=== PATIENT | male | born 1960 | race Caucasian/White ===

== ENCOUNTER 2017-02-09 16:10 | Observation (INO) | payer OTHER ==
[~2017-02-09] VITALS: Ht 177.8 cm; Wt 104.8 kg
[~2017-02-09 16:10] MED LIST: ATEN-173 PO; BNT10 PO; LISI-725 PO; OXYC1TAB3 PO; PRLSR20 PO
[2017-02-09] MEDS ORDERED: ONDANSETRON INJ 2 MG/ML 2 ML VIAL IV STA (16:55)
[2017-02-09] MEDS ORDERED: GI COCKTAIL PO STA (16:55)
[2017-02-09] MEDS ORDERED: ASPIRIN 324 MG CHEW PO STA (16:55)
--- NOTE | 2017-02-09 16:59 | EMERGENCY ROOM VISIT NOTE ---
History Report prepared by Letty: Claudia Amaya Under the Supervision of: Dr. Michael Anna M.D. First contact with patient: 16:43 Chief Complaint: GI ASSESSMENT Stated Complaint: CHEST PAIN, ABDOMINAL PAIN Nursing Triage Summary: blood in stool. abdominal pain for the past several days. chest pains and shortness of breath History of Present Illness The patient is a 56 year old white male with a past medical history of hypertension and reflux who presents to the ED with a cc of constant burning abdominal pain beginning 2 days ago. The patient states that he was seen here 1 month ago for rectal bleeding. He reports that he was having abdominal pain and chest pain that feels crushing and radiates into his left arm and shoulder. The patient notes that he began having rectal bleeding again and this is a recurring issue for him. Positive shortness of breath and fever that resolved yesterday. Negative leg swelling, cough. He notes that he had a bowel movement today that was normal with only a small amount of blood. He rates his pain as a 9/10 in severity. He notes that his pain is worse with exertion. Source of History: patient Onset: 2 days ago Position: abdomen Symptom Intensity: 9/10 Quality: burning Timing: constant Modifying Factors (Worsening): exertion Associated Symptoms: + chest pain, + SOB, No cough Note: Pt denies leg swelling. Review of Systems See HPI for pertinent positives and negatives. A total of ten systems were reviewed and were otherwise negative. Past Medical & Surgical Medical Problems: (1) Abdominal pain (2) Chest pain (3) GERD (gastroesophageal reflux disease) (4) HTN (hypertension) (5) Osteoarthritis (6) Rectal bleeding (7) Rectal bleeding (8) UGIB (upper gastrointestinal bleed) Surgical Problems: (1) History of bilateral knee replacement (2) History of tonsillectomy and adenoidectomy (3) Hx of appendectomy (4) Hx of cholecystectomy (5) Hx of vasectomy Family History No pertinent family history stated. Social History Smoking Status: Never Smoker Alcohol Use: none Marital Status: Housing Status: lives with significant other Occupation Status: employed Current/Historical Medications Scheduled Atenolol (Tenormin), 25 MG PO DAILY Lisinopril (Zestril), 20 MG PO DAILY Omeprazole (Prilosec), 40 MG PO DAILY Scheduled PRN Dicyclomine HCl (Dicyclomine HCl), 10 MG PO BID PRN for cramping Oxycodone Ir (Roxicodone Ir), 5 MG PO Q6 PRN for Severe Pain Allergies Coded Allergies: Ketorolac Tromethamine (Verified Allergy, Unknown, SHORTNESS OF BREATH, RASH, 02/09/17) Physical Exam Vital Signs Date Time Temp Pulse Resp B/P (MAP) Pulse Ox O2 Delivery O2 Flow Rate FiO2 02/09/17 17:45 66 113/60 95 Room Air 02/09/17 17:42 75 109/69 95 Room Air 02/09/17 17:40 69 16 118/72 96 Room Air 02/09/17 17:29 60 02/09/17 16:15 37.1 69 18 111/65 95 Room Air Physical Exam GENERAL: Awake, alert, well-appearing, NAD HENT: Normocephalic, atraumatic. EYES: Normal conjunctiva. Sclera non-icteric. NECK: Supple. No nuchal rigidity. FROM. RESPIRATORY: CTAB, no rhonchi, wheezing, crackles CARDIAC: RRR, no MRG ABDOMEN: Soft, NTND, BS+ MSK: No chest wall TTP, no LE edema. Chest pain is not reproducible NEURO: GCS 15, CN 2-12 intact, moves all 4s on command SKIN: No rash or jaundice noted. Medical Decision & Procedures Laboratory Results 02/09/17 17:15 Red Blood Count 4.65, Mean Corpuscular Volume 87.3, Mean Corpuscular Hemoglobin 30.5, Mean Corpuscular Hemoglobin Concent 35.0, Mean Platelet Volume 9.7, Neutrophils (%) (Auto) 70.2, Lymphocytes (%) (Auto) 19.7, Monocytes (%) (Auto) 7.9, Eosinophils (%) (Auto) 1.8, Basophils (%) (Auto) 0.3, Neutrophils # (Auto) 5.03, Lymphocytes # (Auto) 1.41, Monocytes # (Auto) 0.57, Eosinophils # (Auto) 0.13, Basophils # (Auto) 0.02 02/09/17 17:15 Test 02/09/17 17:00 02/09/17 17:15 Urine Color YELLOW Urine Appearance CLEAR (CLEAR) Urine pH 5.5 (4.5-7.5) Urine Specific [place] 1.021 (1.000-1.030) Urine Protein NEG (NEG) Urine Glucose (UA) NEG (NEG) Urine Ketones NEG (NEG) Urine Occult Blood NEG (NEG) Urine Nitrite NEG (NEG) Urine Bilirubin NEG (NEG) Urine Urobilinogen NEG (NEG) Urine Leukocyte Esterase TRACE (NEG) Urine WBC (Auto) 1-5 /hpf (0-5) Urine RBC (Auto) 0-4 /hpf (0-4) Urine Hyaline Casts (Auto) 1-5 /lpf (0-5) Urine Epithelial Cells (Auto) 5-10 /lpf (0-5) Urine Bacteria (Auto) NEG (NEG) White Blood Count 7.17 K/uL (4.8-10.8) Red Blood Count 4.65 M/uL (4.7-6.1) Hemoglobin 14.2 g/dL (14.0-18.0) Hematocrit 40.6 % (42-52) Mean Corpuscular Volume 87.3 fL (80-100) Mean Corpuscular Hemoglobin 30.5 pg (25-34) Mean Corpuscular Hemoglobin Concent 35.0 g/dl (32-36) Platelet Count 230 K/uL (130-400) Mean Platelet Volume 9.7 fL (7.4-10.4) Neutrophils (%) (Auto) 70.2 % Lymphocytes (%) (Auto) 19.7 % Monocytes (%) (Auto) 7.9 % Eosinophils (%) (Auto) 1.8 % Basophils (%) (Auto) 0.3 % Neutrophils # (Auto) 5.03 K/uL (1.4-6.5) Lymphocytes # (Auto) 1.41 K/uL (1.2-3.4) Monocytes # (Auto) 0.57 K/uL (0.11-0.59) Eosinophils # (Auto) 0.13 K/uL (0-0.5) Basophils # (Auto) 0.02 K/uL (0-0.2) RDW Standard Deviation 40.3 fL (36.4-46.3) RDW Coefficient of Variation 12.5 % (11.5-14.5) Immature Granulocyte % (Auto) 0.1 % Immature Granulocyte # (Auto) 0.01 K/uL (0.00-0.02) Anion Gap 6.0 mmol/L (3-11) Est Creatinine Clear Calc Drug Dose 98.2 ml/min Estimated GFR () 94.3 Estimated GFR (Non- 81.4 BUN/Creatinine Ratio 13.1 (10-20) Calcium Level 8.8 mg/dl (8.5-10.1) Total Bilirubin 0.4 mg/dl (0.2-1) Direct Bilirubin < 0.1 mg/dl (0-0.2) Aspartate Amino Transf (AST/SGOT) 13 U/L (15-37) Alanine Aminotransferase (ALT/SGPT) 32 U/L (12-78) Alkaline Phosphatase 65 U/L (45-117) Troponin I < 0.015 ng/ml (0-0.045) Total Protein 7.5 gm/dl (6.4-8.2) Albumin 4.0 gm/dl (3.4-5.0) Lipase 89 U/L (73-393) Laboratory results reviewed by me Medications Administered Medications (Trade) Dose Ordered Sig/Hayley Route Start Time Stop Time Status Last Admin Dose Admin Nitroglycerin (Nitrostat Tab) 0.4 mg PRN PRN SL 02/09/17 17:00 03/11/17 16:59 02/09/17 17:38 0.4 MG Ondansetron HCl (Zofran Inj) 4 mg NOW STAT IV 02/09/17 16:55 02/09/17 16:57 DC 02/09/17 17:39 4 MG Aspirin (Aspirin Chew) 324 mg NOW STAT PO 02/09/17 16:55 02/09/17 16:57 DC 02/09/17 17:37 324 MG Al Hydroxide/Mg Hydroxide (Maalox Susp) 30 ml STK-MED ONCE .ROUTE 02/09/17 17:34 02/09/17 17:35 DC 02/09/17 17:38 30 ML Lidocaine HCl (Viscous Lidocaine 2% Soln) 20 ml STK-MED ONCE .ROUTE 02/09/17 17:34 02/09/17 17:35 DC 02/09/17 17:38 20 ML Morphine Sulfate (MoRPHine SULFATE INJ) 4 mg NOW STAT IV 02/09/17 17:50 02/09/17 17:51 DC 02/09/17 18:04 4 MG ECG Indication: chest pain Rate (beats per minute): 65 Rhythm: normal sinus Findings: Q waves (l3), left axis deviation, other (t wave flattening inferiorly no other STS or TWI) ED Course 1643: The patient was evaluated in room B3. A complete history and physical exam was performed. 1715: I reevaluated and updated the patient. 1726: Discussed the patient's case with Deidre Davis [facility]-C of [facility]. The patient will be evaluated for further treatment and disposition. 1742: Upon reexamination, the patient was doing well. I discussed the test results and treatment plan with him. The patient will be evaluated for further management. Medical Decision Differential diagnosis: Etiologies such as cardiac ischemia, aortic dissection, pulmonary embolism, pneumonia, pneumothorax, musculoskeletal, infections, pericarditis, myocarditis , esophageal rupture, gastrointestinal, as well as others were entertained. Etiologies such as appendicitis, diverticulitis, PUD, biliary pathology, UTI, pancreatitis, obstruction, mesenteric ischemia, aortic pathology, infections, inflammatory bowel disease, renal colic, as well as others were entertained. Patient was seen and evaluated the bedside. Patient was complaining of chest pain and abdominal pain. Patient states the abdominal abdominal pain was diffuse with some burning and he noticed some rectal bleeding. Patient was recently seen and evaluated for this earlier in the month where he had a negative EGD and a colonoscopy which showed diverticulosis without diverticulitis but did have some internal hemorrhoids. Patient's chest pain was concerning. Patient also does have risk factors of hypertension. Patient has no known early cardiac history in his family. Patient's troponin was negative. Patient's EKG did show some T-wave flattening inferiorly. Patient did receive an aspirin as well as a nitroglycerin. Patient said the nitroglycerin did mildly improved chest pain. I did speak with the admitting team and discussed the patient heart been worked up for his rectal bleeding and that he likely had a source of internal hemorrhoids. However, given the patient 's concerning chest pain story in no prior history of being worked up here benefit from further evaluation treatment. Patient was admitted to medicine. Medication Reconcilliation Current Medication List: was personally reviewed by me Blood Pressure Screening Patient's blood pressure: Normal blood pressure Blood pressure disposition: Did not require urgent referral Consults Time Called: 1720 Consulting Physician: Deidre Davis PA-C of [facility] Returned Call: 1726 Discussed the patient's case with Deidre Medei[facility]. The patient will be evaluated for further treatment and disposition. Impression Primary Impression: Atypical chest pain Scribe Attestation The scribe's documentation has been prepared under my direction and personally reviewed by me in its entirety. I confirm that the note above accurately reflects all work, treatment, procedures, and medical decision making performed by me. Departure Information Dispostion Being Evaluated By Hospitalist Referrals No Doctor, Assigned (PCP) Patient Instructions My [facility]
[2017-02-09] MEDS ORDERED: NITROGLYCERIN 0.4 MG SL PER TAB CHARGE SL PRN ×2 (17:00→19:15)
[2017-02-09] MEDS ORDERED: ALUMINUM/MAGNESIUM SUSP 30 ML UDC ONE (17:34)
[2017-02-09] MEDS ORDERED: LIDOCAINE HCL 2% VISC SOLN 20 ML UDC ONE (17:34)
[2017-02-09 17:46] LABS: URINE APPEARANCE CLEAR (CLEAR); URINE BILIRUBIN NEG (NEG); URINE COLOR YELLOW; URINE NITRITE NEG (NEG); URINE PH 5.5 (4.5-7.5); URINE SPECIFIC GRAVITY 1.021 (1.000-1.030); UROBILINOGEN NEG (NEG); ZZUR CULT IF INDIC CLEAN CATCH NO
[2017-02-09] MEDS ORDERED: MoRPHine SULFATE 4 MG/ML 1 ML CARP\\VIAL IV STA (17:50)
[2017-02-09 17:53] LABS: MANUAL MICROSCOPIC REQUIRED? NO; REVIEW REQ? NO
[2017-02-09 17:54] LABS: BASO % 0.3 %; BASO ABS # 0.02 K/uL (0-0.2); COMPLETE YES; EOS % 1.8 %; HEMATOCRIT 40.6 % (42-52); IG% 0.1 %; LYMPH % 19.7 %; LYMPH ABS # 1.41 K/uL (1.2-3.4); MEAN CELL VOLUME 87.3 fL (80-100); MEAN CORPUSCULAR HEMOGLOBIN 30.5 pg (25-34); MEAN PLATELET VOLUME 9.7 fL (7.4-10.4); MONO % 7.9 %; NEUT % 70.2 %; PLATELET COUNT 230 K/uL (130-400); RED BLOOD COUNT 4.65 M/uL (4.7-6.1); WHITE BLOOD COUNT 7.17 K/uL (4.8-10.8)
[2017-02-09 18:14] LABS: ALT/SGPT 32 U/L (12-78); AST/SGOT 13 U/L (15-37); BLOOD UREA NITROGEN 14 mg/dl (7-18); BUN/CREATININE RATIO 13.1 (10-20); CALCIUM 8.8 mg/dl (8.5-10.1); CARBON DIOXIDE 26 mmol/L (21-32); CHLORIDE 105 mmol/L (98-107); CREATININE 1.03 mg/dl (0.60-1.40); GLUCOSE 84 mg/dl (70-99); POTASSIUM 3.9 mmol/L (3.5-5.1); SODIUM 137 mmol/L (136-145)
[2017-02-09 18:19] LABS: ALKALINE PHOSPHATASE 65 U/L (45-117)
[2017-02-09] MEDS ORDERED: ONDANSETRON INJ 2 MG/ML 2 ML VIAL IV PRN (19:15)
[2017-02-09] MEDS ORDERED: ACETAMINOPHEN 325 MG TAB PO PRN (19:30)
[2017-02-09] MEDS: MoRPHine SULFATE 2 MG/ML CARP IV PRN ×2 (19:40→22:59)
[2017-02-09 20:00] VITALS: BP 130/77; PULSE 55; TEMP 36.8; O2SAT 97; Ht 177.8 cm; Wt 104.8 kg
[2017-02-09] MEDS ORDERED: IV FLUIDS COMPLETED PRN (20:00)
[2017-02-09] MEDS ORDERED: DICYCLOMINE HCL 10 MG CAP PO PRN (20:15)
--- NOTE | 2017-02-09 20:19 | History and Physical ---
History & Physical Date & Time of Service: Feb 09, 2017 at 19:28 Chief Complaint: Chest Pain, Abdominal Pain Primary Care Physician: No Doctor, Assigned History of Present Illness Source: patient Pt is 56 y/o M with PMH HTN, GERD, OA, Hx avascular necrosis, GI bleed presented to ER with c/o CP and abdominal pain. Pt reports past 2 days with upper and lower abdominal pain and yesterday with dark red bleeding per rectum and dark red blood noted in BM's and reports BM was almost black color. Reports 2 bloody BMs yesterday and one today this morning, no bleeding per rectum noted since. Denies vomiting but c/o nausea. States this morning started having mid and left sided pressure and crushing pain that radiates to L arm. [place] a little lightheaded this morning with got up. [place] like noticed some swelling to ankles once or twice a week after prolonged standing, resolves with elevation legs/ feet. Denies CP currently but does c/o epigastric discomfort and abdominal discomfort. Hx GI bleed admitted on 01/17/17. EGD: 01/19/17 - hiatal hernia. Colonoscopy: 01/20/17 - internal hemorrhoids, diverticulosis. 01/17/17: CT abd/ pelvis: no diverticulitis or bowel obstruction. Pt states since d/c he was doing well and not having abdominal pain or rectal bleeding until yesterday. Denies using NSAIDs. Denies fever/chills, diaphoresis, [place], syncope, vision changes, neck pain, SOB, orthopnea, palpitations, cough, sore throat, choking, otalgia, rhinorrhea, paresthesias, weakness, rashes, urinary symptoms. Reports hx stress test couple years ago which he reports was normal. Reports follows with [facility] - follows with [facility] In ER negative troponin. Given ASA, Zofran, GI cocktail without relief. Given nitro and morphine with moderate relief. Vitals stable. H&H stable. Past Medical/Surgical History Medical Problems: (1) GERD (gastroesophageal reflux disease) Status: Chronic (2) HTN (hypertension) Status: Chronic (3) Osteoarthritis Status: Chronic Surgical Problems: (1) History of bilateral knee replacement Status: Resolved (2) History of tonsillectomy and adenoidectomy Status: Resolved (3) Hx of appendectomy Status: Resolved (4) Hx of cholecystectomy Status: Resolved (5) Hx of vasectomy Status: Resolved Family History Diabetes mellitus FATHER FH: CAD (coronary artery disease) FATHER FH: COPD (chronic obstructive pulmonary disease) MOTHER FH: cancer MOTHER (pancreatitic CA) Social History Smoking Status: Never Smoker Smokeless Tobacco Use: No Alcohol Use: none Drug Use: none Marital Status: other (seperated) Occupational Status: employed Allergies Coded Allergies: Ketorolac Tromethamine (Verified Allergy, Unknown, SHORTNESS OF BREATH, RASH, 02/09/17) Home Medications Scheduled Atenolol (Tenormin), 25 MG PO DAILY Lisinopril (Zestril), 20 MG PO DAILY Omeprazole (Prilosec), 40 MG PO DAILY Scheduled PRN Dicyclomine HCl (Dicyclomine HCl), 10 MG PO BID PRN for cramping Oxycodone Ir (Roxicodone Ir), 5 MG PO Q6 PRN for Severe Pain Review of Systems Constitutional: + weight loss (reports lost 20 pounds over past month by changing his diet and walking couple of times a week), No fever, No chills, No sweats, No weakness, No fatigue, No problem reported Eyes: No eye pain, No redness, No discharge, No diplopia ENT: No unusual epistaxis, No nasal symptoms, No sore throat, No tinnitus, No trouble swallowing Respiratory: No sputum, No wheezing, No dyspnea on exertion, No dyspnea at rest , No hemoptysis Cardiovascular: + problem reported (see HPI) Abdomen: + problem reported (see HPI) Musculoskeletal: + joint pain (chronic R hip pain, hx avascular necrosis, on oxycodone Q6H prn pain), No swelling, No calf pain Genitourinary - Male: No hematuria, No dysuria, No urinary frequency, No urinary urgency, No urinary hesitancy, No urinary retention Neurologic: No paralysis, No weakness, No numbness/tingling, No vertigo, No balance problems Psychiatric: No depression symptoms, No anxiety Endocrine: No fatigue, No excessive thirst, No excessive urination Integumentary: No rash, No itch Physical Exam Vital Signs Date Time Temp Pulse Resp B/P (MAP) Pulse Ox O2 Delivery O2 Flow Rate FiO2 02/09/17 17:45 66 113/60 95 Room Air 02/09/17 17:42 75 109/69 95 Room Air 02/09/17 17:40 69 16 118/72 96 Room Air 02/09/17 17:29 60 02/09/17 16:15 37.1 69 18 111/65 95 Room Air General Appearance: no apparent distress, + obese Head: normocephalic, atraumatic Eyes: normal inspection, PERRL, EOMI, sclerae normal ENT: hearing grossly normal, pharynx normal, + pertinent finding (moist mucous membranes) Neck: supple, no JVD, trachea midline Respiratory/Chest: chest non-tender, lungs clear, normal breath sounds, no respiratory distress, no accessory muscle use Cardiovascular: regular rate, rhythm, no edema, no murmur, normal peripheral pulses Abdomen/GI: normal bowel sounds, soft, + pertinent finding (tenderness to epigastric, LLQ without guarding or rebound) Extremities/Musculoskelatal: normal inspection, normal capillary refill, no pedal edema, non-tender 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: alert, normal mood/affect, oriented x 3 Skin: normal color, warm/dry, no rash Diagnostics Laboratory Results Results Past 24 Hours Test 02/09/17 17:00 02/09/17 17:15 Range/Units Urine Color YELLOW Urine Appearance CLEAR CLEAR Urine pH 5.5 4.5-7.5 Urine Specific [place] 1.021 1.000-1.030 Urine Protein NEG NEG Urine Glucose (UA) NEG NEG Urine Ketones NEG NEG Urine Occult Blood NEG NEG Urine Nitrite NEG NEG Urine Bilirubin NEG NEG Urine Urobilinogen NEG NEG Urine Leukocyte Esterase TRACE NEG Urine WBC (Auto) 1-5 0-5 /hpf Urine RBC (Auto) 0-4 0-4 /hpf Urine Hyaline Casts (Auto) 1-5 0-5 /lpf Urine Epithelial Cells (Auto) 5-10 0-5 /lpf Urine Bacteria (Auto) NEG NEG White Blood Count 7.17 4.8-10.8 K/uL Red Blood Count 4.65 4.7-6.1 M/uL Hemoglobin 14.2 14.0-18.0 g/dL Hematocrit 40.6 42-52 % Mean Corpuscular Volume 87.3 80-100 fL Mean Corpuscular Hemoglobin 30.5 25-34 pg Mean Corpuscular Hemoglobin Concent 35.0 32-36 g/dl Platelet Count 230 130-400 K/uL Mean Platelet Volume 9.7 7.4-10.4 fL Neutrophils (%) (Auto) 70.2 % Lymphocytes (%) (Auto) 19.7 % Monocytes (%) (Auto) 7.9 % Eosinophils (%) (Auto) 1.8 % Basophils (%) (Auto) 0.3 % Neutrophils # (Auto) 5.03 1.4-6.5 K/uL Lymphocytes # (Auto) 1.41 1.2-3.4 K/uL Monocytes # (Auto) 0.57 0.11-0.59 K/uL Eosinophils # (Auto) 0.13 0-0.5 K/uL Basophils # (Auto) 0.02 0-0.2 K/uL RDW Standard Deviation 40.3 36.4-46.3 fL RDW Coefficient of Variation 12.5 11.5-14.5 % Immature Granulocyte % (Auto) 0.1 % Immature Granulocyte # (Auto) 0.01 0.00-0.02 K/uL Sodium Level 137 136-145 mmol/L Potassium Level 3.9 3.5-5.1 mmol/L Chloride Level 105 98-107 mmol/L Carbon Dioxide Level 26 21-32 mmol/L Anion Gap 6.0 3-11 mmol/L Blood Urea Nitrogen 14 7-18 mg/dl Creatinine 1.03 0.60-1.40 mg/dl Est Creatinine Clear Calc Drug Dose 98.2 ml/min Estimated GFR () 94.3 Estimated GFR (Non- 81.4 BUN/Creatinine Ratio 13.1 10-20 Random Glucose 84 70-99 mg/dl Calcium Level 8.8 8.5-10.1 mg/dl Total Bilirubin 0.4 0.2-1 mg/dl Direct Bilirubin < 0.1 0-0.2 mg/dl Aspartate Amino Transf (AST/SGOT) 13 15-37 U/L Alanine Aminotransferase (ALT/SGPT) 32 12-78 U/L Alkaline Phosphatase 65 45-117 U/L Troponin I < 0.015 0-0.045 ng/ml Total Protein 7.5 6.4-8.2 gm/dl Albumin 4.0 3.4-5.0 gm/dl Lipase 89 73-393 U/L EKG EKG: NSR, rate 65, no significant changes noted from 01/17/17 Impression Assessment and Plan CHEST PAIN R/O ACS. Risk factors: HTN, obesity Vitals stable. Negative initial troponin. Pt reports relief with nitro and morphine. EKG: NSR rate [address] elevations noted. Will add CXR. -Monitor Vitals - Repeat EKG in am - Will trend cardiac enzymes - ECHO -Cardiology consult -lipid panel in AM -ASA -continue atenolol -Nitro prn CP and repeat EKG for CP -Morphine prn CP ABDOMINAL PAIN/RECTAL BLEEDING Reports dark red blood and dark black color stools past 2 days, last time blood per rectum this am. Pt with 2 recent abd/pelvis CT scans since 12/2016. Will hold on additional at this time and continue to monitor and consider if worsening. Hx colonoscopy 01/20/17 showing internal hemorrhoids and diverticulosis. Hx EGD 01/19/17 showing hiatal hernia. Suspect diverticular vs hemorrhoid bleeding -monitor H&H -repeat CBC, CMP in am -protonix IV -zofran prn -morphine prn pain -NSS 75ml/hr -clear liquids -continue dicyclomine prn -consider imaging if worsening -consider GI consult if worsening/no improvement HTN BP stable at this time -continue atenolol -continue lisinopril GERD -PPI OA/CHRONIC HIP PAIN -continue oxycodone Q6H prn pain DVT PROPHYLAXIS -SCDs DISPOSITION -admit tele -Full Code as per discussion with pt -Follows with [facility] for routine care Pt was seen with Dr Morgan. See addendum Agree with above H and P. Briefly 56m presents with ongoing abdominal pain since last few days.Also noticed some rectal bleeding. Today he also noticed chest pain going to his left jaw and arm. Currently resting comfortably and hemodynamically stable. 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 abdominal pain/rectal bleeding recently had egd and colonoscopy showing internal hemorrhoids and diverticulosis monitor h and h consider gi consult Level of Care Telemetry Resuscitation Status FULL RESUSCITATION VTE Prophylaxis VTE Risk Assessment Done? Y/N: Yes Risk Level: Moderate Given or contraindicated: SCD's
[2017-02-09] MEDS: OXYCODONE HCL IR 5 MG TAB (IMMEDIATE RELEASE) PO PRN (20:45)
[2017-02-09] MEDS: PANTOprazole INJ 40 MG in SYRINGE 0 ML IV SCH (20:45)
[2017-02-09] MEDS: SODIUM CHLORIDE 0.9% 1000ML 1,000 ML IV SCH (20:45)
--- NOTE | 2017-02-09 22:52 | DIAGNOSTIC IMAGING REPORT ---
CHEST 2 VIEWS ROUTINE CLINICAL HISTORY: 56 years-old Male presenting with CP. TECHNIQUE: PA and lateral views of the chest were obtained. COMPARISON: 01/17/2017. FINDINGS: The presence of multiple external leads degrade image quality. Allowing for this, cardiomediastinal silhouette normal. Lungs and pleural spaces clear. Osseous structures normal. Cholecystectomy clips likely present. IMPRESSION: 1. No acute cardiopulmonary disease. Electronically signed by: Valeriano Regalado M.D. 02/09/2017 10:51 PM Dictated Date/Time: 02/09/2017 10:50 PM
[2017-02-09 23:22] LABS: CKMB/CK RATIO 1.5 (0-3.0)
[2017-02-09 23:49] VITALS: BP 93/51; PULSE 65; TEMP 36.6; O2SAT 96
[2017-02-10] VITALS (8 sets, daily range): BP systolic 85–142; BP diastolic 52–80; PULSE 52–64; TEMP 36.5–36.7; O2SAT 95–99
[2017-02-10] MEDS: MoRPHine SULFATE 2 MG/ML CARP IV PRN ×2 (03:33→06:44)
[2017-02-10 05:41] LABS: HEMATOCRIT 37.1 % (42-52); MEAN CELL VOLUME 88.5 fL (80-100); MEAN CORPUSCULAR HEMOGLOBIN 29.4 pg (25-34); MEAN CORPUSCULAR HGB CONC 33.2 g/dl (32-36); MEAN PLATELET VOLUME 9.6 fL (7.4-10.4); PLATELET COUNT 201 K/uL (130-400); RED BLOOD COUNT 4.19 M/uL (4.7-6.1); WHITE BLOOD COUNT 5.65 K/uL (4.8-10.8)
[2017-02-10 06:16] LABS: ALT/SGPT 26 U/L (12-78); AST/SGOT 9 U/L (15-37); BLOOD UREA NITROGEN 15 mg/dl (7-18); BUN/CREATININE RATIO 13.5 (10-20); CARBON DIOXIDE 29 mmol/L (21-32); CHLORIDE 107 mmol/L (98-107); GLUCOSE 84 mg/dl (70-99); POTASSIUM 3.8 mmol/L (3.5-5.1); SODIUM 142 mmol/L (136-145)
[2017-02-10 06:33] LABS: ALB/GLOB RATIO 1.2 (0.9-2); ALKALINE PHOSPHATASE 54 U/L (45-117); CHOLESTEROL 101 mg/dl (0-200); CHOLESTEROL/HDL RATIO 3.6; CKMB/CK RATIO 2.3 (0-3.0); HDL CHOLESTEROL 28 mg/dl; LDL CHOLESTEROL CALCULATED 48 mg/dl; TRIGLYCERIDES 124 mg/dl (0-150); VERY LOW DENSITY LIPOPROT CALC 25 mg/dl
[2017-02-10] MEDS: SODIUM CHLORIDE 0.9% 1000ML 1,000 ML IV SCH (08:56)
[2017-02-10] MEDS: PANTOprazole INJ 40 MG in SYRINGE 0 ML IV SCH (08:59)
[2017-02-10] MEDS ORDERED: LISINOPRIL 20 MG TAB PO SCH (09:00)
[2017-02-10] MEDS ORDERED: ASPIRIN 81 MG ECTAB PO SCH (09:00)
[2017-02-10] MEDS: OXYCODONE HCL IR 5 MG TAB (IMMEDIATE RELEASE) PO PRN (10:21)
[2017-02-10] MEDS ORDERED: ACETAMINOPHEN IV 100 ML IV PRN (11:30)
--- NOTE | 2017-02-10 12:44 | Cardiology Consultation ---
Cardiology Consultation Date of Consultation: Feb 10, 2017 History of Present Illness Patrice Cr is a 56 year old male seen in cardiology consultation per the request of Koki Davis PA-C for the evaluation of chest discomfort. The patient is cared for by the [facility], and does not follow routinely with cardiology. He believes that he had a stress test performed approximately 3 years ago which was reportedly normal per the patient. His recent history is notable for an admission to this institution from 01/17/17 and 01/21/17 with rectal bleeding. He had a CT of the abdomen and pelvis that revealed pandiverticulosis. He went on to have an EGD without any significant abnormalities. Colonoscopy revealed diverticulosis. No stock that perhaps his rectal bleeding was due to diverticulosis, infectious colitis, or even hemorrhoidal bleeding. He was ultimately discharged. He noted that his abdominal discomfort that he felt during that hospitalization and rectal bleeding had subsided for some time. Approximately 2 days ago however he started to have additional blood mixed in with his stool. And then he started having left-sided abdominal discomfort that radiated to his left chest and even into his left shoulder. Although he describes some exertional component to the discomfort, for the most part the pain is persistent and occurs when he is lying flat. During my interview with him, he did not appear to be in any acute distress. He did express frustration because he is not feeling well. Morphine had palliated his discomfort, but this was subsequently discontinued due to concerns that was causing his blood pressure to get too low. He describes an 8/ 10 intensity discomfort, he certainly did not appear to be in acute distress during my interview with him. Past Medical/Surgical History Problem List: Medical Problems: (1) Abdominal pain (2) Chest pain (3) GERD (gastroesophageal reflux disease) (4) HTN (hypertension) (5) Osteoarthritis (6) Rectal bleeding (7) Rectal bleeding (8) UGIB (upper gastrointestinal bleed) Surgical Problems: (1) History of bilateral knee replacement (2) History of tonsillectomy and adenoidectomy (3) Hx of appendectomy (4) Hx of cholecystectomy (5) Hx of vasectomy History Social History: Patient is retired from the [employer]. He is a nonsmoker. He is to drink significant amount of alcohol, but quit 10 years ago Family History: Patient has family history of ischemic heart disease is father is alive at age 83 with history of past cardiac catheterization and cardiac stents per his recollection. The patient's mother several years ago due to palpitations of COPD. She was smoker, and she also probably had heart disease the details of which are unknown to the patient. The patient has a brother and sister, he does not know their heart history well , but does not believe that they have any known heart disease. Review Of Systems See above for pertinent positives & negatives. A total of 10 systems reviewed and were otherwise negative. Allergies Coded Allergies: Ketorolac Tromethamine (Verified Allergy, Unknown, SHORTNESS OF BREATH, RASH, 02/09/17) Medications Reported Home Medications Medications Dose Route/Sig Max Daily Dose Days Date Category Dicyclomine HCl 10 Mg Cap 10 Mg PO BID PRN 3 01/21/17 Rx Prilosec (Omeprazole) 20 Mg Capcr 40 Mg PO DAILY 01/17/17 Reported Roxicodone Ir (Oxycodone HCl) 5 Mg Tab 5 Mg PO Q6 PRN 01/17/17 Reported Tenormin (Atenolol) 25 Mg Tab 25 Mg PO DAILY 01/17/17 Reported Zestril (Lisinopril) 20 Mg Tab 20 Mg PO DAILY 01/17/17 Reported Physical Exam Vital Signs (Last 8hrs): Last 8 Hrs Date Time Temp Pulse Resp B/P (MAP) Pulse Ox O2 Delivery O2 Flow Rate FiO2 02/10/17 12:19 99 Room Air 02/10/17 10:54 36.7 64 20 130/80 (97) 99 Room Air 02/10/17 08:00 Room Air 02/10/17 07:23 36.6 52 20 104/66 (79) 95 Room Air 02/10/17 06:41 110/72 (85) General Appearance: Alert and Oriented x3. NAD. Head: Normocephalic Atraumatic. Eyes: PERRLA, EOMI, conjunctiva and sclera clear Neck: Supple. No carotid bruits noted. No JVD. No HJD. Respiratory: Breath sounds clear to auscultation bilaterally. No w/r/r. Cardiovascular: Reg rate and rhythm. S1 and S2 noted. No murmurs, rubs, gallops. PMI non displace. Abdomen: Normal bowel sounds, abdomen is soft, patient describes tenderness on palpation of the left upper quadrant of the abdomen, as well as palpation over his left chest, he does not grimace, does not guard with this. Extremities: No edema, no clubbing or cyanosis. distal pulses 2/4 bilaterally. Neuro: No focal deficits. Psychiatric: Normal affect. Data Last Resulted 02/10/17 05:14 Last Resulted 02/10/17 05:14 Past 24 Hours Test 02/09/17 17:15 02/09/17 22:52 02/10/17 05:14 Range/Units Troponin I < 0.015 < 0.015 < 0.015 0-0.045 ng/ml Creatine Kinase MB 0.6 0.7 0.5-3.6 ng/ml Creatine Kinase MB Ratio 1.5 2.3 0-3.0 Total Creatine Kinase 41 30 L 39-308 U/L EKG performed on arrival to the hospital again this morning reveals stable sinus rhythm without any significant ST changes or serial cardiac enzymes have been negative thus far. Resting echocardiogram reveals normal wall motion abnormalities, no significant valvular heart disease Assessment & Plan Impression: 56-year-old male 1. Left upper quadrant pain and chest discomfort. -Patient symptoms are atypical for angina. He states his symptoms have waxed and waned well over 48 hours, with no EKG changes, normal cardiac enzymes. I would anticipate that if these were anginal, he would have developed troponin elevation, EKG changes were echocardiographic changes. -His discomfort is also reproduced with palpation, this would be atypical for angina. 2. Recent rectal bleeding 3. Family history of ischemic heart disease Plan: The present time, with his symptoms do not sound like angina from a clinical standpoint. I agree with ongoing GI evaluation which is already in progress. Will continue to monitor the patient peripherally. Further cardiac testing is felt to be indicated at this time.
--- NOTE | 2017-02-10 13:16 | ECHOCARDIOGRAM REPORT ---
*NOTICE TO RECEIVING LIBERTARIAN AGENCY This information is strictly Confidential and protected under [place] law. [place] law prohibits you from making any further disclosure of this information unless further disclosure is expressly permitted by the written consent of the person to whom it pertains or is authorized by law. A general authorization for the release of medical or other information is not sufficient for this purpose. Hospital accepts no responsibility if the information is made available to any other person, INCLUDING THE PATIENT. Interpretation Summary * Name: TAL GU Study Date: 02/10/2017 09:08 AM BP: 104/66 mmHg * Patient Location: [facility] HR: 52 * : 1960 (M/d/yyyy) Gender: Male Height: 70 in * Age: 56 yrs Ethnicity: [place] Weight: 231 lb * Ordering Physician: Koki Davis * Referring Physician: Self, Referred * Performed By: Yessi Young RDCS * * Reason For Study: Chest Pain * BSA: 2.2 m2 * The study was technically adequate. * -- Conclusions -- * The study was technically adequate. * There is mild concentric left ventricular hypertrophy. * No regional wall motion abnormalities noted. * The LV Ejection Fraction = 55-60%. * The right ventricle is normal in size and function. * The left atrium is mildly dilated. * Diastolic dysfunction, Grade II (pseudonormalization pattern). * There is trace mitral regurgitation. * Doppler findings do not suggest pulmonary hypertension. Procedure Details * A complete two-dimensional transthoracic echocardiogram was performed (2D, M-mode, Doppler and color flow Doppler). Left Ventricle * The left ventricle is normal in size. * There is mild concentric left ventricular hypertrophy. * Ejection Fraction = 55-60%. * Left ventricular systolic function is normal. * The left ventricular wall motion is normal. * No regional wall motion abnormalities noted. Right Ventricle * The right ventricle is normal in size and function. Atria * The left atrium is mildly dilated. * Right atrial size is normal. * There is no evidence of atrial septal defect, but resolution does not allow assessment for a patent foramen ovale. Mitral Valve * The mitral valve is normal. * There is no mitral valve stenosis. * There is trace mitral regurgitation. Tricuspid Valve * The tricuspid valve is normal. * There is no tricuspid stenosis. * Significant tricuspid regurgitation is absent. * Doppler findings do not suggest pulmonary hypertension. Aortic Valve * The aortic valve is trileaflet. * Aortic stenosis is absent. * There is no significant aortic regurgitation. Pulmonic Valve * The pulmonary valve is inadequately visualized, but the Doppler data is adequate for interpretation. * Pulmonic stenosis is absent. * Mild pulmonic valvular regurgitation. Great Vessels * The aortic root and proximal ascending aorta are normal sized. Pericardium/Pleural * There is no pericardial effusion. Great Vessels * Normal inferior vena cava diameter and respiratory variation suggests normal central venous pressure. Left Ventricular Diastolic Function * Diastolic dysfunction, Grade II (pseudonormalization pattern). MMode 2D Measurements and Calculations IVSd 1.2 cm IVSs 1.4 cm LVIDd 4.6 cm LVIDs 3.0 cm LVPWd 1.4 cm LVPWs 1.3 cm IVS/LVPW 0.84 FS 34.1 % EDV(Teich) 97.5 ml ESV(Teich) 35.9 ml EF(Teich) 63.2 % EDV(cubed) 97.5 ml ESV(cubed) 27.9 ml EF(cubed) 71.4 % % IVS thick 12.6 % % LVPW thick -11.74 % LV mass(C)d 236.9 grams LV mass(C)dI 106.7 grams/m\S\2 LV mass(C)s 128.7 grams LV mass(C)sI 58.0 grams/m\S\2 SV(Teich) 61.6 ml SI(Teich) 27.7 ml/m\S\2 SV(cubed) 69.7 ml SI(cubed) 31.4 ml/m\S\2 Ao root diam 3.2 cm Ao root area 8.1 cm\S\2 ACS 2.3 cm LA dimension 4.2 cm LA/Ao 1.3 LVAd ap4 35.7 cm\S\2 LVLd ap4 8.9 cm EDV(MOD-sp4) 124.3 ml EDV(sp4-el) 121.4 ml LVAs ap4 21.7 cm\S\2 LVLs ap4 7.3 cm ESV(MOD-sp4) 57.1 ml ESV(sp4-el) 54.6 ml EF(MOD-sp4) 54.1 % EF(sp4-el) 55.1 % LVAd ap2 36.3 cm\S\2 LVLd ap2 9.1 cm EDV(MOD-sp2) 129.7 ml EDV(sp2-el) 123.3 ml LVAs ap2 23.2 cm\S\2 LVLs ap2 8.0 cm ESV(MOD-sp2) 64.9 ml ESV(sp2-el) 57.2 ml EF(MOD-sp2) 50.0 % EF(sp2-el) 53.6 % LVLd %diff 1.7 % EDV(MOD-bp) 128.7 ml LVLs %diff 7.9 % ESV(MOD-bp) 62.6 ml EF(MOD-bp) 51.3 % SV(MOD-sp4) 67.3 ml SI(MOD-sp4) 30.3 ml/m\S\2 SV(MOD-sp2) 64.8 ml SI(MOD-sp2) 29.2 ml/m\S\2 SV(MOD-bp) 66.1 ml SI(MOD-bp) 29.8 ml/m\S\2 SV(sp4-el) 66.8 ml SI(sp4-el) 30.1 ml/m\S\2 SV(sp2-el) 66.1 ml SI(sp2-el) 29.8 ml/m\S\2 Doppler Measurements and Calculations MV E max ted 89.7 cm/sec MV A max ted 61.6 cm/sec MV E/A 1.5 MV dec time 0.27 sec Ao V2 max 120.5 cm/sec Ao max PG 5.8 mmHg Ao max PG (full) 2.3 mmHg LV V1 max PG 3.5 mmHg LV V1 max 93.9 cm/sec PA V2 max 124.2 cm/sec PA max PG 6.2 mmHg PI max ted 194.8 cm/sec PI max PG 15.3 mmHg PI dec slope 120.5 cm/sec\S\2 PI P1/2t 473.6 msec
[2017-02-10 13:31] LABS: BASO % 0.4 %; BASO ABS # 0.02 K/uL (0-0.2); COMPLETE YES; EOS % 2.6 %; HEMATOCRIT 38.6 % (42-52); IG% 0.2 %; LYMPH % 26.7 %; LYMPH ABS # 1.46 K/uL (1.2-3.4); MEAN CELL VOLUME 87.9 fL (80-100); MEAN CORPUSCULAR HEMOGLOBIN 29.8 pg (25-34); MEAN CORPUSCULAR HGB CONC 33.9 g/dl (32-36); MEAN PLATELET VOLUME 9.4 fL (7.4-10.4); MONO % 6.4 %; NEUT % 63.7 %; PLATELET COUNT 184 K/uL (130-400); RED BLOOD COUNT 4.39 M/uL (4.7-6.1); WHITE BLOOD COUNT 5.47 K/uL (4.8-10.8)
--- NOTE | 2017-02-10 13:55 | DIAGNOSTIC IMAGING REPORT ---
KUB CLINICAL HISTORY: Generalized abdominal pain. FINDINGS: 2 AP supine abdominal radiographs are correlated with abdominal CT dated 01/17/2017. Cholecystectomy clips are identified in the right upper quadrant. There is a nonobstructed abdominal bowel gas pattern. Prostatic calcifications are identified in the pelvis. There is no radiographic evidence of nephrolithiasis. No evidence of intraperitoneal free air is seen on these supine views. The bony structures appear intact. IMPRESSION: Nonobstructed abdominal bowel gas pattern. Electronically signed by: Sedrick Francis M.D. 02/10/2017 1:54 PM Dictated Date/Time: 02/10/2017 1:53 PM
--- NOTE | 2017-02-10 14:37 | Gastrointestinal Consultation ---
Gastrointestinal Consultation Date of Consultation: Feb 10, 2017 Attending Physician: Dr. Ac Consulting Physician: Dr. Guerrero Reason for Consultation: " Abdomen pain, anemia" History of Present Illness Patient is a 56 year old male patient of the [facility] who presented to the ED yesterday with c/o chest and abdomen pain and report of BMs that were black with red blood. He was also admitted here Jan 17 for abdominal pain. He tells me that he had been well since that discharge, until yesterday when he felt the urge to defecate, began with abdominal pain and nausea, noticed some anal pain during defecation and passed a formed dark brown BM (not quite black) with a little red mixed into the stool. He has not had vomiting. He pain has continued since then. On arrival, troponin and EKG was normal. Echo was normal as well. I spoke with Dr. Cintron who does not plan for further cardiac evaluation. Hb was 14 on arrival, down to 12.3 today. His baseline appears to be approx 13. BUN was 14 on arrival and is 15 today. A nurse's aid tells me that today, the patient passed a brown, formed BM without any blood and that a sample was sent for occult testing. The pt tells me that he has not passed a BM since arrival. LFTs , and lipase are normal. During his Jan 17 admission for abdominal pain, EGD was normal and colonoscopy showed only internal hemorrhoids. A non contrast CT on 01/17/17 suggested baer-diverticulosis, post cholecystectomy and appendectomy, no acute changes. Today, a KUB does not show obstruction. His abdomen is soft on palpation though he indicated pain throughout. No guarding was present on exam. Of note, he is on chronic narcotics for avascular necrosis. Currently, he is describing an 8 or 9 of 10 pain and tells us that the morphine didn't work and that Dilaudid worked in the past. He lives in [place] and seeks care through the [facility] in [place], [place] where he lived until about a year ago. He tells me that he does not go to the [facility] - that the ED there has been "shut down." Past Medical/Surgical History Medical Problems: (1) Atypical chest pain Status: Acute (2) Upper GI bleed Status: Acute Past Medical History: 1. GERD 2. HTN 3. Osteoarthritis 4. Avascular necrosis of the hip, on chronic narcotics. Past Surgical History: 1. EGD 01/19/17 Dr. Jarrett for abdominal pain: - Hiatus hernia. - Normal stomach. - Normal examined duodenum. - No specimens collected. : 2. Colonoscopy 01/20/17 for abdominal pain, rectal bleeding: - Diverticulosis in the sigmoid colon and in the descending colon. - The examined portion of the ileum was normal. - Internal hemorrhoids. - No specimens collected. Rec: Repeat colonoscopy in 5 years for screening purposes. 3. Cholecystectomy 4. Appendectomy Family History Diabetes mellitus FATHER FH: CAD (coronary artery disease) FATHER FH: COPD (chronic obstructive pulmonary disease) MOTHER FH: cancer MOTHER (pancreatitic CA) Social History Smoking Status: Never Smoker Alcohol Use: none Drug Use: none Marital Status: other (seperated) Housing Status: lives with significant other Occupation Status: employed Allergies Coded Allergies: Ketorolac Tromethamine (Verified Allergy, Unknown, SHORTNESS OF BREATH, RASH, 02/09/17) Current Medications Home Meds and Scripts Medications Dose Route/Sig Max Daily Dose Days Date Category Dicyclomine HCl 10 Mg Cap 10 Mg PO BID PRN 3 01/21/17 Rx Prilosec (Omeprazole) 20 Mg Capcr 40 Mg PO DAILY 01/17/17 Reported Roxicodone Ir (Oxycodone HCl) 5 Mg Tab 5 Mg PO Q6 PRN 01/17/17 Reported Tenormin (Atenolol) 25 Mg Tab 25 Mg PO DAILY 01/17/17 Reported Zestril (Lisinopril) 20 Mg Tab 20 Mg PO DAILY 01/17/17 Reported Review of Systems Constitutional: No fever, No chills, No sweats, No weight loss, No weakness Eyes: No eye pain, No redness ENT: No sore throat, No trouble swallowing, No pain on swallowing Respiratory: No cough, No wheezing, No shortness of breath, No dyspnea on exertion Cardiac: No chest pain, No edema, No palpitations Abdomen: + see HPI, + pain, + nausea, + GI bleeding, No vomiting, No diarrhea, No constipation Neuro: No memory loss, No weakness, No numbness/tingling, No vertigo, No balance problems Psych: No depression symptoms, No anxiety, No insomnia Heme: No abnormal bleeding/bruising, No night sweats Endo: No excessive thirst, No excessive urination Skin: No rash, No itch, No new/changing skin lesions, No jaundice Physical Exam Date Time Temp Pulse Resp B/P (MAP) Pulse Ox O2 Delivery O2 Flow Rate FiO2 02/10/17 10:54 36.7 64 20 130/80 (97) 99 Room Air 02/10/17 08:00 Room Air 02/10/17 07:23 36.6 52 20 104/66 (79) 95 Room Air 02/10/17 06:41 110/72 (85) 02/10/17 04:19 36.5 54 16 85/52 (63) 96 Room Air 02/10/17 04:00 Room Air 02/10/17 00:00 Room Air 02/09/17 23:49 36.6 65 17 93/51 (65) 96 Room Air 02/09/17 20:00 36.8 55 16 130/77 97 Room Air 02/09/17 19:42 72 15 120/58 97 Room Air 02/09/17 17:45 66 113/60 95 Room Air 02/09/17 17:42 75 109/69 95 Room Air 02/09/17 17:40 69 16 118/72 96 Room Air 02/09/17 17:29 60 02/09/17 16:15 37.1 69 18 111/65 95 Room Air General Appearance: + moderate distress Eyes: normal inspection, EOMI Neck: supple, no adenopathy, thyroid normal, no JVD Respiratory/Chest: chest non-tender, lungs clear, normal breath sounds, no accessory muscle use Cardiovascular: regular rate, rhythm, no JVD, no murmur Abdomen: normal bowel sounds, soft, no organomegaly, + tenderness (moderately tender over the entire abdomen, no guarding), + pertinent finding (able to sit up well in bed) Extremities: normal inspection, no pedal edema, normal capillary refill 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: alert, normal mood/affect, oriented x 3 Skin: normal color, no jaundice, warm/dry, no rash Laboratory Results Last 24 Hours Test 02/09/17 17:00 02/09/17 17:15 02/09/17 22:52 02/10/17 05:14 Urine Color YELLOW Urine Appearance CLEAR Urine pH 5.5 Urine Specific Francisco 1.021 Urine Protein NEG Urine Glucose (UA) NEG Urine Ketones NEG Urine Occult Blood NEG Urine Nitrite NEG Urine Bilirubin NEG Urine Urobilinogen NEG Urine Leukocyte Esterase TRACE Urine WBC (Auto) 1-5 /hpf Urine RBC (Auto) 0-4 /hpf Urine Hyaline Casts (Auto) 1-5 /lpf Urine Epithelial Cells (Auto) 5-10 /lpf Urine Bacteria (Auto) NEG White Blood Count 7.17 K/uL 5.65 K/uL Red Blood Count 4.65 M/uL 4.19 M/uL Hemoglobin 14.2 g/dL 12.3 g/dL Hematocrit 40.6 % 37.1 % Mean Corpuscular Volume 87.3 fL 88.5 fL Mean Corpuscular Hemoglobin 30.5 pg 29.4 pg Mean Corpuscular Hemoglobin Concent 35.0 g/dl 33.2 g/dl Platelet Count 230 K/uL 201 K/uL Mean Platelet Volume 9.7 fL 9.6 fL Neutrophils (%) (Auto) 70.2 % Lymphocytes (%) (Auto) 19.7 % Monocytes (%) (Auto) 7.9 % Eosinophils (%) (Auto) 1.8 % Basophils (%) (Auto) 0.3 % Neutrophils # (Auto) 5.03 K/uL Lymphocytes # (Auto) 1.41 K/uL Monocytes # (Auto) 0.57 K/uL Eosinophils # (Auto) 0.13 K/uL Basophils # (Auto) 0.02 K/uL RDW Standard Deviation 40.3 fL 40.5 fL RDW Coefficient of Variation 12.5 % 12.7 % Immature Granulocyte % (Auto) 0.1 % Immature Granulocyte # (Auto) 0.01 K/uL Sodium Level 137 mmol/L 142 mmol/L Potassium Level 3.9 mmol/L 3.8 mmol/L Chloride Level 105 mmol/L 107 mmol/L Carbon Dioxide Level 26 mmol/L 29 mmol/L Anion Gap 6.0 mmol/L 6.0 mmol/L Blood Urea Nitrogen 14 mg/dl 15 mg/dl Creatinine 1.03 mg/dl 1.10 mg/dl Est Creatinine Clear Calc Drug Dose 98.2 ml/min 92.0 ml/min Estimated GFR () 94.3 87.1 Estimated GFR (Non- 81.4 75.2 BUN/Creatinine Ratio 13.1 13.5 Random Glucose 84 mg/dl 84 mg/dl Calcium Level 8.8 mg/dl 8.0 mg/dl Total Bilirubin 0.4 mg/dl 0.2 mg/dl Direct Bilirubin < 0.1 mg/dl Aspartate Amino Transf (AST/SGOT) 13 U/L 9 U/L Alanine Aminotransferase (ALT/SGPT) 32 U/L 26 U/L Alkaline Phosphatase 65 U/L 54 U/L Troponin I < 0.015 ng/ml < 0.015 ng/ml < 0.015 ng/ml Total Protein 7.5 gm/dl 5.9 gm/dl Albumin 4.0 gm/dl 3.2 gm/dl Lipase 89 U/L Total Creatine Kinase 41 U/L 30 U/L Creatine Kinase MB 0.6 ng/ml 0.7 ng/ml Creatine Kinase MB Ratio 1.5 2.3 Globulin 2.7 gm/dl Albumin/Globulin Ratio 1.2 Triglycerides Level 124 mg/dl Cholesterol Level 101 mg/dl HDL Cholesterol 28 mg/dl LDL Cholesterol, Calculated 48 mg/dl VLDL Cholesterol, Calculated 25 mg/dl Cholesterol/HDL Ratio 3.6 Test 02/10/17 11:15 Impression Patient is a 56 year old male with diffuse abdominal pain. Differentials considered are IBS, constipation, narcotic bowel. The pt's reported blood in stool yesterday was likely related to hemorrhoids. He has not had a significant drop in his Hb, thus this does not represent a significant GI bleed. Plan 1. Agree with dicyclomine, though pt tells me it is not effective. 2. May have some pain from constipation. Would add Miralax BID. Attg addendum: I interviewed and examined pt, reviewed chart and labs. Pt with persistent abd discomfort, neg recent w/u. Cont Dicylcomine, can consider w/u for osbcure causes of pain (porphyria, mesenteric dopplers).
[2017-02-10] MEDS ORDERED: POLYETHYLENE (MIRALAX) 17 GM PACK PO ONE (15:15)
--- NOTE | 2017-02-10 15:26 | Progress Note ---
Internal Med Progress Note Date of Service: Feb 10, 2017. Provider Documentation: SUBJECTIVE: Patient seen at bedside. Throughout the day patient has been asking for narcotic pain medications. Initially it was for symptoms described as chest pain with pain radiating down the left arm. Then the concern was more of the anterior abdomen. Patient has had cardiac and gastrointestinal workup that did not find evidence for heart attack or GI bleed. OBJECTIVE: Exam: General- no acute distress, resting on bed Eyes- EOMI ENT- no epistaxis Neck- no JVD Lungs- clear to auscultation bilaterally Heart- regular rate Abdomen- soft, no guarding, + bowel sounds Extremities- no edema Neuro- no focal necrological deficits ASSESSMENT & PLAN: Pt is 56 y/o M with PMH HTN, GERD, OA, Hx avascular necrosis, GI bleed presented to ER with chest pain radiating to left arm, abdominal pain, and blood in bowel movement. During this hospital stay, patient was monitored on telemetry. Troponins negative x 3. Echocardiogram performed: * There is mild concentric left ventricular hypertrophy. * No regional wall motion abnormalities noted. * Ejection Fraction = 55-60%. * The right ventricle is normal in size and function. * The left atrium is mildly dilated. * Diastolic dysfunction, Grade II (pseudonormalization pattern). * There is trace mitral regurgitation. * Doppler findings do not suggest pulmonary hypertension. Procedure Details * A complete two-dimensional transthoracic echocardiogram was performed (2D, M-mode, Doppler and color flow Doppler). Left Ventricle * The left ventricle is normal in size. * There is mild concentric left ventricular hypertrophy. * Ejection Fraction = 55-60%. * Left ventricular systolic function is normal. * The left ventricular wall motion is normal. * No regional wall motion abnormalities noted. Right Ventricle * The right ventricle is normal in size and function. Atria * The left atrium is mildly dilated. * Right atrial size is normal. * There is no evidence of atrial septal defect, but resolution does not allow assessment for a patent foramen ovale. Mitral Valve * The mitral valve is normal. * There is no mitral valve stenosis. * There is trace mitral regurgitation. Tricuspid Valve * The tricuspid valve is normal. * There is no tricuspid stenosis. * Significant tricuspid regurgitation is absent. * Doppler findings do not suggest pulmonary hypertension. Aortic Valve * The aortic valve is trileaflet. * Aortic stenosis is absent. * There is no significant aortic regurgitation. Pulmonic Valve * The pulmonary valve is inadequately visualized, but the Doppler data is adequate for interpretation. * Pulmonic stenosis is absent. * Mild pulmonic valvular regurgitation. Great Vessels * The aortic root and proximal ascending aorta are normal sized. Pericardium/Pleural * There is no pericardial effusion. Great Vessels * Normal inferior vena cava diameter and respiratory variation suggests normal central venous pressure. Left Ventricular Diastolic Function * Diastolic dysfunction, Grade II (pseudonormalization pattern). Patient was evaluated by cardiology service. There is no supporting evidence for acute coronary syndrome based on labs and telemetry and EKG and echocardiogram results KUB CLINICAL HISTORY: Generalized abdominal pain. FINDINGS: 2 AP supine abdominal radiographs are correlated with abdominal CT dated 01/17/2017. Cholecystectomy clips are identified in the right upper quadrant. There is a nonobstructed abdominal bowel gas pattern. Prostatic calcifications are identified in the pelvis. There is no radiographic evidence of nephrolithiasis. No evidence of intraperitoneal free air is seen on these supine views. The bony structures appear intact. IMPRESSION: Nonobstructed abdominal bowel gas pattern. Patient was also evaluated by gastroenterology service. "Differentials considered are IBS, constipation, narcotic bowel. The pt's reported blood in stool yesterday was likely related to hemorrhoids. He has not had a significant drop in his Hb, thus this does not represent a significant GI bleed." Patient prefers to follow up as outpatient with his [place] affiliated primary care doctor for the above gastroenterology differentials As per recommendations of the gastroenterology attending: "Pt with persistent abd discomfort, neg recent w/u. Cont Dicylcomine, can consider w/u for obscure causes of pain (porphyria, mesenteric dopplers)" These above gastroenterology differentials can be investigated by the patient's clinic physician Disposition: patient discharged to home with expectation of following up with his [place] affiliated primary acre doctor. Patient was asked to return to the emergency room if pain symptoms worsen Vital Signs: Date Time Temp Pulse Resp B/P (MAP) Pulse Ox O2 Delivery O2 Flow Rate FiO2 02/10/17 15:41 36.6 61 18 142/77 (98) 98 Room Air 02/10/17 14:31 36.7 64 20 99 02/10/17 12:19 99 Room Air 02/10/17 10:54 36.7 64 20 130/80 (97) 99 Room Air 02/10/17 08:00 Room Air 02/10/17 07:23 36.6 52 20 104/66 (79) 95 Room Air 02/10/17 06:41 110/72 (85) 02/10/17 04:19 36.5 54 16 85/52 (63) 96 Room Air 02/10/17 04:00 Room Air 02/10/17 00:00 Room Air 02/09/17 23:49 36.6 65 17 93/51 (65) 96 Room Air 02/09/17 20:00 36.8 55 16 130/77 97 Room Air 02/09/17 19:42 72 15 120/58 97 Room Air 02/09/17 17:45 66 113/60 95 Room Air 02/09/17 17:42 75 109/69 95 Room Air 02/09/17 17:40 69 16 118/72 96 Room Air 02/09/17 17:29 60 02/09/17 16:15 37.1 69 18 111/65 95 Room Air Lab Results: Results Past 24 Hours Test 02/09/17 17:00 02/09/17 17:15 02/09/17 22:52 02/10/17 05:14 Range/Units Urine Color YELLOW Urine Appearance CLEAR CLEAR Urine pH 5.5 4.5-7.5 Urine Specific [place] 1.021 1.000-1.030 Urine Protein NEG NEG Urine Glucose (UA) NEG NEG Urine Ketones NEG NEG Urine Occult Blood NEG NEG Urine Nitrite NEG NEG Urine Bilirubin NEG NEG Urine Urobilinogen NEG NEG Urine Leukocyte Esterase TRACE NEG Urine WBC (Auto) 1-5 0-5 /hpf Urine RBC (Auto) 0-4 0-4 /hpf Urine Hyaline Casts (Auto) 1-5 0-5 /lpf Urine Epithelial Cells (Auto) 5-10 0-5 /lpf Urine Bacteria (Auto) NEG NEG White Blood Count 7.17 5.65 4.8-10.8 K/uL Red Blood Count 4.65 4.19 4.7-6.1 M/uL Hemoglobin 14.2 12.3 14.0-18.0 g/dL Hematocrit 40.6 37.1 42-52 % Mean Corpuscular Volume 87.3 88.5 80-100 fL Mean Corpuscular Hemoglobin 30.5 29.4 25-34 pg Mean Corpuscular Hemoglobin Concent 35.0 33.2 32-36 g/dl Platelet Count 230 201 130-400 K/uL Mean Platelet Volume 9.7 9.6 7.4-10.4 fL Neutrophils (%) (Auto) 70.2 % Lymphocytes (%) (Auto) 19.7 % Monocytes (%) (Auto) 7.9 % Eosinophils (%) (Auto) 1.8 % Basophils (%) (Auto) 0.3 % Neutrophils # (Auto) 5.03 1.4-6.5 K/uL Lymphocytes # (Auto) 1.41 1.2-3.4 K/uL Monocytes # (Auto) 0.57 0.11-0.59 K/uL Eosinophils # (Auto) 0.13 0-0.5 K/uL Basophils # (Auto) 0.02 0-0.2 K/uL RDW Standard Deviation 40.3 40.5 36.4-46.3 fL RDW Coefficient of Variation 12.5 12.7 11.5-14.5 % Immature Granulocyte % (Auto) 0.1 % Immature Granulocyte # (Auto) 0.01 0.00-0.02 K/uL Sodium Level 137 142 136-145 mmol/L Potassium Level 3.9 3.8 3.5-5.1 mmol/L Chloride Level 105 107 98-107 mmol/L Carbon Dioxide Level 26 29 21-32 mmol/L Anion Gap 6.0 6.0 3-11 mmol/L Blood Urea Nitrogen 14 15 7-18 mg/dl Creatinine 1.03 1.10 0.60-1.40 mg/dl Est Creatinine Clear Calc Drug Dose 98.2 92.0 ml/min Estimated GFR () 94.3 87.1 Estimated GFR (Non- 81.4 75.2 BUN/Creatinine Ratio 13.1 13.5 10-20 Random Glucose 84 84 70-99 mg/dl Calcium Level 8.8 8.0 8.5-10.1 mg/dl Total Bilirubin 0.4 0.2 0.2-1 mg/dl Direct Bilirubin < 0.1 0-0.2 mg/dl Aspartate Amino Transf (AST/SGOT) 13 9 15-37 U/L Alanine Aminotransferase (ALT/SGPT) 32 26 12-78 U/L Alkaline Phosphatase 65 54 45-117 U/L Troponin I < 0.015 < 0.015 < 0.015 0-0.045 ng/ml Total Protein 7.5 5.9 6.4-8.2 gm/dl Albumin 4.0 3.2 3.4-5.0 gm/dl Lipase 89 73-393 U/L Total Creatine Kinase 41 30 39-308 U/L Creatine Kinase MB 0.6 0.7 0.5-3.6 ng/ml Creatine Kinase MB Ratio 1.5 2.3 0-3.0 Globulin 2.7 2.5-4.0 gm/dl Albumin/Globulin Ratio 1.2 0.9-2 Triglycerides Level 124 0-150 mg/dl Cholesterol Level 101 0-200 mg/dl HDL Cholesterol 28 mg/dl LDL Cholesterol, Calculated 48 mg/dl VLDL Cholesterol, Calculated 25 mg/dl Cholesterol/HDL Ratio 3.6 Test 02/10/17 13:02 Range/Units White Blood Count 5.47 4.8-10.8 K/uL Red Blood Count 4.39 4.7-6.1 M/uL Hemoglobin 13.1 14.0-18.0 g/dL Hematocrit 38.6 42-52 % Mean Corpuscular Volume 87.9 80-100 fL Mean Corpuscular Hemoglobin 29.8 25-34 pg Mean Corpuscular Hemoglobin Concent 33.9 32-36 g/dl Platelet Count 184 130-400 K/uL Mean Platelet Volume 9.4 7.4-10.4 fL Neutrophils (%) (Auto) 63.7 % Lymphocytes (%) (Auto) 26.7 % Monocytes (%) (Auto) 6.4 % Eosinophils (%) (Auto) 2.6 % Basophils (%) (Auto) 0.4 % Neutrophils # (Auto) 3.49 1.4-6.5 K/uL Lymphocytes # (Auto) 1.46 1.2-3.4 K/uL Monocytes # (Auto) 0.35 0.11-0.59 K/uL Eosinophils # (Auto) 0.14 0-0.5 K/uL Basophils # (Auto) 0.02 0-0.2 K/uL RDW Standard Deviation 40.5 36.4-46.3 fL RDW Coefficient of Variation 12.6 11.5-14.5 % Immature Granulocyte % (Auto) 0.2 % Immature Granulocyte # (Auto) 0.01 0.00-0.02 K/uL Amylase Level 33 25-115 U/L Microbiology Results 02/10/17 Shiga Toxin Test, Christophe Batch Pending 02/10/17 Stool Culture, Christophe Batch Pending
[2017-02-10] MEDS ORDERED: MRLP17 PO (15:43)
--- NOTE | 2017-02-10 15:45 | Discharge Instructions ---
Discharge Instructions Date of Service Feb 10, 2017. Admission Reason for Admission: Abdominal Pain, Chest Pain Discharge Discharge Diagnosis / Problem: atypical noncardiac chest pain, abdominal pain Discharge Goals Goal(s): Decrease discomfort Activity Recommendations Activity Limitations: per Instructions/Follow-up section Lifting Limitations: until after follow-up appointment Exercise/Sports Limitations: until after follow-up appointment Shower/Bathe: no limitations . Instructions / Follow-Up Instructions / Follow-Up Pt is 56 y/o M with PMH HTN, GERD, OA, Hx avascular necrosis, GI bleed presented to ER with chest pain radiating to left arm, abdominal pain, and blood in bowel movement. During this hospital stay, patient was monitored on telemetry. Troponins negative x 3. Echocardiogram performed: * There is mild concentric left ventricular hypertrophy. * No regional wall motion abnormalities noted. * Ejection Fraction = 55-60%. * The right ventricle is normal in size and function. * The left atrium is mildly dilated. * Diastolic dysfunction, Grade II (pseudonormalization pattern). * There is trace mitral regurgitation. * Doppler findings do not suggest pulmonary hypertension. Procedure Details * A complete two-dimensional transthoracic echocardiogram was performed (2D, M-mode, Doppler and color flow Doppler). Left Ventricle * The left ventricle is normal in size. * There is mild concentric left ventricular hypertrophy. * Ejection Fraction = 55-60%. * Left ventricular systolic function is normal. * The left ventricular wall motion is normal. * No regional wall motion abnormalities noted. Right Ventricle * The right ventricle is normal in size and function. Atria * The left atrium is mildly dilated. * Right atrial size is normal. * There is no evidence of atrial septal defect, but resolution does not allow assessment for a patent foramen ovale. Mitral Valve * The mitral valve is normal. * There is no mitral valve stenosis. * There is trace mitral regurgitation. Tricuspid Valve * The tricuspid valve is normal. * There is no tricuspid stenosis. * Significant tricuspid regurgitation is absent. * Doppler findings do not suggest pulmonary hypertension. Aortic Valve * The aortic valve is trileaflet. * Aortic stenosis is absent. * There is no significant aortic regurgitation. Pulmonic Valve * The pulmonary valve is inadequately visualized, but the Doppler data is adequate for interpretation. * Pulmonic stenosis is absent. * Mild pulmonic valvular regurgitation. Great Vessels * The aortic root and proximal ascending aorta are normal sized. Pericardium/Pleural * There is no pericardial effusion. Great Vessels * Normal inferior vena cava diameter and respiratory variation suggests normal central venous pressure. Left Ventricular Diastolic Function * Diastolic dysfunction, Grade II (pseudonormalization pattern). Patient was evaluated by cardiology service. There is no supporting evidence for acute coronary syndrome based on labs and telemetry and EKG and echocardiogram results KUB CLINICAL HISTORY: Generalized abdominal pain. FINDINGS: 2 AP supine abdominal radiographs are correlated with abdominal CT dated 01/17/2017. Cholecystectomy clips are identified in the right upper quadrant. There is a nonobstructed abdominal bowel gas pattern. Prostatic calcifications are identified in the pelvis. There is no radiographic evidence of nephrolithiasis. No evidence of intraperitoneal free air is seen on these supine views. The bony structures appear intact. IMPRESSION: Nonobstructed abdominal bowel gas pattern. Patient was also evaluated by gastroenterology service. "Differentials considered are IBS, constipation, narcotic bowel. The pt's reported blood in stool yesterday was likely related to hemorrhoids. He has not had a significant drop in his Hb, thus this does not represent a significant GI bleed." Patient prefers to follow up as outpatient with his [place] affiliated primary care doctor for the above gastroenterology differentials As per recommendations of the gastroenterology attending: "Pt with persistent abd discomfort, neg recent w/u. Cont Dicylcomine, can consider w/u for obscure causes of pain (porphyria, mesenteric dopplers)" These above gastroenterology differentials can be investigated by the patient's clinic physician Disposition: patient discharged to home with expectation of following up with his [place] affiliated primary acre doctor. Patient was asked to return to the emergency room if pain symptoms worsen Current Hospital Diet Patient's current hospital diet: Clear Liquid Diet Discharge Diet Recommended Diet: Regular Diet Pending Studies Studies pending at discharge: no Laboratory Results 02/10/17 13:02 Red Blood Count 4.39, Mean Corpuscular Volume 87.9, Mean Corpuscular Hemoglobin 29.8, Mean Corpuscular Hemoglobin Concent 33.9, Mean Platelet Volume 9.4, Neutrophils (%) (Auto) 63.7, Lymphocytes (%) (Auto) 26.7, Monocytes (%) (Auto) 6.4, Eosinophils (%) (Auto) 2.6, Basophils (%) (Auto) 0.4, Neutrophils # (Auto) 3.49, Lymphocytes # (Auto) 1.46, Monocytes # (Auto) 0.35, Eosinophils # (Auto) 0.14, Basophils # (Auto) 0.02 02/10/17 05:14 Test 02/09/17 17:00 02/09/17 17:15 02/10/17 05:14 02/10/17 13:02 Urine Color YELLOW Urine Appearance CLEAR (CLEAR) Urine pH 5.5 (4.5-7.5) Urine Specific [place] 1.021 (1.000-1.030) Urine Protein NEG (NEG) Urine Glucose (UA) NEG (NEG) Urine Ketones NEG (NEG) Urine Occult Blood NEG (NEG) Urine Nitrite NEG (NEG) Urine Bilirubin NEG (NEG) Urine Urobilinogen NEG (NEG) Urine Leukocyte Esterase TRACE (NEG) Urine WBC (Auto) 1-5 /hpf (0-5) Urine RBC (Auto) 0-4 /hpf (0-4) Urine Hyaline Casts (Auto) 1-5 /lpf (0-5) Urine Epithelial Cells (Auto) 5-10 /lpf (0-5) Urine Bacteria (Auto) NEG (NEG) Direct Bilirubin < 0.1 mg/dl (0-0.2) Lipase 89 U/L (73-393) Anion Gap 6.0 mmol/L (3-11) Est Creatinine Clear Calc Drug Dose 92.0 ml/min Estimated GFR () 87.1 Estimated GFR (Non- 75.2 BUN/Creatinine Ratio 13.5 (10-20) Calcium Level 8.0 mg/dl (8.5-10.1) Total Bilirubin 0.2 mg/dl (0.2-1) Aspartate Amino Transf (AST/SGOT) 9 U/L (15-37) Alanine Aminotransferase (ALT/SGPT) 26 U/L (12-78) Alkaline Phosphatase 54 U/L (45-117) Total Creatine Kinase 30 U/L (39-308) Creatine Kinase MB 0.7 ng/ml (0.5-3.6) Creatine Kinase MB Ratio 2.3 (0-3.0) Troponin I < 0.015 ng/ml (0-0.045) Total Protein 5.9 gm/dl (6.4-8.2) Albumin 3.2 gm/dl (3.4-5.0) Globulin 2.7 gm/dl (2.5-4.0) Albumin/Globulin Ratio 1.2 (0.9-2) Triglycerides Level 124 mg/dl (0-150) Cholesterol Level 101 mg/dl (0-200) HDL Cholesterol 28 mg/dl LDL Cholesterol, Calculated 48 mg/dl VLDL Cholesterol, Calculated 25 mg/dl Cholesterol/HDL Ratio 3.6 White Blood Count 5.47 K/uL (4.8-10.8) Red Blood Count 4.39 M/uL (4.7-6.1) Hemoglobin 13.1 g/dL (14.0-18.0) Hematocrit 38.6 % (42-52) Mean Corpuscular Volume 87.9 fL (80-100) Mean Corpuscular Hemoglobin 29.8 pg (25-34) Mean Corpuscular Hemoglobin Concent 33.9 g/dl (32-36) Platelet Count 184 K/uL (130-400) Mean Platelet Volume 9.4 fL (7.4-10.4) Neutrophils (%) (Auto) 63.7 % Lymphocytes (%) (Auto) 26.7 % Monocytes (%) (Auto) 6.4 % Eosinophils (%) (Auto) 2.6 % Basophils (%) (Auto) 0.4 % Neutrophils # (Auto) 3.49 K/uL (1.4-6.5) Lymphocytes # (Auto) 1.46 K/uL (1.2-3.4) Monocytes # (Auto) 0.35 K/uL (0.11-0.59) Eosinophils # (Auto) 0.14 K/uL (0-0.5) Basophils # (Auto) 0.02 K/uL (0-0.2) RDW Standard Deviation 40.5 fL (36.4-46.3) RDW Coefficient of Variation 12.6 % (11.5-14.5) Immature Granulocyte % (Auto) 0.2 % Immature Granulocyte # (Auto) 0.01 K/uL (0.00-0.02) Amylase Level 33 U/L (25-115) Date/Time Source Procedure Growth Status 02/10/17 12:17 Stool Shiga Toxin Test Pending [facility] Batch 02/10/17 12:17 Stool Stool Culture Pending [facility] Batch Lipid Panel Test 11/28/17 05:14 Range/Units Triglycerides Level 124 0-150 mg/dl Cholesterol Level 101 0-200 mg/dl HDL Cholesterol 28 mg/dl Cholesterol/HDL Ratio 3.6 LDL Cholesterol, Calculated 48 mg/dl Medical Emergencies . Who to Call and When: Medical Emergencies: If at any time you feel your situation is an emergency, please call 911 immediately. . Non-Emergent Contact Non-Emergency issues call your: Primary Care Provider . . "Provider Documentation" section prepared by Hugh Ac. . VTE Core Measure Inpt VTE Proph given/why not?: SCD's
--- NOTE | 2017-02-10 15:46 | Discharge Summary ---
Discharge Summary Date of Service Feb 10, 2017. Discharge Summary Admission Date: Feb 09, 2017 at 19:05 Discharge Date: Feb 10, 2017 Discharge Disposition: Home Principal Diagnosis: atypical noncardiac chest pain, abdominal pain Medication Reconciliation New Medications: Polyethylene (Miralax) 17 Gm Pow 17 GM PO BID for 30 Days, #1 CAN 1 Refill Continued Medications: Atenolol (Tenormin) 25 Mg Tab 25 MG PO DAILY, TAB Dicyclomine HCl (Dicyclomine HCl) 10 Mg Cap 10 MG PO BID PRN for cramping for 3 Days, #6 CAP Lisinopril (Zestril) 20 Mg Tab 20 MG PO DAILY, TAB Omeprazole (Prilosec) 20 Mg Capcr 40 MG PO DAILY, CAP Oxycodone Ir (Roxicodone Ir) 5 Mg Tab 5 MG PO Q6 PRN for Severe Pain, TAB Admission Information HPI (per Admitting provider): Pt is 56 y/o M with PMH HTN, GERD, OA, Hx avascular necrosis, GI bleed presented to ER with c/o CP and abdominal pain. Pt reports past 2 days with upper and lower abdominal pain and yesterday with dark red bleeding per rectum and dark red blood noted in BM's and reports BM was almost black color. Reports 2 bloody BMs yesterday and one today this morning, no bleeding per rectum noted since. Denies vomiting but c/o nausea. States this morning started having mid and left sided pressure and crushing pain that radiates to L arm. [place] a little lightheaded this morning with got up. [place] like noticed some swelling to ankles once or twice a week after prolonged standing, resolves with elevation legs/ feet. Denies CP currently but does c/o epigastric discomfort and abdominal discomfort. Hx GI bleed admitted on 01/17/17. EGD: 01/19/17 - hiatal hernia. Colonoscopy: 01/20/17 - internal hemorrhoids, diverticulosis. 01/17/17: CT abd/ pelvis: no diverticulitis or bowel obstruction. Pt states since d/c he was doing well and not having abdominal pain or rectal bleeding until yesterday. Denies using NSAIDs. Denies fever/chills, diaphoresis, SULTANA, syncope, vision changes, neck pain, SOB, orthopnea, palpitations, cough, sore throat, choking, otalgia, rhinorrhea, paresthesias, weakness, rashes, urinary symptoms. Reports hx stress test couple years ago which he reports was normal. Reports follows with [facility] - follows with [facility] negative troponin. Given ASA, Zofran, GI cocktail without relief. Given nitro and morphine with moderate relief. Vitals stable. H&H stable. Physical Exam (per Admitting): General Appearance: no apparent distress, + obese Head: normocephalic, atraumatic Eyes: normal inspection, PERRL, EOMI, sclerae normal ENT: hearing grossly normal, pharynx normal, + pertinent finding (moist mucous membranes) Neck: supple, no JVD, trachea midline Respiratory/Chest: chest non-tender, lungs clear, normal breath sounds, no respiratory distress, no accessory muscle use Cardiovascular: regular rate, rhythm, no edema, no murmur, normal peripheral pulses Abdomen/GI: normal bowel sounds, soft, + pertinent finding (tenderness to epigastric, LLQ without guarding or rebound) Extremities/Musculoskelatal: normal inspection, normal capillary refill, no pedal edema, non-tender 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: alert, normal mood/affect, oriented x 3 Skin: normal color, warm/dry, no rash Hospital Course Pt is 56 y/o M with PMH HTN, GERD, OA, Hx avascular necrosis, GI bleed presented to ER with chest pain radiating to left arm, abdominal pain, and blood in bowel movement. During this hospital stay, patient was monitored on telemetry. Troponins negative x 3. Echocardiogram performed: * There is mild concentric left ventricular hypertrophy. * No regional wall motion abnormalities noted. * Ejection Fraction = 55-60%. * The right ventricle is normal in size and function. * The left atrium is mildly dilated. * Diastolic dysfunction, Grade II (pseudonormalization pattern). * There is trace mitral regurgitation. * Doppler findings do not suggest pulmonary hypertension. Procedure Details * A complete two-dimensional transthoracic echocardiogram was performed (2D, M-mode, Doppler and color flow Doppler). Left Ventricle * The left ventricle is normal in size. * There is mild concentric left ventricular hypertrophy. * Ejection Fraction = 55-60%. * Left ventricular systolic function is normal. * The left ventricular wall motion is normal. * No regional wall motion abnormalities noted. Right Ventricle * The right ventricle is normal in size and function. Atria * The left atrium is mildly dilated. * Right atrial size is normal. * There is no evidence of atrial septal defect, but resolution does not allow assessment for a patent foramen ovale. Mitral Valve * The mitral valve is normal. * There is no mitral valve stenosis. * There is trace mitral regurgitation. Tricuspid Valve * The tricuspid valve is normal. * There is no tricuspid stenosis. * Significant tricuspid regurgitation is absent. * Doppler findings do not suggest pulmonary hypertension. Aortic Valve * The aortic valve is trileaflet. * Aortic stenosis is absent. * There is no significant aortic regurgitation. Pulmonic Valve * The pulmonary valve is inadequately visualized, but the Doppler data is adequate for interpretation. * Pulmonic stenosis is absent. * Mild pulmonic valvular regurgitation. Great Vessels * The aortic root and proximal ascending aorta are normal sized. Pericardium/Pleural * There is no pericardial effusion. Great Vessels * Normal inferior vena cava diameter and respiratory variation suggests normal central venous pressure. Left Ventricular Diastolic Function * Diastolic dysfunction, Grade II (pseudonormalization pattern). Patient was evaluated by cardiology service. There is no supporting evidence for acute coronary syndrome based on labs and telemetry and EKG and echocardiogram results KUB CLINICAL HISTORY: Generalized abdominal pain. FINDINGS: 2 AP supine abdominal radiographs are correlated with abdominal CT dated 01/17/2017. Cholecystectomy clips are identified in the right upper quadrant. There is a nonobstructed abdominal bowel gas pattern. Prostatic calcifications are identified in the pelvis. There is no radiographic evidence of nephrolithiasis. No evidence of intraperitoneal free air is seen on these supine views. The bony structures appear intact. IMPRESSION: Nonobstructed abdominal bowel gas pattern. Patient was also evaluated by gastroenterology service. "Differentials considered are IBS, constipation, narcotic bowel. The pt's reported blood in stool yesterday was likely related to hemorrhoids. He has not had a significant drop in his Hb, thus this does not represent a significant GI bleed." Patient prefers to follow up as outpatient with his [facility] affiliated primary care doctor for the above gastroenterology differentials As per recommendations of the gastroenterology attending: "Pt with persistent abd discomfort, neg recent w/u. Cont Dicylcomine, can consider w/u for obscure causes of pain (porphyria, mesenteric dopplers)" These above gastroenterology differentials can be investigated by the patient's clinic physician Disposition: patient discharged to home with expectation of following up with [facility]. Patient was asked to return to the emergency room if pain symptoms worsen Total time spent on discharge = 60 minutes This includes examination of the patient, discharge planning, medication reconciliation, and communication with other providers. Discharge Instructions see above
[2017-02-10] MEDS ORDERED: POLYETHYLENE (MIRALAX) 17 GM PACK PO SCH (21:00)
== END 2017-02-10 16:52 | disposition home or self-care (01) ==
LOC: C.EDB 16:11 → C.2T 19:05 → ENRESERV 19:13
PROVIDERS: ADMIT Internal Medicine; ATTEND Hospitalist
DX: R07.89 Other chest pain (principal); R10.84 Generalized abdominal pain; I10 Essential (primary) hypertension; K21.9 Gastro-esophageal reflux disease without esophagitis; M19.90 Unspecified osteoarthritis, unspecified site; Z90.49 Acquired absence of other specified parts of digestive tract; Z96.653 Presence of artificial knee joint, bilateral; Z79.899 Other long term (current) drug therapy

== ENCOUNTER 2017-05-09 22:44 | Inpatient (IN) | payer OTHER ==
[~2017-05-09] VITALS: Ht 177.8 cm; Wt 105.0 kg
[~2017-05-09 22:44] MED LIST changes: +MRLP17 PO
[2017-05-09] MEDS ORDERED: ONDANSETRON INJ 2 MG/ML 2 ML VIAL IV STA (23:24)
[2017-05-09] MEDS ORDERED: SODIUM CHLORIDE 0.9% 1000ML 1,000 ML IV STA (23:24)
[2017-05-09] MEDS ORDERED: PANTOprazole INJ 40 MG in SYRINGE 0 ML IV ONE (23:30)
[2017-05-09] MEDS ORDERED: FENTANYL CITRATE INJ 50 MCG/1 ML 2 ML VIAL IV ONE (23:30)
--- NOTE | 2017-05-09 23:39 | EMERGENCY ROOM VISIT NOTE ---
History Report prepared by Letty: Ana Lilia Gutierrez Under the Supervision of: Pastora CoyneO. First contact with patient: 23:15 Chief Complaint: RECTAL BLEEDING Stated Complaint: RECTAL BLEEDING,THROWING UP BLOOD,STOMACH PAIN History of Present Illness The patient is a 56 year old male who presents to the Emergency Room with complaints of rectal bleeding beginning at 0700 this morning. He reports he had nausea and hematemesis beginning at 0700 this morning. At the same time, he had a bowel movement that had blood and melena. His abdominal pain started at 1600 today. He has abdominal pain and rates it a 10/10. He notes he has had an episode like this 6 months ago and he had rectal hemorrhoids and polyps, He also reports he drinks a lot of soda. Pt denies headache, change in vision, fevers, chest pain, shortness of breath, diarrhea, and pain with urination. 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 A total of 10 systems reviewed and were otherwise negative. Past Medical & Surgical Medical Problems: (1) Abdominal pain (2) Chest pain (3) GERD (gastroesophageal reflux disease) (4) HTN (hypertension) (5) Osteoarthritis (6) Rectal bleeding (7) Rectal bleeding (8) UGIB (upper gastrointestinal bleed) Surgical Problems: (1) History of bilateral knee replacement (2) History of tonsillectomy and adenoidectomy (3) Hx of appendectomy (4) Hx of cholecystectomy (5) Hx of vasectomy Family History Diabetes mellitus FATHER FH: CAD (coronary artery disease) FATHER FH: COPD (chronic obstructive pulmonary disease) MOTHER FH: cancer MOTHER (pancreatitic CA) Social History Smoking Status: Never Smoker Alcohol Use: none Drug Use: none Marital Status: other Housing Status: lives with significant other Occupation Status: employed Current/Historical Medications Scheduled Atenolol (Tenormin), 25 MG PO DAILY Lisinopril (Zestril), 20 MG PO DAILY Omeprazole (Prilosec), 40 MG PO DAILY Scheduled PRN Oxycodone Ir (Roxicodone Ir), 5 MG PO Q6 PRN for Severe Pain Allergies Coded Allergies: Ketorolac Tromethamine (Verified Allergy, Unknown, SHORTNESS OF BREATH, RASH, 05/09/17) Physical Exam Vital Signs Date Time Temp Pulse Resp B/P (MAP) Pulse Ox O2 Delivery O2 Flow Rate FiO2 05/10/17 03:14 70 18 121/70 99 Room Air 05/10/17 01:22 72 18 134/77 99 Room Air 05/09/17 22:54 36.9 95 20 158/88 97 Room Air Physical Exam GENERAL: alert, uncomfortable appearing, well nourished, no distress, non-toxic EYE EXAM: normal conjunctiva, PERRL and EOM's grossly intact OROPHARYNX: no exudate, no erythema, lips, buccal mucosa, and tongue normal and mucous membranes are moist NECK: supple, no nuchal rigidity, no adenopathy, non-tender LUNGS: Clear to auscultation. Normal chest wall mechanics HEART: no murmurs, S1 normal and S2 normal ABDOMEN: abdomen soft, generalized abdomen discomfort, normo-active bowel sounds , no masses, no rebound or guarding. Rectal : no hemorrhoids or anal fissure, no stool in the rectal vault, mucus guaiac positive BACK: Back is symmetrical on inspection and there is no deformity, no midline tenderness, no CVA tenderness. SKIN: no rashes and no bruising UPPER EXTREMITIES: upper extremities are grossly normal. LOWER EXTREMITIES: No pitting edema. NEURO EXAM: Normal sensorium, cranial nerves II-XII [grossly] intact, normal speech, no [gross] weakness of arms, no [gross] weakness of legs. [No drift. Finger to nose intact. Gross sensation intact.] Medical Decision & Procedures ER Provider Diagnostic Interpretation: Radiology results have been interpreted by the radiologist and reviewed by me. CT ANGIOGRAM OF THE ABDOMEN AND PELVIS CLINICAL HISTORY: Generalized abdominal pain. GI bleeding. COMPARISON STUDY: Abdominal CT dated 01/17/2017. TECHNIQUE: Following the IV administration of 93 cc of Optiray 320, CT angiogram of the abdomen and pelvis was performed from the lung bases the proximal femora. Images are reviewed in the axial, sagittal, and coronal planes. 3-D MIPS images are created and assessed. IV contrast was administered without complication. A dose lowering technique was utilized adhering to the principles of ALARA. CT DOSE: 1483.19 mGy.cm FINDINGS: Lower chest: The heart is normal in size and without pericardial effusion. The lung bases are clear. There is a tiny hiatal hernia. Liver: The contrast-enhanced liver is normal in size, contour, and attenuation. There is no intrahepatic or ductal dilatation. The main portal veins appear patent. Gallbladder: Surgically absent noting clips in the gallbladder fossa. Spleen: The spleen is mildly enlarged, measuring 14 cm in length. The spleen demonstrates heterogeneous arterial phase enhancement. Pancreas: Unremarkable. Adrenal glands: Unremarkable. Kidneys: The contrast enhanced kidneys are normal in size and without hydronephrosis. The kidneys enhance symmetrically. There is a circumaortic left renal vein. Abdominal aorta and iliac arteries: The abdominal aorta is normal in course and caliber. The iliac arteries are widely patent bilaterally. Major branches of the abdominal aorta: The celiac trunk, superior mesenteric, and inferior mesenteric arteries are widely patent. There is a replaced right hepatic artery which arises from the superior mesenteric artery. There are 2 left renal arteries and a single right renal artery. The renal arteries are widely patent. Bowel: There is mild colonic diverticulosis without CT evidence of acute diverticulitis. No bowel obstruction is seen. The appendix is not identified and reported surgically absent. Peritoneum: There is no intraperitoneal free air or abdominal ascites. There is a small fat-containing umbilical hernia. Lymphadenopathy: None. Pelvic viscera: The bladder, prostate, and seminal vesicles are normal as visualized. Skeletal structures: No destructive bony lesions are seen. There is evidence of avascular necrosis involving the right femur. IMPRESSION: 1. Unremarkable CT angiogram of the abdomen and pelvis. 2. There are no acute infectious or inflammatory findings in the abdomen or pelvis. 3. Mild colonic diverticulosis without CT evidence of acute diverticulitis. 4. Mild splenomegaly. 5. There is avascular necrosis of the right femoral head. 6. Additional findings as above. Electronically signed by: Sedrick Francis M.D. 05/10/2017 12:33 AM Dictated Date/Time: 05/10/2017 12:25 AM Laboratory Results Test 05/09/17 23:30 RDW Standard Deviation 39.4 fL (36.4-46.3) RDW Coefficient of Variation 12.8 % (11.5-14.5) White Blood Count 7.63 K/uL (4.8-10.8) Red Blood Count 4.89 M/uL (4.7-6.1) Hemoglobin 14.3 g/dL (14.0-18.0) Hematocrit 41.5 % (42-52) Mean Corpuscular Volume 84.9 fL (80-100) Mean Corpuscular Hemoglobin 29.2 pg (25-34) Mean Corpuscular Hemoglobin Concent 34.5 g/dl (32-36) Platelet Count 209 K/uL (130-400) Mean Platelet Volume 9.6 fL (7.4-10.4) Neutrophils (%) (Auto) 65.2 % Lymphocytes (%) (Auto) 19.7 % Monocytes (%) (Auto) 12.1 % Eosinophils (%) (Auto) 2.2 % Basophils (%) (Auto) 0.4 % Neutrophils # (Auto) 4.98 K/uL (1.4-6.5) Lymphocytes # (Auto) 1.50 K/uL (1.2-3.4) Monocytes # (Auto) 0.92 K/uL (0.11-0.59) Eosinophils # (Auto) 0.17 K/uL (0-0.5) Basophils # (Auto) 0.03 K/uL (0-0.2) Immature Granulocyte % (Auto) 0.4 % Immature Granulocyte # (Auto) 0.03 K/uL (0.00-0.02) Prothrombin Time 10.8 SECONDS (9.0-12.0) Prothromb Time International Ratio 1.0 (0.9-1.1) Est Creatinine Clear Calc Drug Dose 106.6 ml/min Total Bilirubin 0.3 mg/dl (0.2-1) Aspartate Amino Transf (AST/SGOT) 11 U/L (15-37) Alanine Aminotransferase (ALT/SGPT) 28 U/L (12-78) Alkaline Phosphatase 73 U/L (45-117) Total Protein 7.0 gm/dl (6.4-8.2) Albumin 3.8 gm/dl (3.4-5.0) Globulin 3.2 gm/dl (2.5-4.0) Albumin/Globulin Ratio 1.2 (0.9-2) Lipase 150 U/L (73-393) Laboratory results per my review. Medications Administered Medications (Trade) Dose Ordered Sig/Hayley Route Start Time Stop Time Status Last Admin Dose Admin Sodium Chloride 1,000 ml @ 999 mls/hr Q1H1M STAT IV 05/09/17 23:24 05/10/17 00:24 DC 05/09/17 23:40 999 MLS/HR Pantoprazole Sodium 40 mg/ Syringe 10 ml @ 5 mls/min NOW ONCE IV 05/09/17 23:30 05/09/17 23:31 DC 05/09/17 23:54 5 MLS/MIN Ondansetron HCl (Zofran Inj) 4 mg NOW STAT IV 05/09/17 23:24 05/09/17 23:26 DC 05/09/17 23:40 4 MG Fentanyl Citrate (Fentanyl Inj) 50 mcg NOW ONCE IV 05/09/17 23:30 05/09/17 23:31 DC 05/09/17 23:40 50 MCG Ondansetron HCl (Zofran Inj) 4 mg NOW STAT IV 05/10/17 00:59 05/10/17 01:00 DC 05/10/17 01:20 4 MG Morphine Sulfate (MoRPHine SULFATE INJ) 4 mg NOW STAT IV 05/10/17 01:03 05/10/17 01:04 DC 05/10/17 01:21 4 MG Morphine Sulfate (MoRPHine SULFATE INJ) 4 mg NOW STAT IV 05/10/17 02:40 05/10/17 02:41 DC 05/10/17 02:47 4 MG ED Course 2318: The patient was evaluated in room C12. A complete history and physical exam was performed. Review of EMR: Patient admitted in January 2017 with GI bleed. No obvious bleeding on colonoscopy. Endoscopy with hiatal hernia, no active bleeding, no ulcers. 2324: Zofran Inj 4 mg IV Sodium Chloride 1000 mls @ 999 mls/hr 2330: Fentanyl Citrate 50 mcg IV Pantoprazole Sodium 40 mcg/Syringe 0046: I rechecked the patient at this time. 0059: Zofran Inj 4 mg, IV 0103: Morphine Sulfate 4 mg IV 0205: I reviewed the patient's case with Dr. Phillips, [facility] Hospitalist. He will evaluate the patient for further management. Medical Decision Differential diagnosis: Etiologies such as diverticulosis, AVM, coagulopathy, colitis, inflammatory bowel disease, malignancy, Natalie-Man tear, esophagitis, peptic ulcer disease , variceal bleed, gastritis, epistaxis, fissure, hemorrhoids, as well as others were entertained. Patient with concerning story and heme-negative on rectal exam here. Patient with persistent abdominal pain and given multiple doses of IV pain medication and IV nausea medication. Given persistent symptoms as well as recent history of GI bleed, discussed with hospitalist for additional evaluation and possible additional monitoring with repeat blood work. Patient with no recurrent vomiting or bloody bowel movements on the emergency department. Patient hemodynamically stable. Did not feel patient warranted emergent endoscopy at this time. Did not feel patient warranted emergent gastric lavage. Patient given IV PPI. Did not feel required ICU disposition. No other evidence of acute GI pathology to [place] patient symptoms found on CT. Lab work otherwise reassuring. Patient uses pain medication chronically due to history of right hip avascular necrosis, likely some decreased pain tolerance secondary to chronic usage. Medication Reconcilliation Current Medication List: was personally reviewed by me Blood Pressure Screening Patient's blood pressure: Elevated blood pressure Blood pressure disposition: Elevated BP felt to be situational Consults Time Called: 0202 Consulting Physician: Carmelita Marin Returned Call: [phone] I reviewed the patient's case with him. He will evaluate the patient for further management. Impression Primary Impression: GI bleed Additional Impression: Abdominal pain Scribe Attestation The scribe's documentation has been prepared under my direction and personally reviewed by me in its entirety. I confirm that the note above accurately reflects all work, treatment, procedures, and medical decision making performed by me. Departure Information Dispostion Being Evaluated By Hospitalist (Carmelita Marin Hospitalist ) Referrals No Doctor, Assigned (PCP) Patient Instructions My [facility] Problem Qualifiers Primary Impression: GI bleed GI bleed type/associated pathology: unspecified gastrointestinal hemorrhage type Qualified Codes: K92.2 - Gastrointestinal hemorrhage, unspecified Additional Impression: Abdominal pain Abdominal location: generalized Qualified Codes: R10.84 - Generalized abdominal pain
[2017-05-09 23:41] LABS: BASO % 0.4 %; BASO ABS # 0.03 K/uL (0-0.2); EOS % 2.2 %; EOS ABS # 0.17 K/uL (0-0.5); HEMATOCRIT 41.5 % (42-52); HEMOGLOBIN 14.3 g/dL (14.0-18.0); IG# 0.03 K/uL (0.00-0.02); LYMPH % 19.7 %; MEAN CELL VOLUME 84.9 fL (80-100); MEAN CORPUSCULAR HEMOGLOBIN 29.2 pg (25-34); MEAN CORPUSCULAR HGB CONC 34.5 g/dl (32-36); MEAN PLATELET VOLUME 9.6 fL (7.4-10.4); MONO % 12.1 %; MONO ABS # 0.92 K/uL (0.11-0.59); NEUT % 65.2 %; NEUT ABS # 4.98 K/uL (1.4-6.5); PLATELET COUNT 209 K/uL (130-400); RED CELL DISTRIBUTION WIDTH CV 12.8 % (11.5-14.5); RED CELL DISTRIBUTION WIDTH SD 39.4 fL (36.4-46.3); WHITE BLOOD COUNT 7.63 K/uL (4.8-10.8)
[2017-05-09] MEDS ORDERED: OPTIRAY 320 IV PRN (23:45)
[2017-05-10 00:02] LABS: ALBUMIN 3.8 gm/dl (3.4-5.0); CALCIUM 8.9 mg/dl (8.5-10.1); CREATININE 0.95 mg/dl (0.60-1.40); POTASSIUM 3.6 mmol/L (3.5-5.1)
--- NOTE | 2017-05-10 00:35 | DIAGNOSTIC IMAGING REPORT ---
CT ANGIOGRAM OF THE ABDOMEN AND PELVIS CLINICAL HISTORY: Generalized abdominal pain. GI bleeding. COMPARISON STUDY: Abdominal CT dated 01/17/2017. TECHNIQUE: Following the IV administration of 93 cc of Optiray 320, CT angiogram of the abdomen and pelvis was performed from the lung bases the proximal femora. Images are reviewed in the axial, sagittal, and coronal planes. 3-D MIPS images are created and assessed. IV contrast was administered without complication. A dose lowering technique was utilized adhering to the principles of ALARA. CT DOSE: 1483.19 mGy.cm FINDINGS: Lower chest: The heart is normal in size and without pericardial effusion. The lung bases are clear. There is a tiny hiatal hernia. Liver: The contrast-enhanced liver is normal in size, contour, and attenuation. There is no intrahepatic or ductal dilatation. The main portal veins appear patent. Gallbladder: Surgically absent noting clips in the gallbladder fossa. Spleen: The spleen is mildly enlarged, measuring 14 cm in length. The spleen demonstrates heterogeneous arterial phase enhancement. Pancreas: Unremarkable. Adrenal glands: Unremarkable. Kidneys: The contrast enhanced kidneys are normal in size and without hydronephrosis. The kidneys enhance symmetrically. There is a circumaortic left renal vein. Abdominal aorta and iliac arteries: The abdominal aorta is normal in course and caliber. The iliac arteries are widely patent bilaterally. Major branches of the abdominal aorta: The celiac trunk, superior mesenteric, and inferior mesenteric arteries are widely patent. There is a replaced right hepatic artery which arises from the superior mesenteric artery. There are 2 left renal arteries and a single right renal artery. The renal arteries are widely patent. Bowel: There is mild colonic diverticulosis without CT evidence of acute diverticulitis. No bowel obstruction is seen. The appendix is not identified and reported surgically absent. Peritoneum: There is no intraperitoneal free air or abdominal ascites. There is a small fat-containing umbilical hernia. Lymphadenopathy: None. Pelvic viscera: The bladder, prostate, and seminal vesicles are normal as visualized. Skeletal structures: No destructive bony lesions are seen. There is evidence of avascular necrosis involving the right femur. IMPRESSION: 1. Unremarkable CT angiogram of the abdomen and pelvis. 2. There are no acute infectious or inflammatory findings in the abdomen or pelvis. 3. Mild colonic diverticulosis without CT evidence of acute diverticulitis. 4. Mild splenomegaly. 5. There is avascular necrosis of the right femoral head. 6. Additional findings as above. Electronically signed by: Sedrick Francis M.D. 05/10/2017 12:33 AM Dictated Date/Time: 05/10/2017 12:25 AM
[2017-05-10] MEDS ORDERED: ONDANSETRON INJ 2 MG/ML 2 ML VIAL IV STA (00:59)
[2017-05-10] MEDS ORDERED: MoRPHine SULFATE 4 MG/ML 1 ML CARP\\VIAL IV STA ×2 (01:03→02:40)
[2017-05-10] MEDS ORDERED: POLYETHYLENE (MIRALAX) 17 GM PACK PO PRN (04:00)
[2017-05-10] MEDS ORDERED: ACETAMINOPHEN 325 MG TAB PO PRN (04:00)
[2017-05-10 04:30] VITALS: BP 163/93; PULSE 66; TEMP 36.7; O2SAT 99; Ht 177.8 cm; Wt 105.0 kg
[2017-05-10] MEDS: SODIUM CHLORIDE 0.9% 1000ML 1,000 ML IV SCH ×2 (05:06→15:03)
[2017-05-10] MEDS: OXYCODONE HCL IR 5 MG TAB (IMMEDIATE RELEASE) PO PRN ×4 (05:13→23:31)
--- NOTE | 2017-05-10 05:49 | History and Physical ---
History & Physical Date & Time of Service: May 10, 2017 at 05:36 Chief Complaint: Abdominal Pain, Gi Bleed Primary Care Physician: No Doctor, Assigned History of Present Illness Source: patient Patient is a 56 yo male who presents to the ER for complaints nausea, vomiting, and blood in the vomit and stool that began last evening around 6 PM. He states he began having abdominal pain and nausea, and when he vomited he saw black/ coffee ground appearance to his gastric contents, and also bright red blood. He states then at 9 PM he had stools that were melanotic and also with blood, and he then headed to the hospital. He states he has had similar bleeding before and a source was not identified. He reports his symptoms are similar but this time he is having more intense abdominal pain than the last admission in Jan 2017. The patient reports mild improvement of symptoms with vomiting or BM. He denies any alcohol, tobacco, illicit drug use. He denies any NSAID use. He states he is still having severe pain and nausea despite getting zofran, morphine, and fentanyl. Past Medical/Surgical History Medical Problems: (1) GERD (gastroesophageal reflux disease) (2) HTN (hypertension) (3) Osteoarthritis (4) GIB (upper gastrointestinal bleed) (5) Avascular necrosis of hip Surgical Problems: (1) History of bilateral knee replacement (2) History of tonsillectomy and adenoidectomy (3) Hx of appendectomy (4) Hx of cholecystectomy (5) Hx of vasectomy Family History Diabetes mellitus FATHER FH: CAD (coronary artery disease) FATHER FH: COPD (chronic obstructive pulmonary disease) MOTHER FH: cancer MOTHER (pancreatitic CA) Social History Smoking Status: Never Smoker Smokeless Tobacco Use: No Alcohol Use: none Drug Use: none Marital Status: other Occupational Status: employed Allergies Coded Allergies: Ketorolac Tromethamine (Verified Allergy, Unknown, SHORTNESS OF BREATH, RASH, 05/09/17) Home Medications Scheduled Atenolol (Tenormin), 25 MG PO DAILY Lisinopril (Zestril), 20 MG PO DAILY Omeprazole (Prilosec), 40 MG PO DAILY Scheduled PRN Oxycodone Ir (Roxicodone Ir), 5 MG PO Q6 PRN for Severe Pain Review of Systems Constitutional: No fever, No chills, No sweats, No weight loss Eyes: No worsening of vision, No redness, No diplopia ENT: No hearing loss, No nasal symptoms, No sore throat, No trouble swallowing Respiratory: No cough, No wheezing, No shortness of breath Cardiovascular: No chest pain, No edema, No palpitations Abdomen: + pain, + nausea, + vomiting, + GI bleeding Musculoskeletal: + joint pain, No swelling, No calf pain Genitourinary - Male: No hematuria, No dysuria, No urinary frequency, No urinary urgency Neurologic: No memory loss, No paralysis, No numbness/tingling, No vertigo Psychiatric: No depression symptoms, No anxiety, No insomnia Endocrine: No fatigue, No excessive thirst, No excessive urination Hematologic / Lymphatic: No abnormal bleeding/bruising, No clotting problems, No swollen lymph nodes Integumentary: No rash, No itch, No new/changing skin lesions Physical Exam Vital Signs Date Time Temp Pulse Resp B/P (MAP) Pulse Ox O2 Delivery O2 Flow Rate FiO2 05/10/17 04:19 78 18 131/79 98 05/10/17 03:14 70 18 121/70 99 Room Air 05/10/17 01:22 72 18 134/77 99 Room Air 05/09/17 22:54 36.9 95 20 158/88 97 Room Air General Appearance: WD/WN, no apparent distress Head: normocephalic, atraumatic Eyes: PERRL, EOMI, sclerae normal ENT: hearing grossly normal Neck: supple, no JVD, no carotid bruits, trachea midline Respiratory/Chest: chest non-tender, lungs clear, normal breath sounds, no respiratory distress, no accessory muscle use Cardiovascular: regular rate, rhythm, no edema, no gallop, no JVD, no murmur Abdomen/GI: normal bowel sounds, non tender, soft, no organomegaly Back: normal inspection, no CVA tenderness Extremities/Musculoskelatal: no calf tenderness, normal capillary refill, no pedal edema 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: no motor/sensory deficits, alert, normal mood/affect, oriented x 3 Skin: normal color, warm/dry, no rash Diagnostics Laboratory Results Results Past 24 Hours Test 05/09/17 23:30 05/10/17 05:29 Range/Units White Blood Count 7.63 4.8-10.8 K/uL Red Blood Count 4.89 4.7-6.1 M/uL Hemoglobin 14.3 14.0-18.0 g/dL Hematocrit 41.5 42-52 % Mean Corpuscular Volume 84.9 80-100 fL Mean Corpuscular Hemoglobin 29.2 25-34 pg Mean Corpuscular Hemoglobin Concent 34.5 32-36 g/dl Platelet Count 209 130-400 K/uL Mean Platelet Volume 9.6 7.4-10.4 fL Neutrophils (%) (Auto) 65.2 % Lymphocytes (%) (Auto) 19.7 % Monocytes (%) (Auto) 12.1 % Eosinophils (%) (Auto) 2.2 % Basophils (%) (Auto) 0.4 % Neutrophils # (Auto) 4.98 1.4-6.5 K/uL Lymphocytes # (Auto) 1.50 1.2-3.4 K/uL Monocytes # (Auto) 0.92 0.11-0.59 K/uL Eosinophils # (Auto) 0.17 0-0.5 K/uL Basophils # (Auto) 0.03 0-0.2 K/uL RDW Standard Deviation 39.4 36.4-46.3 fL RDW Coefficient of Variation 12.8 11.5-14.5 % Immature Granulocyte % (Auto) 0.4 % Immature Granulocyte # (Auto) 0.03 0.00-0.02 K/uL Prothrombin Time 10.8 9.0-12.0 SECONDS Prothromb Time International Ratio 1.0 0.9-1.1 Sodium Level 143 136-145 mmol/L Potassium Level 3.6 3.5-5.1 mmol/L Chloride Level 110 98-107 mmol/L Carbon Dioxide Level 26 21-32 mmol/L Anion Gap 7.0 3-11 mmol/L Blood Urea Nitrogen 13 7-18 mg/dl Creatinine 0.95 0.60-1.40 mg/dl Est Creatinine Clear Calc Drug Dose 106.6 ml/min Estimated GFR () 104.0 Estimated GFR (Non- 89.8 BUN/Creatinine Ratio 13.3 10-20 Random Glucose 101 70-99 mg/dl Calcium Level 8.9 8.5-10.1 mg/dl Total Bilirubin 0.3 0.2-1 mg/dl Aspartate Amino Transf (AST/SGOT) 11 15-37 U/L Alanine Aminotransferase (ALT/SGPT) 28 12-78 U/L Alkaline Phosphatase 73 45-117 U/L Total Protein 7.0 6.4-8.2 gm/dl Albumin 3.8 3.4-5.0 gm/dl Globulin 3.2 2.5-4.0 gm/dl Albumin/Globulin Ratio 1.2 0.9-2 Lipase 150 73-393 U/L Impression Assessment and Plan GI BLEED: -melena, coffee ground emesis; has not recurred since being in the ER -serial H&H -protonix IV -consult to GI -clear liquid only for now -started on IV fluids -CTA did not show evidence of ischemic colitis, essentially an unremarkable study other than mention of mild splenomegaly and diverticulosis -patient denies any alcohol or NSAID use HTN: -continue home meds atenolol and lisinopril with holding parameters AVASCULAR NECROSIS OF RIGHT HIP: -PRN analgesia continued -patient is in process of getting approved for surgery Level of Care Med/Surg Resuscitation Status FULL RESUSCITATION VTE Prophylaxis VTE Risk Assessment Done? Y/N: Yes Risk Level: Moderate Given or contraindicated: SCD's
[2017-05-10 06:00] LABS: HEMATOCRIT 38.7 % (42-52); HEMOGLOBIN 13.5 g/dL (14.0-18.0); MEAN CELL VOLUME 85.6 fL (80-100); MEAN CORPUSCULAR HEMOGLOBIN 29.9 pg (25-34); MEAN CORPUSCULAR HGB CONC 34.9 g/dl (32-36); MEAN PLATELET VOLUME 9.5 fL (7.4-10.4); PLATELET COUNT 190 K/uL (130-400); RED CELL DISTRIBUTION WIDTH SD 40.3 fL (36.4-46.3); WHITE BLOOD COUNT 6.73 K/uL (4.8-10.8)
[2017-05-10] MEDS: MoRPHine SULFATE 4 MG/ML 1 ML CARP\\VIAL IV PRN ×4 (06:03→15:18)
[2017-05-10 06:36] LABS: CALCIUM 8.4 mg/dl (8.5-10.1); CREATININE 0.96 mg/dl (0.60-1.40); POTASSIUM 3.4 mmol/L (3.5-5.1)
[2017-05-10 07:32] VITALS: BP 127/79; PULSE 62; TEMP 36.9; O2SAT 99
[2017-05-10] MEDS: ONDANSETRON INJ 2 MG/ML 2 ML VIAL IV PRN ×2 (08:32→15:17)
[2017-05-10 08:36] VITALS: BP 135/91; PULSE 66
[2017-05-10] MEDS: PANTOprazole INJ 40 MG in SYRINGE 0 ML IV SCH ×2 (08:38→20:47)
--- NOTE | 2017-05-10 14:40 | GASTROINTESTINAL CONSULTATION ---
DATE OF CONSULTATION: 05/10/2017 REFERRING PHYSICIAN: Kassie Phillips DO I was asked by Dr. Phillips to consult on this gentleman because of complaints of GI bleeding. HISTORY OF PRESENT ILLNESS: The patient is a 56-year-old who presented to the ER complaining of some nausea and vomiting. He says there were some streaks of red blood in his vomitus and he also has this chronic abdominal pain and states that he had some dark stools. He had a similar presentation in January. He had bidirectional endoscopy at that time by Dr. Jarrett and no significant pathology was found. He also has had gastrointestinal evaluation at other local GI groups including [facility]. There has been a concern that some of his symptoms are functional and he has been put on anticholinergics. He states that he has daily abdominal pain. He also complains of almost daily nausea. He does not feel that his symptoms are made worse by eating and he denies any weight loss. He denies any fevers, recent travel or antibiotic use. PAST MEDICAL HISTORY: I reviewed his medical records and his past medical history and he has a history of heartburn symptoms, hypertension, osteoarthritis, avascular hip necrosis. He is status post cholecystectomy, appendectomy and bilateral knee replacement. FAMILY HISTORY: He denies any family history of gastrointestinal disease. SOCIAL HISTORY: Significant for no alcohol and no smoking. ALLERGIES: HE STATES HE IS ALLERGIC TO ____. OUTPATIENT MEDICATIONS: Include Tenormin, Zestril, Prilosec, and p.r.n. oxycodone for pain. REVIEW OF SYSTEMS: As above, otherwise he denies any recent fever, chills, change in vision or hearing. He has had no skin rashes, pruritus or icterus. He denies any joint swelling or pain. He has had no dysuria or polyuria. He denies any shortness of breath or productive cough. He denies any depression or history of seizures. He has had no easy bruising or memory loss. PHYSICAL EXAMINATION: GENERAL: Reveals a gentleman lying in bed reading, in no distress. VITAL SIGNS: Most recent temperature is 36.9, pulse is 62, blood pressure is 127/79. SKIN: Anicteric. EYES: Show anicteric sclerae. MOUTH: Clear of lesions. NECK: Supple. LUNGS: Clear. HEART: Regular rate and rhythm. ABDOMEN: Benign. EXTREMITIES: Warm with good distal pulses. NEUROLOGIC: He is grossly intact. Alert and oriented x3. LABORATORY DATA: Show a white blood cell count is normal at 6.7, hemoglobin of 14.3, normal platelet count. Liver enzymes were normal and CT angiogram only showed mild colonic diverticulosis, no evidence of diverticulitis and no other significant abnormalities to explain the symptoms. His hemoglobin has remained stable. IMPRESSION AND PLAN: A 56-year-old gentleman with chronic abdominal pain, nausea of unclear etiology, though he has had normal bidirectional endoscopy and appears to have other evaluations by gastroenterology service in the area. I think it is reasonable if this has not been done to set him up for a small bowel x-ray, this would be upper gastrointestinal or small bowel follow through. This could be done tomorrow in the hospital to make sure there is no small bowel pathology. He has had no signs of true active bleeding. The red streaks in his vomitus could have just been from capillary bleeding, but again his hemoglobin appears to be stable and I would continue to follow this as well. I would advance his diet as tolerated.
[2017-05-10 15:05] LABS: HEMATOCRIT 38.7 % (42-52); HEMOGLOBIN 13.2 g/dL (14.0-18.0)
[2017-05-10 15:26] VITALS: BP 137/89; PULSE 67; TEMP 37; O2SAT 96
[2017-05-10] MEDS ORDERED: POTASSIUM CHLORIDE 20 MEQ TABCR PO STA (15:36)
--- NOTE | 2017-05-10 15:43 | Progress Note ---
Progress Note Date of Service May 10, 2017. Progress Note Subjective: Patient reports that since admission he had black stool in the ED but the automatic toilet flushed it away and was unwitnessed. To this point he has not made bowl movement that was dark in hospital war. Also no vomiting of blood. Patient was evaluated by GI and repeat Hgb fairly stable as successive CBC are 14.3 and 13.5 and 13.2 Physical Exam: General: no acute distress, patient has somewhat flat affect when speaking Abdomen: mild grimacing on palpation of abdomen, point tenderness unidentifiable , previous surgical scar seen from history of appendectomy and gallbladder removal Lungs: CTABL Heart: Regular rate Extremities: no edema Imaging 05/09/[address] CT [address] 1[address] CT angiogram of the abdomen and pelvis. 2. There are no acute infectious or inflammatory findings in the abdomen or pelvis. 3. Mild colonic diverticulosis without CT evidence of acute diverticulitis. 4. Mild splenomegaly. 5. There is avascular necrosis of the right femoral head GI assessment Dr. Cruz 05/10/17: "A 56-year-old gentleman with chronic abdominal pain, nausea of unclear etiology , though he has had normal bidirectional endoscopy and appears to have other evaluations by gastroenterology service in the area. I think it is reasonable if this has not been done to set him up for a small bowel x-ray, this would be upper gastrointestinal or small bowel follow through. This could be done tomorrow in the hospital to make sure there is no small bowel pathology. He has had no signs of true active bleeding. The red streaks in his vomitus could have just been from capillary bleeding, but again his hemoglobin appears to be stable and I would continue to follow this as well. I would advance his diet as tolerated." -will follow GI recommendations -patient agrees to staying in hospital for GI testing tomorrow -will also minimize narcotic medications for abdominal discomfort -have encouraged patient to ambulate -DVT ppx with SCDs
[2017-05-10 22:03] LABS: HEMATOCRIT 38.7 % (42-52); HEMOGLOBIN 13.5 g/dL (14.0-18.0)
[2017-05-10 22:54] VITALS: BP 120/73; PULSE 64; TEMP 36.4; O2SAT 97
[2017-05-11] MEDS: SODIUM CHLORIDE 0.9% 1000ML 1,000 ML IV SCH ×2 (00:31→11:39)
[2017-05-11] MEDS: OXYCODONE HCL IR 5 MG TAB (IMMEDIATE RELEASE) PO PRN (05:30)
[2017-05-11 06:05] LABS: HEMATOCRIT 39.4 % (42-52); HEMOGLOBIN 13.6 g/dL (14.0-18.0)
[2017-05-11 07:40] VITALS: BP 142/76; PULSE 60; TEMP 36.6; O2SAT 96
[2017-05-11 07:43] VITALS: O2SAT 96
--- NOTE | 2017-05-11 08:58 | Gastroenterology Progress Note ---
Progress Note Date of Service: May 11, 2017 Subjective Pt evaluation today including: conversation w/ patient, physical exam, chart review, lab review Pt seen and evaluated, chart reviewed. Admitted with chronic abdominal pain w/ reports of coffee ground emesis, hematemesis, melena and BRBPR w/ stable labs. He tells me this happens chronically. Had EGD and colonoscopy for this while admitted back in January. No abnormal findings. He has chronic abd pain, generalized. Worse after PO intake. Has daily nausea, no vomiting typically. Pain is constant, sharp w/ pressure. Alleviating factors have been narcotic pain medications. Tells me he continues to move his bowels. Now is denying black or bloody stools. No fever, chills. Denies CP, SOB CTA 05/09/17: Unremarkable CT angiogram of the abdomen and pelvis. There are no acute infectious or inflammatory findings in the abdomen orpelvis. Mild colonic diverticulosis without CT evidence of acute diverticulitis. Mild splenomegaly. There is avascular necrosis of the right femoral head. Additional findings as above. EGD 01/19/17: Hiatus hernia.Normal stomach. Normal examined duodenum. No specimens collected. Colonoscopy 01/20/17: Diverticulosis in the sigmoid colon and in the descending colon.The examined portion of the ileum was normal. Internal hemorrhoids. No specimens collected. Repeat colonoscopy in 5 years for screening purposes Review of Systems Constitutional: No fever, No chills, No sweats, No weight loss, No weakness, No fatigue ENT: No hearing loss, No sore throat, No tinnitus, No trouble swallowing, No pain on swallowing Respiratory: No cough, No sputum, No wheezing, No shortness of breath, No hemoptysis Cardiac: No chest pain, No edema, No palpitations Abdomen: + pain, + nausea, No vomiting, No diarrhea, No constipation, No GI bleeding, No dysphagia Musculoskeletal: + joint pain, No muscle pain, No swelling, No calf pain Endo: No fatigue, No excessive thirst, No excessive urination Skin: No rash, No itch, No color change, No bleeding Medications Current Inpatient Medications Medications (Trade) Dose Ordered Sig/Hayley Route Start Time Stop Time Status Last Admin Dose Admin Ioversol (Optiray 320) 100 ml UD PRN IV 05/09/17 23:45 05/13/17 23:44 Acetaminophen (Tylenol Tab) 650 mg Q4H PRN PO 05/10/17 04:00 06/09/17 03:59 Polyethylene (Miralax Powder Packet) 17 gm DAILY PRN PO 05/10/17 04:00 06/09/17 03:59 Ondansetron HCl (Zofran Inj) 4 mg Q6H PRN IV 05/10/17 04:00 06/09/17 03:59 05/10/17 15:17 4 MG Sodium Chloride 1,000 ml @ 100 mls/hr Q10H IV 05/10/17 05:00 06/09/17 04:59 05/11/17 00:31 100 MLS/HR Pantoprazole Sodium 40 mg/ Syringe 10 ml @ 5 mls/min DAILY@ IV 05/10/17 09:00 06/09/17 08:59 05/10/17 20:47 5 MLS/MIN Atenolol (Tenormin Tab) 25 mg DAILY PO 05/10/17 09:00 06/09/17 08:59 05/10/17 08:37 25 MG Oxycodone HCl (Roxicodone Immediate Rel Tab) 5 mg Q6 PRN PO 05/10/17 04:00 05/24/17 03:59 05/11/17 05:30 5 MG Objective Vital Signs Date Time Temp Pulse Resp B/P (MAP) Pulse Ox O2 Delivery O2 Flow Rate FiO2 05/11/17 07:45 Room Air 05/11/17 07:43 96 Room Air 05/11/17 07:40 36.6 60 19 142/76 (98) 96 Room Air 05/10/17 23:34 Room Air 05/10/17 22:54 36.4 64 16 120/73 (89) 97 Room Air 05/10/17 15:26 37.0 67 16 137/89 (105) 96 Room Air 05/10/17 15:10 Room Air Physical Exam General Appearance: no apparent distress Eyes: PERRL ENT: TMs normal Neck: supple, no adenopathy, no JVD, trachea midline Respiratory/Chest: lungs clear, normal breath sounds, no respiratory distress, no accessory muscle use Cardiovascular: regular rate, rhythm, no gallop, no JVD, no murmur Abdomen: normal bowel sounds, non tender, soft, no organomegaly 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: alert, normal mood/affect, oriented x 3 Skin: normal color, no jaundice, warm/dry Laboratory Results Last 24 Hours Test 05/10/17 14:54 05/10/17 21:55 05/11/17 05:54 Hemoglobin 13.2 g/dL 13.5 g/dL 13.6 g/dL Hematocrit 38.7 % 38.7 % 39.4 % Assessment and Plan 63 year old male with chronic abdominal pain on narcotics for avascular necrosis , notes his abdominal pain is severe, constant 8/10 worse with PO intake. He has reports of hematemesis, coffee ground emesis, melena and BRBPR. His VSS have remained stable w/ stable H&H and normal BUN. He has had 2 admission at [facility] for similar symptoms with an inpatient EGD/Colonoscopy without any source of GI blood loss identified. Perhaps some of his abdominal pain is related to his narcotic use. - Small bowel study today - Continue OP dosing of PPI - Omeprazole 40 mg daily - Miralax 17 g daily - Bentyl 10 mg three times daily - Limit narcotic use No GI contraindication to sign off. Please call with any questions or concerns. ATTESTATION: I have performed a history and physical examination of this patient and reviewed the electronic record. Specifically, on physical examination abdomien is soft with minimal tenderness. I suspect his pain is related to narcotic use. I have discussed the case with HUEY Villatoro. The above note reflects my findings, conclusions, and recommendations. Himanshu Olson MD
--- NOTE | 2017-05-11 11:28 | DIAGNOSTIC IMAGING REPORT ---
GI SERIES AND SMALL BOWEL CLINICAL HISTORY: 56 years-old Male with abdominal pain symptoms, patient reported bleeding. TECHNIQUE: A standard air contrast upper GI series was performed following administration of barium and effervescent crystals. Small bowel follow-through also conducted Multiple spot fluoroscopic images were obtained and provided for review. A total of 39 images were submitted. COMPARISON STUDY: CTA abdomen and pelvis 05/10/2017 FLUOROSCOPY TIME: 3.2 minutes. FINDINGS: The patient swallowed barium without difficulty. No aspiration was definitively visualized. The esophagus distended normally with barium and effervescent crystals. No strictures, mucosal ulcerations, or intraluminal mass lesions were identified involving the esophagus. There was no significant gastroesophageal reflux. Barium was seen to flow freely through the gastroesophageal junction. No active reflux was demonstrated with Valsalva maneuver. Evaluation of the stomach demonstrates no gastric mucosal irregularity or filling defect. There is however mild fold thickening noted throughout the stomach. Cholecystectomy clips noted. The duodenal bulb and sweep appear unremarkable the exception of a small diverticulum involving the second portion of the duodenum. There is contrast extension into the colon at 1 hour 35 minutes without evidence of small bowel obstruction or small bowel dilation. Colonic diverticula are noted. Spot images within all 4 quadrants of the abdomen demonstrate freely movable small bowel which appears unremarkable. IMPRESSION: 1. Apparent mild fold thickening of the stomach of unknown etiology could be correlated with endoscopy. 2. Small duodenal diverticulum. 3. Colonic diverticulosis. 4. No bowel obstruction. The above report was generated using voice recognition software. It may contain grammatical, syntax or spelling errors. Electronically signed by: Prashanth Batres M.D. 05/11/2017 11:26 AM Dictated Date/Time: 05/11/2017 11:22 AM
[2017-05-11] MEDS: PANTOprazole INJ 40 MG in SYRINGE 0 ML IV SCH (11:39)
[2017-05-11] MEDS ORDERED: METHYLNALTREXONE BROMIDE INJ 12 MG/0.6 ML SYR SQ SCH (13:00)
--- NOTE | 2017-05-11 14:41 | Progress Note ---
Internal Med Progress Note Date of Service: May 11, 2017. Provider Documentation: SUBJECTIVE: Patient had small tj study today. No acute distress before or after the test. Patient understands discharge instructions OBJECTIVE: Physical Exam: General: no acute distress Abdomen: mild grimacing on palpation of abdomen, point tenderness unidentifiable , previous surgical scar seen from history of appendectomy and gallbladder removal Lungs: CTABL Heart: Regular rate Extremities: no edema ASSESSMENT & PLAN: Hospital course: Patient reports that since admission he had black stool in the ED but the automatic toilet flushed it away and was unwitnessed. To this point he has not made bowl movement that was dark in hospital [place]. Also no vomiting of blood. Patient was evaluated by GI and repeat Hgb fairly stable as successive CBC are 14.3 and 13.5 and 13.2 and 13.5 and13.6 In the hospital, patient received Iv fluid, IV protonix; and also Relistor injection on 05/11/17 Imaging 05/09/17 CT angiography report 1. Unremarkable CT angiogram of the abdomen and pelvis. 2. There are no acute infectious or inflammatory findings in the abdomen or pelvis. 3. Mild colonic diverticulosis without CT evidence of acute diverticulitis. 4. Mild splenomegaly. 5. 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 No aspiration was definitively visualized. The esophagus distended normally with barium and effervescent crystals. No strictures, mucosal ulcerations, or intraluminal mass lesions were identified involving the esophagus. There was no significant gastroesophageal reflux. Barium was seen to flow freely through the gastroesophageal junction. No active reflux was demonstrated with Valsalva maneuver. Evaluation of the stomach demonstrates no gastric mucosal irregularity or filling defect. There is however mild fold thickening noted throughout the stomach. Cholecystectomy clips noted. The duodenal bulb and sweep appear unremarkable the exception of a small diverticulum involving the second portion of the duodenum. There is contrast extension into the colon at 1 hour 35 minutes without evidence of small bowel obstruction or small bowel dilation. Colonic diverticula are noted. Spot images within all 4 quadrants of the abdomen demonstrate freely movable small bowel which appears unremarkable. IMPRESSION: 1. Apparent mild fold thickening of the stomach of unknown etiology could be correlated with endoscopy. 2. Small duodenal diverticulum. 3. Colonic diverticulosis. 4. No bowel obstruction. There is no need for endoscopy at this time as per Gastroenterology service Gastroenterology service recommends with outpatient dosing of - Omeprazole 40 mg daily - Miralax 17 g daily - Bentyl 10 mg three times daily - Limit narcotic use Follow up with 05/20/2017 10:30 AM [facility], [facility] Please call [phone] if need to re-schedule Gastroenterology appointment Patient reports primary care [place] clinic follow up with Dr. Eboni Cleary on 05/21/17 Vital Signs: Date Time Temp Pulse Resp B/P (MAP) Pulse Ox O2 Delivery O2 Flow Rate FiO2 05/11/17 07:45 Room Air 05/11/17 07:43 96 Room Air 05/11/17 07:40 36.6 60 19 142/76 (98) 96 Room Air 05/10/17 23:34 Room Air 05/10/17 22:54 36.4 64 16 120/73 (89) 97 Room Air 05/10/17 15:26 37.0 67 16 137/89 (105) 96 Room Air 05/10/17 15:10 Room Air Lab Results: Results Past 24 Hours Test 05/10/17 14:54 05/10/17 21:55 05/11/17 05:54 Range/Units Hemoglobin 13.2 13.5 13.6 14.0-18.0 g/dL Hematocrit 38.7 38.7 39.4 42-52 %
[2017-05-11] MEDS ORDERED: DICY10CA55 PO (14:48)
[2017-05-11] MEDS ORDERED: MRLP17X PO (14:48)
--- NOTE | 2017-05-11 14:54 | Discharge Instructions ---
Discharge Instructions Date of Service May 11, 2017. Admission Reason for Admission: Abdominal Pain, Gi Bleed Discharge Discharge Diagnosis / Problem: GI bleed ruled out; abdominal pain Discharge Goals Goal(s): Decrease discomfort, Improve function Activity Recommendations Activity Limitations: per Instructions/Follow-up section Shower/Bathe: no limitations . Instructions / Follow-Up Instructions / Follow-Up Hospital course: Patient reports that since admission he had black stool in the ED but the automatic toilet flushed it away and was unwitnessed. To this point he has not made bowl movement that was dark in hospital guadarrama. Also no vomiting of blood. Patient was evaluated by GI and repeat Hgb fairly stable as successive CBC are 14.3 and 13.5 and 13.2 and 13.5 and13.6 In the hospital, patient received Iv fluid, IV protonix; and also Relistor injection on 05/11/17 Imaging 05/09/17 CT angiography report 1. Unremarkable CT angiogram of the abdomen and pelvis. 2. There are no acute infectious or inflammatory findings in the abdomen or pelvis. 3. Mild colonic diverticulosis without CT evidence of acute diverticulitis. 4. Mild splenomegaly. 5. 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 No aspiration was definitively visualized. The esophagus distended normally with barium and effervescent crystals. No strictures, mucosal ulcerations, or intraluminal mass lesions were identified involving the esophagus. There was no significant gastroesophageal reflux. Barium was seen to flow freely through the gastroesophageal junction. No active reflux was demonstrated with Valsalva maneuver. Evaluation of the stomach demonstrates no gastric mucosal irregularity or filling defect. There is however mild fold thickening noted throughout the stomach. Cholecystectomy clips noted. The duodenal bulb and sweep appear unremarkable the exception of a small diverticulum involving the second portion of the duodenum. There is contrast extension into the colon at 1 hour 35 minutes without evidence of small bowel obstruction or small bowel dilation. Colonic diverticula are noted. Spot images within all 4 quadrants of the abdomen demonstrate freely movable small bowel which appears unremarkable. IMPRESSION: 1. Apparent mild fold thickening of the stomach of unknown etiology could be correlated with endoscopy. 2. Small duodenal diverticulum. 3. Colonic diverticulosis. 4. No bowel obstruction. There is no need for endoscopy at this time as per Gastroenterology service Gastroenterology service recommends with outpatient dosing of - Omeprazole 40 mg daily - Miralax 17 g daily - Bentyl 10 mg three times daily - Limit narcotic use Follow up with 05/20/2017 10:30 AM HUEY Benedict [facility], [facility] Please call [phone] if need to re-schedule Gastroenterology appointment Patient reports primary care [place] clinic follow up with Dr. Eboni Cleary on 05/21/17 Current Hospital Diet Patient's current hospital diet: Regular Diet Discharge Diet Recommended Diet: Regular Diet Pending Studies Studies pending at discharge: no Laboratory Results 05/10/17 05:29 05/11/17 05:54 05/10/17 05:29 Test 05/09/17 23:30 05/10/17 05:29 Immature Granulocyte % (Auto) 0.4 % White Blood Count 7.63 K/uL (4.8-10.8) Red Blood Count 4.89 M/uL (4.7-6.1) 4.52 M/uL (4.7-6.1) Hemoglobin 14.3 g/dL (14.0-18.0) Hematocrit 41.5 % (42-52) Mean Corpuscular Volume 84.9 fL (80-100) 85.6 fL (80-100) Mean Corpuscular Hemoglobin 29.2 pg (25-34) 29.9 pg (25-34) Mean Corpuscular Hemoglobin Concent 34.5 g/dl (32-36) 34.9 g/dl (32-36) Platelet Count 209 K/uL (130-400) Mean Platelet Volume 9.6 fL (7.4-10.4) 9.5 fL (7.4-10.4) Neutrophils (%) (Auto) 65.2 % Lymphocytes (%) (Auto) 19.7 % Monocytes (%) (Auto) 12.1 % Eosinophils (%) (Auto) 2.2 % Basophils (%) (Auto) 0.4 % Neutrophils # (Auto) 4.98 K/uL (1.4-6.5) Lymphocytes # (Auto) 1.50 K/uL (1.2-3.4) Monocytes # (Auto) 0.92 K/uL (0.11-0.59) Eosinophils # (Auto) 0.17 K/uL (0-0.5) Basophils # (Auto) 0.03 K/uL (0-0.2) Immature Granulocyte # (Auto) 0.03 K/uL (0.00-0.02) Prothrombin Time 10.8 SECONDS (9.0-12.0) Prothromb Time International Ratio 1.0 (0.9-1.1) Total Bilirubin 0.3 mg/dl (0.2-1) Aspartate Amino Transf (AST/SGOT) 11 U/L (15-37) Alanine Aminotransferase (ALT/SGPT) 28 U/L (12-78) Alkaline Phosphatase 73 U/L (45-117) Total Protein 7.0 gm/dl (6.4-8.2) Albumin 3.8 gm/dl (3.4-5.0) Globulin 3.2 gm/dl (2.5-4.0) Albumin/Globulin Ratio 1.2 (0.9-2) Lipase 150 U/L (73-393) RDW Standard Deviation 40.3 fL (36.4-46.3) RDW Coefficient of Variation 13.0 % (11.5-14.5) Anion Gap 8.0 mmol/L (3-11) Est Creatinine Clear Calc Drug Dose 105.5 ml/min Estimated GFR () 102.7 Estimated GFR (Non- 88.6 BUN/Creatinine Ratio 11.7 (10-20) Calcium Level 8.4 mg/dl (8.5-10.1) Lipid Panel Test 02/10/17 05:14 Range/Units Triglycerides Level 124 0-150 mg/dl Cholesterol Level 101 0-200 mg/dl HDL Cholesterol 28 mg/dl Cholesterol/HDL Ratio 3.6 LDL Cholesterol, Calculated 48 mg/dl Medical Emergencies . Who to Call and When: Medical Emergencies: If at any time you feel your situation is an emergency, please call 911 immediately. . Non-Emergent Contact Non-Emergency issues call your: Primary Care Provider, Edger Tailer Call Non-Emergent contact if: you have any medication questions . . "Provider Documentation" section prepared by Hugh Ac. . VTE Core Measure Inpt VTE Proph given/why not?: SCD's
--- NOTE | 2017-05-11 15:01 | Discharge Summary ---
Discharge Summary Date of Service May 11, 2017. Discharge Summary Admission Date: May 10, 2017 at 03:52 Discharge Date: May 11, 2017 Discharge Disposition: Home Principal Diagnosis: abdominal pain, GI bleed ruled out Medication Reconciliation New Medications: Dicyclomine Hcl (Bentyl) 10 Mg Cap 1 CAP PO TID for 14 Days, #42 CAP 0 Refills Polyethylene (Miralax) 17 Gm Pow 17 GM PO DAILY PRN for Constipation for 30 Days, #510 GM Continued Medications: Atenolol (Tenormin) 25 Mg Tab 25 MG PO DAILY, TAB Lisinopril (Zestril) 20 Mg Tab 20 MG PO DAILY, TAB Omeprazole (Prilosec) 20 Mg Capcr 40 MG PO DAILY, CAP Oxycodone Ir (Roxicodone Ir) 5 Mg Tab 5 MG PO Q6 PRN for Severe Pain, TAB Admission Information HPI (per Admitting provider): Patient is a 56 yo male who presents to the ER for complaints nausea, vomiting, and blood in the vomit and stool that began last evening around 6 PM. He states he began having abdominal pain and nausea, and when he vomited he saw black/ coffee ground appearance to his gastric contents, and also bright red blood. He states then at 9 PM he had stools that were melanotic and also with blood, and he then headed to the hospital. He states he has had similar bleeding before and a source was not identified. He reports his symptoms are similar but this time he is having more intense abdominal pain than the last admission in Jan 2017. The patient reports mild improvement of symptoms with vomiting or BM. He denies any alcohol, tobacco, illicit drug use. He denies any NSAID use. He states he is still having severe pain and nausea despite getting zofran, morphine, and fentanyl. Physical Exam (per Admitting): General Appearance: WD/WN, no apparent distress Head: normocephalic, atraumatic Eyes: PERRL, EOMI, sclerae normal ENT: hearing grossly normal Neck: supple, no JVD, no carotid bruits, trachea midline Respiratory/Chest: chest non-tender, lungs clear, normal breath sounds, no respiratory distress, no accessory muscle use Cardiovascular: regular rate, rhythm, no edema, no gallop, no JVD, no murmur Abdomen/GI: normal bowel sounds, non tender, soft, no organomegaly Back: normal inspection, no CVA tenderness Extremities/Musculoskelatal: no calf tenderness, normal capillary refill, no pedal edema 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: no motor/sensory deficits, alert, normal mood/affect, oriented x 3 Skin: normal color, warm/dry, no rash Hospital Course Hospital course: Patient reports that since admission he had black stool in the ED but the automatic toilet flushed it away and was unwitnessed. To this point he has not made bowl movement that was dark in hospital guadarrama. Also no vomiting of blood. Patient was evaluated by GI and repeat Hgb fairly stable as successive CBC are 14.3 and 13.5 and 13.2 and 13.5 and13.6 In the hospital, patient received Iv fluid, IV protonix; and also Relistor injection on 05/11/17 Imaging 05/09/17 CT angiography report 1. Unremarkable CT angiogram of the abdomen and pelvis. 2. There are no acute infectious or inflammatory findings in the abdomen or pelvis. 3. Mild colonic diverticulosis without CT evidence of acute diverticulitis. 4. Mild splenomegaly. 5. 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 No aspiration was definitively visualized. The esophagus distended normally with barium and effervescent crystals. No strictures, mucosal ulcerations, or intraluminal mass lesions were identified involving the esophagus. There was no significant gastroesophageal reflux. Barium was seen to flow freely through the gastroesophageal junction. No active reflux was demonstrated with Valsalva maneuver. Evaluation of the stomach demonstrates no gastric mucosal irregularity or filling defect. There is however mild fold thickening noted throughout the stomach. Cholecystectomy clips noted. The duodenal bulb and sweep appear unremarkable the exception of a small diverticulum involving the second portion of the duodenum. There is contrast extension into the colon at 1 hour 35 minutes without evidence of small bowel obstruction or small bowel dilation. Colonic diverticula are noted. Spot images within all 4 quadrants of the abdomen demonstrate freely movable small bowel which appears unremarkable. IMPRESSION: 1. Apparent mild fold thickening of the stomach of unknown etiology could be correlated with endoscopy. 2. Small duodenal diverticulum. 3. Colonic diverticulosis. 4. No bowel obstruction. There is no need for endoscopy at this time as per Gastroenterology service Gastroenterology service recommends with outpatient dosing of - Omeprazole 40 mg daily - Miralax 17 g daily - Bentyl 10 mg three times daily - Limit narcotic use Follow up with 05/20/2017 10:30 AM HUEY Benedict Gastroenterology, [facility] Please call [phone] if need to re-schedule Gastroenterology appointment Patient reports primary care [place] clinic follow up with Dr. Eboni Cleary on 05/21/17 Total time spent on discharge = 60 minutes This includes examination of the patient, discharge planning, medication reconciliation, and communication with other providers. Discharge Instructions see above
[2017-05-11 16:07] VITALS: BP 142/76; PULSE 60; TEMP 36.6; O2SAT 96
== END 2017-05-11 16:36 | disposition home or self-care (01) | DRG 392 ==
LOC: C.EDB 22:46 → C.3E 05-10 03:52 → ENRESERV 05-10 04:10
PROVIDERS: ADMIT Internal Medicine; ATTEND Hospitalist
DX: R10.84 Generalized abdominal pain (principal); M87.9 Osteonecrosis, unspecified; Z83.3 Family history of diabetes mellitus; Z82.49 Family history of ischemic heart disease and other diseases of the circulatory system; Z82.5 Family history of asthma and other chronic lower respiratory diseases; Z80.8 Family history of malignant neoplasm of other organs or systems; I10 Essential (primary) hypertension

== ENCOUNTER 2017-10-15 12:40 | Inpatient (IN) | payer OTHER ==
[~2017-10-15] VITALS: Ht 177.8 cm; Wt 108.7 kg
[~2017-10-15 12:40] MED LIST changes: -MRLP17 PO; +OXYC-90 PO; -OXYC1TAB3 PO; +PANT1TAB4 PO; -PRLSR20 PO
[2017-10-15] MEDS ORDERED: SODIUM CHLORIDE 0.9% 1000ML 1,000 ML IV STA (14:00)
[2017-10-15] MEDS ORDERED: MoRPHine SULFATE 4 MG/ML 1 ML CARP\\VIAL IV PRN (14:00)
[2017-10-15] MEDS ORDERED: MoRPHine SULFATE 4 MG/ML 1 ML CARP\\VIAL IV STA (14:00)
[2017-10-15] MEDS ORDERED: ONDANSETRON INJ 2 MG/ML 2 ML VIAL IV STA (14:00)
--- NOTE | 2017-10-15 14:07 | EMERGENCY ROOM VISIT NOTE ---
History Report prepared by Letty: Prem Louie Under the Supervision of: Dr. Sedrick Flores M.D. First contact with patient: 13:52 Chief Complaint: GI ASSESSMENT Stated Complaint: GI BLEEDING, VOMITING BLOOD, SEVERE PAIN Nursing Triage Summary: patient c/o Gi bleed since last evening with abdominal pain, states "its been going on on and off for a year" History of Present Illness The patient is a 57 year old male who presents to the Emergency Room with complaints of intermittent hematemesis and hematochezia that began this morning. Patient adds he started to have hematemesis 11 hours ago and hematochezia 5 hours ago. He describes his vomit as a "surgery center administrator streaky color" and his stools as a "blackish tar". Patient adds he vomited more blood the second time compared to the first. He states he has also abdominal pain. He describes the pain as a "9/10" in severity. Patient states he has a history of similar symptoms over the past year. He states he has had endoclips placed for his history of stomach ulcers. He adds his GI doctor is concerned for possible internal rectal hemorrhoids. Patient states he is seen by the SD in [place]. He states he is not followed by anyone in [place]. Patient adds that he takes Protonix. He states that he watches what he eats and tries to avoid foods that upset his stomach. Patient states he takes Oxycodone for his pain with his last dose being 7 hours ago. Source of History: patient Onset: This morning Position: head, other (Rectal) Timing: intermittent Modifying Factors (Worsening): other (None) Modifying Factors (Relieving): other (Oxycodone) Associated Symptoms: + abdominal pain Review of Systems See HPI for pertinent positives & negatives. A total of 10 systems reviewed and were otherwise negative. Past Medical & Surgical Medical Problems: (1) Abdominal pain (2) CAD (coronary artery disease) (3) Chest pain (4) GERD (gastroesophageal reflux disease) (5) HTN (hypertension) (6) Osteoarthritis (7) Rectal bleeding (8) Rectal bleeding (9) UGIB (upper gastrointestinal bleed) Surgical Problems: (1) H/O vasectomy (2) History of bilateral knee replacement (3) History of tonsillectomy and adenoidectomy (4) Hx of appendectomy (5) Hx of cholecystectomy (6) Hx of vasectomy (7) S/P appendectomy (8) S/P cholecystectomy (9) S/P knee replacement Family History Diabetes mellitus FATHER FH: CAD (coronary artery disease) FATHER FH: COPD (chronic obstructive pulmonary disease) MOTHER FH: cancer MOTHER (pancreatitic CA) Gallbladder disease Hypertension Lung disease Social History Smoking Status: Never Smoker Alcohol Use: none Drug Use: none Marital Status: in relationship Housing Status: lives with significant other Occupation Status: employed Current/Historical Medications Scheduled Atenolol (Tenormin), 25 MG PO QAM Lisinopril (Zestril), 20 MG PO QAM Pantoprazole (Protonix), 40 MG PO BID Scheduled PRN Oxycodone Ir (Roxicodone Ir), 5 MG PO Q4H PRN for Severe Pain Allergies Coded Allergies: Ketorolac Tromethamine (Verified Allergy, Unknown, SHORTNESS OF BREATH, RASH, 10/15/17) Physical Exam Vital Signs Date Time Temp Pulse Resp B/P (MAP) Pulse Ox O2 Delivery O2 Flow Rate FiO2 10/15/17 16:26 100 Room Air 10/15/17 16:15 73 16 100 10/15/17 16:01 138/83 10/15/17 15:45 61 20 100 10/15/17 15:32 168/99 10/15/17 15:30 62 12 168/99 100 Room Air 10/15/17 15:15 60 13 100 10/15/17 15:10 69 20 98 10/15/17 15:01 128/85 10/15/17 14:40 64 16 97 10/15/17 14:40 64 10/15/17 14:38 132/105 10/15/17 12:48 36.8 71 20 147/89 98 Room Air Physical Exam GENERAL: Patient is in no acute distress. HEENT: No acute trauma, normocephalic atraumatic, mucous membranes moist, no nasal congestion, no scleral icterus. NECK: No stridor, no adenopathy, no meningismus, trachea is midline. LUNGS: Clear to auscultation bilaterally, no wheeze, no rhonchi, breath sounds equal. HEART: Without murmurs gallops or rubs, regular rate and rhythm. ABDOMEN: Soft, nontender, bowel sounds positive, no hernias, no peritonitis. RECTAL: Dark stool, heme positive. EXTREMITIES: No cyanosis or edema, full range of motion of all the joints without pain or difficulty, no signs for acute trauma. NEUROLOGIC: Oriented x 3, no acute motor or sensory deficits, no focal weakness. SKIN: No rash, no jaundice, no diaphoresis. Medical Decision & Procedures ER Provider Diagnostic Interpretation: Radiology results as stated below per my review and radiologist interpretation: CHEST ONE VIEW PORTABLE HISTORY: 57 years-old Male vomiting blood acute hematemesis COMPARISON: Acute abdominal series radiographs 08/30/2017 TECHNIQUE: Portable AP view of the chest FINDINGS: Cardiomediastinal and hilar silhouettes are within normal limits. No pneumothorax, pleural effusion, focal airspace consolidation or overt pulmonary edema. The bones of the chest appear grossly intact. IMPRESSION: No acute process. The above report was generated using voice recognition software. It may contain grammatical, syntax or spelling errors. Electronically signed by: Prashanth Batres M.D. 10/15/2017 2:18 PM Laboratory Results 10/15/17 14:24 Red Blood Count 4.86, Mean Corpuscular Volume 85.8, Mean Corpuscular Hemoglobin 30.0, Mean Corpuscular Hemoglobin Concent 35.0, Mean Platelet Volume 9.8, Neutrophils (%) (Auto) 70.9, Lymphocytes (%) (Auto) 17.5, Monocytes (%) (Auto) 9.4, Eosinophils (%) (Auto) 1.8, Basophils (%) (Auto) 0.2, Neutrophils # (Auto) 4.68, Lymphocytes # (Auto) 1.15, Monocytes # (Auto) 0.62, Eosinophils # (Auto) 0.12, Basophils # (Auto) 0.01 10/15/17 14:24 Test 10/15/17 00:00 10/15/17 14:24 Urine Color YELLOW Urine Appearance CLEAR (CLEAR) Urine pH 5.5 (4.5-7.5) Urine Specific [place] 1.017 (1.000-1.030) Urine Protein NEG (NEG) Urine Glucose (UA) NEG (NEG) Urine Ketones NEG (NEG) Urine Occult Blood NEG (NEG) Urine Nitrite NEG (NEG) Urine Bilirubin NEG (NEG) Urine Urobilinogen NEG (NEG) Urine Leukocyte Esterase NEG (NEG) White Blood Count 6.59 K/uL (4.8-10.8) Red Blood Count 4.86 M/uL (4.7-6.1) Hemoglobin 14.6 g/dL (14.0-18.0) Hematocrit 41.7 % (42-52) Mean Corpuscular Volume 85.8 fL (80-100) Mean Corpuscular Hemoglobin 30.0 pg (25-34) Mean Corpuscular Hemoglobin Concent 35.0 g/dl (32-36) Platelet Count 218 K/uL (130-400) Mean Platelet Volume 9.8 fL (7.4-10.4) Neutrophils (%) (Auto) 70.9 % Lymphocytes (%) (Auto) 17.5 % Monocytes (%) (Auto) 9.4 % Eosinophils (%) (Auto) 1.8 % Basophils (%) (Auto) 0.2 % Neutrophils # (Auto) 4.68 K/uL (1.4-6.5) Lymphocytes # (Auto) 1.15 K/uL (1.2-3.4) Monocytes # (Auto) 0.62 K/uL (0.11-0.59) Eosinophils # (Auto) 0.12 K/uL (0-0.5) Basophils # (Auto) 0.01 K/uL (0-0.2) RDW Standard Deviation 39.6 fL (36.4-46.3) RDW Coefficient of Variation 12.5 % (11.5-14.5) Immature Granulocyte % (Auto) 0.2 % Immature Granulocyte # (Auto) 0.01 K/uL (0.00-0.02) Anion Gap 4.0 mmol/L (3-11) Est Creatinine Clear Calc Drug Dose 116.3 ml/min Estimated GFR () 111.8 Estimated GFR (Non- 96.5 BUN/Creatinine Ratio 18.2 (10-20) Calcium Level 9.0 mg/dl (8.5-10.1) Total Bilirubin 0.4 mg/dl (0.2-1) Aspartate Amino Transf (AST/SGOT) 13 U/L (15-37) Alanine Aminotransferase (ALT/SGPT) 29 U/L (12-78) Alkaline Phosphatase 64 U/L (45-117) Total Protein 7.4 gm/dl (6.4-8.2) Albumin 4.4 gm/dl (3.4-5.0) Globulin 3.0 gm/dl (2.5-4.0) Albumin/Globulin Ratio 1.4 (0.9-2) Lipase 105 U/L (73-393) Laboratory results reviewed by me. Medications Administered Medications (Trade) Dose Ordered Sig/Hayley Route Start Time Stop Time Status Last Admin Dose Admin Sodium Chloride 1,000 ml @ 999 mls/hr Q1H1M STAT IV 10/15/17 14:00 10/15/17 15:00 DC 10/15/17 14:24 999 MLS/HR Ondansetron HCl (Zofran Inj) 4 mg NOW STAT IV 10/15/17 14:00 10/15/17 14:08 DC 10/15/17 14:23 4 MG Morphine Sulfate (MoRPHine SULFATE INJ) 4 mg NOW STAT IV 10/15/17 14:00 10/15/17 14:08 DC 10/15/17 14:24 4 MG Morphine Sulfate (MoRPHine SULFATE INJ) 4 mg NOW PRN IV 10/15/17 14:00 10/15/17 17:51 DC 10/15/17 15:47 4 MG Pantoprazole Sodium 80 mg/ Dextrose 120 ml @ 480 mls/hr NOW STAT IV 10/15/17 14:09 10/15/17 14:23 DC 10/15/17 14:25 480 MLS/HR Pantoprazole Sodium 40 mg/ Dextrose 100 ml @ 20 mls/hr Q5H IV 10/15/17 14:30 10/15/17 19:29 10/15/17 14:26 20 MLS/HR Sodium Chloride 1,000 ml @ 100 mls/hr Q10H IV 10/15/17 16:26 11/14/17 16:25 10/15/17 18:03 100 MLS/HR ECG Per My Interpretation Indication: other (GI bleed) Rate (beats per minute): 64 Rhythm: normal sinus Findings: no ectopy, other (No ST elevation, no PVCs) ED Course 1353: The patient was evaluated in room C11B. A complete history and physical exam was performed. 1400: Morphine Sulfate 4mg IV, Morphine Sulfate 4mg IV, Zofran Inj 4mg IV, and Sodium Chloride 1000 ml @ 999 mls/hr IV. 1409: Pantoprazole Sodium 80mg/Dextrose 120ml @ 480mls/hr 1430: Pantoprazole Sodium 40mg/Dextrose 100ml @ 20mls/hr 1523: I reevaluated the patient and updated him on his findings. 1609: Upon reexamination the patient will be further evaluated. I discussed results and treatment plan with the patient. He verbalizes agreement and understanding. [facility] We discussed the patient's results and findings. The patient will be evaluated by Dr. Monroe for further management. Medical Decision Differential Diagnosis: Ulcer, gastritis, lower GI bleeding, hemorrhoid, dehydration, anemia, esophageal varices, and electrolyte imbalance. There is no leukocytosis or worrisome anemia or kidney failure or hepatitis. Chest film does not show pneumonia, mediastinal widening or free air. EKG shows a normal sinus rhythm, no acute ischemia. Rectal exam here showed dark stool which was heme positive. The patient received IV saline, IV morphine and IV Zofran, he was given IV Protonix as a bolus and then placed on a Protonix drip. Patient presents with hematemesis and blood per rectum. He has a history of gastric ulcers. I do think a hospital stay is warranted to see if his hemoglobin trends down. He may require repeat endoscopy. I spoke with the patient and case management. The on-call hospitalist was consulted. Medication Reconcilliation Current Medication List: was personally reviewed by me Blood Pressure Screening Patient's blood pressure: Elevated blood pressure Referred to hospitalist. Consults Additional Consults: Time Called: 1601 Consulted Physician: Dr. Monroe - [facility] Returned Call: 1602 Additional Comments: Discussed the patient's case. The patient will be evaluated for further management. Impression Primary Impression: GI bleed Additional Impression: Right sided abdominal pain Scribe Attestation The scribe's documentation has been prepared under my direction and personally reviewed by me in its entirety. I confirm that the note above accurately reflects all work, treatment, procedures, and medical decision making performed by me. Departure Information Dispostion Being Evaluated By Hospitalist Referrals No Doctor, Assigned (PCP) Forms HOME CARE DOCUMENTATION FORM, IMPORTANT VISIT INFORMATION Patient Instructions My [facility] Problem Qualifiers
[2017-10-15] MEDS ORDERED: PANTOprazole INJ 80 MG in DEXTROSE 5% 100ML IV STA (14:09)
--- NOTE | 2017-10-15 14:20 | DIAGNOSTIC IMAGING REPORT ---
CHEST ONE VIEW PORTABLE HISTORY: 57 years-old Male vomiting blood acute hematemesis COMPARISON: Acute abdominal series radiographs 08/30/2017 TECHNIQUE: Portable AP view of the chest FINDINGS: Cardiomediastinal and hilar silhouettes are within normal limits. No pneumothorax, pleural effusion, focal airspace consolidation or overt pulmonary edema. The bones of the chest appear grossly intact. IMPRESSION: No acute process. The above report was generated using voice recognition software. It may contain grammatical, syntax or spelling errors. Electronically signed by: Prashanth Batres M.D. 10/15/2017 2:18 PM Dictated Date/Time: 10/15/2017 2:17 PM
[2017-10-15] MEDS ORDERED: PANTOprazole INJ 40 MG in DEXTROSE 5% 100ML IV SCH (14:30)
[2017-10-15 14:38] LABS: BASO % 0.2 %; BASO ABS # 0.01 K/uL (0-0.2); EOS % 1.8 %; EOS ABS # 0.12 K/uL (0-0.5); HEMATOCRIT 41.7 % (42-52); HEMOGLOBIN 14.6 g/dL (14.0-18.0); IG# 0.01 K/uL (0.00-0.02); LYMPH % 17.5 %; LYMPH ABS # 1.15 K/uL (1.2-3.4); MEAN CELL VOLUME 85.8 fL (80-100); MEAN PLATELET VOLUME 9.8 fL (7.4-10.4); MONO % 9.4 %; MONO ABS # 0.62 K/uL (0.11-0.59); NEUT % 70.9 %; NEUT ABS # 4.68 K/uL (1.4-6.5); PLATELET COUNT 218 K/uL (130-400); RED CELL DISTRIBUTION WIDTH CV 12.5 % (11.5-14.5); RED CELL DISTRIBUTION WIDTH SD 39.6 fL (36.4-46.3); WHITE BLOOD COUNT 6.59 K/uL (4.8-10.8)
[2017-10-15 15:16] LABS: ALBUMIN 4.4 gm/dl (3.4-5.0); CREATININE 0.87 mg/dl (0.60-1.40); POTASSIUM 3.7 mmol/L (3.5-5.1); TOTAL PROTEIN 7.4 gm/dl (6.4-8.2)
--- NOTE | 2017-10-15 15:49 | History and Physical ---
History & Physical Date & Time of Service: Oct 15, 2017 at 15:48 Chief Complaint: Gi Bleeding, Vomiting Blood, Severe Pain Primary Care Physician: No Doctor, Assigned History of Present Illness Source: patient [id number] male with past medical history of gastric ulcer disease, Diverticulosis, hypertension, coronary artery disease, right hip avascular necrosis, chronic narcotic use and other problems presents with history of hematemesis and melena. Patient states that he woke up at around 3 AM this morning with severe nausea and had an episode of vomiting with blood-streaked vomitus. At around 6:30 AM he had 2 more episodes of bloody vomitus and had a black colored loose BM. Patient states that later today he had 2 more black colored stools which prompted him to visit ED. She reports having generalized abdominal pain, sharp pain, non radiating, predominantly RUQ and B/L LQ, with no aggravating/relieving factors, 7/10 intensity. He was heme positive in ED. Reports associated mild dizziness. Denies any aspirin, NSAIDs use and he is not on any blood thinners. Last endoscopy in July 2017 showed non bleeding gastric ulcer and clips were placed. Patient was advised to get repeat EGD in 2 months but patient states he he did not get it done as advised. Denies alcohol use. Denies any history of chest pain, SOB, fever, chills, trauma, dysuria, hematuria , recent antibiotic use Past Medical/Surgical History Medical Problems: (1) Abdominal pain (2) Atypical chest pain (3) CAD (coronary artery disease) (4) Chest pain (5) GERD (gastroesophageal reflux disease) (6) GI bleed (7) GI bleed (8) HTN (hypertension) (9) Osteoarthritis (10) Rectal bleed (11) Rectal bleeding (12) Rectal bleeding (13) UGIB (upper gastrointestinal bleed) (14) Upper GI bleed Surgical Problems: (1) H/O vasectomy (2) History of bilateral knee replacement (3) History of tonsillectomy and adenoidectomy (4) Hx of appendectomy (5) Hx of cholecystectomy (6) Hx of vasectomy (7) S/P appendectomy (8) S/P cholecystectomy (9) S/P knee replacement Family History Diabetes mellitus FATHER FH: CAD (coronary artery disease) FATHER FH: COPD (chronic obstructive pulmonary disease) MOTHER FH: cancer MOTHER (pancreatitic CA) Gallbladder disease Hypertension Lung disease Reviewed as above Social History Smoking Status: Never Smoker Alcohol Use: none Drug Use: none Marital Status: in relationship Occupational Status: employed Allergies Coded Allergies: Ketorolac Tromethamine (Verified Allergy, Unknown, SHORTNESS OF BREATH, RASH, 10/15/17) Home Medications Scheduled Atenolol (Tenormin), 25 MG PO QAM Lisinopril (Zestril), 20 MG PO QAM Pantoprazole (Protonix), 40 MG PO BID Scheduled PRN Oxycodone Ir (Roxicodone Ir), 5 MG PO Q4H PRN for Severe Pain Review of Systems See HPI for pertinent positives & negatives. A total of 10 systems reviewed and were otherwise negative. Physical Exam Vital Signs Date Time Temp Pulse Resp B/P (MAP) Pulse Ox O2 Delivery O2 Flow Rate FiO2 10/15/17 15:10 69 20 98 10/15/17 15:01 128/85 10/15/17 14:40 64 16 97 10/15/17 14:40 64 10/15/17 14:38 132/105 10/15/17 12:48 36.8 71 20 147/89 98 Room Air General Appearance: WD/WN, no apparent distress Head: normocephalic, atraumatic Eyes: normal inspection, PERRL, EOMI ENT: normal ENT inspection, hearing grossly normal Neck: supple, trachea midline Respiratory/Chest: chest non-tender, lungs clear, normal breath sounds, no respiratory distress, no accessory muscle use Cardiovascular: regular rate, rhythm, no edema, no murmur Abdomen/GI: normal bowel sounds, soft, + tenderness (Generalized), + guarding ( Voluntary) Back: normal inspection 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: 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, no motor/sensory deficits, alert, normal mood/affect, oriented x 3 Skin: normal color, warm/dry Diagnostics Laboratory Results Results Past 24 Hours Test 10/15/17 00:00 10/15/17 14:24 Range/Units Urine Color YELLOW Urine Appearance CLEAR CLEAR Urine pH 5.5 4.5-7.5 Urine Specific [place] 1.017 1.000-1.030 Urine Protein NEG NEG Urine Glucose (UA) NEG NEG Urine Ketones NEG NEG Urine Occult Blood NEG NEG Urine Nitrite NEG NEG Urine Bilirubin NEG NEG Urine Urobilinogen NEG NEG Urine Leukocyte Esterase NEG NEG White Blood Count 6.59 4.8-10.8 K/uL Red Blood Count 4.86 4.7-6.1 M/uL Hemoglobin 14.6 14.0-18.0 g/dL Hematocrit 41.7 42-52 % Mean Corpuscular Volume 85.8 80-100 fL Mean Corpuscular Hemoglobin 30.0 25-34 pg Mean Corpuscular Hemoglobin Concent 35.0 32-36 g/dl Platelet Count 218 130-400 K/uL Mean Platelet Volume 9.8 7.4-10.4 fL Neutrophils (%) (Auto) 70.9 % Lymphocytes (%) (Auto) 17.5 % Monocytes (%) (Auto) 9.4 % Eosinophils (%) (Auto) 1.8 % Basophils (%) (Auto) 0.2 % Neutrophils # (Auto) 4.68 1.4-6.5 K/uL Lymphocytes # (Auto) 1.15 1.2-3.4 K/uL Monocytes # (Auto) 0.62 0.11-0.59 K/uL Eosinophils # (Auto) 0.12 0-0.5 K/uL Basophils # (Auto) 0.01 0-0.2 K/uL RDW Standard Deviation 39.6 36.4-46.3 fL RDW Coefficient of Variation 12.5 11.5-14.5 % Immature Granulocyte % (Auto) 0.2 % Immature Granulocyte # (Auto) 0.01 0.00-0.02 K/uL Sodium Level 141 136-145 mmol/L Potassium Level 3.7 3.5-5.1 mmol/L Chloride Level 108 98-107 mmol/L Carbon Dioxide Level 29 21-32 mmol/L Anion Gap 4.0 3-11 mmol/L Blood Urea Nitrogen 16 7-18 mg/dl Creatinine 0.87 0.60-1.40 mg/dl Est Creatinine Clear Calc Drug Dose 116.3 ml/min Estimated GFR () 111.8 Estimated GFR (Non- 96.5 BUN/Creatinine Ratio 18.2 10-20 Random Glucose 80 70-99 mg/dl Calcium Level 9.0 8.5-10.1 mg/dl Total Bilirubin 0.4 0.2-1 mg/dl Aspartate Amino Transf (AST/SGOT) 13 15-37 U/L Alanine Aminotransferase (ALT/SGPT) 29 12-78 U/L Alkaline Phosphatase 64 45-117 U/L Total Protein 7.4 6.4-8.2 gm/dl Albumin 4.4 3.4-5.0 gm/dl Globulin 3.0 2.5-4.0 gm/dl Albumin/Globulin Ratio 1.4 0.9-2 Lipase 105 73-393 U/L Diagnostic Radiology CXR: No acute process CT ABD: 1. There are no acute infectious or inflammatory findings in the abdomen or pelvis. 2. Moderate colonic diverticulosis without CT evidence of acute diverticulitis. 3. Mild splenomegaly. 4. There is evidence of avascular necrosis involving the right femoral head. 5. Additional findings as above. Impression Assessment and Plan Acute GI bleed/Melena Likely secondary to Peptic Ulcer Disease/Diverticulosis Last endoscopy in July 2017 showed non bleeding gastric ulcer and clips were placed. Patient was advised to get repeat EGD in 2 months during prior admission but patient did not get it done Check coags Monitor H&H Transfuse PRBCs as needed Avoids NSAIDs Started on IV Protonix ggt NPO , IV fluids GI consulted H/O gastric ulcer disease continue Protonix as above Diverticulosis No signs of Diverticulitis on CT No Abx Hypertension Elevated, likely situational Labetalol PRN Resume PO home meds as able H/O CAD Denies chest pain H/O Right hip avascular necrosis No acute issues Chronic narcotic use Cautious use of Narcotics DVT Px: SCDs Code Status: Full Code Disposition: Admit in Tele Resuscitation Status VTE Prophylaxis Will order VTE Prophylaxis: Yes
[2017-10-15 16:26] VITALS: O2SAT 100; Ht 177.8 cm; Wt 108.7 kg
[2017-10-15] MEDS ORDERED: PANT40TA PO (16:29)
[2017-10-15] MEDS ORDERED: DICY10CA12 PO (16:29)
[2017-10-15] MEDS ORDERED: ONDANSETRON INJ 2 MG/ML 2 ML VIAL IV PRN (16:30)
[2017-10-15] MEDS ORDERED: ACETAMINOPHEN 325 MG TAB PO PRN (16:30)
[2017-10-15] MEDS ORDERED: LABETALOL HCL IV 5 MG/ML 20ML IV PRN (16:45)
[2017-10-15 17:06] LABS: HEMATOCRIT 37.7 % (42-52); HEMOGLOBIN 13.3 g/dL (14.0-18.0)
[2017-10-15 17:18] VITALS: O2SAT 100
--- NOTE | 2017-10-15 17:43 | DIAGNOSTIC IMAGING REPORT ---
CT SCAN OF THE ABDOMEN AND PELVIS WITHOUT IV CONTRAST CLINICAL HISTORY: Generalized abdominal pain. COMPARISON STUDY: Abdominal CT dated 08/05/2017. TECHNIQUE: CT scan of the abdomen and pelvis is performed from the lung bases to the proximal femora. Images are reviewed in the axial, sagittal, and coronal planes. IV contrast was not administered for this examination as per the referring clinician. Note that the examination was performed in suboptimal fashion without oral and IV contrast. A dose lowering technique was utilized adhering to the principles of ALARA. CT DOSE: 1255.13 mGy.cm FINDINGS: Lung bases: The heart is top normal in size and without pericardial effusion. The lung bases are clear. There is a small hiatal hernia. Liver: The unenhanced liver is normal in size, contour, and attenuation. There is no intrahepatic biliary ductal dilatation. Gallbladder: Surgically absent noting clips in the gallbladder fossa. Spleen: Spleen is mildly enlarged measuring 14.3 cm in length. Pancreas: The unenhanced pancreas is grossly unremarkable. Adrenal glands: Unremarkable. Kidneys: The unenhanced kidneys are normal in size and without hydronephrosis. There are no renal calculi identified. There is no evidence of contour deforming renal mass lesion. Abdominal vasculature: The abdominal aorta is normal in course and caliber. Bowel: There is moderate colonic fecal retention. No bowel obstruction is seen. There is moderate colonic diverticulosis without CT evidence of acute diverticulitis. The appendix is not identified and reported surgically absent. Peritoneum: There is no intraperitoneal free air or abdominal ascites. There is a fat-containing umbilical hernia. Lymphadenopathy: None. Pelvic viscera: The prostate gland is normal as imaged. The bladder is decompressed and grossly unremarkable. Skeletal structures: No lytic or blastic lesions are seen. There are findings of avascular necrosis involving the right femoral head. IMPRESSION: 1. There are no acute infectious or inflammatory findings in the abdomen or pelvis. 2. Moderate colonic diverticulosis without CT evidence of acute diverticulitis. 3. Mild splenomegaly. 4. There is evidence of avascular necrosis involving the right femoral head. 5. Additional findings as above. Electronically signed by: Sedrick Francis M.D. 10/15/2017 5:42 PM Dictated Date/Time: 10/15/2017 5:36 PM
[2017-10-15] MEDS: MoRPHine SULFATE 2 MG/ML CARP IV PRN ×2 (18:03→22:17)
[2017-10-15] MEDS: SODIUM CHLORIDE 0.9% 1000ML 1,000 ML IV SCH (18:03)
[2017-10-15 18:32] LABS: INR 1.1 (0.9-1.1); PTT PATIENT 26.1 SECONDS (21.0-31.0)
[2017-10-15 19:41] VITALS: BP 133/78; PULSE 58; TEMP 36.5; O2SAT 96
[2017-10-15] MEDS: PANTOprazole INJ 40 MG in DEXTROSE 5% 100ML IV SCH (19:58)
[2017-10-15 22:46] LABS: HEMATOCRIT 36.6 % (42-52); HEMOGLOBIN 12.8 g/dL (14.0-18.0)
[2017-10-15 23:32] VITALS: BP 115/71; PULSE 57; TEMP 36.5; O2SAT 98
[2017-10-16] MEDS: PANTOprazole INJ 40 MG in DEXTROSE 5% 100ML IV SCH ×3 (00:07→09:34)
[2017-10-16] MEDS: SODIUM CHLORIDE 0.9% 1000ML 1,000 ML IV SCH (02:19)
[2017-10-16] MEDS: MoRPHine SULFATE 2 MG/ML CARP IV PRN ×2 (03:27→07:40)
[2017-10-16 04:14] VITALS: BP 120/79; PULSE 54; TEMP 36.7; O2SAT 97
[2017-10-16 04:50] LABS: CALCIUM 7.9 mg/dl (8.5-10.1); CREATININE 0.89 mg/dl (0.60-1.40); POTASSIUM 3.7 mmol/L (3.5-5.1)
[2017-10-16 05:28] LABS: HEMATOCRIT 36.2 % (42-52); HEMOGLOBIN 12.6 g/dL (14.0-18.0); MEAN CELL VOLUME 86.6 fL (80-100); MEAN CORPUSCULAR HEMOGLOBIN 30.1 pg (25-34); MEAN CORPUSCULAR HGB CONC 34.8 g/dl (32-36); MEAN PLATELET VOLUME 9.9 fL (7.4-10.4); PLATELET COUNT 165 K/uL (130-400); RED CELL DISTRIBUTION WIDTH CV 12.7 % (11.5-14.5); RED CELL DISTRIBUTION WIDTH SD 40.1 fL (36.4-46.3); WHITE BLOOD COUNT 4.59 K/uL (4.8-10.8)
[2017-10-16 07:47] VITALS: BP 126/68; PULSE 66; TEMP 36.8; O2SAT 98
--- NOTE | 2017-10-16 08:33 | Gastrointestinal Consultation ---
Gastrointestinal Consultation Date of Consultation: Oct 16, 2017 Attending Physician: Dr. Monroe Consulting Physician: Dr. Olson Reason for Consultation: GI BLeed History of Present Illness Patient is a 57 year old male patient of [facility], with a hx of HTN, CAD, who has been cared for by our GI group previously during prior [facility] admission for gastric ulcers. He presented to the ED here at [facility] yesterday for vomiting blood and blood in the stool and severe abdominal pain. GI is consulted for GI bleed. Regarding his hx of gastric ulcers, he underwent EGD here in July by Dr. Jarrett with a large, non bleeding gastric ulcer with placement of two endoscopic clips. He has not yet undergone recheck EGD. He is maintained on BID Protonix 40mg. He is on chronic narcotics at home for avascular necrosis of the right hip. The pt reports a sudden onset of pain nausea at 3AM yesterday morning. He soon vomiting food with small amts of bright red blood. Around 6AM he had upper abdomen pain and he passed a bloody BM. Soon after, he vomited again and passed a black loose BM with some bright red blood. He has had dizziness and weakness as well. On arrival here, Hb was 14.6 and has decreased to 12.6 today. BUN is normal. He continues with abdominal pain, nausea. He has not had any BMs or vomiting since arrival. Past Medical/Surgical History Medical Problems: (1) Atypical chest pain Status: Acute (2) GI bleed Status: Acute (3) GI bleed Status: Acute (4) Rectal bleed Status: Acute (5) Right sided abdominal pain Status: Acute (6) Upper GI bleed Status: Acute Past Medical History: (1) Abdominal pain (2) Atypical chest pain (3) CAD (coronary artery disease) (4) Chest pain (5) GERD (gastroesophageal reflux disease) (6) GI bleed (7) GI bleed (8) HTN (hypertension) (9) Osteoarthritis (10) Rectal bleed (11) Rectal bleeding (12) Rectal bleeding (13) UGIB (upper gastrointestinal bleed) (14) Upper GI bleed Past Surgical History: (1) H/O vasectomy (2) History of bilateral knee replacement (3) History of tonsillectomy and adenoidectomy (4) Hx of appendectomy (5) Hx of cholecystectomy (6) Hx of vasectomy (7) S/P appendectomy (8) S/P cholecystectomy (9) S/P knee replacement Family History Diabetes mellitus FATHER FH: CAD (coronary artery disease) FATHER FH: COPD (chronic obstructive pulmonary disease) MOTHER FH: cancer MOTHER (pancreatitic CA) Gallbladder disease Hypertension Lung disease Social History Smoking Status: Never Smoker Alcohol Use: none Drug Use: none Marital Status: in relationship Housing Status: lives with significant other Occupation Status: employed Allergies Coded Allergies: Ketorolac Tromethamine (Verified Allergy, Unknown, SHORTNESS OF BREATH, RASH, 10/15/17) Current Medications Home Meds and Scripts Medications Dose Route/Sig Max Daily Dose Days Date Category Protonix (Pantoprazole Sodium) 40 Mg Tab 40 Mg PO BID 10/15/17 Reported Roxicodone Ir (Oxycodone HCl) 5 Mg Tab 5 Mg PO Q4H PRN 01/17/17 Reported Tenormin (Atenolol) 25 Mg Tab 25 Mg PO QAM 01/17/17 Reported Zestril (Lisinopril) 20 Mg Tab 20 Mg PO QAM 01/17/17 Reported Review of Systems Constitutional: No fever, No chills, No sweats, No weight loss, No weakness Eyes: No eye pain, No redness ENT: No sore throat, No trouble swallowing, No pain on swallowing Respiratory: No cough, No wheezing, No shortness of breath, No dyspnea on exertion Cardiac: No chest pain, No edema, No palpitations Abdomen: + see HPI, + pain, + nausea, + vomiting, + GI bleeding, No diarrhea, No constipation Neuro: No memory loss, No weakness, No numbness/tingling, No vertigo, No balance problems Psych: No depression symptoms, No anxiety, No insomnia Heme: No abnormal bleeding/bruising, No night sweats Endo: No excessive thirst, No excessive urination Skin: No rash, No itch, No new/changing skin lesions, No jaundice Physical Exam Date Time Temp Pulse Resp B/P (MAP) Pulse Ox O2 Delivery O2 Flow Rate FiO2 10/16/17 07:47 36.8 66 18 126/68 (87) 98 10/16/17 04:14 36.7 54 18 120/79 (93) 97 Room Air 10/15/17 23:32 36.5 57 18 115/71 (86) 98 Room Air 10/15/17 20:00 Room Air 10/15/17 19:41 36.5 58 20 133/78 (96) 96 Room Air 10/15/17 18:21 Room Air 10/15/17 17:18 36.8 59 12 137/87 100 10/15/17 17:02 137/87 10/15/17 16:45 59 12 100 10/15/17 16:31 145/85 10/15/17 16:26 100 Room Air 10/15/17 16:15 73 16 100 10/15/17 16:01 138/83 10/15/17 15:45 61 20 100 10/15/17 15:32 168/99 10/15/17 15:30 62 12 168/99 100 Room Air 10/15/17 15:15 60 13 100 10/15/17 15:10 69 20 98 10/15/17 15:01 128/85 10/15/17 14:40 64 16 97 10/15/17 14:40 64 10/15/17 14:38 132/105 10/15/17 12:48 36.8 71 20 147/89 98 Room Air General Appearance: + mild distress Eyes: normal inspection, EOMI Neck: supple, no adenopathy, thyroid normal Respiratory/Chest: chest non-tender, lungs clear, normal breath sounds, no accessory muscle use Cardiovascular: regular rate, rhythm, no JVD, no murmur Abdomen: normal bowel sounds, soft, no organomegaly, + tenderness (epigastric) Extremities: normal inspection, no pedal edema, normal capillary refill 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: alert, normal mood/affect, oriented x 3 Skin: normal color, no jaundice, warm/dry, no rash Laboratory Results Last 24 Hours Test 10/15/17 14:24 10/15/17 16:42 10/15/17 22:26 10/16/17 04:22 White Blood Count 6.59 K/uL 4.59 K/uL Red Blood Count 4.86 M/uL 4.18 M/uL Hemoglobin 14.6 g/dL 13.3 g/dL 12.8 g/dL 12.6 g/dL Hematocrit 41.7 % 37.7 % 36.6 % 36.2 % Mean Corpuscular Volume 85.8 fL 86.6 fL Mean Corpuscular Hemoglobin 30.0 pg 30.1 pg Mean Corpuscular Hemoglobin Concent 35.0 g/dl 34.8 g/dl Platelet Count 218 K/uL 165 K/uL Mean Platelet Volume 9.8 fL 9.9 fL Neutrophils (%) (Auto) 70.9 % Lymphocytes (%) (Auto) 17.5 % Monocytes (%) (Auto) 9.4 % Eosinophils (%) (Auto) 1.8 % Basophils (%) (Auto) 0.2 % Neutrophils # (Auto) 4.68 K/uL Lymphocytes # (Auto) 1.15 K/uL Monocytes # (Auto) 0.62 K/uL Eosinophils # (Auto) 0.12 K/uL Basophils # (Auto) 0.01 K/uL RDW Standard Deviation 39.6 fL 40.1 fL RDW Coefficient of Variation 12.5 % 12.7 % Immature Granulocyte % (Auto) 0.2 % Immature Granulocyte # (Auto) 0.01 K/uL Prothrombin Time 11.1 SECONDS Prothromb Time International Ratio 1.1 Activated Partial Thromboplast Time 26.1 SECONDS Partial Thromboplastin Ratio 1.0 Sodium Level 141 mmol/L 142 mmol/L Potassium Level 3.7 mmol/L 3.7 mmol/L Chloride Level 108 mmol/L 112 mmol/L Carbon Dioxide Level 29 mmol/L 26 mmol/L Anion Gap 4.0 mmol/L 4.0 mmol/L Blood Urea Nitrogen 16 mg/dl 14 mg/dl Creatinine 0.87 mg/dl 0.89 mg/dl Est Creatinine Clear Calc Drug Dose 116.3 ml/min 113.7 ml/min Estimated GFR () 111.8 110.8 Estimated GFR (Non- 96.5 95.6 BUN/Creatinine Ratio 18.2 15.5 Random Glucose 80 mg/dl 86 mg/dl Calcium Level 9.0 mg/dl 7.9 mg/dl Total Bilirubin 0.4 mg/dl Aspartate Amino Transf (AST/SGOT) 13 U/L Alanine Aminotransferase (ALT/SGPT) 29 U/L Alkaline Phosphatase 64 U/L Total Protein 7.4 gm/dl Albumin 4.4 gm/dl Globulin 3.0 gm/dl Albumin/Globulin Ratio 1.4 Lipase 105 U/L Impression Patient is a 57 year old male with melena, hematochezia, hematemesis. He has a hx of gastric ulcers, this is worrisome for a UGI bleed from a gastric ulcer. Plan 1. EGD today. 2. Continue Protonix drip. 3. Continue NPO. ATTESTATION: I have performed a history and physical examination of this patient and reviewed the electronic record. Specifically on physical examination there is mild epigastric tenderness. I have discussed the case with HUEY Mathews. The above note reflects my findings, conclusions, and recommendations. Himanshu Olson MD
[2017-10-16 10:26] LABS: HEMATOCRIT 38.5 % (42-52); HEMOGLOBIN 13.2 g/dL (14.0-18.0)
[2017-10-16 11:50] VITALS: BP 154/94; PULSE 62; TEMP 36.8; O2SAT 96
[2017-10-16] MEDS ORDERED: FENTANYL CITRATE INJ 50 MCG/1 ML 2 ML VIAL ONE (12:50)
[2017-10-16] MEDS ORDERED: PROPOFOL IV EMULSION 10 MG/ML 20 ML VIAL ONE (13:05)
--- NOTE | 2017-10-16 13:12 | GI REPORT ---
Patient Name: Patrice Cr Procedure Date: 10/16/2017 12:57 PM Date of : 1960 Admit Type: Inpatient Age: 57 Gender: Male Attending MD: Himanshu Olson MD Procedure: Upper GI endoscopy Providers: Himanshu Olson MD Referring MD: Jesus Jarrett MD, Imtiaz Monroe Md Indications: Hematemesis, Follow-up of acute gastric ulcer with hemorrhage Medicines: Propofol per Anesthesia Complications: No immediate complications. Estimated blood loss: None. Estimated Blood Loss: Estimated blood loss: none. Procedure: Pre-Anesthesia Assessment: - Prior to the procedure, a History and Physical was performed, and patient medications, allergies and sensitivities were reviewed. The patient's tolerance of previous anesthesia was reviewed. - ASA Grade Assessment: II - A patient with mild systemic disease. After obtaining informed consent, the endoscope was passed under direct vision. Throughout the procedure, the patient's blood pressure, pulse, and oxygen saturations were monitored continuously. The scope was introduced through the mouth, and advanced to the third part of duodenum. The upper GI endoscopy was accomplished with ease. The patient tolerated the procedure well. Findings: The upper third of the esophagus, middle third of the esophagus and lower third of the esophagus were normal. The Z-line was regular and was found 40 cm from the incisors. A small healed ulcer was found in the gastric antrum. Normal mucosa was found in the entire examined stomach. Biopsies were taken with a cold forceps for Helicobacter pylori testing. A small diverticulum was found in the second portion of the duodenum. Impression: - Normal upper third of esophagus, middle third of esophagus and lower third of esophagus. - Z-line regular, 40 cm from the incisors. - Scar in the gastric antrum. - Normal mucosa was found in the entire stomach. Biopsied. - Duodenal diverticulum. Recommendation: - Return patient to [facility] for ongoing care. Himanshu Olson M.D. Himanshu Olson MD 10/16/2017 1:12:35 PM This report has been signed electronically. Note Initiated On: 10/16/2017 12:57 PM Number of Addenda: 0 I attest to the content of the Intraoperative Record and orders documented therein, exceptions below {[id number]}
--- NOTE | 2017-10-16 13:26 | Anesthesiology Progress Note ---
Anesthesia Post Op Note Date & Time Oct 16, 2017 at 13:25 Vital Signs Pain Intensity: 8.0 Vital Signs Past 12 Hours Date Time Temp Pulse Resp B/P (MAP) Pulse Ox O2 Delivery O2 Flow Rate FiO2 10/16/17 13:10 36.0 78 16 129/75 (93) 99 Room Air 10/16/17 11:50 36.8 62 18 154/94 (114) 96 10/16/17 11:48 36.8 61 18 160/83 (108) 99 Room Air 10/16/17 08:00 Room Air 10/16/17 07:47 36.8 66 18 126/68 (87) 98 10/16/17 04:14 36.7 54 18 120/79 (93) 97 Room Air Notes Mental Status: alert / awake / arousable, participated in evaluation Pt Amnestic to Procedure: Yes Nausea / Vomiting: adequately controlled Pain: adequately controlled Airway Patency, RR, SpO2: stable & adequate BP & HR: stable & adequate Hydration State: stable & adequate Anesthetic Complications: no major complications apparent
[2017-10-16 15:26] VITALS: BP 155/84; PULSE 60; TEMP 36.8; O2SAT 99
--- NOTE | 2017-10-16 15:57 | Progress Note ---
Internal Med Progress Note Date of Service: Oct 16, 2017. Provider Documentation: SUBJECTIVE: Seen and examined at bedside Doing well today No bleeding issues since hospitalization Had EGD today No complaints Discussed with GI today OBJECTIVE: Vital Signs-as noted below General Appearance: WD/WN, no apparent distress Head: normocephalic, atraumatic Eyes: normal inspection, PERRL, EOMI ENT: normal ENT inspection, hearing grossly normal Neck: supple, trachea midline Respiratory/Chest: chest non-tender, lungs clear, normal breath sounds, no respiratory distress, no accessory muscle use Cardiovascular: regular rate, rhythm, no edema, no murmur Abdomen/GI: normal bowel sounds, soft, Non tender Back: normal inspection 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 ASSESSMENT & PLAN: Acute GI bleed/Melena Likely secondary to Peptic Ulcer Disease/Diverticulosis Last endoscopy in July 2017 showed non bleeding gastric ulcer and clips were placed. Patient was advised to get repeat EGD in 2 months during prior admission but patient did not get it done coags normal H&H stable Avoids NSAIDs IV Protonix ggt>>>PO BID DC IV fluids Resume diet Appreciate GI Input S/P EGD: - Normal upper third of esophagus, middle third of esophagus and lower third of esophagus. - Z-line regular, 40 cm from the incisors. - Scar in the gastric antrum. - Normal mucosa was found in the entire stomach. Biopsied. - Duodenal diverticulum. Recommendation: - Return patient to [facility] care. Advised patient to get colonoscopy as outpatient H/O gastric ulcer disease continue Protonix Diverticulosis No signs of Diverticulitis on CT No Abx Hypertension continue home meds H/O CAD Denies chest pain H/O Right hip avascular necrosis No acute issues Chronic narcotic use Cautious use of Narcotics DVT Px: SCDs Code Status: Full Code Disposition: Plan to discharge home today Follow up with your Primary Care Physician in 1 week Follow up with your Plum Packer for colonoscopy as outpatient as advised Seek immediate medical attention if your symptoms reoccur or worsen continue Protonix as advised Vital Signs: Date Time Temp Pulse Resp B/P (MAP) Pulse Ox O2 Delivery O2 Flow Rate FiO2 10/16/17 13:40 58 20 142/87 (105) 98 Room Air 10/16/17 13:25 62 18 135/78 (97) 98 Room Air 10/16/17 13:10 36.0 78 16 129/75 (93) 99 Room Air 10/16/17 11:50 36.8 62 18 154/94 (114) 96 10/16/17 11:48 36.8 61 18 160/83 (108) 99 Room Air 10/16/17 08:00 Room Air 10/16/17 07:47 36.8 66 18 126/68 (87) 98 10/16/17 04:14 36.7 54 18 120/79 (93) 97 Room Air 10/15/17 23:32 36.5 57 18 115/71 (86) 98 Room Air 10/15/17 20:00 Room Air 10/15/17 19:41 36.5 58 20 133/78 (96) 96 Room Air 10/15/17 18:21 Room Air 10/15/17 17:18 36.8 59 12 137/87 100 10/15/17 17:02 137/87 10/15/17 16:45 59 12 100 10/15/17 16:31 145/85 10/15/17 16:26 100 Room Air 10/15/17 16:15 73 16 100 10/15/17 16:01 138/83 Lab Results: Results Past 24 Hours Test 10/15/17 16:42 10/15/17 22:26 10/16/17 04:22 10/16/17 10:18 Range/Units Hemoglobin 13.3 12.8 12.6 13.2 14.0-18.0 g/dL Hematocrit 37.7 36.6 36.2 38.5 42-52 % White Blood Count 4.59 4.8-10.8 K/uL Red Blood Count 4.18 4.7-6.1 M/uL Mean Corpuscular Volume 86.6 80-100 fL Mean Corpuscular Hemoglobin 30.1 25-34 pg Mean Corpuscular Hemoglobin Concent 34.8 32-36 g/dl RDW Standard Deviation 40.1 36.4-46.3 fL RDW Coefficient of Variation 12.7 11.5-14.5 % Platelet Count 165 130-400 K/uL Mean Platelet Volume 9.9 7.4-10.4 fL Sodium Level 142 136-145 mmol/L Potassium Level 3.7 3.5-5.1 mmol/L Chloride Level 112 98-107 mmol/L Carbon Dioxide Level 26 21-32 mmol/L Anion Gap 4.0 3-11 mmol/L Blood Urea Nitrogen 14 7-18 mg/dl Creatinine 0.89 0.60-1.40 mg/dl Est Creatinine Clear Calc Drug Dose 113.7 ml/min Estimated GFR () 110.8 Estimated GFR (Non- 95.6 BUN/Creatinine Ratio 15.5 10-20 Random Glucose 86 70-99 mg/dl Calcium Level 7.9 8.5-10.1 mg/dl
--- NOTE | 2017-10-16 15:59 | Discharge Summary ---
Discharge Summary Date of Service Oct 16, 2017. Discharge Summary Admission Date: Oct 15, 2017 at 16:29 Discharge Date: Oct 16, 2017 Discharge Disposition: Home Principal Diagnosis: GI bleed Procedures: CT ABD: 1. There are no acute infectious or inflammatory findings in the abdomen or pelvis. 2. Moderate colonic diverticulosis without CT evidence of acute diverticulitis. 3. Mild splenomegaly. 4. There is evidence of avascular necrosis involving the right femoral head. 5. Additional findings as above. CXR: No acute process. EGD: Normal upper third of esophagus, middle third of esophagus and lower third of esophagus. - Z-line regular, 40 cm from the incisors. - Scar in the gastric antrum. - Normal mucosa was found in the entire stomach. Biopsied. - Duodenal diverticulum. Recommendation: - Return patient to [facility] for ongoing care. Consultations: GI Pending Studies/Follow-Up: Follow up with your Primary Care Physician in 1 week Follow up with your Control Systems Engineer for colonoscopy as outpatient as advised Seek immediate medical attention if your symptoms reoccur or worsen continue Protonix as advised Medication Reconciliation Continued Medications: Atenolol (Tenormin) 25 Mg Tab 25 MG PO QAM Lisinopril (Zestril) 20 Mg Tab 20 MG PO QAM Oxycodone Ir (Roxicodone Ir) 5 Mg Tab 5 MG PO Q4H PRN for Severe Pain Pantoprazole (Protonix) 40 Mg Tab 40 MG PO BID Admission Information HPI (per Admitting provider): [id number] male with past medical history of gastric ulcer disease, Diverticulosis, hypertension, coronary artery disease, right hip avascular necrosis, chronic narcotic use and other problems presents with history of hematemesis and melena. Patient states that he woke up at around 3 AM this morning with severe nausea and had an episode of vomiting with blood-streaked vomitus. At around 6:30 AM he had 2 more episodes of bloody vomitus and had a black colored loose BM. Patient states that later today he had 2 more black colored stools which prompted him to visit ED. She reports having generalized abdominal pain, sharp pain, non radiating, predominantly RUQ and B/L LQ, with no aggravating/relieving factors, 7/10 intensity. He was heme positive in ED. Reports associated mild dizziness. Denies any aspirin, NSAIDs use and he is not on any blood thinners. Last endoscopy in July 2017 showed non bleeding gastric ulcer and clips were placed. Patient was advised to get repeat EGD in 2 months but patient states he he did not get it done as advised. Denies alcohol use. Denies any history of chest pain, SOB, fever, chills, trauma, dysuria, hematuria , recent antibiotic use Physical Exam (per Admitting): General Appearance: WD/WN, no apparent distress Head: normocephalic, atraumatic Eyes: normal inspection, PERRL, EOMI ENT: normal ENT inspection, hearing grossly normal Neck: supple, trachea midline Respiratory/Chest: chest non-tender, lungs clear, normal breath sounds, no respiratory distress, no accessory muscle use Cardiovascular: regular rate, rhythm, no edema, no murmur Abdomen/GI: normal bowel sounds, soft, + tenderness (Generalized), + guarding (Voluntary) Back: normal inspection 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 Patient was advised to get repeat EGD in 2 months during prior admission but patient did not get it done coags normal H&H stable Avoids NSAIDs IV Protonix ggt>>>PO BID DC IV fluids Resume diet Appreciate GI Input S/P EGD: - Normal upper third of esophagus, middle third of esophagus and lower third of esophagus. - Z-line regular, 40 cm from the incisors. - Scar in the gastric antrum. - Normal mucosa was found in the entire stomach. Biopsied. - Duodenal diverticulum. Recommendation: - Return patient to [facility] for ongoing care. Advised patient to get colonoscopy as outpatient H/O gastric ulcer disease continue Protonix Diverticulosis No signs of Diverticulitis on CT No Abx Hypertension continue home meds H/O CAD Denies chest pain H/O Right hip avascular necrosis No acute issues Chronic narcotic use Cautious use of Narcotics DVT Px: SCDs Code Status: Full Code Disposition: Plan to discharge home today Follow up with your Primary Care Physician in 1 week Follow up with your Control Systems Engineer for colonoscopy as outpatient as advised Seek immediate medical attention if your symptoms reoccur or worsen continue Protonix as advised Total time spent on discharge = 35 minutes This includes examination of the patient, discharge planning, medication reconciliation, and communication with other providers. Discharge Instructions Discharge Instructions Date of Service Oct 16, 2017. Admission Reason for Admission: Gi Bleeding, Abd Pain Discharge Discharge Diagnosis / Problem: GI bleed Discharge Goals Goal(s): Decrease discomfort, Improve function Activity Recommendations Activity Limitations: resume your previous activity Exercise/Sports Limitations: as tolerated . Instructions / Follow-Up Instructions / Follow-Up Follow up with your Primary Care Physician in 1 week Follow up with your Control Systems Engineer for colonoscopy as outpatient as advised Seek immediate medical attention if your symptoms reoccur or worsen continue Protonix as advised Current Hospital Diet Patient's current hospital diet: Regular Diet Discharge Diet Recommended Diet: Regular Diet Procedures Procedures Performed: EGD Pending Studies Studies pending at discharge: no Medical Emergencies . Who to Call and When: Medical Emergencies: If at any time you feel your situation is an emergency, please call 911 immediately. . Non-Emergent Contact Non-Emergency issues call your: Primary Care Provider, Control Systems Engineer Call Non-Emergent contact if: you have a fever, your pain is not controlled, your pain is worsening, your pain is unusual for you, your pain is concerning you, you have any medication questions Seek immediate medical attention if your symptoms reoccur or worsen . . "Provider Documentation" section prepared by Imtiaz Monroe. .
[2017-10-16 16:45] VITALS: BP 155/84; PULSE 60; TEMP 36.8; O2SAT 99
[2017-10-16] MEDS ORDERED: PANTOprazole SOD 40 MG TAB PO SCH (21:00)
== END 2017-10-16 17:00 | disposition home or self-care (01) | DRG 379 ==
LOC: C.EDB 12:41 → C.2T 16:29 → ENRESERV 16:45
PROVIDERS: ADMIT Internal Medicine; ATTEND Internal Medicine
PROC: 0DB68ZX Excision of Stomach, Via Natural or Artificial Opening Endoscopic, Diagnostic (ICD-10-PCS; principal; 2017-10-16 11:45)
DX: K27.4 Chronic or unspecified peptic ulcer, site unspecified, with hemorrhage (principal); K92.1 Melena; I25.10 Atherosclerotic heart disease of native coronary artery without angina pectoris; K21.9 Gastro-esophageal reflux disease without esophagitis; I10 Essential (primary) hypertension; Z79.899 Other long term (current) drug therapy

== ENCOUNTER 2018-03-17 15:07 | Observation (INO) ==
[2018-03-17] MEDS ORDERED: SODIUM CHLORIDE 0.9% 1000ML 1,000 ML IV SCH (16:15)
[2018-03-17] MEDS ORDERED: PANTOprazole 80 MG in DEXTROSE 5% 100 ML IV ONE ×2 (16:16→19:16)
[2018-03-17] MEDS ORDERED: HYDROmorphone INJ 1 MG/ML SYRINGE IV PRN (16:16)
[2018-03-17] MEDS ORDERED: PANTOPRAZOLE BOLUS/DRIP 1 EA IV STA ×2 (16:16→19:16)
[2018-03-17] MEDS ORDERED: ONDANSETRON INJ 2 MG/ML 2 ML VIAL IV STA (16:16)
[2018-03-17 16:50] LABS: Basophils # (auto) 0.04 K/uL (0-0.2); Basophils % (auto) 0.6 %; Hematocrit (blood only) 40.5 % (42-52); Hemoglobin 14.2 g/dL (14.0-18.0); Immature Granulocytes # (auto) 0.02 K/uL (0.00-0.02); Immature Granulocytes % (auto) 0.3 %; Lymphocytes # (auto) 1.27 K/uL (1.2-3.4); Lymphocytes % (auto) 18.8 %; Mean Corpuscular Hgb Conc 35.1 g/dL (32-36); Mean Corpuscular Volume 85.4 fL (80-100); Mean Platelet Volume 9.4 fL (7.4-10.4); Monocytes # (auto) 0.53 K/uL (0.11-0.59); Monocytes % (auto) 7.9 %; Neutrophils # (auto) 4.69 K/uL (1.4-6.5); Neutrophils % (auto) 69.4 %; Platelet Count 220 K/uL (130-400); RDW Coefficient of Variation 12.7 % (11.5-14.5); RDW Standard Deviation 39.3 fL (36.4-46.3); Red Blood Count 4.74 M/uL (4.7-6.1); White Blood Count 6.75 K/uL (4.8-10.8)
[2018-03-17 17:08] LABS: INR 1.2 (0.9-1.1); Partial Thromboplastin Time 25.2 Seconds (21.0-31.0); Prothrombin Time 11.6 Seconds (9.0-12.0)
[2018-03-17 17:09] LABS: Albumin Level 4.3 gm/dl (3.4-5.0); BUN Creatinine Ratio 13.8 (10-20); Calcium 9.1 mg/dl (8.5-10.1); Creatinine Clr Calc Pharmacy 15.8 ml/min; Est GFR (African American) 112.9; Est GFR (Non-African American) 97.4; Potassium 3.9 mmol/L (3.5-5.1)
[2018-03-17 17:12] LABS: Albumin Globulin Ratio 1.4 (0.9-2); Bilirubin,Total 0.3 mg/dl (0.2-1); Total Protein 7.3 gm/dl (6.4-8.2)
[2018-03-17] MEDS: PANTOprazole 40 MG in DEXTROSE 5% 100 ML IV SCH ×3 (17:32→22:21)
--- NOTE | 2018-03-17 18:08 | History & Physical Report ---
Date of Service March 17, 2018 Assessment & Plan (1) GI bleed: This is a 57 year old male with significant PMH of PUD, HTN, R hip avascular necrosis with chronic narcotic use who presents to [facility] secondary to hemetemesis , melena, abdominal pain x 4-5 days. In ED lab revealed WBC 6.75, hemoglobin 14.2, hematocrit 40.5, platelet 220, INR 1.2, sodium 141, potassium 3.9, BUN 12 , creatinine 0.85. On 03/16/17 patient seen in ED H/H was 15.0 and 41.7, heme positive stool. Given labatory evaluation and hemodynamic stablility it was recommended pt have urgent outpatient GI endoscopy. Pt represented today as pt was unable to obtain approp outpt follow up and given persistent sx was recommended by Dr. Jarrett to seek ED for admission and further work up. -admit to med/surg telemetry -consult GI -NPO -PPI bolus and gtt -carafate 1g QID -Zantac 150mg daily -IVF 80cc/hr -H/H 2200 and in a.m. (2) Abdominal pain: -plan as above (3) PUD (peptic ulcer disease): -hx of gastric ulcer in past requiring clip 07/2017 -GI Consulted -plan as above (4) HTN (hypertension): -blood pressure elevated on admission, likely related to pain -continue atenolol, lisinopril -monitor (5) Avascular necrosis of bone of right hip: -chronic -takes oxycodone 5mg po q4hr prn -follows with orthopedic, scheduled for possible R DINA in 05/2018 (6) DVT prophylaxis: -SCDS/TEDS given presumed GIB Disposition: D/C to home when medically able [facility] as indicated Pt seen in collaboration with Dr. Monroe, please see addendum History of Present Illness Chief Complaint: Hemetemesis, melena, abdominal pain x 4-5 days. Primary Care Provider: Harriett Petit MD This is a 57 year old male with significant PMH of PUD, HTN, R hip avascular necrosis with chronic narcotic use who presents to [facility] secondary to hemetemesis , melena, abdominal pain x 4-5 days. Patient was last seen in ED 03/16/17 secondary to above complaints. At that time CBC, CMP, CT abd/pelvis relatively unremarkable. GI was contacted and recommended patient f/u outpatient for urgent scope. Patient called [facility] today and was told he could not be seen until April. Given continued symptoms despite treatment in ED it was recommended by GI to return to ED for admission and work up. Of note patient admitted in past 07/2017 for non bleeding PUD s/p clip by Dr. Jarrett. Further seen in 10/31 for similar sx, repeat EGD showed healing gastric ulcer w/o current bleeding. He takes PPI BID daily and after ED eval yesterday was recommended to begin Carafate QID and Zantac 150mg daily. This was not initiated given patient did not go to pharmacy. Currently he complains of periumbilical abdominal pain, constant, 9/10 on arrival, no 7/10 after analgesia, hemetemsis, melena, nausea, diarrhea, dizziness, lightheaded. He denies f/c/s, chest pain, palpitations, sob, dsyuria , hematuria, increased freq with urination or urgency. Overall appetite has been poor past week, unknown if weight loss. Feels sx have progressively been getting worse. Initially had speckles of blood in vomit, but this morning has diffuse blood in vomit, unsure exactly of quantity. No known sick contacts. Allergies Allergy/AdvReac Type Severity Reaction Status Date / Time ketorolac Allergy Unknown SHORTNESS Verified 03/16/18 14:14 OF BREATH,RASH Home Medications Home Medications Medication Instructions Recorded Confirmed Type atenolol 25 mg PO DAILY 03/16/18 03/17/18 History lisinopril 20 mg PO DAILY 03/16/18 03/17/18 History oxycodone 5 mg PO Q4H PRN 03/16/18 03/17/18 History pantoprazole 40 mg PO BID 03/16/18 03/17/18 History ranitidine HCl [Zantac] 150 mg PO DAILY 03/17/18 03/17/18 History sucralfate [Carafate] 1 g PO ACHS 03/17/18 03/17/18 History Past Med/Surg History Medical History Avascular necrosis of bone of right hip (Chronic) PUD (peptic ulcer disease) (Resolved) GERD (gastroesophageal reflux disease) (Chronic) HTN (hypertension) (Chronic) UGIB (upper gastrointestinal bleed) (Resolved) Osteoarthritis (Chronic) Surgical History S/P tonsillectomy (Resolved) S/P cholecystectomy (Resolved) S/P appendectomy (Resolved) H/O vasectomy (Ruled-out) S/P knee replacement (Resolved) Social History Current Living Situation: Significant Other Other Information That Helps Us Care for You: No Feels Safe at Home: Yes Safety Concerns: Feels Safe At This Time Smoking Status: Never smoker Hx Alcohol Use: No Hx Substance Use: No Beliefs That Will Affect Care: None Preferred Language: Lithuanian Communication Ability: Effective Review of Systems All systems reviewed & are unremarkable except as noted in HPI & below Physical Exam 2 Vital Signs (Past 24 Hours): Last Vital Signs Temp 37.3 C 03/17/18 15:15 Pulse 69 03/17/18 17:05 Resp 16 03/17/18 17:05 BP 170/85 H 03/17/18 17:05 Pulse Ox 98 03/17/18 17:05 Physical Exam: Gen: WD/WN, M/F, NAD, sitting up in bed, pleasant, conversing easily Head: Normocephalic, Atraumatic Eyes: Sclera normal, no conjunctival injection, PERRLA, EOMI ENT: Gross hearing intact, normal pharynx, mucous membranes moist Neck: supple, no adenopathy, No JVD, no bruit, no thyromegaly, Resp: Clear to auscultation b/l, no wheeze, rales, rhonchi. Normal insp/exp effort, no accessory muscle use CV: Regular rate, regular rhythm, no murmur, rub, gallop, or ectopy Abd: +BS x 4, soft, nontender, nondistended Musculoskeletal: moves extremities active rom x 4, strength intact, good rim buster strength Extremities: No edema bilaterally Skin: warm, moist, no rash, negative turgor, cap refill < 2sec Neuro: Alert and oriented x 3, speech normal, good mood/affect, cran nerve 2-12 intact grossly : deferred Results & Data Laboratory Results Short CBC 03/17/18 Range/Units 16:30 WBC 6.75 (4.8-10.8) K/uL Hgb 14.2 (14.0-18.0) g/dL Hct 40.5 L (42-52) % Plt Count 220 (130-400) K/uL BMP 03/17/18 16:30 Sodium 141 Potassium 3.9 Chloride 107 Carbon Dioxide 27 BUN 12 Creatinine 0.85 Glucose 98 Calcium 9.1 Liver Function 03/17/18 Range/Units 16:30 Total Bilirubin 0.3 (0.2-1) mg/dl AST 15 (15-37) U/L ALT 33 (12-78) U/L Alkaline Phosphatase 84 (45-117) U/L Albumin 4.3 (3.4-5.0) gm/dl Diagnostic Findings CT Scan Abd/Pelvis: IMPRESSION: 1. No acute process within the abdomen or pelvis. 2. Colonic diverticulosis without evidence for acute diverticulitis. 3. No bowel obstruction. ECG Rate (beats per minute): 68 Rhythm: normal sinus Additional Comments: QTC 423ms Code Status & VTE Plan Code Status Full Code VTE Prophylaxis Plan VTE Prophylaxis will be ordered: Yes Reason for no VTE drug order: Contraindicated Supervising Physician Co-Signing Physician Notes Patient is a 57 yr male who presents with history of hemetemesis, melena, generalized abdominal pain for 4-5 days duration. Denies any use of aspirin, NSADIs. Please review HPI for complete details. CT ABD is normal. On exam patient is obese, lungs CTA, abd non tender, no edema. Patient is started on IV fluids, Protonix ggt, will be kept NPO. GI is consulted for possible EGD/ Colonoscopy. Monitor H&H. Transfuse PRBCs as needed. I personally reviewed the record. Patient is interviewed and examined at bedside. Patient's care is coordinated with Aditi Humphries PA-C. Please refer to the documentation above for details of patient's presentation and for discussion of other issues. _ (1) GI bleed GI bleed type/associated pathology: unspecified gastrointestinal hemorrhage type Gastritis type: Qualified Code(s): K92.2 - Gastrointestinal hemorrhage, unspecified (2) Abdominal pain Abdominal location: periumbilical Qualified Code(s): R10.33 - Periumbilical pain (3) HTN (hypertension) Hypertension type: unspecified Qualified Code(s): I10 - Essential (primary) hypertension
--- NOTE | 2018-03-17 19:02 | Emergency Department Note ---
Entered by David Snow acting as a scribe for ED Provider Note CHIEF COMPLAINT: hematemesis/rectal bleed HISTORY OF PRESENT ILLNESS: The patient is a 57 year old male who presents to the Emergency Room with complaints of intermittent hematemesis, rectal bleeding, and abdominal pain. The patient was here in the emergency department yesterday for rectal bleeding. He was discharged home and was instructed to follow up with Gastroenterology as soon as possible. Dr. Jarrett and Dr. Tony's office was contacted while the patient was here and were supposed to get the patient in to the office as soon as possible. The patient states that he called their office today and was told that they could not get him in until May 06. The patient states that a short time ago he vomited blood and his abdominal pain worsened again. Pt denies LOC, headache, fevers, chills, diaphoresis, visual changes, neck pain , chest pain, breathing difficulties, urinary symptoms, numbness, weakness, lymphadenopathy, rash, or other complaints. REVIEW OF SYSTEMS: See HPI for pertinent positives and negatives. A total of ten systems were reviewed and were otherwise negative. PMHx/PSHx: PUD GERD Tonsillectomy HTN Rectal Bleed UGIB CAD GI Bleed Cholecystectomy Appendectomy Vasectomy Knee replacement SOCIAL HISTORY: Patient lives at home. PHYSICAL EXAM: GENERAL: Awake, alert, well-appearing, in no distress HENT: Normocephalic, atraumatic. Oropharynx unremarkable. EYES: PERRL. Normal conjunctiva. Sclera non-icteric. NECK: Inspection normal. Non-tender. Supple. No nuchal rigidity. FROM. No masses. RESPIRATORY: Clear to auscultation. No wheezes. No rales. Normal respiratory effort. CARDIAC: Normal rate. Normal rhythm. No murmurs. No rubs. Extremities warm and well perfused. Pulses equal. No JVD. GI: Soft, non-distended. Epigastric tenderness to palpation. No rebound or guarding. No masses. RECTAL: Deferred. MUSCULOSKELETAL: Atraumatic. Chest examination reveals no tenderness. The back is symmetrical on inspection without obvious abnormality. There is no CVA tenderness to palpation. No joint edema. LOWER EXTREMITIES: Calves are equal size bilaterally and non-tender. No edema. No discoloration. NEURO: Normal sensorium. No sensory or motor deficits noted. SKIN: No rash or jaundice noted. EMERGENCY DEPARTMENT COURSE: 1604: Past medical records reviewed. The patient was evaluated in room B6, and a complete history and physical examination were performed. 1633: I reviewed the patient's case with Aditi Humphries - [facility] Hospitalist KIRSTIN. She will evaluate the patient for further management. MEDICAL DECISION MAKING: Prior records/ancillary studies reviewed. Triage Nursing notes reviewed and agree them. The patient's history was concerning for possible gastrointestinal bleeding. Differential diagnosis: Etiologies such as diverticulosis, AVM, coagulopathy, colitis, inflammatory bowel disease, malignancy,Natalie-Man tear, esophagitis, peptic ulcer disease , variceal bleed, gastritis, epistaxis, fissure, hemorrhoids, as well as others were entertained. Physical exam: As above. ER treatment provided: Protonix bolus and drip IV Dilaudid Zofran On reassessment the patient felt better. Diagnostics interpreted by me: ECG: Normal sinus rhythm The labs revealed an unremarkable CBC and chemistry panel. No significant anemia. No elevation of BUN. Imaging studies: Deferred Patient was here yesterday and I saw him for a GI bleed workup. He did have heme positive findings on rectal examination yesterday. I did consult with [facility] gastroenterology to arrange a follow-up for the next day or 2. When he called the clinic he was unable to be seen until 2 months from now despite different arrangements yesterday. Because of this further management in the hospital will be necessary. Consultation: A consultation was placed with the hospitalist. The case was discussed and diagnostics were reviewed. The patient was evaluated in the ER for further treatment. IMPRESSION: GI Bleed. PLAN: Admit to [facility]. The scribe's documentation has been prepared under my direction and personally reviewed by me in its entirety. I confirm that the note above accurately reflects all work, treatment, procedures, and medical decision making performed by me. Impression & Plan GI bleed Past Med/Surg History Medical History Avascular necrosis of bone of right hip (Chronic) PUD (peptic ulcer disease) (Resolved) GERD (gastroesophageal reflux disease) (Chronic) HTN (hypertension) (Chronic) UGIB (upper gastrointestinal bleed) (Resolved) Osteoarthritis (Chronic) Surgical History S/P tonsillectomy (Resolved) S/P cholecystectomy (Resolved) S/P appendectomy (Resolved) H/O vasectomy (Ruled-out) S/P knee replacement (Resolved) Social History Current Living Situation: Significant Other Other Information That Helps Us Care for You: No Feels Safe at Home: Yes Safety Concerns: Feels Safe At This Time Smoking Status: Never smoker Hx Alcohol Use: No Hx Substance Use: No Beliefs That Will Affect Care: None Preferred Language: Uzbek Communication Ability: Effective Results & Data Vital Signs Vital Signs - 24 hr 03/17/18 15:15 03/17/18 16:54 03/17/18 17:05 Temperature 37.3 C Temperature Source Oral Sepsis Recent Fever Within 48 Hours No Sepsis New/Unexplained Change in Mental Status No Sepsis Action Taken by Nursing No Action Required Pulse Rate 76 Pulse Rate [Apical] 69 Pulse Rhythm Regular Pulse Rhythm [Apical] Regular Pulse Strength Normal Pulse Strength [Apical] Normal Respiratory Rate 20 16 Respiratory Effort / Characteristics Non-Labored Non-Labored Respiratory Depth Normal Normal Respiratory Pattern Regular Regular Regular Blood Pressure 194/94 H Blood Pressure [Right Arm] 170/85 H Blood Pressure Mean 127 Blood Pressure Mean [Right Arm] 113 Blood Pressure Position Sitting Blood Pressure Position [Right Arm] Lying Pulse Oximetry 96 98 Oxygen Delivery Method Room Air Room Air Room Air Home Medications Current Medication List: was personally reviewed by me Laboratory Data Attestation: I reviewed the patient's lab results. Result diagrams: 03/17/18 16:30 03/17/18 16:30 Lab Results 03/17/18 03/17/18 03/17/18 Range/Units 16:30 16:30 16:30 WBC 6.75 (4.8-10.8) K/uL RBC 4.74 (4.7-6.1) M/uL Hgb 14.2 (14.0-18.0) g/dL Hct 40.5 L (42-52) % MCV 85.4 (80-100) fL MCH 30.0 (25-34) pg MCHC 35.1 (32-36) g/dL RDW Std Deviation 39.3 (36.4-46.3) fL RDW Coeff of Kim 12.7 (11.5-14.5) % Plt Count 220 (130-400) K/uL MPV 9.4 (7.4-10.4) fL Immature Gran % (Auto) 0.3 % Neut % (Auto) 69.4 % Lymph % (Auto) 18.8 % [place] % (Auto) 7.9 % Eos % (Auto) 3.0 % Baso % (Auto) 0.6 % Immature Gran # (Auto) 0.02 (0.00-0.02) K/uL Neut # (Auto) 4.69 (1.4-6.5) K/uL Lymph # (Auto) 1.27 (1.2-3.4) K/uL [place] # (Auto) 0.53 (0.11-0.59) K/uL Eos # (Auto) 0.20 (0-0.5) K/uL Baso # (Auto) 0.04 (0-0.2) K/uL PT 11.6 (9.0-12.0) Seconds INR 1.2 H (0.9-1.1) APTT 25.2 (21.0-31.0) Seconds PTT Ratio 1.0 Sodium 141 (136-145) mmol/L Potassium 3.9 (3.5-5.1) mmol/L Chloride 107 (98-107) mmol/L Carbon Dioxide 27 (21-32) mmol/L Anion Gap 7.0 (3-11) BUN 12 (7-18) mg/dl Creatinine 0.85 (0.6-1.4) mg/dl Est Cr Clr Drug Dosing 15.8 ml/min Est GFR ( Amer) 112.9 Est GFR (Non-Af Amer) 97.4 BUN/Creatinine Ratio 13.8 (10-20) Glucose 98 (70-99) mg/dl Calcium 9.1 (8.5-10.1) mg/dl Total Bilirubin 0.3 (0.2-1) mg/dl AST 15 (15-37) U/L ALT 33 (12-78) U/L Alkaline Phosphatase 84 (45-117) U/L Total Protein 7.3 (6.4-8.2) gm/dl Albumin 4.3 (3.4-5.0) gm/dl Globulin 3.0 (2.5-4.0) gm/dl Albumin/Globulin Ratio 1.4 (0.9-2) Blood Type Antibody Screen 03/17/18 Range/Units 16:34 WBC (4.8-10.8) K/uL RBC (4.7-6.1) M/uL Hgb (14.0-18.0) g/dL Hct (42-52) % MCV (80-100) fL MCH (25-34) pg MCHC (32-36) g/dL RDW Std Deviation (36.4-46.3) fL RDW Coeff of Kim (11.5-14.5) % Plt Count (130-400) K/uL MPV (7.4-10.4) fL Immature Gran % (Auto) % Neut % (Auto) % Lymph % (Auto) % [place] % (Auto) % Eos % (Auto) % Baso % (Auto) % Immature Gran # (Auto) (0.00-0.02) K/uL Neut # (Auto) (1.4-6.5) K/uL Lymph # (Auto) (1.2-3.4) K/uL [place] # (Auto) (0.11-0.59) K/uL Eos # (Auto) (0-0.5) K/uL Baso # (Auto) (0-0.2) K/uL PT (9.0-12.0) Seconds INR (0.9-1.1) APTT (21.0-31.0) Seconds PTT Ratio Sodium (136-145) mmol/L Potassium (3.5-5.1) mmol/L Chloride (98-107) mmol/L Carbon Dioxide (21-32) mmol/L Anion Gap (3-11) BUN (7-18) mg/dl Creatinine (0.6-1.4) mg/dl Est Cr Clr Drug Dosing ml/min Est GFR ( Amer) Est GFR (Non-Af Amer) BUN/Creatinine Ratio (10-20) Glucose (70-99) mg/dl Calcium (8.5-10.1) mg/dl Total Bilirubin (0.2-1) mg/dl AST (15-37) U/L ALT (12-78) U/L Alkaline Phosphatase (45-117) U/L Total Protein (6.4-8.2) gm/dl Albumin (3.4-5.0) gm/dl Globulin (2.5-4.0) gm/dl Albumin/Globulin Ratio (0.9-2) Blood Type O Negative Antibody Screen NEGATIVE Administered Medications Hydromorphone HCl (Dilaudid) 1 mg IV Q15M PRN PRN Reason: Pain Stop: 03/31/18 16:15 Last Admin: 03/17/18 16:44 Dose: 1 mg Sodium Chloride (Nss 1000ml) 1,000 mls @ 100 mls/hr IV .Q10H VELIA Stop: 03/18/18 02:14 Last Admin: 03/17/18 16:44 Dose: 100 mls/hr Pantoprazole Sodium 40 mg/ (Dextrose) 100 mls @ 20 mls/hr IV Q5H VELIA Stop: 04/16/18 16:29 Last Admin: 03/17/18 17:32 Dose: 20 mls/hr Discontinued Medications Pantoprazole Sodium 80 mg/ (Dextrose) 120 mls @ 400 mls/hr IV NOW ONE Stop: 03/17/18 16:33 Last Infusion: 03/17/18 17:31 Dose: 0 mls/hr Admin: 03/17/18 17:11 Dose: 400 mls/hr Pantoprazole Sodium (Protonix Bolus/Drip) 0 mls @ 1 mls/hr IV ONE STA Stop: 03/17/18 16:17 Last Admin: 03/17/18 17:31 Dose: 1 mls/hr Ondansetron HCl (Zofran) 4 mg IV NOW STA Stop: 03/17/18 16:17 Last Admin: 03/17/18 16:44 Dose: 4 mg ECG Data Attestation: I personally reviewed and interpreted this ECG as follows: Indication: other (GI bleed) Rate (beats per minute): 64 Rhythm: normal sinus Findings: no PAC, no PVC, no ST depression and no ST elevation Blood Pressure Blood Pressure Findings: Elevated blood pressure Blood Pressure Disposition: further management by hospitalist Discharge Plan Visit Data Chief Complaint: GI Bleed Stated Complaint: GI BLEEDING/VOMITING, SEVERE PAIN ED Provider: René Barbosa Discharge Problem: GI bleed Patient Disposition: Being Evaluated by Hospitalist Discharge Instructions Interventions: ED Discharge Assessment Last Done: 03/17/18 18:43 Forms Stand Alone Forms: My [facility] Prescriptions Prescriptions: No Action lisinopril 20 mg Tablet 20 mg PO DAILY RF: 0 atenolol 25 mg Tablet 25 mg PO DAILY RF: 0 pantoprazole 40 mg Tablet,Delayed Release (Dr/Ec) 40 mg PO BID RF: 0 oxycodone 5 mg Tablet 5 mg PO Q4H PRN (Reason: Pain) RF: 0 sucralfate [Carafate] 1 gram Tablet 1 g PO ACHS RF: 0 ranitidine HCl [Zantac] 150 mg Tablet 150 mg PO DAILY RF: 0 Referrals Referrals: Harriett Sampson MD [Primary Care Provider] - The scribe's documentation has been prepared under my direction and personally reviewed by me in its entirety. I confirm that the note above accurately reflects all work, treatment, procedures, and medical decision making performed by me.
[2018-03-17] MEDS ORDERED: ALUMINUM/MAGNESIUM SUSP 30 ML UDC PO PRN (19:16)
[2018-03-17] MEDS ORDERED: MAGNESIUM HYDROXIDE SUSP 30 ML UDC PO PRN (19:16)
[2018-03-17] MEDS ORDERED: POLYETHYLENE (MIRALAX) 17 GM PACK PO PRN (19:16)
[2018-03-17] MEDS ORDERED: ACETAMINOPHEN 325 MG TAB PO PRN (19:16)
[2018-03-17] MEDS: SUCRALFATE 1 GM TAB PO SCH (20:57)
[2018-03-17] MEDS: HYDROmorphone INJ 1 MG/ML SYRINGE IV PRN (20:58)
[2018-03-17] MEDS: ONDANSETRON INJ 2 MG/ML 2 ML VIAL IV PRN (20:58)
[2018-03-17] MEDS: SODIUM CHLORIDE 0.9% 1000ML 1,000 ML IV SCH (20:59)
[2018-03-17 22:16] LABS: Hematocrit (blood only) 38.6 % (42-52); Hemoglobin 13.4 g/dL (14.0-18.0)
[2018-03-18] MEDS: HYDROmorphone INJ 1 MG/ML SYRINGE IV PRN ×6 (00:01→21:06)
[2018-03-18] MEDS: OXYCODONE HCL IR 5 MG TAB (IMMEDIATE RELEASE) PO PRN ×2 (02:39→15:41)
[2018-03-18] MEDS: ONDANSETRON INJ 2 MG/ML 2 ML VIAL IV PRN ×3 (02:58→15:41)
[2018-03-18] MEDS: PANTOprazole 40 MG in DEXTROSE 5% 100 ML IV SCH ×2 (03:07→08:02)
[2018-03-18 06:11] LABS: Hemoglobin 12.4 g/dL (14.0-18.0); Mean Corpuscular Hgb Conc 34.4 g/dL (32-36); Mean Corpuscular Volume 86.5 fL (80-100); Mean Platelet Volume 9.3 fL (7.4-10.4); Platelet Count 180 K/uL (130-400); RDW Coefficient of Variation 12.7 % (11.5-14.5); RDW Standard Deviation 40.2 fL (36.4-46.3); Red Blood Count 4.16 M/uL (4.7-6.1); White Blood Count 6.12 K/uL (4.8-10.8)
[2018-03-18 06:47] LABS: BUN Creatinine Ratio 14.1 (10-20); Calcium 8.2 mg/dl (8.5-10.1); Creatinine Clr Calc Pharmacy 117.1 ml/min; Est GFR (African American) 112.9; Est GFR (Non-African American) 97.4; Potassium 3.9 mmol/L (3.5-5.1)
[2018-03-18] MEDS: LISINOPRIL 20 MG TAB PO SCH (08:00)
[2018-03-18] MEDS: ATENOLOL 25 MG TABLET PO SCH (08:00)
[2018-03-18] MEDS: SUCRALFATE 1 GM TAB PO SCH ×4 (08:02→21:07)
[2018-03-18] MEDS: SODIUM CHLORIDE 0.9% 1000ML 1,000 ML IV SCH (08:35)
--- NOTE | 2018-03-18 09:04 | Anesthesiology Consultation ---
Date of Service March 18, 2018 Assessment & Plan (1) Encounter for pre-operative examination: Chart Review Chart Review: Acceptable Risk for Surgery History Surgery Operation Date: 03/18/18 10:45 Proposed Procedures p Esophagogastroduodenoscopy Dr. Emir Field M.D. Height/Weight Height: 5 ft 9 in Weight: 111.7 kg Allergies Allergy/AdvReac Type Severity Reaction Status Date / Time ketorolac Allergy Unknown SHORTNESS Verified 03/16/18 14:14 OF BREATH,RASH Medications Home Medications Medication Instructions Recorded Confirmed Last Taken atenolol 25 mg PO DAILY 03/16/18 03/17/18 03/17/18 lisinopril 20 mg PO DAILY 03/16/18 03/17/18 03/17/18 oxycodone 5 mg PO Q4H PRN 03/16/18 03/17/18 Unknown pantoprazole 40 mg PO BID 03/16/18 03/17/18 03/17/18 AM DOSE ranitidine HCl [Zantac] 150 mg PO DAILY 03/17/18 03/17/18 Unknown sucralfate [Carafate] 1 g PO ACHS 03/17/18 03/17/18 03/17/18 11:30 Active Medications Generic Name Dose Route Start Last Admin Trade Name Freq PRN Reason Stop Dose Admin Atenolol 25 mg 03/18/18 09:00 03/18/18 08:00 Tenormin PO 04/17/18 08:59 25 mg DAILY VELIA Administration Hydromorphone HCl 1 mg 03/17/18 19:16 03/18/18 08:35 Dilaudid IV 03/31/18 19:15 1 mg Q4H PRN Administration Pain Pantoprazole Sodium 40 mg/ 100 mls @ 20 mls/hr 03/17/18 22:30 03/18/18 09:57 Dextrose IV 04/16/18 22:29 0 mls/hr Q5H VELIA Infusion Sodium Chloride 1,000 mls @ 50 mls/hr 03/17/18 20:00 03/18/18 09:57 Nss 1000ml IV 04/16/18 19:59 0 mls/hr .Q20H VELIA Infusion Lisinopril 20 mg 03/18/18 09:00 03/18/18 08:00 Zestril PO 04/17/18 08:59 20 mg DAILY VELIA Administration Ondansetron HCl 4 mg 03/17/18 19:16 03/18/18 09:10 Zofran IV 04/16/18 19:15 4 mg Q6H PRN Administration Nausea Oxycodone HCl 5 mg 03/17/18 19:16 03/18/18 02:39 Roxicodone Immediate Rel PO 03/31/18 19:15 5 mg Q4H PRN Administration Pain Sucralfate 1 gm 03/17/18 21:00 03/18/18 08:02 Carafate Tab PO 04/16/18 20:59 1 gm ACHS VELIA Administration Past Medical History Medical History Avascular necrosis of bone of right hip (Chronic) PUD (peptic ulcer disease) (Resolved) GERD (gastroesophageal reflux disease) (Chronic) HTN (hypertension) (Chronic) UGIB (upper gastrointestinal bleed) (Resolved) Osteoarthritis (Chronic) Past Family History Family History Father CAD (coronary artery disease) T2DM (type 2 diabetes mellitus) Mother Pancreatic cancer HTN (hypertension) Past Surgical History Surgical History S/P tonsillectomy (Resolved) S/P cholecystectomy (Resolved) S/P appendectomy (Resolved) H/O vasectomy (Ruled-out) S/P knee replacement (Resolved) Social History Smoking Status: Never smoker Hx Alcohol Use: No Hx Substance Use: No Physical Exam Vital Signs Last Vital Signs Temp 37.1 C 03/18/18 10:05 Pulse 62 03/18/18 10:05 Resp 18 03/18/18 10:05 BP 147/86 H 03/18/18 10:05 Pulse Ox 97 03/18/18 10:05 Testing Electrocardiogram Date: 03/17/18 Findings: + NSR @ Laboratory Results 03/18/18 05:38 03/18/18 05:38 Blood Type O Negative 03/17/18 16:34 Antibody Screen NEGATIVE 03/17/18 16:34 PT 11.6 Seconds (9.0-12.0) 03/17/18 16:30 INR 1.2 (0.9-1.1) H 03/17/18 16:30 APTT 25.2 Seconds (21.0-31.0) 03/17/18 16:30
--- NOTE | 2018-03-18 09:28 | Gastrointestinal Consultation ---
Date of Consultation March 18, 2018 Assessment & Plan (1) GI bleed: Pt is a 57 y/o male w c/o hematemesis, melena, upper abd pain. Hx of gastric ulcer, which had healed when re-evaluated in July [address] abd/ pelvis w/o acute processes. He did drop blood ct overnight. He denies NSAIDs, ETOH or tobacco uses, prior Hpylori negative on bx. - Keep NPO and plan on EGD evaluation to r/o PUD - Keep PPI gtt for now, can DC Ranitidine - Monitor H/H and transfuse prn - Further recs after EGD completed. Present on Admission?: Yes Supervising Physician Co-Signing Physician Notes I have seen and examined the patient. 57 yo male with prior gastric ulcer (healed per last egd in 07/31) with intermittent hematemesis/melena. ? recent NSAID use. EGD for further evaluation of ulcer - pt has consented. History of Present Illness Reason for Consultation: UGI bleed Requesting Physician: Dr. Imtiaz Monroe Attending Physician: Dr. Karen Field History of Present Illness Pt is a 57 y/o male w PMHx of PUD, HTN, R hip AVN on chronic oxycodone who presented initially on 03/16/18 w c/o hematemesis, dark tarry stools and upper abd pain. Labs, VS, and CT abd/pelvis were unremarkable at that time though stools were heme positive, thus was DC'd him but to f/u w [facility] GI clinic. He called our office and was told that next appt available was in April. He returned to the ED w reported increased hematemesis. He reports last hematemesis was around 1P yesterday. Had noticed dark tarry stools around 10P last night. He had hx of PUD seen on EGD last year in July. Repeat EGD in October 2017 showed healed ulcer. Hpylori negative on bx. He has GERD and on Protonix 40mg BID. He denies any high dose ASA and NSAIDs uses, tobacco products or ETOH. Denies also any sick contact. Labs and prior CT scan reviewed. CBC showed WBC 6, H/H 12/36, Plt 180, PT/INR 11.6/1.2. BUN/Cr 12/0.8. Of noted, last Colonoscopy 01/20/17: int hemorrhoids, diverticulosis. Allergies Allergy/AdvReac Type Severity Reaction Status Date / Time ketorolac Allergy Unknown SHORTNESS Verified 03/16/18 14:14 OF BREATH,RASH Home Medications Home Medications Medication Instructions Recorded Confirmed Type atenolol 25 mg PO DAILY 03/16/18 03/17/18 History lisinopril 20 mg PO DAILY 03/16/18 03/17/18 History oxycodone 5 mg PO Q4H PRN 03/16/18 03/17/18 History pantoprazole 40 mg PO BID 03/16/18 03/17/18 History ranitidine HCl [Zantac] 150 mg PO DAILY 03/17/18 03/17/18 History sucralfate [Carafate] 1 g PO ACHS 03/17/18 03/17/18 History Patient History Medical History Avascular necrosis of bone of right hip (Chronic) PUD (peptic ulcer disease) (Resolved) GERD (gastroesophageal reflux disease) (Chronic) HTN (hypertension) (Chronic) UGIB (upper gastrointestinal bleed) (Resolved) Osteoarthritis (Chronic) Surgical History S/P tonsillectomy (Resolved) S/P cholecystectomy (Resolved) S/P appendectomy (Resolved) H/O vasectomy (Ruled-out) S/P knee replacement (Resolved) Family History Father CAD (coronary artery disease) T2DM (type 2 diabetes mellitus) Mother Pancreatic cancer HTN (hypertension) Social History Current Living Situation: Significant Other Other Information That Helps Us Care for You: No Feels Safe at Home: Yes Safety Concerns: Feels Safe At This Time Smoking Status: Never smoker Hx Alcohol Use: No Hx Substance Use: No Beliefs That Will Affect Care: None Preferred Language: Malian Communication Ability: Effective Review of Systems Constitutional: as per Subjective / HPI Respiratory: no cough and no dyspnea Cardiovascular: no chest pain, no lightheadedness and no edema Gastrointestinal: as per Subjective / HPI Physical Exam 2 Vital Signs (Past 24 Hours): Last Vital Signs Temp 36.4 C L 03/18/18 07:44 Pulse 59 L 03/18/18 07:44 Resp 18 03/18/18 07:44 BP 176/97 H 03/18/18 07:44 Pulse Ox 98 03/18/18 07:44 Constitutional: WD/WN, vitals as above well groomed, cooperative and comfortable Eyes: PERRL, conjunctivae normal, anicteric sclerae ENMT: external ear and nose normal, oropharynx normal Respiratory: normal respiratory effort, lungs clear to auscultation Cardiovascular: RRR, no murmur, no edema Gastrointestinal (Abdomen): Inspection/Auscultation: normal bowel sounds; abdomen not distended Percussion/Palpation: + abdomen tender (epigastric ) and abdomen soft Skin: no rashes, warm and dry no jaundice Neurologic: Motor/Sensory: no asterixis Psychiatric: A+Ox3, euthymic affect Lymphatic: no lymphedema Results & Data Laboratory Results Laboratory Results - last 72 hr 03/17/18 03/17/18 03/17/18 16:30 16:30 16:30 WBC 6.75 RBC 4.74 Hgb 14.2 Hct 40.5 L MCV 85.4 MCH 30.0 MCHC 35.1 RDW Std Deviation 39.3 RDW Coeff of Kim 12.7 Plt Count 220 MPV 9.4 Immature Gran % (Auto) 0.3 Neut % (Auto) 69.4 Lymph % (Auto) 18.8 [place] % (Auto) 7.9 Eos % (Auto) 3.0 Baso % (Auto) 0.6 Immature Gran # (Auto) 0.02 Neut # (Auto) 4.69 Lymph # (Auto) 1.27 [place] # (Auto) 0.53 Eos # (Auto) 0.20 Baso # (Auto) 0.04 PT 11.6 INR 1.2 H APTT 25.2 PTT Ratio 1.0 Sodium 141 Potassium 3.9 Chloride 107 Carbon Dioxide 27 Anion Gap 7.0 BUN 12 Creatinine 0.85 Est Cr Clr Drug Dosing 15.8 Est GFR ( Amer) 112.9 Est GFR (Non-Af Amer) 97.4 BUN/Creatinine Ratio 13.8 Glucose 98 Calcium 9.1 Total Bilirubin 0.3 AST 15 ALT 33 Alkaline Phosphatase 84 Total Protein 7.3 Albumin 4.3 Globulin 3.0 Albumin/Globulin Ratio 1.4 Blood Type Antibody Screen 03/17/18 03/17/18 03/18/18 16:34 21:56 05:38 WBC 6.12 RBC 4.16 L Hgb 13.4 L 12.4 L Hct 38.6 L 36.0 L MCV 86.5 MCH 29.8 MCHC 34.4 RDW Std Deviation 40.2 RDW Coeff of Kim 12.7 Plt Count 180 MPV 9.3 Immature Gran % (Auto) Neut % (Auto) Lymph % (Auto) [place] % (Auto) Eos % (Auto) Baso % (Auto) Immature Gran # (Auto) Neut # (Auto) Lymph # (Auto) [place] # (Auto) Eos # (Auto) Baso # (Auto) PT INR APTT PTT Ratio Sodium Potassium Chloride Carbon Dioxide Anion Gap BUN Creatinine Est Cr Clr Drug Dosing Est GFR ( Amer) Est GFR (Non-Af Amer) BUN/Creatinine Ratio Glucose Calcium Total Bilirubin AST ALT Alkaline Phosphatase Total Protein Albumin Globulin Albumin/Globulin Ratio Blood Type O Negative Antibody Screen NEGATIVE 03/18/18 05:38 WBC RBC Hgb Hct MCV MCH MCHC RDW Std Deviation RDW Coeff of Kim Plt Count MPV Immature Gran % (Auto) Neut % (Auto) Lymph % (Auto) [place] % (Auto) Eos % (Auto) Baso % (Auto) Immature Gran # (Auto) Neut # (Auto) Lymph # (Auto) [place] # (Auto) Eos # (Auto) Baso # (Auto) PT INR APTT PTT Ratio Sodium 140 Potassium 3.9 Chloride 107 Carbon Dioxide 29 Anion Gap 4.0 BUN 12 Creatinine 0.85 Est Cr Clr Drug Dosing 117.1 Est GFR ( Amer) 112.9 Est GFR (Non-Af Amer) 97.4 BUN/Creatinine Ratio 14.1 Glucose 94 Calcium 8.2 L Total Bilirubin AST ALT Alkaline Phosphatase Total Protein Albumin Globulin Albumin/Globulin Ratio Blood Type Antibody Screen _ (1) GI bleed GI bleed type/associated pathology: unspecified gastrointestinal hemorrhage type Gastritis type: Qualified Code(s): K92.2 - Gastrointestinal hemorrhage, unspecified
[2018-03-18] MEDS ORDERED: LIDOCAINE HCL 2% 2 ML VIAL/AMP(20MG/ML) INFIL ONE (10:50)
[2018-03-18] MEDS ORDERED: PROPOFOL IV EMULSION 10 MG/ML 20 ML VIAL IV ONE (10:50)
--- NOTE | 2018-03-18 11:12 | GI REPORT ---
Patient Name: Patrice Cr Procedure Date: 03/18/2018 10:51 AM Date of : 1960 Admit Type: Inpatient Age: 57 Gender: Male Attending MD: Karen Field M.d. Procedure: Upper GI endoscopy Providers: Karen Field M.d. Referring MD: Imtiaz Monroe Md Indications: Hematemesis and reported melena Medicines: Propofol per Anesthesia, See anesthesia record for further medications that were administered. Complications: No immediate complications. Estimated Blood Loss: Estimated blood loss was minimal. Procedure: Pre-Anesthesia Assessment: - Patient identification and proposed procedure were verified prior to the procedure by the physician and the nurse. The procedure was verified in the pre-procedure area. - Prior to the procedure, a History and Physical was performed, and patient medications, allergies and sensitivities were reviewed. The patient's tolerance of previous anesthesia was reviewed. - The risks and benefits of the procedure and the sedation options and risks were discussed with the patient. All questions were answered and informed consent was obtained. - ASA Grade Assessment: III - A patient with severe systemic disease. After obtaining informed consent, the endoscope was passed under direct vision. Throughout the procedure, the patient's blood pressure, pulse, and oxygen saturations were monitored continuously. The Scope was introduced through the mouth, and advanced to the second part of duodenum. The upper GI endoscopy was accomplished without difficulty. The patient tolerated the procedure well. Findings: The examined esophagus apoeared normal without evidence of esophagitis or ulceration. The Z-line was regular. A single localized, 4 mm non-bleeding erosion was found in the gastric antrum. There were no stigmata of recent bleeding. Biopsies were taken with a cold forceps for Helicobacter pylori testing. The examined stomach otherwise appeared normal without evidence of ulceration. The duodenal bulb and second portion of the duodenum were normal without evidence of ulceration or inflammation. There was bile present in this area. Impression: - Normal esophagus. - Z-line regular. - Non-bleeding erosive gastropathy. Biopsied. - Normal stomach. - Normal duodenal bulb and second portion of the duodenum. Recommendation: - Await pathology results. - Twice a day PPI orally for the next 6 weeks, then once daily thereafter. - Limit NSAID's, tobacco, etoh use. - Return to the hospital floor when ready. Karen Field M.D. Karen Field M.d. 03/18/2018 11:11:46 AM This report has been signed electronically. Note Initiated On: 03/18/2018 10:51 AM Number of Addenda: 0 I attest to the content of the Intraoperative Record and orders documented therein, exceptions below {[id number]}
--- NOTE | 2018-03-18 11:17 | Anesthesiology Progress Note ---
Date of Service March 18, 2018 Anesthesia Post Procedure Vital Signs Vital Signs: Temp Pulse Pulse Pulse Resp BP BP 03/18/18 11:10 62 16 127/78 03/18/18 10:05 37.1 C 62 18 147/86 H 03/18/18 07:44 36.4 C L 59 L 18 176/97 H 03/18/18 04:42 36.9 C 61 18 150/84 H 03/18/18 01:39 66 03/17/18 23:06 36.6 C 62 21 147/92 H 03/17/18 19:00 37.0 C 73 67 18 151/97 H 03/17/18 17:05 69 16 170/85 H 03/17/18 15:15 37.3 C 76 20 194/94 H Pulse Ox 03/18/18 11:10 97 03/18/18 10:05 97 03/18/18 07:44 98 03/18/18 04:42 97 03/18/18 01:39 03/17/18 23:06 92 03/17/18 19:00 94 03/17/18 17:05 98 03/17/18 15:15 96 Pain Intensity Abdomen: Pain Intensity: 4 Notes Mental Status: alert / awake / arousable and participated in evaluation Patient Amnestic to Procedure: Yes Nausea / Vomiting: adequately controlled Pain: adequately controlled Airway Patency, RR, SpO2: stable & adequate BP & HR: stable & adequate Hydration State: stable & adequate Anesthetic Complications: no major complications apparent and Pt Satisfied with anesthetic care
[2018-03-18 16:22] LABS: Hematocrit (blood only) 38.6 % (42-52); Hemoglobin 13.5 g/dL (14.0-18.0)
--- NOTE | 2018-03-18 17:13 | Hospitalist Progress Note ---
Date of Service March 18, 2018 Assessment & Plan (1) GI bleed: Patient is a 57 yr old with H/O PUD presents with hemetemesis, melena, abdominal pain x 4-5 days. --CT ABD: No acute process within the abdomen or pelvis. Colonic diverticulosis without evidence for acute diverticulitis. No bowel obstruction. --S/P EGD on 03/18/18: Non-bleeding erosive gastropathy Follow up pathology results Monitor H&H No bleeding issues currently Appreciate GI help Protonix ggt discontinued Continue PPI BID, carafate achs received IV fluids liquid diet today (2) Abdominal pain: -plan as above (3) PUD (peptic ulcer disease): H/O gastric ulcer in past requiring clip 07/2017 management as above (4) HTN (hypertension): Stable continue atenolol, lisinopril monitor (5) Avascular necrosis of bone of right hip: On oxycodone 5mg po q4hr prn follows with orthopedic, scheduled for possible R DINA in 05/2018 monitor (6) DVT prophylaxis: SCDS Re: GI bleeding Code Status: Full Code Disposition: Expect to discharge home when medically stable Subjective Patient is seen and examined at bedside Patient had EGD today which showed non bleeding erosive gastropathy Patient reports still having some generalized abdominal pain No bleeding issues since hospitalization Denies any chest pain, dyspnea, dizziness, nausea Physical Exam 2 Vital Signs (Past 24 Hours): Last Vital Signs Temp 36.7 C 03/18/18 15:51 Pulse 61 03/18/18 16:00 Resp 20 03/18/18 15:51 BP 151/89 H 03/18/18 15:51 Pulse Ox 97 03/18/18 15:51 Physical Exam: Physical Exam: Vitals signs as noted above General Appearance:Obese, no apparent distress Head: normocephalic, Atraumatic Eyes: normal inspection, EOMI Neck: supple, Trachea midline Respiratory/Chest: Normal breath sounds, CTA Cardiovascular: S1, S2, No murmur Abdomen/GI:Soft, Non tender, Bowel sounds present Extremities/Musculoskelatal:normal inspection, no edema 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:AAOX3, grossly no focal neurological deficits Skin: normal color, warm Results & Data Laboratory Results Short CBC 03/17/18 03/18/18 03/18/18 Range/Units 21:56 05:38 16:00 WBC 6.12 (4.8-10.8) K/uL Hgb 13.4 L 12.4 L 13.5 L (14.0-18.0) g/dL Hct 38.6 L 36.0 L 38.6 L (42-52) % Plt Count 180 (130-400) K/uL BMP 03/17/18 03/18/18 16:30 05:38 Sodium 141 140 Potassium 3.9 3.9 Chloride 107 107 Carbon Dioxide 27 29 BUN 12 12 Creatinine 0.85 0.85 Glucose 98 94 Calcium 9.1 8.2 L Liver Function 03/17/18 Range/Units 16:30 Total Bilirubin 0.3 (0.2-1) mg/dl AST 15 (15-37) U/L ALT 33 (12-78) U/L Alkaline Phosphatase 84 (45-117) U/L Albumin 4.3 (3.4-5.0) gm/dl Diagnostic Findings EGD: Impression: - Normal esophagus. - Z-line regular. - Non-bleeding erosive gastropathy. Biopsied. - Normal stomach. - Normal duodenal bulb and second portion of the duodenum. Recommendation: - Await pathology results. - Twice a day PPI orally for the next 6 weeks, then once daily thereafter. - Limit NSAID's, tobacco, etoh use. - Return to the hospital floor when ready. _ (1) GI bleed GI bleed type/associated pathology: unspecified gastrointestinal hemorrhage type Gastritis type: Qualified Code(s): K92.2 - Gastrointestinal hemorrhage, unspecified (2) Abdominal pain Abdominal location: periumbilical Qualified Code(s): R10.33 - Periumbilical pain (3) HTN (hypertension) Hypertension type: unspecified Qualified Code(s): I10 - Essential (primary) hypertension
[2018-03-18] MEDS: PANTOprazole 40 MG TAB PO SCH (21:07)
[2018-03-19] MEDS: HYDROmorphone INJ 1 MG/ML SYRINGE IV PRN ×4 (00:43→12:27)
[2018-03-19 05:50] LABS: Hematocrit (blood only) 39.1 % (42-52); Hemoglobin 13.5 g/dL (14.0-18.0)
[2018-03-19] MEDS: SUCRALFATE 1 GM TAB PO SCH ×2 (08:11→12:24)
[2018-03-19] MEDS: LISINOPRIL 20 MG TAB PO SCH (08:11)
[2018-03-19] MEDS: PANTOprazole 40 MG TAB PO SCH (08:11)
[2018-03-19] MEDS: ATENOLOL 25 MG TABLET PO SCH (08:12)
[2018-03-19] MEDS: ONDANSETRON INJ 2 MG/ML 2 ML VIAL IV PRN ×2 (08:43→16:46)
--- NOTE | 2018-03-19 10:30 | Anesthesiology Progress Note ---
Date of Service March 19, 2018 Anesthesia Post Procedure Vital Signs Vital Signs: Temp Pulse Pulse Resp BP Pulse Ox 03/19/18 07:59 36.7 C 55 L 20 146/82 H 97 03/18/18 23:40 36.6 C 61 16 117/69 97 03/18/18 20:09 36.9 C 61 17 153/86 H 97 03/18/18 16:00 61 03/18/18 15:51 36.7 C 62 20 151/89 H 97 03/18/18 11:35 57 L 16 150/95 H 98 03/18/18 11:21 58 L 16 141/87 H 97 03/18/18 11:10 62 16 127/78 97 Pain Intensity Abdomen: Pain Intensity: 0 Notes Mental Status: alert / awake / arousable and participated in evaluation Patient Amnestic to Procedure: Yes Nausea / Vomiting: adequately controlled Pain: adequately controlled Airway Patency, RR, SpO2: stable & adequate BP & HR: stable & adequate Hydration State: stable & adequate Anesthetic Complications: no major complications apparent and Pt Satisfied with anesthetic care
--- NOTE | 2018-03-19 11:03 | Gastroenterology Progress Note ---
Date of Service March 19, 2018 Assessment & Plan (1) GI bleed: 57 y/o male w c/o hematemesis, melena, upper abd pain. Hx of gastric ulcer , which had healed when re-evaluated in July [address] abd/pelvis w/o acute processes. S/P EGD w/o evidence of PUD. H&H stable. Clinically improving. PPI BID x 6 weeks then once daily thereafter Limit NSAIDs No ETOH No tobacco Diet as tolerated GI sign off. Supervising Physician Co-Signing Physician Notes I have discussed the management with HUEY Villatoro. Hgb has improved. No further melena. Normal egd on 03/18/18. Can continue Protonix 40 mg po bid especially while he reamins on an nsaid. OK to dc home from GI perspective. Subjective Pt was seen and evaluated, chart reviewed. S/P EGD. Notes this AM feels better. Less abd pain. Last BM was this AM. Dark. No BRBPR. Tolerated breakfast. Constitutional: no fever, no body aches, no weakness and no weight loss Respiratory: no cough, no dyspnea, no pain on inspiration and no wheezing Cardiovascular: no chest pain, no radiating jaw, neck or arm pain, no dyspnea on exertion and no palpitations Gastrointestinal: no abdominal pain, no early satiety, no vomiting and no pain with swallowing Physical Exam 2 Vital Signs (Past 24 Hours): Last Vital Signs Temp 36.7 C 03/19/18 07:59 Pulse 55 L 03/19/18 07:59 Resp 20 03/19/18 07:59 BP 146/82 H 03/19/18 07:59 Pulse Ox 97 03/19/18 07:59 Constitutional: well developed, well nourished, cooperative and comfortable Respiratory: normal respiratory effort, lungs clear to auscultation Cardiovascular: RRR, no murmur, no edema Gastrointestinal (Abdomen): normal bowel sounds, soft, nontender, no hepatosplenomegaly Skin: no rashes, warm and dry Results & Data Laboratory Results 03/19/18 03/18/18 Range/Units 05:20 16:00 Hgb 13.5 L 13.5 L (14.0-18.0) g/dL Hct 39.1 L 38.6 L (42-52) % _ (1) GI bleed GI bleed type/associated pathology: unspecified gastrointestinal hemorrhage type Gastritis type: Qualified Code(s): K92.2 - Gastrointestinal hemorrhage, unspecified
[2018-03-19] MEDS: OXYCODONE HCL IR 5 MG TAB (IMMEDIATE RELEASE) PO PRN (16:45)
--- NOTE | 2018-03-19 17:03 | Hospitalist Progress Note ---
Date of Service March 19, 2018 Assessment & Plan (1) GI bleed: Patient is a 57 yr old with H/O PUD presents with hemetemesis, melena, abdominal pain x 4-5 days. --CT ABD: No acute process within the abdomen or pelvis. Colonic diverticulosis without evidence for acute diverticulitis. No bowel obstruction. --S/P EGD on 03/18/18: Non-bleeding erosive gastropathy Follow up pathology results Monitor H&H No bleeding issues currently Appreciate GI help Protonix ggt discontinued Continue PPI BID, carafate achs received IV fluids Advance diet as tolerated Continue PPI BID for 6 weeks and then once daily Avoid NSAIDs No Tobacco use Advised to follow up with GI in 2-4 weeks (2) Abdominal pain: -plan as above (3) PUD (peptic ulcer disease): H/O gastric ulcer in past requiring clip 07/2017 management as above (4) HTN (hypertension): Stable continue atenolol, lisinopril monitor (5) Avascular necrosis of bone of right hip: On oxycodone 5mg po q4hr prn follows with orthopedic, scheduled for possible R DINA in 05/2018 monitor (6) DVT prophylaxis: SCDS Re: GI bleeding Code Status: Full Code Disposition: Expect to discharge home when medically stable Subjective Patient is seen and examined at bedside No further bleeding/melena Hb stable Had EGD yesterday Denies any chest pain, dyspnea, dizziness Plan to discharge home today Physical Exam 2 Vital Signs (Past 24 Hours): Last Vital Signs Temp 36.8 C 03/19/18 15:11 Pulse 65 03/19/18 15:11 Resp 20 03/19/18 15:11 BP 142/91 H 03/19/18 15:11 Pulse Ox 98 03/19/18 15:11 Physical Exam: Physical Exam: Vitals signs as noted above General Appearance:Obese, no apparent distress Head: normocephalic, Atraumatic Eyes: normal inspection, EOMI Neck: supple, Trachea midline Respiratory/Chest: Normal breath sounds, CTA Cardiovascular: S1, S2, No murmur Abdomen/GI:Soft, Non tender, Bowel sounds present Extremities/Musculoskelatal:normal inspection, no edema 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:AAOX3, grossly no focal neurological deficits Skin: normal color, warm Results & Data Laboratory Results Short CBC 03/19/18 Range/Units 05:20 Hgb 13.5 L (14.0-18.0) g/dL Hct 39.1 L (42-52) % _ (1) GI bleed GI bleed type/associated pathology: unspecified gastrointestinal hemorrhage type Gastritis type: Qualified Code(s): K92.2 - Gastrointestinal hemorrhage, unspecified (2) Abdominal pain Abdominal location: periumbilical Qualified Code(s): R10.33 - Periumbilical pain (3) HTN (hypertension) Hypertension type: unspecified Qualified Code(s): I10 - Essential (primary) hypertension
--- NOTE | 2018-03-19 17:08 | Discharge Summary ---
Date of Service March 19, 2018 Admission HPI Per Admitting Provider This is a 57 year old male with significant PMH of PUD, HTN, R hip avascular necrosis with chronic narcotic use who presents to [facility] secondary to hemetemesis , melena, abdominal pain x 4-5 days. Patient was last seen in ED 03/16/17 secondary to above complaints. At that time CBC, CMP, CT abd/pelvis relatively unremarkable. GI was contacted and recommended patient f/u outpatient for urgent scope. [facility] and was told he could not be seen until April. Given continued symptoms despite treatment in ED it was recommended by GI to return to ED for admission and work up. Of note patient admitted in past 07/2017 for non bleeding PUD s/p clip by Dr. Jarrett. Further seen in 10/31 for similar sx, repeat EGD showed healing gastric ulcer w/o current bleeding. He takes PPI BID daily and after ED eval yesterday was recommended to begin Carafate QID and Zantac 150mg daily. This was not initiated given patient did not go to pharmacy. Currently he complains of periumbilical abdominal pain, constant, 9/10 on arrival, no 7/10 after analgesia, hemetemsis, melena, nausea, diarrhea, dizziness, lightheaded. He denies f/c/s, chest pain, palpitations, sob, dsyuria , hematuria, increased freq with urination or urgency. Overall appetite has been poor past week, unknown if weight loss. Feels sx have progressively been getting worse. Initially had speckles of blood in vomit, but this morning has diffuse blood in vomit, unsure exactly of quantity. No known sick contacts. Admission Exam Per Admitting Provider Gen: WD/WN, M/F, NAD, sitting up in bed, pleasant, conversing easily Head: Normocephalic, Atraumatic Eyes: Sclera normal, no conjunctival injection, PERRLA, EOMI ENT: Gross hearing intact, normal pharynx, mucous membranes moist Neck: supple, no adenopathy, No JVD, no bruit, no thyromegaly, Resp: Clear to auscultation b/l, no wheeze, rales, rhonchi. 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 Extremities: No edema bilaterally Skin: warm, moist, no rash, negative turgor, cap refill < 2sec Neuro: Alert and oriented x 3, speech normal, good mood/affect, cran nerve 2-12 intact grossly : deferred Principal Diagnosis Discharge Information Discharge Diagnosis GI bleed Discharge Goals Decrease discomfort,Improve disease control, Improve function Discharge Activity Limitations Resume your previous activity Discharge Data Allergies Allergy/AdvReac Type Severity Reaction Status Date / Time ketorolac Allergy Unknown SHORTNESS Verified 03/16/18 14:14 OF BREATH,RASH Consultations 03/17/18 16:35 ED Decision to Admit Stat 03/17/18 17:54 Consult Gastroenterology Routine Procedures Performed Operation Date: 03/18/18 10:45 Actual Procedures p EGD Biopsy Cytology - Karen Field M.D. CT ABD: 1. No acute process within the abdomen or pelvis. 2. Colonic diverticulosis without evidence for acute diverticulitis. 3. No bowel obstruction. EGD: Impression: - Normal esophagus. - Z-line regular. - Non-bleeding erosive gastropathy. Biopsied. - Normal stomach. - Normal duodenal bulb and second portion of the duodenum. Recommendation: - Await pathology results. - Twice a day PPI orally for the next 6 weeks, then once daily thereafter. - Limit NSAID's, tobacco, etoh use. - Return to the hospital floor when ready. Hospital Course (1) GI bleed: Patient is a 57 yr old with H/O PUD presents with hemetemesis, melena, abdominal pain x 4-5 days. --CT ABD: No acute process within the abdomen or pelvis. Colonic diverticulosis without evidence for acute diverticulitis. No bowel obstruction. --S/P EGD on 03/18/18: Non-bleeding erosive gastropathy Follow up pathology results Monitor H&H No bleeding issues currently Appreciate GI help Protonix ggt discontinued Continue PPI BID, carafate achs received IV fluids Advance diet as tolerated Continue PPI BID for 6 weeks and then once daily Avoid NSAIDs No Tobacco use Advised to follow up with GI in 2-4 weeks (2) Abdominal pain: -plan as above (3) PUD (peptic ulcer disease): H/O gastric ulcer in past requiring clip 07/2017 management as above (4) HTN (hypertension): Stable continue atenolol, lisinopril monitor (5) Avascular necrosis of bone of right hip: On oxycodone 5mg po q4hr prn follows with orthopedic, scheduled for possible R DINA in 05/2018 monitor (6) DVT prophylaxis: SCDS Re: GI bleeding Code Status: Full Code Disposition: Expect to discharge home when medically stable Total Time Total Time Spent Total Time Spent (In Minutes): 33 minutes Total Time Includes: Examination of the Patient, Discharge Planning, Medication Reconciliation and Other Discharge Plan Discharge Items Patient Disposition: Home - Self-Care Reason For Visit: PRESUMED GIB Discharge Diagnosis: GI bleed Discharge Goals: Decrease discomfort, Improve disease control and Improve function Activity: Resume your previous activity Exercise/Sports: Gradually increase as tolerated Non-emergency contact: Primary Care Provider and Supervisor [employer] Call non-emergency contact if: you have any medication questions, your symptoms worsen, your pain is not controlled, your pain is worsening, your pain is unusual for you and you have a fever Diet: Heart Healthy Addtl Provider Instructions: Follow up with your Primary Care Physician in 1 week as advised Follow up with your statistical technician in 2-4 weeks Take Protonix 40mg twice a day for 6 weeks and then once daily Seek immediate medical attention if your symptoms reoccur or worsen Prescriptions: Continue lisinopril 20 mg Tablet 20 mg PO DAILY RF: 0 atenolol 25 mg Tablet 25 mg PO DAILY RF: 0 pantoprazole 40 mg Tablet,Delayed Release (Dr/Ec) 40 mg PO BID RF: 0 oxycodone 5 mg Tablet 5 mg PO Q4H PRN (Reason: Pain) RF: 0 sucralfate [Carafate] 1 gram Tablet 1 g PO ACHS RF: 0 ranitidine HCl [Zantac] 150 mg Tablet 150 mg PO DAILY RF: 0 Stand-Alone Forms: [facility] Discharge Orders: Discharge Order (Routine); Ordered 03/19/18 Ordered By: Imtiaz Monroe Admission Data Admit Date/Time: 03/17/18 17:54 Attending Provider: Imtiaz Monroe Admit Provider: Imtiaz Monroe Primary Care Provider: Harriett Sampson Other Providers: Karen Field Satish K Service: Telemetry Other Interventions: Discharge Summary Assessment (RN) Last Done: 03/19/18 17:26 Pending Studies at Discharge: No DC Date/Time DO NOT enter until pt leaves facility: 03/19/18 17:45
== END 2018-03-19 17:45 | disposition home or self-care (01) ==
LOC: ED 15:07 → 2N 15:07

== ENCOUNTER 2018-07-13 18:12 | Observation (INO) ==
[2018-07-13] MEDS ORDERED: NITROGLYCERIN SL 0.4 MG/TAB TAB SL STA (18:55)
[2018-07-13 19:20] LABS: Basophils # (auto) 0.06 K/uL (0-0.2); Basophils % (auto) 0.8 %; Eosinophils # (auto) 0.82 K/uL (0-0.5); Eosinophils % (auto) 10.6 %; Hematocrit (blood only) 35.4 % (42-52); Hemoglobin 12.2 g/dL (14.0-18.0); Immature Granulocytes # (auto) 0.02 K/uL (0.00-0.02); Immature Granulocytes % (auto) 0.3 %; Lymphocytes # (auto) 1.19 K/uL (1.2-3.4); Lymphocytes % (auto) 15.4 %; Mean Corpuscular Hgb Conc 34.5 g/dL (32-36); Mean Corpuscular Volume 86.1 fL (80-100); Mean Platelet Volume 8.6 fL (7.4-10.4); Monocytes # (auto) 0.53 K/uL (0.11-0.59); Monocytes % (auto) 6.9 %; Platelet Count 285 K/uL (130-400); RDW Coefficient of Variation 13.3 % (11.5-14.5); RDW Standard Deviation 41.4 fL (36.4-46.3); Red Blood Count 4.11 M/uL (4.7-6.1); White Blood Count 7.72 K/uL (4.8-10.8)
[2018-07-13 19:41] LABS: Alanine Aminotransferase 32 U/L (12-78); Aspartate Aminotransferase 16 U/L (15-37); BUN Creatinine Ratio 17.2 (10-20); Blood Urea Nitrogen 18 mg/dl (7-18); Calcium 8.9 mg/dl (8.5-10.1); Carbon Dioxide 24 mmol/L (21-32); Chloride 110 mmol/L (98-107); Creatinine Clr Calc Pharmacy 88.4 ml/min; Est GFR (African American) 89.9; Est GFR (Non-African American) 77.5; Glucose 87 mg/dl (70-99); Potassium 3.9 mmol/L (3.5-5.1); Sodium 142 mmol/L (136-145)
--- NOTE | 2018-07-13 19:42 | XRay Report ---
XR chest 1V portable CLINICAL HISTORY: Chest Pain dyspnea COMPARISON STUDY: 10/15/2017 FINDINGS: The bones soft tissues and hemidiaphragms are normal. The cardiomediastinal silhouette is n ormal. The lungs are clear. The pulmonary vasculature is normal. IMPRESSION: Negative chest. The above report was generated using voice recognition software. It may contain grammatical, syntax or spelling errors. Electronically signed by: Joe Holley M.D. 07/13/2018 7:41 PM
[2018-07-13 19:46] LABS: Albumin Globulin Ratio 1.2 (0.9-2); Alkaline Phosphatase 103 U/L (45-117); Bilirubin,Total 0.3 mg/dl (0.2-1); Globulin 3.4 gm/dl (2.5-4.0); Total Protein 7.4 gm/dl (6.4-8.2); Troponin I < 0.015 ng/ml (0-0.045)
[2018-07-13] MEDS: NITROGLYCERIN SL 0.4 MG/TAB TAB SL SCH ×2 (19:59→20:20)
[2018-07-13 20:14] LABS: D Dimer 4050 ug/L FEU (0-500)
[2018-07-13] MEDS ORDERED: OPTIRAY 320 125ml IV PRN (20:43)
--- NOTE | 2018-07-13 20:55 | CT Scan Report ---
CT angio chest PE protocol CT DOSE: 761.98 mGy.cm HISTORY: Chest pain. Dyspnea. +dd and cp TECHNIQUE: Multiaxial CT images of the chest were performed following the intravenous administration of contrast to evaluate the pulmonary arteries. Maximal intensity projection images were also obtaine d. A dose lowering technique was utilized adhering to the principles of ALARA. COMPARISON STUDY: None. FINDINGS: There is a normal caliber thoracic aorta with no evidence for dissection. There is no evide nce for pulmonary embolus. No pleural effusions. No pneumothorax. The liver and spleen are unremarkab le. No mediastinal or hilar lymphadenopathy. The central airways are patent. The lungs are clear. IMPRESSION: No evidence for pulmonary embolus. The lungs are clear The above report was generated using voice recognition software. It may contain grammatical, syntax or spelling errors. Electronically signed by: Joe Holley M.D. 07/13/2018 8:54 PM
[2018-07-13] MEDS ORDERED: MoRPHine SULFATE 4 MG/ML 1 ML CARP\\VIAL IV STA (21:04)
[2018-07-13] MEDS ORDERED: MoRPHine SULFATE 2 MG/ML CARP ONE (23:16)
[2018-07-14] MEDS ORDERED: ONDANSETRON INJ 2 MG/ML 2 ML VIAL IV PRN (00:20)
[2018-07-14] MEDS ORDERED: ACETAMINOPHEN 325 MG TAB PO PRN (00:20)
[2018-07-14] MEDS: MoRPHine SULFATE 2 MG/ML CARP IV PRN ×11 (00:25→22:00)
--- NOTE | 2018-07-14 00:36 | History and Physical Report ---
DATE OF ADMISSION: 07/13/2018 CHIEF COMPLAINT: Chest pain. HISTORY OF PRESENT ILLNESS: This is a 58-year-old male with past medical history significant for peptic ulcer disease, gastric ulcers, history of hypertension, right hip avascular necrosis, recently had surgery done of his right hip at DC in [place] last week, chronic narcotic abuse. The patient has history of CAD status post cardiac catheterization done about 4-5 years ago at DC at [place] that showed 30% blockage. Presents with chest pain. The patient states today afternoon at 2:00 p.m., he started noticing chest pain all over chest radiating to the left arm and left neck about 9/10 in severity, pressure like feeling like someone sitting on chest associated with some shortness of breath and some sweating. Denies any nausea. Has some mild dizziness, no headache, no blurred visions. No ear ache, no runny nose, no sore throat, no difficulty swallowing. No abdominal pain. Normal bowel and bladder movements. No swelling of the legs. No rash. Before this episode, the patient was active and able to walk and climb steps okay. The patient is worried because his brother of AR at age 50s, dad had AR in his 50s, and his grandparents in the 50s because of AR. Nitro did not help him much. Morphine had eased his pain, but right now the pain is back. Hemodynamically stable. ALLERGIES: KETOROLAC. PAST MEDICAL HISTORY: As mentioned above. PAST SURGICAL HISTORY: Status post tonsillectomy, status post cholecystectomy, status post appendectomy, status post vasectomy, status post bilateral knee replacement, status post right hip surgery. FAMILY HISTORY: Significant for heart disease. SOCIAL HISTORY: No smoking. No alcohol use. No substance abuse. MEDICATIONS: The patient is currently on atenolol 25 mg p.o. daily, lisinopril 20 mg p.o. daily, oxycodone 5 mg p.o. q. 4 hours p.r.n., Protonix 40 mg p.o. b.i.d., sucralfate 1 gram p.o. a.c. and at bedtime. REVIEW OF SYMPTOMS: As per HPI. Rest of the review of symptoms negative. PHYSICAL EXAMINATION: GENERAL: The patient is of moderate build, not in acute distress. VITAL SIGNS: Temperature 37.4, pulse 77, respiratory rate 16, blood pressure 126/78, oxygen 99% room air. HEENT: No pallor, no icterus. Pupils equal, round, and reactive to light. NECK: No JVD, no neck masses, no carotid bruit. CARDIOVASCULAR: S1, S2 heard, regular rate and rhythm, no murmur, no gallop. RESPIRATORY SYSTEM: Normal AP diameter. No accessory muscle use. No wheezing, no crackles. ABDOMEN: Soft, bowel sounds present, nontender. No distention. CENTRAL NERVOUS SYSTEM: Cranial nerves II through XII grossly intact, nonfocal. EXTREMITIES: No edema, no erythema. LABORATORY DATA: WBC 7.7, hemoglobin 12.2, hematocrit 35.4, platelets 285. D-dimer 4050. Sodium 142, potassium 3.9, chloride 110, bicarbonate 24, BUN 18, creatinine 1.06, serum glucose 87, calcium 8.9, total bilirubin 0.3, AST 50, ALT 32, alkaline phosphatase 103. Troponin I less than 0.015. Lipase 120. IMAGING DATA: CT of the chest, no evidence for pulmonary embolism. Lungs are clear. Chest x-ray, no acute chest. EKG: Normal sinus rhythm with rate of 78, no acute ST changes seen. ASSESSMENT AND PLAN: This is a 58-year-old male who presents with chest pain. 1. Chest pain. History of nonobstructive coronary artery disease. States that 4-5 years ago cardiac cath showed 30% blockage. The patient is on atenolol, which will continue. Initial workup is negative. We will follow serial cardiac enzymes, echocardiogram, and keep him n.p.o. until seen by cardiology in a.m. Monitor on tele floor. 2. History of gastroesophageal reflux disease and gastric ulcers. Protonix and sucralfate, which he will continue. 3. History of hypertension, on atenolol and lisinopril, which he will continue. 4. Deep venous thrombosis prophylaxis, sequential compression devices for now. 5. Disposition: Observe in tele floor. Level 1 full code. MTDD
[2018-07-14] MEDS: NITROGLYCERIN 2% OINTMENT 30GM TUBE EXT SCH ×4 (00:53→19:08)
--- NOTE | 2018-07-14 01:29 | Emergency Department Note ---
Entered by Reinaldo Kinney acting as a scribe for Kaden Mulligan DO History of Present Illness General Chief complaint: Chest Pain Stated complaint: CHEST PAIN, SOB, STOMACH PAIN Source: patient History of Present Illness Provider complaint: Chest pain Onset (ago): hour(s) 4 Location: chest Radiation: back and extremity (Left upper) Severity: similar to prior episodes Pain Consistency: + constant Maximum Pain Intensity: 8 Quality: + other ("heaviness") Relieved By: + none Exacerbated By: + none Associated symptoms: + shortness of breath The patient is a 58 year old male who presents to the Emergency Room with complaints of constant chest pain that started about 4 hours ago, around 1500. He describes the pain as a heaviness and states "it feels as though someone is sitting on my chest". The pain also radiates to the patient's left arm and back. The patient also notes he has some shortness of breath with the pain. He has had pain like this a while ago and he had a catheterization done that showed 30% blockage but he did not get any stents. He also has a history of a blood clot that occurred 6 years ago and a family history of CAD and MS but no family history of sudden at a young age. With his history of CAD he also has a history of HTN but no issues with his aorta. En route the patient received 325mg of Aspirin but his pain persist. He also mentioned that he had a complete right hip replacement 1 week ago and it is healing well. Per his previous medical record, he was seen here in March 2018 and treated for a GI bleed. The patient is a non smoker. Home Medications Home Medications Medication Instructions Recorded Confirmed Type atenolol 25 mg PO DAILY 03/16/18 07/13/18 History lisinopril 20 mg PO DAILY 03/16/18 07/13/18 History oxycodone 5 mg PO Q4H PRN 03/16/18 07/13/18 History pantoprazole 40 mg PO BID 03/16/18 07/13/18 History sucralfate [Carafate] 1 g PO ACHS 03/17/18 07/13/18 History Allergies Allergy/AdvReac Type Severity Reaction Status Date / Time ketorolac Allergy Severe SHORTNESS Verified 07/13/18 20:13 OF BREATH,RASH Past Med/Surg History Medical History Avascular necrosis of bone of right hip (Chronic) PUD (peptic ulcer disease) (Resolved) GERD (gastroesophageal reflux disease) (Chronic) HTN (hypertension) (Chronic) UGIB (upper gastrointestinal bleed) (Resolved) Osteoarthritis (Chronic) Surgical History S/P tonsillectomy (Resolved) S/P cholecystectomy (Resolved) S/P appendectomy (Resolved) H/O vasectomy (Ruled-out) S/P knee replacement (Resolved) Family History Father Coronary heart disease T2DM (type 2 diabetes mellitus) Mother Pancreatic cancer Hypertension Social History Preferred Language: Cuban Communication Ability: Effective Wind Site Manager Required: No Beliefs That Will Affect Care: None Current Living Situation: Significant Other Other Information That Helps Us Care for You: No Feels Safe at Home: Yes Smoking Status: Never smoker Do You Dip or Chew Tobacco: No Second Hand Exposure: Yes (Girlfriend smokes but goes outside. Previous smoked. Mother did too.) Hx Alcohol Use: No Hx Substance Use: No Review of Systems See HPI for pertinent positives & negatives. and A total of 10 systems reviewed and were otherwise negative Physical Exam Vital Signs Vital Signs - 24 hr 07/13/18 18:26 07/13/18 19:06 07/13/18 19:11 Temperature 37.4 C Temperature Source Oral Sepsis Recent Fever Within 48 Hours No Sepsis New/Unexplained Change in Mental Status No Sepsis Action Taken by Nursing No Action Required Pulse Rate 88 86 85 Pulse Rate [Left Radial] Pulse Rate from SpO2 Sensor Pulse Rhythm [Left Radial] Pulse Strength [Left Radial] Respiratory Rate 20 18 17 Respiratory Effort / Characteristics Non-Labored Spontaneous Respiratory Depth Normal Respiratory Pattern Blood Pressure 145/97 H 165/82 H 161/83 H Blood Pressure [Left Arm] Blood Pressure Mean 113 109 109 Blood Pressure Mean [Left Arm] Blood Pressure Position [Left Arm] Pulse Oximetry 97 Oxygen Delivery Method Room Air 07/13/18 19:16 07/13/18 19:21 07/13/18 19:25 Temperature Temperature Source Sepsis Recent Fever Within 48 Hours Sepsis New/Unexplained Change in Mental Status Sepsis Action Taken by Nursing Pulse Rate 92 H 87 79 Pulse Rate [Left Radial] Pulse Rate from SpO2 Sensor Pulse Rhythm [Left Radial] Pulse Strength [Left Radial] Respiratory Rate 14 17 12 Respiratory Effort / Characteristics Respiratory Depth Respiratory Pattern Blood Pressure 134/74 125/77 138/81 Blood Pressure [Left Arm] Blood Pressure Mean 94 93 100 Blood Pressure Mean [Left Arm] Blood Pressure Position [Left Arm] Pulse Oximetry Oxygen Delivery Method 07/13/18 19:30 07/13/18 19:31 07/13/18 19:36 Temperature Temperature Source Sepsis Recent Fever Within 48 Hours Sepsis New/Unexplained Change in Mental Status Sepsis Action Taken by Nursing Pulse Rate 79 78 78 Pulse Rate [Left Radial] Pulse Rate from SpO2 Sensor Pulse Rhythm [Left Radial] Pulse Strength [Left Radial] Respiratory Rate 18 15 14 Respiratory Effort / Characteristics Respiratory Depth Respiratory Pattern Blood Pressure 111/78 142/79 H Blood Pressure [Left Arm] Blood Pressure Mean 89 100 Blood Pressure Mean [Left Arm] Blood Pressure Position [Left Arm] Pulse Oximetry Oxygen Delivery Method 07/13/18 19:41 07/13/18 19:46 07/13/18 20:01 Temperature Temperature Source Sepsis Recent Fever Within 48 Hours Sepsis New/Unexplained Change in Mental Status Sepsis Action Taken by Nursing Pulse Rate 84 92 H 82 Pulse Rate [Left Radial] Pulse Rate from SpO2 Sensor 81 Pulse Rhythm [Left Radial] Pulse Strength [Left Radial] Respiratory Rate 15 17 21 Respiratory Effort / Characteristics Respiratory Depth Respiratory Pattern Blood Pressure 144/88 H 139/78 151/71 H Blood Pressure [Left Arm] Blood Pressure Mean 106 98 97 Blood Pressure Mean [Left Arm] Blood Pressure Position [Left Arm] Pulse Oximetry 98 Oxygen Delivery Method 07/13/18 20:19 07/13/18 20:31 07/13/18 20:52 Temperature Temperature Source Sepsis Recent Fever Within 48 Hours Sepsis New/Unexplained Change in Mental Status Sepsis Action Taken by Nursing Pulse Rate 77 84 81 Pulse Rate [Left Radial] Pulse Rate from SpO2 Sensor 76 Pulse Rhythm [Left Radial] Pulse Strength [Left Radial] Respiratory Rate 13 15 15 Respiratory Effort / Characteristics Respiratory Depth Respiratory Pattern Blood Pressure 128/81 124/81 132/82 Blood Pressure [Left Arm] Blood Pressure Mean 96 95 98 Blood Pressure Mean [Left Arm] Blood Pressure Position [Left Arm] Pulse Oximetry 99 Oxygen Delivery Method 07/13/18 21:01 07/13/18 21:31 07/13/18 21:59 Temperature Temperature Source Sepsis Recent Fever Within 48 Hours Sepsis New/Unexplained Change in Mental Status Sepsis Action Taken by Nursing Pulse Rate 81 78 71 Pulse Rate [Left Radial] Pulse Rate from SpO2 Sensor 80 Pulse Rhythm [Left Radial] Pulse Strength [Left Radial] Respiratory Rate 24 15 20 Respiratory Effort / Characteristics Respiratory Depth Respiratory Pattern Blood Pressure 132/73 119/75 134/84 Blood Pressure [Left Arm] Blood Pressure Mean 92 89 100 Blood Pressure Mean [Left Arm] Blood Pressure Position [Left Arm] Pulse Oximetry 99 Oxygen Delivery Method 07/13/18 22:00 07/13/18 23:20 07/14/18 00:26 Temperature 37.4 C Temperature Source Oral Sepsis Recent Fever Within 48 Hours Sepsis New/Unexplained Change in Mental Status Sepsis Action Taken by Nursing Pulse Rate 77 83 Pulse Rate [Left Radial] 74 Pulse Rate from SpO2 Sensor Pulse Rhythm [Left Radial] Regular Pulse Strength [Left Radial] Normal Respiratory Rate 16 18 18 Respiratory Effort / Characteristics Non-Labored Respiratory Depth Normal Respiratory Pattern Regular Blood Pressure 126/78 135/76 Blood Pressure [Left Arm] 161/92 H Blood Pressure Mean 94 Blood Pressure Mean [Left Arm] 115 Blood Pressure Position [Left Arm] Sitting Pulse Oximetry 98 96 Oxygen Delivery Method Room Air Room Air GENERAL: Sitting up in bed, alert, chronically ill appearing, well nourished, no distress, non-toxic EYE EXAM: normal conjunctiva. OROPHARYNX: no exudate, no erythema, lips, buccal mucosa, and tongue normal and mucous membranes are moist NECK: supple, no nuchal rigidity, no adenopathy, non-tender LUNGS: Clear to auscultation. Normal chest wall mechanics HEART: no murmurs, S1 normal and S2 normal ABDOMEN: abdomen soft, non-tender, normo-active bowel, sounds, no masses, no rebound or guarding. BACK: Back is symmetrical on inspection and there is no deformity, no midline tenderness, no CVA tenderness. SKIN: no rashes and no bruising UPPER EXTREMITIES: upper extremities are grossly normal. Radial pulses equal. LOWER EXTREMITIES: No pitting edema. Calves equal. NEURO EXAM: Normal sensorium, cranial nerves II-XII grossly intact, normal speech, no gross weakness of arms, no gross weakness of legs. Course ED COURSE: Vital signs were reviewed and showed hypertension The patients medical record was reviewed The above diagnostic studies were performed and reviewed. ED treatments and interventions as stated above. 1850: The patient was evaluated in room B04B. A complete history and physical examination was performed. 2105: I updated the patient on results. He states his pain improved after the Nitro but it is now coming back so I am going to order him pain medication. 2136: [facility] about the patient's case and he is going to accept him for further evaluation. 2199: Upon reevaluation, the patient is resting in bed. I discussed my findings with the patient and he understands and agrees with the treatment plan. Based on the patients age, coexisting illnesses, exam and lab findings the decision to treat as an inpatient was made. The patient remained stable while under my care. The patient will be evaluated for further management. Administered Medications Morphine Sulfate (Morphine Sulfate) 2 mg IV Q30M PRN PRN Reason: Chest Pain Stop: 07/28/18 00:19 Last Admin: 07/14/18 00:55 Dose: 2 mg Documented by: [id number] Admin: 07/14/18 00:25 Dose: 2 mg Documented by: [id number] Nitroglycerin (Nitro-Bid 2%) 1 inch EXT Q6 VELIA Stop: 08/13/18 00:19 Last Admin: 07/14/18 00:53 Dose: 1 inch Documented by: [id number] Discontinued Medications Ioversol (Optiray 320 125ml) 118 ml IV ONCE PRN PRN Reason: Interaction Checking Stop: 07/17/18 20:42 Last Admin: 07/13/18 20:44 Dose: 118 ml Documented by: [id number] Morphine Sulfate (Morphine Sulfate) 4 mg IV NOW STA Stop: 07/13/18 21:05 Last Admin: 07/13/18 21:12 Dose: 4 mg Documented by: [id number] Morphine Sulfate (Morphine Sulfate) Confirm Administered Dose 2 mg .ROUTE .STK- MED ONE Stop: 07/13/18 23:17 Last Admin: 07/13/18 23:18 Dose: 2 mg Documented by: [id number] Nitroglycerin (Nitrostat) 0.4 mg SL NOW STA Stop: 07/13/18 18:56 Last Admin: 07/13/18 19:13 Dose: 0.4 mg Documented by: [id number] Nitroglycerin (Nitrostat) 0.4 mg SL PRN VELIA Stop: 08/12/18 19:59 Last Admin: 07/13/18 20:20 Dose: 0.4 mg Documented by: [id number] Admin: 07/13/18 19:59 Dose: 0.4 mg Documented by: [id number] Medical Decision Making Differential Diagnosis Differential diagnoses includes but is not limited to acute coronary syndrome, myocardial infarction, pericarditis, pulmonary embolus, aortic dissection, pneumonia, pneumothorax, musculoskeletal, shingles, esophageal. Medical Records Attestation: I reviewed the patient's medical records. Home Medications Current Medication List: was personally reviewed by me Laboratory Data Attestation: I reviewed the patient's lab results. Result diagrams: 07/13/18 19:12 07/13/18 19:12 Lab Results 07/13/18 07/13/18 07/13/18 Range/Units 19:12 19:12 19:12 WBC 7.72 (4.8-10.8) K/uL RBC 4.11 L (4.7-6.1) M/uL Hgb 12.2 L (14.0-18.0) g/dL Hct 35.4 L (42-52) % MCV 86.1 (80-100) fL MCH 29.7 (25-34) pg MCHC 34.5 (32-36) g/dL RDW Std Deviation 41.4 (36.4-46.3) fL RDW Coeff of Kim 13.3 (11.5-14.5) % Plt Count 285 (130-400) K/uL MPV 8.6 (7.4-10.4) fL Immature Gran % (Auto) 0.3 % Neut % (Auto) 66.0 % Lymph % (Auto) 15.4 % Morehouse % (Auto) 6.9 % Eos % (Auto) 10.6 % Baso % (Auto) 0.8 % Immature Gran # (Auto) 0.02 (0.00-0.02) K/uL Neut # (Auto) 5.10 (1.4-6.5) K/uL Lymph # (Auto) 1.19 L (1.2-3.4) K/uL Morehouse # (Auto) 0.53 (0.11-0.59) K/uL Eos # (Auto) 0.82 H (0-0.5) K/uL Baso # (Auto) 0.06 (0-0.2) K/uL D-Dimer 4050 H* (0-500) ug/L FEU Sodium 142 (136-145) mmol/L Potassium 3.9 (3.5-5.1) mmol/L Chloride 110 H (98-107) mmol/L Carbon Dioxide 24 (21-32) mmol/L Anion Gap 8.0 (3-11) BUN 18 (7-18) mg/dl Creatinine 1.06 (0.6-1.4) mg/dl Est Cr Clr Drug Dosing 88.4 ml/min Est GFR ( Amer) 89.9 Est GFR (Non-Af Amer) 77.5 BUN/Creatinine Ratio 17.2 (10-20) Glucose 87 (70-99) mg/dl Calcium 8.9 (8.5-10.1) mg/dl Total Bilirubin 0.3 (0.2-1) mg/dl AST 16 (15-37) U/L ALT 32 (12-78) U/L Alkaline Phosphatase 103 (45-117) U/L Troponin I < 0.015 (0-0.045) ng/ml Total Protein 7.4 (6.4-8.2) gm/dl Albumin 4.0 (3.4-5.0) gm/dl Globulin 3.4 (2.5-4.0) gm/dl Albumin/Globulin Ratio 1.2 (0.9-2) Lipase 120 (73-393) U/L 07/14/18 Range/Units 00:29 WBC (4.8-10.8) K/uL RBC (4.7-6.1) M/uL Hgb (14.0-18.0) g/dL Hct (42-52) % MCV (80-100) fL MCH (25-34) pg MCHC (32-36) g/dL RDW Std Deviation (36.4-46.3) fL RDW Coeff of Kim (11.5-14.5) % Plt Count (130-400) K/uL MPV (7.4-10.4) fL Immature Gran % (Auto) % Neut % (Auto) % Lymph % (Auto) % [place]house % (Auto) % Eos % (Auto) % Baso % (Auto) % Immature Gran # (Auto) (0.00-0.02) K/uL Neut # (Auto) (1.4-6.5) K/uL Lymph # (Auto) (1.2-3.4) K/uL Morehouse # (Auto) (0.11-0.59) K/uL Eos # (Auto) (0-0.5) K/uL Baso # (Auto) (0-0.2) K/uL D-Dimer (0-500) ug/L FEU Sodium (136-145) mmol/L Potassium (3.5-5.1) mmol/L Chloride (98-107) mmol/L Carbon Dioxide (21-32) mmol/L Anion Gap (3-11) BUN (7-18) mg/dl Creatinine (0.6-1.4) mg/dl Est Cr Clr Drug Dosing ml/min Est GFR ( Amer) Est GFR (Non-Af Amer) BUN/Creatinine Ratio (10-20) Glucose (70-99) mg/dl Calcium (8.5-10.1) mg/dl Total Bilirubin (0.2-1) mg/dl AST (15-37) U/L ALT (12-78) U/L Alkaline Phosphatase (45-117) U/L Troponin I < 0.015 (0-0.045) ng/ml Total Protein (6.4-8.2) gm/dl Albumin (3.4-5.0) gm/dl Globulin (2.5-4.0) gm/dl Albumin/Globulin Ratio (0.9-2) Lipase (73-393) U/L Imaging Data Radiologist's Impression: Radiology results as stated below per my review and the radiologist's interpretation: XR chest 1V portable CLINICAL HISTORY: Chest Pain dyspnea COMPARISON STUDY: 10/15/2017 FINDINGS: The bones soft tissues and hemidiaphragms are normal. The cardiomediastinal silhouette is normal. The lungs are clear. The pulmonary vasculature is normal. IMPRESSION: Negative chest. The above report was generated using voice recognition software. It may contain grammatical, syntax or spelling errors. Electronically signed by: Joe Holley M.D. 07/13/2018 7:[address] angio chest PE protocol CT DOSE: 761.98 mGy.cm HISTORY: Chest pain. Dyspnea. +dd and cp TECHNIQUE: Multiaxial CT images of the chest were performed following the intravenous administration of contrast to evaluate the pulmonary arteries. Maxim al intensity projection images were also obtained. A dose lowering technique was utilized adhering to the principles of ALARA. COMPARISON STUDY: None. FINDINGS: There is a normal caliber thoracic aorta with no evidence for dissection. There is no evidence for pulmonary embolus. No pleural effusions. No pneumothorax. The liver and spleen are unremarkable. No mediastinal or hilar lymphadenopathy. The central airways are patent. The lungs are clear. IMPRESSION: No evidence for pulmonary embolus. The lungs are clear The above report was generated using voice recognition software. It may contain grammatical, syntax or spelling errors. Electronically signed by: Joe Holley M.D. 07/13/2018 8:54 PM ECG Data Attestation: I personally reviewed and interpreted this ECG as follows: Indication: chest pain Rate (beats per minute): 78 Rhythm: normal sinus Findings: + other (T wave flattening in aVL) and + left axis deviation; no PVC Blood Pressure Blood Pressure Findings: Elevated blood pressure Blood Pressure Disposition: further management by hospitalist MARVIN Narrative Patient is a 58-year-old male who presents the ER for precordial chest pain. This started around 3 PM today. 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 He does have left arm pain jaw pain and shortness of breath with this. He took aspirin prior to arrival. History of hypertension and multiple MIs and his family is in the early 50s. She was given nitro and pain improved. Pain eventually recurred he was given morphine with improvement. Labs were obtained and showed no significant leukocytosis or anemia. BMP was unremarkable along with LFTs bilirubin and lipase. Troponin was negative. D- dimer was elevated. CT PE was negative. EKG shows no acute ischemia. Patient was updated bedside. Discussed with the hospitalist patient was observed overnight. Impression & Plan Chest pain, precordial Discharge Plan Visit Data *Final* Discharge Date/Time: 07/13/18 23:20 Chief Complaint: Chest Pain Stated Complaint: CHEST PAIN, SOB, STOMACH PAIN ED Provider: Kaden Mulligan Discharge Problem: Chest pain, precordial Patient Disposition: Admitted As Inpatient Discharge Instructions Interventions: ED Discharge Assessment Last Done: 07/13/18 23:20 The scribe's documentation has been prepared under my direction and personally reviewed by me in its entirety. I confirm that the note above accurately reflects all work, treatment, procedures, and medical decision making performed by me.
[2018-07-14 06:13] LABS: Basophils # (auto) 0.06 K/uL (0-0.2); Basophils % (auto) 0.7 %; Eosinophils # (auto) 0.91 K/uL (0-0.5); Eosinophils % (auto) 11.2 %; Hematocrit (blood only) 33.9 % (42-52); Hemoglobin 11.4 g/dL (14.0-18.0); Immature Granulocytes # (auto) 0.02 K/uL (0.00-0.02); Immature Granulocytes % (auto) 0.2 %; Lymphocytes # (auto) 1.83 K/uL (1.2-3.4); Lymphocytes % (auto) 22.5 %; Mean Corpuscular Hgb Conc 33.6 g/dL (32-36); Mean Corpuscular Volume 86.9 fL (80-100); Mean Platelet Volume 8.5 fL (7.4-10.4); Monocytes # (auto) 0.52 K/uL (0.11-0.59); Monocytes % (auto) 6.4 %; Neutrophils # (auto) 4.78 K/uL (1.4-6.5); Platelet Count 256 K/uL (130-400); RDW Coefficient of Variation 13.6 % (11.5-14.5); RDW Standard Deviation 42.9 fL (36.4-46.3); White Blood Count 8.12 K/uL (4.8-10.8)
[2018-07-14 06:48] LABS: BUN Creatinine Ratio 21.6 (10-20); Blood Urea Nitrogen 18 mg/dl (7-18); Calcium 8.6 mg/dl (8.5-10.1); Carbon Dioxide 29 mmol/L (21-32); Chloride 108 mmol/L (98-107); Creatinine Clr Calc Pharmacy 120.1 ml/min; Est GFR (African American) 112.7; Est GFR (Non-African American) 97.2; Glucose 81 mg/dl (70-99); Magnesium 2.3 mg/dl (1.8-2.4); Potassium 3.9 mmol/L (3.5-5.1); Sodium 140 mmol/L (136-145)
[2018-07-14 06:53] LABS: Troponin I < 0.015 ng/ml (0-0.045)
[2018-07-14] MEDS: OXYCODONE HCL IR 5 MG TAB (IMMEDIATE RELEASE) PO PRN ×3 (07:58→20:20)
[2018-07-14] MEDS: SUCRALFATE 1 GM TAB PO SCH ×4 (08:00→20:19)
[2018-07-14] MEDS: LISINOPRIL 20 MG TAB PO SCH (08:00)
[2018-07-14] MEDS: PANTOprazole 40 MG TAB PO SCH ×2 (08:00→20:20)
[2018-07-14] MEDS: ATENOLOL 25 MG TABLET PO SCH (08:00)
--- NOTE | 2018-07-14 10:01 | Cardiology Consultation ---
Date of Consultation July 14, 2018 Assessment & Plan (1) Chest pain, precordial: The patient has a previous history of coronary artery disease by cardiac catheterization 5 years ago. He is not a good candidate for a stress test due to his inability to ambulate on a treadmill and previous stress test which have been equivocal. I believe the best way to evaluate him is to proceed directly with a cardiac catheterization. I have explained the risk benefit and intent of the procedure to him including the potential for a catheter-based intervention such as balloon angioplasty or intracoronary stenting. He had right hip surgery recently and we will try to gain access through the radial artery. If we are unsuccessful then the left femoral artery will have to be accessed. Patient understands the risks and is willing to proceed. (2) Avascular necrosis of bone of right hip: Recent surgery on his right hip (3) CAD (coronary artery disease): (4) PUD (peptic ulcer disease): The patient does have a history of gastritis with previous EGDs. His pain could potentially be from peptic ulcer disease. History of Present Illness Attending Physician: Hugh Conner DO History of Present Illness This is a 58-year-old male patient who is had most of his healthcare completed through the [facility] system in [place]. He has had episodes of chest pain in the past with abnormal pharmacologic nuclear stress test. Approximately 5 years ago he underwent a cardiac catheterization in [place] and was told that he had a 30% obstruction and no need for intervention. Within the past 1 to 2 weeks he had right hip surgery for avascular necrosis. The patient had a successful surgery completed without sequela. Over the past several days he is noticed some chest discomfort with activity relieved with rest. He presented to the emergency department with the above symptoms. His d-dimer was elevated and he had a CT of the chest which was negative for pulmonary emboli. He was admitted to the hospital and his cardiac markers have been negative. His EKG shows no acute changes. He has no prior history of diabetes or cigarette smoking. He is treated for hypertension. Allergies Allergy/AdvReac Type Severity Reaction Status Date / Time ketorolac Allergy Severe SHORTNESS Verified 07/13/18 20:13 OF BREATH,RASH Home Medications Home Medications Medication Instructions Recorded Confirmed Type atenolol 25 mg PO DAILY 03/16/18 07/13/18 History lisinopril 20 mg PO DAILY 03/16/18 07/13/18 History oxycodone 5 mg PO Q4H PRN 03/16/18 07/13/18 History pantoprazole 40 mg PO BID 03/16/18 07/13/18 History sucralfate [Carafate] 1 g PO ACHS 03/17/18 07/13/18 History Patient History Medical History Avascular necrosis of bone of right hip (Chronic) PUD (peptic ulcer disease) (Resolved) GERD (gastroesophageal reflux disease) (Chronic) HTN (hypertension) (Chronic) UGIB (upper gastrointestinal bleed) (Resolved) Osteoarthritis (Chronic) Surgical History S/P tonsillectomy (Resolved) S/P cholecystectomy (Resolved) S/P appendectomy (Resolved) H/O vasectomy (Ruled-out) S/P knee replacement (Resolved) Family History Father Coronary heart disease T2DM (type 2 diabetes mellitus) Mother Pancreatic cancer Hypertension Social History Preferred Language: Arabic Communication Ability: Effective Sales Order Clerk Required: No Beliefs That Will Affect Care: None Current Living Situation: Significant Other Other Information That Helps Us Care for You: No Feels Safe at Home: Yes Smoking Status: Never smoker Do You Dip or Chew Tobacco: No Second Hand Exposure: Yes (Girlfriend smokes but goes outside. Previous smoked. Mother did too.) Hx Alcohol Use: No Hx Substance Use: No Review of Systems Review of Systems: Review of Systems: See HPI for pertinent positives. All other 10 point review of systems are negative. The patient is still walking with a cane post right hip surgery Physical Exam Physical Exam: General: no acute distress and stated age Head: normocephalic, no masses, lesions, tenderness or abnormalities Eyes: conjunctiva are pink and non-injected, sclera clear Neck: supple, no adenopathy, no bruits, normal jugular venous pulse, no hepatojugular reflux Chest: normal shape and normal respiratory effort Lungs: clear to auscultation and percussion Cardiac Exam: - regular rate & rhythm, no murmurs gallops or rubs - normal S1, normal S2 Pulses: 2(+) throughout Abdomen: abdomen soft, non-tender, no abnormal masses and no hepatosplenomegaly Musculoskeletal: no gait disturbance, no joint inflammation, no deforming arthritis Extremities: Recent right hip surgery Neuro: grossly normal exam Results & Data Vital Signs (Past 12 Hours) Vital Signs Temp Pulse Pulse Pulse Resp BP BP 07/14/18 08:04 37.1 C 73 16 07/14/18 07:36 36.9 C 77 19 07/14/18 05:43 122/65 07/14/18 03:30 36.7 C 69 16 138/89 07/14/18 00:26 37.4 C 74 18 161/92 H 07/13/18 23:20 83 18 135/76 07/13/18 22:00 77 16 126/78 07/13/18 21:59 71 20 134/84 BP Pulse Ox 07/14/18 08:04 121/71 96 07/14/18 07:36 110/70 96 07/14/18 05:43 07/14/18 03:30 96 07/14/18 00:26 96 07/13/18 23:20 98 07/13/18 22:00 07/13/18 21:59 Laboratory Results Laboratory Results - last 24 hr 07/13/18 07/13/18 07/13/18 19:12 19:12 19:12 WBC 7.72 RBC 4.11 L Hgb 12.2 L Hct 35.4 L MCV 86.1 MCH 29.7 MCHC 34.5 RDW Std Deviation 41.4 RDW Coeff of Kim 13.3 Plt Count 285 MPV 8.6 Immature Gran % (Auto) 0.3 Neut % (Auto) 66.0 Lymph % (Auto) 15.4 Rawlins % (Auto) 6.9 Eos % (Auto) 10.6 Baso % (Auto) 0.8 Immature Gran # (Auto) 0.02 Neut # (Auto) 5.10 Lymph # (Auto) 1.19 L [place] # (Auto) 0.53 Eos # (Auto) 0.82 H Baso # (Auto) 0.06 D-Dimer 4050 H* Sodium 142 Potassium 3.9 Chloride 110 H Carbon Dioxide 24 Anion Gap 8.0 BUN 18 Creatinine 1.06 Est Cr Clr Drug Dosing 88.4 Est GFR ( Amer) 89.9 Est GFR (Non-Af Amer) 77.5 BUN/Creatinine Ratio 17.2 Glucose 87 Calcium 8.9 Magnesium Total Bilirubin 0.3 AST 16 ALT 32 Alkaline Phosphatase 103 Troponin I < 0.015 Total Protein 7.4 Albumin 4.0 Globulin 3.4 Albumin/Globulin Ratio 1.2 Lipase 120 07/14/18 07/14/18 07/14/18 00:29 05:51 05:51 WBC 8.12 RBC 3.90 L Hgb 11.4 L Hct 33.9 L MCV 86.9 MCH 29.2 MCHC 33.6 RDW Std Deviation 42.9 RDW Coeff of Kim 13.6 Plt Count 256 MPV 8.5 Immature Gran % (Auto) 0.2 Neut % (Auto) 59.0 Lymph % (Auto) 22.5 Rawlins % (Auto) 6.4 Eos % (Auto) 11.2 Baso % (Auto) 0.7 Immature Gran # (Auto) 0.02 Neut # (Auto) 4.78 Lymph # (Auto) 1.83 Rawlins # (Auto) 0.52 Eos # (Auto) 0.91 H Baso # (Auto) 0.06 D-Dimer Sodium 140 Potassium 3.9 Chloride 108 H Carbon Dioxide 29 Anion Gap 3.0 BUN 18 Creatinine 0.84 Est Cr Clr Drug Dosing 120.1 Est GFR ( Amer) 112.7 Est GFR (Non-Af Amer) 97.2 BUN/Creatinine Ratio 21.6 H Glucose 81 Calcium 8.6 Magnesium 2.3 Total Bilirubin AST ALT Alkaline Phosphatase Troponin I < 0.015 < 0.015 Total Protein Albumin Globulin Albumin/Globulin Ratio Lipase Medications Administered Current Inpatient Medications Acetaminophen (Tylenol) 650 mg PO Q4H PRN PRN Reason: Pain or Fever Stop: 08/13/18 00:19 Atenolol (Tenormin) 25 mg PO DAILY [facility] Stop: 08/13/18 08:59 Last Admin: 07/14/18 08:00 Dose: 25 mg Documented by: Sodium Chloride (Nss 1000ml) 1,000 mls @ 1 mls/hr IV .Q24H VELIA Stop: 08/13/18 09:59 Lisinopril (Zestril) 20 mg PO DAILY VELIA Stop: 08/13/18 08:59 Last Admin: 07/14/18 08:00 Dose: 20 mg Documented by: Morphine Sulfate (Morphine Sulfate) 2 mg IV Q30M PRN PRN Reason: Chest Pain Stop: 07/28/18 00:19 Last Admin: 07/14/18 08:50 Dose: 2 mg Documented by: Nitroglycerin (Nitro-Bid 2%) 1 inch EXT Q6 VELIA Stop: 08/13/18 00:19 Last Admin: 07/14/18 05:43 Dose: 1 inch Documented by: Nitroglycerin (Nitrostat) 0.4 mg SL UD PRN PRN Reason: Chest Pain Stop: 08/13/18 00:19 Ondansetron HCl (Zofran) 4 mg IV Q6H PRN PRN Reason: Nausea Stop: 08/13/18 00:19 Oxycodone HCl (Roxicodone Immediate Rel) 5 mg PO Q4H PRN PRN Reason: Pain Stop: 07/28/18 00:19 Last Admin: 07/14/18 07:58 Dose: 5 mg Documented by: Pantoprazole Sodium (Protonix) 40 mg PO BID VELIA Stop: 08/13/18 08:59 Last Admin: 07/14/18 08:00 Dose: 40 mg Documented by: Sucralfate (Carafate Tab) 1 gm PO ACHS VELIA Stop: 08/13/18 07:29 Last Admin: 07/14/18 08:00 Dose: 1 gm Documented by:
[2018-07-14] MEDS: NITROGLYCERIN SL 0.4 MG/TAB TAB SL PRN ×2 (10:38→19:58)
--- NOTE | 2018-07-14 11:13 | Hospitalist Progress Note ---
Date of Service July 14, 2018 Assessment & Plan (1) Chest pain, precordial: (2) CAD (coronary artery disease): (3) Avascular necrosis of bone of right hip: (4) PUD (peptic ulcer disease): (5) GERD (gastroesophageal reflux disease): (6) HTN (hypertension): Patient to go to the [employer] Sales[employer] today. Likely DC tomorrow. Subjective 58-year-old male with past medical history significant for peptic ulcer disease, gastric ulcers, history of hypertension, right hip avascular necrosis, recently had surgery done of his right hip at [facility] in [place] last week, chronic narcotic abuse. The patient has history of CAD status post cardiac catheterization done about 4-5 years ago at [facility] at [place] that showed 30% blockage. Presents with chest pain. The patient states today afternoon at 2:00 p.m., he started noticing chest pain all over chest radiating to the left arm and left neck about 9/10 in severity, pressure like feeling like someone sitting on chest associated with some shortness of breath and some sweating. Denies any nausea. Has some mild dizziness, no headache, no blurred visions. No ear ache, no runny nose, no sore throat, no difficulty swallowing. No abdominal pain. Normal bowel and bladder movements. No swelling of the legs. No rash. Before this episode, the patient was active and able to walk and climb steps okay. The patient is worried because his brother of PA at age 50s, dad had PA in his 50s, and his grandparents in the 50s because of PA. Nitro did not help him much. Morphine had eased his pain, but right now the pain is back. Hemodynamically stable. He was seen by cardiology who will take him to the manager filter. ROS-No Headache, No Visual Changes, No Nausea, No Vomiting, No Fever, No Chills, No Neck Pain or Stiffness, + Chest Pain, No Palpitations, No SOB, No [place], No Cough, No Sputum, No Wheezing, No Abdominal Pain, No Diarrhea, No Hematemesis, No Hemoptysis, No Unexpected Weight Loss, No Flank pain, No Melena, No Hematochezia, No Frequency, No Urgency, No Burning, No Hematuria, No Rashes, No Diaphoresis. Appetite is Normal, Mild Hip Pain Physical Exam Gen-AAO x 3, NAD, Afebrile Head-NCAT, EOMI, PERRLA, Anicteric Sclera, No Posterior Pharyngeal Erythema Neck-Supple, No JVD, No Thyromegaly, No Masses, No LAD, No Bruits Lungs-Clear to Auscultation Bilaterally, No Rales, No Rhonchi, No Wheezing, No Crepitus Chest-No S4, +S1, +S2, No S3, No Murmurs, No Rubs, No Gallops, No Ectopy Abdomen-Soft, Bowel Sounds Present, Non Tender, Non Distended, No Hepatomegaly, No Splenomegaly, No Palpable Masses, No Rebound, No Rigidity, No Guarding Musculoskeletal-Full Range of Motion Bilaterally, No CVAT Extremities-No Cyanosis, No Clubbing, No Edema Nuero-Cranial Nerves II-XII grossly intact, Motor WNL, DTRs WNL, Strength WNL, Non Focal Psych-Normal Mood Results & Data Vital Signs (Past 12 Hours) Vital Signs Temp Pulse Pulse Pulse Resp BP BP 07/14/18 08:04 37.1 C 73 16 07/14/18 07:36 36.9 C 77 19 07/14/18 07:00 70 07/14/18 05:43 122/65 07/14/18 03:30 36.7 C 69 16 138/89 07/14/18 00:26 37.4 C 74 18 161/92 H 07/13/18 23:20 83 18 135/76 BP Pulse Ox 07/14/18 08:04 121/71 96 07/14/18 07:36 110/70 96 07/14/18 07:00 07/14/18 05:43 07/14/18 03:30 96 07/14/18 00:26 96 07/13/18 23:20 98 Current Diagnoses Atherosclerotic heart disease of [place] coronary artery without angina pectoris (07/13/18) Peptic ulcer, site unspecified, unspecified as acute or chronic, without hemorrhage or perforation (07/13/18) Idiopathic aseptic necrosis of right femur (07/13/18) Precordial pain (07/13/18) Allergies ketorolac Allergy (Severe, Verified 07/13/18 20:13) SHORTNESS OF BREATH,RASH Height/Weight/Isolation Height 5 ft 9.5 in Weight 111 kg Chemistry 04/30/19 05/01/19 19:12 05:51 Sodium 142 140 Potassium 3.9 3.9 Chloride 110 H 108 H Carbon Dioxide 24 29 Anion Gap 8.0 3.0 BUN 18 18 Creatinine 1.06 0.84 Glucose 87 81 (1) HTN (hypertension) Hypertension type: unspecified Qualified Code(s): I10 - Essential (primary) hypertension
[2018-07-14] MEDS: SODIUM CHLORIDE 0.9% 1000ML 1,000 ML IV SCH ×2 (13:15→19:40)
[2018-07-14] MEDS ORDERED: fentaNYL citrate 100 MCG/2 ML VIAL ONE (15:23)
[2018-07-14] MEDS ORDERED: MIDAZOLAM HCL 1 MG/ML 2ML VIAL ONE (15:23)
[2018-07-14] MEDS ORDERED: NITROGLYCERIN/D5W 100MCG/ML 20ML SYR ONE (15:23)
[2018-07-14] MEDS ORDERED: NiCARDipine HCL INJ 2.5 MG/ML 10 ML AMP ONE (15:23)
[2018-07-14] MEDS ORDERED: HEPARIN (PORCINE) 1000 UNIT/ML 10 ML (CATH LAB USE ONLY) ONE (15:23)
--- NOTE | 2018-07-14 16:20 | Cardiac Catheterization ---
Date of Service July 14, 2018 Cardiac Cath Report Cardiac Cath Report Procedure: 1. Coronary angiography History: This is a 58-year-old male patient who recently had hip surgery and developed shortness of breath and chest pain with activity. Procedure summary: After informed consent was obtained the patient was taken to the cardiac catheterization lab where he was prepped and draped in the usual manner for a right transradial approach. Preformed 5 Amharic diagnostic catheters were utilized to the coronary angiograms. Following the procedure the patient was returned to his room in stable condition. ACC data: Start time 3:58 PM End time 4:11 PM Opening aortic pressure 97/68 Closing aortic pressure 93/65 Left ventricular pressurevalve not crossed Sedation 1 mg intravenous Versed IV fluid 31 cc normal saline Contrast 54 cc Optiray Fluoroscopy time 2.2 minutes Radiation 1106 mGy DAP 6667 cGy Codominant system AUC score 7 Coronary angiography: Selective injections of the left coronary artery reveals the left main trunk to be widely patent and within normal limits. There is a large ramus branch from the left main trunk which is widely patent and normal the left circumflex artery consist mainly of 2 small to medium sized lateral marginal branches and a third large posterior marginal branch. The left circumflex system is widely patent. The left circumflex system is codominant to the right coronary artery. The LAD wraps around the apex of the heart. The LAD gives off a large diagonal branch. The LAD system is widely patent selective injections of the right coronary artery revealed to be codominant with the left circumflex artery. The right coronary artery is widely patent. Summary: Patient has widely patent coronary anatomy. Recommendations: Follow-up with primary care physician.
[2018-07-14] MEDS ORDERED: SODIUM CHLORIDE 0.9% 1000ML 1,000 ML IV SCH (20:00)
[2018-07-14] MEDS ORDERED: MoRPHine SULFATE 2 MG/ML CARP IV STA (20:14)
[2018-07-15] MEDS: NITROGLYCERIN 2% OINTMENT 30GM TUBE EXT SCH ×2 (00:30→05:41)
[2018-07-15] MEDS: OXYCODONE HCL IR 5 MG TAB (IMMEDIATE RELEASE) PO PRN ×4 (00:31→12:30)
[2018-07-15] MEDS: MoRPHine SULFATE 2 MG/ML CARP IV PRN ×4 (00:31→11:21)
[2018-07-15 00:33] VITALS: TEMP 98.4
[2018-07-15 04:41] VITALS: BP 125/70; O2SAT 96
[2018-07-15 06:56] LABS: Hematocrit (blood only) 32.7 % (42-52); Hemoglobin 11.2 g/dL (14.0-18.0); Mean Corpuscular Hgb Conc 34.3 g/dL (32-36); Mean Corpuscular Volume 86.5 fL (80-100); Mean Platelet Volume 8.3 fL (7.4-10.4); Platelet Count 222 K/uL (130-400); RDW Coefficient of Variation 13.3 % (11.5-14.5); Red Blood Count 3.78 M/uL (4.7-6.1); White Blood Count 7.25 K/uL (4.8-10.8)
[2018-07-15 07:29] LABS: BUN Creatinine Ratio 17.3 (10-20); Calcium 8.5 mg/dl (8.5-10.1); Creatinine Clr Calc Pharmacy 133.1 ml/min; Est GFR (African American) 117.4; Est GFR (Non-African American) 101.3; Potassium 4.1 mmol/L (3.5-5.1)
[2018-07-15] MEDS: SUCRALFATE 1 GM TAB PO SCH ×2 (08:23→11:20)
[2018-07-15] MEDS: ATENOLOL 25 MG TABLET PO SCH (08:24)
[2018-07-15] MEDS: LISINOPRIL 20 MG TAB PO SCH (08:24)
[2018-07-15] MEDS: PANTOprazole 40 MG TAB PO SCH (08:24)
--- NOTE | 2018-07-15 11:07 | Discharge Summary ---
Date of Service July 15, 2018 Admission HPI Per Admitting Provider 58-year-old male with past medical history significant for peptic ulcer disease, gastric ulcers, history of hypertension, right hip avascular necrosis, recently had surgery done of his right hip at [facility] [place] last week, chronic narcotic abuse. The patient has history of CAD status post cardiac catheterization done about 4-5 years ago at [facility] [place] that showed 30% blockage. Presents with chest pain. The patient states today afternoon at 2:00 p.m., he started noticing chest pain all over chest radiating to the left arm and left neck about 9/10 in severity, pressure like feeling like someone sitting on chest associated with some shortness of breath and some sweating. Denies any nausea. Has some mild dizziness, no headache, no blurred visions. No ear ache, no runny nose, no sore throat, no difficulty swallowing. No abdominal pain. Normal bowel and bladder movements. No swelling of the legs. No rash. Before this episode, the patient was active and able to walk and climb steps okay. The patient is worried because his brother of [place] at age 50s, dad had CO in his 50s, and his grandparents in the 50s because of CO. Nitro did not help him much. Morphine had eased his pain, but right now the pain is back. Hemodynamically stable. He was seen by cardiology who will take him to the quotation checker. Admission Exam Per Admitting Provider ROS-No Headache, No Visual Changes, No Nausea, No Vomiting, No Fever, No Chills, No Neck Pain or Stiffness, + Chest Pain, No Palpitations, No SOB, No [place], No Cough, No Sputum, No Wheezing, No Abdominal Pain, No Diarrhea, No Hematemesis, No Hemoptysis, No Unexpected Weight Loss, No Flank pain, No Melena, No Hematochezia, No Frequency, No Urgency, No Burning, No Hematuria, No Rashes, No Diaphoresis. Appetite is Normal, Mild Hip Pain Physical Exam Gen-AAO x 3, NAD, Afebrile Head-NCAT, EOMI, PERRLA, Anicteric Sclera, No Posterior Pharyngeal Erythema Neck-Supple, No JVD, No Thyromegaly, No Masses, No LAD, No Bruits Lungs-Clear to Auscultation Bilaterally, No Rales, No Rhonchi, No Wheezing, No Crepitus Chest-No S4, +S1, +S2, No S3, No Murmurs, No Rubs, No Gallops, No Ectopy Abdomen-Soft, Bowel Sounds Present, Non Tender, Non Distended, No Hepatomegaly, No Splenomegaly, No Palpable Masses, No Rebound, No Rigidity, No Guarding Musculoskeletal-Full Range of Motion Bilaterally, No CVAT Extremities-No Cyanosis, No Clubbing, No Edema Nuero-Cranial Nerves II-XII grossly intact, Motor WNL, DTRs WNL, Strength WNL, Non Focal Psych-Normal Mood Principal Diagnosis Chest Pain GERD HTN CAD Discharge Exam ROS-No Headache, No Visual Changes, No Nausea, No Vomiting, No Fever, No Chills, No Neck Pain or Stiffness, No Chest Pain, No Palpitations, No SOB, No [place], No Cough, No Sputum, No Wheezing, No Abdominal Pain, No Diarrhea, No Hematemesis, No Hemoptysis, No Unexpected Weight Loss, No Flank pain, No Melena, No Hematochezia, No Frequency, No Urgency, No Burning, No Hematuria, No Rashes, No Diaphoresis. Appetite is Normal Physical Exam Gen-AAO x 3, NAD, Afebrile Head-NCAT, EOMI, PERRLA, Anicteric Sclera, No Posterior Pharyngeal Erythema Neck-Supple, No JVD, No Thyromegaly, No Masses, No LAD, No Bruits Lungs-Clear to Auscultation Bilaterally, No Rales, No Rhonchi, No Wheezing, No Crepitus Chest-No S4, +S1, +S2, No S3, No Murmurs, No Rubs, No Gallops, No Ectopy Abdomen-Soft, Bowel Sounds Present, Non Tender, Non Distended, No Hepatomegaly, No Splenomegaly, No Palpable Masses, No Rebound, No Rigidity, No Guarding Musculoskeletal-Full Range of Motion Bilaterally, No CVAT Extremities-No Cyanosis, No Clubbing, No Edema Nuero-Cranial Nerves II-XII grossly intact, Motor WNL, DTRs WNL, Strength WNL, Non Focal Psych-Normal Mood Discharge Data Allergies Allergy/AdvReac Type Severity Reaction Status Date / Time ketorolac Allergy Severe SHORTNESS Verified 07/13/18 20:13 OF BREATH,RASH Consultations 07/13/18 21:04 ED Decision to Admit Stat 07/14/18 08:00 Consult Cardiology Routine Procedures Performed Operation Date: 07/14/18 15:00 Actual Procedures p Cath, Coronaries ONLY (no LV) - Anup Garcia DO s Cineradiography w/Routine Exam - Anup Garcia DO Ordered Studies 07/13/18 20:27 CT angio chest PE protocol Stat 07/14/18 10:40 CL Cath Imgs for PACS use only Routine Current Diagnoses Essential (primary) hypertension (07/13/18) Atherosclerotic heart disease of [place] coronary artery without angina pectoris (07/13/18) Gastro-esophageal reflux disease without esophagitis (07/13/18) Peptic ulcer, site unspecified, unspecified as acute or chronic, without hemorrhage or perforation (07/13/18) Idiopathic aseptic necrosis of right femur (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) Precordial pain (07/13/18) Allergies ketorolac Allergy (Severe, Verified 07/13/18 20:13) SHORTNESS OF BREATH,RASH Height/Weight/Isolation Height 5 ft 9.5 in Weight 111.6 kg Chemistry 07/13/18 07/14/18 07/15/18 19:12 05:51 06:47 Sodium 142 140 139 Potassium 3.9 3.9 4.1 Chloride 110 H 108 H 110 H Carbon Dioxide 24 29 28 Anion Gap 8.0 3.0 1.0 L BUN 18 18 13 Creatinine 1.06 0.84 0.76 Glucose 87 81 85 Hospital Course (1) Chest pain, precordial: (2) CAD (coronary artery disease): (3) Avascular necrosis of bone of right hip: (4) PUD (peptic ulcer disease): (5) GERD (gastroesophageal reflux disease): (6) HTN (hypertension): Patient went to the Production Team Advisor today. No Interventions DC today. Total Time Total Time Spent Total Time Spent (In Minutes): 45 mins Total Time Includes: Examination of the Patient, Discharge Planning, Medication Reconciliation and Communication With Other Providers Discharge Plan Discharge Items Patient Disposition: Home - Self-Care Reason For Visit: CHEST PAIN Discharge Diagnosis: Chest Pain GERD Condition: Good Discharge Goals: Improve disease control and Improve function Activity: Resume your previous activity Lifting: None Bathing: No limitations Sexual Activity: When tolerated Exercise/Sports: Gradually increase as tolerated Driving/Machine Use: No limitations Weightbearing: Left weightbearing and Right weightbearing Non-emergency contact: Primary Care Provider and Lift Truck Operator Call non-emergency contact if: you have any medication questions and your symptoms worsen Follow-up/Referrals: Anup Garcia DO [Lift Truck Operator] - (2-3 weeks) Harriett Sampson MD [Primary Care Provider] - Diet: Heart Healthy Addtl Provider Instructions: Follow up for alternate reasons for CP Prescriptions: New aspirin 81 mg tablet,delayed release (DR/EC) 81 mg PO DAILY Qty: 100 RF: 0 Continued lisinopril 20 mg Tablet 20 mg PO DAILY RF: 0 atenolol 25 mg Tablet 25 mg PO DAILY RF: 0 pantoprazole 40 mg Tablet,Delayed Release (Dr/Ec) 40 mg PO BID RF: 0 oxycodone 5 mg Tablet 5 mg PO Q4H PRN (Reason: Pain) RF: 0 sucralfate [Carafate] 1 gram Tablet 1 g PO ACHS RF: 0 Stand-Alone Forms: Call Back Authorization, [facility] Discharge Orders: Discharge Order (Routine); Ordered 07/15/18 Ordered By: Hugh Conenr Admission Data Admit Date/Time: 07/13/18 23:01 Attending Provider: Hugh Conner Admit Provider: Beck Morgan Primary Care Provider: Harriett Sampson Other Providers: Beck Morgan ; Saravanan Mccormick ; Luis Cintron ; Bakari George ; Prem Ureña ; Anup Garcia ; Joe Garzon ; Philomena Canada ; Nimco Meraz Service: Telemetry Other Interventions: Discharge Summary Assessment (RN) Last Done: 07/15/18 11:27
[2018-07-15 11:32] VITALS: PULSE 69
== END 2018-07-15 12:45 | disposition home or self-care (01) ==
LOC: ED 18:12 → INTOOBSV 23:01 → 2S 23:01 → SUATTDRO 23:01 → 2S 23:20
PROC: CLB.CCO (2018-07-14 15:00)

== ENCOUNTER 2018-10-01 12:25 | Inpatient (IN) ==
[2018-10-01] MEDS ORDERED: FAMOTIDINE 20MG/5ML IV PUSH IV STA (12:45)
[2018-10-01] MEDS ORDERED: SODIUM CHLORIDE 0.9% 1000ML 1,000 ML IV SCH (12:45)
[2018-10-01] MEDS ORDERED: ONDANSETRON INJ 2 MG/ML 2 ML VIAL IV STA (12:45)
[2018-10-01] MEDS ORDERED: MoRPHine SULFATE 4 MG/ML 1 ML CARP\\VIAL IV STA ×2 (13:14→15:46)
[2018-10-01 13:16] LABS: Basophils # (auto) 0.01 K/uL (0-0.2); Basophils % (auto) 0.2 %; Eosinophils # (auto) 0.15 K/uL (0-0.5); Eosinophils % (auto) 2.7 %; Hematocrit (blood only) 41.6 % (42-52); Hemoglobin 14.5 g/dL (14.0-18.0); Immature Granulocytes # (auto) 0.01 K/uL (0.00-0.02); Immature Granulocytes % (auto) 0.2 %; Lymphocytes # (auto) 1.01 K/uL (1.2-3.4); Mean Corpuscular Hgb Conc 34.9 g/dL (32-36); Mean Corpuscular Volume 82.9 fL (80-100); Mean Platelet Volume 9.8 fL (7.4-10.4); Monocytes # (auto) 0.58 K/uL (0.11-0.59); Monocytes % (auto) 10.4 %; Neutrophils # (auto) 3.84 K/uL (1.4-6.5); Neutrophils % (auto) 68.5 %; Platelet Count 209 K/uL (130-400); RDW Coefficient of Variation 13.4 % (11.5-14.5); Red Blood Count 5.02 M/uL (4.7-6.1)
[2018-10-01 13:25] LABS: Albumin Level 4.4 gm/dl (3.4-5.0); BUN Creatinine Ratio 16.4 (10-20); Calcium 9.2 mg/dl (8.5-10.1); Creatinine Clr Calc Pharmacy 110.5 ml/min; Est GFR (African American) 106.6; INR 1.1 (0.9-1.1); Partial Thromboplastin Ratio 0.9; Partial Thromboplastin Time 24.5 Seconds (21.0-31.0); Potassium 3.6 mmol/L (3.5-5.1); Prothrombin Time 11.4 Seconds (9.0-12.0)
[2018-10-01 13:28] LABS: Albumin Globulin Ratio 1.4 (0.9-2); Bilirubin,Total 0.4 mg/dl (0.2-1); Globulin 3.2 gm/dl (2.5-4.0); Total Protein 7.6 gm/dl (6.4-8.2)
--- NOTE | 2018-10-01 13:37 | CT Scan Report ---
CT abd pelvis wo con CLINICAL HISTORY: 58 years-old Male presenting with left abd pain, vomiting.. TECHNIQUE: Multidetector CT of the abdomen and pelvis was performed without the use of intravenous co ntrast. IV contrast: None. One or more dose lowering techniques were used consistent with the princip les of ALARA (as low as reasonably achievable), including automatic exposure control, mA or kV adjust ment to individual patient size, and/or use of iterative reconstruction. COMPARISON: 03/16/2018. CT DOSE (mGy.cm): The estimated cumulative dose is 1348.54 mGy.cm. FINDINGS: Society Editor topogram: Orthopedic hardware. Lung bases: Normal heart size. Coronary artery calcification. No pericardial or pleural effusion. No focal infiltrate or nodule at the lung bases. Liver: Normal morphology. Normal density. Biliary: Mild biliary ductal prominence likely a reservoir effect in the post cholecystectomy state. Gallbladder surgically absent. Calcification in Morison's pouch suggestive of a dropped gallstone. Th is is unchanged. Pancreas: Normal noncontrast appearance. Spleen: Normal noncontrast appearance. Splenule noted. Adrenal glands: Normal noncontrast appearance. Kidneys and ureters: Normal noncontrast appearance. No nephrolithiasis. No hydronephrosis. Normal ure ters. Bladder: Incompletely evaluated secondary to underdistention. Pelvic organs: Normal noncontrast appearance. Bowel: Diverticulosis of the proximal to mid sigmoid colon with a few scattered additional colonic di verticula elsewhere. Trace pericolonic inflammatory change at the mid sigmoid colon best demonstrated on coronal reformatted images. The appendix is surgically absent. No bowel obstruction. Peritoneal cavity: No free fluid or intraperitoneal gas. Lymph nodes: No gross lymphadenopathy allowing for noncontrast technique. Vasculature: Normal noncontrast appearance. Abdominal wall: Normal. Musculoskeletal: Total right hip arthroplasty. IMPRESSION: 1. Subtle evidence of early acute uncomplicated diverticulitis of the mid sigmoid colon. Electronically signed by: Valeriano Regalado M.D. 10/01/2018 1:35 PM
[2018-10-01] MEDS ORDERED: PIPERACILL/TAZOBAC CONSULT ACTIVE PRN (15:46)
[2018-10-01] MEDS ORDERED: PIPERACILLIN/TAZOBACTAM 4.5 GM/120 ML BAG IV ONE (15:46)
--- NOTE | 2018-10-01 16:40 | Gastrointestinal Consultation ---
Date of Consultation October 01, 2018 Assessment & Plan (1) GI bleed: 58 year old male who presents w/ hematemesis and lower abdominal pain CT ?early acute uncomplicated diverticulitis of the mid sigmoid colon. His vital signs are stable, HGB improved from last admission at 14.5 without BUN zena vation. DDX discussed: pattie-vasquez tear, esophagitis, gastritis etc - IV PPI BID - Trend H&H - Monitor and document GI output - Recommend ABX for diverticulitis (appear to be already ordered) - Clear liquids - If significant drop in H&H or persistent hematemesis consider inpatient EGD - If H&H remains stable would recommend dietary advancement and OP EGD Thank you for allowing us to participate in the care of this patient. Please call with any acute changes, questions or concerns. Please see addendum below with additional recommendation from my supervising physician. Present on Admission?: Yes Supervising Physician Co-Signing Physician Notes I performed a history and physical examination of the patient, including specifically on physical exam - soft, nontender abdomen. I have discussed the patient's management with [place]. Please refer to the nurse practitioner's note for the documented findings and plan of care. 58 male patient presented with small amount hematemesis, had similar presentation in the past and his EGD was normal in 03/2018. His H/H is normal and BUN is normal as well. On exam abdomen is nontender CT scan with possible early sigmoid diverticulitis. Plan: OP EGD unless H/H drops significantly. PPI Recall us as needed. 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 Pt was seen and evaluated, chart reviewed. Notes this AM woke up with lower abdominal pain. Sharp, severe. Constant. Notes around onset of pain he had a bowel movement which was brown coated w/ BRB. He later developed nausea & vomiting w/ report of small amount of BRB. He later threw up, but noted much more bright red blood. Denies any coffee ground emesis. No prior melena. No fever, chills, CP, SOB. NSAIDs: none AC: none CT 10/01: Subtle evidence of early acute uncomplicated diverticulitis of the mid sigmoid colon. EGD 04/03: Normal esophagus. Z-line regular.Non-bleeding erosive gastropathy. Biopsied.Normal stomach.Normal duodenal bulb and second portion of the duodenum. Allergies Allergy/AdvReac Type Severity Reaction Status Date / Time ketorolac Allergy Severe SHORTNESS Verified 10/01/18 12:54 OF BREATH,RASH Home Medications Home Medications Medication Instructions Recorded Confirmed Type atenolol 25 mg PO QAM 03/16/18 10/01/18 History lisinopril 20 mg PO QAM 03/16/18 10/01/18 History oxycodone 5 mg PO Q4H PRN 03/16/18 10/01/18 History pantoprazole 40 mg PO BID 03/16/18 10/01/18 History sucralfate [Carafate] 1 g PO ACHS 03/17/18 10/01/18 History Patient History Social History Preferred Language: Vietnamese Communication Ability: Effective Beliefs That Will Affect Care: None Current Living Situation: Significant Other Feels Safe at Home: Yes Smoking Status: Never smoker Second Hand Exposure: Yes (Girlfriend smokes but goes outside. Previous smoked. Mother did too.) Hx Alcohol Use: No Hx Substance Use: No Review of Systems Constitutional: no fever, no chills and no fatigue Respiratory: no cough, no dyspnea and no wheezing Cardiovascular: no chest pain, no radiating jaw, neck or arm pain and no dyspnea on exertion Gastrointestinal: + abdominal pain, + nausea, + vomiting, + hematemesis and + blood in stools; no belching, no heartburn, no coffee ground emesis, no pain with swallowing, no dysphagia, no cramping, no excessive flatulence, no change in bowel habits, no change in stools, no constipation, no diarrhea/loose stools, no fecal incontinence, no constant urge to pass stools, no melena and no problem reported Physical Exam Constitutional: WD/WN, vitals as above no acute distress and not ill appearing Neck: trachea midline Respiratory: normal respiratory effort, lungs clear to auscultation Cardiovascular: RRR, no murmur, no edema Gastrointestinal (Abdomen): Inspection/Auscultation: abdomen normal to inspection Percussion/Palpation: + abdomen tender (bilateral lower pain w/ palpation) and abdomen soft; no guarding, abdomen not rigid, no abdominal mass and no ascites Skin: no rashes, warm and dry Results & Data Vital Signs (Past 12 Hours) Vital Signs Temp Pulse Pulse Resp BP BP Pulse Ox 10/01/18 16:02 77 20 141/74 H 97 10/01/18 14:25 92 H 16 173/89 H 97 10/01/18 12:40 98 10/01/18 12:30 37.1 C 99 H 16 145/94 H 98 Laboratory Results 10/01/18 10/01/18 10/01/18 Range/Units 15:01 12:52 12:52 WBC (4.8-10.8) K/uL RBC (4.7-6.1) M/uL Hgb (14.0-18.0) g/dL Hct (42-52) % MCV (80-100) fL MCH (25-34) pg MCHC (32-36) g/dL RDW Std Deviation (36.4-46.3) fL RDW Coeff of Kim (11.5-14.5) % Plt Count (130-400) K/uL MPV (7.4-10.4) fL Immature Gran % (Auto) % Neut % (Auto) % Lymph % (Auto) % [place] % (Auto) % Eos % (Auto) % Baso % (Auto) % Immature Gran # (Auto) (0.00-0.02) K/uL Neut # (Auto) (1.4-6.5) K/uL Lymph # (Auto) (1.2-3.4) K/uL [place] # (Auto) (0.11-0.59) K/uL Eos # (Auto) (0-0.5) K/uL Baso # (Auto) (0-0.2) K/uL PT (9.0-12.0) Seconds INR (0.9-1.1) APTT (21.0-31.0) Seconds PTT Ratio Sodium 143 (136-145) mmol/L Potassium 3.6 (3.5-5.1) mmol/L Chloride 113 H (98-107) mmol/L Carbon Dioxide 25 (21-32) mmol/L Anion Gap 5.0 (3-11) BUN 15 (7-18) mg/dl Creatinine 0.92 (0.6-1.4) mg/dl Est Cr Clr Drug Dosing 110.5 ml/min Est GFR ( Amer) 106.6 Est GFR (Non-Af Amer) 92.0 BUN/Creatinine Ratio 16.4 (10-20) Glucose 64 L (70-99) mg/dl Calcium 9.2 (8.5-10.1) mg/dl Total Bilirubin 0.4 (0.2-1) mg/dl AST 12 L (15-37) U/L ALT 30 (12-78) U/L Alkaline Phosphatase 76 (45-117) U/L Total Protein 7.6 (6.4-8.2) gm/dl Albumin 4.4 (3.4-5.0) gm/dl Globulin 3.2 (2.5-4.0) gm/dl Albumin/Globulin Ratio 1.4 (0.9-2) POC Stool Occult Blood Positive A (Negative) Blood Type O Negative Antibody Screen NEGATIVE 10/01/18 10/01/18 Range/Units 12:52 12:52 WBC 5.60 (4.8-10.8) K/uL RBC 5.02 (4.7-6.1) M/uL Hgb 14.5 (14.0-18.0) g/dL Hct 41.6 L (42-52) % MCV 82.9 (80-100) fL MCH 28.9 (25-34) pg MCHC 34.9 (32-36) g/dL RDW Std Deviation 40.0 (36.4-46.3) fL RDW Coeff of Kim 13.4 (11.5-14.5) % Plt Count 209 (130-400) K/uL MPV 9.8 (7.4-10.4) fL Immature Gran % (Auto) 0.2 % Neut % (Auto) 68.5 % Lymph % (Auto) 18.0 % [place] % (Auto) 10.4 % Eos % (Auto) 2.7 % Baso % (Auto) 0.2 % Immature Gran # (Auto) 0.01 (0.00-0.02) K/uL Neut # (Auto) 3.84 (1.4-6.5) K/uL Lymph # (Auto) 1.01 L (1.2-3.4) K/uL [place] # (Auto) 0.58 (0.11-0.59) K/uL Eos # (Auto) 0.15 (0-0.5) K/uL Baso # (Auto) 0.01 (0-0.2) K/uL PT 11.4 (9.0-12.0) Seconds INR 1.1 (0.9-1.1) APTT 24.5 (21.0-31.0) Seconds PTT Ratio 0.9 Sodium (136-145) mmol/L Potassium (3.5-5.1) mmol/L Chloride (98-107) mmol/L Carbon Dioxide (21-32) mmol/L Anion Gap (3-11) BUN (7-18) mg/dl Creatinine (0.6-1.4) mg/dl Est Cr Clr Drug Dosing ml/min Est GFR ( Amer) Est GFR (Non-Af Amer) BUN/Creatinine Ratio (10-20) Glucose (70-99) mg/dl Calcium (8.5-10.1) mg/dl Total Bilirubin (0.2-1) mg/dl AST (15-37) U/L ALT (12-78) U/L Alkaline Phosphatase (45-117) U/L Total Protein (6.4-8.2) gm/dl Albumin (3.4-5.0) gm/dl Globulin (2.5-4.0) gm/dl Albumin/Globulin Ratio (0.9-2) POC Stool Occult Blood (Negative) Blood Type Antibody Screen (1) GI bleed GI bleed type/associated pathology: unspecified gastrointestinal hemorrhage type Qualified Code(s): K92.2 - Gastrointestinal hemorrhage, unspecified
--- NOTE | 2018-10-01 17:43 | History & Physical Report ---
Date of Service October 01, 2018 Assessment & Plan (1) Hematemesis: -Admit to [facility] with telemetry -Patient presenting from home with reports of hematemesis (bright red and dark red blood) this morning -In the ED, patient is hemodynamically stable, hemoglobin stable at 14.5 -FOBT positive however patient also has findings of diverticulitis on CAT scan -History of PUD S/P gastric ulcer clipping in 2018 -EGD 03/2018 showed nonbleeding erosive gastropathy -will place on IV PPI twice daily -Serial H&H -Clear liquids -GI consult, case discussed with HUEY Villatoro (2) Diverticulitis: -CT ABD/pelvis showing early findings of uncomplicated sigmoid diverticulitis -Colonoscopy 2016-showed diverticulosis in the sigmoid and descending colon, internal hemorrhoids -Does not appear septic, no signs of abscess on CT scan -Received IV Zosyn in the ED, will continue with (3) HTN (hypertension): -BP mildly elevated, likely situational -Continue lisinopril and atenolol (4) DVT prophylaxis: -SCDs due to GI bleeding History of Present Illness Chief Complaint: Vomiting blood, abdominal pain Primary Care Provider: NO PCP 58-year-old male who presents the ED with complaints of vomiting blood and abdominal pain. Patient reports that when he woke up this morning, he felt nauseous and subsequently had a lot of retching followed by hematemesis. He reports blood was initially bright red and then became darker red. He also has had associated left-sided abdominal pain with also some discomfort in the epigastric area. He reports pain is worse with a bowel movement. A few days ago patient reports he had some diarrhea however did not note any blood at that time. Today, diarrhea has resolved however patient reports some dark red blood in his stools today. Patient does not take any blood thinners, antiplatelets, or heavy NSAID use. He denies chest pain shortness of breath. No lightheadedness, dizziness, diaphoresis, syncopal events. Reports he otherwise been feeling well recently. No fevers or chills. He denies any urinary symptoms. In the ED, Hgb is stable at 14.5. CT ABD/pelvis is showing subtle evidence of early diverticulitis of the sigmoid colon. FOBT is positive. Patient was given IV Zosyn, IV Zofran, IV morphine, IV famotidine. Allergies Allergy/AdvReac Type Severity Reaction Status Date / Time ketorolac Allergy Severe SHORTNESS Verified 10/01/18 12:54 OF BREATH,RASH Home Medications Home Medications Medication Instructions Recorded Confirmed Type atenolol 25 mg PO QAM 03/16/18 10/01/18 History lisinopril 20 mg PO QAM 03/16/18 10/01/18 History oxycodone 5 mg PO Q4H PRN 03/16/18 10/01/18 History pantoprazole 40 mg PO BID 03/16/18 10/01/18 History sucralfate [Carafate] 1 g PO ACHS 03/17/18 10/01/18 History Past Med/Surg History Medical History Avascular necrosis of bone of right hip (Chronic) PUD (peptic ulcer disease) (Resolved) 2018 - gastric ulcer that required clipping GERD (gastroesophageal reflux disease) (Chronic) HTN (hypertension) (Chronic) Osteoarthritis (Chronic) Surgical History History of total right knee replacement (Chronic) S/P tonsillectomy (Resolved) S/P cholecystectomy (Resolved) S/P appendectomy (Resolved) H/O vasectomy (Resolved) S/P knee replacement (Resolved) Family History Father Coronary heart disease T2DM (type 2 diabetes mellitus) Mother Pancreatic cancer Hypertension Social History Preferred Language: Danish Communication Ability: Effective 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 Previous smoked. Mother did too.) Hx Alcohol Use: No Hx Substance Use: Yes (Roxycodone 5mg q4hr PRN) substance use type: opiates Last Used Substance: Hours (ago) Last Used Substance Other:: Evening of 09/30 Review of Systems Review of Systems: ROS per HPI, all other systems reviewed and negative Physical Exam Physical Exam: Please refer to Dr. Monroe's addendum for physical exam Results & Data Vital Signs (Past 12 Hours) Vital Signs Temp Pulse Pulse Resp BP BP Pulse Ox 10/01/18 16:02 77 20 141/74 H 97 10/01/18 14:25 92 H 16 173/89 H 97 10/01/18 12:40 98 10/01/18 12:30 37.1 C 99 H 16 145/94 H 98 Laboratory Results Short CBC 10/01/18 Range/Units 12:52 WBC 5.60 (4.8-10.8) K/uL Hgb 14.5 (14.0-18.0) g/dL Hct 41.6 L (42-52) % Plt Count 209 (130-400) K/uL BMP 10/01/18 12:52 Sodium 143 Potassium 3.6 Chloride 113 H Carbon Dioxide 25 BUN 15 Creatinine 0.92 Glucose 64 L Calcium 9.2 Liver Function 10/01/18 Range/Units 12:52 Total Bilirubin 0.4 (0.2-1) mg/dl AST 12 L (15-37) U/L ALT 30 (12-78) U/L Alkaline Phosphatase 76 (45-117) U/L Albumin 4.4 (3.4-5.0) gm/dl Diagnostic Findings CT ABD/PELVIS IMPRESSION: 1. Subtle evidence of early acute uncomplicated diverticulitis of the mid sigmoid colon. Code Status & VTE Plan VTE Prophylaxis Plan VTE Prophylaxis will be ordered: Yes Supervising Physician Co-Signing Physician Notes Patient is a 58-year-old male with history of peptic ulcer disease, erosive gastropathy, diverticulosis, hypertension and other problems presents with history of nausea, hematemesis after significant retching, left-sided/epigastric abdominal pain which is constant, radiates to back, worsens with bowel movement, mildly improved with pain meds. Reports transient diarrhea 2 days ago. Also noticed some dark-colored blood in stools today. Denies any NSAIDs, aspirin, blood thinner use. Hemoglobin is stable. CT abdomen suggestive of signs of early diverticulitis. Physical Exam: Vitals signs as noted above General Appearance:Moderately built and nourished, no apparent distress Head: normocephalic, Atraumatic Eyes: normal inspection, EOMI Neck: supple, Trachea midline Respiratory/Chest: Normal breath sounds, CTA Cardiovascular: S1, S2, No murmur Abdomen/GI:Soft, Left sided, epigastric tender, Bowel sounds present Extremities/Musculoskelatal:normal inspection, no edema 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:AAOX3, grossly no focal neurological deficits Skin: normal color, warm Acute GI bleed Hematemesis Acute diverticulitis Agree with IV fluids, IV Zosyn Pain control Monitor H&H, transfuse PRBCs as needed Appreciate GI input Continue PPI Needs outpatient EGD unless recurrence of significant bleeding or drop in hemoglobin No increase BUN, creatinine Avoid aspirin, NSAID use I personally reviewed the record. Patient is interviewed and examined at bedside. Patient's care is coordinated with Joellen Flynn GUS[facility] [employer]PER. Please refer to the documentation above for details of patient's presentation and for discussion of other issues. (1) HTN (hypertension) Hypertension type: unspecified Qualified Code(s): I10 - Essential (primary) hypertension
[2018-10-01] MEDS: PANTOprazole 40 MG in SYRINGE 0 ML IV SCH (17:47)
[2018-10-01] MEDS ORDERED: ACETAMINOPHEN 325 MG TAB PO PRN (18:03)
[2018-10-01] MEDS: SODIUM CHLORIDE 0.9% 1000ML 1,000 ML IV SCH (18:34)
[2018-10-01] MEDS ORDERED: SODIUM CHLORIDE 0.9% 250 ML IV PRN (19:18)
[2018-10-01] MEDS: OXYCODONE HCL IR 5 MG TAB (IMMEDIATE RELEASE) PO PRN (19:59)
[2018-10-01] MEDS: PIPERACILLIN/TAZOBACTAM 4.5 GM in DEXTROSE 5% 100 ML IV SCH (20:00)
[2018-10-01 20:02] LABS: Hematocrit (blood only) 37.9 % (42-52); Hemoglobin 13.2 g/dL (14.0-18.0)
--- NOTE | 2018-10-01 20:50 | Emergency Department Note ---
Entered by Renee Velasquez acting as a scribe for ED Provider Note CHIEF COMPLAINT: Vomiting and hematochezia HISTORY OF PRESENT ILLNESS: The patient is a year old 58 year old male who presents to the Emergency Room with complaints of an episode of vomiting and hematochezia that began 2 hours ago. He reports that he is experiencing left abdominal pain and lower back pain. The patient states that he woke up at 10am and noticed the hematochezia. He states that he started to feel nauseated and then began vomiting. The patient states that he has experienced these symptoms before when he had stomach ulcers that were clipped by Dr. Jarrett. The patient states that his doctors appointments are usually at [facility] [place]. Pt denies LOC, headache, fevers, chills, diaphoresis, visual changes, neck pain, chest pain, breathing difficulties, melena, urinary symptoms, numbness, weakness, lymphadenopathy, rash, or other complaints. REVIEW OF SYSTEMS: See HPI for pertinent positives and negatives. A total of ten systems were reviewed and were otherwise negative. PMHx/PSHx: The patient has a history of stomach ulcers. SOCIAL HISTORY: Patient lives at home. PHYSICAL EXAM: GENERAL: Awake, alert, uncomfortable-appearing, in no distress HENT: Normocephalic, atraumatic. Oropharynx unremarkable. EYES: PERRL. Normal conjunctiva. Sclera non-icteric. NECK: Inspection normal. Non-tender. Supple. No nuchal rigidity. FROM. No masses. RESPIRATORY: Clear to auscultation. No wheezes. No rales. Normal respiratory effort. CARDIAC: Normal rate. Normal rhythm. No murmurs. No rubs. Extremities warm and well perfused. Pulses equal. No JVD. GI: Soft, non-distended. Epigastric tenderness. No rebound or guarding. No masses. RECTAL: Brown stool trace heme positive. MUSCULOSKELETAL: Atraumatic. Chest examination reveals no tenderness. The back is symmetrical on inspection without obvious abnormality. There is no CVA tenderness to palpation. No joint edema. LOWER EXTREMITIES: Calves are equal size bilaterally and non-tender. No edema. No discoloration. NEURO: Normal sensorium. No sensory or motor deficits noted. SKIN: No rash or jaundice noted. EMERGENCY DEPARTMENT COURSE: 1243: Past medical records reviewed. The patient was evaluated in room B10, and a complete history and physical examination were performed. 1553: I reevaluated the patient at this time and discussed further treatment plans with them. The patient verbally agreed and understood. 1613: I discussed the patients case with Jenae Wright PA-C. She informed me that [facility] will admit this patient and evaluate him for further management. MEDICAL DECISION MAKING: B10 Prior records/ancillary studies reviewed. Last endoscopy showed a small ulceration but no active bleeding. Triage Nursing notes reviewed and agree them. The patient's history was concerning for possible gastrointestinal bleeding. Differential diagnosis: Etiologies such as peptic ulcer disease, diverticulosis, AVM, coagulopathy, colitis, inflammatory bowel disease, malignancy,Natalie-Man tear, esophagitis, variceal bleed, gastritis, epistaxis, fissure, hemorrhoids, as well as others were entertained. Physical exam: As above. Patient had brown stool but Hemoccult positive. ER treatment provided: IV normal saline hydration IV Zofran Pepcid IV morphine On reassessment the patient felt better. IV Zofran IV Zosyn Diagnostics interpreted by me: ECG: Normal sinus rhythm The labs revealed an unremarkable CBC and chemistry panel. Imaging studies: CT scan of the abdomen pelvis was performed due to the left-sided abdominal tenderness CT imaging of the abdomen pelvis was concerning for early diverticulitis. Consultation: A consultation was placed with the hospitalist. The case was discussed and diagnostics were reviewed. The patient was evaluated in the ER for further treatment. IMPRESSION: GI bleed, left-sided abdominal pain, diverticulitis PLAN: The patient was admitted for further management. The scribe's documentation has been prepared under my direction and personally reviewed by me in its entirety. I confirm that the note above accurately reflects all work, treatment, procedures, and medical decision making performed by me. Impression & Plan GI bleed, Diverticulitis, Left sided abdominal pain Past Med/Surg History Medical History Avascular necrosis of bone of right hip (Chronic) PUD (peptic ulcer disease) (Resolved) 2018 - gastric ulcer that required clipping GERD (gastroesophageal reflux disease) (Chronic) HTN (hypertension) (Chronic) Osteoarthritis (Chronic) Surgical History History of total right knee replacement (Chronic) S/P tonsillectomy (Resolved) S/P cholecystectomy (Resolved) S/P appendectomy (Resolved) H/O vasectomy (Resolved) S/P knee replacement (Resolved) Family History Father Coronary heart disease T2DM (type 2 diabetes mellitus) Mother Pancreatic cancer Hypertension Social History Preferred Language: Divehi Communication Ability: Effective Watchmaking Teacher Required: No Beliefs That Will Affect Care: None Current Living Situation: Other Current Living Situation Comment: Girlfriend Feels Safe at Home: Yes Smoking Status: Never smoker Second Hand Exposure: Yes (Girlfriend smokes but goes outside. Previous smoked. Mother did too.) Hx Alcohol Use: No Hx Substance Use: Yes (Roxycodone 5mg q4hr PRN) substance use type: opiates Last Used Substance: Hours (ago) Last Used Substance Other:: Evening of 09/30 Results & Data Vital Signs Vital Signs - 24 hr 10/01/18 12:30 10/01/18 12:40 10/01/18 14:25 Temperature 37.1 C Temperature Source Oral Sepsis Recent Fever Within 48 Hours No Sepsis New/Unexplained Change in Mental Status No Sepsis Action Taken by Nursing No Action Required Pulse Rate 99 H Pulse Rate [Apical] 92 H Respiratory Rate 16 16 Respiratory Effort / Characteristics Respiratory Depth Respiratory Pattern Blood Pressure 145/94 H Blood Pressure [Left Arm] 173/89 H Blood Pressure Mean 111 Blood Pressure Mean [Left Arm] 117 Pulse Oximetry 98 98 97 Oxygen Delivery Method Room Air Room Air Room Air 10/01/18 16:02 Temperature Temperature Source Sepsis Recent Fever Within 48 Hours Sepsis New/Unexplained Change in Mental Status Sepsis Action Taken by Nursing Pulse Rate Pulse Rate [Apical] 77 Respiratory Rate 20 Respiratory Effort / Characteristics Non-Labored Respiratory Depth Normal Respiratory Pattern Regular Blood Pressure Blood Pressure [Left Arm] 141/74 H Blood Pressure Mean Blood Pressure Mean [Left Arm] 96 Pulse Oximetry 97 Oxygen Delivery Method Room Air Home Medications Current Medication List: was personally reviewed by me Laboratory Data Attestation: I reviewed the patient's lab results. Result diagrams: 10/01/18 19:50 10/01/18 12:52 Lab Results 10/01/18 10/01/18 10/01/18 Range/Units 12:52 12:52 12:52 WBC 5.60 (4.8-10.8) K/uL RBC 5.02 (4.7-6.1) M/uL Hgb 14.5 (14.0-18.0) g/dL Hct 41.6 L (42-52) % MCV 82.9 (80-100) fL MCH 28.9 (25-34) pg MCHC 34.9 (32-36) g/dL RDW Std Deviation 40.0 (36.4-46.3) fL RDW Coeff of Kim 13.4 (11.5-14.5) % Plt Count 209 (130-400) K/uL MPV 9.8 (7.4-10.4) fL Immature Gran % (Auto) 0.2 % Neut % (Auto) 68.5 % Lymph % (Auto) 18.0 % Stafford % (Auto) 10.4 % Eos % (Auto) 2.7 % Baso % (Auto) 0.2 % Immature Gran # (Auto) 0.01 (0.00-0.02) K/uL Neut # (Auto) 3.84 (1.4-6.5) K/uL Lymph # (Auto) 1.01 L (1.2-3.4) K/uL Stafford # (Auto) 0.58 (0.11-0.59) K/uL Eos # (Auto) 0.15 (0-0.5) K/uL Baso # (Auto) 0.01 (0-0.2) K/uL PT 11.4 (9.0-12.0) Seconds INR 1.1 (0.9-1.1) APTT 24.5 (21.0-31.0) Seconds PTT Ratio 0.9 Sodium 143 (136-145) mmol/L Potassium 3.6 (3.5-5.1) mmol/L Chloride 113 H (98-107) mmol/L Carbon Dioxide 25 (21-32) mmol/L Anion Gap 5.0 (3-11) BUN 15 (7-18) mg/dl Creatinine 0.92 (0.6-1.4) mg/dl Est Cr Clr Drug Dosing 110.5 ml/min Est GFR ( Amer) 106.6 Est GFR (Non-Af Amer) 92.0 BUN/Creatinine Ratio 16.4 (10-20) Glucose 64 L (70-99) mg/dl Calcium 9.2 (8.5-10.1) mg/dl Total Bilirubin 0.4 (0.2-1) mg/dl AST 12 L (15-37) U/L ALT 30 (12-78) U/L Alkaline Phosphatase 76 (45-117) U/L Total Protein 7.6 (6.4-8.2) gm/dl Albumin 4.4 (3.4-5.0) gm/dl Globulin 3.2 (2.5-4.0) gm/dl Albumin/Globulin Ratio 1.4 (0.9-2) POC Stool Occult Blood (Negative) Blood Type Antibody Screen Crossmatch 10/01/18 10/01/18 Range/Units 12:52 15:01 WBC (4.8-10.8) K/uL RBC (4.7-6.1) M/uL Hgb (14.0-18.0) g/dL Hct (42-52) % MCV (80-100) fL MCH (25-34) pg MCHC (32-36) g/dL RDW Std Deviation (36.4-46.3) fL RDW Coeff of Kim (11.5-14.5) % Plt Count (130-400) K/uL MPV (7.4-10.4) fL Immature Gran % (Auto) % Neut % (Auto) % Lymph % (Auto) % Stafford % (Auto) % Eos % (Auto) % Baso % (Auto) % Immature Gran # (Auto) (0.00-0.02) K/uL Neut # (Auto) (1.4-6.5) K/uL Lymph # (Auto) (1.2-3.4) K/uL Stafford # (Auto) (0.11-0.59) K/uL Eos # (Auto) (0-0.5) K/uL Baso # (Auto) (0-0.2) K/uL PT (9.0-12.0) Seconds INR (0.9-1.1) APTT (21.0-31.0) Seconds PTT Ratio Sodium (136-145) mmol/L Potassium (3.5-5.1) mmol/L Chloride (98-107) mmol/L Carbon Dioxide (21-32) mmol/L Anion Gap (3-11) BUN (7-18) mg/dl Creatinine (0.6-1.4) mg/dl Est Cr Clr Drug Dosing ml/min Est GFR ( Amer) Est GFR (Non-Af Amer) BUN/Creatinine Ratio (10-20) Glucose (70-99) mg/dl Calcium (8.5-10.1) mg/dl Total Bilirubin (0.2-1) mg/dl AST (15-37) U/L ALT (12-78) U/L Alkaline Phosphatase (45-117) U/L Total Protein (6.4-8.2) gm/dl Albumin (3.4-5.0) gm/dl Globulin (2.5-4.0) gm/dl Albumin/Globulin Ratio (0.9-2) POC Stool Occult Blood Positive A (Negative) Blood Type O Negative Antibody Screen NEGATIVE Crossmatch See Detail Administered Medications Pantoprazole Sodium 40 mg/ (Syringe) 10 mls @ 5 mls/min IV BID@0900,2100 VELIA Stop: 10/31/18 17:29 Last Admin: 10/01/18 17:47 Dose: 5 mls/min Documented by: [id number] Sodium Chloride (Nss 1000ml) 1,000 mls @ 100 mls/hr IV .Q10H VELIA Stop: 10/31/18 18:59 Last Admin: 10/01/18 18:34 Dose: 100 mls/hr Documented by: [id number] Piperacillin Sod/Tazobactam (Sod 4.5 gm/ Dextrose) 120 mls @ 30 mls/hr IV Q8H VELIA; Protocol Stop: 10/11/18 19:59 Last Admin: 10/01/18 20:00 Dose: 30 mls/hr Documented by: [id number] Oxycodone HCl (Roxicodone Immediate Rel) 5 mg PO Q4H PRN PRN Reason: Pain Stop: 10/15/18 18:02 Last Admin: 10/01/18 19:59 Dose: 5 mg Documented by: [id number] Discontinued Medications Famotidine (Pepcid 20mg Iv Push) 20 mg IV ONE STA Stop: 10/01/18 12:46 Last Admin: 10/01/18 12:58 Dose: 20 mg Documented by: [id number] Sodium Chloride (Nss 1000ml) 1,000 mls @ 100 mls/hr IV .Q10H VELIA Stop: 10/01/18 22:44 Last Infusion: 10/01/18 18:04 Dose: 0 mls/hr Documented by: [id number] Admin: 10/01/18 12:58 Dose: 100 mls/hr Documented by: [id number] Piperacillin Sod/Tazobactam Sod (Zosyn) 4.5 gm in 120 mls @ 240 mls/hr IV NOW ONE Stop: 10/01/18 16:15 Last Infusion: 10/01/18 17:48 Dose: 0 mls/hr Documented by: [id number] Admin: 10/01/18 16:02 Dose: 240 mls/hr Documented by: [id number] Morphine Sulfate (Morphine Sulfate) 4 mg IV NOW STA Stop: 10/01/18 13:15 Last Admin: 10/01/18 13:34 Dose: 4 mg Documented by: [id number] Morphine Sulfate (Morphine Sulfate) 4 mg IV NOW STA Stop: 10/01/18 15:47 Last Admin: 10/01/18 16:02 Dose: 4 mg Documented by: [id number] Ondansetron HCl (Zofran) 4 mg IV NOW STA Stop: 10/01/18 12:46 Last Admin: 10/01/18 12:58 Dose: 4 mg Documented by: [id number] Imaging Data Radiologist's Impression: Radiology results as stated below per my review and the radiologist's interpretation: CT abd pelvis wo con CLINICAL HISTORY: 58 years-old Male presenting with left abd pain, vomiting.. TECHNIQUE: Multidetector CT of the abdomen and pelvis was performed without the use of intravenous contrast. IV contrast: None. One or more dose lowering techniques were used consistent with the principles of ALARA (as low as reasonably achievable), including automatic exposure control, mA or kV adjustment to individual patient size, and/or use of iterative reconstruction. COMPARISON: 03/16/2018. CT DOSE (mGy.cm): The estimated cumulative dose is 1348.54 mGy.cm. FINDINGS: Quality Control Projectionist topogram: Orthopedic hardware. Lung bases: Normal heart size. Coronary artery calcification. No pericardial or pleural effusion. No focal infiltrate or nodule at the lung bases. Liver: Normal morphology. Normal density. Biliary: Mild biliary ductal prominence likely a reservoir effect in the post cholecystectomy state. Gallbladder surgically absent. Calcification in Morison's pouch suggestive of a dropped gallstone. This is unchanged. Pancreas: Normal noncontrast appearance. Spleen: Normal noncontrast appearance. Splenule noted. Adrenal glands: Normal noncontrast appearance. Kidneys and ureters: Normal noncontrast appearance. No nephrolithiasis. No hydronephrosis. Normal ureters. Bladder: Incompletely evaluated secondary to underdistention. Pelvic organs: Normal noncontrast appearance. Bowel: Diverticulosis of the proximal to mid sigmoid colon with a few scattered additional colonic diverticula elsewhere. Trace pericolonic inflammatory change at the mid sigmoid colon best demonstrated on coronal reformatted images. The appendix is surgically absent. No bowel obstruction. Peritoneal cavity: No free fluid or intraperitoneal gas. Lymph nodes: No gross lymphadenopathy allowing for noncontrast technique. Vasculature: Normal noncontrast appearance. Abdominal wall: Normal. Musculoskeletal: Total right hip arthroplasty. IMPRESSION: 1. Subtle evidence of early acute uncomplicated diverticulitis of the mid sigmoid colon. Electronically signed by: Valeriano Regalado M.D. 10/01/2018 1:35 PM ECG Data Attestation: I personally reviewed and interpreted this ECG as follows: Indication: vomiting Rate (beats per minute): 103 Rhythm: sinus tachycardia Findings: + left axis deviation; no PAC, no PVC, no ST depression and no ST elevation Blood Pressure Blood Pressure Findings: Normal blood pressure Blood Pressure Disposition: further management by hospitalist Discharge Plan Visit Data *Final* Discharge Date/Time: 10/01/18 17:50 Chief Complaint: Vomiting Stated Complaint: VOMITING BLOOD, BLOODY STOOL AND BACK PAIN ED Provider: René Barbosa Discharge Problem: GI bleed, Diverticulitis, Left sided abdominal pain Patient Disposition: Admitted As Inpatient Discharge Instructions Interventions: ED Discharge Assessment Last Done: 10/01/18 17:50 Discharge Problem: GI bleed Qualifiers: GI bleed type/associated pathology: unspecified gastrointestinal hemorrhage type Qualified Code(s): K92.2 - Gastrointestinal hemorrhage, unspecified The scribe's documentation has been prepared under my direction and personally reviewed by me in its entirety. I confirm that the note above accurately reflects all work, treatment, procedures, and medical decision making performed by me.
[2018-10-01] MEDS: MoRPHine SULFATE 4 MG/ML 1 ML CARP\\VIAL IV PRN (22:13)
[2018-10-01] MEDS: ONDANSETRON INJ 2 MG/ML 2 ML VIAL IV PRN (22:14)
[2018-10-02] MEDS: SODIUM CHLORIDE 0.9% 1000ML 1,000 ML IV SCH ×4 (02:12→22:14)
[2018-10-02] MEDS: MoRPHine SULFATE 4 MG/ML 1 ML CARP\\VIAL IV PRN ×5 (02:13→22:01)
[2018-10-02] MEDS: PIPERACILLIN/TAZOBACTAM 4.5 GM in DEXTROSE 5% 100 ML IV SCH ×3 (04:10→20:49)
[2018-10-02 04:38] LABS: Hematocrit (blood only) 36.4 % (42-52); Hemoglobin 12.4 g/dL (14.0-18.0); Mean Corpuscular Hgb Conc 34.1 g/dL (32-36); Mean Corpuscular Volume 82.7 fL (80-100); Platelet Count 161 K/uL (130-400); RDW Coefficient of Variation 13.4 % (11.5-14.5); RDW Standard Deviation 40.8 fL (36.4-46.3); White Blood Count 6.82 K/uL (4.8-10.8)
[2018-10-02 04:59] LABS: BUN Creatinine Ratio 11.1 (10-20); Est GFR (African American) 88.8; Est GFR (Non-African American) 76.7; Potassium 3.9 mmol/L (3.5-5.1)
[2018-10-02] MEDS: ONDANSETRON INJ 2 MG/ML 2 ML VIAL IV PRN ×2 (06:18→15:41)
[2018-10-02] MEDS: ATENOLOL 25 MG TABLET PO SCH (08:34)
[2018-10-02] MEDS: LISINOPRIL 20 MG TAB PO SCH (08:34)
[2018-10-02] MEDS: PANTOprazole 40 MG in SYRINGE 0 ML IV SCH ×2 (08:34→20:50)
--- NOTE | 2018-10-02 09:11 | Gastroenterology Progress Note ---
Date of Service October 02, 2018 Assessment & Plan (1) Diverticulitis: Patient with it appears to be sigmoid diverticulitis resulting in abdominal pain and recurrent nausea and vomiting. There is been a minimal drop in his hematocrit and I would suggest we hold on endoscopic evaluation for the present time as he had bilious emesis this morning. The patient should be continued on intravenous antibiotics in addition to IV hydration. I would also continue the IV Protonix twice daily as you are doing. We will reevaluate the patient tomorrow morning and hopefully he will start to improve with continued antibiotic coverage. (2) Left sided abdominal pain: Subjective Patient notes that he has persistent left-sided abdominal discomfort. He was seen by my partner yesterday thought to have evidence of sigmoid diverticulitis with a suspected Natalie-Man tear. The patient did have an additional episode of emesis this morning which was described to me as bilious perhaps with some coffee grounds within it. The patient denies having hematochezia or melena. Review of Systems Constitutional: no sweats and no malaise Eyes: no diplopia Respiratory: no change in sputum and no hemoptysis Cardiovascular: no chest pain with activity Gastrointestinal: + abdominal pain, + nausea and + cramping Physical Exam Eyes: PERRL, conjunctivae normal, anicteric sclerae Neck: trachea midline, no thyromegaly Respiratory: normal respiratory effort, lungs clear to auscultation Cardiovascular: Rate/Rhythm: regular rate; not tachycardic Heart Sounds: no murmur Gastrointestinal (Abdomen): Percussion/Palpation: + abdomen tender and abdomen soft Tender to palpation in the left lower quadrant Results & Data Vital Signs (Past 12 Hours) Vital Signs Temp Pulse Resp BP Pulse Ox 10/02/18 07:48 36.7 C 63 18 111/65 97 10/01/18 23:00 36.4 C 78 18 109/62 95 Laboratory Results Laboratory Results - last 24 hr 10/01/18 10/01/18 10/01/18 12:52 12:52 12:52 WBC 5.60 RBC 5.02 Hgb 14.5 Hct 41.6 L MCV 82.9 MCH 28.9 MCHC 34.9 RDW Std Deviation 40.0 RDW Coeff of Kim 13.4 Plt Count 209 MPV 9.8 Immature Gran % (Auto) 0.2 Neut % (Auto) 68.5 Lymph % (Auto) 18.0 Gibson % (Auto) 10.4 Eos % (Auto) 2.7 Baso % (Auto) 0.2 Immature Gran # (Auto) 0.01 Neut # (Auto) 3.84 Lymph # (Auto) 1.01 L Gibson # (Auto) 0.58 Eos # (Auto) 0.15 Baso # (Auto) 0.01 PT 11.4 INR 1.1 APTT 24.5 PTT Ratio 0.9 Sodium 143 Potassium 3.6 Chloride 113 H Carbon Dioxide 25 Anion Gap 5.0 BUN 15 Creatinine 0.92 Est Cr Clr Drug Dosing 110.5 Est GFR ( Amer) 106.6 Est GFR (Non-Af Amer) 92.0 BUN/Creatinine Ratio 16.4 Glucose 64 L Calcium 9.2 Total Bilirubin 0.4 AST 12 L ALT 30 Alkaline Phosphatase 76 Total Protein 7.6 Albumin 4.4 Globulin 3.2 Albumin/Globulin Ratio 1.4 POC Stool Occult Blood Blood Type Antibody Screen Crossmatch 10/01/18 10/01/18 10/01/18 12:52 15:01 19:50 WBC RBC Hgb 13.2 L Hct 37.9 L MCV MCH MCHC RDW Std Deviation RDW Coeff of Kim Plt Count MPV Immature Gran % (Auto) Neut % (Auto) Lymph % (Auto) Gibson % (Auto) Eos % (Auto) Baso % (Auto) Immature Gran # (Auto) Neut # (Auto) Lymph # (Auto) Gibson # (Auto) Eos # (Auto) Baso # (Auto) PT INR APTT PTT Ratio Sodium Potassium Chloride Carbon Dioxide Anion Gap BUN Creatinine Est Cr Clr Drug Dosing Est GFR ( Amer) Est GFR (Non-Af Amer) BUN/Creatinine Ratio Glucose Calcium Total Bilirubin AST ALT Alkaline Phosphatase Total Protein Albumin Globulin Albumin/Globulin Ratio POC Stool Occult Blood Positive A Blood Type O Negative Antibody Screen NEGATIVE Crossmatch See Detail 10/02/18 10/02/18 04:15 04:15 WBC 6.82 RBC 4.40 L Hgb 12.4 L Hct 36.4 L MCV 82.7 MCH 28.2 MCHC 34.1 RDW Std Deviation 40.8 RDW Coeff of Kim 13.4 Plt Count 161 MPV 9.0 Immature Gran % (Auto) Neut % (Auto) Lymph % (Auto) Gibson % (Auto) Eos % (Auto) Baso % (Auto) Immature Gran # (Auto) Neut # (Auto) Lymph # (Auto) Gibson # (Auto) Eos # (Auto) Baso # (Auto) PT INR APTT PTT Ratio Sodium 142 Potassium 3.9 Chloride 110 H Carbon Dioxide 28 Anion Gap 4.0 BUN 12 Creatinine 1.07 Est Cr Clr Drug Dosing 95.0 Est GFR ( Amer) 88.8 Est GFR (Non-Af Amer) 76.7 BUN/Creatinine Ratio 11.1 Glucose 87 Calcium 8.0 L Total Bilirubin AST ALT Alkaline Phosphatase Total Protein Albumin Globulin Albumin/Globulin Ratio POC Stool Occult Blood Blood Type Antibody Screen Crossmatch Diagnostic Findings CT abd pelvis wo con CLINICAL HISTORY: 58 years-old Male presenting with left abd pain, vomiting.. TECHNIQUE: Multidetector CT of the abdomen and pelvis was performed without the use of intravenous contrast. IV contrast: None. One or more dose lowering techniques were used consistent with the principles of ALARA (as low as reasonably achievable), including automatic exposure control, mA or kV adjustment to individual patient size, and/or use of iterative reconstruction. COMPARISON: 03/16/2018. CT DOSE (mGy.cm): The estimated cumulative dose is 1348.54 mGy.cm. FINDINGS: Homeland Security Program Specialist topogram: Orthopedic hardware. Lung bases: Normal heart size. Coronary artery calcification. No pericardial or pleural effusion. No focal infiltrate or nodule at the lung bases. Liver: Normal morphology. Normal density. Biliary: Mild biliary ductal prominence likely a reservoir effect in the post cholecystectomy state. Gallbladder surgically absent. Calcification in Morison's pouch suggestive of a dropped gallstone. This is unchanged. Pancreas: Normal noncontrast appearance. Spleen: Normal noncontrast appearance. Splenule noted. Adrenal glands: Normal noncontrast appearance. Kidneys and ureters: Normal noncontrast appearance. No nephrolithiasis. No hydronephrosis. Normal ureters. Bladder: Incompletely evaluated secondary to underdistention. Pelvic organs: Normal noncontrast appearance. Bowel: Diverticulosis of the proximal to mid sigmoid colon with a few scattered additional colonic diverticula elsewhere. Trace pericolonic inflammatory change at the mid sigmoid colon best demonstrated on coronal reformatted images. The appendix is surgically absent. No bowel obstruction. Peritoneal cavity: No free fluid or intraperitoneal gas. Lymph nodes: No gross lymphadenopathy allowing for noncontrast technique. Vasculature: Normal noncontrast appearance. Abdominal wall: Normal. Musculoskeletal: Total right hip arthroplasty. IMPRESSION: 1. Subtle evidence of early acute uncomplicated diverticulitis of the mid sigmoid colon.
[2018-10-02] MEDS: OXYCODONE HCL IR 5 MG TAB (IMMEDIATE RELEASE) PO PRN ×3 (10:27→20:55)
[2018-10-02 12:00] LABS: Hematocrit (blood only) 38.2 % (42-52); Hemoglobin 12.9 g/dL (14.0-18.0)
--- NOTE | 2018-10-02 15:33 | Hospitalist Progress Note ---
Date of Service October 02, 2018 Assessment & Plan (1) Hematemesis: Likely due to Natalie-Man tear H/O peptic ulcer disease S/P gastric ulcer clipping in 2018, erosive gastropathy Continue IV Protonix Appreciate GI input No plan for any procedures currently Advance diet as tolerated Monitor H&H Transfuse PRBCs as needed (2) Diverticulitis: CT ABD/pelvis showing early findings of uncomplicated sigmoid diverticulitis Colonoscopy 2017-showed diverticulosis in the sigmoid and descending colon, internal hemorrhoids No signs of sepsis Continue IV Zosyn Day #2 (3) HTN (hypertension): Stable Continue lisinopril and atenolol (4) DVT prophylaxis: SCDs Re: GI bleeding CODE STATUS Full code Disposition Expect to discharge home in stable Subjective Patient is seen and examined at bedside Patient reports having coffee-ground emesis this morning Continues to have left-sided abdominal pain Tolerating diet Hemoglobin stable Denies any melena, hematochezia, chest pain, shortness of breath Review of Systems Review of Systems: All systems reviewed & are unremarkable except as noted in HPI & below Physical Exam Physical Exam: Physical Exam: Vitals signs as noted above General Appearance:Moderately built and nourished, no apparent distress Head: normocephalic, Atraumatic Eyes: normal inspection, EOMI Neck: supple, Trachea midline Respiratory/Chest: Normal breath sounds, CTA Cardiovascular: S1, S2, No murmur Abdomen/GI:Soft, Left sided, epigastric tender, Bowel sounds present Extremities/Musculoskelatal:normal inspection, no edema 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:AAOX3, grossly no focal neurological deficits Skin: normal color, warm Results & Data Vital Signs (Past 12 Hours) Vital Signs Temp Pulse Resp BP Pulse Ox 10/02/18 15:08 36.6 C 61 20 114/69 99 10/02/18 07:48 36.7 C 63 18 111/65 97 Laboratory Results Short CBC 10/01/18 10/02/18 10/02/18 Range/Units 19:50 04:15 11:38 WBC 6.82 (4.8-10.8) K/uL Hgb 13.2 L 12.4 L 12.9 L (14.0-18.0) g/dL Hct 37.9 L 36.4 L 38.2 L (42-52) % Plt Count 161 (130-400) K/uL BMP 07/20/19 04:15 Sodium 142 Potassium 3.9 Chloride 110 H Carbon Dioxide 28 BUN 12 Creatinine 1.07 Glucose 87 Calcium 8.0 L (1) HTN (hypertension) Hypertension type: unspecified Qualified Code(s): I10 - Essential (primary) hypertension
[2018-10-03] MEDS: OXYCODONE HCL IR 5 MG TAB (IMMEDIATE RELEASE) PO PRN ×3 (01:04→09:14)
[2018-10-03] MEDS: MoRPHine SULFATE 4 MG/ML 1 ML CARP\\VIAL IV PRN ×2 (02:05→06:03)
[2018-10-03] MEDS: PIPERACILLIN/TAZOBACTAM 4.5 GM in DEXTROSE 5% 100 ML IV SCH ×3 (04:44→20:13)
[2018-10-03 06:10] LABS: Hematocrit (blood only) 35.3 % (42-52); Hemoglobin 11.8 g/dL (14.0-18.0)
[2018-10-03 06:43] LABS: Est GFR (African American) 102.6; Est GFR (Non-African American) 88.5
[2018-10-03] MEDS: PANTOprazole 40 MG in SYRINGE 0 ML IV SCH ×2 (07:55→20:14)
[2018-10-03] MEDS: ATENOLOL 25 MG TABLET PO SCH (07:55)
[2018-10-03] MEDS: SODIUM CHLORIDE 0.9% 1000ML 1,000 ML IV SCH ×2 (07:55→18:15)
[2018-10-03] MEDS: LISINOPRIL 20 MG TAB PO SCH (07:55)
[2018-10-03] MEDS ORDERED: MoRPHine SULFATE 2 MG/ML CARP IV PRN (09:03)
--- NOTE | 2018-10-03 09:27 | Gastroenterology Progress Note ---
Date of Service October 03, 2018 Assessment & Plan (1) Diverticulitis: Patient admitted with imaging evidence consistent with sigmoid diverticulitis. It appears that he is starting to respond to intravenous antibiotics. I would recommend a daily CBC with a white blood cell count as this might be an important parameter to follow. I would suggest a repeat CT scan on Thursday if the patient's pain is not continuing to improve. We will be looking for evidence of a fausto-colonic abscess. Subjective The patient notes that his abdominal pain does seem somewhat better this morning. He no longer has the emesis but does continue to have some problems with nausea. Review of Systems Constitutional: no sweats and no malaise Eyes: no diplopia Respiratory: no change in sputum and no hemoptysis Cardiovascular: no chest pain and no chest pain with activity Gastrointestinal: + abdominal pain, + bloating, + nausea and + cramping; no hematemesis Physical Exam Constitutional: WD/WN, vitals as above Respiratory: normal respiratory effort, lungs clear to auscultation Cardiovascular: Rate/Rhythm: regular rate Gastrointestinal (Abdomen): Percussion/Palpation: + abdomen tender and abdomen soft Mild tenderness in the left lower quadrant Results & Data Vital Signs (Past 12 Hours) Vital Signs Temp Pulse Resp BP Pulse Ox 10/03/18 07:25 36.8 C 63 20 85/53 L 97 10/02/18 23:41 36.8 C 65 20 124/72 95 Laboratory Results Laboratory Results - last 24 hr 10/02/18 10/03/18 10/03/18 11:38 05:54 05:54 Hgb 12.9 L 11.8 L Hct 38.2 L 35.3 L Creatinine 0.95 Est Cr Clr Drug Dosing 107.0 Est GFR ( Amer) 102.6 Est GFR (Non-Af Amer) 88.5
[2018-10-03] MEDS ORDERED: OXYCODONE HCL IR 5 MG TAB (IMMEDIATE RELEASE) PO PRN (11:37)
[2018-10-03] MEDS ORDERED: ACETAMINOPHEN 1,000 MG/100 ML VIAL IV PRN (11:37)
[2018-10-03] MEDS: OXYCODONE HCL 10 MG TABCR (OXYCONTIN) PO SCH ×2 (12:03→20:13)
[2018-10-03] MEDS: LACTOBACILLUS ACIDOPHILUS (FLORANEX) TAB PO SCH ×3 (13:39→20:13)
--- NOTE | 2018-10-03 18:21 | Hospitalist Progress Note ---
Date of Service October 03, 2018 Assessment & Plan (1) Hematemesis: Likely due to Natalie-Man tear H/O peptic ulcer disease S/P gastric ulcer clipping in 2018, erosive gastropathy Continue IV Protonix Appreciate GI input No plan for any procedures currently Tolerating diet Monitor H&H Transfuse PRBCs as needed Mild drop in hemoglobin likely dilutional secondary to IV fluids Plan to repeat CT abdomen to look for abscess if continues to have abdominal pain (2) Diverticulitis: CT ABD/pelvis showing early findings of uncomplicated sigmoid diverticulitis Colonoscopy 2017-showed diverticulosis in the sigmoid and descending colon, internal hemorrhoids No signs of sepsis Continue IV Zosyn Day #3 Pain control (3) HTN (hypertension): Stable Continue lisinopril and atenolol (4) DVT prophylaxis: SCDs Re: GI bleeding Encouraged to ambulate CODE STATUS Full code Disposition Expect to discharge home in stable Subjective Patient is seen and examined at bedside No hematemesis, blood in stools today Tolerating diet Abdominal pain about the same as yesterday Drop in hemoglobin likely dilutional secondary to IV fluids Denies any chest pain, shortness of breath, nausea and vomiting Review of Systems Review of Systems: All systems reviewed & are unremarkable except as noted in HPI & below Physical Exam Physical Exam: Physical Exam: Vitals signs as noted above General Appearance:Moderately built and nourished, no apparent distress Head: normocephalic, Atraumatic Eyes: normal inspection, EOMI Neck: supple, Trachea midline Respiratory/Chest: Normal breath sounds, CTA Cardiovascular: S1, S2, No murmur Abdomen/GI:Soft, Mild Left sided, epigastric tender, Bowel sounds present Extremities/Musculoskelatal:normal inspection, no edema 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:AAOX3, grossly no focal neurological deficits Skin: normal color, warm Results & Data Vital Signs (Past 12 Hours) Vital Signs Temp Pulse Resp BP Pulse Ox 10/03/18 14:50 36.5 C 72 20 134/80 99 10/03/18 07:25 36.8 C 63 20 85/53 L 97 Laboratory Results Short CBC 10/03/18 Range/Units 05:54 Hgb 11.8 L (14.0-18.0) g/dL Hct 35.3 L (42-52) % BMP 10/03/18 05:54 Creatinine 0.95 (1) HTN (hypertension) Hypertension type: unspecified Qualified Code(s): I10 - Essential (primary) hypertension
[2018-10-03 21:01] LABS: Hematocrit (blood only) 35.6 % (42-52); Hemoglobin 12.3 g/dL (14.0-18.0)
[2018-10-04] MEDS: PIPERACILLIN/TAZOBACTAM 4.5 GM in DEXTROSE 5% 100 ML IV SCH ×2 (03:59→12:05)
[2018-10-04] MEDS: SODIUM CHLORIDE 0.9% 1000ML 1,000 ML IV SCH ×2 (03:59→12:06)
[2018-10-04] MEDS: LACTOBACILLUS ACIDOPHILUS (FLORANEX) TAB PO SCH ×2 (08:17→12:05)
[2018-10-04] MEDS: ATENOLOL 25 MG TABLET PO SCH (08:17)
[2018-10-04] MEDS: OXYCODONE HCL 10 MG TABCR (OXYCONTIN) PO SCH (08:18)
[2018-10-04] MEDS: PANTOprazole 40 MG in SYRINGE 0 ML IV SCH (08:18)
[2018-10-04 08:33] LABS: Hematocrit (blood only) 36.5 % (42-52); Hemoglobin 12.7 g/dL (14.0-18.0)
[2018-10-04 09:08] LABS: Creatinine Clr Calc Pharmacy 95.9 ml/min; Est GFR (African American) 89.9; Est GFR (Non-African American) 77.5
--- NOTE | 2018-10-04 13:49 | Hospitalist Progress Note ---
Date of Service October 04, 2018 Assessment & Plan (1) Hematemesis: Likely due to Natalie-Man tear H/O peptic ulcer disease S/P gastric ulcer clipping in 2018, erosive gastropathy Continue IV Protonix Appreciate GI input No plan for any procedures currently Tolerating diet Monitor H&H Transfuse PRBCs as needed Hb stable Abdominal pain improved Needs EGD as outpatient (2) Diverticulitis: CT ABD/pelvis showing early findings of uncomplicated sigmoid diverticulitis Colonoscopy 2017-showed diverticulosis in the sigmoid and descending colon, internal hemorrhoids No signs of sepsis Continue IV Zosyn Day #4 Pain control Plan to transition to p.o. antibiotics upon discharge (3) HTN (hypertension): Stable Continue lisinopril and atenolol (4) DVT prophylaxis: SCDs Re: GI bleeding Encouraged to ambulate CODE STATUS Full code Disposition Expect to discharge home in stable Subjective Patient is seen and examined at bedside Abdominal pain is much improved Denies any bleeding issues Tolerating diet Denies any chest pain, shortness of breath, nausea and vomiting Eager to get discharged We will discuss with GI today Review of Systems Review of Systems: All systems reviewed & are unremarkable except as noted in HPI & below Physical Exam Physical Exam: Physical Exam: Vitals signs as noted above General Appearance:Moderately built and nourished, no apparent distress Head: normocephalic, Atraumatic Eyes: normal inspection, EOMI Neck: supple, Trachea midline Respiratory/Chest: Normal breath sounds, CTA Cardiovascular: S1, S2, No murmur Abdomen/GI:Soft, Mild Left sided, epigastric tender, Bowel sounds present Extremities/Musculoskelatal:normal inspection, no edema 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:AAOX3, grossly no focal neurological deficits Skin: normal color, warm Results & Data Vital Signs (Past 12 Hours) Vital Signs Temp Pulse Resp BP Pulse Ox 10/04/18 07:29 36.6 C 67 18 138/83 99 Laboratory Results Short CBC 10/03/18 10/04/18 Range/Units 20:51 08:22 Hgb 12.3 L 12.7 L (14.0-18.0) g/dL Hct 35.6 L 36.5 L (42-52) % BMP 10/04/18 08:22 Creatinine 1.06 (1) HTN (hypertension) Hypertension type: unspecified Qualified Code(s): I10 - Essential (primary) hypertension
--- NOTE | 2018-10-04 14:59 | Gastroenterology Progress Note ---
Date of Service October 04, 2018 Assessment & Plan (1) Diverticulitis: 1. OK for DC from GI perspective. 2. OP Colonoscopy in 6-8 weeks (order placed our office will call him to arrange). 3. Total 10 days of broad spectrum antibiotics to cover diverticulitis (Cipro/flagyl or Augmenting). Present on Admission?: Yes Supervising Physician Co-Signing Physician Notes I saw and evaluated the patient. He does have a history of diverticulitis and appears to be clinically improving after day 3 of intravenous antibiotics. We are planning to do an outpatient colonoscopy in 6 to 8 weeks. Please call with any additional questions or concerns during the remainder of the hospital admission. Subjective Mr. Cr is a 58-year-old male with a history of GERD, hypertension, arthritis who presented for mild hematemesis though hemoglobin has been normal and was admitted was on 10/01 for abdominal pain, CT consistent with mild di verticulitis. On Zosyn, leukocytosis has resolved. Patient tells me he feels 85% better. Tolerated a low fiber otherwise regular consistency low-fat diet for breakfast and lunch w/o increased discomfort or any nausea/vomiting. Review of Systems Review of Systems: ROS: Gen: Denies weakness, fevers, weight loss Eyes: No eye redness, or pain, no recent vision changes Resp: No SOB, no cough Cardio: No palpitations/irregular beats, no chest pain GI: + abdominal pain which is much improved; no nausea/vomiting : Denies pain on urination Skin: No jaundice, itching or new rashes Physical Exam Constitutional: WD/WN, vitals as above Eyes: PERRL, conjunctivae normal, anicteric sclerae ENMT: external ear and nose normal, oropharynx normal Neck: trachea midline, no thyromegaly Respiratory: normal respiratory effort, lungs clear to auscultation Cardiovascular: RRR, no murmur, no edema Gastrointestinal (Abdomen): Inspection/Auscultation: abdomen normal to inspection and normal bowel sounds; abdomen not distended Percussion/Palpation: + abdomen tender (Minimal, diffuse) and abdomen soft; no guarding and no ascites Skin: no rashes, warm and dry Neurologic: PERRL, EOMI, accommodation nl, no face palsy, no dysarthria Psychiatric: A+Ox3, euthymic affect Lymphatic: no cervical or axillary lymphadenopathy Results & Data Vital Signs (Past 12 Hours) Vital Signs Temp Pulse Resp BP Pulse Ox 10/04/18 07:29 36.6 C 67 18 138/83 99 Laboratory Results Hemoglobin 12, hematocrit 36; WBC normal on 10/02. Diagnostic Findings Noncontrast CT abdomen pelvis 10/01: Subtle evidence of early acute uncomplicated diverticulitis of the mid sigmoid colon.
--- NOTE | 2018-10-04 15:03 | Discharge Summary ---
Date of Service October 04, 2018 Admission HPI Per Admitting Provider 58-year-old male who presents the ED with complaints of vomiting blood and abdominal pain. Patient reports that when he woke up this morning, he felt nauseous and subsequently had a lot of retching followed by hematemesis. He reports blood was initially bright red and then became darker red. He also has had associated left-sided abdominal pain with also some discomfort in the epigastric area. He reports pain is worse with a bowel movement. A few days ago patient reports he had some diarrhea however did not note any blood at that time. Today, diarrhea has resolved however patient reports some dark red blood in his stools today. Patient does not take any blood thinners, antiplatelets, or heavy NSAID use. He denies chest pain shortness of breath. No lightheadedness, dizziness, diaphoresis, syncopal events. Reports he otherwise been feeling well recently. No fevers or chills. He denies any urinary symptoms. In the ED, Hgb is stable at 14.5. CT ABD/pelvis is showing subtle evidence of early diverticulitis of the sigmoid colon. FOBT is positive. Patient was given IV Zosyn, IV Zofran, IV morphine, IV famotidine. Admission Exam Per Admitting Provider Physical Exam: Vitals signs as noted above General Appearance:Moderately built and nourished, no apparent distress Head: normocephalic, Atraumatic Eyes: normal inspection, EOMI Neck: supple, Trachea midline Respiratory/Chest: Normal breath sounds, CTA Cardiovascular: S1, S2, No murmur Abdomen/GI:Soft, Left sided, epigastric tender, Bowel sounds present Extremities/Musculoskelatal:normal inspection, no edema 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:AAOX3, grossly no focal neurological deficits Skin: normal color, warm Principal Diagnosis Discharge Information Discharge Diagnosis Acute diverticulitis Acute GI bleed Discharge Goals Decrease discomfort,Improve disease control, Improve function Discharge Activity Limitations Resume your previous activity Discharge Data Allergies Allergy/AdvReac Type Severity Reaction Status Date / Time ketorolac Allergy Severe SHORTNESS Verified 10/01/18 12:54 OF BREATH,RASH Consultations 10/01/18 16:55 ED Decision to Admit Stat 10/01/18 18:03 Consult Gastroenterology Routine Procedures Performed CT ABD: Subtle evidence of early acute uncomplicated diverticulitis of the mid sigmoid colon. Ordered Studies 10/01/18 12:45 CT abd pelvis wo con Stat Hospital Course (1) Hematemesis: Likely due to Natalie-Man tear H/O peptic ulcer disease S/P gastric ulcer clipping in 2018, erosive gastropathy Continue IV Protonix Appreciate GI input No plan for any procedures currently Tolerating diet Monitor H&H Transfuse PRBCs as needed Hb stable Abdominal pain improved Needs EGD as outpatient (2) Diverticulitis: CT ABD/pelvis showing early findings of uncomplicated sigmoid diverticulitis Colonoscopy 2017-showed diverticulosis in the sigmoid and descending colon, internal hemorrhoids No signs of sepsis Continue IV Zosyn Day #4 Pain control Plan to transition to p.o. antibiotics upon discharge (3) HTN (hypertension): Stable Continue lisinopril and atenolol (4) DVT prophylaxis: SCDs Re: GI bleeding Encouraged to ambulate CODE STATUS Full code Disposition Expect to discharge home in stable Total Time Total Time Spent Total Time Spent (In Minutes): 41 minutes Total Time Includes: Examination of the Patient, Discharge Planning, Medication Reconciliation, Communication With Other Providers and Other Discharge Plan Discharge Items Patient Disposition: Home - Self-Care Reason For Visit: GI BLEED,DIVERTICULITIS Discharge Diagnosis: Acute diverticulitis Acute GI bleed Discharge Goals: Decrease discomfort, Improve disease control and Improve function Activity: Resume your previous activity Exercise/Sports: Gradually increase as tolerated Non-emergency contact: Primary Care Provider and Steam Shovel Operator Call non-emergency contact if: you have any medication questions, your symptoms worsen, your pain is not controlled, your pain is worsening, your pain is unusual for you, your pain is concerning for you and you have a fever Follow-up/Referrals: PCP,NO [Primary Care Provider] - Diet: Heart Healthy and Low Fiber Addtl Provider Instructions: Follow-up with your primary care physician at [facility] in 1 week as advised Follow-up with your welfare worker for EGD as outpatient as recommended Complete the antibiotics course as prescribed Seek immediate medical attention if your symptoms reoccur or worsen Prescriptions: New Lactobacillus acidoph-L.bulgar [Floranex] 1 million cell Tablet 4 tab PO QIDM 10 Days Qty: 40 RF: 0 amoxicillin-pot clavulanate [Augmentin] 875-125 mg tablet 1 tab PO BID Qty: 13 RF: 0 Continued lisinopril 20 mg Tablet 20 mg PO QAM RF: 0 atenolol 25 mg Tablet 25 mg PO QAM RF: 0 pantoprazole 40 mg Tablet,Delayed Release (Dr/Ec) 40 mg PO BID RF: 0 oxycodone 5 mg Tablet 5 mg PO Q4H PRN (Reason: Pain) RF: 0 sucralfate [Carafate] 1 gram Tablet 1 g PO ACHS RF: 0 Stand-Alone Forms: [facility] Discharge Orders: Discharge Order (Routine); Ordered 10/04/18 Ordered By: Imtiaz Monroe Admission Data Admit Date/Time: 10/01/18 16:46 Attending Provider: Imtiaz Monroe Admit Provider: Imtiaz Monroe Primary Care Provider: PCP,NO Other Providers: Imtiaz Monroe ; Alphonse Cruz Service: Medical Other Interventions: Discharge Summary Assessment (RN) Last Done: 10/04/18 15:13 Pending Studies at Discharge: No DC Date/Time DO NOT enter until pt leaves facility: 10/04/18 15:25
== END 2018-10-04 15:25 | disposition home or self-care (01) | DRG 369 ==
LOC: ED 12:25 → 2W 16:46
DX: I10 Essential (primary) hypertension; K57.92 Diverticulitis of intestine, part unspecified, without perforation or abscess without bleeding; K22.6 Gastro-esophageal laceration-hemorrhage syndrome

== ENCOUNTER 2018-10-30 13:08 | Inpatient (IN) ==
[2018-10-30] MEDS ORDERED: SODIUM CHLORIDE 0.9% 500 ML IV SCH (14:00)
--- NOTE | 2018-10-30 14:06 | Emergency Department Note ---
Entered by Saroj Beyer acting as a scribe for Shayan Daniels DO History of Present Illness General Chief complaint: GI Bleed Stated complaint: SEVERE STOMACH PAIN, VOMITING BLOOD, BLOODY STOOLS Time Seen by Provider: 10/30/18 13:39 Source: patient History of Present Illness Onset (ago): hour(s) (upon waking up this morning) Location: abdomen (upper and left side) Pain Consistency: + other (episode) Maximum Pain Intensity: 8 Current Pain Intensity: 8 Quality: + stabbing Associated symptoms: + nausea/vomiting (blood in vomit) and + other (+blood in stool; +bloated) The patient is a 58 year old male who presents to the Emergency Room with complaints of an episode of upper and left sided abdominal pain that began following waking up this morning. The patient describes the pain as stabbing, a nd he rates it as an 8/10. The patient states he felt nauseous when he woke up this morning and vomited at 0830. The patient states this was the first of 3 episodes of vomiting that occurred today. The patient states that he noticed blood in his vomit. The patient reports that he then had a bowel movement about an hour after the first episode of vomiting, and the patient states he noticed blood with his stool, as well. The patient also reports of upper and left sided abdominal pain. The patient notes he feels bloated. The patient reports that he was in the ED about a month ago when he was diagnosed with diverticulitis. The patient states that he stayed a few days in the hospital and was given antibiotics upon leaving. He notes that he is scheduled for a follow-up with Dr. Arm[facility] on 11/17. Home Medications Home Medications Medication Instructions Recorded Confirmed Type atenolol 25 mg PO QAM 03/16/18 10/30/18 History lisinopril 20 mg PO QAM 03/16/18 10/30/18 History oxycodone 5 mg PO Q4H PRN 03/16/18 10/30/18 History pantoprazole 40 mg PO BID 03/16/18 10/30/18 History sucralfate [Carafate] 1 g PO ACHS 03/17/18 10/30/18 History Allergies Allergy/AdvReac Type Severity Reaction Status Date / Time ketorolac Allergy Severe SHORTNESS Verified 10/30/18 15:15 OF BREATH,RASH Past Med/Surg History Medical History Avascular necrosis of bone of right hip (Chronic) PUD (peptic ulcer disease) (Resolved) 2018 - gastric ulcer that required clipping GERD (gastroesophageal reflux disease) (Chronic) HTN (hypertension) (Chronic) Osteoarthritis (Chronic) Surgical History History of total right knee replacement (Chronic) S/P tonsillectomy (Resolved) S/P cholecystectomy (Resolved) S/P appendectomy (Resolved) H/O vasectomy (Resolved) S/P knee replacement (Resolved) Family History Father Coronary heart disease T2DM (type 2 diabetes mellitus) Mother Pancreatic cancer Hypertension Social History Preferred Language: [place] Communication Ability: Effective Refiner Operator Required: No Beliefs That Will Affect Care: None Current Living Situation: Other Current Living Situation Comment: Girlfriend Feels Safe at Home: Yes Smoking Status: Never smoker Second Hand Exposure: Yes (Girlfriend smokes but goes outside. Previous smoked. Mother did too.) ; Hx Alcohol Use: No Hx Substance Use: Yes (Roxycodone 5mg q4hr PRN) substance use type: opiates Last Used Substance: Hours (ago) Review of Systems See HPI for pertinent positives & negatives. and A total of 10 systems reviewed and were otherwise negative Physical Exam Vital Signs Vital Signs - 24 hr 10/30/18 13:34 10/30/18 14:38 10/30/18 15:00 Temperature 37.9 C H Temperature Source Oral Sepsis Recent Fever Within 48 Hours No Sepsis New/Unexplained Change in Mental Status No Sepsis Action Taken by Nursing No Action Required Pulse Rate 103 H 93 H Pulse Rate [Right Finger] 93 H 92 H Pulse Strength Normal Respiratory Rate 20 20 20 Respiratory Effort / Characteristics Non-Labored Spontaneous Non-Labored Spontaneous Non-Labored Spontaneous Respiratory Depth Normal Normal Normal Respiratory Pattern Regular Regular Regular Blood Pressure 148/84 H Blood Pressure [Left Arm] 134/80 149/92 H Blood Pressure Mean 105 Blood Pressure Mean [Left Arm] 98 111 Blood Pressure Position Sitting Blood Pressure Position [Left Arm] Sitting Sitting Pulse Oximetry 98 99 99 Oxygen Delivery Method Room Air Room Air 10/30/18 15:57 Temperature Temperature Source Sepsis Recent Fever Within 48 Hours Sepsis New/Unexplained Change in Mental Status Sepsis Action Taken by Nursing Pulse Rate Pulse Rate [Right Finger] 92 H Pulse Strength Respiratory Rate 20 Respiratory Effort / Characteristics Non-Labored Spontaneous Respiratory Depth Normal Respiratory Pattern Regular Blood Pressure Blood Pressure [Left Arm] 156/87 H Blood Pressure Mean Blood Pressure Mean [Left Arm] 110 Blood Pressure Position Blood Pressure Position [Left Arm] Sitting Pulse Oximetry 99 Oxygen Delivery Method Room Air CONSTITUTIONAL/VITAL SIGNS: Reviewed / noted above. GENERAL: Non-toxic in appearance. INTEGUMENTARY: Warm, dry, and [place]. HEAD: Normocephalic. EYES: without scleral icterus or trauma. ENT/OROPHARYNX: clear and moist. LYMPHADENOPATHY/NECK: Is supple without lymphadenopathy or meningismus. RESPIRATORY: Lungs clear and equal. CARDIOVASCULAR: Regular rate and rhythm. GI/ABDOMEN: Soft. Tenderness to palpation to left lower quadrant. No organomegaly or pulsatile mass. No rebound or guarding. Normal bowel sounds. EXTREMITIES: Warm and well perfused. BACK: No CVA tenderness. NEUROLOGICAL: Intact without focal deficits. PSYCHIATRIC: normal affect. MUSCULOSKELETAL: Normally developed with good muscle tone. Course 1344: Past medical records reviewed. The patient was evaluated in room C6. A com plete history and physical exam was performed. 1620: I reevaluated the patient and updated the patient on his case. 1632: I discussed the case with Joellen Mae. Dr. Nuria Mae will further evaluate the patient. Consultations Consultation #1: I discussed the case with Joellen Mae. Dr. Nuria Mae will further evaluate the patient. Time: 16:32 Administered Medications Ampicillin Sodium/Sulbactam Sodium 3,000 mg/ Sodium Chloride 108 mls @ 200 mls/hr IV NOW STA; Protocol Stop: 10/30/18 16:48 Last Admin: 10/30/18 16:34 Dose: 200 mls/hr Documented by: [id number] Discontinued Medications Sodium Chloride (Nss) 500 mls @ 999 mls/hr IV .Q31M VELIA Stop: 10/30/18 14:30 Last Infusion: 10/30/18 15:07 Dose: 0 mls/hr Documented by: [id number] Admin: 10/30/18 14:36 Dose: 999 mls/hr Documented by: [id number] Ranitidine HCl 50 mg/ Dextrose 102 mls @ 200 mls/hr IV NOW STA Stop: 10/30/18 14:47 Last Infusion: 10/30/18 15:07 Dose: 0 mls/hr Documented by: [id number] Admin: 10/30/18 14:36 Dose: 200 mls/hr Documented by: [id number] Morphine Sulfate (Morphine Sulfate) 4 mg IV NOW STA Stop: 10/30/18 15:49 Last Admin: 10/30/18 15:56 Dose: 4 mg Documented by: [id number] Ranitidine HCl (Zantac) 300 mg PO NOW STA Stop: 10/30/18 13:55 Last Admin: 10/30/18 14:29 Dose: Not Given Documented by: [id number] Medical Decision Making Differential Diagnosis Differential diagnosis: Etiologies such as appendicitis, diverticulitis, PUD, biliary pathology, UTI, pancreatitis, obstruction, mesenteric ischemia, aortic pathology, infections, inflammatory bowel disease, renal colic, as well as others were entertained. Medical Records Attestation: I reviewed the patient's medical records. Home Medications Current Medication List: was personally reviewed by me Laboratory Data Attestation: I reviewed the patient's lab results. Result diagrams: 10/30/18 14:05 10/30/18 14:05 Lab Results 10/30/18 10/30/18 10/30/18 Range/Units 14:05 14:05 14:37 WBC 6.00 (4.8-10.8) K/uL RBC 5.05 (4.7-6.1) M/uL Hgb 14.3 (14.0-18.0) g/dL Hct 41.3 L (42-52) % MCV 81.8 (80-100) fL MCH 28.3 (25-34) pg MCHC 34.6 (32-36) g/dL RDW Std Deviation 42.3 (36.4-46.3) fL RDW Coeff of Kim 14.2 (11.5-14.5) % Plt Count 177 (130-400) K/uL MPV 9.4 (7.4-10.4) fL Immature Gran % (Auto) 0.2 % Neut % (Auto) 78.2 % Lymph % (Auto) 7.5 % [place] % (Auto) 11.2 % Eos % (Auto) 2.7 % Baso % (Auto) 0.2 % Immature Gran # (Auto) 0.01 (0.00-0.02) K/uL Neut # (Auto) 4.70 (1.4-6.5) K/uL Lymph # (Auto) 0.45 L (1.2-3.4) K/uL [place] # (Auto) 0.67 H (0.11-0.59) K/uL Eos # (Auto) 0.16 (0-0.5) K/uL Baso # (Auto) 0.01 (0-0.2) K/uL Sodium 143 (136-145) mmol/L Potassium 4.1 (3.5-5.1) mmol/L Chloride 112 H (98-107) mmol/L Carbon Dioxide 27 (21-32) mmol/L Anion Gap 3.0 (3-11) BUN 13 (7-18) mg/dl Creatinine 0.96 (0.6-1.4) mg/dl Est Cr Clr Drug Dosing 104.8 ml/min Est GFR ( Amer) 101.3 Est GFR (Non-Af Amer) 87.4 BUN/Creatinine Ratio 13.4 (10-20) Glucose 98 (70-99) mg/dl Calcium 8.4 L (8.5-10.1) mg/dl Total Bilirubin 0.4 (0.2-1) mg/dl AST 13 L (15-37) U/L ALT 29 (12-78) U/L Alkaline Phosphatase 79 (45-117) U/L Total Protein 7.1 (6.4-8.2) gm/dl Albumin 4.0 (3.4-5.0) gm/dl Globulin 3.1 (2.5-4.0) gm/dl Albumin/Globulin Ratio 1.3 (0.9-2) Lipase 104 (73-393) U/L Urine Color Urine Appearance (Clear) Urine pH (4.5-7.5) Ur Specific [place] (1.000-1.030) Urine Protein (Negative) Urine Glucose (UA) (Negative) Urine Ketones (Negative) Urine Blood (Negative) Urine Nitrite (Negative) Urine Bilirubin (Negative) Urine Urobilinogen (Negative) Ur Leukocyte Esterase (Negative) Urine WBC (Auto) (0-5) /hpf Urine RBC (Auto) (0-4) /hpf U Hyaline Cast (Auto) (0-5) /lpf U Epithel Cells (Auto) (0-5) /lpf Urine Bacteria (Auto) (Negative) Blood Type O Negative Antibody Screen NEGATIVE 10/30/18 Range/Units 14:38 WBC (4.8-10.8) K/uL RBC (4.7-6.1) M/uL Hgb (14.0-18.0) g/dL Hct (42-52) % MCV (80-100) fL MCH (25-34) pg MCHC (32-36) g/dL RDW Std Deviation (36.4-46.3) fL RDW Coeff of Kim (11.5-14.5) % Plt Count (130-400) K/uL MPV (7.4-10.4) fL Immature Gran % (Auto) % Neut % (Auto) % Lymph % (Auto) % [place] % (Auto) % Eos % (Auto) % Baso % (Auto) % Immature Gran # (Auto) (0.00-0.02) K/uL Neut # (Auto) (1.4-6.5) K/uL Lymph # (Auto) (1.2-3.4) K/uL [place] # (Auto) (0.11-0.59) K/uL Eos # (Auto) (0-0.5) K/uL Baso # (Auto) (0-0.2) K/uL Sodium (136-145) mmol/L Potassium (3.5-5.1) mmol/L Chloride (98-107) mmol/L Carbon Dioxide (21-32) mmol/L Anion Gap (3-11) BUN (7-18) mg/dl Creatinine (0.6-1.4) mg/dl Est Cr Clr Drug Dosing ml/min Est GFR ( Amer) Est GFR (Non-Af Amer) BUN/Creatinine Ratio (10-20) Glucose (70-99) mg/dl Calcium (8.5-10.1) mg/dl Total Bilirubin (0.2-1) mg/dl AST (15-37) U/L ALT (12-78) U/L Alkaline Phosphatase (45-117) U/L Total Protein (6.4-8.2) gm/dl Albumin (3.4-5.0) gm/dl Globulin (2.5-4.0) gm/dl Albumin/Globulin Ratio (0.9-2) Lipase (73-393) U/L Urine Color Yellow Urine Appearance Clear (Clear) Urine pH 5.5 (4.5-7.5) Ur Specific [place] 1.011 (1.000-1.030) Urine Protein Negative (Negative) Urine Glucose (UA) Negative (Negative) Urine Ketones Negative (Negative) Urine Blood Negative (Negative) Urine Nitrite Negative (Negative) Urine Bilirubin Negative (Negative) Urine Urobilinogen Negative (Negative) Ur Leukocyte Esterase Trace H (Negative) Urine WBC (Auto) 1-5 (0-5) /hpf Urine RBC (Auto) 0-4 (0-4) /hpf U Hyaline Cast (Auto) 0 (0-5) /lpf U Epithel Cells (Auto) 5-10 H (0-5) /lpf Urine Bacteria (Auto) Negative (Negative) Blood Type Antibody Screen Imaging Data Radiologist's Impression: Radiology results as stated below per my review and the radiologist's interpretation: CT SCAN OF THE ABDOMEN AND PELVIS WITHOUT CONTRAST CLINICAL HISTORY: Left lower quadrant pain COMPARISON STUDY: 10/01/2018 TECHNIQUE: CT scan of the abdomen and pelvis was performed from the lung bases to the proximal femurs. Images are reviewed in the axial, sagittal, and coronal planes. IV contrast was not administered for this examination. A dose lowering technique was utilized adhering to the principles of ALARA. CT DOSE: 1573.79 mGy.cm FINDINGS: Lower chest: The heart is normal in size and configuration, without pericardial effusion. The lung bases and pleural spaces are clear. Liver: The unenhanced liver is normal in size, contour, and attenuation. There is no intrahepatic biliary ductal dilatation. Gallbladder: Surgically absent Spleen: Mildly enlarged measuring 14.7 cm. Pancreas: Unremarkable. Adrenal glands: Unremarkable. Kidneys: The unenhanced kidneys are normal in size without hydronephrosis. There is no contour deforming renal mass lesion. No renal calculi are identified. Bowel: There are no transition zones indicate bowel obstruction. The appendix is surgically absent. There is sigmoid diverticulosis with minimal infiltration the peridiverticular fat consistent with minimal diverticulitis. Peritoneum: There is no intraperitoneal free air or abdominal ascites. Vasculature: The abdominal aorta is normal in course and caliber. Adenopathy: None. Pelvic viscera: The bladder, and pelvic viscera are unremarkable. Skeletal structures: No destructive osseous lesions are seen. IMPRESSION: 1. No evidence of bowel obstruction. No evidence of free air 2. Colonic diverticulosis. Evidence of very subtle sigmoid diverticulitis. Electronically signed by: Artem Rosen M.D. 10/30/2018 3:03 PM Blood Pressure Blood Pressure Findings: Normal blood pressure MDM Narrative This is a 58-year-old male who presents to the ED with a chief complaint of left lower quadrant abdominal pain as well as vomiting blood and putting some blood this morning. The patient states that his symptoms started around 8:30 in the morning. He awoke nauseated and states that he threw up some blood with his first episode of vomiting. He states that about an hour and a half later he mov ed his bowels and he saw some blood in the stools. The patient reports a history of diverticulitis. He had this about a month ago and was treated for it. The patient reports some left lower quadrant abdominal pain as well as some left upper and epigastric abdominal pain. He has associated nausea. His temperature 37.9. His blood pressure was slightly elevated. His physical exam did reveal some tenderness to palpation of the left lower quadrant. The patient has a CT scan of the abdomen pelvis but that reveals findings suggesting mild diverticulitis. The patient reports that he had vomited blood 4 times this morning and he had one episode of small amount of vomiting blood today. His s tools were light brown guaiac positive. I did not see any gross blood. The patient's hemoglobin is normal. CBC is otherwise unremarkable. Chemistry panel was without significant abnormalities. The patient was treated with IV Unasyn. He was given IV Zosyn as well as IV Zantac he was also given IV fluids. Because of the patient's nausea and vomiting as well as hematemesis and mild acute diver ticulitis, the patient will be seen by the hospitalist for further evaluation and care. Impression & Plan Diverticulitis, Hematemesis Discharge Plan Visit Data Chief Complaint: GI Bleed Stated Complaint: SEVERE STOMACH PAIN, VOMITING BLOOD, BLOODY STOOLS ED Provider: Shyaan Daniels Discharge Problem: Diverticulitis, Hematemesis Patient Disposition: Being Evaluated by Hospitalist Forms Stand Alone Forms: My [facility] Prescriptions Prescriptions: No Action lisinopril 20 mg Tablet 20 mg PO QAM RF: 0 atenolol 25 mg Tablet 25 mg PO QAM RF: 0 pantoprazole 40 mg Tablet,Delayed Release (Dr/Ec) 40 mg PO BID RF: 0 oxycodone 5 mg Tablet 5 mg PO Q4H PRN (Reason: Pain) RF: 0 sucralfate [Carafate] 1 gram Tablet 1 g PO ACHS RF: 0 Referrals Referrals: PCP,NO [Primary Care Provider] - Discharge Problem: Hematemesis Qualifiers: Nausea presence: with nausea Qualified Code(s): K92.0 - Hematemesis The scribe's documentation has been prepared under my direction and personally reviewed by me in its entirety. I confirm that the note above accurately reflects all work, treatment, procedures, and medical decision making performed by me.
[2018-10-30 14:18] LABS: Basophils # (auto) 0.01 K/uL (0-0.2); Basophils % (auto) 0.2 %; Eosinophils # (auto) 0.16 K/uL (0-0.5); Eosinophils % (auto) 2.7 %; Hematocrit (blood only) 41.3 % (42-52); Hemoglobin 14.3 g/dL (14.0-18.0); Immature Granulocytes # (auto) 0.01 K/uL (0.00-0.02); Immature Granulocytes % (auto) 0.2 %; Lymphocytes # (auto) 0.45 K/uL (1.2-3.4); Lymphocytes % (auto) 7.5 %; Mean Corpuscular Hgb Conc 34.6 g/dL (32-36); Mean Corpuscular Volume 81.8 fL (80-100); Mean Platelet Volume 9.4 fL (7.4-10.4); Monocytes # (auto) 0.67 K/uL (0.11-0.59); Monocytes % (auto) 11.2 %; Neutrophils % (auto) 78.2 %; Platelet Count 177 K/uL (130-400); RDW Coefficient of Variation 14.2 % (11.5-14.5); RDW Standard Deviation 42.3 fL (36.4-46.3); Red Blood Count 5.05 M/uL (4.7-6.1)
[2018-10-30 14:34] LABS: Potassium 4.1 mmol/L (3.5-5.1)
[2018-10-30 14:35] LABS: BUN Creatinine Ratio 13.4 (10-20); Calcium 8.4 mg/dl (8.5-10.1); Creatinine Clr Calc Pharmacy 104.8 ml/min; Est GFR (African American) 101.3; Est GFR (Non-African American) 87.4
[2018-10-30 14:37] LABS: Albumin Globulin Ratio 1.3 (0.9-2); Bilirubin,Total 0.4 mg/dl (0.2-1); Globulin 3.1 gm/dl (2.5-4.0); Total Protein 7.1 gm/dl (6.4-8.2)
[2018-10-30 14:53] LABS: Appearance Urine Clear (Clear); Bacteria Urine Automated Negative (Negative); Bilirubin Urine Negative (Negative); Blood Urine Negative (Negative); Cast Urine Automated 0 /lpf (0-5); Color Urine Yellow; Glucose Urine UA Negative (Negative); Ketones Urine Negative (Negative); Leukocyte Esterase Urine Trace (Negative); Nitrite Urine Negative (Negative); Protein Urine Negative (Negative); RBC Urine Automated 0-4 /hpf (0-4); Specific Gravity Urine 1.011 (1.000-1.030); Urobilinogen Urine Negative (Negative); pH Urine 5.5 (4.5-7.5)
--- NOTE | 2018-10-30 15:05 | CT Scan Report ---
CT SCAN OF THE ABDOMEN AND PELVIS WITHOUT CONTRAST CLINICAL HISTORY: Left lower quadrant pain COMPARISON STUDY: 10/01/2018 TECHNIQUE: CT scan of the abdomen and pelvis was performed from the lung bases to the proximal femurs . Images are reviewed in the axial, sagittal, and coronal planes. IV contrast was not administered fo r this examination. A dose lowering technique was utilized adhering to the principles of ALARA. CT DOSE: 1573.79 mGy.cm FINDINGS: Lower chest: The heart is normal in size and configuration, without pericardial effusion. The lung ba ses and pleural spaces are clear. Liver: The unenhanced liver is normal in size, contour, and attenuation. There is no intrahepatic dieudonne iary ductal dilatation. Gallbladder: Surgically absent Spleen: Mildly enlarged measuring 14.7 cm. Pancreas: Unremarkable. Adrenal glands: Unremarkable. Kidneys: The unenhanced kidneys are normal in size without hydronephrosis. There is no contour deform ing renal mass lesion. No renal calculi are identified. Bowel: There are no transition zones indicate bowel obstruction. The appendix is surgically absent. T here is sigmoid diverticulosis with minimal infiltration the peridiverticular fat consistent with min imal diverticulitis. Peritoneum: There is no intraperitoneal free air or abdominal ascites. Vasculature: The abdominal aorta is normal in course and caliber. Adenopathy: None. Pelvic viscera: The bladder, and pelvic viscera are unremarkable. Skeletal structures: No destructive osseous lesions are seen. IMPRESSION: 1. No evidence of bowel obstruction. No evidence of free air 2. Colonic diverticulosis. Evidence of very subtle sigmoid diverticulitis. Electronically signed by: Artem Rosen M.D. 10/30/2018 3:03 PM
[2018-10-30] MEDS ORDERED: MoRPHine SULFATE 4 MG/ML 1 ML CARP\\VIAL IV STA (15:48)
[2018-10-30] MEDS ORDERED: AMPICILLIN/SULBACTAM SOD 3,000 MG in 0.9 % SODIUM CHLORIDE 100 ML IV STA (16:16)
[2018-10-30] MEDS ORDERED: PANTOprazole 80 MG in DEXTROSE 5% 100 ML IV STA (17:12)
--- NOTE | 2018-10-30 17:39 | History & Physical Report ---
Date of Service October 30, 2018 Assessment & Plan (1) Hematemesis: (2) Rectal bleeding: -Admit to [facility] with telemetry -Patient presenting from home with reports of hematemesis and bright bleeding per rectum -In the ED, patient is hemodynamically stable, hemoglobin stable at 14.3 (12.7 on 10/04) -Recent admission 10/01 through 10/04 for very similar symptoms, HD was not completed since patient's Hgb remained stable during admission; planned for outpatient colonoscopy on 11/17 -History of PUD S/P gastric ulcer clipping in 2018 -EGD 03/2018 showed nonbleeding erosive gastropathy -Will give PPI bolus followed by drip -Serial H&H -Clear liquids, n.p.o. after midnight -GI consult, input appreciated (3) Diverticulitis: -CT ABD/pelvis showing early subtle findings of uncomplicated sigmoid diverticulitis -Colonoscopy 2016-showed diverticulosis in the sigmoid and descending colon, internal hemorrhoids -Does not appear septic, no signs of abscess on CT scan -Received IV Unasyn in the ED, will continue with -Given reports of diarrhea, will check for C. difficile (4) HTN (hypertension): -BP controlled, continue lisinopril and atenolol (5) GERD (gastroesophageal reflux disease): -On IV PPI as above (6) DVT prophylaxis: -SCDs due to possible GI bleeding History of Present Illness Chief Complaint: Vomiting blood, abdominal pain Primary Care Provider: TONY 58-year-old male who presents the ED for evaluation of vomiting blood and abdominal pain. Patient was recently admitted to [facility] 10/01 through 10/04 for very similar symptoms. Patient also had findings of diverticulitis on CAT scan at that time. His hemoglobin remained stable during that hospitalization therefore EGD or colonoscopy was not completed. Patient was discharged on a course of Augmentin which he reports he has finished. Patient is scheduled to have an outpatient colonoscopy on 11/17. Patient reports he had been doing well until this morning. He reports he had some mild nausea and feelings of fatigue yesterday. This morning, he reports he had severe nausea and had several episodes of vomiting. He reports noticing specks of bright red blood in the emesis. He also had 2 very loose bowel movements with bright red blood as well. He reports epigastric and left-sided abdominal pain. He did not feel feverish or have chills at home, temperature in the ED is 37.9. Patient denies heavy NSAID use. He denies chest pain shortness of breath. He reports some mild lightheadedness this morning however denies any dizziness or syncopal events. No urinary symptoms. In the ED, Hgb is stable at 14.3. CT ABD/pelvis showing evidence of very subtle sigmoid diverticulitis. There is no leukocytosis. Patient was given IVF, IV ranitidine, IV morphine, IV Unasyn. Allergies Allergy/AdvReac Type Severity Reaction Status Date / Time ketorolac Allergy Severe SHORTNESS Verified 10/30/18 15:15 OF BREATH,RASH Home Medications Home Medications Medication Instructions Recorded Confirmed Type atenolol 25 mg PO QAM 03/16/18 10/30/18 History lisinopril 20 mg PO QAM 03/16/18 10/30/18 History oxycodone 5 mg PO Q4H PRN 03/16/18 10/30/18 History pantoprazole 40 mg PO BID 03/16/18 10/30/18 History sucralfate [Carafate] 1 g PO ACHS 03/17/18 10/30/18 History Past Med/Surg History Medical History Avascular necrosis of bone of right hip (Chronic) PUD (peptic ulcer disease) (Resolved) 2018 - gastric ulcer that required clipping GERD (gastroesophageal reflux disease) (Chronic) HTN (hypertension) (Chronic) Osteoarthritis (Chronic) Surgical History History of total right knee replacement (Chronic) S/P tonsillectomy (Resolved) S/P cholecystectomy (Resolved) S/P appendectomy (Resolved) H/O vasectomy (Resolved) S/P knee replacement (Resolved) Family History Father Coronary heart disease T2DM (type 2 diabetes mellitus) Mother Pancreatic cancer Hypertension Social History Preferred Language: Macedonian Communication Ability: Effective Safety Net Maker Required: No Beliefs That Will Affect Care: None Current Living Situation: Other Current Living Situation Comment: Girlfriend Other Information That Helps Us Care for You: No Feels Safe at Home: Yes Safety Concerns: Feels Safe At This Time Smoking Status: Never smoker Second Hand Exposure: Yes (Girlfriend smokes but goes outside. Previous smoked. Mother did too.) ; Hx Alcohol Use: No Hx Substance Use: Yes substance use type: opiates Substance Use Type Other:: Roxicodone 5 mg Q4H PRN Last Used Substance: Hours (ago) Review of Systems Review of Systems: ROS per HPI, all other systems reviewed and negative Physical Exam Constitutional: WD/WN, vitals as above Eyes: PERRL, conjunctivae normal, anicteric sclerae ENMT: external ear and nose normal, oropharynx normal Respiratory: normal respiratory effort, lungs clear to auscultation Cardiovascular: RRR, no murmur, no edema Gastrointestinal (Abdomen): Inspection/Auscultation: + abdomen distended and normal bowel sounds Percussion/Palpation: + abdomen tender (Epigastric, LUQ, LLQ) and abdomen soft; no hepatosplenomegaly Musculoskeletal: no cyanosis or clubbing, extremities motor strength 5/5 Skin: no rashes, warm and dry Neurologic: PERRL, EOMI, accommodation nl, no face palsy, no dysarthria Psychiatric: A+Ox3, euthymic affect Results & Data Vital Signs (Past 12 Hours) Vital Signs Temp Pulse Pulse Resp BP BP Pulse Ox 10/30/18 17:00 92 H 20 141/72 H 99 10/30/18 15:57 92 H 20 156/87 H 99 10/30/18 15:00 92 H 20 149/92 H 99 10/30/18 14:38 93 H 93 H 20 134/80 99 10/30/18 13:34 37.9 C H 103 H 20 148/84 H 98 Laboratory Results Short CBC 10/30/18 Range/Units 14:05 WBC 6.00 (4.8-10.8) K/uL Hgb 14.3 (14.0-18.0) g/dL Hct 41.3 L (42-52) % Plt Count 177 (130-400) K/uL BMP 10/30/18 14:05 Sodium 143 Potassium 4.1 Chloride 112 H Carbon Dioxide 27 BUN 13 Creatinine 0.96 Glucose 98 Calcium 8.4 L Liver Function 10/30/18 Range/Units 14:05 Total Bilirubin 0.4 (0.2-1) mg/dl AST 13 L (15-37) U/L ALT 29 (12-78) U/L Alkaline Phosphatase 79 (45-117) U/L Albumin 4.0 (3.4-5.0) gm/dl Urine 10/30/18 Range/Units 14:38 Urine Color Yellow Urine Appearance Clear (Clear) Urine pH 5.5 (4.5-7.5) Ur Specific [place] 1.011 (1.000-1.030) Urine Protein Negative (Negative) Urine Glucose (UA) Negative (Negative) Diagnostic Findings CT ABD/PELVIS IMPRESSION: 1. No evidence of bowel obstruction. No evidence of free air 2. Colonic diverticulosis. Evidence of very subtle sigmoid diverticulitis. Code Status & VTE Plan VTE Prophylaxis Plan VTE Prophylaxis will be ordered: Yes Supervising Physician Co-Signing Physician Notes I have seen and examined the patient and have discussed the case with the provider above. I agree with the assessment and plan as stated with the following exceptions. He is reporting specks of blood in his vomitus, not profuse hematemesis. He reports vomiting 4 times today, however, has no know trigger for this which started shortly after he woke up with the beginnings of LLQ pain. He reports feeling well for at least two weeks after discharge, including seeing some effect from positive lifestyle changes. He feels frustrated with the return of the pain. He reports compliance with the Augmentin that he was given to take at discharge. He reports bright red blood mixed into and around the stool one time today and an increase in his abdominal pain to where he is avoiding food because "I'm scared I will poop a ton of blood." From my quick review of the record, he has had acute diverticulitis only once last month that I can see, with repeat imaging today revealing evidence of mild diverticulitis also in the sigmoid colon. H/H appears stable and no clear risk factors for symptoms, and he is not on blood thinners. He is hemodynamically stable and afebrile on exam and is mentating clearly. Heart and lung exam is normal and abdominal exam reveals minor if any LLQ pain (when performed with distraction technique) with more grimacing occurring generally with the directed exam. Rectal exam was deferred. Agree with PPI drip and two PIV sites as a precaution although this doesn't appear to be a brisk GI bleed. Agree with abx pending clinical improvement. Appreciate GI recommendations. DO Rojelio (1) Hematemesis Nausea presence: with nausea Qualified Code(s): K92.0 - Hematemesis (2) HTN (hypertension) Hypertension type: unspecified Qualified Code(s): I10 - Essential (primary) hypertension
[2018-10-30] MEDS: PANTOprazole 40 MG in DEXTROSE 5% 100 ML IV SCH ×2 (17:49→23:03)
[2018-10-30] MEDS ORDERED: ACETAMINOPHEN 325 MG TAB PO PRN (18:27)
[2018-10-30] MEDS: SODIUM CHLORIDE 0.9% 1000ML 1,000 ML IV SCH (19:00)
[2018-10-30] MEDS: ONDANSETRON INJ 2 MG/ML 2 ML VIAL IV PRN (19:05)
[2018-10-30] MEDS: MoRPHine SULFATE 4 MG/ML 1 ML CARP\\VIAL IV PRN ×2 (19:05→22:59)
[2018-10-30] MEDS: AMPICILLIN/SULBACTAM SOD 3,000 MG in 0.9 % SODIUM CHLORIDE 100 ML IV SCH (21:32)
[2018-10-30 22:14] LABS: Hemoglobin 12.9 g/dL (14.0-18.0)
[2018-10-31] MEDS: MoRPHine SULFATE 4 MG/ML 1 ML CARP\\VIAL IV PRN ×5 (03:03→20:08)
[2018-10-31] MEDS: ONDANSETRON INJ 2 MG/ML 2 ML VIAL IV PRN ×3 (03:04→20:08)
[2018-10-31] MEDS: PANTOprazole 40 MG in DEXTROSE 5% 100 ML IV SCH ×3 (03:20→13:43)
[2018-10-31] MEDS: AMPICILLIN/SULBACTAM SOD 3,000 MG in 0.9 % SODIUM CHLORIDE 100 ML IV SCH ×4 (03:26→21:35)
[2018-10-31 07:51] LABS: Hematocrit (blood only) 35.9 % (42-52); Hemoglobin 12.6 g/dL (14.0-18.0); Mean Corpuscular Hgb Conc 35.1 g/dL (32-36); Mean Corpuscular Volume 81.2 fL (80-100); Mean Platelet Volume 9.2 fL (7.4-10.4); Platelet Count 166 K/uL (130-400); RDW Coefficient of Variation 14.3 % (11.5-14.5); RDW Standard Deviation 42.7 fL (36.4-46.3); Red Blood Count 4.42 M/uL (4.7-6.1); White Blood Count 5.74 K/uL (4.8-10.8)
[2018-10-31 08:21] LABS: BUN Creatinine Ratio 11.8 (10-20); Calcium 7.8 mg/dl (8.5-10.1); Creatinine Clr Calc Pharmacy 119.4 ml/min; Est GFR (African American) 112.7; Est GFR (Non-African American) 97.2; Potassium 3.4 mmol/L (3.5-5.1)
[2018-10-31] MEDS: LISINOPRIL 20 MG TAB PO SCH (08:35)
[2018-10-31] MEDS: ATENOLOL 25 MG TABLET PO SCH (08:35)
[2018-10-31] MEDS: SODIUM CHLORIDE 0.9% 1000ML 1,000 ML IV SCH ×2 (08:48→21:29)
[2018-10-31] MEDS ORDERED: POTASSIUM CHLORIDE 10 MEQ TABCR PO STA (09:24)
--- NOTE | 2018-10-31 15:15 | Hospitalist Progress Note ---
Date of Service October 31, 2018 Assessment & Plan (1) Hematemesis: (2) Rectal bleeding: Recurrent diverticulitis, hematemesis GI bleeding H/O PUD S/P gastric ulcer clipping in 2018 Last EGD 03/2018 showed nonbleeding erosive gastropathy Denies Aspirin, NSAIDs use CT ABD: No evidence of bowel obstruction. No evidence of free air Colonic diverticulosis. Evidence of very subtle sigmoid diverticulitis. Hb fairly stable Continue PPI ggt Monitor CBC Continue IV Abx Transfuse PRBCs PRN NPO for now Await for GI Input (3) Diverticulitis: Management as above Check stool for C diff if recurrence of diarrhea (4) HTN (hypertension): BP stable Continue lisinopril, atenolol (5) GERD (gastroesophageal reflux disease): On IV PPI (6) DVT prophylaxis: SCDs Re: GI bleeding Code Status Full Code Disposition Expect to discharge home when stable Subjective Patient is seen and examined at bedside Denies any bleeding issues Reports nausea but no vomiting Abdominal pain is about the same as yesterday No bowel movement today Denies any chest pain, shortness of breath Offers no other complaints Review of Systems Review of Systems: All systems reviewed & are unremarkable except as noted in HPI & below Physical Exam Physical Exam: Physical Exam: Vitals signs as noted above General Appearance:Moderately built and nourished, no apparent distress Head: normocephalic, Atraumatic Eyes: normal inspection, EOMI Neck: supple, Trachea midline Respiratory/Chest: Normal breath sounds, CTA Cardiovascular: S1, S2, No murmur Abdomen/GI:Soft, Generalized tender, No guarding/rigidity, Bowel sounds present Extremities/Musculoskelatal:normal inspection, no edema 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:AAOX3, grossly no focal neurological deficits Skin: normal color, warm Results & Data Vital Signs (Past 12 Hours) Vital Signs Temp Pulse Pulse Resp BP Pulse Ox 10/31/18 14:47 36.9 C 74 20 114/65 98 10/31/18 09:00 86 10/31/18 06:20 37.3 C 93 H 20 119/65 96 10/31/18 03:49 37.2 C 90 20 119/68 95 Laboratory Results Short CBC 10/30/18 10/31/18 Range/Units 21:54 07:16 WBC 5.74 (4.8-10.8) K/uL Hgb 12.9 L 12.6 L (14.0-18.0) g/dL Hct 38.0 L 35.9 L (42-52) % Plt Count 166 (130-400) K/uL BMP 10/31/18 07:16 Sodium 144 Potassium 3.4 L D Chloride 114 H Carbon Dioxide 25 BUN 10 Creatinine 0.84 Glucose 95 Calcium 7.8 L (1) Hematemesis Nausea presence: with nausea Qualified Code(s): K92.0 - Hematemesis (2) HTN (hypertension) Hypertension type: unspecified Qualified Code(s): I10 - Essential (primary) hypertension
--- NOTE | 2018-10-31 16:45 | Gastrointestinal Consultation ---
Date of Consultation October 31, 2018 Assessment & Plan (1) Rectal bleeding: (2) GERD (gastroesophageal reflux disease): (3) Hematemesis: Continue Protonix, but stop gtt, and give Pantoprazole 40 mg IV BID No further overt GI blood loss, and H/H is stable, would not proceed with EGD now unless he has further overt bleeding. (4) Diverticulitis: Continue IV abx and complete 10 day course of therapy Could consider surgery consult for recurrent acute diverticulitis Continue clear liquid diet, and advance to low fiber diet as tolerated History of Present Illness Reason for Consultation: GI bleed Attending Physician: Imtiaz Monroe MD History of Present Illness Patrice Cr presented to the ER with complaints of GERD, hematemesis and diffuse abdominal pain on 10/30/2018. Upon arrival, he was noted to have a normal H/H. He subsequently underwent a CT abd/pelvis, and was noted to have sigmoid diverticulitis. He was started on IV Abx and PPI gtt, and admitted. Of note, he was admitted with similar symptoms in September, and was scheduled to have a colonoscopy with Dr. Armando in November. He also has a history of PUD in 2017, and was treated endoscopically at that time by Dr. Jarrett. At the time that I saw the patient, he was feeling slightly improved. He continues to complain of generalized abdominal pain rated at 4/10 in intensity, non- radiating, exacerbated with meals, and improved with narcotic analgesia. He has not had any further hematemesis, melena, or hematochezia since his arrival. His H/H today was 12.6 and 35.9. He does complain of some nausea, however, it has improved with PRN Zofran therapy. He denies any further complaints at present. Allergies Allergy/AdvReac Type Severity Reaction Status Date / Time ketorolac Allergy Severe SHORTNESS Verified 10/30/18 15:15 OF BREATH,RASH Home Medications Home Medications Medication Instructions Recorded Confirmed Type atenolol 25 mg PO QAM 03/16/18 10/30/18 History lisinopril 20 mg PO QAM 03/16/18 10/30/18 History oxycodone 5 mg PO Q4H PRN 03/16/18 10/30/18 History pantoprazole 40 mg PO BID 03/16/18 10/30/18 History sucralfate [Carafate] 1 g PO ACHS 03/17/18 10/30/18 History Patient History Medical History Avascular necrosis of bone of right hip (Chronic) PUD (peptic ulcer disease) (Resolved) 2018 - gastric ulcer that required clipping GERD (gastroesophageal reflux disease) (Chronic) HTN (hypertension) (Chronic) Osteoarthritis (Chronic) Surgical History History of total right knee replacement (Chronic) S/P tonsillectomy (Resolved) S/P cholecystectomy (Resolved) S/P appendectomy (Resolved) H/O vasectomy (Resolved) S/P knee replacement (Resolved) Family History Father Coronary heart disease T2DM (type 2 diabetes mellitus) Mother Pancreatic cancer Hypertension Social History Preferred Language: Maltese Communication Ability: Effective Cabbage Salter Required: No Beliefs That Will Affect Care: None Current Living Situation: Other Current Living Situation Comment: Girlfriend Other Information That Helps Us Care for You: No Feels Safe at Home: Yes Safety Concerns: Feels Safe At This Time Smoking Status: Never smoker Second Hand Exposure: Yes (Girlfriend smokes but goes outside. Previous smoked. Mother did too.) ; Hx Alcohol Use: No Hx Substance Use: Yes substance use type: opiates Substance Use Type Other:: Roxicodone 5 mg Q4H PRN Last Used Substance: Hours (ago) Review of Systems Review of Systems: All systems reviewed & are unremarkable except as noted in HPI & below Physical Exam Constitutional: WD/WN, vitals as above Respiratory: normal respiratory effort, lungs clear to auscultation Cardiovascular: RRR, no murmur, no edema Gastrointestinal (Abdomen): normal bowel sounds, soft, nontender, no hepatosplenomegaly Skin: no rashes, warm and dry Psychiatric: A+Ox3, euthymic affect Results & Data Vital Signs (Past 12 Hours) Vital Signs Temp Pulse Pulse Resp BP Pulse Ox 10/31/18 14:47 36.9 C 74 20 114/65 98 10/31/18 09:00 86 10/31/18 06:20 37.3 C 93 H 20 119/65 96 PG Care Time/CCT Total # of Minutes Spent Total Time Spent with Patient: Total time spent is greater than 50% in coordination of care (as documented) at patient's floor/unit and/or counseling patient: (1) Hematemesis Nausea presence: with nausea Qualified Code(s): K92.0 - Hematemesis
[2018-11-01] MEDS: MoRPHine SULFATE 4 MG/ML 1 ML CARP\\VIAL IV PRN ×6 (00:05→20:54)
[2018-11-01] MEDS: AMPICILLIN/SULBACTAM SOD 3,000 MG in 0.9 % SODIUM CHLORIDE 100 ML IV SCH ×4 (04:13→21:25)
[2018-11-01 06:53] LABS: Hematocrit (blood only) 34.4 % (42-52); Hemoglobin 11.6 g/dL (14.0-18.0)
[2018-11-01 07:28] LABS: BUN Creatinine Ratio 9.6 (10-20); Calcium 8.2 mg/dl (8.5-10.1); Creatinine Clr Calc Pharmacy 113.8 ml/min; Est GFR (African American) 110.5; Est GFR (Non-African American) 95.4; Magnesium 2.1 mg/dl (1.8-2.4); Potassium 3.8 mmol/L (3.5-5.1)
[2018-11-01] MEDS: PANTOprazole 40 MG in SYRINGE 0 ML IV SCH ×2 (08:16→21:25)
[2018-11-01] MEDS: ONDANSETRON INJ 2 MG/ML 2 ML VIAL IV PRN ×2 (08:19→16:24)
[2018-11-01] MEDS: ATENOLOL 25 MG TABLET PO SCH (08:27)
[2018-11-01] MEDS: LISINOPRIL 20 MG TAB PO SCH (08:27)
--- NOTE | 2018-11-01 09:59 | Surgery Consultation ---
Date of Consultation November 01, 2018 Assessment & Plan (1) Diverticulitis: This is a 58y M who presents with left sided abdominal pain associated with hematemesis and a single bloody BM. Surgery consulted as patient's CT scan shows colonic diverticulosis and very subtle findings of diverticulitis of the sigmoid colon, concerning for recurrent diverticulitis. In 09/[address] scan showing early acute uncomplicated diverticulitis of the mid sigmoid. His current CT findings may represent ongoing resolution of his most recent diverticulitis flare in 09/2018. Patient states he had an unwitnessed bout of vomiting with blood in it this AM and Hbg down to 11.6 from 14.6 on day of pre sentation, therefore we would recommend an EGD this admission. In terms of his diverticulitis would recommend ongoing monitoring with GI and have patient undergo colonoscopy as an outpatient when safe from their perspective. Have patient complete a course of abx. Will have patient follow up with general surgery after a complete GI workup for surgical planning. Dr. Davis will see and examine this patient this afternoon and we will continue to follow. Supervising Physician Co-Signing Physician Notes pt evaluated and concur with Case DUMONT minimal diverticulitis recurrent no surgery rec advised pt to maximize diet modification and f/u with repeat colonoscopy as planned( pt had coloscopy 2 years ago and questions polyp disease at that time strong rec EGD on f/u peptic ulcer disease since had "ulcer clipped" cristian 2 years ago and never had repeat EGD most of pt discomfort is mid epigastric some back pain and non specific pain left side and lower abd History of Present Illness Reason for Consultation: Sigmoid diverticulitis Attending Physician: Imtiaz Monroe MD History of Present Illness This is a 58y M with a PMH significant for PUD and diverticulitis who presented to [facility] on 10/30 after experiencing several episodes of vomitus with blood, associated with left sided abdominal pain, and 1 episode of dark tinged diarrhea. The patient explains that this is the 7th time he has experienced similar symptoms in the past 5 years and the 3rd time this year alone. He was most recently admitted in 10/01 with hematemesis, bloody BM's, and abdominal pain where he was found to have acute uncomplicated diverticulitis on a CT scan. H/H remained stable therefore no scopes were performed and he was sent home with a course of abx. Of note he has had an EGD in 2018 where clipping was performed for a non-bleeding ulcer, again in 2019 where there was non bleeding gastropathy that was biopsied returning as mild chronic gastritis. Patient was prescribed a ppi that he takes bid. The patient describes his abdominal pain as crampy and stabbing in the upper abdomen that travels all the way down the left side. The patient states that his bowel movements are usually formed and regular daily.He denies any sick contacts, fevers, or chills. Patient started a clear liquid diet yesterday, tolerated well without vomiting, but did have an episode of vomiting with blood specks today that was unwitnessed. Surgery was consulted as patient's CT scan in the ED shows colonic diverticulosis with some subtle sigmoid diverticulitis. Patient's last colonoscopy was performed in 2016 showing diverticulosis of the descending and sigmoid colon with some internal hemorrhoids. He is currently scheduled for a repeat colonoscopy with Dr. Armando on 11/17/18. Patient states that he is tired of coming into the hospital with these symptoms and does not feel much better than when he came in on thursday. He denies any NSAID use over the past two years and is on oxycodone for hip pain. Patient does not take blood thinners. Allergies Allergy/AdvReac Type Severity Reaction Status Date / Time ketorolac Allergy Severe SHORTNESS Verified 10/30/18 15:15 OF BREATH,RASH Home Medications Home Medications Medication Instructions Recorded Confirmed Type atenolol 25 mg PO QAM 03/16/18 10/30/18 History lisinopril 20 mg PO QAM 03/16/18 10/30/18 History oxycodone 5 mg PO Q4H PRN 03/16/18 10/30/18 History pantoprazole 40 mg PO BID 03/16/18 10/30/18 History sucralfate [Carafate] 1 g PO ACHS 03/17/18 10/30/18 History Patient History Medical History Avascular necrosis of bone of right hip (Chronic) PUD (peptic ulcer disease) (Resolved) 2018 - gastric ulcer that required clipping GERD (gastroesophageal reflux disease) (Chronic) HTN (hypertension) (Chronic) Osteoarthritis (Chronic) Surgical History History of total right knee replacement (Chronic) S/P tonsillectomy (Resolved) S/P cholecystectomy (Resolved) S/P appendectomy (Resolved) H/O vasectomy (Resolved) S/P knee replacement (Resolved) Family History Father Coronary heart disease T2DM (type 2 diabetes mellitus) Mother Pancreatic cancer Hypertension Social History Preferred Language: [place] Island[place] Communication Ability: Effective Front Office Manager Required: No Beliefs That Will Affect Care: None marital status: Current Living Situation: Other Current Living Situation Comment: Girlfriend Other Information That Helps Us Care for You: No Feels Safe at Home: Yes Safety Concerns: Feels Safe At This Time Smoking Status: Never smoker Second Hand Exposure: Yes (Girlfriend smokes but goes outside. Previous smoked. Mother did too.) ; Hx Alcohol Use: No Hx Substance Use: Yes substance use type: opiates Substance Use Type Other:: Roxicodone 5 mg Q4H PRN Last Used Substance: Hours (ago) Review of Systems Constitutional: + fatigue; no fever and no chills Gastrointestinal: + abdominal pain (epigastric abdominal pain, left sided abdominal pain), + nausea, + vomiting, + hematemesis and + blood in stools Physical Exam Constitutional: well developed and well nourished; no acute distress Respiratory: normal respiratory effort Auscultation: lungs clear to auscultation bilaterally Cardiovascular: Rate/Rhythm: regular rate and regular rhythm Gastrointestinal (Abdomen): Inspection/Auscultation: + abdomen distended (mild) and + abdominal surgical incision (surgical scar from open appendectomy and laparoscopic cholecystectomy) Percussion/Palpation: + abdomen tender (mild tenderness to palpation in epigastric region and left sided abdomen), + guarding and abdomen soft Results & Data Vital Signs (Past 12 Hours) Vital Signs Temp Pulse Pulse Resp BP Pulse Ox 11/01/18 06:31 36.7 C 63 19 108/66 96 11/01/18 04:34 36.6 C 66 20 114/64 99 10/31/18 23:06 66 10/31/18 22:42 37.1 C 66 20 113/[address] SCAN OF THE ABDOMEN AND PELVIS WITHOUT CONTRAST CLINICAL HISTORY: Left lower quadrant pain COMPARISON STUDY: 10/01/2018 TECHNIQUE: CT scan of the abdomen and pelvis was performed from the lung bases to the proximal femurs. Images are reviewed in the axial, sagittal, and coronal planes. IV contrast was not administered for this examination. A dose lowering technique was utilized adhering to the principles of ALARA. CT DOSE: 1573.79 mGy.cm FINDINGS: Lower chest: The heart is normal in size and configuration, without pericardial effusion. The lung bases and pleural spaces are clear. Liver: The unenhanced liver is normal in size, contour, and attenuation. There is no intrahepatic biliary ductal dilatation. Gallbladder: Surgically absent Spleen: Mildly enlarged measuring 14.7 cm. Pancreas: Unremarkable. Adrenal glands: Unremarkable. Kidneys: The unenhanced kidneys are normal in size without hydronephrosis. There is no contour deforming renal mass lesion. No renal calculi are identified. Bowel: There are no transition zones indicate bowel obstruction. The appendix is surgically absent. There is sigmoid diverticulosis with minimal infiltration the peridiverticular fat consistent with minimal diverticulitis. Peritoneum: There is no intraperitoneal free air or abdominal ascites. Vasculature: The abdominal aorta is normal in course and caliber. Adenopathy: None. Pelvic viscera: The bladder, and pelvic viscera are unremarkable. Skeletal structures: No destructive osseous lesions are seen. IMPRESSION: 1. No evidence of bowel obstruction. No evidence of free air 2. Colonic diverticulosis. Evidence of very subtle sigmoid diverticulitis. PG Care Time/CCT Total # of Minutes Spent Total Time Spent with Patient: Total time spent is greater than 50% in coordination of care (as documented) at patient's floor/unit and/or counseling patient:
[2018-11-01] MEDS: SODIUM CHLORIDE 0.9% 1000ML 1,000 ML IV SCH (10:31)
--- NOTE | 2018-11-01 11:28 | Gastroenterology Progress Note ---
Date of Service November 01, 2018 Assessment & Plan (1) Diverticulitis: Cipro/Flagyl x total 10 days. Clear liquids po. Present on Admission?: Yes (2) Hematemesis: If witnessed hematemesis or drop in Hb (he has had a drop but likely most of that is hemodilutional thus far), then will go forward with EGD. OK for clear liquids today. Will continue to follow. Present on Admission?: Yes Supervising Physician Co-Signing Physician Notes I have performed a history and physical examination of this patient and reviewed the electronic medical record. Specifically, on physical examination there is moderate direct LLQ tenderness. I have discussed the case with HUEY Carmen. The above note reflects my findings, conclusions, and recommendations. Himanshu Olson MD Subjective Mr. Patrice Cr is a 58 yr old male admitted on 10/31 with c/o GERD, hematemesis and diffuse abdominal pain. CT abd/pelvis with diverticulitis. Pt reports hematemesis prior to and as recently as this morning, one episode, but unwitnessed and Hb 14 on arrival, 11.6 today. On exam - abd soft, no obvious distention, diffusely tender over nearly the entire abdomen. Review of Systems Review of Systems: ROS: Gen: Denies weakness, fevers, weight loss Eyes: No eye redness, or pain, no recent vision changes Resp: No SOB, no cough Cardio: No palpitations/irregular beats, no chest pain GI: See HPI : Denies pain on urination Skin: No jaundice, itching or new rashes Physical Exam Constitutional: WD/WN, vitals as above + obese Eyes: PERRL, conjunctivae normal, anicteric sclerae ENMT: external ear and nose normal, oropharynx normal Neck: trachea midline, no thyromegaly Respiratory: normal respiratory effort, lungs clear to auscultation Cardiovascular: RRR, no murmur, no edema Gastrointestinal (Abdomen): Inspection/Auscultation: abdomen normal to inspec tion Percussion/Palpation: + abdomen tender (epigastric, LUQ, RUQ, periumbilical, LLQ) and abdomen soft Skin: no rashes, warm and dry Neurologic: PERRL, EOMI, accommodation nl, no face palsy, no dysarthria Psychiatric: A+Ox3, euthymic affect Lymphatic: no cervical or axillary lymphadenopathy Results & Data Vital Signs (Past 12 Hours) Vital Signs Temp Pulse Resp BP Pulse Ox 11/01/18 06:31 36.7 C 63 19 108/66 96 11/01/18 04:34 36.6 C 66 20 114/64 99 (1) Hematemesis Nausea presence: with nausea Qualified Code(s): K92.0 - Hematemesis
--- NOTE | 2018-11-01 16:34 | Hospitalist Progress Note ---
Date of Service November 01, 2018 Assessment & Plan (1) Hematemesis: (2) Rectal bleeding: Recurrent diverticulitis, hematemesis GI bleeding H/O PUD S/P gastric ulcer clipping in 2018 Last EGD 03/2018 showed nonbleeding erosive gastropathy Denies Aspirin, NSAIDs use CT ABD: No evidence of bowel obstruction. No evidence of free air Colonic diverticulosis. Evidence of very subtle sigmoid diverticulitis. Hb drop partly hemodilutional Continue PPI BID Monitor CBC Continue IV Abx to complete 10 day course Transfuse PRBCs PRN Advance diet as tolerated Planned for EGD/Colonoscopy as outpatient unless recurrence of GI bleed Appreciate GI/Surgery Input No plan for any surgery currently (3) Diverticulitis: Management as above Check stool for C diff if recurrence of diarrhea (4) HTN (hypertension): BP stable Continue lisinopril, atenolol (5) GERD (gastroesophageal reflux disease): On IV PPI (6) DVT prophylaxis: SCDs Re: GI bleeding Code Status Full Code Disposition Expect to discharge home when stable Subjective Patient is seen and examined at bedside States having minimal blood in [place] this morning--Unwitnessed by Staff Has loose BM today--Non bloody States no change in abdominal pain Discussed with GI and surgery today States not tolerated liquid diet this morning Denies any chest pain, shortness of breath No other complaints Review of Systems Review of Systems: All systems reviewed & are unremarkable except as noted in HPI & below Physical Exam Physical Exam: Physical Exam: Vitals signs as noted above General Appearance:Moderately built and nourished, no apparent distress Head: normocephalic, Atraumatic Eyes: normal inspection, EOMI Neck: supple, Trachea midline Respiratory/Chest: Normal breath sounds, CTA Cardiovascular: S1, S2, No murmur Abdomen/GI:Soft, Generalized tender, mild guarding, Bowel sounds present Extremities/Musculoskelatal:normal inspection, no edema 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:AAOX3, grossly no focal neurological deficits Skin: normal color, warm Results & Data Vital Signs (Past 12 Hours) Vital Signs Temp Pulse Resp BP BP Pulse Ox 11/01/18 15:41 37.0 C 65 18 115/64 97 11/01/18 11:29 36.9 C 61 20 149/88 H 97 11/01/18 06:31 36.7 C 63 19 108/66 96 11/01/18 04:34 36.6 C 66 20 114/64 99 Laboratory Results Short CBC 11/01/18 Range/Units 06:38 Hgb 11.6 L (14.0-18.0) g/dL Hct 34.4 L (42-52) % BMP 11/01/18 06:38 Sodium 144 Potassium 3.8 Chloride 113 H Carbon Dioxide 27 BUN 8 Creatinine 0.88 Glucose 85 Calcium 8.2 L (1) Hematemesis Nausea presence: with nausea Qualified Code(s): K92.0 - Hematemesis (2) HTN (hypertension) Hypertension type: unspecified Qualified Code(s): I10 - Essential (primary) hypertension
[2018-11-02] MEDS: SODIUM CHLORIDE 0.9% 1000ML 1,000 ML IV SCH (00:18)
[2018-11-02] MEDS: ONDANSETRON INJ 2 MG/ML 2 ML VIAL IV PRN (00:59)
[2018-11-02] MEDS: MoRPHine SULFATE 4 MG/ML 1 ML CARP\\VIAL IV PRN ×3 (00:59→10:07)
[2018-11-02] MEDS: AMPICILLIN/SULBACTAM SOD 3,000 MG in 0.9 % SODIUM CHLORIDE 100 ML IV SCH ×2 (04:08→10:06)
[2018-11-02 06:15] LABS: Hematocrit (blood only) 34.3 % (42-52); Hemoglobin 11.6 g/dL (14.0-18.0)
[2018-11-02] MEDS: LISINOPRIL 20 MG TAB PO SCH (09:03)
[2018-11-02] MEDS: ATENOLOL 25 MG TABLET PO SCH (09:03)
[2018-11-02] MEDS: PANTOprazole 40 MG in SYRINGE 0 ML IV SCH (09:22)
[2018-11-02] MEDS ORDERED: OXYCODONE HCL IR 5 MG TAB (IMMEDIATE RELEASE) PO PRN (09:57)
--- NOTE | 2018-11-02 11:37 | Gastroenterology Progress Note ---
Date of Service November 02, 2018 Assessment & Plan (1) Diverticulitis: Cipro/Flagyl x total 10 days. Low fiber diet. (2) Hematemesis: No witnessed hematemesis and Hb relatively stable: 11.6. Will arrange OP EGD with OP colonoscopy in 6-8 weeks. Supervising Physician Co-Signing Physician Notes I have performed a history and physical examination of this patient and reviewed the electronic medical record. Specifically, on physical examination there is mild to moderate LLQ tenderness. I have discussed the case with HUEY Carmen. The above note reflects my findings, conclusions, and recommendations. Himanshu Olson MD Subjective Mr. Patrice Cr is a 58 yr old male with recurrent diverticulitis. No hematemesis today. BM - brown, formed yesterday. Pt continues to c/o LLQ pain and ask for pain meds but has been on the phone and able to walk in room w/o assistance. Tolerating low fiber diet. Review of Systems Review of Systems: ROS: Gen: Denies weakness, fevers, weight loss Eyes: No eye redness, or pain, no recent vision changes Resp: No SOB, no cough Cardio: No palpitations/irregular beats, no chest pain GI: See HPI : Denies pain on urination Skin: No jaundice, itching or new rashes Physical Exam Constitutional: WD/WN, vitals as above + obese Eyes: PERRL, conjunctivae normal, anicteric sclerae ENMT: external ear and nose normal, oropharynx normal Neck: trachea midline, no thyromegaly Respiratory: normal respiratory effort, lungs clear to auscultation Cardiovascular: RRR, no murmur, no edema Gastrointestinal (Abdomen): Inspection/Auscultation: abdomen normal to inspection Percussion/Palpation: + abdomen tender (mild LLQ) and abdomen soft Skin: no rashes, warm and dry Neurologic: PERRL, EOMI, accommodation nl, no face palsy, no dysarthria Psychiatric: A+Ox3, euthymic affect Lymphatic: no cervical or axillary lymphadenopathy Results & Data Vital Signs (Past 12 Hours) Vital Signs Temp Pulse Pulse Resp BP Pulse Ox 11/02/18 09:00 54 L 11/02/18 07:08 36.8 C 64 20 144/78 H 98 11/02/18 04:00 36.7 C 58 L 20 112/71 97 (1) Hematemesis Nausea presence: with nausea Qualified Code(s): K92.0 - Hematemesis
--- NOTE | 2018-11-02 13:44 | Surgery Progress Note ---
Date of Service November 02, 2018 Assessment & Plan (1) Diverticulitis: Continue diet advancement as tolerated and change medications to po. Hbg relatively stable from yesterday at 11.6, therefore GI planning to perform an outpatient EGD and colonoscopy 6-8 weeks after finishing his course of abx. Complete course of abx for diverticulitis No plans for surgery this admission. We can plan to see patient in the surgery clinic after his scopes with GI. Subjective Patient states that he is feeling somewhat better than yesterday. Nausea is much improved, but he still has some left sided abdominal pain. He denies any further bouts of emesis and has not had a BM since yesterday AM. Diet was advanced to low fiber for lunch of which he tolerated. He ate some baked chicken and mashed potatoes. Patient states GI is planning to perform an EGD and Colonoscopy as an outpatient in 6-8 weeks. Physical Exam Constitutional: well developed and well nourished; no acute distress Gastrointestinal (Abdomen): Percussion/Palpation: + abdomen tender (mildly tender to palpation of LLQ) and abdomen soft Results & Data Vital Signs (Past 12 Hours) Vital Signs Temp Pulse Pulse Resp BP Pulse Ox 11/02/18 12:00 36.7 C 57 L 18 165/89 H 99 11/02/18 09:00 54 L 11/02/18 07:08 36.8 C 64 20 144/78 H 98 11/02/18 04:00 36.7 C 58 L 20 112/71 97 PG Care Time/CCT Total # of Minutes Spent Total Time Spent with Patient: Total time spent is greater than 50% in coordination of care (as documented) at patient's floor/unit and/or counseling patient:
--- NOTE | 2018-11-02 14:16 | Hospitalist Progress Note ---
Date of Service November 02, 2018 Assessment & Plan (1) Hematemesis: (2) Rectal bleeding: Recurrent diverticulitis, hematemesis GI bleeding H/O PUD S/P gastric ulcer clipping in 2018 Last EGD 03/2018 showed nonbleeding erosive gastropathy Denies Aspirin, NSAIDs use CT ABD: No evidence of bowel obstruction. No evidence of free air Colonic diverticulosis. Evidence of very subtle sigmoid diverticulitis. Hb drop partly hemodilutional Continue PPI BID Monitor CBC Continue IV Abx to complete 10 day course Transfuse PRBCs PRN Tolerated diet Planned for EGD/Colonoscopy as outpatient unless recurrence of GI bleed Appreciate GI/Surgery Input No plan for any surgery Pain is controlled Needs follow up with GI/Surgery as outpatient (3) Diverticulitis: Management as above Check stool for C diff if recurrence of diarrhea (4) HTN (hypertension): BP stable Continue lisinopril, atenolol (5) GERD (gastroesophageal reflux disease): On IV PPI (6) DVT prophylaxis: SCDs Re: GI bleeding Code Status Full Code Disposition Expect to discharge home when stable Subjective Patient is seen and examined at bedside Doing much better today Hb is stable No witnessed hematemesis Tolerating diet Pain is controlled No other complaints Denies any chest pain, shortness of breath, dizziness, nausea/vomiting Review of Systems Review of Systems: All systems reviewed & are unremarkable except as noted in HPI & below Physical Exam Physical Exam: Physical Exam: Vitals signs as noted above General Appearance:Moderately built and nourished, no apparent distress Head: normocephalic, Atraumatic Eyes: normal inspection, EOMI Neck: supple, Trachea midline Respiratory/Chest: Normal breath sounds, CTA Cardiovascular: S1, S2, No murmur Abdomen/GI:Soft, mild LLQ tender, Bowel sounds present Extremities/Musculoskelatal:normal inspection, no edema 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:AAOX3, grossly no focal neurological deficits Skin: normal color, warm Results & Data Vital Signs (Past 12 Hours) Vital Signs Temp Pulse Pulse Resp BP Pulse Ox 11/02/18 12:00 36.7 C 57 L 18 165/89 H 99 11/02/18 09:00 54 L 11/02/18 07:08 36.8 C 64 20 144/78 H 98 11/02/18 04:00 36.7 C 58 L 20 112/71 97 Laboratory Results Short CBC 11/02/18 Range/Units 06:00 Hgb 11.6 L (14.0-18.0) g/dL Hct 34.3 L (42-52) % (1) Hematemesis Nausea presence: with nausea Qualified Code(s): K92.0 - Hematemesis (2) HTN (hypertension) Hypertension type: unspecified Qualified Code(s): I10 - Essential (primary) hypertension
--- NOTE | 2018-11-02 14:26 | Discharge Summary ---
Date of Service November 02, 2018 Admission HPI Per Admitting Provider 58-year-old male who presents the ED for evaluation of vomiting blood and abdominal pain. Patient was recently admitted to [facility] 10/01 through 10/04 for very similar symptoms. Patient also had findings of diverticulitis on CAT scan at that time. His hemoglobin remained stable during that hospitalization therefore EGD or colonoscopy was not completed. Patient was discharged on a course of Augmentin which he reports he has finished. Patient is scheduled to have an outpatient colonoscopy on 11/17. Patient reports he had been doing well until this morning. He reports he had some mild nausea and feelings of fatigue yesterday. This morning, he reports he had severe nausea and had several episodes of vomiting. He reports noticing specks of bright red blood in the emesis. He also had 2 very loose bowel movements with bright red blood as well. He reports epigastric and left-sided abdominal pain. He did not feel feverish or have chills at home, temperature in the ED is 37.9. Patient denies heavy NSAID use. He denies chest pain shortness of breath. He reports some mild lightheadedness this morning however denies any dizziness or syncopal events. No urinary symptoms. In the ED, Hgb is stable at 14.3. CT ABD/pelvis showing evidence of very subtle sigmoid diverticulitis. There is no leukocytosis. Patient was given IVF, IV ranitidine, IV morphine, IV Unasyn. Admission Exam Per Admitting Provider Physical Exam Constitutional: WD/WN, vitals as above Eyes: PERRL, conjunctivae normal, anicteric sclerae ENMT: external ear and nose normal, oropharynx normal Respiratory: normal respiratory effort, lungs clear to auscultation Cardiovascular: RRR, no murmur, no edema Gastrointestinal (Abdomen): Inspection/Auscultation: + abdomen distended and normal bowel sounds Percussion/Palpation: + abdomen tender (Epigastric, LUQ, LLQ) and abdomen soft; no hepatosplenomegaly Musculoskeletal: no cyanosis or clubbing, extremities motor strength 5/5 Skin: no rashes, warm and dry Neurologic: PERRL, EOMI, accommodation nl, no face palsy, no dysarthria Psychiatric: A+Ox3, euthymic affect Principal Diagnosis Discharge Information Discharge Diagnosis Recurrent diverticulitis, hematemesis GI bleeding Discharge Goals Decrease discomfort,Improve disease control, Improve function Discharge Activity Limitations Resume your previous activity Discharge Data Allergies Allergy/AdvReac Type Severity Reaction Status Date / Time ketorolac Allergy Severe SHORTNESS Verified 10/30/18 15:15 OF BREATH,RASH Consultations 10/30/18 16:38 ED Decision to Admit Stat 10/30/18 18:27 Consult Gastroenterology Routine 11/01/18 08:41 Consult General Surgery Routine Procedures Performed CT ABD: 1. No evidence of bowel obstruction. No evidence of free air 2. Colonic diverticulosis. Evidence of very subtle sigmoid diverticulitis. Ordered Studies 10/30/18 13:54 CT abd pelvis wo con Stat Hospital Course (1) Hematemesis: (2) Rectal bleeding: Recurrent diverticulitis, hematemesis GI bleeding H/O PUD S/P gastric ulcer clipping in 2018 Last EGD 03/2018 showed nonbleeding erosive gastropathy Denies Aspirin, NSAIDs use CT ABD: No evidence of bowel obstruction. No evidence of free air Colonic diverticulosis. Evidence of very subtle sigmoid diverticulitis. Hb drop partly hemodilutional Continue PPI BID Monitor CBC Continue IV Abx to complete 10 day course Transfuse PRBCs PRN Tolerated diet Planned for EGD/Colonoscopy as outpatient unless recurrence of GI bleed Appreciate GI/Surgery Input No plan for any surgery Pain is controlled Needs follow up with GI/Surgery as outpatient (3) Diverticulitis: Management as above Check stool for C diff if recurrence of diarrhea (4) HTN (hypertension): BP stable Continue lisinopril, atenolol (5) GERD (gastroesophageal reflux disease): On IV PPI (6) DVT prophylaxis: SCDs Re: GI bleeding Code Status Full Code Disposition Expect to discharge home when stable Total Time Total Time Spent Total Time Spent (In Minutes): 38 minutes Total Time Includes: Examination of the Patient, Discharge Planning, Medication Reconciliation, Communication With Other Providers and Other Discharge Plan Discharge Items Patient Disposition: Home - Self-Care Reason For Visit: GI BLEED, DIVERTICULITIS Discharge Diagnosis: Recurrent diverticulitis, hematemesis GI bleeding Discharge Goals: Decrease discomfort, Improve disease control and Improve function Activity: Resume your previous activity Exercise/Sports: Gradually increase as tolerated Non-emergency contact: Primary Care Provider, Surgeon and Mining Captain Call non-emergency contact if: you have any medication questions, your symptoms worsen, your pain is not controlled, your pain is worsening, your pain is unusual for you, your pain is concerning for you and you have a fever Follow-up/Referrals: PCP,NO [Primary Care Provider] - Diet: Heart Healthy and Low Fiber Addtl Provider Instructions: Follow up with your Primary Care Physician in 1 week as advised Follow up with your Mining Captain / for outpatient EGD/Colonoscopy in 6-8 weeks Follow up with your Surgeon as recommended by your Surgeon Complete the antibiotic course as prescribed Seek immediate medical attention if your symptoms reoccur or worsen Prescriptions: New ciprofloxacin HCl [Cipro] 500 mg tablet 500 mg PO BID Qty: 14 RF: 0 metronidazole [Flagyl] 500 mg tablet 500 mg PO Q8H 7 Days Qty: 21 RF: 0 Continued lisinopril 20 mg Tablet 20 mg PO QAM RF: 0 atenolol 25 mg Tablet 25 mg PO QAM RF: 0 pantoprazole 40 mg Tablet,Delayed Release (Dr/Ec) 40 mg PO BID RF: 0 oxycodone 5 mg Tablet 5 mg PO Q4H PRN (Reason: Pain) RF: 0 sucralfate [Carafate] 1 gram Tablet 1 g PO ACHS RF: 0 Stand-Alone Forms: [facility] Discharge Orders: Discharge Order (Routine); Ordered 11/02/18 Ordered By: Imtiaz Monroe Admission Data Admit Date/Time: 10/30/18 17:09 Attending Provider: Imtiaz Monroe Admit Provider: Radha Serrato Primary Care Provider: PCP,KELSEY Other Providers: Radha Serrato ; Zachary Barger ; Chepe Davis Service: Telemetry Medical Other Interventions: Discharge Summary Assessment (RN) Last Done: 11/02/18 14:29 Pending Studies at Discharge: No DC Date/Time DO NOT enter until pt leaves facility: 11/02/18 15:00
[2018-11-02] MEDS ORDERED: PANTOprazole 40 MG TAB PO SCH (21:00)
== END 2018-11-02 15:00 | disposition home or self-care (01) | DRG 379 ==
LOC: ED 13:08 → 2W 17:09
DX: Z80.0 Family history of malignant neoplasm of digestive organs; M19.90 Unspecified osteoarthritis, unspecified site; K21.9 Gastro-esophageal reflux disease without esophagitis; K57.33 Diverticulitis of large intestine without perforation or abscess with bleeding; I10 Essential (primary) hypertension; Z82.49 Family history of ischemic heart disease and other diseases of the circulatory system; Z96.659 Presence of unspecified artificial knee joint

== ENCOUNTER 2018-11-27 14:15 | Inpatient (IN) ==
[2018-11-27] MEDS ORDERED: ONDANSETRON INJ 2 MG/ML 2 ML VIAL IV STA (14:39)
[2018-11-27] MEDS ORDERED: FAMOTIDINE 20MG/5ML IV PUSH IV STA (14:42)
[2018-11-27] MEDS ORDERED: PROMETHAZINE HCL 6.25 MG in SODIUM CHLORIDE 0.9% 50 ML IV STA (14:42)
[2018-11-27] MEDS ORDERED: SODIUM CHLORIDE 0.9% 1000ML 1,000 ML IV SCH (14:45)
--- NOTE | 2018-11-27 14:59 | XRay Report ---
XR chest 1V portable CLINICAL HISTORY: 58 years-old Male presenting with Chest Pain. TECHNIQUE: Portable upright AP view of the chest was obtained. COMPARISON: 07/13/2018. FINDINGS: Cardiomediastinal silhouette normal. No focal opacity. No large effusion or pneumothorax. Osseous str uctures normal. Upper abdomen normal. IMPRESSION: 1. No acute cardiopulmonary disease. Electronically signed by: Valeriano Regalado M.D. 11/27/2018 2:58 PM
[2018-11-27] MEDS ORDERED: PROMETHAZINE 6.25 MG/50.25 ML NSS IV ONE (15:11)
[2018-11-27] MEDS: MoRPHine SULFATE 4 MG/ML 1 ML CARP\\VIAL IV PRN ×5 (15:20→18:20)
[2018-11-27 15:28] LABS: Basophils # (auto) 0.02 K/uL (0-0.2); Basophils % (auto) 0.4 %; Eosinophils # (auto) 0.24 K/uL (0-0.5); Eosinophils % (auto) 4.6 %; Hematocrit (blood only) 38.9 % (42-52); Hemoglobin 13.3 g/dL (14.0-18.0); Immature Granulocytes # (auto) 0.01 K/uL (0.00-0.02); Immature Granulocytes % (auto) 0.2 %; Lymphocytes # (auto) 1.24 K/uL (1.2-3.4); Lymphocytes % (auto) 23.7 %; Mean Corpuscular Hgb Conc 34.2 g/dL (32-36); Mean Corpuscular Volume 83.7 fL (80-100); Mean Platelet Volume 9.5 fL (7.4-10.4); Monocytes # (auto) 0.42 K/uL (0.11-0.59); Neutrophils % (auto) 63.1 %; Platelet Count 185 K/uL (130-400); RDW Standard Deviation 42.2 fL (36.4-46.3); Red Blood Count 4.65 M/uL (4.7-6.1); White Blood Count 5.23 K/uL (4.8-10.8)
[2018-11-27 15:39] LABS: INR 1.1 (0.9-1.1); Partial Thromboplastin Time 25.9 Seconds (21.0-31.0); Prothrombin Time 11.2 Seconds (9.0-12.0)
[2018-11-27 15:45] LABS: Alanine Aminotransferase 25 U/L (12-78); Albumin Level 4.2 gm/dl (3.4-5.0); Aspartate Aminotransferase 13 U/L (15-37); BUN Creatinine Ratio 15.7 (10-20); Blood Urea Nitrogen 16 mg/dl (7-18); Calcium 8.8 mg/dl (8.5-10.1); Carbon Dioxide 26 mmol/L (21-32); Chloride 113 mmol/L (98-107); Creatinine Clr Calc Pharmacy 105.2 ml/min; Est GFR (African American) 97.6; Est GFR (Non-African American) 84.2; Glucose 87 mg/dl (70-99); Sodium 144 mmol/L (136-145)
[2018-11-27 15:50] LABS: Albumin Globulin Ratio 1.3 (0.9-2); Alkaline Phosphatase 101 U/L (45-117); Bilirubin,Total 0.3 mg/dl (0.2-1); Globulin 3.2 gm/dl (2.5-4.0); Total Protein 7.4 gm/dl (6.4-8.2); Troponin I < 0.015 ng/ml (0-0.045)
[2018-11-27] MEDS ORDERED: IOVERSOL 100ml IV PRN (16:05)
--- NOTE | 2018-11-27 16:21 | CT Scan Report ---
CT abd pelvis IV con only CLINICAL HISTORY: 58 years-old Male presenting with generalized abdominal pain, known diverticulosis, concern for diverticulitis. TECHNIQUE: Multidetector CT of the abdomen and pelvis was performed after the administration of intra venous contrast. IV contrast: 93 mL of Optiray 320. One or more dose lowering techniques were used co nsistent with the principles of ALARA (as low as reasonably achievable), including automatic exposure control, mA or kV adjustment to individual patient size, and/or use of iterative reconstruction. COMPARISON: 10/30/2018. CT DOSE (mGy.cm): The estimated cumulative dose is 1386.04 mGy.cm. 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 Total right hip arthroplasty. Lung bases: Normal heart size. No pericardial or pleural effusion. No focal infiltrate or nodule at t he lung bases. Liver: Normal morphology. No liver lesion. Patent hepatic vasculature. Biliary: Mild biliary ductal prominence likely a reservoir effect in the post cholecystectomy state. Gallbladder surgically absent. Pancreas: Normal. Spleen: Normal. Splenule noted. Adrenal glands: Normal. Kidneys and ureters: Few cysts noted. Otherwise normal renal parenchyma. No nephrolithiasis or hydron ephrosis. Ureters nondistended. Bladder: Circumferential bladder wall thickening. Pelvic organs: Prostate and seminal vesicles normal. Bowel: Diverticulosis of the proximal to mid sigmoid colon in distal descending colon. Mild wall thic kening. No pericolonic inflammatory change. Diverticulosis also evident in the right colon. Post surg ical changes of appendectomy. No bowel obstruction. Peritoneal cavity: No free fluid or intraperitoneal gas. Lymph nodes: No enlarged lymph nodes in the abdomen or pelvis. Vasculature: Aorta and IVC patent and normal in caliber. Abdominal wall: Normal. Musculoskeletal: Total right hip arthroplasty. IMPRESSION: 1. Diverticulosis without evidence of diverticulitis. Both left and right-sided diverticulosis is pr esent. Wall thickening of the sigmoid colon without pericolonic inflammatory change could suggest cir cular muscle hyperplasia/chronic diverticular disease. Electronically signed by: Valeriano Regalado M.D. 11/27/2018 4:19 PM
--- NOTE | 2018-11-27 17:58 | History & Physical Report ---
Date of Service November 27, 2018 Assessment & Plan (1) Rectal bleeding: This is a 58yo M with a PMH of recurrent diverticulitis, HTN, chronic pain on narcotics and other medical problems listed below who presents from home with hematemesis and rectal bleeding starting this morning. -Endorsing 4 episodes of bright red blood mixed with stool since this morning in setting of chronic diverticulosis, recurrent diverticulitis -Hgb stable at 13.3. No leukocytosis. -CT abdomen pelvis without evidence of diverticulitis. Both left and right-sided diverticulosis is present. Wall thickening of the sigmoid colon without pericolonic inflammatory change could suggest circular muscle hyperpla buffy/chronic diverticular disease -Recently admitted for sigmoid diverticulitis last month. Colonoscopy/EGD scheduled with Dr. Jarrett for Dec 17 -Clear liquids, H&H at 2300, NPO after midnight -Routine GI consult (2) Hematemesis with nausea: Reports 3 episodes of bilious emesis with specks of bright red blood, none since arrival -Has history fo PUD s/p gastric ulcer clipping in 2017 -Hgb stable at 13.3. Monitor H&H -IV protonix 40mg IV BID -Continue Carafate (3) Precordial chest pain: Developed intermittent left sided chest pain today after multiple bouts of emesis -History of recent cardiac cath in July 2018 with widely patent coronary anatomy -EKG is without acute ischemic changes and troponin is normal. CXR without acute cardiopulmonary disease -Repeat troponin at 2300. Monitor on telemetry (4) Chronic pain: Endorses back pain, recent hip replacement -Per PDMP, receives oxycodone 5mg Q4H PRN from provider in [place], [place] -Will prescribe home pain medication (5) HTN (hypertension): Continue atenolol, lisinopril History of Present Illness Chief Complaint: abdominal pain, chest pain Primary Care Provider: NO PCP This is a 58yo M with a PMH of recurrent diverticulitis, HTN, chronic pain on narcotics and other medical problems listed below who presents from home with hematemesis and rectal bleeding starting this morning. Patient woke up this morning he was nauseated and endorses 3 episodes of bilious vomit with specks of bright red blood. Then developed left-sided abdominal pain that wrapped around to his lower back with associated bloody bowel movements. Had one formed bowel movement that was dark brown in color mixed with bright red blood followed by 3 additional episodes of bloody diarrhea. Patient was getting in the shower when he began to feel lightheaded and near syncopal with left-sided heaviness of his chest. States the chest pain radiated up to neck and down left arm and is intermittent and made worse with exertion. Denies any fever, chills, headache, palpitations, shortness of breath, dysuria or lower extremity edema. Was brought in the ED for further evaluation by daughter. In ED, patient was found to be afebrile and hemodynamically stable. Received IV morphine and states abdominal pain has improved to 8/10 and chest pain to 6/10. Lab work reveals a normal wbc count and hemoglobin is at baseline at 13.3. EKG is without acute changes and troponin is normal. CXR without acute cardiopulmonary disease. CT abdomen pelvis without evidence of diverticulitis. Both left and right-sided diverticulosis is present. Wall thickening of the sigmoid colon without pericolonic inflammatory change could suggest circular muscle hyperplasia/chronic diverticular disease. Of note, this is patient's third admission in 3 months for hematemesis and abdominal pain. Allergies Allergy/AdvReac Type Severity Reaction Status Date / Time ketorolac Allergy Severe SHORTNESS Verified 11/27/18 15:04 OF BREATH,RASH Home Medications Home Medications Medication Instructions Recorded Confirmed Type atenolol 25 mg PO QAM 03/16/18 11/27/18 History lisinopril 20 mg PO QAM 03/16/18 11/27/18 History oxycodone 5 mg PO Q4H PRN 03/16/18 11/27/18 History pantoprazole 40 mg PO BID 03/16/18 11/27/18 History sucralfate [Carafate] 1 g PO ACHS 03/17/18 11/27/18 History Past Med/Surg History Medical History Diverticulosis (Chronic) Chronic pain (Chronic) Avascular necrosis of bone of right hip (Chronic) s/p recent replacement at [facility] PUD (peptic ulcer disease) (Resolved) 2018 - gastric ulcer that required clipping GERD (gastroesophageal reflux disease) (Chronic) HTN (hypertension) (Chronic) Osteoarthritis (Chronic) Surgical History History of total right knee replacement (Chronic) H/O vasectomy (Resolved) S/P appendectomy (Resolved) S/P cholecystectomy (Resolved) S/P knee replacement (Resolved) S/P tonsillectomy (Resolved) Family History Father Coronary heart disease T2DM (type 2 diabetes mellitus) Mother Pancreatic cancer Hypertension Social History Preferred Language: Fijian Communication Ability: Effective Chimney [employer] Helper Required: No Beliefs That Will Affect Care: None marital status: Current Living Situation: Other Current Living Situation Comment: Girl friend Other Information That Helps Us Care for You: No Feels Safe at Home: Yes Safety Concerns: Feels Safe At This Time Smoking Status: Never smoker Do You Dip or Chew Tobacco: No ; Second Hand Exposure: Yes (Girlfriend smokes but goes outside. Previous smoked. Mother did too.) ; Tobacco Cessation Education Requested by Patient: No Hx Alcohol Use: No Hx Substance Use: No Review of Systems Review of Systems: At least ten systems reviewed and negative except as noted in the HPI. Physical Exam Physical Exam: General Appearance: WD/WN, vitals as above, NAD, sitting up in bed watching TV, conversing easily Head: normocephalic, atraumatic Eyes: normal inspection, PERRL, conjunctivae normal, anicteric sclerae ENT: external ear and nose normal, oropharynx normal Neck: trachea midline, no thyromegaly normal visual inspection Respiratory: normal respiratory effort, lungs clear to auscultation, no wheeze, rales, rhonchi. Normal insp/exp effort, no accessory muscle use Cardiovascular: regular rate, rhythm, no murmur, normal peripheral pulses. Vessels: no JVD Chest: no pain on palpation, normal inspection of chest Abdomen/GI: normal bowel sounds, soft, epigastrium and LLQ tender to palpation,no guarding, no hepatosplenomegaly Extremities/Musculoskelatal: no cyanosis or clubbing, extremities motor strength 5/5 Neurologic: PERRL, EOMI, accommodation nl, no face palsy, no dysarthria CN's II-XI intact bilaterally and moves all extremities Psychiatric: A+Ox3, euthymic affect Skin: no rashes, normal color, warm/dry Results & Data Vital Signs (Past 12 Hours) Vital Signs Temp Pulse Pulse Resp BP BP Pulse Ox 11/27/18 16:34 73 18 157/94 H 99 11/27/18 14:39 96 11/27/18 14:20 37.4 C 78 20 161/101 H 97 Laboratory Results Short CBC 11/27/18 11/27/18 11/27/18 Range/Units 15:19 15:19 15:19 WBC 5.23 (4.8-10.8) K/uL RBC 4.65 L (4.7-6.1) M/uL Hgb 13.3 L (14.0-18.0) g/dL Hct 38.9 L (42-52) % MCV 83.7 (80-100) fL MCH 28.6 (25-34) pg MCHC 34.2 (32-36) g/dL RDW Std Deviation 42.2 (36.4-46.3) fL RDW Coeff of Kim 14.0 (11.5-14.5) % Plt Count 185 (130-400) K/uL MPV 9.5 (7.4-10.4) fL Immature Gran % (Auto) 0.2 % Neut % (Auto) 63.1 % Lymph % (Auto) 23.7 % Pine % (Auto) 8.0 % Eos % (Auto) 4.6 % Baso % (Auto) 0.4 % Immature Gran # (Auto) 0.01 (0.00-0.02) K/uL Neut # (Auto) 3.30 (1.4-6.5) K/uL Lymph # (Auto) 1.24 (1.2-3.4) K/uL Pine # (Auto) 0.42 (0.11-0.59) K/uL Eos # (Auto) 0.24 (0-0.5) K/uL Baso # (Auto) 0.02 (0-0.2) K/uL PT (9.0-12.0) Seconds INR (0.9-1.1) APTT (21.0-31.0) Seconds PTT Ratio Sodium 144 (136-145) mmol/L Potassium 4.0 (3.5-5.1) mmol/L Chloride 113 H (98-107) mmol/L Carbon Dioxide 26 (21-32) mmol/L Anion Gap 5.0 (3-11) BUN 16 (7-18) mg/dl Creatinine 0.99 (0.6-1.4) mg/dl Est Cr Clr Drug Dosing 105.2 ml/min Est GFR ( Amer) 97.6 Est GFR (Non-Af Amer) 84.2 BUN/Creatinine Ratio 15.7 (10-20) Glucose 87 (70-99) mg/dl Calcium 8.8 (8.5-10.1) mg/dl Magnesium 2.0 (1.8-2.4) mg/dl Total Bilirubin 0.3 (0.2-1) mg/dl AST 13 L (15-37) U/L ALT 25 (12-78) U/L Alkaline Phosphatase 101 (45-117) U/L Troponin I < 0.015 (0-0.045) ng/ml Total Protein 7.4 (6.4-8.2) gm/dl Albumin 4.2 (3.4-5.0) gm/dl Globulin 3.2 (2.5-4.0) gm/dl Albumin/Globulin Ratio 1.3 (0.9-2) Lipase 149 (73-393) U/L Blood Type O Negative Antibody Screen NEGATIVE 11/27/18 Range/Units 15:19 WBC (4.8-10.8) K/uL RBC (4.7-6.1) M/uL Hgb (14.0-18.0) g/dL Hct (42-52) % MCV (80-100) fL MCH (25-34) pg MCHC (32-36) g/dL RDW Std Deviation (36.4-46.3) fL RDW Coeff of Kim (11.5-14.5) % Plt Count (130-400) K/uL MPV (7.4-10.4) fL Immature Gran % (Auto) % Neut % (Auto) % Lymph % (Auto) % Pine % (Auto) % Eos % (Auto) % Baso % (Auto) % Immature Gran # (Auto) (0.00-0.02) K/uL Neut # (Auto) (1.4-6.5) K/uL Lymph # (Auto) (1.2-3.4) K/uL Pine # (Auto) (0.11-0.59) K/uL Eos # (Auto) (0-0.5) K/uL Baso # (Auto) (0-0.2) K/uL PT 11.2 (9.0-12.0) Seconds INR 1.1 (0.9-1.1) APTT 25.9 (21.0-31.0) Seconds PTT Ratio 1.0 Sodium (136-145) mmol/L Potassium (3.5-5.1) mmol/L Chloride (98-107) mmol/L Carbon Dioxide (21-32) mmol/L Anion Gap (3-11) BUN (7-18) mg/dl Creatinine (0.6-1.4) mg/dl Est Cr Clr Drug Dosing ml/min Est GFR ( Amer) Est GFR (Non-Af Amer) BUN/Creatinine Ratio (10-20) Glucose (70-99) mg/dl Calcium (8.5-10.1) mg/dl Magnesium (1.8-2.4) mg/dl Total Bilirubin (0.2-1) mg/dl AST (15-37) U/L ALT (12-78) U/L Alkaline Phosphatase (45-117) U/L Troponin I (0-0.045) ng/ml Total Protein (6.4-8.2) gm/dl Albumin (3.4-5.0) gm/dl Globulin (2.5-4.0) gm/dl Albumin/Globulin Ratio (0.9-2) Lipase (73-393) U/L Blood Type Antibody Screen BMP 11/27/18 15:19 Sodium 144 Potassium 4.0 Chloride 113 H Carbon Dioxide 26 BUN 16 Creatinine 0.99 Glucose 87 Calcium 8.8 Cardiac Enzymes 11/27/18 Range/Units 15:19 Troponin I < 0.015 (0-0.045) ng/ml Liver Function 11/27/18 Range/Units 15:19 Total Bilirubin 0.3 (0.2-1) mg/dl AST 13 L (15-37) U/L ALT 25 (12-78) U/L Alkaline Phosphatase 101 (45-117) U/L Albumin 4.2 (3.4-5.0) gm/dl Diagnostic Findings CXR: IMPRESSION: 1. No acute cardiopulmonary disease. CT abd/pelvis: IMPRESSION: 1. Diverticulosis without evidence of diverticulitis. Both left and right-sided diverticulosis is present. Wall thickening of the sigmoid colon without pericolonic inflammatory change could suggest circular muscle hyperplasia/chronic diverticular disease. ECG Rhythm: sinus rhythm Findings: + PAC Change: no significant change Code Status & VTE Plan VTE Prophylaxis Plan VTE Prophylaxis will be ordered: No Supervising Physician Co-Signing Physician Notes HISTORY: Record reviewed. Patient interviewed and examined. Care coordinated with Jenae Wright PA-C. Please refer to her documentation for patient's history. Briefly, 58-year-old male with history of hypertension, diverticulosis, peptic ulcer disease, chronic pain. Presented to ED with nausea, vomiting, hematemesis, abdominal pain, rectal bleeding, and chest pain. He does not use any aspirin or nonsteroidal anti-inflammatory drugs. He does not drink alcoholic beverages. Chest pain described as midsternal pain that occurred after nausea and vomiting. Patient had a cardiac catheterization in July 2018 that did not show any significant coronary artery disease. EXAM: General- no distress Lungs- clear to auscultation; no respiratory distress Cardiovascular- RRR; no murmur; no gallop; no JVD; no pretibial edema Abdomen- + bowel sounds, soft, mild LLQ and right-sided tenderness. Extremities- no cyanosis; no calf tenderness Neuro- alert, oriented Skin- warm & dry DATA: Hemoglobin 13.3. PT 11.2, INR 1.1, PTT 25.9. Normal electrolytes, BUN 16, creatinine 0.99, random glucose 87. LFTs and lipase were normal. Troponin less than 0.015. Other lab studies as noted. Chest x-ray reviewed by the undersigned and formally interpreted by Radiology; Normal cardiac silhouette, no infiltrates, effusions, CHF. CT of the abdomen and pelvis interpreted by Radiology: Left and right-sided diverticulosis without evidence of diverticulitis; wall thickening of the sigmoid colon without inflammatory changes noted. EKG performed at 1420 reviewed and demonstrated normal sinus rhythm at 74 / min [place], no acute changes. ASSESSMENT AND PLAN: Reported hematemesis and rectal bleeding. Prior history of peptic ulcer disease, does not ingest any GI irritants such as aspirin, nonsteroidal anti-inflammatory drugs, or alcohol at this time. History of diverticulosis with apparent diverticular bleed. CT today shows diverticulosis of descending and sigmoid colon, no apparent diverticulitis. Wall thickening of sigmoid colon without apparent inflammatory changes was noted. H&H stable. Hemodynamically stable. PPI. Monitor H&H. Consult GI. Scheduled for EGD and colonoscopy in December; will defer to GI whether or not study should be performed sooner. Patient complains of chest pain associated nausea and vomiting. Troponin normal. No acute EKG changes. Cardiac cath in July 2018 did not show any significant coronary artery disease. Acute coronary syndrome very unlikely. Low clinical suspicion for pulmonary embolism. Chest discomfort most likely secondary to nausea and vomiting. Patient has chronic pain. [place] Drug Monitoring Program database reviewed. Patient has been prescribed oxycodone on a monthly basis. Continue usual dose of oxycodone. Low risk for VTE per IMPROVE risk assessment model. VTE prophylaxis not indicated. Ambulate. Please refer to TIM Wright's documentation for discussion of other issues. (1) HTN (hypertension) Hypertension type: unspecified Qualified Code(s): I10 - Essential (primary) hypertension
--- NOTE | 2018-11-27 18:18 | Emergency Department Note ---
Entered by Renee Velasquez acting as a scribe for Sedrick Flores MD History of Present Illness General Chief complaint: Chest Pain Stated complaint: CHEST PAIN,SOB,DIZZINESS,RECTAL BLEEDING AND VOMIT Time Seen by Provider: 11/27/18 14:31 Source: patient Mode of arrival: ambulatory History of Present Illness Provider complaint: chest pain Onset (ago): hour(s) 1 Location: chest Pain Consistency: + other (episode ) Maximum Pain Intensity: 8 Quality: + other ("tightness") Exacerbated By: + movement Associated symptoms: + nausea/vomiting and + other (lower back pain, hematochezia, blood in vomit, light-headed) Treatments prior to arrival: other (Carafate ) The patient is a 58 year old male with a PMHX of diverticulitis, GERD, and peptic ulcer disease, who presents to the ED with complaints of an episode of c hest pain that began about 1 hour ago. The patient states that he felt an 8/10 chest tightness and lower back pain. He states that he noticed bloody stool about 6 hours ago. The patient states that following the bloody stool he began throwing up with blood in the vomit. He states that he felt extremely nauseous and light-headed. The patient states that his symptoms are exacerbated by standing or moving around. The patient states that he has a history of diverticulitis. He states that he has had it about 10 times in four years, and 3 episodes of it this year alone. The patient states that he has a future scope scheduled in [address] Jarrett to decide if he needs surgery to remove the area causing his diverticulitis. He states that he took Carafate this morning for his symptoms but found no relief. The patient states he had a stress test about 1 year ago and believes the results were normal. The patient states that his PCP is Dr. Eboni Nichole Highland TIM. Home Medications Home Medications Medication Instructions Recorded Confirmed Type atenolol 25 mg PO QAM 03/16/18 11/27/18 History lisinopril 20 mg PO QAM 03/16/18 11/27/18 History oxycodone 5 mg PO Q4H PRN 03/16/18 11/27/18 History pantoprazole 40 mg PO BID 03/16/18 11/27/18 History sucralfate [Carafate] 1 g PO ACHS 03/17/18 11/27/18 History Allergies Allergy/AdvReac Type Severity Reaction Status Date / Time ketorolac Allergy Severe SHORTNESS Verified 11/27/18 15:04 OF BREATH,RASH Past Med/Surg History Medical History Diverticulosis (Chronic) Chronic pain (Chronic) Avascular necrosis of bone of right hip (Chronic) s/p recent replacement at [facility], [place], operated by [facility] PUD (peptic ulcer disease) (Resolved) 2018 - gastric ulcer that required clipping GERD (gastroesophageal reflux disease) (Chronic) HTN (hypertension) (Chronic) Osteoarthritis (Chronic) Surgical History History of total right knee replacement (Chronic) H/O vasectomy (Resolved) S/P appendectomy (Resolved) S/P cholecystectomy (Resolved) S/P knee replacement (Resolved) S/P tonsillectomy (Resolved) Family History Father Coronary heart disease T2DM (type 2 diabetes mellitus) Mother Pancreatic cancer Hypertension Social History Preferred Language: Icelandic Communication Ability: Effective Home Care Physical Therapist Required: No Beliefs That Will Affect Care: None marital status: Current Living Situation: Other Current Living Situation Comment: Girl friend Other Information That Helps Us Care for You: No Feels Safe at Home: Yes Safety Concerns: Feels Safe At This Time Smoking Status: Never smoker Do You Dip or Chew Tobacco: No ; Second Hand Exposure: Yes (Girlfriend smokes but goes outside. Previous smoked. Mother did too.) ; Tobacco Cessation Education Requested by Patient: No Hx Alcohol Use: No Hx Substance Use: No Review of Systems See HPI for pertinent positives & negatives. and A total of 10 systems reviewed and were otherwise negative Physical Exam Vital Signs Vital Signs - 24 hr 11/27/18 14:20 11/27/18 14:39 11/27/18 16:34 Temperature 37.4 C Temperature Source Oral Sepsis Recent Fever Within 48 Hours No Sepsis New/Unexplained Change in Mental Status No Sepsis Action Taken by Nursing No Action Required Pulse Rate 78 Pulse Rate [Apical] 73 Pulse Rhythm Regular Pulse Strength Normal Respiratory Rate 20 18 Respiratory Effort / Characteristics Non-Labored Spontaneous Respiratory Depth Normal Respiratory Pattern Regular Blood Pressure 161/101 H Blood Pressure [Right Arm] 157/94 H Blood Pressure Mean 121 Blood Pressure Mean [Right Arm] 115 Blood Pressure Position Lying Pulse Oximetry 97 96 99 Oxygen Delivery Method Room Air Room Air Room Air GENERAL: Patient is in no acute distress. HEENT: No acute trauma, normocephalic atraumatic, mucous membranes moist, no nasal congestion, no scleral icterus. NECK: No stridor, no adenopathy, no meningismus, trachea is midline. LUNGS: Clear to auscultation bilaterally, no wheeze, no rhonchi, breath sounds equal. HEART: Without murmurs gallops or rubs, regular rate and rhythm. CHEST: Non-tender chest wall. ABDOMEN: Soft, mildly tender in the epigastrium, moderately tender in the LLQ, bowel sounds positive, no hernias, no peritonitis. EXTREMITIES: No cyanosis or edema, full range of motion of all the joints without pain or difficulty, no signs for acute trauma. NEUROLOGIC: Oriented x 3, no acute motor or sensory deficits, no focal weakness. SKIN: No rash, no jaundice, no diaphoresis. Course 1442: Past medical records reviewed. The patient was evaluated in room A10. A complete history and physical exam was performed. 1638: I reevaluated the patient at this time and he stated that he is resting comfortably. I discussed the test results and treatment plan with the patient. I informed the patient that I would like him to be evaluated for further management. He verbally agreed and understood. 1648: I discussed the patient's case with Jenae Wright PA-C. She informed me that [facility] Cerv[facility] Hospitalist, agreed to evaluate the patient for further management. 1700: I reevaluated the patient at this time and he stated that he is feeling better. I discussed the treatment plan with the patient. He verbally agreed and understood. Consultations Consultation #1: I discussed the patient's case with Jenae Wright PA-C. She informed me that [facility] Cervantes agreed to evaluate the patient for [facility] management. Time: 16:48 Administered Medications Pantoprazole Sodium 40 mg/ (Syringe) 10 mls @ 5 mls/min IV BID@0900,2100 VELIA Stop: 12/27/18 20:59 Last Admin: 11/27/18 20:28 Dose: 5 mls/min Documented by: [id number] Ioversol (Optiray 320 100ml) 93 ml IV ONCE PRN PRN Reason: Interaction Checking Stop: 12/01/18 16:04 Last Admin: 11/27/18 16:06 Dose: 93 ml Documented by: [id number] Ondansetron HCl (Zofran) 4 mg IV Q6H PRN PRN Reason: Nausea Stop: 12/27/18 18:50 Last Admin: 11/27/18 19:20 Dose: 4 mg Documented by: [id number] Oxycodone HCl (Roxicodone Immediate Rel) 5 mg PO Q4H PRN PRN Reason: Pain Stop: 12/11/18 18:50 Last Admin: 11/27/18 19:19 Dose: 5 mg Documented by: [id number] Sucralfate (Carafate Tab) 1 gm PO ACHS VELIA Stop: 12/27/18 20:59 Last Admin: 11/27/18 20:28 Dose: 1 gm Documented by: [id number] Discontinued Medications Famotidine (Pepcid 20mg Iv Push) 20 mg IV ONE STA Stop: 11/27/18 14:43 Last Admin: 11/27/18 15:20 Dose: 20 mg Documented by: [id number] Sodium Chloride (Nss 1000ml) 1,000 mls @ 999 mls/hr IV .Q1H1M VELIA Stop: 11/27/18 15:45 Last Infusion: 11/27/18 16:58 Dose: 0 mls/hr Documented by: [id number] Admin: 11/27/18 15:20 Dose: 999 mls/hr Documented by: [id number] Promethazine HCl 6.25 mg/ (Sodium Chloride) 50.25 mls @ 201 mls/hr IV NOW STA Stop: 11/27/18 14:56 Last Infusion: 11/27/18 16:16 Dose: 0 mls/hr Documented by: [id number] Admin: 11/27/18 15:21 Dose: 201 mls/hr Documented by: [id number] Morphine Sulfate (Morphine Sulfate) 4 mg IV Q30M PRN PRN Reason: Pain Stop: 12/11/18 14:38 Last Admin: 11/27/18 18:20 Dose: 4 mg Documented by: [id number] Admin: 11/27/18 17:19 Dose: 4 mg Documented by: [id number] Admin: 11/27/18 16:42 Dose: 4 mg Documented by: [id number] Admin: 11/27/18 15:57 Dose: 4 mg Documented by: [id number] Admin: 11/27/18 15:20 Dose: 4 mg Documented by: [id number] Ondansetron HCl (Zofran) 4 mg IV NOW STA Stop: 11/27/18 14:40 Last Admin: 11/27/18 15:20 Dose: 4 mg Documented by: [id number] Promethazine HCl (Phenergan) Confirm Administered Dose 6.25 mg IV .STK-MED ONE Stop: 11/27/18 15:12 Last Admin: 11/27/18 15:20 Dose: 6.25 mg Documented by: [id number] Medical Decision Making Differential Diagnosis Differential diagnoses include but are not limited to [place], angina, anemia, diverticulitis, lower GI bleed, pancreatitis, pneumonia, pneumothorax, gastritis, anemia. Medical Records Attestation: I reviewed the patient's medical records. Home Medications Current Medication List: was personally reviewed by me Laboratory Data Attestation: I reviewed the patient's lab results. Result diagrams: 11/27/18 15:19 11/27/18 15:19 Lab Results 11/27/18 11/27/18 11/27/18 Range/Units 15:19 15:19 15:19 WBC 5.23 (4.8-10.8) K/uL RBC 4.65 L (4.7-6.1) M/uL Hgb 13.3 L (14.0-18.0) g/dL Hct 38.9 L (42-52) % MCV 83.7 (80-100) fL MCH 28.6 (25-34) pg MCHC 34.2 (32-36) g/dL RDW Std Deviation 42.2 (36.4-46.3) fL RDW Coeff of Kim 14.0 (11.5-14.5) % Plt Count 185 (130-400) K/uL MPV 9.5 (7.4-10.4) fL Immature Gran % (Auto) 0.2 % Neut % (Auto) 63.1 % Lymph % (Auto) 23.7 % Prairie % (Auto) 8.0 % Eos % (Auto) 4.6 % Baso % (Auto) 0.4 % Immature Gran # (Auto) 0.01 (0.00-0.02) K/uL Neut # (Auto) 3.30 (1.4-6.5) K/uL Lymph # (Auto) 1.24 (1.2-3.4) K/uL Prairie # (Auto) 0.42 (0.11-0.59) K/uL Eos # (Auto) 0.24 (0-0.5) K/uL Baso # (Auto) 0.02 (0-0.2) K/uL PT (9.0-12.0) Seconds INR (0.9-1.1) APTT (21.0-31.0) Seconds PTT Ratio Sodium 144 (136-145) mmol/L Potassium 4.0 (3.5-5.1) mmol/L Chloride 113 H (98-107) mmol/L Carbon Dioxide 26 (21-32) mmol/L Anion Gap 5.0 (3-11) BUN 16 (7-18) mg/dl Creatinine 0.99 (0.6-1.4) mg/dl Est Cr Clr Drug Dosing 105.2 ml/min Est GFR ( Amer) 97.6 Est GFR (Non-Af Amer) 84.2 BUN/Creatinine Ratio 15.7 (10-20) Glucose 87 (70-99) mg/dl Calcium 8.8 (8.5-10.1) mg/dl Magnesium 2.0 (1.8-2.4) mg/dl Total Bilirubin 0.3 (0.2-1) mg/dl AST 13 L (15-37) U/L ALT 25 (12-78) U/L Alkaline Phosphatase 101 (45-117) U/L Troponin I < 0.015 (0-0.045) ng/ml Total Protein 7.4 (6.4-8.2) gm/dl Albumin 4.2 (3.4-5.0) gm/dl Globulin 3.2 (2.5-4.0) gm/dl Albumin/Globulin Ratio 1.3 (0.9-2) Lipase 149 (73-393) U/L Blood Type O Negative Antibody Screen NEGATIVE 11/27/18 Range/Units 15:19 WBC (4.8-10.8) K/uL RBC (4.7-6.1) M/uL Hgb (14.0-18.0) g/dL Hct (42-52) % MCV (80-100) fL MCH (25-34) pg MCHC (32-36) g/dL RDW Std Deviation (36.4-46.3) fL RDW Coeff of Kim (11.5-14.5) % Plt Count (130-400) K/uL MPV (7.4-10.4) fL Immature Gran % (Auto) % Neut % (Auto) % Lymph % (Auto) % Prairie % (Auto) % Eos % (Auto) % Baso % (Auto) % Immature Gran # (Auto) (0.00-0.02) K/uL Neut # (Auto) (1.4-6.5) K/uL Lymph # (Auto) (1.2-3.4) K/uL Prairie # (Auto) (0.11-0.59) K/uL Eos # (Auto) (0-0.5) K/uL Baso # (Auto) (0-0.2) K/uL PT 11.2 (9.0-12.0) Seconds INR 1.1 (0.9-1.1) APTT 25.9 (21.0-31.0) Seconds PTT Ratio 1.0 Sodium (136-145) mmol/L Potassium (3.5-5.1) mmol/L Chloride (98-107) mmol/L Carbon Dioxide (21-32) mmol/L Anion Gap (3-11) BUN (7-18) mg/dl Creatinine (0.6-1.4) mg/dl Est Cr Clr Drug Dosing ml/min Est GFR ( Amer) Est GFR (Non-Af Amer) BUN/Creatinine Ratio (10-20) Glucose (70-99) mg/dl Calcium (8.5-10.1) mg/dl Magnesium (1.8-2.4) mg/dl Total Bilirubin (0.2-1) mg/dl AST (15-37) U/L ALT (12-78) U/L Alkaline Phosphatase (45-117) U/L Troponin I (0-0.045) ng/ml Total Protein (6.4-8.2) gm/dl Albumin (3.4-5.0) gm/dl Globulin (2.5-4.0) gm/dl Albumin/Globulin Ratio (0.9-2) Lipase (73-393) U/L Blood Type Antibody Screen Imaging Data Radiologist's Impression: Radiology results as stated below per my review and the radiologist's interpretation: XR chest 1V portable CLINICAL HISTORY: 58 years-old Male presenting with Chest Pain. TECHNIQUE: Portable upright AP view of the chest was obtained. COMPARISON: 07/13/2018. FINDINGS: Cardiomediastinal silhouette normal. No focal opacity. No large effusion or pneumothorax. Osseous structures normal. Upper abdomen normal. IMPRESSION: 1. No acute cardiopulmonary disease. Electronically signed by: Valeriano Regalado M.D. 11/27/2018 2:[address] abd pelvis IV con only CLINICAL HISTORY: 58 years-old Male presenting with generalized abdominal pain, known diverticulosis, concern for diverticulitis. TECHNIQUE: Multidetector CT of the abdomen and pelvis was performed after the administration of intravenous contrast. IV contrast: 93 mL of Optiray 320. One or more dose lowering techniques were used consistent with the principles of ALARA (as low as reasonably achievable), including automatic exposure control, mA or kV adjustment to individual patient size, and/or use of iterative reconstruction. COMPARISON: 10/30/2018. CT DOSE (mGy.cm): The estimated cumulative dose is 1386.04 mGy.cm. FINDINGS: Route Delivery Manager topogram: Cholecystectomy clips. Total right hip arthroplasty. Lung bases: Normal heart size. No pericardial or pleural effusion. No focal infiltrate or nodule at the lung bases. Liver: Normal morphology. No liver lesion. Patent hepatic vasculature. Biliary: Mild biliary ductal prominence likely a reservoir effect in the post cholecystectomy state. Gallbladder surgically absent. Pancreas: Normal. Spleen: Normal. Splenule noted. Adrenal glands: Normal. Kidneys and ureters: Few cysts noted. Otherwise normal renal parenchyma. No nephrolithiasis or hydronephrosis. Ureters nondistended. Bladder: Circumferential bladder wall thickening. Pelvic organs: Prostate and seminal vesicles normal. Bowel: Diverticulosis of the proximal to mid sigmoid colon in distal descending colon. Mild wall thickening. No pericolonic inflammatory change. Diverticulosis also evident in the right colon. Post surgical changes of appendectomy. No bowel obstruction. Peritoneal cavity: No free fluid or intraperitoneal gas. Lymph nodes: No enlarged lymph nodes in the abdomen or pelvis. Vasculature: Aorta and IVC patent and normal in caliber. Abdominal wall: Normal. Musculoskeletal: Total right hip arthroplasty. IMPRESSION: 1. Diverticulosis without evidence of diverticulitis. Both left and right-sided diverticulosis is present. Wall thickening of the sigmoid colon without pericolonic inflammatory change could suggest circular muscle hyperplasia/chronic diverticular disease. Electronically signed by: Valeriano Regalado M.D. 11/27/2018 4:19 PM ECG Data Attestation: I personally reviewed and interpreted this ECG as follows: Indication: chest pain Rate (beats per minute): 74 Rhythm: sinus rhythm Findings: + other (QTc is 412) and + PAC; no ST elevation and no acute ischemic change Blood Pressure Blood Pressure Findings: Elevated blood pressure Blood Pressure Disposition: further management by hospitalist MARVIN Narrative There is no leukocytosis. The patient has a mild anemia with a hemoglobin of 13. There is a normal platelet count. No coagulopathy. No significant electrolyte abnormality or kidney failure. There is no concerning liver enzyme elevation. No evidence for pancreatitis. Blood type was O-. Chest film did not show pneumonia, free air or CHF. EKG showed a sinus rhythm, no acute ischemia. Cardiac enzyme testing x1 was not consistent with acute cardiac injury. Abdominal and pelvis CT showed diverticulosis, there was some colonic inflammation, no true diverticulitis. The patient received IV morphine for pain, IV Zofran for nausea, IV Phenergan for nausea. He received IV saline. He was given a dose of IV Pepcid. The patient is resting fairly comfortably. His pain is improved since the morphine. I do think a hospital stay is warranted. He will need his hemoglobin trended. GI he may need to be involved. I do suspect the GI bleeding is from a diverticular source. The reason for his exertional chest pain and dyspnea is not clear, further work-up is warranted. Impression & Plan Precordial chest pain, SOB (shortness of breath), Diffuse abdominal pain, GI bleed Discharge Plan Visit Data *Final* Discharge Date/Time: 11/27/18 18:28 Chief Complaint: Chest Pain Stated Complaint: CHEST PAIN,SOB,DIZZINESS,RECTAL BLEEDING AND VOMIT ED Provider: Sedrick Flores Discharge Problem: Precordial chest pain, SOB (shortness of breath), Diffuse abdominal pain, GI bleed Patient Disposition: Admitted As Inpatient Discharge Instructions Interventions: ED Discharge Assessment Last Done: 11/27/18 18:28 The scribe's documentation has been prepared under my direction and personally reviewed by me in its entirety. I confirm that the note above accurately reflects all work, treatment, procedures, and medical decision making performed by me.
[2018-11-27] MEDS ORDERED: ACETAMINOPHEN 325 MG TAB PO PRN (18:51)
[2018-11-27] MEDS: OXYCODONE HCL IR 5 MG TAB (IMMEDIATE RELEASE) PO PRN ×2 (19:19→23:09)
[2018-11-27] MEDS: ONDANSETRON INJ 2 MG/ML 2 ML VIAL IV PRN (19:20)
[2018-11-27] MEDS: PANTOprazole 40 MG in SYRINGE 0 ML IV SCH (20:28)
[2018-11-27] MEDS: SUCRALFATE 1 GM TAB PO SCH (20:28)
[2018-11-27] MEDS: TRAMADOL HCL 50 MG TABLET PO PRN (21:50)
[2018-11-27 23:15] LABS: Hematocrit (blood only) 36.8 % (42-52); Hemoglobin 12.4 g/dL (14.0-18.0)
[2018-11-28] MEDS ORDERED: ACETAMINOPHEN 65 ML IV PRN (01:00)
[2018-11-28] MEDS: TRAMADOL HCL 50 MG TABLET PO PRN ×3 (01:31→19:47)
[2018-11-28] MEDS: OXYCODONE HCL IR 5 MG TAB (IMMEDIATE RELEASE) PO PRN ×4 (04:08→20:34)
[2018-11-28 06:46] LABS: Hematocrit (blood only) 35.8 % (42-52); Mean Corpuscular Hgb Conc 33.5 g/dL (32-36); Mean Corpuscular Volume 84.6 fL (80-100); Mean Platelet Volume 9.4 fL (7.4-10.4); Platelet Count 160 K/uL (130-400); RDW Coefficient of Variation 14.4 % (11.5-14.5); RDW Standard Deviation 44.7 fL (36.4-46.3); Red Blood Count 4.23 M/uL (4.7-6.1); White Blood Count 4.75 K/uL (4.8-10.8)
[2018-11-28 07:17] LABS: BUN Creatinine Ratio 15.7 (10-20); Creatinine Clr Calc Pharmacy 107.5 ml/min; Est GFR (African American) 105.2; Est GFR (Non-African American) 90.8; Potassium 3.9 mmol/L (3.5-5.1)
[2018-11-28] MEDS: ONDANSETRON INJ 2 MG/ML 2 ML VIAL IV PRN ×2 (07:43→19:52)
[2018-11-28] MEDS: SUCRALFATE 1 GM TAB PO SCH ×4 (07:43→19:47)
[2018-11-28] MEDS: PANTOprazole 40 MG in SYRINGE 0 ML IV SCH ×2 (07:47→19:47)
[2018-11-28] MEDS: ATENOLOL 25 MG TABLET PO SCH (07:48)
[2018-11-28] MEDS: LISINOPRIL 20 MG TAB PO SCH (07:48)
--- NOTE | 2018-11-28 14:10 | Gastrointestinal Consultation ---
Date of Consultation November 28, 2018 Assessment & Plan (1) Hematemesis with nausea: Continue twice daily PPI therapy now Clear liquid diet today NPO after midnight EGD in AM with Carmelita HOLLAND (2) Diverticulosis: Consider repeat consultation with Surgery, as patient has had multiple episodes of diverticulitis in the past 6 months, and at least [address]. Timing of colonoscopy to be determined by primary GI team, as Carmelita will resume care tomorrow Clear liquid diet today (3) Rectal bleeding: History of Present Illness Reason for Consultation: Hematemesis and Recurrent diverticulitis Attending Physician: Imtiaz Monroe MD History of Present Illness Patrice Cr presented to the ER yesterday, with complaints of hematemesis, rectal bleeding and LLQ abdominal pain, which he states was similar to pain he has had in the past from diverticulitis. Upon arrival to the ER, he was noted to have a slightly decreased H/H, but no elevation in his WBC or BUN. He subsequently underwent a CT scan of the abd/pelvis and had findings consistent with extensive diverticulosis, however, no active diverticulitis. He was hospitalized in October and I saw the patient in consultation for [facility] GI while [employer] consultant. At that time, he did have active diverticulitis and completed a 10 day course of antibiotics. He was seen by Dr. Davis in on that visit, and it was not recommended that he undergo surgery at that time. The patient reports that he has not been able to undergo his outpatient colonoscopy and has had to cancel this on several occasions, as he has had "seven episodes of diverticulitis this year." Currently he complains of bilateral upper quadrant abdominal pain, as well as LLQ abdominal pain. He rates his abdominal pain as 5/10 in intensity, and asked me for increased narcotic analgesics. He has had no witnessed episodes of hematemesis or hematochezia since his arrival. His H/H has decreased from 13.3/38.9 to 12/35.8 since his arrival, and he did undergo an EGD with endoscopic therapy for a bleeding gastric ulcer last year by Dr. Jarrett. He does take BID PPI and carafate at home. He denies any fevers or chills, and has no further complaints. Allergies Allergy/AdvReac Type Severity Reaction Status Date / Time ketorolac Allergy Severe SHORTNESS Verified 11/27/18 15:04 OF BREATH,RASH Home Medications Home Medications Medication Instructions Recorded Confirmed Type atenolol 25 mg PO QAM 03/16/18 11/27/18 History lisinopril 20 mg PO QAM 03/16/18 11/27/18 History oxycodone 5 mg PO Q4H PRN 03/16/18 11/27/18 History pantoprazole 40 mg PO BID 03/16/18 11/27/18 History sucralfate [Carafate] 1 g PO ACHS 03/17/18 11/27/18 History Patient History Medical History Diverticulosis (Chronic) Chronic pain (Chronic) Avascular necrosis of bone of right hip (Chronic) s/p recent replacement at [facility] PUD (peptic ulcer disease) (Resolved) 2018 - gastric ulcer that required clipping GERD (gastroesophageal reflux disease) (Chronic) HTN (hypertension) (Chronic) Osteoarthritis (Chronic) Surgical History History of total right knee replacement (Chronic) H/O vasectomy (Resolved) S/P appendectomy (Resolved) S/P cholecystectomy (Resolved) S/P knee replacement (Resolved) S/P tonsillectomy (Resolved) Family History Father Coronary heart disease T2DM (type 2 diabetes mellitus) Mother Pancreatic cancer Hypertension Social History Preferred Language: Bengali Communication Ability: Effective Tilt Tray Driver Required: No Beliefs That Will Affect Care: None marital status: Current Living Situation: Other Current Living Situation Comment: Girl friend Other Information That Helps Us Care for You: No Feels Safe at Home: Yes Safety Concerns: Feels Safe At This Time Smoking Status: Never smoker Do You Dip or Chew Tobacco: No ; Second Hand Exposure: Yes (Girlfriend smokes but goes outside. Previous smoked. Mother did too.) ; Tobacco Cessation Education Requested by Patient: No Hx Alcohol Use: No Hx Substance Use: No Review of Systems Review of Systems: All systems reviewed & are unremarkable except as noted in HPI & below Physical Exam Constitutional: WD/WN, vitals as above Neck: trachea midline, no thyromegaly Respiratory: normal respiratory effort, lungs clear to auscultation Cardiovascular: RRR, no murmur, no edema Gastrointestinal (Abdomen): normal bowel sounds, soft, nontender, no hepatosplenomegaly Skin: no rashes, warm and dry Psychiatric: A+Ox3, euthymic affect Results & Data Vital Signs (Past 12 Hours) Vital Signs Temp Pulse Pulse Resp BP Pulse Ox 11/28/18 12:01 37.1 C 59 L 18 111/69 97 11/28/18 08:15 37.0 C 66 17 135/81 96 11/28/18 08:00 58 L 11/28/18 04:09 36.6 C 65 18 111/62 95 PG Care Time/CCT Total # of Minutes Spent Total Time Spent with Patient: Total time spent is greater than 50% in coordination of care (as documented) at patient's floor/unit and/or counseling patient:
--- NOTE | 2018-11-28 14:17 | Hospitalist Progress Note ---
Date of Service November 28, 2018 Assessment & Plan (1) Rectal bleeding: Patient is a 58 yr male with H/O recurrent diverticulitis, HTN, chronic pain on narcotics presents with H/O hematemesis and rectal bleeding X 1 day. Reported hematemesis and rectal bleeding H/O recurrent diverticulitis Diverticulosis CT ABD:Diverticulosis without evidence of diverticulitis. Both left and right- sided diverticulosis is present. Wall thickening of the sigmoid colon without pericolonic inflammatory change could suggest circular muscle hyperplasia/chronic diverticular disease. Hb at baseline Continue IV PPI, Sucralfate Monitor H&H Minimize IV narcotics as able Pain control Consulted GI Planned for Colonoscopy/EGD scheduled with Dr. Jarrett for Dec 17 (2) Hematemesis with nausea: Reports 3 episodes of bilious emesis with specks of bright red blood No recurrence since hospitalization H/O PUD s/p gastric ulcer clipping in 2017 Hb stable On IV protonix 40mg IV BID Continue Carafate Transfuse PRBC s PRN (3) Precordial chest pain: Likely due to multiple bouts of emesis H/O recent cardiac cath in July 2018 with widely patent coronary anatomy Troponin X 2: Negative monitor (4) Chronic pain: Endorses back pain, recent hip replacement Per PDMP, receives oxycodone 5mg Q4H PRN from provider in [place], [place] Continue home meds (5) HTN (hypertension): Continue atenolol, lisinopril DVT Px: SCDs Code Status Full Code Disposition: Expect to discharge home when stable Subjective Patient is seen and examined at bedside Complains of left-sided abdominal pain No hematemesis, rectal bleeding since hospitalization Hemoglobin stable Denies any chest pain, shortness of breath, dizziness, vomiting Nauseous earlier today which improved with medications Review of Systems Review of Systems: All systems reviewed & are unremarkable except as noted in HPI & below Physical Exam Physical Exam: Physical Exam: Vitals signs as noted above General Appearance:Moderately built and nourished, no apparent distress Head: normocephalic, Atraumatic Eyes: normal inspection, EOMI Neck: supple, Trachea midline Respiratory/Chest: Normal breath sounds, CTA Cardiovascular: S1, S2, No murmur Abdomen/GI:Soft, LLQ tender, Voluntary Guarding, Bowel sounds present Extremities/Musculoskelatal:normal inspection, no edema 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:AAOX3, grossly no focal neurological deficits Skin: normal color, warm Results & Data Vital Signs (Past 12 Hours) Vital Signs Temp Pulse Pulse Resp BP Pulse Ox 11/28/18 12:01 37.1 C 59 L 18 111/69 97 11/28/18 08:15 37.0 C 66 17 135/81 96 11/28/18 08:00 58 L 11/28/18 04:09 36.6 C 65 18 111/62 95 Laboratory Results Short CBC 11/27/18 11/27/18 11/28/18 Range/Units 15: 23:04 06:25 WBC 5.23 4.75 L (4.8-10.8) K/uL Hgb 13.3 L 12.4 L 12.0 L (14.0-18.0) g/dL Hct 38.9 L 36.8 L 35.8 L (42-52) % Plt Count 185 160 (130-400) K/uL BMP 11/27/18 11/28/18 15: 06:25 Sodium 144 145 Potassium 4.0 3.9 Chloride 113 H 112 H Carbon Dioxide 26 27 BUN 16 15 Creatinine 0.99 0.93 Glucose 87 80 Calcium 8.8 8.0 L Cardiac Enzymes 11/27/18 11/27/18 Range/Units 15: 23:04 Troponin I < 0.015 < 0.015 (0-0.045) ng/ml Liver Function 11/27/18 Range/Units 15: Total Bilirubin 0.3 (0.2-1) mg/dl AST 13 L (15-37) U/L ALT 25 (12-78) U/L Alkaline Phosphatase 101 (45-117) U/L Albumin 4.2 (3.4-5.0) gm/dl (1) HTN (hypertension) Hypertension type: unspecified Qualified Code(s): I10 - Essential (primary) hypertension
[2018-11-29] MEDS: OXYCODONE HCL IR 5 MG TAB (IMMEDIATE RELEASE) PO PRN ×6 (00:22→21:34)
[2018-11-29] MEDS: TRAMADOL HCL 50 MG TABLET PO PRN ×2 (04:51→08:57)
[2018-11-29 07:11] LABS: Hematocrit (blood only) 37.1 % (42-52); Hemoglobin 12.4 g/dL (14.0-18.0); Mean Corpuscular Hgb Conc 33.4 g/dL (32-36); Mean Corpuscular Volume 83.9 fL (80-100); Mean Platelet Volume 9.4 fL (7.4-10.4); Platelet Count 153 K/uL (130-400); RDW Coefficient of Variation 13.8 % (11.5-14.5); RDW Standard Deviation 42.3 fL (36.4-46.3); Red Blood Count 4.42 M/uL (4.7-6.1); White Blood Count 4.18 K/uL (4.8-10.8)
[2018-11-29 07:46] LABS: BUN Creatinine Ratio 10.2 (10-20); Calcium 8.6 mg/dl (8.5-10.1); Creatinine Clr Calc Pharmacy 99.1 ml/min; Est GFR (African American) 105.2; Est GFR (Non-African American) 90.8; Potassium 3.9 mmol/L (3.5-5.1)
[2018-11-29] MEDS: PANTOprazole 40 MG in SYRINGE 0 ML IV SCH (07:54)
[2018-11-29] MEDS: ATENOLOL 25 MG TABLET PO SCH (07:54)
[2018-11-29] MEDS: LISINOPRIL 20 MG TAB PO SCH (07:54)
[2018-11-29] MEDS: SUCRALFATE 1 GM TAB PO SCH ×4 (07:54→21:36)
[2018-11-29] MEDS ORDERED: DICYCLOMINE HCL 10 MG CAP PO PRN (10:14)
--- NOTE | 2018-11-29 10:18 | Gastroenterology Progress Note ---
Date of Service November 29, 2018 Assessment & Plan (1) Hematemesis with nausea: (2) Rectal bleeding: (3) Diverticulosis: Pt w hx of recurrent diverticulitis, presented over the weekend w hematemesis, abd pain, loose and bloody stools. Last admitted in October w diverticulitis treated w Cipro and Flagyl. Repeat CT abd/pelvis this admission w/o signs of diverticulitis. He does have hx of gastric ulcer noted last year via EGD, subsequent repeat EGD afterwards showed ulcer had healed, Hpylori negative. - Monitor H/H and transfuse prn - Continue PPI IV BID - NPO for EGD eval by Dr. Armando today - Check stool cx and Cdiff given recurrent diverticulitis and antibx uses this year - Dicyclomine 10mg TID prn abd pain - Consider Surgery eval for recurrent diverticulitis - Eventually would need colonoscopy, will discuss timing w Dr. Armando - GI will give further recs after EGD is completed Supervising Physician Co-Signing Physician Notes I saw and evaluated the patient. We are planning to do upper endoscopy today for evaluation of suspected hematemesis. The patient has a history of recurrent left-sided abdominal discomfort thought to be related to diverticulitis. His most recent show inflammatory changes in left colon. Physical exam No obvious distress Abdomen with mild diffuse tenderness no peritoneal rebound signs Impression: Patient with hematemesis planning for upper endoscopy today for f urther evaluation. If negative we may consider colonoscopy during this admission as the patient has not been able to schedule this as an outpatient. It is reassuring that his diverticulitis appears to have resolved based on CT imaging. Subjective Pt seen by Dr. Barger (covering GI on weekend) for hematemesis, rectal bleeding, abd pain symptoms similar to his prior diverticulitis episode. H/H stable, Hgb around 11-12. CT abd/pelvis w diverticulosis but no evidence of diverticulitis. + sigmoid colon wall thickening (muscle hyperplasia ? related to chronic diverticular disease) Pt currently NPO for EGD eval. Hx of gastric ulcer seen last Summer. Upon repeat EGD last year and earlier this year ulcer had healed. Hpylori negative. He said stools are loose, and still having pain across upper abd and along L side of abd today. Denies any more n/v. Review of Systems Review of Systems: All systems reviewed & are unremarkable except as noted in HPI & below Physical Exam Constitutional: WD/WN, vitals as above well groomed, cooperative and comfortable Eyes: PERRL, conjunctivae normal, anicteric sclerae ENMT: external ear and nose normal, oropharynx normal Respiratory: normal respiratory effort, lungs clear to auscultation Cardiovascular: RRR, no murmur, no edema Gastrointestinal (Abdomen): Inspection/Auscultation: normal bowel sounds Percussion/Palpation: + abdomen tender (along L side ) and abdomen soft Skin: no rashes, warm and dry no jaundice Neurologic: Motor/Sensory: no asterixis Psychiatric: A+Ox3, euthymic affect Lymphatic: no lymphedema Results & Data Vital Signs (Past 12 Hours) Vital Signs Temp Pulse Pulse Resp BP BP Pulse Ox 11/29/18 07:19 36.7 C 63 20 137/78 99 11/29/18 03:28 36.6 C 58 L 18 107/64 96 11/29/18 00:49 64 11/29/18 00:00 36.5 C 62 20 105/58 L 97
--- NOTE | 2018-11-29 11:16 | Anesthesiology Consultation ---
Date of Service November 29, 2018 Assessment & Plan (1) Encounter for pre-operative examination: Chart Review Chart Review: Acceptable Risk for Surgery History Surgery Operation Date: 11/29/18 08:30 Proposed Procedures p Esophagogastroduodenoscopy Dr Tr Armando Height/Weight Height: 5 ft 9 in Weight: 93.8 kg Allergies Allergy/AdvReac Type Severity Reaction Status Date / Time ketorolac Allergy Severe SHORTNESS Verified 11/27/18 15:04 OF BREATH,RASH Medications Home Medications Medication Instructions Recorded Confirmed Last Taken atenolol 25 mg PO QAM 03/16/18 11/27/18 11/27/18 10:00 lisinopril 20 mg PO QAM 03/16/18 11/27/18 10/30/18 oxycodone 5 mg PO Q4H PRN 03/16/18 11/27/18 11/27/18 10:00 pantoprazole 40 mg PO BID 03/16/18 11/27/18 11/27/18 10:00 sucralfate [Carafate] 1 g PO ACHS 03/17/18 11/27/18 11/27/18 10:00 Active Medications Generic Name Dose Route Start Last Admin Trade Name Freq PRN Reason Stop Dose Admin Atenolol 25 mg 11/28/18 09:00 11/29/18 07:54 Tenormin PO 12/28/18 08:59 25 mg QAM VELIA Administration Pantoprazole Sodium 40 mg/ 10 mls @ 5 mls/min 11/27/18 21:00 11/29/18 07:54 Syringe IV 12/27/18 20:59 5 mls/min BID@0900,2100 VELIA Administration Acetaminophen 65 mls @ 200 mls/hr 11/28/18 01:00 11/28/18 01:32 Ofirmev IV 12/28/18 00:59 Infused Q6H PRN Infusion pain Ioversol 93 ml 11/27/18 16:05 11/27/18 16:06 Optiray 320 100ml IV 12/01/18 16:04 93 ml ONCE PRN Administration Interaction Checking Lisinopril 20 mg 11/28/18 09:00 11/29/18 07:54 Zestril PO 12/28/18 08:59 20 mg QAM VELIA Administration Ondansetron HCl 4 mg 11/27/18 18:51 11/28/18 19:52 Zofran IV 12/27/18 18:50 4 mg Q6H PRN Administration Nausea Oxycodone HCl 5 mg 11/27/18 18:51 11/29/18 09:55 Roxicodone Immediate Rel PO 12/11/18 18:50 5 mg Q4H PRN Administration Pain Sucralfate 1 gm 11/27/18 21:00 11/29/18 11:08 Carafate Tab PO 12/27/18 20:59 Not Given ACHS VELIA Tramadol HCl 50 mg 11/27/18 21:03 11/29/18 08:57 Ultram PO 12/27/18 21:02 50 mg Q4H PRN Administration Pain Past Medical History Medical History Diverticulosis (Chronic) Chronic pain (Chronic) Avascular necrosis of bone of right hip (Chronic) s/p recent replacement at [facility] PUD (peptic ulcer disease) (Resolved) 2018 - gastric ulcer that required clipping GERD (gastroesophageal reflux disease) (Chronic) HTN (hypertension) (Chronic) Osteoarthritis (Chronic) Past Family History Family History Father Coronary heart disease T2DM (type 2 diabetes mellitus) Mother Pancreatic cancer Hypertension Past Surgical History Surgical History History of total right knee replacement (Chronic) H/O vasectomy (Resolved) S/P appendectomy (Resolved) S/P cholecystectomy (Resolved) S/P knee replacement (Resolved) S/P tonsillectomy (Resolved) Social History Smoking Status: Never smoker Do You Dip or Chew Tobacco: No Hx Alcohol Use: No Hx Substance Use: No substance use type: opiates Substance Use Type Other:: Roxicodone 5 mg Q4H PRN Last Used Substance: Hours (ago) Physical Exam Vital Signs Last Vital Signs Temp 36.7 C 11/29/18 07:19 Pulse 63 11/29/18 07:19 Resp 20 11/29/18 07:19 BP 137/78 11/29/18 07:19 Pulse Ox 99 11/29/18 07:19 Testing Laboratory Results 11/29/18 06:58 11/29/18 06:58 PT 11.2 Seconds (9.0-12.0) 11/27/18 15:19 INR 1.1 (0.9-1.1) 11/27/18 15:19 APTT 25.9 Seconds (21.0-31.0) 11/27/18 15:19 Blood Type O Negative 11/27/18 15:19 Antibody Screen NEGATIVE 11/27/18 15:19 Electrocardiogram Date: 11/28/18 Findings: + NSR @ (67) Echocardiogram Date: 07/14/18 EF: 55% LV Function: normal Valvular Disease: + no significant valvular disease Cardiac Catheterization Date: 07/14/18 Findings: + normal
[2018-11-29] MEDS ORDERED: LIDOCAINE HCL 2% 2 ML VIAL/AMP(20MG/ML) INFIL ONE (11:26)
[2018-11-29] MEDS ORDERED: PROPOFOL IV EMULSION 10 MG/ML 20 ML VIAL IV ONE (11:26)
--- NOTE | 2018-11-29 11:38 | History & Physical Bridge Note ---
Date of Service November 29, 2018 History & Physical Bridge Note I have examined the patient, reviewed the History & Physical and in the interval since the performance of the History & Physical I have noted the following changes of clinical significance: no changes noted. Patient for upper endoscopy today to evaluate a history of hematemesis. We have discussed the risks and benefits to include bleeding, infection, perforation and need for follow-up studies.
--- NOTE | 2018-11-29 12:11 | GI REPORT ---
Patient Name: Patrice Cr Procedure Date: 11/29/2018 11:30 AM Date of : 1960 Admit Type: Inpatient Age: 58 Gender: Male Attending MD: Erika Armando DO Procedure: Upper GI endoscopy Providers: Erika Armando DO Referring MD: Imtiaz Monroe Md Indications: Epigastric abdominal pain, Hematemesis Medicines: Monitored Anesthesia Care Complications: No immediate complications. Estimated blood loss: Minimal. Estimated Blood Loss: Estimated blood loss was minimal. Procedure: Pre-Anesthesia Assessment: - Prior to the procedure, a History and Physical was performed, and patient medications, allergies and sensitivities were reviewed. The patient's tolerance of previous anesthesia was reviewed. - The risks and benefits of the procedure and the sedation options and risks were discussed with the patient. All questions were answered and informed consent was obtained. - Patient identification and proposed procedure were verified prior to the procedure by the physician, the nurse and the pipe smoker machine operator. The procedure was verified in the procedure room. - Pre-procedure physical examination revealed no contraindications to sedation. - ASA Grade Assessment: III - A patient with severe systemic disease. - After reviewing the risks and benefits, the patient was deemed in satisfactory condition to undergo the procedure. - The anesthesia plan was to use monitored anesthesia care (MAC). - Immediately prior to administration of medications, the patient was re-assessed for adequacy to receive sedatives. - The heart rate, respiratory rate, oxygen saturations, blood pressure, adequacy of pulmonary ventilation, and response to care were monitored throughout the procedure. - The physical status of the patient was re-assessed after the procedure. After obtaining informed consent, the endoscope was passed under direct vision. Throughout the procedure, the patient's blood pressure, pulse, and oxygen saturations were monitored continuously. The Endoscope was introduced through the mouth, and advanced to the third part of duodenum. The upper GI endoscopy was accomplished without difficulty. The patient tolerated the procedure well. Findings: The examined esophagus was normal. The Z-line was regular and was found 38 cm from the incisors. Diffuse mild inflammation characterized by congestion (edema), erythema and granularity was found in the entire examined stomach. Biopsies were taken with a cold forceps for histology. The pathology specimen was placed into Bottle B. Estimated blood loss was minimal. The examined duodenum was normal. Biopsies were taken with a cold forceps for histology. The pathology specimen was placed into Bottle A. Estimated blood loss was minimal. Impression: - Normal esophagus. - Z-line regular, 38 cm from the incisors. - Gastritis. Biopsied. - Normal examined duodenum. Biopsied. Recommendation: - The patient will be observed post-procedure, until all discharge criteria are met. - Full liquid diet today. - Perform a colonoscopy at appointment to be scheduled (history of recurrent diverticulitis). Erika Armando D.O. Erika Armando, 11/29/2018 12:10:33 PM This report has been signed electronically. Note Initiated On: 11/29/2018 11:30 AM Number of Addenda: 0 I attest to the content of the Intraoperative Record and orders documented therein, exceptions below {[id number]}
--- NOTE | 2018-11-29 12:13 | Communication Note ---
Date of Service: November 29, 2018 The patient underwent upper endoscopy today for evaluation of suspected hematemesis. Findings Normal esophagus Mild gastritis Normal small intestine No source of upper gastrointestinal bleeding seen today. Recommendation Colonoscopy to be scheduled, as patient is unable to schedule this as an outpatient we will try to do this during the hospital admission
--- NOTE | 2018-11-29 12:26 | Anesthesiology Progress Note ---
Date of Service November 29, 2018 Anesthesia Post Procedure Vital Signs Vital Signs: Temp Pulse Pulse Resp BP BP Pulse Ox 11/29/18 12:09 36.9 C 60 18 110/74 97 11/29/18 11:19 36.9 C 59 L 16 161/100 H 97 11/29/18 07:19 36.7 C 63 20 137/78 99 11/29/18 03:28 36.6 C 58 L 18 107/64 96 11/29/18 00:49 64 11/29/18 00:00 36.5 C 62 20 105/58 L 97 11/28/18 20:01 36.7 C 62 18 118/73 96 11/28/18 15:50 36.9 C 66 18 148/84 H 96 Pain Intensity Abdomen: Pain Intensity: 0 Transfer of Care Handoff Completed per policy Notes Mental Status: alert / awake / arousable Patient Amnestic to Procedure: Yes Nausea / Vomiting: adequately controlled Pain: adequately controlled Airway Patency, RR, SpO2: stable & adequate BP & HR: stable & adequate Hydration State: stable & adequate Anesthetic Complications: no major complications apparent
[2018-11-29] MEDS: ONDANSETRON INJ 2 MG/ML 2 ML VIAL IV PRN (15:50)
--- NOTE | 2018-11-29 16:21 | Hospitalist Progress Note ---
Date of Service November 29, 2018 Assessment & Plan (1) Rectal bleeding: Patient is a 58 yr male with H/O recurrent diverticulitis, HTN, chronic pain on narcotics presents with H/O hematemesis and rectal bleeding X 1 day. Reported hematemesis and rectal bleeding H/O recurrent diverticulitis Diverticulosis CT ABD:Diverticulosis without evidence of diverticulitis. Both left and right- sided diverticulosis is present. Wall thickening of the sigmoid colon without pericolonic inflammatory change could suggest circular muscle hyperplasia/chronic diverticular disease. S/P EGD: Normal esophagus. Z line regular, 38 cm from the incisors. Gastritis biopsied. Normal duodenum,Biopsied Pathology:pending Hb at baseline Continue PPI, Sucralfate Monitor H&H Minimize IV narcotics as able Pain control Appreciate GI help Planned for Colonoscopy in AM Check stool for C. difficile if recurrence of diarrhea (2) Hematemesis with nausea: Reports 3 episodes of bilious emesis with specks of bright red blood No recurrence since hospitalization H/O PUD s/p gastric ulcer clipping in 2017 Hb stable On protonix, Carafate Transfuse PRBC s PRN S/P EGD: Gastritis (3) Precordial chest pain: Likely due to multiple bouts of emesis H/O recent cardiac cath in July 2018 with widely patent coronary anatomy Troponin X 2: Negative monitor Resolved (4) Chronic pain: Endorses back pain, recent hip replacement Per PDMP, receives oxycodone 5mg Q4H PRN from provider in [place], [place] Continue home meds (5) HTN (hypertension): Continue atenolol, lisinopril DVT Px: SCDs Code Status Full Code Disposition: Expect to discharge home when stable Subjective Patient is seen and examined at bedside Patient had an EGD earlier today--suggestive of gastritis Plan for colonoscopy tomorrow Reports mild abdominal pain similar to prior No hematemesis, rectal bleeding since hospitalization Denies any chest pain, shortness of breath, dizziness, vomiting Review of Systems Review of Systems: All systems reviewed & are unremarkable except as noted in HPI & below Physical Exam Physical Exam: Physical Exam: Vitals signs as noted above General Appearance:Moderately built and nourished, no apparent distress Head: normocephalic, Atraumatic Eyes: normal inspection, EOMI Neck: supple, Trachea midline Respiratory/Chest: Normal breath sounds, CTA Cardiovascular: S1, S2, No murmur Abdomen/GI:Soft, LLQ tender, Voluntary Guarding, Bowel sounds present Extremities/Musculoskelatal:normal inspection, no edema 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:AAOX3, grossly no focal neurological deficits Skin: normal color, warm Results & Data Vital Signs (Past 12 Hours) Vital Signs Temp Pulse Resp BP BP Pulse Ox 11/29/18 15:33 36.7 C 53 L 18 143/89 H 98 11/29/18 12:39 58 L 18 130/82 127/75 97 11/29/18 12:24 56 L 18 127/75 127/75 96 11/29/18 12:09 36.9 C 60 18 110/74 97 11/29/18 11:19 36.9 C 59 L 16 161/100 H 97 11/29/18 07:19 36.7 C 63 20 137/78 99 Laboratory Results Short CBC 11/29/18 Range/Units 06:58 WBC 4.18 L (4.8-10.8) K/uL Hgb 12.4 L (14.0-18.0) g/dL Hct 37.1 L (42-52) % Plt Count 153 (130-400) K/uL BMP 11/29/18 06:58 Sodium 143 Potassium 3.9 Chloride 109 H Carbon Dioxide 28 BUN 9 D Creatinine 0.93 Glucose 90 Calcium 8.6 (1) HTN (hypertension) Hypertension type: unspecified Qualified Code(s): I10 - Essential (primary) hypertension
[2018-11-29] MEDS ORDERED: BISACODYL 5 MG TABEC PO ONE (17:00)
[2018-11-29] MEDS ORDERED: POLYETHYLENE (MIRALAX) 17 GM PACK PO SCH ×2 (17:00→21:00)
[2018-11-30] MEDS: OXYCODONE HCL IR 5 MG TAB (IMMEDIATE RELEASE) PO PRN ×4 (01:49→14:37)
[2018-11-30] MEDS: ONDANSETRON INJ 2 MG/ML 2 ML VIAL IV PRN (05:44)
[2018-11-30 06:53] LABS: Hemoglobin 13.4 g/dL (14.0-18.0)
[2018-11-30 07:22] LABS: BUN Creatinine Ratio 7.9 (10-20); Calcium 8.6 mg/dl (8.5-10.1); Creatinine Clr Calc Pharmacy 97.6 ml/min; Est GFR (African American) 95.3; Est GFR (Non-African American) 82.2; Potassium 3.7 mmol/L (3.5-5.1)
--- NOTE | 2018-11-30 07:24 | Anesthesiology Progress Note ---
Date of Service November 30, 2018 Anesthesia Post Procedure Vital Signs Vital Signs: Temp Pulse Pulse Resp BP BP Pulse Ox 11/30/18 04:00 36.4 C L 57 L 18 107/68 96 11/30/18 00:00 67 11/29/18 23:10 36.6 C 67 18 120/74 97 11/29/18 19:57 36.8 C 64 18 156/95 H 97 11/29/18 19:43 36.4 C L 64 18 156/95 H 97 11/29/18 16:15 58 L 11/29/18 15:33 36.7 C 53 L 18 143/89 H 98 11/29/18 12:39 58 L 18 130/82 127/75 97 11/29/18 12:24 56 L 18 127/75 127/75 96 11/29/18 12:09 36.9 C 60 18 110/74 97 11/29/18 11:19 36.9 C 59 L 16 161/100 H 97 Pain Intensity Abdomen: Pain Intensity: 0 Notes Mental Status: alert / awake / arousable and participated in evaluation Nausea / Vomiting: adequately controlled Pain: adequately controlled Airway Patency, RR, SpO2: stable & adequate BP & HR: stable & adequate Hydration State: stable & adequate
[2018-11-30] MEDS: TRAMADOL HCL 50 MG TABLET PO PRN (08:01)
[2018-11-30] MEDS: SUCRALFATE 1 GM TAB PO SCH ×2 (08:02→11:34)
[2018-11-30] MEDS: LISINOPRIL 20 MG TAB PO SCH (08:02)
[2018-11-30] MEDS: ATENOLOL 25 MG TABLET PO SCH (08:02)
[2018-11-30] MEDS ORDERED: PANTOprazole 40 MG TAB PO SCH (09:00)
--- NOTE | 2018-11-30 11:30 | History & Physical Bridge Note ---
Date of Service November 30, 2018 History & Physical Bridge Note I have examined the patient, reviewed the History & Physical and in the interval since the performance of the History & Physical I have noted the following changes of clinical significance: no changes noted Pt did well overnight, c/o mild tenderness across mid to lower abd areas. No n/v, CP, SOB. He hasn't seen any more rectal bleeding. He completed bowel prep in anticipation for colonoscopy today. Had been NPO. VS, labs reviewed. Exam: - AAOx3, in NAD - CTA bilateral lungs - HRR no murmur or gallops - Abd soft, TTP lower quadrants, BS + - No edema on extremities GI will give further recs after Colonoscopy is performed I saw and evaluated the patient. We are planning to do colonoscopy today given his recurrent diverticulitis over the past few months. Patient tolerated his bowel prep without any difficulty. His most recent CT scan showed no inflammatory changes within the colon. We have discussed the risks of colonoscopy to include bleeding, infection, perforation and need for follow-up studies.
[2018-11-30] MEDS ORDERED: ATROPINE SULFATE 0.1 MG/ML 10ML SYR IV PRN (12:38)
[2018-11-30] MEDS ORDERED: ePHEDrine sulfate 50 MG/ML AMP IV PRN (12:38)
--- NOTE | 2018-11-30 12:38 | Anesthesiology Consultation ---
Date of Service November 30, 2018 Assessment & Plan Chart Review Chart Review: Acceptable Risk for Surgery and Patient NOT seen in Pre Admission Testing Consults Requested none ASA ASA3 Proposed Anesthesia Anesthesia Type: MAC Risk / Benefits Reviewed With: PT / POA / Parent / Guardian, Accepts Plan and Informed Consent Obtained History Surgery Operation Date: 11/29/18 08:30 Proposed Procedures p Esophagogastroduodenoscopy Dr Tr Armando Operation Date: 11/30/18 08:30 Proposed Procedures p Colonoscopy Dr Tr Armando Height/Weight Height: 5 ft 9 in Weight: 107.7 kg Allergies Allergy/AdvReac Type Severity Reaction Status Date / Time ketorolac Allergy Severe SHORTNESS Verified 11/27/18 15:04 OF BREATH,RASH Medications Home Medications Medication Instructions Recorded Confirmed Last Taken atenolol 25 mg PO QAM 03/16/18 11/27/18 11/27/18 10:00 lisinopril 20 mg PO QAM 03/16/18 11/27/18 10/30/18 oxycodone 5 mg PO Q4H PRN 03/16/18 11/27/18 11/27/18 10:00 pantoprazole 40 mg PO BID 03/16/18 11/27/18 11/27/18 10:00 sucralfate [Carafate] 1 g PO ACHS 03/17/18 11/27/18 11/27/18 10:00 Active Medications Generic Name Dose Route Start Last Admin Trade Name Freq PRN Reason Stop Dose Admin Atenolol 25 mg 11/28/18 09:00 11/30/18 08:02 Tenormin PO 12/28/18 08:59 25 mg QAM VELIA Administration Acetaminophen 65 mls @ 200 mls/hr 11/28/18 01:00 11/28/18 01:32 Ofirmev IV 12/28/18 00:59 Infused Q6H PRN Infusion pain Ioversol 93 ml 11/27/18 16:05 11/27/18 16:06 Optiray 320 100ml IV 12/01/18 16:04 93 ml ONCE PRN Administration Interaction Checking Lisinopril 20 mg 11/28/18 09:00 11/30/18 08:02 Zestril PO 12/28/18 08:59 20 mg QAM VELIA Administration Ondansetron HCl 4 mg 11/27/18 18:51 11/30/18 05:44 Zofran IV 12/27/18 18:50 4 mg Q6H PRN Administration Nausea Oxycodone HCl 5 mg 11/27/18 18:51 11/30/18 09:45 Roxicodone Immediate Rel PO 12/11/18 18:50 5 mg Q4H PRN Administration Pain Pantoprazole Sodium 40 mg 11/30/18 09:00 11/30/18 08:02 Protonix PO 12/30/18 08:59 40 mg QAM VELIA Administration Sucralfate 1 gm 11/27/18 21:00 11/30/18 11:34 Carafate Tab PO 12/27/18 20:59 Not Given ACHS VELIA Tramadol HCl 50 mg 11/27/18 21:03 11/30/18 08:01 Ultram PO 12/27/18 21:02 50 mg Q4H PRN Administration Pain NPO Date Last Intake of Fluids: 11/30/18 Time Last Intake of Fluids: 04:30 Last Intake of Fluids Comment: water sip Date Last Intake of Solids: 11/27/18 Time Last Intake of Solids: 09:00 Past Medical History Medical History Diverticulosis (Chronic) Chronic pain (Chronic) Avascular necrosis of bone of right hip (Chronic) s/p recent replacement at [facility] PUD (peptic ulcer disease) (Resolved) 2018 - gastric ulcer that required clipping GERD (gastroesophageal reflux disease) (Chronic) HTN (hypertension) (Chronic) Osteoarthritis (Chronic) CAD (coronary artery disease) Exercise / Class Metabolic Activity III < 4 Walking/Shop/Light housework Past Family History Family History Father Coronary heart disease T2DM (type 2 diabetes mellitus) Mother Pancreatic cancer Hypertension Past Surgical History Surgical History History of total right knee replacement (Chronic) H/O vasectomy (Resolved) S/P appendectomy (Resolved) S/P cholecystectomy (Resolved) S/P knee replacement (Resolved) S/P tonsillectomy (Resolved) Past Anesthesia History No Hx of Anesthesia Complications and No Family Hx of Anesthesia Complications History of PONV No Hx of PONV and No Hx of Motion Sickness Social History Smoking Status: Never smoker Do You Dip or Chew Tobacco: No Hx Alcohol Use: No Hx Substance Use: No substance use type: opiates Substance Use Type Other:: Roxicodone 5 mg Q4H PRN Last Used Substance: Hours (ago) Physical Exam Vital Signs Last Vital Signs Temp 36.8 C 11/30/18 11:27 Pulse 65 11/30/18 11:27 Resp 20 11/30/18 11:27 BP 149/92 H 11/30/18 11:27 Pulse Ox 94 11/30/18 11:27 Constitutional + obese ENMT Mouth: no dentition abnormality Thyromental Distance: > or= 3.5 Finger Breadths Mallampati Class: II Neck normal visual inspection and trachea midline; neck extension not limited Respiratory normal respiratory effort Auscultation: lungs clear to auscultation bilaterally Cardiovascular Rate/Rhythm: regular rate and regular rhythm Heart Sounds: no murmur Vessels: no carotid bruit Musculoskeletal Spine: normal cervical ROM Neurologic moves all extremities Motor/Sensory: no sensory deficit Psychiatric Orientation: alert and oriented x 3 Testing Laboratory Results 11/30/18 06:33 11/30/18 06:33 PT 11.2 Seconds (9.0-12.0) 11/27/18 15:19 INR 1.1 (0.9-1.1) 11/27/18 15:19 APTT 25.9 Seconds (21.0-31.0) 11/27/18 15:19 Blood Type O Negative 11/27/18 15:19 Antibody Screen NEGATIVE 11/27/18 15:19
[2018-11-30] MEDS ORDERED: LIDOCAINE HCL 2% 2 ML VIAL/AMP(20MG/ML) INFIL ONE ×2 (12:52)
[2018-11-30] MEDS ORDERED: PROPOFOL IV EMULSION 10 MG/ML 20 ML VIAL IV ONE (12:52)
--- NOTE | 2018-11-30 13:12 | Anesthesiology Progress Note ---
Date of Service November 30, 2018 Anesthesia Post Procedure Vital Signs Vital Signs: Temp Pulse Pulse Resp BP BP Pulse Ox 11/30/18 12:41 36.9 C 61 16 154/89 H 97 11/30/18 11:27 36.8 C 65 20 149/92 H 94 11/30/18 09:20 78 11/30/18 07:31 36.6 C 66 18 131/77 99 11/30/18 04:00 36.4 C L 57 L 18 107/68 96 11/30/18 00:00 67 11/29/18 23:10 36.6 C 67 18 120/74 97 11/29/18 19:57 36.8 C 64 18 156/95 H 97 11/29/18 19:43 36.4 C L 64 18 156/95 H 97 11/29/18 16:15 58 L 11/29/18 15:33 36.7 C 53 L 18 143/89 H 98 Pain Intensity Abdomen: Pain Intensity: 0 Transfer of Care Handoff Completed per policy Notes Mental Status: alert / awake / arousable Patient Amnestic to Procedure: Yes Nausea / Vomiting: adequately controlled Pain: adequately controlled Airway Patency, RR, SpO2: stable & adequate BP & HR: stable & adequate Hydration State: stable & adequate Anesthetic Complications: no major complications apparent
--- NOTE | 2018-11-30 13:12 | Communication Note ---
Date of Service: November 30, 2018 The patient underwent colonoscopy today Findings: Diverticulosis of the ascending colon, sigmoid colon and descending colon 3 colonic polyps in the sigmoid colon removed Hemorrhoids Recommendations: Advance diet as tolerated If patient tolerates regular diet may consider discharge today.
--- NOTE | 2018-11-30 13:20 | GI REPORT ---
Patient Name: Patrice Cr Procedure Date: 11/30/2018 12:48 PM Date of : 1960 Admit Type: Inpatient Age: 58 Gender: Male Attending MD: Erika Armando DO Procedure: Colonoscopy Providers: Erika Armando DO Referring MD: Imtiaz Monroe Md Indications: Follow-up of diverticulitis Medicines: Monitored Anesthesia Care Complications: No immediate complications. Estimated blood loss: Minimal. Estimated Blood Loss: Estimated blood loss was minimal. Procedure: Pre-Anesthesia Assessment: - Prior to the procedure, a History and Physical was performed, and patient medications, allergies and sensitivities were reviewed. The patient's tolerance of previous anesthesia was reviewed. - The risks and benefits of the procedure and the sedation options and risks were discussed with the patient. All questions were answered and informed consent was obtained. - Patient identification and proposed procedure were verified prior to the procedure by the physician, the nurse and the public welfare worker. The procedure was verified in the procedure room. - Pre-procedure physical examination revealed no contraindications to sedation. - ASA Grade Assessment: III - A patient with severe systemic disease. - After reviewing the risks and benefits, the patient was deemed in satisfactory condition to undergo the procedure. - The anesthesia plan was to use monitored anesthesia care (MAC). - Immediately prior to administration of medications, the patient was re-assessed for adequacy to receive sedatives. - The heart rate, respiratory rate, oxygen saturations, blood pressure, adequacy of pulmonary ventilation, and response to care were monitored throughout the procedure. - The physical status of the patient was re-assessed after the procedure. After I obtained informed consent, the scope was passed under direct vision. Throughout the procedure, the patient's blood pressure, pulse, and oxygen saturations were monitored continuously. The Colonoscope was introduced through the anus and advanced to the terminal ileum. The colonoscopy was performed without difficulty. The patient tolerated the procedure well. The quality of the bowel preparation was adequate to identify polyps 6 mm and larger in size. Findings: The perianal and digital rectal examinations were normal. Pertinent negatives include normal sphincter tone. The terminal ileum appeared normal. Multiple small and large-mouthed diverticula were found in the sigmoid colon, descending colon and ascending colon. Three sessile polyps were found in the sigmoid colon. The polyps were 3 to 5 mm in size. These polyps were removed with a cold snare. Resection and retrieval were complete. The pathology specimen was placed into Bottle A. Estimated blood loss was minimal. Internal hemorrhoids were found during retroflexion. The hemorrhoids were moderate. The exam was otherwise without abnormality. Impression: - The examined portion of the ileum was normal. - Mild diverticulosis in the sigmoid colon, in the descending colon and in the ascending colon. - Three 3 to 5 mm polyps in the sigmoid colon, removed with a cold snare. Resected and retrieved. - Internal hemorrhoids. - The examination was otherwise normal. Recommendation: - Return patient to [facility] for [facility] care. - Advance diet as tolerated today. - Await pathology results. - Repeat colonoscopy in 1 year because the bowel preparation was suboptimal. - Use fiber, for example Citrucel, Fibercon, Konsyl or Metamucil. - Miralax 1 capful (17 grams) in 8 ounces of water PO daily. Erika Armando D.O. Erika Armando, 11/30/2018 1:19:42 PM This report has been signed electronically. Note Initiated On: 11/30/2018 12:48 PM Number of Addenda: 0 I attest to the content of the Intraoperative Record and orders documented therein, exceptions below {[id number]}
--- NOTE | 2018-11-30 14:13 | Hospitalist Progress Note ---
Date of Service November 30, 2018 Assessment & Plan (1) Rectal bleeding: Patient is a 58 yr male with H/O recurrent diverticulitis, HTN, chronic pain on narcotics presents with H/O hematemesis and rectal bleeding X 1 day. Reported hematemesis and rectal bleeding H/O recurrent diverticulitis Diverticulosis CT ABD:Diverticulosis without evidence of diverticulitis. Both left and right- sided diverticulosis is present. Wall thickening of the sigmoid colon without pericolonic inflammatory change could suggest circular muscle hyperplasia/chronic diverticular disease. S/P EGD: Normal esophagus. Z line regular, 38 cm from the incisors. Gastritis biopsied. Normal duodenum,Biopsied S/P Colonoscopy: Mild sigmoid colon diverticulosis in the descending colon and in the ascending colon. 3 to 5 mm polyps in the sigmoid colon removed. Internal hemorrhoids. Pathology:pending Hb at baseline Continue PPI, Sucralfate Monitor H&H Minimize IV narcotics as able Pain control Appreciate GI help Check stool for C. difficile if recurrence of diarrhea Plan to discharge home if tolerates diet Plan to discharge on MiraLAX daily and increase fiber in diet--Metamucil Needs repeat colonoscopy in 1 year (2) Hematemesis with nausea: Reports 3 episodes of bilious emesis with specks of bright red blood No recurrence since hospitalization H/O PUD s/p gastric ulcer clipping in 2018 Hb stable On protonix, Carafate Transfuse PRBC s PRN S/P EGD: Gastritis (3) Precordial chest pain: Likely due to multiple bouts of emesis H/O recent cardiac cath in July 2018 with widely patent coronary anatomy Troponin X 2: Negative monitor Resolved (4) Chronic pain: Endorses back pain, recent hip replacement Per PDMP, receives oxycodone 5mg Q4H PRN from provider in [place], [place] Continue home meds (5) HTN (hypertension): Continue atenolol, lisinopril DVT Px: SCDs Code Status Full Code Disposition: Expect to discharge home when stable Subjective Patient is seen and examined at bedside Patient had an colonoscopy today Nauseous earlier today Denies any bleeding issues Denies any chest pain, shortness of breath, dizziness, vomiting Review of Systems Review of Systems: All systems reviewed & are unremarkable except as noted in HPI & below Physical Exam Physical Exam: Physical Exam: Vitals signs as noted above General Appearance:Moderately built and nourished, no apparent distress Head: normocephalic, Atraumatic Eyes: normal inspection, EOMI Neck: supple, Trachea midline Respiratory/Chest: Normal breath sounds, CTA Cardiovascular: S1, S2, No murmur Abdomen/GI:Soft, non tender, Bowel sounds present Extremities/Musculoskelatal:normal inspection, no edema 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:AAOX3, grossly no focal neurological deficits Skin: normal color, warm Results & Data Vital Signs (Past 12 Hours) Vital Signs Temp Pulse Pulse Resp BP BP Pulse Ox 11/30/18 13:38 61 18 128/82 98 11/30/18 13:23 65 18 126/88 97 11/30/18 13:08 63 16 113/73 97 11/30/18 12:41 36.9 C 61 16 154/89 H 97 11/30/18 11:27 36.8 C 65 20 149/92 H 94 11/30/18 09:20 78 11/30/18 07:31 36.6 C 66 18 131/77 99 11/30/18 04:00 36.4 C L 57 L 18 107/68 96 Laboratory Results Short CBC 11/30/18 Range/Units 06:33 Hgb 13.4 L (14.0-18.0) g/dL Hct 39.0 L (42-52) % BMP 11/30/18 06:33 Sodium 142 Potassium 3.7 Chloride 107 Carbon Dioxide 30 BUN 8 Creatinine 1.01 Glucose 94 Calcium 8.6 (1) HTN (hypertension) Hypertension type: unspecified Qualified Code(s): I10 - Essential (primary) hypertension
--- NOTE | 2018-11-30 14:41 | Discharge Summary ---
Date of Service November 30, 2018 Admission HPI Per Admitting Provider This is a 58yo M with a PMH of recurrent diverticulitis, HTN, chronic pain on narcotics and other medical problems listed below who presents from home with hematemesis and rectal bleeding starting this morning. Patient woke up this morning he was nauseated and endorses 3 episodes of bilious vomit with specks of bright red blood. Then developed left-sided abdominal pain that wrapped around to his lower back with associated bloody bowel movements. Had one formed bowel movement that was dark brown in color mixed with bright red blood followed by 3 additional episodes of bloody diarrhea. Patient was getting in the shower when he began to feel lightheaded and near syncopal with left-sided heaviness of his chest. States the chest pain radiated up to neck and down left arm and is intermittent and made worse with exertion. Denies any fever, chills, headache, palpitations, shortness of breath, dysuria or lower extremity edema. Was brought in the ED for further evaluation by daughter. In ED, patient was found to be afebrile and hemodynamically stable. Received IV morphine and states abdominal pain has improved to 8/10 and chest pain to 6/10. Lab work reveals a normal wbc count and hemoglobin is at baseline at 13.3. EKG is without acute changes and troponin is normal. CXR without acute cardiopulmonary disease. CT abdomen pelvis without evidence of diverticulitis. Both left and right-sided diverticulosis is present. Wall thickening of the sigmoid colon without pericolonic inflammatory change could suggest circular muscle hyperplasia/chronic diverticular disease. Of note, this is patient's th ird admission in 3 months for hematemesis and abdominal pain. Admission Exam Per Admitting Provider General Appearance: WD/WN, vitals as above, NAD, sitting up in bed watching TV, conversing easily Head: normocephalic, atraumatic Eyes: normal inspection, PERRL, conjunctivae normal, anicteric sclerae ENT: external ear and nose normal, oropharynx normal Neck: trachea midline, no thyromegaly normal visual inspection Respiratory: normal respiratory effort, lungs clear to auscultation, no wheeze, rales, rhonchi. Normal insp/exp effort, no accessory muscle use Cardiovascular: regular rate, rhythm, no murmur, normal peripheral pulses. Vessels: no JVD Chest: no pain on palpation, normal inspection of chest Abdomen/GI: normal bowel sounds, soft, epigastrium and LLQ tender to palpation,no guarding, no hepatosplenomegaly Extremities/Musculoskelatal: no cyanosis or clubbing, extremities motor strength 5/5 Neurologic: PERRL, EOMI, accommodation nl, no face palsy, no dysarthria CN's II-XI intact bilaterally and moves all extremities Psychiatric: A+Ox3, euthymic affect Skin: no rashes, normal color, warm/dry Principal Diagnosis Rectal Bleeding--likely due to diverticular, polyps, internal hemorrhoid Discharge Data Allergies Allergy/AdvReac Type Severity Reaction Status Date / Time ketorolac Allergy Severe SHORTNESS Verified 11/27/18 15:04 OF BREATH,RASH Consultations 11/27/18 16:55 ED Decision to Admit Stat 11/28/18 08:00 Consult Gastroenterology Routine Colonoscopy Impression: - The examined portion of the ileum was normal. - Mild diverticulosis in the sigmoid colon, in the descending colon and in the ascending colon. - Three 3 to 5 mm polyps in the sigmoid colon, removed with a cold snare. Resected and retrieved. - Internal hemorrhoids. - The examination was otherwise normal. Recommendation: - Return patient to [facility] for ongoing care. - Advance diet as tolerated today. - Await pathology results. - Repeat colonoscopy in 1 year because the bowel preparation was suboptimal. - Use fiber, for example Citrucel, Fibercon, Konsyl or Metamucil. - Miralax 1 capful (17 grams) in 8 ounces of water PO daily. EGD: Impression: - Normal esophagus. - Z-line regular, 38 cm from the incisors. - Gastritis. Biopsied. - Normal examined duodenum. Biopsied. Recommendation: - The patient will be observed post-procedure, until all discharge criteria are met. - Full liquid diet today. - Perform a colonoscopy at appointment to be scheduled (history of recurrent diverticulitis). CT ABD: Diverticulosis without evidence of diverticulitis. Both left and right-sided diverticulosis is present. Wall thickening of the sigmoid colon without pericolonic inflammatory change could suggest circular muscle hyperplasia/chronic diverticular disease. CXR: No acute cardiopulmonary disease. Procedures Performed Operation Date: 11/29/18 08:30 Actual Procedures p EGD Biopsy Cytology - Erika Armando Operation Date: 11/30/18 08:30 Actual Procedures p Colonoscopy Polypectomy - Erika Armando Ordered Studies 11/27/18 14:39 CT abd pelvis IV con only Stat Hospital Course (1) Rectal bleeding: Patient is a 58 yr male with H/O recurrent diverticulitis, HTN, chronic pain on narcotics presents with H/O hematemesis and rectal bleeding X 1 day. Reported hematemesis and rectal bleeding H/O recurrent diverticulitis Diverticulosis CT ABD:Diverticulosis without evidence of diverticulitis. Both left and right- sided diverticulosis is present. Wall thickening of the sigmoid colon without pericolonic inflammatory change could suggest circular muscle hyperplasia/chronic diverticular disease. S/P EGD: Normal esophagus. Z line regular, 38 cm from the incisors. Gastritis biopsied. Normal duodenum,Biopsied S/P Colonoscopy: Mild sigmoid colon diverticulosis in the descending colon and in the ascending colon. 3 to 5 mm polyps in the sigmoid colon removed. Internal hemorrhoids. Pathology:pending Hb at baseline Continue PPI, Sucralfate Monitor H&H Minimize IV narcotics as able Pain control Appreciate GI help Check stool for C. difficile if recurrence of diarrhea Plan to discharge home if tolerates diet Plan to discharge on MiraLAX daily and increase fiber in diet--Metamucil Needs repeat colonoscopy in 1 year (2) Hematemesis with nausea: Reports 3 episodes of bilious emesis with specks of bright red blood No recurrence since hospitalization H/O PUD s/p gastric ulcer clipping in 2017 Hb stable On protonix, Carafate Transfuse PRBC s PRN S/P EGD: Gastritis (3) Precordial chest pain: Likely due to multiple bouts of emesis H/O recent cardiac cath in July 2018 with widely patent coronary anatomy Troponin X 2: Negative monitor Resolved (4) Chronic pain: Endorses back pain, recent hip replacement Per PDMP, receives oxycodone 5mg Q4H PRN from provider in [facility] [place] Continue home meds (5) HTN (hypertension): Continue atenolol, lisinopril DVT Px: SCDs Code Status Full Code Disposition: Expect to discharge home when stable Total Time Total Time Spent Total Time Spent (In Minutes): 39 minutes Total Time Includes: Examination of the Patient, Discharge Planning, Medication Reconciliation, Communication With Other Providers and Other Discharge Plan Discharge Items Patient Disposition: Home - Self-Care Reason For Visit: CHEST PAIN,RECTAL BLEEDING Discharge Diagnosis: Rectal Bleeding Activity: Resume your previous activity Exercise/Sports: Gradually increase as tolerated Non-emergency contact: Primary Care Provider and Cafeteria Helper Call non-emergency contact if: you have any medication questions, your symptoms worsen, your pain is not controlled, your pain is worsening, your pain is unusual for you and you have a fever Follow-up/Referrals: PCP,NO [Primary Care Provider] - Diet: Heart Healthy Addtl Attending Provider Instructions: Follow-up with your primary care physician in 1 week as advised Follow-up with your macadam raker as needed Follow-up with your surgeon Dr. Aragon early as advised Get repeat colonoscopy in 1 year as instructed by your macadam raker Continue MiraLAX daily and increase fiber in diet as advised by your macadam raker Seek immediate medical attention if your symptoms reoccur or worsen Your pathology report is pending at the time of discharge. Follow-up with your primary care physician for results. Pending Studies at Discharge: Yes Studies:: Pathology report Stand-Alone Forms: Call Back Authorization, [facility] Medications and DC Order Prescriptions: New polyethylene glycol 3350 [Miralax] 17 gram Powder In Packet 17 g PO DAILY 30 Days Qty: 30 RF: 0 Continued lisinopril 20 mg Tablet 20 mg PO QAM RF: 0 atenolol 25 mg Tablet 25 mg PO QAM RF: 0 pantoprazole 40 mg Tablet,Delayed Release (Dr/Ec) 40 mg PO BID RF: 0 oxycodone 5 mg Tablet 5 mg PO Q4H PRN (Reason: Pain) RF: 0 sucralfate [Carafate] 1 gram Tablet 1 g PO ACHS RF: 0 Discharge Orders: Discharge Order (Routine); Ordered 11/30/18 Ordered By: Imtiaz Monroe Admission Data Admit Date/Time: 11/28/18 19:16 Attending Provider: Imtiaz Monroe Admit Provider: René Terrazas Primary Care Provider: PCP,NO Other Providers: René Terrazas ; Zachary Barger Other Interventions: Discharge Summary Assessment (RN) Last Done: 11/30/18 15:07 DC Date/Time DO NOT enter until pt leaves facility: 11/30/18 16:35
[2018-12-01] MEDS ORDERED: POLYETHYLENE (MIRALAX) 17 GM PACK PO SCH (09:00)
== END 2018-11-30 16:35 | disposition home or self-care (01) | DRG 379 ==
LOC: ED 14:15 → 2E 14:15 → SUATTDRO 17:35 → 2E 18:28 → 2N 11-28 14:36

== ENCOUNTER 2019-07-31 16:54 | Inpatient (IN) ==
[2019-07-31] MEDS ORDERED: ONDANSETRON INJ 2 MG/ML 2 ML VIAL IV STA (17:38)
[2019-07-31] MEDS ORDERED: PANTOprazole 80 MG in DEXTROSE 5% 100 ML IV ONE (17:41)
[2019-07-31] MEDS ORDERED: PANTOPRAZOLE BOLUS/DRIP 1 EA IV STA (17:41)
[2019-07-31] MEDS ORDERED: SODIUM CHLORIDE 0.9% 1000ML 1,000 ML IV SCH (17:45)
--- NOTE | 2019-07-31 17:45 | Emergency Department Note ---
Impression & Plan Acute GI bleeding, Hematemesis, Bloody stool, Left sided abdominal pain ED Provider Note NAME: TAL GU AGE: 59 SEX: M : 1960 ARRIVES VIA: Walk-In INFORMANT: [Patient] ED PROVIDER(S): [Sedrick Flores MD] CHIEF COMPLAINT: Abdominal pain HISTORY OF PRESENT ILLNESS: Patient is a 59-year-old male presents the ER with about 8 hours of symptoms. The patient states that about 8 hours ago, he became nauseated and vomited. There was blood in the vomit. A short time thereafter he began experiencing epigastric and left-sided abdominal pain. The pain is sharp and radiates to his back. The pain is colicky and is rated as a 9/10. Nothing makes the pain be tter or worse. Patient states that in the last several hours, he has vomited blood a few more times and has also started with bloody diarrhea. There has been no fever, no chills, cough or congestion. The patient is not on any blood thinners or antiplatelets. The patient does have a history of a bleeding ulcer that was clipped. He also has a history of diverticulitis. Patient states that yesterday he felt fine. This morning, he just did not feel quite right initially, then the nausea began. No sick contacts, no known coronavirus exposures, no food eaten that he thinks was an issue. REVIEW OF SYSTEMS: See HPI for pertinent positives and negatives. A total of ten systems were reviewed and were otherwise negative. PMHx/PSHx: See Below SOCIAL HISTORY: See Below. PHYSICAL EXAM: GENERAL: Patient is in no acute distress. HEENT: No acute trauma, normocephalic atraumatic, mucous membranes moist, no nasal congestion, no scleral icterus. NECK: No stridor, no adenopathy, no meningismus, trachea is midline. LUNGS: Clear to auscultation bilaterally, no wheeze, no rhonchi, breath sounds equal. HEART: Without murmurs gallops or rubs, regular rate and rhythm. ABDOMEN: Soft, moderate tenderness in the epigastrium and left abdomen, no right abdominal tenderness. There was no peritonitis, abdomen was soft. EXTREMITIES: No cyanosis or edema, full range of motion of all the joints without pain or difficulty, no signs for acute trauma. NEUROLOGIC: Oriented x 3, no acute motor or sensory deficits, no focal weakness. SKIN: No rash, no jaundice, no diaphoresis. DIFFERENTIAL DIAGNOSIS: Appendicitis, testicular torsion, infections, diverticulitis, UTI, obstruction, mesenteric ischemia, aortic pathology, inflammatory bowel disease, renal colic, PUD, pancreatitis, ulcer, GI bleed, biliary pathology, hernia, volvulus, constipation, as well as other pathologies. EMERGENCY DEPARTMENT COURSE/PROCEDURES: ECG: Indication was vomiting and epigastric pain. The EKG shows a normal sinus rhythm with a rate of 70. The QTc is 427. There is no ST elevation, no PVCs. Continuous Cardiac Monitoring: An order was placed for continuous cardiac monitoring. The monitor shows a rate of 72 with normal sinus rhythm. MEDICAL DECISION MAKING: There is no leukocytosis or concerning anemia. There is a normal platelet count. No coagulopathy. No significant electrolyte abnormality or kidney failure. No concerning liver enzyme elevation. No evidence for pancreatitis. EKG shows a normal sinus rhythm, no ischemia. Cardiac enzyme testing x1 is not consistent with acute cardiac injury. Blood type is O-. Chest film did not show free air or pneumonia, there was no mediastinal widening. Abdominal and pelvis CT showed diverticulosis without acute diverticulitis. There was no acute surgical process by CT scan. The patient received IV Protonix as a bolus and then was placed on a Protonix drip. He was given IV morphine as needed for pain control. He received IV Zofran. Patient was given IV saline for hydration. The patient presents with hematemesis and bloody diarrhea. He has epigastric and left-sided abdominal pain. He has a history of GI bleeding. I do think a hospital stay is warranted. He may require a repeat endoscopy to sort out the hematemesis. I spoke to the patient, I talked with case management. The on-call hospitalist was consulted. The patient is currently resting comfortably. Past Med/Surg History Medical History Avascular necrosis of bone of right hip (Chronic) s/p recent replacement at [facility], [place], operated by [facility] CAD (coronary artery disease) Chronic pain (Chronic) Diverticulosis (Chronic) GERD (gastroesophageal reflux disease) (Chronic) HTN (hypertension) (Chronic) Osteoarthritis (Chronic) PUD (peptic ulcer disease) (Resolved) 2018 - gastric ulcer that required clipping Surgical History H/O vasectomy (Resolved) History of total right knee replacement (Chronic) S/P appendectomy (Resolved) S/P cholecystectomy (Resolved) S/P knee replacement (Resolved) S/P tonsillectomy (Resolved) Family History Father Coronary heart disease T2DM (type 2 diabetes mellitus) Mother Pancreatic cancer Hypertension Social History Preferred Language: Chinese Communication Ability: Effective Booster Pump Oiler Required: No Beliefs That Will Affect Care: None marital status: Current Living Situation: Spouse Current Living Situation Comment: Girl friend Other Information That Helps Us Care for You: No Feels Safe at Home: Yes Safety Concerns: Feels Safe At This Time Smoking Status: Never smoker Second Hand Exposure: Yes ; Hx Alcohol Use: No Hx Substance Use: No Allergies Allergies Allergy/AdvReac Type Severity Reaction Status Date / Time ketorolac Allergy Severe SHORTNESS Verified 07/31/19 19:01 OF BREATH,RASH Home Meds Home Medications Medication Instructions Recorded Confirmed atenolol 25 mg PO QAM 03/16/18 07/31/19 lisinopril 20 mg PO QAM 03/16/18 07/31/19 omeprazole 20 mg PO DAILYBB 07/31/19 07/31/19 Results & Data (ED) Vital Signs Vital Signs - 24 hr 07/31/19 17:08 07/31/19 17:50 07/31/19 18:36 Temperature 37.9 C H Temperature Source Oral Pulse Rate 80 75 Pulse Rate [Left Finger] 75 72 Pulse Rate from SpO2 Sensor Pulse Rhythm Regular Pulse Rhythm [Left Finger] Regular Pulse Strength [Left Finger] Normal Respiratory Rate 18 20 18 Respiratory Effort / Characteristics Non-Labored Spontaneous Respiratory Depth Normal Respiratory Pattern Regular Blood Pressure 176/85 H Blood Pressure [Left Arm] 160/92 H 165/99 H Blood Pressure Mean 115 Blood Pressure Mean [Left Arm] 114 121 Blood Pressure Position [Left Arm] Sitting Pulse Oximetry 96 96 97 Oxygen Delivery Method Room Air Room Air Room Air Sepsis Recent Fever Within 48 Hours Yes Sepsis New/Unexplained Change in Mental Status No Sepsis Action Taken by Nursing No Action Required 07/31/19 19:00 07/31/19 19:30 Temperature Temperature Source Pulse Rate 68 70 Pulse Rate [Left Finger] Pulse Rate from SpO2 Sensor 68 72 Pulse Rhythm Pulse Rhythm [Left Finger] Pulse Strength [Left Finger] Respiratory Rate 16 15 Respiratory Effort / Characteristics Respiratory Depth Respiratory Pattern Blood Pressure 160/95 H 155/82 H Blood Pressure [Left Arm] Blood Pressure Mean 124 105 Blood Pressure Mean [Left Arm] Blood Pressure Position [Left Arm] Pulse Oximetry 97 97 Oxygen Delivery Method Sepsis Recent Fever Within 48 Hours Sepsis New/Unexplained Change in Mental Status Sepsis Action Taken by Long-Term Medications Current Medication List: was personally reviewed by me Laboratory Data Attestation: I reviewed the patient's lab results. Result diagrams: 07/31/19 17:43 07/31/19 17:43 Lab Results 07/31/19 07/31/19 07/31/19 Range/Units 17:43 17:43 17:43 WBC 6.33 (4.8-10.8) K/uL RBC 4.90 (4.7-6.1) M/uL Hgb 14.6 (14.0-18.0) g/dL Hct 42.8 (42-52) % MCV 87.3 (80-100) fL MCH 29.8 (25-34) pg MCHC 34.1 (32-36) g/dL RDW Std Deviation 41.6 (36.4-46.3) fL RDW Coeff of Kim 12.9 (11.5-14.5) % Plt Count 219 (130-400) K/uL MPV 9.4 (7.4-10.4) fL Immature Gran % (Auto) 0.5 % Neut % (Auto) 63.5 % Lymph % (Auto) 25.4 % [place] % (Auto) 6.8 % Eos % (Auto) 3.5 % Baso % (Auto) 0.3 % Immature Gran # (Auto) 0.03 H (0.00-0.02) K/uL Neut # (Auto) 4.02 (1.4-6.5) K/uL Lymph # (Auto) 1.61 (1.2-3.4) K/uL [place] # (Auto) 0.43 (0.11-0.59) K/uL Eos # (Auto) 0.22 (0-0.5) K/uL Baso # (Auto) 0.02 (0-0.2) K/uL PT (9.0-12.0) Seconds INR (0.9-1.1) APTT (21.0-31.0) Seconds PTT Ratio Sodium 142 (136-145) mmol/L Potassium 4.0 (3.5-5.1) mmol/L Chloride 108 H (98-107) mmol/L Carbon Dioxide 26 (21-32) mmol/L Anion Gap 8.0 (3-11) BUN 18 (7-18) mg/dl Creatinine 0.91 (0.6-1.4) mg/dl Est Cr Clr Drug Dosing 112.2 ml/min Est GFR ( Amer) 107.3 Est GFR (Non-Af Amer) 92.6 BUN/Creatinine Ratio 20.3 H (10-20) Glucose 91 (70-99) mg/dl Calcium 8.5 (8.5-10.1) mg/dl Magnesium 2.2 (1.8-2.4) mg/dl Total Bilirubin 0.3 (0.2-1) mg/dl AST 17 (15-37) U/L ALT 35 (12-78) U/L Alkaline Phosphatase 87 (45-117) U/L Troponin I < 0.015 (0-0.045) ng/ml Total Protein 7.9 (6.4-8.2) gm/dl Albumin 4.3 (3.4-5.0) gm/dl Globulin 3.6 (2.5-4.0) gm/dl Albumin/Globulin Ratio 1.2 (0.9-2) Lipase 91 (73-393) U/L Blood Type O Negative Antibody Screen NEGATIVE 07/31/19 Range/Units 17:43 WBC (4.8-10.8) K/uL RBC (4.7-6.1) M/uL Hgb (14.0-18.0) g/dL Hct (42-52) % MCV (80-100) fL MCH (25-34) pg MCHC (32-36) g/dL RDW Std Deviation (36.4-46.3) fL RDW Coeff of Kim (11.5-14.5) % Plt Count (130-400) K/uL MPV (7.4-10.4) fL Immature Gran % (Auto) % Neut % (Auto) % Lymph % (Auto) % [place] % (Auto) % Eos % (Auto) % Baso % (Auto) % Immature Gran # (Auto) (0.00-0.02) K/uL Neut # (Auto) (1.4-6.5) K/uL Lymph # (Auto) (1.2-3.4) K/uL [place] # (Auto) (0.11-0.59) K/uL Eos # (Auto) (0-0.5) K/uL Baso # (Auto) (0-0.2) K/uL PT 11.8 (9.0-12.0) Seconds INR 1.1 (0.9-1.1) APTT 29.0 (21.0-31.0) Seconds PTT Ratio 1.0 Sodium (136-145) mmol/L Potassium (3.5-5.1) mmol/L Chloride (98-107) mmol/L Carbon Dioxide (21-32) mmol/L Anion Gap (3-11) BUN (7-18) mg/dl Creatinine (0.6-1.4) mg/dl Est Cr Clr Drug Dosing ml/min Est GFR ( Amer) Est GFR (Non-Af Amer) BUN/Creatinine Ratio (10-20) Glucose (70-99) mg/dl Calcium (8.5-10.1) mg/dl Magnesium (1.8-2.4) mg/dl Total Bilirubin (0.2-1) mg/dl AST (15-37) U/L ALT (12-78) U/L Alkaline Phosphatase (45-117) U/L Troponin I (0-0.045) ng/ml Total Protein (6.4-8.2) gm/dl Albumin (3.4-5.0) gm/dl Globulin (2.5-4.0) gm/dl Albumin/Globulin Ratio (0.9-2) Lipase (73-393) U/L Blood Type Antibody Screen Administered Medications Hydromorphone HCl (Dilaudid) 0.5 mg IV Q3H PRN PRN Reason: Pain Stop: 08/14/19 21:40 Last Admin: 07/31/19 21:48 Dose: 0.5 mg Documented by: [id number] Sodium Chloride (Nss 1000ml) 1,000 mls @ 100 mls/hr IV .Q10H VELIA Stop: 08/30/19 21:40 Last Admin: 07/31/19 21:48 Dose: 100 mls/hr Documented by: [id number] Pantoprazole Sodium 40 mg/ (Dextrose) 100 mls @ 20 mls/hr IV Q5H VELIA Stop: 08/30/19 22:59 Last Admin: 07/31/19 23:26 Dose: 8 mg/hr, 20 mls/hr Documented by: [id number] Discontinued Medications Sodium Chloride (Nss 1000ml) 1,000 mls @ 100 mls/hr IV .Q10H VELIA Stop: 08/01/19 03:44 Last Infusion: 07/31/19 21:44 Dose: 0 mls/hr Documented by: [id number] Admin: 07/31/19 18:13 Dose: 100 mls/hr Documented by: [id number] Pantoprazole Sodium (Protonix Bolus/Drip) 0 mls @ 1 mls/hr IV ONE STA Stop: 07/31/19 17:42 Last Admin: 07/31/19 19:09 Dose: Not Given Documented by: [id number] Pantoprazole Sodium 40 mg/ (Dextrose) 100 mls @ 20 mls/hr IV Q5H [facility] Stop: 08/30/19 17:55 Last Infusion: 07/31/19 21:44 Dose: 0 mg/hr, 0 mls/hr Documented by: [id number] Admin: 07/31/19 18:36 Dose: 8 mg/hr, 20 mls/hr Documented by: [id number] Pantoprazole Sodium 80 mg/ (Dextrose) 120 mls @ 400 mls/hr IV NOW ONE Stop: 07/31/19 17:58 Last Infusion: 07/31/19 19:02 Dose: 0 mls/hr Documented by: [id number] Admin: 07/31/19 18:16 Dose: 400 mls/hr Documented by: [id number] Ioversol (Optiray 320 100ml) 94 ml IV ONCE PRN PRN Reason: Interaction Checking Stop: 08/04/19 19:16 Last Admin: 07/31/19 19:17 Dose: 94 ml Documented by: [id number] Morphine Sulfate (Morphine Sulfate) 4 mg IV Q30M PRN PRN Reason: Pain Stop: 08/14/19 17:37 Last Admin: 07/31/19 21:05 Dose: 4 mg Documented by: [id number] Admin: 07/31/19 20:05 Dose: 4 mg Documented by: [id number] Admin: 07/31/19 18:13 Dose: 4 mg Documented by: [id number] Ondansetron HCl (Zofran) 4 mg IV ONE STA Stop: 07/31/19 17:39 Last Admin: 07/31/19 18:13 Dose: 4 mg Documented by: [id number] Imaging Data Radiologist's Impression: XR chest 1V portable HISTORY: 59 years-old Male epig pain acute epigastric abdominal pain COMPARISON: Chest radiograph 11/27/2018 TECHNIQUE: Portable AP view of the chest FINDINGS: Cardiomediastinal and hilar silhouettes are within normal limits. No pneumothorax, pleural effusion, airspace consolidation or overt pulmonary edema. The bones of the chest appear grossly intact. IMPRESSION: No acute process. ABDOMEN AND PELVIS CT WITH IV CONTRAST CT DOSE: 1501.60 mGy.cm HISTORY: Acute left-sided abdominal pain with bloody stools and vomiting left abd pain, bloody stool, vomiting TECHNIQUE: Multiaxial CT images of the abdomen and pelvis were performed following the IV administration of 94 cc of Optiray 320, A dose lowering technique was utilized adhering to the principles of ALARA. COMPARISON STUDY: CT abdomen and pelvis 11/27/2018. FINDINGS: Clear lung bases. No pneumatosis or pneumoperitoneum. The imaged inferior cardiac chambers are unremarkable. Mild splenomegaly, 14.5 cm. Pancreas is unremarkable. Mild bilateral adrenal gland thickening suggestive of hyperplasia. Soft tissue attenuating 1.9 cm right adrenal gland lesion is unchanged. Cholecystectomy. Likely postsurgical dilation of the common bile duct. Unremarkable appearance of the liver. A millimeter hypodensity of the inferior pole left kidney is too small to characterize possibly reflective of a cyst. Unremarkable appearance of the ureters. Mild urinary bladder wall thickening with partial distention. Calcifications of the central prostate. Pelvic structures are suboptimally visualized secondary to streak artifact from right hip arthroplasty. Aorta and IVC are unremarkable. No adenopathy. Hyperdense focus involving a loop of jejunum within the abdominal left upper quadrant on image 200 series 3 suggests ingested material. Several fluid-filled nondilated loops of small bowel. Unchanged mild wall thickening of the sigmoid colon. Colonic diverticulosis without acute diverticulitis. Mild fecal retention. Appendectomy. No ascites or mesenteric inflammation. Soft tissues are unremarkable. Bones appear intact. IMPRESSION: 1. Extensive colonic diverticulosis without acute diverticulitis. There is unchanged wall thickening of the sigmoid colon suggestive of muscular hypertrophy secondary to chronic diverticular disease. 2. No bowel obstruction. 3. Prior appendectomy and cholecystectomy. 4. Additional findings as above. Blood Pressure Blood Pressure Findings: Elevated blood pressure Blood Pressure Disposition: further management by hospitalist Discharge Plan Visit Data *Final* Discharge Date/Time: 07/31/19 21:17 Chief Complaint: Abdominal Pain Stated Complaint: SEVERE ABD PAIN, VOMITING BLOOD, BLOOD IN STOOL ED Provider: Sedrick Flores Discharge Problem: Acute GI bleeding, Hematemesis, Bloody stool, Left sided abdominal pain Patient Disposition: Admitted As Inpatient Condition: Good Discharge Instructions Interventions: ED Discharge Assessment Last Done: 07/31/19 21:17 Discharge Problem: Hematemesis Qualifiers: Nausea presence: with nausea Qualified Code(s): K92.0 - Hematemesis
[2019-07-31 17:55] LABS: Basophils # (auto) 0.02 K/uL (0-0.2); Basophils % (auto) 0.3 %; Eosinophils # (auto) 0.22 K/uL (0-0.5); Eosinophils % (auto) 3.5 %; Hematocrit (blood only) 42.8 % (42-52); Hemoglobin 14.6 g/dL (14.0-18.0); Immature Granulocytes # (auto) 0.03 K/uL (0.00-0.02); Immature Granulocytes % (auto) 0.5 %; Lymphocytes # (auto) 1.61 K/uL (1.2-3.4); Lymphocytes % (auto) 25.4 %; Mean Corpuscular Hemoglobin 29.8 pg (25-34); Mean Corpuscular Hgb Conc 34.1 g/dL (32-36); Mean Corpuscular Volume 87.3 fL (80-100); Mean Platelet Volume 9.4 fL (7.4-10.4); Monocytes # (auto) 0.43 K/uL (0.11-0.59); Monocytes % (auto) 6.8 %; Neutrophils # (auto) 4.02 K/uL (1.4-6.5); Neutrophils % (auto) 63.5 %; Platelet Count 219 K/uL (130-400); RDW Coefficient of Variation 12.9 % (11.5-14.5); RDW Standard Deviation 41.6 fL (36.4-46.3); White Blood Count 6.33 K/uL (4.8-10.8)
[2019-07-31] MEDS ORDERED: PANTOprazole 40 MG in DEXTROSE 5% 100 ML IV SCH (17:56)
[2019-07-31 18:06] LABS: INR 1.1 (0.9-1.1); Prothrombin Time 11.8 Seconds (9.0-12.0)
[2019-07-31] MEDS: MoRPHine SULFATE 4 MG/ML 1 ML CARP\\VIAL IV PRN ×3 (18:13→21:05)
--- NOTE | 2019-07-31 18:25 | XRay Report ---
XR chest 1V portable HISTORY: 59 years-old Male epig pain acute epigastric abdominal pain COMPARISON: Chest radiograph 11/27/2018 TECHNIQUE: Portable AP view of the chest FINDINGS: Cardiomediastinal and hilar silhouettes are within normal limits. No pneumothorax, pleural effusion, airspace consolidation or overt pulmonary edema. The bones of the chest appear grossly intact. IMPRESSION: No acute process. ACT 112: Negative or not required by law. The above report was generated using voice recognition software. It may contain grammatical, syntax o r spelling errors. Electronically signed by: Prashanth Batres M.D. 07/31/2019 6:24 PM
[2019-07-31 18:36] LABS: Alanine Aminotransferase 35 U/L (12-78); Albumin Level 4.3 gm/dl (3.4-5.0); Aspartate Aminotransferase 17 U/L (15-37); BUN Creatinine Ratio 20.3 (10-20); Blood Urea Nitrogen 18 mg/dl (7-18); Calcium 8.5 mg/dl (8.5-10.1); Carbon Dioxide 26 mmol/L (21-32); Chloride 108 mmol/L (98-107); Creatinine Clr Calc Pharmacy 112.2 ml/min; Est GFR (African American) 107.3; Est GFR (Non-African American) 92.6; Glucose 91 mg/dl (70-99); Lipase 91 U/L (73-393); Magnesium 2.2 mg/dl (1.8-2.4); Sodium 142 mmol/L (136-145)
[2019-07-31 18:41] LABS: Albumin Globulin Ratio 1.2 (0.9-2); Alkaline Phosphatase 87 U/L (45-117); Bilirubin,Total 0.3 mg/dl (0.2-1); Globulin 3.6 gm/dl (2.5-4.0); Total Protein 7.9 gm/dl (6.4-8.2); Troponin I < 0.015 ng/ml (0-0.045)
[2019-07-31] MEDS ORDERED: IOVERSOL 100ml IV PRN (19:17)
--- NOTE | 2019-07-31 19:33 | CT Scan Report ---
ABDOMEN AND PELVIS CT WITH IV CONTRAST CT DOSE: 1501.60 mGy.cm HISTORY: Acute left-sided abdominal pain with bloody stools and vomiting left abd pain, bloody stool , vomiting TECHNIQUE: Multiaxial CT images of the abdomen and pelvis were performed following the IV administrat ion of 94 cc of Optiray 320, A dose lowering technique was utilized adhering to the principles of AL EDWIN. COMPARISON STUDY: CT abdomen and pelvis 11/27/2018. FINDINGS: Clear lung bases. No pneumatosis or pneumoperitoneum. The imaged inferior cardiac chambers are unrema rkable. Mild splenomegaly, 14.5 cm. Pancreas is unremarkable. Mild bilateral adrenal gland thickening suggestive of hyperplasia. Soft tissue attenuating 1.9 cm right adrenal gland lesion is unchanged. C holecystectomy. Likely postsurgical dilation of the common bile duct. Unremarkable appearance of the liver. A millimeter hypodensity of the inferior pole left kidney is too small to characterize possibl y reflective of a cyst. Unremarkable appearance of the ureters. Mild urinary bladder wall thickening with partial distention. Calcifications of the central prostate. Pelvic structures are suboptimally v isualized secondary to streak artifact from right hip arthroplasty. Aorta and IVC are unremarkable. N o adenopathy. Hyperdense focus involving a loop of jejunum within the abdominal left upper quadrant on image 200 se elmer 3 suggests ingested material. Several fluid-filled nondilated loops of small bowel. Unchanged mi ld wall thickening of the sigmoid colon. Colonic diverticulosis without acute diverticulitis. Mild fe mauri retention. Appendectomy. No ascites or mesenteric inflammation. Soft tissues are unremarkable. Ryan uriah appear intact. IMPRESSION: 1. Extensive colonic diverticulosis without acute diverticulitis. There is unchanged wall thickening of the sigmoid colon suggestive of muscular hypertrophy secondary to chronic diverticular disease. 2. No bowel obstruction. 3. Prior appendectomy and cholecystectomy. 4. Additional findings as above. ACT 112: Negative or not required by law. The above report was generated using voice recognition software. It may contain grammatical, syntax o r spelling errors. Electronically signed by: Prashanth Batres M.D. 07/31/2019 7:31 PM
[2019-07-31] MEDS ORDERED: NITROGLYCERIN SL 0.4 MG/TAB TAB SL PRN (21:41)
[2019-07-31] MEDS ORDERED: ACETAMINOPHEN 325 MG TAB PO PRN (21:41)
[2019-07-31] MEDS: SODIUM CHLORIDE 0.9% 1000ML 1,000 ML IV SCH (21:48)
[2019-07-31] MEDS: HYDROmorphone INJ 0.5 MG/0.5 ML SYR IV PRN (21:48)
--- NOTE | 2019-07-31 21:50 | History and Physical Report ---
DATE OF ADMISSION: 07/31/2019 CHIEF COMPLAINT: GI bleed. HISTORY OF PRESENT ILLNESS: This is a 59-year-old male with past medical history significant for hypertension, recurrent diverticulitis, chronic pain on narcotics, presents with hematemesis. The patient says around 10 a.m. he vomited some blood, another episode at 3:00 and totally had 3-4 episodes. It was like mild to moderate amount of blood and also 1 episode of blood in the stools. Complains of severe abdominal pain, epigastric and left lower quadrant region and came to the ER. Currently, resting comfortably and hemodynamically stable. His hemoglobin is 14.6. He had similar episodes in 11/2018. At that time, EGD was done which showed normal esophagus, gastritis and colonoscopy was also done which showed mild sigmoid colon diverticulosis, 3-5 mm polyps in the sigmoid colon which were removed and internal hemorrhoids, otherwise unremarkable. The patient says he has a history of gastric ulcer, status post clipping in 2018. Denies any other complaints. Denies any headache, no dizziness, no blurred vision, no cough, no runny nose, no sore throat, no dysphagia, no chest pain, no shortness of breath. He has some diarrhea today. Normal bladder movements. No hematuria, no burning micturition, no swelling in the legs, no rash. Denies any exposure to COVID patients, lives with his girlfriend. Ambulates okay. ALLERGIES: KETOROLAC. PAST MEDICAL HISTORY: As mentioned above. PAST SURGICAL HISTORY: History of vasectomy, history of status post appendectomy, status post cholecystectomy, status post knee replacement, status post tonsillectomy. FAMILY HISTORY: Father had coronary artery disease, type 2 diabetes. Mother has pancreatic cancer, hypertension. SOCIAL HISTORY: Lives with his girlfriend. No smoking. No alcohol use, no drug use. MEDICATIONS: The patient is on atenolol 25 mg p.o. daily, lisinopril 20 mg p.o. a.m., omeprazole 20 mg p.o. a.m. REVIEW OF SYMPTOMS: As per HPI, rest of review of symptoms negative. PHYSICAL EXAMINATION: GENERAL: The patient is of moderate built, not in acute distress. VITAL SIGNS: Temperature 37.9, pulse 72, respiratory rate 18, blood pressure 165/99, oxygen 97% room air. HEENT: Pupils equal, round, and reactive to light. Extraocular muscles intact. NECK: No JVD. Supple. CARDIOVASCULAR: S1, S2 heard, regular rate and rhythm, no murmur, no gallop. RESPIRATORY SYSTEM: Normal AP diameter. No accessory muscle use. No wheezing, no crackles. ABDOMEN: Soft, bowel sounds sluggish. Tenderness in epigastric and left lower quadrant region. No guarding, no rigidity. No distention. CENTRAL NERVOUS SYSTEM: Cranial nerves II-XII grossly intact. Nonfocal. EXTREMITIES: No edema, no erythema. LABORATORY DATA: WBC 6.3, hemoglobin 14.6, hematocrit 42.8, platelets 219. PT 11.8, INR 1.1, APTT 29. Sodium 142, potassium 4, chloride 108, bicarbonate 26, BUN 18, creatinine 0.9, serum glucose 91, calcium 8.5, magnesium 2.2, total bilirubin 0.3, AST 17, ALT 35, alkaline phosphatase 87. Troponin I less than 0.015. Lipase 91. IMAGING: CAT scan of the abdomen and pelvis with IV contrast shows extensive colonic diverticulosis without acute diverticulitis. There is unchanged wall thickening of the sigmoid colon suggestive of muscular hypertrophy secondary to chronic diverticular disease. No bowel obstruction, prior appendectomy and cholecystectomy. Chest x-ray: No acute process. EKG: Normal sinus rhythm, rate of 70, no acute ST changes seen, no significant change was found. ASSESSMENT AND PLAN: 1. This is a 59-year-old male who presents with GI bleed, hematemesis and also some blood per rectum. The patient's hemoglobin is stable. The patient has history of gastric ulcer, status post clipping in 2018. In 11/2018, he had EGD and colonoscopy which were essentially unremarkable except for mild gastritis and polyps removed. We will place him on IV Protonix drip, n.p.o., IV fluids, IV antiemetics p.r.n., IV Dilaudid p.r.n. Consult GI in a.m. for further recommendation. Follow H and H q. 6 hours. 2. History of hypertension. Continue atenolol and lisinopril with holding parameters. 3. Deep venous thrombosis prophylaxis, sequential compression devices for now. 4. Disposition: Admit to med/surg tele. Level 1 full code. Expect to discharge home and follow with family doctor. MTDD
[2019-07-31] MEDS: PANTOprazole 40 MG in DEXTROSE 5% 100 ML IV SCH (23:26)
[2019-08-01] MEDS: HYDROmorphone INJ 0.5 MG/0.5 ML SYR IV PRN ×8 (01:09→23:35)
[2019-08-01] MEDS: ONDANSETRON INJ 2 MG/ML 2 ML VIAL IV PRN (04:12)
[2019-08-01] MEDS: PANTOprazole 40 MG in DEXTROSE 5% 100 ML IV SCH ×2 (04:24→09:22)
[2019-08-01 05:41] LABS: Basophils # (auto) 0.02 K/uL (0-0.2); Basophils % (auto) 0.3 %; Eosinophils # (auto) 0.11 K/uL (0-0.5); Eosinophils % (auto) 1.8 %; Hematocrit (blood only) 39.7 % (42-52); Hemoglobin 13.5 g/dL (14.0-18.0); Immature Granulocytes # (auto) 0.02 K/uL (0.00-0.02); Immature Granulocytes % (auto) 0.3 %; Lymphocytes # (auto) 0.77 K/uL (1.2-3.4); Lymphocytes % (auto) 12.3 %; Mean Corpuscular Hemoglobin 29.9 pg (25-34); Mean Corpuscular Volume 87.8 fL (80-100); Mean Platelet Volume 9.6 fL (7.4-10.4); Monocytes # (auto) 0.67 K/uL (0.11-0.59); Monocytes % (auto) 10.7 %; Neutrophils # (auto) 4.66 K/uL (1.4-6.5); Neutrophils % (auto) 74.6 %; Platelet Count 178 K/uL (130-400); RDW Standard Deviation 41.8 fL (36.4-46.3); Red Blood Count 4.52 M/uL (4.7-6.1); White Blood Count 6.25 K/uL (4.8-10.8)
[2019-08-01 05:58] LABS: Hematocrit (blood only) 39.4 % (42-52); Hemoglobin 13.3 g/dL (14.0-18.0)
[2019-08-01 06:11] LABS: BUN Creatinine Ratio 18.1 (10-20); Calcium 8.1 mg/dl (8.5-10.1); Creatinine Clr Calc Pharmacy 123.1 ml/min; Est GFR (African American) 112.4; Magnesium 2.1 mg/dl (1.8-2.4)
[2019-08-01] MEDS: SODIUM CHLORIDE 0.9% 1000ML 1,000 ML IV SCH (07:53)
[2019-08-01] MEDS: lisinopriL 20 MG TAB PO SCH (07:58)
[2019-08-01] MEDS: ATENOLOL 25 MG TABLET PO SCH (07:58)
--- NOTE | 2019-08-01 09:43 | Gastrointestinal Consultation ---
Date of Consultation August 01, 2019 Assessment & Plan (1) Hematemesis: Report of Hematemesis and rectal bleeding, w/o abnormal Hb or BUN and no further gross bleeding since arrival. Because he had EGD/Colonoscopy 8 months ago completed for similar symptoms, w/o significant findings, would avoid repeating endoscopy during this hospitalization. However, if gross GI bleeding is witnessed and there is a drop in Hb and/or increase in BUN then would reconsider. GI will watch peripherally, checking labs and I&O tomorrow. Present on Admission?: Yes (2) Rectal bleeding: See Hematemesis Present on Admission?: Yes Supervising Physician Co-Signing Physician Notes I have discussed the management with HUEY Jacome. Consult for hemeatemesis/? hematochezia per Dr. Weber. Review of chart in [facility] shows a prior gastric ulcer that had been treated and healed prior to most recent EGD done in 12/02 (cristian 8 months ago) with findings of no ulcer but gastritis and colonoscopy with diverticulosis and hyperplastic polyps in the sigmoid. Labs are significant for no bun rise and no significant drop in hgb. Givne recent scopes, no plans for repeat scopes during this admission unless signs of overt bleeding. Ok with PPI bid. Ok to dc home from a gi perspective when ready - strongly recommended to avoid ethanol and also nsaid's. History of Present Illness Reason for Consultation: gi bleed, hematemesis Requesting Physician: Dr. Morgan Attending Physician: Anabell Weber MD History of Present Illness Mr. Patrice Cr is a 59 yr old male with a hx of HTN, diverticular disease, PUD, GERD, on narcotics for chronic pain who presented to the ED with reports of hematemesis, hematochezia. A review of records shows that he reported 3-4 episodes of hematemesis and one bloody BM between 10 AM and 3PM yesterday. CT with IV contrast on arrival with diverticulosis. Hb on arrival was 14.6 ->13.5 today, BUN 15. I spoke with his nurse who reports no gross GI bleeding since arrival. He most recently underwent EGD and colonoscopy for report of hematemesis and hem atochezia in Nov [address] Armando with findings of mild gastritis, diverticulosis, three polyps, larges t5mm size. Path: hyperplastic. Allergies Allergy/AdvReac Type Severity Reaction Status Date / Time ketorolac Allergy Severe SHORTNESS Verified 07/31/19 19:01 OF BREATH,RASH Home Medications Home Medications Medication Instructions Recorded Confirmed Type atenolol 25 mg PO QAM 03/16/18 07/31/19 History lisinopril 20 mg PO QAM 03/16/18 07/31/19 History omeprazole 20 mg PO DAILYBB 07/31/19 07/31/19 History Patient History Medical History Avascular necrosis of bone of right hip (Chronic) s/p recent replacement at [facility] CAD (coronary artery disease) Chronic pain (Chronic) Diverticulosis (Chronic) GERD (gastroesophageal reflux disease) (Chronic) HTN (hypertension) (Chronic) Osteoarthritis (Chronic) PUD (peptic ulcer disease) (Resolved) 2018 - gastric ulcer that required clipping Surgical History H/O vasectomy (Resolved) History of total right knee replacement (Chronic) S/P appendectomy (Resolved) S/P cholecystectomy (Resolved) S/P knee replacement (Resolved) S/P tonsillectomy (Resolved) Family History Father Coronary heart disease T2DM (type 2 diabetes mellitus) Mother Pancreatic cancer Hypertension Social History Preferred Language: [place] Communication Ability: Effective Press Loader Required: No Beliefs That Will Affect Care: None marital status: Current Living Situation: Spouse Current Living Situation Comment: Girl friend Other Information That Helps Us Care for You: No Feels Safe at Home: Yes Safety Concerns: Feels Safe At This Time Smoking Status: Never smoker Second Hand Exposure: Yes ; Hx Alcohol Use: No Hx Substance Use: No Review of Systems Review of Systems: Review of records shows: See HPI for GI all other systems negative Physical Exam Physical Exam: Deferred Results & Data ([facility]) Vital Signs (Past 12 Hours) Vital Signs Temp Pulse Pulse Resp BP Pulse Ox 08/01/19 07:05 36.5 C 65 18 142/85 H 98 08/01/19 03:43 36.5 C 62 20 127/80 93 07/31/19 23:33 36.7 C 68 18 135/79 96 07/31/19 22:57 65 07/31/19 21:57 36.9 C 92 H 16 170/[address] with IV contrast 08/01/19: 1. Extensive colonic diverticulosis without acute diverticulitis. There is unchanged wall thickening of the sigmoid colon suggestive of muscular hypertrophy secondary to chronic diverticular disease. 2. No bowel obstruction. 3. Prior appendectomy and cholecystectomy. 4. Additional findings as above. Medications Administered On protonix drip (1) Hematemesis Nausea presence: with nausea Qualified Code(s): K92.0 - Hematemesis
[2019-08-01 11:10] LABS: Hemoglobin 13.6 g/dL (14.0-18.0)
[2019-08-01] MEDS: PANTOprazole 40 MG TAB PO SCH ×2 (11:11→20:35)
--- NOTE | 2019-08-01 16:52 | Electrocardiogram Report ---
Test Reason : Blood Pressure : / mmHG Vent. Rate : 070 BPM Atrial Rate : 070 BPM P-R Int : 194 ms QRS Dur : 092 ms QT Int : 396 ms P-R-T Axes : 052 -20 040 degrees QTc Int : 427 ms Normal sinus rhythm Normal ECG When compared with ECG of 28-NOV-2018 07:03, No significant change was found Confirmed by James Butler ([id number]) on 08/01/2019 4:51:46 PM Referred By: REFERRED SELF Confirmed By:Daniel Butler
--- NOTE | 2019-08-01 17:14 | Hospitalist Progress Note ---
Date of Service August 01, 2019 Assessment & Plan (1) Hematemesis: presented with brief episode of hematemesis and bloody bowel movement no episode of GI bleed so far H&H been stable no tachyardia or hypotension appreciate input from GI no indication for EGD or colnoscopy pt had similar episode on 11/2018 , egd /colonoscopy was unreamarkalbe PO PPI advance diet as tolerated follow H&H plan to dc home tomorrow if tolerates solid diet and no evidence of GI bleed FULL COde D Admission and Anticipated Discharge Date Admission Date: July 31, 2019 Subjective tolerating clears no episode of GI bleed no bowel movement so far no nausea /vomiting or abdominal pain vitals stable Review of Systems Gastrointestinal: no abdominal pain, no nausea, no vomiting, no blood in stoo ls and no melena Physical Exam Constitutional: WD/WN, vitals as above Eyes: PERRL, conjunctivae normal, anicteric sclerae ENMT: external ear and nose normal, oropharynx normal Neck: trachea midline, no thyromegaly Respiratory: normal respiratory effort, lungs clear to auscultation Cardiovascular: RRR, no murmur, no edema Gastrointestinal (Abdomen): normal bowel sounds, soft, nontender, no hepatosplenomegaly Musculoskeletal: no cyanosis or clubbing, extremities motor strength 5/5 Skin: no rashes, warm and dry Neurologic: PERRL, EOMI, accommodation nl, no face palsy, no dysarthria Psychiatric: A+Ox3, euthymic affect Results & Data Results & Data ([facility]) Vital Signs (Past 12 Hours) Vital Signs Temp Pulse Pulse Resp BP Pulse Ox 08/01/19 15:59 37.0 C 68 12 151/93 H 98 08/01/19 11:31 37.0 C 73 20 160/95 H 98 08/01/19 08:00 71 08/01/19 07:05 36.5 C 65 18 142/85 H 98 (1) Hematemesis Nausea presence: with nausea Qualified Code(s): K92.0 - Hematemesis
[2019-08-01 18:05] LABS: Hematocrit (blood only) 41.2 % (42-52); Hemoglobin 13.8 g/dL (14.0-18.0)
[2019-08-02] MEDS: HYDROmorphone INJ 0.5 MG/0.5 ML SYR IV PRN ×5 (02:40→15:11)
[2019-08-02 06:26] LABS: Hematocrit (blood only) 39.5 % (42-52); Hemoglobin 13.3 g/dL (14.0-18.0)
[2019-08-02 07:20] VITALS: PULSE 64
--- NOTE | 2019-08-02 08:09 | Communication Note ---
Date of Service: August 02, 2019 Pt HGB remained stable overnight. BUN nonelevated. No documented recurrence of bloody output. Please refer to yesterday assessment and plan for additional recommendations. No current GI indication for repeat endoscopy. Will sign off. Please recall as needed. HUEY HENRY 08/02/19 [id number]
[2019-08-02] MEDS: ONDANSETRON INJ 2 MG/ML 2 ML VIAL IV PRN ×2 (08:58→16:21)
[2019-08-02] MEDS: ATENOLOL 25 MG TABLET PO SCH (09:01)
[2019-08-02] MEDS: lisinopriL 20 MG TAB PO SCH (09:01)
[2019-08-02] MEDS: PANTOprazole 40 MG TAB PO SCH (09:01)
[2019-08-02 15:18] VITALS: BP 151/90; TEMP 98.8; O2SAT 98
--- NOTE | 2019-08-02 16:15 | Discharge Summary ---
Date of Service August 02, 2019 Admission HPI Per Admitting Provider DICTATED BY: Beck Morgan MD DATE OF ADMISSION: 07/31/2019 CHIEF COMPLAINT: GI bleed. HISTORY OF PRESENT ILLNESS: This is a 59-year-old male with past medical history significant for hypertension, recurrent diverticulitis, chronic pain on narcotics, presents with hematemesis. The patient says around 10 a.m. he vomited some blood, another episode at 3:00 and totally had 3-4 episodes. It was like mild to moderate amount of blood and also 1 episode of blood in the stools. Complains of severe abdominal pain, epigastric and left lower quadrant region and came to the ER. Currently, resting comfortably and hemodynamically stable. His hemoglobin is 14.6. He had similar episodes in 11/2018. At that time, EGD was done which showed normal esophagus, gastritis and colonoscopy was also done which showed mild sigmoid colon diverticulosis, 3-5 mm polyps in the sigmoid colon which were removed and internal hemorrhoids, otherwise unremarkable. The patient says he has a history of gastric ulcer, status post clipping in 2018. Denies any other complaints. Denies any headache, no dizziness, no blurred vision, no cough, no runny nose, no sore throat, no dysphagia, no chest pain, no shortness of breath. He has some diarrhea today. Normal bladder movements. No hematuria, no burning micturition, no swelling in the legs, no rash. Denies any exposure to COVID patients, lives with his girlfriend. Ambulates okay Principal Diagnosis GI BLEED /ABDOMINAL PAIN -RESOLVED Discharge Exam Constitutional WD/WN, vitals as above Eyes PERRL, conjunctivae normal, anicteric sclerae ENMT external ear and nose normal, oropharynx normal Neck trachea midline, no thyromegaly Respiratory normal respiratory effort, lungs clear to auscultation Cardiovascular RRR, no murmur, no edema Gastrointestinal (Abdomen) normal bowel sounds, soft, nontender, no hepatosplenomegaly Musculoskeletal no cyanosis or clubbing, extremities motor strength 5/5 Skin no rashes, warm and dry Neurologic PERRL, EOMI, accommodation nl, no face palsy, no dysarthria Psychiatric A+Ox3, euthymic affect Discharge Data Allergies Allergy/AdvReac Type Severity Reaction Status Date / Time ketorolac Allergy Severe SHORTNESS Verified 07/31/19 19:01 OF BREATH,RASH Consultations 07/31/19 19:42 ED Decision to Admit Stat 07/31/19 21:41 Consult Case Management - Discharge Planning Routine 08/01/19 08:00 Consult Gastroenterology Routine Ordered Studies 07/31/19 17:38 CT abd pelvis IV con only Stat Hospital Course (1) Hematemesis: presented with brief episode of hematemesis and bloody bowel movement no episode of GI bleed so far appreciate input from GI no indication for EGD or colnoscopy pt had similar episode on 11/2018 , egd /colonoscopy was unreamarkalbe PO PPI diet advanced to solid , tolerating well stable to be discharged home today Total Time Total Time Spent Total Time Spent (In Minutes): 35 MINS Total Time Includes: Examination of the Patient, Discharge Planning and Medication Reconciliation Discharge Plan Discharge Items Patient Disposition: Home - Self-Care Reason For Visit: GI BLEED, ABDOMINAL PAIN Discharge Diagnosis: GI BLEED /ABDOMINAL PAIN : RESOLVED Condition on Discharge: Good Activity: Resume your previous activity Non-emergency contact: Primary Care Provider Call non-emergency contact if: you have any medication questions Follow-up/Referrals: PCP,NO [Primary Care Provider] - Diet: Heart Healthy Addtl Attending Provider Instructions: FOLLOW UP WITH FAMILY PHYSICIAN IN A WEEK DO NOT TAKE ASPIRIN , ALEVE , MOTRIN , IBUPROPHEN , ADVIL, NAPROXEN -THESE ARE THE OVER THE COUNTER PAIN MEDICATION CAN LEAD TO SEVERE ACID REFLUX AND BLEEDING IN STOMACH Pending Studies at Discharge: No Stand-Alone Forms: [facility], Smoking Cessation Medications and DC Order Prescriptions: New oxycodone 5 mg tablet 5 mg PO Q8H PRN (Reason: pain) Qty: 10 RF: 0 Continued lisinopril 20 mg Tablet 20 mg PO QAM RF: 0 atenolol 25 mg Tablet 25 mg PO QAM RF: 0 omeprazole 20 mg Capsule,Delayed Release(Dr/Ec) 20 mg PO DAILYBB RF: 0 Discharge Orders: Discharge Order (Routine); Ordered 08/02/19 Ordered By: Anabell Weber Admission Data Admit Date/Time: 07/31/19 20:17 Attending Provider: Anabell Weber Admit Provider: Beck Morgan Primary Care Provider: PCP,NO Other Providers: Beck Morgan ; Tabatha Amaro ; Radha Macias ; Alia Waterman ; Monica Ohara ; Jesus Jarrett ; Erika Armando ; Maco Guerrero ; Tisha Moscoso ; Himanshu Olson ; Alphonse Garcia ; Carmel Johnson ; Christine García ; Aneta Oliveira ; Karen Field ; Vanessa Redding Other Interventions: Discharge Summary Assessment (RN) Last Done: 08/02/19 16:25 DC Date/Time DO NOT enter until pt leaves facility: 08/02/19 16:50
== END 2019-08-02 16:50 | disposition home or self-care (01) | DRG 379 ==
LOC: ED 16:54 → 2N 20:17

== ENCOUNTER 2020-04-26 12:07 | Inpatient (IN) ==
[2020-04-26 12:33] LABS: Basophils # (auto) 0.02 K/uL (0-0.2); Basophils % (auto) 0.4 %; Eosinophils # (auto) 0.06 K/uL (0-0.5); Eosinophils % (auto) 1.1 %; Hematocrit (blood only) 41.9 % (42-52); Hemoglobin 14.8 g/dL (14.0-18.0); Immature Granulocytes # (auto) 0.01 K/uL (0.00-0.02); Immature Granulocytes % (auto) 0.2 %; Lymphocytes # (auto) 0.76 K/uL (1.2-3.4); Lymphocytes % (auto) 13.6 %; Mean Corpuscular Hemoglobin 30.3 pg (25-34); Mean Corpuscular Hgb Conc 35.3 g/dL (32-36); Mean Corpuscular Volume 85.9 fL (80-100); Mean Platelet Volume 9.7 fL (7.4-10.4); Monocytes # (auto) 0.38 K/uL (0.11-0.59); Monocytes % (auto) 6.8 %; Neutrophils # (auto) 4.37 K/uL (1.4-6.5); Neutrophils % (auto) 77.9 %; Platelet Count 215 K/uL (130-400); RDW Coefficient of Variation 12.4 % (11.5-14.5); Red Blood Count 4.88 M/uL (4.7-6.1)
[2020-04-26 12:51] LABS: Alanine Aminotransferase 39 U/L (12-78); Albumin Level 4.3 gm/dl (3.4-5.0); Aspartate Aminotransferase 13 U/L (15-37); BUN Creatinine Ratio 18.4 (10-20); Blood Urea Nitrogen 18 mg/dl (7-18); Calcium 9.3 mg/dl (8.5-10.1); Carbon Dioxide 26 mmol/L (21-32); Chloride 108 mmol/L (98-107); Creatinine Clr Calc Pharmacy 103.6 ml/min; Est GFR (African American) 99.3; Est GFR (Non-African American) 85.7; Glucose 105 mg/dl (70-99); Lipase 84 U/L (73-393); Potassium 3.8 mmol/L (3.5-5.1); Sodium 141 mmol/L (136-145)
[2020-04-26 12:54] LABS: Albumin Globulin Ratio 1.2 (0.9-2); Alkaline Phosphatase 80 U/L (45-117); Bilirubin,Total 0.5 mg/dl (0.2-1); Globulin 3.5 gm/dl (2.5-4.0); Total Protein 7.8 gm/dl (6.4-8.2)
[2020-04-26] MEDS ORDERED: PANTOprazole 40 MG in SYRINGE 0 ML IV ONE (13:56)
[2020-04-26] MEDS ORDERED: FAMOTIDINE 20MG IV PUSH 20 MG/5 ML SYR IV STA (13:56)
[2020-04-26] MEDS ORDERED: ONDANSETRON INJ 2 MG/ML 2 ML VIAL IV STA (13:56)
--- NOTE | 2020-04-26 14:22 | Emergency Department Note ---
Impression & Plan Diverticulitis, Hematemesis, Abdominal pain, Acute GI bleeding ED Provider Note NAME: TAL GU AGE: 59 SEX: M : 1960 ARRIVES VIA: Walk-In INFORMANT: Patient, ED PROVIDER(S): Himanshu Venegas DO CHIEF COMPLAINT: Abdominal pain HPI: The patient is a 59-year-old male who presented to the emergency department for an evaluation of nausea vomiting and GI bleeding. The patient has a history of peptic ulcer disease but also a history of diverticulitis. He is noticed blood mixed with his stool but also had hematemesis. He notices symptoms over the last few days. He states they worsen this morning. He did not see his family doctor. He presented to the emergency department. He states he does not take NSAIDs. He is requesting something for pain as well as nausea. He denies having any fever. He has noticed no chest pain or difficulty breathing at this time. He states his symptoms are worsened with any food. He states he also notices increasing pain with palpation over the upper abdomen. ROS: See above HPI for pertinent positives & negatives. A total of 10 systems reviewed and were otherwise negative. PAST MEDICAL HISTORY: See Below PAST SURGICAL HISTORY: See Below FAMILY HISTORY: See Below SOCIAL HISTORY: See Below HOME MEDICATIONS: See Below ALLERGIES: See Below VITALS: See Below PHYSICAL EXAMINATION: GENERAL: Patient is awake alert in no acute distress patient is resting comfortably and showing no signs of anxiety EYES: The conjunctivae are clear. The pupils are round and reactive. EARS, NOSE, MOUTH AND THROAT: The nose is without any evidence of any deformity. NECK: The neck is nontender and supple. RESPIRATORY: Normal respiratory effort is noted there is no evidence of wheezing rhonchi or rales CARDIOVASCULAR: Regular rate and rhythm noted there no murmurs rubs or gallops normal S1 normal S2. GASTROINTESTINAL: The abdomen is moderately distended and diffusely tender. There is left lower quadrant tenderness to palpation as well as epigastric pain. Rectal exam revealed dark stool that was heme positive. MUSCULOSKELETAL/EXTREMITIES: There is no evidence of gross deformity full range of motion is noted in the hips and shoulders. SKIN: There is no obvious evidence of any rash. There are no petechiae, pallor or cyanosis noted. NEUROLOGIC: Patient is awake alert and oriented x3 strength is symmetric patellar reflexes are 2+ bilaterally MEDICAL DECISION MAKING: The patient is a 59-year-old male who presented to the emergency department for an evaluation of abdominal pain. The patient also reported hematemesis and lower GI bleeding as well. He has a history of peptic ulcer disease but also h as a history of diverticulitis. He was treated with IV fluids and IV pain medication. He was also treated with proton pump inhibitor and IV antibiotics when CT the abdomen and pelvis was notable for diverticulitis. I discussed the patient's laboratory and radiographic studies with him. I also discussed this case with the [facility]-call [facility]. They have agreed to evaluate the patient in the emergency department for further management and disposition. Triage Nursing notes reviewed. Prior medical records reviewed Vital Signs: reviewed and remarkable for elevated blood pressure. Differential diagnosis: Diverticulosis, AVM, coagulopathy, colitis, inflammatory bowel disease, maligna ncy, Natalie-Man tear, esophagitis, peptic ulcer disease, variceal bleed, gastritis, epistaxis, fissure, hemorrhoids, as well as other pathologies. ER treatment provided: See below Diagnostics interpreted by me: ECG: EKG was obtained in the emergency department. My interpretation is normal sinus rhythm at 65 bpm. There was no ectopy. There was no acute ST segment abnormalities noted. This was compared to a tracing from July 302019. No significant changes were noted. Cardiac Monitoring: An order was placed for continuous cardiac monitoring. The monitor shows a rate of 82 bpm with sinus rhythm. Laboratory studies: As stated above and show below. Imaging studies: See below Consultation(s): [id number]: I discussed this case with Joellen tolentino who is on-call for the [facility]. Past Med/Surg History Medical History Avascular necrosis of bone of right hip s/p recent replacement at [facility] CAD (coronary artery disease) GERD (gastroesophageal reflux disease) HTN (hypertension) Osteoarthritis PUD (peptic ulcer disease) 2018 - gastric ulcer that required clipping Surgical History H/O vasectomy History of total right knee replacement S/P appendectomy S/P cholecystectomy S/P knee replacement S/P tonsillectomy Family History Father Coronary heart disease T2DM (type 2 diabetes mellitus) Mother Pancreatic cancer Hypertension Social History Smoking Status: Never smoker Second Hand Exposure: Yes; Do You Dip or Chew Tobacco: No; Hx Alcohol Use: No Hx Substance Use: No Preferred Language: Portuguese Communication Ability: Effective Dental Intern Required: No Beliefs That Will Affect Care: None marital status: Current Living Situation: Significant Other Current Living Situation Comment: Girl friend Feels Safe at Home: Yes Safety Concerns: Feels Safe At This Time Assistive Devices: None Allergies Allergies Allergy/AdvReac Type Severity Reaction Status Date / Time ketorolac Allergy Severe SHORTNESS Verified 04/26/20 14:49 OF BREATH,RASH Home Meds Home Medications Medication Instructions Recorded Confirmed lisinopril 20 mg PO QAM 03/16/18 04/26/20 omeprazole 20 mg PO DAILYBB 07/31/19 04/26/20 atenolol 50 mg PO QAM 04/26/20 04/26/20 simvastatin 10 mg PO HS 04/26/20 04/26/20 Results & Data (ED) Vital Signs Vital Signs - 24 hr 04/26/20 12:10 04/26/20 14:54 04/26/20 16:12 Temperature 37.2 C Temperature Source Temporal Artery Scan Pulse Rate 71 63 Pulse Rate [Left] 61 59 L Pulse Rhythm Regular Respiratory Rate 18 18 20 Respiratory Effort / Characteristics Non-Labored Spontaneous Non-Labored Spontaneous Non-Labored Spontaneous Respiratory Depth Normal Normal Normal Blood Pressure 158/104 H Blood Pressure [Right Arm] 138/105 H 144/86 H Blood Pressure Mean 122 Blood Pressure Mean [Right Arm] 116 105 Blood Pressure Position [Right Arm] Lying Lying Pulse Oximetry 97 99 99 Oxygen Delivery Method Room Air Room Air Room Air Sepsis Recent Fever Within 48 Hours No Sepsis New/Unexplained Change in Mental Status No Sepsis Action Taken by Nursing No Action Required Home Medications Current Medication List: was personally reviewed by me Laboratory Data Attestation: I reviewed the patient's lab results. Result diagrams: 04/26/20 18:53 04/26/20 12:20 Lab Results 04/26/20 04/26/20 04/26/20 Range/Units 12:20 12:20 12:20 WBC 5.60 (4.8-10.8) K/uL RBC 4.88 (4.7-6.1) M/uL Hgb 14.8 (14.0-18.0) g/dL Hct 41.9 L (42-52) % MCV 85.9 (80-100) fL MCH 30.3 (25-34) pg MCHC 35.3 (32-36) g/dL RDW Std Deviation 39.0 (36.4-46.3) fL RDW Coeff of Kim 12.4 (11.5-14.5) % Plt Count 215 (130-400) K/uL MPV 9.7 (7.4-10.4) fL Immature Gran % (Auto) 0.2 % Neut % (Auto) 77.9 % Lymph % (Auto) 13.6 % [place] % (Auto) 6.8 % Eos % (Auto) 1.1 % Baso % (Auto) 0.4 % Neut # (Auto) 4.37 (1.4-6.5) K/uL Lymph # (Auto) 0.76 L (1.2-3.4) K/uL [place] # (Auto) 0.38 (0.11-0.59) K/uL Eos # (Auto) 0.06 (0-0.5) K/uL Baso # (Auto) 0.02 (0-0.2) K/uL Immature Gran # (Auto) 0.01 (0.00-0.02) K/uL PT 11.3 (9.0-12.0) Seconds INR 1.1 (0.9-1.1) APTT 27.3 (21.0-31.0) Seconds PTT Ratio 1.0 Sodium 141 (136-145) mmol/L Potassium 3.8 (3.5-5.1) mmol/L Chloride 108 H (98-107) mmol/L Carbon Dioxide 26 (21-32) mmol/L Anion Gap 7.0 (3-11) BUN 18 (7-18) mg/dl Creatinine 0.97 (0.6-1.4) mg/dl Est Cr Clr Drug Dosing 103.6 ml/min Est GFR ( Amer) 99.3 Est GFR (Non-Af Amer) 85.7 BUN/Creatinine Ratio 18.4 (10-20) Glucose 105 H (70-99) mg/dl Calcium 9.3 (8.5-10.1) mg/dl Total Bilirubin 0.5 (0.2-1) mg/dl AST 13 L (15-37) U/L ALT 39 (12-78) U/L Alkaline Phosphatase 80 (45-117) U/L Troponin I < 0.015 (0-0.045) ng/ml Total Protein 7.8 (6.4-8.2) gm/dl Albumin 4.3 (3.4-5.0) gm/dl Globulin 3.5 (2.5-4.0) gm/dl Albumin/Globulin Ratio 1.2 (0.9-2) Lipase 84 (73-393) U/L COVID-19 Eval Order SARS-CoV-2, RNA, NAAT (NEGATIVE) 04/26/20 04/26/20 Range/Units 16:05 16:05 WBC (4.8-10.8) K/uL RBC (4.7-6.1) M/uL Hgb (14.0-18.0) g/dL Hct (42-52) % MCV (80-100) fL MCH (25-34) pg MCHC (32-36) g/dL RDW Std Deviation (36.4-46.3) fL RDW Coeff of Kim (11.5-14.5) % Plt Count (130-400) K/uL MPV (7.4-10.4) fL Immature Gran % (Auto) % Neut % (Auto) % Lymph % (Auto) % [place] % (Auto) % Eos % (Auto) % Baso % (Auto) % Neut # (Auto) (1.4-6.5) K/uL Lymph # (Auto) (1.2-3.4) K/uL [place] # (Auto) (0.11-0.59) K/uL Eos # (Auto) (0-0.5) K/uL Baso # (Auto) (0-0.2) K/uL Immature Gran # (Auto) (0.00-0.02) K/uL PT (9.0-12.0) Seconds INR (0.9-1.1) APTT (21.0-31.0) Seconds PTT Ratio Sodium (136-145) mmol/L Potassium (3.5-5.1) mmol/L Chloride (98-107) mmol/L Carbon Dioxide (21-32) mmol/L Anion Gap (3-11) BUN (7-18) mg/dl Creatinine (0.6-1.4) mg/dl Est Cr Clr Drug Dosing ml/min Est GFR ( Amer) Est GFR (Non-Af Amer) BUN/Creatinine Ratio (10-20) Glucose (70-99) mg/dl Calcium (8.5-10.1) mg/dl Total Bilirubin (0.2-1) mg/dl AST (15-37) U/L ALT (12-78) U/L Alkaline Phosphatase (45-117) U/L Troponin I (0-0.045) ng/ml Total Protein (6.4-8.2) gm/dl Albumin (3.4-5.0) gm/dl Globulin (2.5-4.0) gm/dl Albumin/Globulin Ratio (0.9-2) Lipase (73-393) U/L COVID[facility], RNA, NAAT NEGATIVE (NEGATIVE) Administered Medications Sodium Chloride (Nss 1000ml) 1,000 mls @ 125 mls/hr IV .Q8H VELIA Stop: 05/26/20 18:33 Last Admin: 04/26/20 19:20 Dose: 125 mls/hr Documented by: [id number] Pantoprazole Sodium 40 mg/ (Syringe) 10 mls @ 5 mls/min IV BID VELIA Stop: 05/26/20 20:59 Last Admin: 04/26/20 20:14 Dose: 5 mls/min Documented by: [id number] Piperacillin Sod/Tazobactam (Sod 4.5 gm/ Dextrose) 120 mls @ 30 mls/hr IV Q8H VELIA; Protocol Stop: 05/06/20 19:59 Last Admin: 04/26/20 19:46 Dose: 30 mls/hr Documented by: [id number] Morphine Sulfate (Morphine Sulfate 4 Mg/Ml 1 Ml Carp\Vial) 4 mg IV Q4H PRN PRN Reason: Pain Stop: 05/10/20 19:22 Last Admin: 04/26/20 19:47 Dose: 4 mg Documented by: [id number] Ondansetron HCl (Ondansetron Inj 2 Mg/Ml 2 Ml Vial) 4 mg IV Q6H VELIA Stop: 05/26/20 19:59 Last Admin: 04/26/20 19:46 Dose: 4 mg Documented by: [id number] Simvastatin (Simvastatin 10 Mg Tab) 10 mg PO HS VELIA Stop: 05/26/20 20:59 Last Admin: 04/26/20 20:14 Dose: 10 mg Documented by: [id number] Discontinued Medications Famotidine (Pepcid 20mg Iv Push) 20 mg in 5 mls @ 2.5 mls/min IV NOW STA Stop: 04/26/20 13:57 Last Admin: 04/26/20 14:53 Dose: 2.5 mls/min Documented by: [id number] Pantoprazole Sodium 40 mg/ (Syringe) 10 mls @ 5 mls/min IV NOW ONE Stop: 04/26/20 13:57 Last Admin: 04/26/20 14:53 Dose: 5 mls/min Documented by: [id number] Piperacillin Sod/Tazobactam Sod (Zosyn) 4.5 gm in 120 mls @ 240 mls/hr IV NOW ONE Stop: 04/26/20 15:16 Last Infusion: 04/26/20 15:35 Dose: 0 mls/hr Documented by: [id number] Admin: 04/26/20 14:53 Dose: 240 mls/hr Documented by: [id number] Morphine Sulfate (Morphine Sulfate 4 Mg/Ml 1 Ml Carp\Vial) 4 mg IV Q30M PRN PRN Reason: Pain Stop: 05/10/20 15:14 Last Admin: 04/26/20 18:12 Dose: 4 mg Documented by: [id number] Admin: 04/26/20 15:34 Dose: 4 mg Documented by: [id number] Ondansetron HCl (Ondansetron Inj 2 Mg/Ml 2 Ml Vial) 4 mg IV NOW STA Stop: 04/26/20 13:57 Last Admin: 04/26/20 14:53 Dose: 4 mg Documented by: [id number] Imaging Data Radiologist's Impression: Patient: TAL GU Date: 04/26/20MR#: [id number]: [address], [address]Acct ID:[id number]: Date: 1960[facility] Zip: [place], [place] [address]Xic: 59Location: EDSex: MRoom/Bed:Att Phy:Diagnosis: VOMITING BLOOD AND BLOOD IN STOOLPri Phy: PCP,NOService Date: 04/26/20 Phy:Interpreting Phy: Sedrick Francis [facility] Phy: Ordering Phy: Himanshu Venegas DO cc: ~ SINGLE VIEW CHEST CLINICAL HISTORY: Vomiting. FINDINGS: An AP, portable, upright chest radiograph is compared to study dated 07/31/2019. The cardiomediastinal silhouette is unremarkable. There is mild bibasilar atelectasis. The lungs and pleural spaces are otherwise clear. No pneumothorax is seen. The bony thorax is grossly intact. IMPRESSION: No acute cardiopulmonary abnormality. ACT 112: Negative or not required by law. Electronically signed by: Sedrick Francis M.D. 04/26/2020 2:49 PM Dictated: 04/26/201448Transcribed: 04/26/201448 Patient: TAL GU Date: 04/26/20#: [id number]: [address], [address]Acct ID:[id number]: Date: 1960[facility] Zip: [place], [place] [address]Yeq: 59Location: EDSex: MRoom/Bed:Att Phy:Diagnosis: VOMITING BLOOD AND BLOOD IN STOOLPri Phy: PCP,NOService Date: 04/26/20 Phy:Interpreting Phy: Artem Rosen [facility] Phy: Ordering Phy: Himanshu Venegas DO cc: ~ CT SCAN OF THE ABDOMEN AND PELVIS WITHOUT CONTRAST CLINICAL HISTORY: LLQ COMPARISON STUDY: July 2019 TECHNIQUE: CT scan of the abdomen and pelvis was performed from the lung bases to the proximal femurs. Images are reviewed in the axial, sagittal, and coronal planes. IV contrast was not administered for this examination. A dose lowering technique was utilized adhering to the principles of ALARA. CT DOSE: 1720.36 mGy.cm FINDINGS: Lower chest: The heart is normal in size and configuration, without pericardial effusion. The lung bases and pleural spaces are clear. Liver: The unenhanced liver is normal in size, contour, and attenuation. There is no intrahepatic biliary ductal dilatation. Gallbladder: Surgically absent Spleen: The spleen is mildly elongated. Pancreas: Unremarkable. Adrenal glands: There is a stable 13 mm right adrenal nodule likely representing an adenoma Kidneys: The unenhanced kidneys are normal in size without hydronephrosis. There is no contour deforming renal mass lesion. No renal calculi are identified. Bowel: There are no transition zones indicate bowel obstruction. There is colonic diverticulosis. There are very minimal peridiverticular inflammatory changes within the sigmoid suggesting minimal diverticulitis. There are no fluid collections to indicate an abscess. There is no extraluminal gas. Peritoneum: There is no intraperitoneal free air or abdominal ascites. Vasculature: The abdominal aorta is normal in course and caliber. Adenopathy: None. Pelvic viscera: There are prostatic calcifications present. Skeletal structures: There is a total right hip arthroplasty. No destructive skeletal lesions are visualized. IMPRESSION: 1. Very subtle acute sigmoid diverticulitis. No evidence of peridiverticular abscess 2. No evidence of bowel obstruction. No evidence of free air. ACT 112: Negative or not required by law. Electronically signed by: Artem Rosen M.D. 04/26/2020 2:29 PM Dictated: 04/26/20 1424Transcribed: 04/26/20 1424 Blood Pressure Blood Pressure Findings: Elevated blood pressure Blood Pressure Disposition: further management by hospitalist Discharge Plan Visit Data Chief Complaint: Vomiting Stated Complaint: VOMITING BLOOD AND BLOOD IN STOOL ED Provider: Himanshu Venegas Discharge Problem: Diverticulitis, Hematemesis, Abdominal pain, Acute GI bleeding Patient Disposition: Admitted As Inpatient Condition: Good Discharge Instructions Interventions: ED Discharge Assessment Last Done: 04/26/20 18:08
--- NOTE | 2020-04-26 14:31 | CT Scan Report ---
CT SCAN OF THE ABDOMEN AND PELVIS WITHOUT CONTRAST CLINICAL HISTORY: LLQ COMPARISON STUDY: July 2019 TECHNIQUE: CT scan of the abdomen and pelvis was performed from the lung bases to the proximal femurs . Images are reviewed in the axial, sagittal, and coronal planes. IV contrast was not administered fo r this examination. A dose lowering technique was utilized adhering to the principles of ALARA. CT DOSE: 1720.36 mGy.cm FINDINGS: Lower chest: The heart is normal in size and configuration, without pericardial effusion. The lung ba ses and pleural spaces are clear. Liver: The unenhanced liver is normal in size, contour, and attenuation. There is no intrahepatic dieudonne iary ductal dilatation. Gallbladder: Surgically absent Spleen: The spleen is mildly elongated. Pancreas: Unremarkable. Adrenal glands: There is a stable 13 mm right adrenal nodule likely representing an adenoma Kidneys: The unenhanced kidneys are normal in size without hydronephrosis. There is no contour deform ing renal mass lesion. No renal calculi are identified. Bowel: There are no transition zones indicate bowel obstruction. There is colonic diverticulosis. The re are very minimal peridiverticular inflammatory changes within the sigmoid suggesting minimal diver ticulitis. There are no fluid collections to indicate an abscess. There is no extraluminal gas. Peritoneum: There is no intraperitoneal free air or abdominal ascites. Vasculature: The abdominal aorta is normal in course and caliber. Adenopathy: None. Pelvic viscera: There are prostatic calcifications present. Skeletal structures: There is a total right hip arthroplasty. No destructive skeletal lesions are vis ualized. IMPRESSION: 1. Very subtle acute sigmoid diverticulitis. No evidence of peridiverticular abscess 2. No evidence of bowel obstruction. No evidence of free air. ACT 112: Negative or not required by law. Electronically signed by: Artem Rosen M.D. 04/26/2020 2:29 PM
[2020-04-26] MEDS ORDERED: PIPERACILLIN/TAZOBACTAM 4.5 GM/120 ML BAG IV ONE (14:47)
[2020-04-26] MEDS ORDERED: PIPERACILL/TAZOBAC CONSULT ACTIVE PRN ×2 (14:47→18:34)
--- NOTE | 2020-04-26 14:51 | XRay Report ---
SINGLE VIEW CHEST CLINICAL HISTORY: Vomiting. FINDINGS: An AP, portable, upright chest radiograph is compared to study dated 07/31/2019. The cardiom ediastinal silhouette is unremarkable. There is mild bibasilar atelectasis. The lungs and pleural spa ana are otherwise clear. No pneumothorax is seen. The bony thorax is grossly intact. IMPRESSION: No acute cardiopulmonary abnormality. ACT 112: Negative or not required by law. Electronically signed by: Sedrick Francis M.D. 04/26/2020 2:49 PM
[2020-04-26 15:26] LABS: INR 1.1 (0.9-1.1); Partial Thromboplastin Time 27.3 Seconds (21.0-31.0); Prothrombin Time 11.3 Seconds (9.0-12.0)
[2020-04-26] MEDS: MoRPHine SULFATE 4 MG/ML 1 ML CARP\\VIAL IV PRN ×2 (15:34→18:12)
[2020-04-26 15:43] LABS: Troponin I < 0.015 ng/ml (0-0.045)
--- NOTE | 2020-04-26 16:35 | Electrocardiogram Report ---
Test Reason : Blood Pressure : / mmHG Vent. Rate : 065 BPM Atrial Rate : 065 BPM P-R Int : 196 ms QRS Dur : 096 ms QT Int : 404 ms P-R-T Axes : 042 -11 041 degrees QTc Int : 420 ms Normal sinus rhythm Normal ECG When compared with ECG of 31-JUL-2019 18:10, No significant change was found Confirmed by Bryan Sotelo ([id number]) on 04/26/2020 4:34:50 PM Referred By: SELF Confirmed By:Bryan Sotelo
--- NOTE | 2020-04-26 17:53 | History & Physical Report ---
Date of Service April 26, 2020 Assessment & Plan (1) Bloody stool: (2) Hematemesis: -admit to med/surg -patient presenting from home with reports of hematemesis and BRBPR -history of recurrent similar symptoms in the past; gastric ulcer s/p clipping in 2018 -EGD 11/2018: gastritis, colonoscopy 11/2009: internal hemorrhoids -? diverticular bleed -start PPI IV BID due to reports of hematemesis -hgb and vitals stable -serial H/H -NPO -GI consult, case discussed with HUEY Conner (3) Diverticulitis: -CT abd/pelvis shows mild acute sigmoid diverticulitis -history of recurrent diverticulitis -s/p Zosyn in the ED, continue with -needs follow up with general surgery (4) HTN (hypertension): -BP controlled, continue atenolol and lisinopril (5) DVT prophylaxis: -SCDs due to GI bleeding History of Present Illness Chief Complaint: Abdominal pain, hematemesis, bloody bowel movements Primary Care Provider: [facility] 59 year old male with PMH HTN, recurrent diverticulitis, PUD, chronic pain And other problems listed below who presents to the ED for evaluation of abdominal pain, hematemesis, bloody bowel movements. Patient reports that around midnight last night he had a bowel movement with maya ght red blood. He had another this morning however blood was darker in color. He then developed nausea and vomiting with bright red blood. He reports 3 episodes of hematemesis. He has had crampy abdominal pain for the past few days. He reports pain is located on both sides of the abdomen, more pronounced in the left lower quadrant. Denies fever and chills. Reports he otherwise has been feeling well recently. No chest pain or shortness of breath. Denies lightheadedness, dizziness, diaphoresis, and syncopal events. No urinary symptoms. In the ED, hgb stable at 14.8. CT abd/pelvis shows very subtle acute sigmoid diverticulitis. Patient is hemodynamically stable. Patient was given IV famotidine, IV morphine, IV zofran, IV protonix, IV Zosyn. Allergies Allergy/AdvReac Type Severity Reaction Status Date / Time ketorolac Allergy Severe SHORTNESS Verified 04/26/20 14:49 OF BREATH,RASH Home Medications Medication Instructions Recorded Confirmed Type lisinopril 20 mg PO QAM 03/16/18 04/26/20 History omeprazole 20 mg PO DAILYBB 07/31/19 04/26/20 History atenolol 50 mg PO QAM 04/26/20 04/26/20 History simvastatin 10 mg PO HS 04/26/20 04/26/20 History Past Med/Surg History Medical History Avascular necrosis of bone of right hip s/p recent replacement at [facility] CAD (coronary artery disease) GERD (gastroesophageal reflux disease) HTN (hypertension) Osteoarthritis PUD (peptic ulcer disease) 2018 - gastric ulcer that required clipping Surgical History H/O vasectomy History of total right knee replacement S/P appendectomy S/P cholecystectomy S/P knee replacement S/P tonsillectomy Family History Father Coronary heart disease T2DM (type 2 diabetes mellitus) Mother Pancreatic cancer Hypertension Social History Smoking Status: Never smoker Second Hand Exposure: Yes; Do You Dip or Chew Tobacco: No; Hx Alcohol Use: No Hx Substance Use: No Preferred Language: Polish Communication Ability: Effective Clinical Phlebotomist Required: No Beliefs That Will Affect Care: None marital status: Current Living Situation: Significant Other Current Living Situation Comment: Girl friend Feels Safe at Home: Yes Safety Concerns: Feels Safe At This Time Assistive Devices: None Review of Systems Review of Systems: ROS per HPI, all other systems reviewed and negative Physical Exam Constitutional: WD/WN, vitals as above Eyes: PERRL, conjunctivae normal, anicteric sclerae ENMT: external ear and nose normal, oropharynx normal Respiratory: normal respiratory effort, lungs clear to auscultation Cardiovascular: Rate/Rhythm: regular rate and regular rhythm Vessels: normal peripheral pulses Extremities: no edema Gastrointestinal (Abdomen): Inspection/Auscultation: + abdomen distended and normal bowel sounds Percussion/Palpation: + abdomen tender (diffusely tender, more pronounced in the LLQ) and abdomen soft; no hepatosplenomegaly Musculoskeletal: no cyanosis or clubbing, extremities motor strength 5/5 Skin: no rashes, warm and dry Neurologic: PERRL, EOMI, accommodation nl, no face palsy, no dysarthria Psychiatric: A+Ox3, euthymic affect Results & Data Results & Data ([facility]) Vital Signs (Past 12 Hours) Vital Signs Temp Pulse Pulse Resp BP BP Pulse Ox 04/26/20 17:17 59 L 16 137/96 97 04/26/20 16:12 59 L 20 144/86 H 99 04/26/20 14:54 63 61 18 138/105 H 99 04/26/20 12:10 37.2 C 71 18 158/104 H 97 Laboratory Results Short CBC 04/26/20 Range/Units 12:20 WBC 5.60 (4.8-10.8) K/uL Hgb 14.8 (14.0-18.0) g/dL Hct 41.9 L (42-52) % Plt Count 215 (130-400) K/uL BMP 04/26/20 12:20 Sodium 141 Potassium 3.8 Chloride 108 H Carbon Dioxide 26 BUN 18 Creatinine 0.97 Glucose 105 H Calcium 9.3 Cardiac Enzymes 04/26/20 Range/Units 12:20 Troponin I < 0.015 (0-0.045) ng/ml Liver Function 04/26/20 Range/Units 12:20 Total Bilirubin 0.5 (0.2-1) mg/dl AST 13 L (15-37) U/L ALT 39 (12-78) U/L Alkaline Phosphatase 80 (45-117) U/L Albumin 4.3 (3.4-5.0) gm/dl Diagnostic Findings CT ABD/PELVIS IMPRESSION: 1. Very subtle acute sigmoid diverticulitis. No evidence of peridiverticular abscess 2. No evidence of bowel obstruction. No evidence of free air. CXR IMPRESSION: No acute cardiopulmonary abnormality. Code Status & VTE Plan Code Status Patient is a full code as per my discussion with him. VTE Prophylaxis Plan VTE Prophylaxis will be ordered: Yes Supervising Physician Co-Signing Physician Notes Attending addendum: The patient was seen and examined in medical floor He is an obese 59-year-old male with significant past medical history of hypertension, recurrent diverticulitis, GERD and chronic pain has been having bloody bowel movement with abdominal pain and blood vomiting since last night. Still complains of pain in the left lower quadrant and epigastric discomfort No more bleeding since admission and hemoglobin remained stable Denies any other symptoms On examination Lying in bed comfortably Hemodynamically stable with blood pressure on the upper side Chest-clear to auscultate bilaterally Heart S1-S2, regular- Abdomen-not distended, soft, tender in the left lower quadrant without guarding and/or rebound, no tenderness in epigastrium, bowel sounds present Extremities -trace edema bilaterally His admission labs, EKG and imaging studies reviewed Has acute diverticulitis with hematochezia and hematemesis with history of PUD and diverticulitis He has been on intravenous fluid, intravenous PPI drip, antibiotic, pain medications GI consulted Agree with assessment and plan as outlined above by Joellen Abad (1) Hematemesis Nausea presence: with nausea Qualified Code(s): K92.0 - Hematemesis (2) HTN (hypertension) Hypertension type: unspecified Qualified Code(s): I10 - Essential (primary) hypertension
[2020-04-26 19:12] LABS: Hematocrit (blood only) 41.7 % (42-52); Hemoglobin 14.5 g/dL (14.0-18.0)
[2020-04-26] MEDS: SODIUM CHLORIDE 0.9% 1000ML 1,000 ML IV SCH (19:20)
[2020-04-26] MEDS ORDERED: MoRPHine SULFATE 4 MG/ML 1 ML CARP\\VIAL IV PRN (19:23)
[2020-04-26] MEDS: PIPERACILLIN/TAZOBACTAM 4.5 GM in DEXTROSE 5% 100 ML IV SCH (19:46)
[2020-04-26] MEDS ORDERED: ONDANSETRON INJ 2 MG/ML 2 ML VIAL IV SCH (20:00)
[2020-04-26] MEDS: PANTOprazole 40 MG in SYRINGE 0 ML IV SCH (20:14)
[2020-04-26] MEDS: SIMVASTATIN 10 MG TAB PO SCH (20:14)
[2020-04-26] MEDS ORDERED: oxyCODONE HCL IR 5 MG TAB (IMMEDIATE RELEASE) ONE (21:28)
[2020-04-26] MEDS: HYDROmorphone INJ 0.5 MG/0.5 ML SYR IV PRN (23:52)
[2020-04-27 00:38] LABS: Hemoglobin 13.5 g/dL (14.0-18.0)
[2020-04-27] MEDS ORDERED: ONDANSETRON INJ 2 MG/ML 2 ML VIAL IV PRN (01:21)
[2020-04-27] MEDS: ONDANSETRON INJ 2 MG/ML 2 ML VIAL IV SCH ×4 (02:52→21:55)
[2020-04-27] MEDS: oxyCODONE HCL IR 5 MG TAB (IMMEDIATE RELEASE) PO PRN ×4 (03:37→22:01)
[2020-04-27] MEDS: SODIUM CHLORIDE 0.9% 1000ML 1,000 ML IV SCH ×3 (03:39→23:08)
[2020-04-27] MEDS: PIPERACILLIN/TAZOBACTAM 4.5 GM in DEXTROSE 5% 100 ML IV SCH (04:34)
[2020-04-27] MEDS: HYDROmorphone INJ 0.5 MG/0.5 ML SYR IV PRN ×4 (05:44→20:04)
[2020-04-27 05:59] LABS: Hematocrit (blood only) 38.8 % (42-52); Hemoglobin 13.2 g/dL (14.0-18.0); Mean Corpuscular Hemoglobin 29.6 pg (25-34); Mean Platelet Volume 9.8 fL (7.4-10.4); Platelet Count 175 K/uL (130-400); RDW Coefficient of Variation 12.6 % (11.5-14.5); RDW Standard Deviation 40.6 fL (36.4-46.3); Red Blood Count 4.46 M/uL (4.7-6.1)
[2020-04-27 06:33] LABS: BUN Creatinine Ratio 15.7 (10-20); Calcium 8.4 mg/dl (8.5-10.1); Creatinine Clr Calc Pharmacy 97.2 ml/min; Est GFR (African American) 91.3; Est GFR (Non-African American) 78.8; Potassium 3.7 mmol/L (3.5-5.1)
--- NOTE | 2020-04-27 08:45 | Gastrointestinal Consultation ---
Date of Consultation April 27, 2020 Assessment & Plan (1) Acute GI bleeding: (2) Abdominal pain: (3) Diverticulitis: Pt is a 59 y/o male w hx of PUD, presented w hematemesis, rectal bleeding and abd pain symptoms. CT abd/pelvis showed mild sigmoid diverticulitis. VS, blood ct stable, BUN normal. Denies NSAIDs, ETOH, tobacco uses. Last EGD/Colonoscopy in 2019 - gastritis, hyperplastic colon polyps - Continue PPI IV BID for now - Keep NPO, plan for EGD eval today by Dr. Armando - Cipsariah/Flagyl antibx for diverticulitis - Recommend outpt colonoscopy in 6 week's time - Avoid NSAIDs, ETOH, high dose ASA Supervising Physician Co-Signing Physician Notes I saw and evaluated the patient. He has presented to us for evaluation of hematemesis, prior history of peptic ulcer disease with a last upper endoscopy i n 2017. Physical exam No obvious distress Abdominal tenderness Impression: Patient with a history of hematemesis, upper endoscopy requested for further evaluation, we will plan to do upper endoscopy this morning, we have discussed the risks to include bleeding, infection, perforation and need for follow-up studies. History of Present Illness Reason for Consultation: GI bleed Requesting Physician: Dr. Carlos A Ybarra Attending Physician: Dr. Erika Armando History of Present Illness Pt is a 59 y/o male who presented to ED yesterday w c/o hematemesis and rectal bleeding started 2 days ago. He reports having pain across upper abd areas and LLQ. Had BM 2 nights ago and noticed dark stools w BRBPR. Around same time felt nausea and vomited. Emesis with bright red blood x 3 episodes. No fever, chills, CP, SOB. On eval in ED he was noted to have normal blood ct and normal BUN. CT abd/pelvis showed mild sigmoid diverticulitis. Overnight he did have more BM w small amt of rectal bleeding. He also had an episode of n/v, noted blood streaked vomitus. Hx of PUD in 2018. Denies NSAID, tobacco, ETOH. Last EGD & colonoscopy in 2019 - gastritis, hyperplastic colon polyp but bowel prep wasn't optimal and recommended to have repeat colonoscopy in 1 yr Allergies Allergy/AdvReac Type Severity Reaction Status Date / Time ketorolac Allergy Severe SHORTNESS Verified 04/27/20 11:18 OF BREATH,RASH Home Medications Medication Instructions Recorded Confirmed Type lisinopril 20 mg PO QAM 03/16/18 04/26/20 History omeprazole 20 mg PO DAILYBB 07/31/19 04/26/20 History atenolol 50 mg PO QAM 04/26/20 04/26/20 History simvastatin 10 mg PO HS 04/26/20 04/26/20 History Patient History Medical History (Updated 04/27/20 @ 10:18 by Yun Koroma DO) Acute GI bleeding Avascular necrosis of bone of right hip s/p recent replacement at [facility] CAD (coronary artery disease) Diverticulitis GERD (gastroesophageal reflux disease) HTN (hypertension) Osteoarthritis PUD (peptic ulcer disease) 2018 - gastric ulcer that required clipping Surgical History H/O vasectomy History of total right knee replacement S/P appendectomy S/P cholecystectomy S/P knee replacement S/P tonsillectomy Family History Father Coronary heart disease T2DM (type 2 diabetes mellitus) Mother Pancreatic cancer Hypertension Social History Smoking Status: Never smoker Second Hand Exposure: Yes; Do You Dip or Chew Tobacco: No; Hx Alcohol Use: No Hx Substance Use: No Preferred Language: Kinyarwanda Communication Ability: Effective Multi Disciplined Language Analyst Required: No Beliefs That Will Affect Care: None marital status: Current Living Situation: Significant Other Current Living Situation Comment: Girl friend Feels Safe at Home: Yes Safety Concerns: Feels Safe At This Time Assistive Devices: None Review of Systems Review of Systems: All systems reviewed & are unremarkable except as noted in HPI & below Physical Exam Constitutional: WD/WN, vitals as above well groomed, cooperative and comfortable Eyes: PERRL, conjunctivae normal, anicteric sclerae ENMT: external ear and nose normal, oropharynx normal Respiratory: normal respiratory effort, lungs clear to auscultation Cardiovascular: RRR, no murmur, no edema Gastrointestinal (Abdomen): Inspection/Auscultation: + hyperactive bowel sounds Percussion/Palpation: + abdomen tender (LLQ ) and abdomen soft Skin: no rashes, warm and dry no jaundice Psychiatric: A+Ox3, euthymic affect Lymphatic: no lymphedema Results & Data ([facility]) Vital Signs (Past 12 Hours) Vital Signs Temp Pulse Resp BP Pulse Ox 04/27/20 07:08 36.6 C 56 L 16 129/77 98 04/26/20 23:51 112/70 04/26/20 23:08 36.7 C 59 L 16 148/77 H 98 (1) Abdominal pain Abdominal location: epigastric Qualified Code(s): R10.13 - Epigastric pain
[2020-04-27] MEDS: PANTOprazole 40 MG in SYRINGE 0 ML IV SCH ×2 (09:27→21:54)
[2020-04-27] MEDS: lisinopril 20 MG TAB PO SCH (09:27)
[2020-04-27] MEDS: ATENOLOL 50 MG TABLET PO SCH (09:28)
--- NOTE | 2020-04-27 10:21 | Anesthesiology Consultation ---
Date of Service April 27, 2020 Assessment & Plan Chart Review Chart Review: Acceptable Risk for Surgery Consults Requested none ASA ASA3 Proposed Anesthesia Anesthesia Type: MAC Risk / Benefits Reviewed With: PT / POA / Parent / Guardian, Accepts Plan and Informed Consent Obtained History Surgery Operation Date: 04/27/20 17:15 Proposed Procedures p Esophagogastroduodenoscopy Dr Tr Armando, Height/Weight Height: 5 ft 10 in Weight: 112.491 kg Allergies Allergy/AdvReac Type Severity Reaction Status Date / Time ketorolac Allergy Severe SHORTNESS Verified 04/27/20 11:18 OF BREATH,RASH Medications Home Medications Medication Instructions Recorded Confirmed Last Taken lisinopril 20 mg PO QAM 03/16/18 04/26/20 07/31/19 omeprazole 20 mg PO DAILYBB 07/31/19 04/26/20 07/31/19 atenolol 50 mg PO QAM 04/26/20 04/26/20 Unknown simvastatin 10 mg PO HS 04/26/20 04/26/20 Unknown Active Medications Generic Name Dose Route Start Last Admin Trade Name Freq PRN Reason Stop Dose Admin Atenolol 50 mg 04/27/20 09:00 04/27/20 09:28 Atenolol 50 Mg Tablet PO 05/27/20 08:59 Not Given QAM VELIA Hydromorphone HCl 1 mg 04/26/20 21:23 04/27/20 10:32 Hydromorphone Inj 0.5 Mg/0.5 Ml Syr IV 05/10/20 21:22 1 mg Q3H PRN Administration Pain Sodium Chloride 1,000 mls @ 125 mls/hr 04/26/20 18:34 04/27/20 11:09 Nss 1000ml IV 05/26/20 18:33 0 mls/hr .Q8H VELIA Infusion Pantoprazole Sodium 40 mg/ 10 mls @ 5 mls/min 04/26/20 21:00 04/27/20 09:27 Syringe IV 05/26/20 20:59 5 mls/min BID VELIA Administration Lisinopril 20 mg 04/27/20 09:00 04/27/20 09:27 Lisinopril 20 Mg Tab PO 05/27/20 08:59 20 mg QAM VELIA Administration Ondansetron HCl 4 mg 04/27/20 06:00 04/27/20 09:42 Ondansetron Inj 2 Mg/Ml 2 Ml Vial IV 05/27/20 05:59 4 mg Q6H VELIA Administration Oxycodone HCl 5 - 10 mg 04/26/20 21:23 04/27/20 09:41 Oxycodone Hcl Ir 5 Mg Tab (Immediate Release) PO 05/10/20 21:22 10 mg QID PRN Administration Pain Simvastatin 10 mg 04/26/20 21:00 04/26/20 20:14 Simvastatin 10 Mg Tab PO 05/26/20 20:59 10 mg HS VELIA Administration NPO Date Last Intake of Fluids: 04/27/20 Time Last Intake of Fluids: 08:00 Date Last Intake of Solids: 04/25/20 Time Last Intake of Solids: 18:00 Past Medical History Medical History (Updated 04/27/20 @ 10:18 by Yun Koroma DO) Acute GI bleeding Avascular necrosis of bone of right hip s/p recent replacement at [facility] CAD (coronary artery disease) Diverticulitis GERD (gastroesophageal reflux disease) HTN (hypertension) Osteoarthritis PUD (peptic ulcer disease) 2018 - gastric ulcer that required clipping Exercise / Class Metabolic Activity II 4-5 Yardwork/Stairs/Walk up hill Past Family History Family History Father Coronary heart disease T2DM (type 2 diabetes mellitus) Mother Pancreatic cancer Hypertension Past Surgical History Surgical History H/O vasectomy History of total right knee replacement S/P appendectomy S/P cholecystectomy S/P knee replacement S/P tonsillectomy Past Anesthesia History No Hx of Anesthesia Complications and No Family Hx of Anesthesia Complications History of PONV No Hx of PONV and No Hx of Motion Sickness Social History Smoking Status: Never smoker Do You Dip or Chew Tobacco: No Hx Alcohol Use: No Hx Substance Use: No substance use type: opiates Substance Use Type Other:: Roxicodone 5 mg Q4H PRN Last Used Substance: Hours (ago) Last Used Substance Other:: Evening of 09/30 Physical Exam Vital Signs Last Vital Signs Temp 36.6 C 04/27/20 07:08 Pulse 56 L 04/27/20 07:08 Resp 16 04/27/20 07:08 BP 129/77 04/27/20 07:08 Pulse Ox 98 04/27/20 07:08 ENMT Mouth: no TMJ abnormality Thyromental Distance: > or= 3.5 Finger Breadths Mallampati Class: II Neck normal visual inspection and trachea midline; neck extension not limited Respiratory normal respiratory effort Auscultation: lungs clear to auscultation bilaterally Cardiovascular Rate/Rhythm: regular rate and regular rhythm Heart Sounds: no murmur Musculoskeletal Spine: normal cervical ROM Extremities: full ROM of extremities Neurologic moves all extremities Psychiatric Orientation: alert and oriented x 3 Testing Laboratory Results 04/27/20 05:26 04/27/20 05:26 PT 11.3 Seconds (9.0-12.0) 04/26/20 12:20 INR 1.1 (0.9-1.1) 04/26/20 12:20 APTT 27.3 Seconds (21.0-31.0) 04/26/20 12:20 04/26/20 [place] COVID neg Electrocardiogram Date: 04/26/20 Findings: + NSR @ (65) Chest X-Ray Date: 04/26/20 Findings: + NAD Echocardiogram Date: 07/14/18 EF: 50-55 LV Function: normal RWMA: + none Other Findings: + diastolic dysfunction (gr 1 ) Valvular Disease: + no significant valvular disease Cardiac Catheterization Date: 07/14/18 Findings: + normal Intervention: + none
[2020-04-27] MEDS ORDERED: MIDAZOLAM HCL 1 MG/ML 2ML VIAL ONE (11:43)
[2020-04-27] MEDS ORDERED: LIDOCAINE 2% 2 ML VIAL/AMP(20MG/ML) INFIL ONE (11:44)
[2020-04-27] MEDS ORDERED: ONDANSETRON INJ 2 MG/ML 2 ML VIAL ONE (11:44)
[2020-04-27] MEDS ORDERED: PROPOFOL IV EMULSION 10 MG/ML 20 ML VIAL IV ONE (11:44)
--- NOTE | 2020-04-27 12:34 | GI REPORT ---
Patient Name: Patrice Cr Procedure Date: 04/27/2020 12:14 PM Date of : 1960 Admit Type: Inpatient Age: 59 Gender: Male Attending MD: Erika Armando DO Procedure: Upper GI endoscopy Providers: Erika Armando DO Referring MD: Carlos A Ybarra Indications: Hematemesis Medicines: Monitored Anesthesia Care Complications: No immediate complications. Estimated blood loss: Minimal. Estimated Blood Loss: Estimated blood loss was minimal. Procedure: Pre-Anesthesia Assessment: - Prior to the procedure, a History and Physical was performed, and patient medications, allergies and sensitivities were reviewed. The patient's tolerance of previous anesthesia was reviewed. - The risks and benefits of the procedure and the sedation options and risks were discussed with the patient. All questions were answered and informed consent was obtained. - Patient identification and proposed procedure were verified prior to the procedure by the physician, the nurse and the servicing manager. The procedure was verified in the procedure room. - Pre-procedure physical examination revealed no contraindications to sedation. - ASA Grade Assessment: III - A patient with severe systemic disease. - After reviewing the risks and benefits, the patient was deemed in satisfactory condition to undergo the procedure. - The anesthesia plan was to use monitored anesthesia care (MAC). - Immediately prior to administration of medications, the patient was re-assessed for adequacy to receive sedatives. - The heart rate, respiratory rate, oxygen saturations, blood pressure, adequacy of pulmonary ventilation, and response to care were monitored throughout the procedure. - The physical status of the patient was re-assessed after the procedure. After obtaining informed consent, the endoscope was passed under direct vision. Throughout the procedure, the patient's blood pressure, pulse, and oxygen saturations were monitored continuously. The Endoscope was introduced through the mouth, and advanced to the third part of duodenum. The upper GI endoscopy was accomplished without difficulty. The patient tolerated the procedure well. Findings: The examined esophagus was normal. The Z-line was regular and was found 40 cm from the incisors. Multiple 4 to 8 mm semi-sessile polyps with no bleeding and no stigmata of recent bleeding were found in the gastric fundus and in the gastric body. The incisura and gastric antrum were normal. The examined duodenum was normal. Impression: - Normal esophagus. - Z-line regular, 40 cm from the incisors. - Multiple gastric polyps, biopsies not done due to recent hematemesis. - Normal incisura and antrum. - Normal examined duodenum. - No specimens collected. Recommendation: - Return patient to hospital [facility] for ongoing care. - No evidence of active bleeding from the upper digestive tract, perhaps hematemesis was related to Natalie-Man tear - Would suggest low-dose omeprazole 40 mg/day for 4 to 6 weeks - Repeat upper endoscopy in 3 months for surveillance, biopsy of suspected fundic polyps. Erika Armando D.O. Erika Armando, 04/27/2020 12:33:22 PM This report has been signed electronically. Note Initiated On: 04/27/2020 12:14 PM Number of Addenda: 0 I attest to the content of the Intraoperative Record and orders documented therein, exceptions below {[id number]}
--- NOTE | 2020-04-27 12:41 | Communication Note ---
Date of Service: April 27, 2020 The patient underwent upper endoscopy this afternoon for suspected hematemesis. The upper endoscopy was normal aside from several small gastric polyps. Based on the history I wonder if the patient had a Natalie-Man tear as result of nausea and vomiting. Recommendations Continue therapy for suspected acute diverticulitis Consider sending stool for C. difficile Omeprazole 40 mg 1 time daily for 4 to 6 weeks We will recommend a repeat upper endoscopy and colonoscopy in 6 to 8 weeks after recovered from diverticulitis Please call with any questions or concerns during the remainder of the hospital admission
--- NOTE | 2020-04-27 12:46 | Anesthesiology Progress Note ---
Date of Service April 27, 2020 Anesthesia Post Procedure Vital Signs Vital Signs: Temp Pulse Pulse Resp BP BP Pulse Ox 04/27/20 11:22 36.5 C 62 16 137/73 95 04/27/20 07:08 36.6 C 56 L 16 129/77 98 04/26/20 23:51 112/70 04/26/20 23:08 36.7 C 59 L 16 148/77 H 98 04/26/20 18:36 36.9 C 58 L 14 173/82 H 98 04/26/20 18:35 36.9 C 58 L 14 173/82 H 98 04/26/20 18:08 58 L 16 133/88 99 04/26/20 17:17 59 L 16 137/96 97 04/26/20 16:12 59 L 20 144/86 H 99 04/26/20 14:54 63 61 18 138/105 H 99 Pain Intensity Abdomen: Pain Intensity: 6 Transfer of Care Handoff Completed per policy Notes Mental Status: alert / awake / arousable Patient Amnestic to Procedure: Yes Nausea / Vomiting: adequately controlled Pain: adequately controlled Airway Patency, RR, SpO2: stable & adequate BP & HR: stable & adequate Hydration State: stable & adequate Anesthetic Complications: no major complications apparent and Pt Satisfied with anesthetic care
[2020-04-27] MEDS: CIPROFLOXACIN / D5W 400 MG/200 ML BAG IV SCH ×2 (13:27→21:55)
[2020-04-27] MEDS: metroNIDAZOLE 500 MG/100 ML BAG IV SCH ×2 (13:27→21:54)
--- NOTE | 2020-04-27 17:49 | Hospitalist Progress Note ---
Date of Service April 27, 2020 Assessment & Plan (1) Bloody stool: (2) Hematemesis: per admitting [facility] [place] notes: -admit to med/surg -patient presenting from home with reports of hematemesis and BRBPR -history of recurrent similar symptoms in the past; gastric ulcer s/p clipping in 2018 -EGD 11/2018: gastritis, colonoscopy 11/2009: internal hemorrhoids -? diverticular bleed -start PPI IV BID due to reports of hematemesis -hgb and vitals stable -serial H/H -NPO -GI consult, case discussed with HUEY Conner 04/27 s/p EGD : unrevealing Hg stable at 13 obtain anemia panel clear liquids for now monitor (3) Diverticulitis: -CT abd/pelvis shows mild acute sigmoid diverticulitis -history of recurrent diverticulitis - afebrile unit tender to palpation on Cipro + Flagyl monitor (4) HTN (hypertension): -BP controlled, continue atenolol and lisinopril (5) DVT prophylaxis: -SCDs due to GI bleeding Admission and Anticipated Discharge Date Admission Date: April 26, 2020 Subjective ff up for hematemesis, etc seen resting in bed, comfortable oriented x 3 s/p EGD states he feels about the same as yesterday still has RLQ pain and tenderness, no BMs so far no nausea, hematemesis no chest pain, dyspnea, palpitations, dizziness, headache no fever/chills no other symptoms Review of Systems Review of Systems: All systems reviewed & are unremarkable except as noted in Subjective Physical Exam Physical Exam: General- oriented x 3, not in distress, speaks in sentences with no effort or accessory muscle use Head- atraumatic Eyes- PERRL, EOMI, anicteric ENT- oropharynx clear Neck- supple, no JVD, no adenopathy, no thyromegaly; carotids +2/2, no bruits appreciated Lungs- clear to auscultation bilaterally, no rales/wheezes Heart- normal rate, regular rhythm; no murmur, no gallop, no rub appreciated Abdomen- normal bowel sounds, nondistended, soft, (+) mild RLQ tenderness, no masses or hepatosplenomegaly Extremities- no pretibial edema, no calf tenderness; peripheral pulses intact Neuro- alert, oriented x 3; CN 2-12 grossly intact; motor 5/5 bilaterally;sensation 100% on all extremities; no other gross focal neurologic deficits Skin- warm & dry Results & Data Results & Data ([facility]) Vital Signs (Past 12 Hours) Vital Signs Temp Pulse Resp BP Pulse Ox 04/27/20 14:34 36.7 C 58 L 18 109/61 100 04/27/20 13:57 36.4 C L 52 L 14 131/75 99 04/27/20 13:20 36.5 C 54 L 14 138/78 98 04/27/20 13:04 54 L 16 119/60 98 04/27/20 12:48 56 L 16 123/51 L 97 04/27/20 12:33 67 16 112/57 L 96 04/27/20 11:22 36.5 C 62 16 137/73 95 04/27/20 07:08 36.6 C 56 L 16 129/77 98 Laboratory Results Laboratory Results - last 24 hr 04/26/20 04/27/20 04/27/20 18:53 00:12 05:26 WBC 5.40 RBC 4.46 L Hgb 14.5 13.5 L 13.2 L Hct 41.7 L 39.0 L 38.8 L MCV 87.0 MCH 29.6 MCHC 34.0 RDW Std Deviation 40.6 RDW Coeff of Kim 12.6 Plt Count 175 MPV 9.8 Sodium Potassium Chloride Carbon Dioxide Anion Gap BUN Creatinine Est Cr Clr Drug Dosing Est GFR ( Amer) Est GFR (Non-Af Amer) BUN/Creatinine Ratio Glucose Calcium 04/27/20 05:26 WBC RBC Hgb Hct MCV MCH MCHC RDW Std Deviation RDW Coeff of Kim Plt Count MPV Sodium 144 Potassium 3.7 Chloride 112 H Carbon Dioxide 29 Anion Gap 3.0 BUN 16 Creatinine 1.04 Est Cr Clr Drug Dosing 97.2 Est GFR ( Amer) 91.3 Est GFR (Non-Af Amer) 78.8 BUN/Creatinine Ratio 15.7 Glucose 82 Calcium 8.4 L (1) Hematemesis Nausea presence: unspecified Qualified Code(s): K92.0 - Hematemesis (2) HTN (hypertension) Hypertension type: unspecified Qualified Code(s): I10 - Essential (primary) hypertension
[2020-04-27 19:14] LABS: Hematocrit (blood only) 37.2 % (42-52); Hemoglobin 12.9 g/dL (14.0-18.0)
[2020-04-27] MEDS: SIMVASTATIN 10 MG TAB PO SCH (20:09)
[2020-04-28] MEDS: HYDROmorphone INJ 0.5 MG/0.5 ML SYR IV PRN ×6 (00:41→20:51)
[2020-04-28] MEDS: ONDANSETRON INJ 2 MG/ML 2 ML VIAL IV SCH ×4 (04:47→22:53)
[2020-04-28] MEDS: metroNIDAZOLE 500 MG/100 ML BAG IV SCH ×3 (04:48→22:52)
[2020-04-28] MEDS: oxyCODONE HCL IR 5 MG TAB (IMMEDIATE RELEASE) PO PRN ×4 (06:32→23:41)
[2020-04-28 07:15] LABS: Basophils # (auto) 0.02 K/uL (0-0.2); Basophils % (auto) 0.4 %; Eosinophils # (auto) 0.22 K/uL (0-0.5); Eosinophils % (auto) 4.9 %; Hematocrit (blood only) 35.9 % (42-52); Hemoglobin 12.3 g/dL (14.0-18.0); Lymphocytes # (auto) 1.04 K/uL (1.2-3.4); Mean Corpuscular Hemoglobin 29.6 pg (25-34); Mean Corpuscular Hgb Conc 34.3 g/dL (32-36); Mean Corpuscular Volume 86.3 fL (80-100); Mean Platelet Volume 9.8 fL (7.4-10.4); Monocytes # (auto) 0.44 K/uL (0.11-0.59); Monocytes % (auto) 9.7 %; Platelet Count 162 K/uL (130-400); RDW Coefficient of Variation 12.5 % (11.5-14.5); RDW Standard Deviation 39.4 fL (36.4-46.3); Red Blood Count 4.16 M/uL (4.7-6.1); White Blood Count 4.52 K/uL (4.8-10.8)
[2020-04-28 07:48] LABS: BUN Creatinine Ratio 9.4 (10-20); Calcium 8.7 mg/dl (8.5-10.1); Creatinine Clr Calc Pharmacy 103.2 ml/min; Est GFR (African American) 98.1; Est GFR (Non-African American) 84.6; Potassium 3.6 mmol/L (3.5-5.1)
[2020-04-28] MEDS: CIPROFLOXACIN / D5W 400 MG/200 ML BAG IV SCH ×2 (08:29→20:49)
[2020-04-28] MEDS: PANTOprazole 40 MG in SYRINGE 0 ML IV SCH (08:31)
[2020-04-28] MEDS: ATENOLOL 50 MG TABLET PO SCH (08:32)
[2020-04-28] MEDS: lisinopril 20 MG TAB PO SCH (08:32)
[2020-04-28] MEDS ORDERED: MAGNESIUM HYDROXIDE SUSP 30 ML UDC PO PRN (09:35)
[2020-04-28] MEDS: POLYETHYLENE (MIRALAX) 17 GM PACK PO SCH (10:36)
[2020-04-28] MEDS: ATENOLOL 25 MG TABLET PO SCH (10:36)
[2020-04-28] MEDS: SODIUM CHLORIDE 0.9% 1000ML 1,000 ML IV SCH (10:36)
--- NOTE | 2020-04-28 11:04 | Hospitalist Progress Note ---
Date of Service April 28, 2020 Assessment & Plan (1) Bloody stool: (2) Hematemesis: per admitting [facility] [place] notes: -admit to med/surg -patient presenting from home with reports of hematemesis and BRBPR -history of recurrent similar symptoms in the past; gastric ulcer s/p clipping in 2018 -EGD 11/2018: gastritis, colonoscopy 11/2009: internal hemorrhoids -? diverticular bleed -start PPI IV BID due to reports of hematemesis -hgb and vitals stable -serial H/H -NPO -GI consult, case discussed with HUEY Conner 04/28 s/p EGD : unrevealing Hg stable - obtain anemia panel advance diet to soft repeat CBC tomorrow monitor (3) Diverticulitis: -CT abd/pelvis shows mild acute sigmoid diverticulitis -history of recurrent diverticulitis - afebrile improving clinically on Cipro + Flagyl anticipate d/c home tomorrow on PO Abx (4) HTN (hypertension): -BP controlled, continue atenolol and lisinopril (5) DVT prophylaxis: -SCDs due to GI bleeding Admission and Anticipated Discharge Date Admission Date: April 26, 2020 Subjective Follow-up for hematemesis, acute diverticulitis, etc seen resting in bed, comfortable, not in distress no hematemesis no BM yet since yesterday R sided abdominal pain improving, no fever/chills ready for diet to be advanced no headache, dizziness, chest pain, palpitations, dyspnea no other symptoms Review of Systems Review of Systems: All systems reviewed & are unremarkable except as noted in Subjective Physical Exam Physical Exam: General- oriented x 3, not in distress, speaks in sentences with no effort or accessory muscle use Eyes- anicteric Neck- no JVD Lungs- clear BS BL Heart- normal rate, regular rhythm; no murmurs Abdomen- normal bowel sounds, nondistended, soft, minimal RLQ tenderness Extremities- no pretibial edema, no calf tenderness Neuro- alert, oriented x 3; no gross focal neurologic deficits Skin- warm & dry Results & Data Results & Data ([facility]) Vital Signs (Past 12 Hours) Vital Signs Temp Pulse Resp BP Pulse Ox 04/28/20 08:11 36.4 C L 59 L 16 138/76 96 Laboratory Results Laboratory Results - last 24 hr 04/27/20 04/28/20 04/28/20 18:07 06:59 06:59 WBC 4.52 L RBC 4.16 L Hgb 12.9 L 12.3 L Hct 37.2 L 35.9 L MCV 86.3 MCH 29.6 MCHC 34.3 RDW Std Deviation 39.4 RDW Coeff of Kim 12.5 Plt Count 162 MPV 9.8 Immature Gran % (Auto) 0.0 Neut % (Auto) 62.0 Lymph % (Auto) 23.0 [place] % (Auto) 9.7 Eos % (Auto) 4.9 Baso % (Auto) 0.4 Neut # (Auto) 2.80 Lymph # (Auto) 1.04 L [place] # (Auto) 0.44 Eos # (Auto) 0.22 Baso # (Auto) 0.02 Immature Gran # (Auto) 0.00 Sodium 143 Potassium 3.6 Chloride 112 H Carbon Dioxide 26 Anion Gap 5.0 BUN 9 D Creatinine 0.98 Est Cr Clr Drug Dosing 103.2 Est GFR ( Amer) 98.1 Est GFR (Non-Af Amer) 84.6 BUN/Creatinine Ratio 9.4 L Glucose 103 H Calcium 8.7 (1) Hematemesis Nausea presence: unspecified Qualified Code(s): K92.0 - Hematemesis (2) HTN (hypertension) Hypertension type: unspecified Qualified Code(s): I10 - Essential (primary) hypertension
[2020-04-28] MEDS: PANTOprazole 40 MG TAB PO SCH (20:50)
[2020-04-28] MEDS: SIMVASTATIN 10 MG TAB PO SCH (20:50)
[2020-04-29] MEDS: HYDROmorphone INJ 0.5 MG/0.5 ML SYR IV PRN ×2 (00:57→05:41)
[2020-04-29] MEDS: ONDANSETRON INJ 2 MG/ML 2 ML VIAL IV SCH ×2 (04:44→09:14)
[2020-04-29] MEDS: oxyCODONE HCL IR 5 MG TAB (IMMEDIATE RELEASE) PO PRN ×2 (04:44→10:47)
[2020-04-29] MEDS: metroNIDAZOLE 500 MG/100 ML BAG IV SCH (05:38)
[2020-04-29 06:30] LABS: Basophils # (auto) 0.02 K/uL (0-0.2); Basophils % (auto) 0.3 %; Eosinophils # (auto) 0.31 K/uL (0-0.5); Eosinophils % (auto) 5.1 %; Hematocrit (blood only) 37.2 % (42-52); Hemoglobin 12.9 g/dL (14.0-18.0); Lymphocytes # (auto) 1.02 K/uL (1.2-3.4); Lymphocytes % (auto) 16.8 %; Mean Corpuscular Hemoglobin 29.9 pg (25-34); Mean Corpuscular Hgb Conc 34.7 g/dL (32-36); Mean Corpuscular Volume 86.3 fL (80-100); Mean Platelet Volume 9.8 fL (7.4-10.4); Monocytes # (auto) 0.64 K/uL (0.11-0.59); Monocytes % (auto) 10.5 %; Neutrophils # (auto) 4.09 K/uL (1.4-6.5); Neutrophils % (auto) 67.3 %; Platelet Count 176 K/uL (130-400); RDW Coefficient of Variation 12.6 % (11.5-14.5); Red Blood Count 4.31 M/uL (4.7-6.1); White Blood Count 6.08 K/uL (4.8-10.8)
[2020-04-29 07:41] LABS: Folate (Folic Acid) 8.1 ng/ml (>5.38)
[2020-04-29] MEDS: POLYETHYLENE (MIRALAX) 17 GM PACK PO SCH (09:14)
[2020-04-29] MEDS: ATENOLOL 25 MG TABLET PO SCH (09:15)
[2020-04-29] MEDS: PANTOprazole 40 MG TAB PO SCH (09:15)
[2020-04-29] MEDS: CIPROFLOXACIN / D5W 400 MG/200 ML BAG IV SCH (09:15)
[2020-04-29] MEDS: lisinopril 20 MG TAB PO SCH (09:15)
--- NOTE | 2020-04-29 12:50 | Hospitalist Progress Note ---
Date of Service delayed entry date of service noted below April 29, 2020 Assessment & Plan (1) Bloody stool: (2) Hematemesis: Multiple Gastric Polyps Possible Natalie Julia Tear per admitting [facility] notes: -patient presenting from home with reports of hematemesis and BRBPR -history of recurrent similar symptoms in the past; gastric ulcer s/p clipping in 2018 -EGD 11/2018: gastritis, colonoscopy 11/2009: internal hemorrhoids -start PPI IV BID due to reports of hematemesis -hgb and vitals stable GI consulted s/p EGD Impression: - Normal esophagus. - Z-line regular, 40 cm from the incisors. - Multiple gastric polyps, biopsies not done due to recent hematemesis. - Normal incisura and antrum. - Normal examined duodenum. - No specimens collected. Recommendation: - Return patient to [facility] for [facility]. - No evidence of active bleeding from the upper digestive tract, perhaps hematemesis was related to Natalie-Man tear - Would suggest low-dose omeprazole 40 mg/day for 4 to 6 weeks - Repeat upper endoscopy in 3 months for surveillance, biopsy of suspected fundic polyps. Hg stable - repeat CBC on ff up with PCP (3) Diverticulitis: -CT abd/pelvis shows mild acute sigmoid diverticulitis -history of recurrent diverticulitis - afebrile significantly improved given IV Cipro + Flagyl discharge on PO Cipro + Flagyl PO to complete 10 days course (4) HTN (hypertension): -BP controlled, continue atenolol and lisinopril (5) DVT prophylaxis: -SCDs due to GI bleeding Disposition d/c home ff up with PCP in 1 week repeat EGD and Colonoscopy as outpatient Admission and Anticipated Discharge Date Admission Date: April 26, 2020 Subjective ff up for acute diverticulitis etc seen resting in bed, comfortable in good spirits states he feels much better overall very minimal RLQ discomfort no nausea, chills, tolerating diet well no chest pain, dyspnea, palpitations, dizziness no other symptoms states he is ready for discharge Review of Systems Review of Systems: All systems reviewed & are unremarkable except as noted in Subjective Physical Exam Physical Exam: General- oriented x 3, not in distress, speaks in sentences with no effort or accessory muscle use Eyes- anicteric Neck- no JVD Lungs- clear breath sounds bilaterally, no rales/wheezes Heart- normal rate, regular rhythm; no murmurs Abdomen- normal bowel sounds, nondistended, soft, no tenderness Extremities- no pretibial edema, no calf tenderness Neuro- alert, oriented x 3; no gross focal neurologic deficits Skin- warm & dry Results & Data Results & Data ([facility]) Vital Signs (Past 12 Hours) Vital Signs Temp Pulse Resp BP Pulse Ox 04/29/20 07:45 36.6 C 74 16 145/86 H 98 all noted and reviewed including below (1) Hematemesis Nausea presence: unspecified Qualified Code(s): K92.0 - Hematemesis (2) HTN (hypertension) Hypertension type: unspecified Qualified Code(s): I10 - Essential (primary) hypertension
[2020-04-29] MEDS ORDERED: oxyCODONE HCL IR 5 MG TAB (IMMEDIATE RELEASE) PO PRN (14:45)
--- NOTE | 2020-05-04 08:56 | Discharge Summary ---
Date of Service May 04, 2020 Admission HPI Per Admitting Provider 59 year old male with PMH HTN, recurrent diverticulitis, PUD, chronic pain And other problems listed below who presents to the ED for evaluation of abdominal pain, hematemesis, bloody bowel movements. Patient reports that around midnight last night he had a bowel movement with bright red blood. He had another this morning however blood was darker in color. He then developed nausea and vomiting with bright red blood. He reports 3 episodes of hematemesis. He has had crampy abdominal pain for the past few days. He reports pain is located on both sides of the abdomen, more pronounced in the left lower quadrant. Denies fever and chills. Reports he otherwise has been feeling well recently. No chest pain or shortness of breath. Denies lightheadedness, dizziness, diaphoresis, and syncopal events. No urinary symptoms. In the ED, hgb stable at 14.8. CT abd/pelvis shows very subtle acute sigmoid diverticulitis. Patient is hemodynamically stable. Patient was given IV famotidine, IV morphine, IV zofran, IV protonix, IV Zosyn. Admission Exam Per Admitting Provider Constitutional: WD/WN, vitals as above Eyes: PERRL, conjunctivae normal, anicteric sclerae ENMT: external ear and nose normal, oropharynx normal Respiratory: normal respiratory effort, lungs clear to auscultation Cardiovascular: Rate/Rhythm: regular rate and regular rhythm Vessels: normal peripheral pulses Extremities: no edema Gastrointestinal (Abdomen): Inspection/Auscultation: + abdomen distended and normal bowel sounds Percussion/Palpation: + abdomen tender (diffusely tender, more pronounced in the LLQ) and abdomen soft; no hepatosplenomegaly Musculoskeletal: no cyanosis or clubbing, extremities motor strength 5/5 Skin: no rashes, warm and dry Neurologic: PERRL, EOMI, accommodation nl, no face palsy, no dysarthria Psychiatric: A+Ox3, euthymic affect Principal Diagnosis EPISODE OF HEMATEMESIS ACUTE DIVERTICULITIS Discharge Exam Constitutional: WD/WN, vitals as above Eyes: PERRL, conjunctivae normal, anicteric sclerae ENMT: external ear and nose normal, oropharynx normal Respiratory: normal respiratory effort, lungs clear to auscultation Cardiovascular: Rate/Rhythm: regular rate and regular rhythm Vessels: normal peripheral pulses Extremities: no edema Gastrointestinal (Abdomen): Inspection/Auscultation: + abdomen distended and normal bowel sounds Percussion/Palpation: + abdomen tender (diffusely tender, more pronounced in the LLQ) and abdomen soft; no hepatosplenomegaly Musculoskeletal: no cyanosis or clubbing, extremities motor strength 5/5 Skin: no rashes, warm and dry Neurologic: PERRL, EOMI, accommodation nl, no face palsy, no dysarthria Psychiatric: A+Ox3, euthymic affect Discharge Data Allergies Allergy/AdvReac Type Severity Reaction Status Date / Time ketorolac Allergy Severe SHORTNESS Verified 04/27/20 11:18 OF BREATH,RASH Consultations 04/26/20 15:47 ED Decision to Admit Stat 04/26/20 18:34 Consult Gastroenterology Routine Procedures Performed Operation Date: 04/27/20 17:15 Actual Procedures p Esophagogastroduodenoscopy - Erika Armando DO DICTATED BY: Erika Armando DO Patient Name: Patrice Cr Procedure Date: 04/27/2020 12:14 PM Date of : 1960 Admit Type: Inpatient Age: 59 Gender: Male Attending MD: Erika Armando DO Procedure: Upper GI endoscopy Providers: Erika Armando DO Referring MD: Carlos A Ybarra Indications: Hematemesis Medicines: Monitored Anesthesia Care Complications: No immediate complications. Estimated blood loss: Minimal. Estimated Blood Loss: Estimated blood loss was minimal. Procedure: Pre-Anesthesia Assessment: - Prior to the procedure, a History and Physical was performed, and patient medications, allergies and sensitivities were reviewed. The patient's tolerance of previous anesthesia was reviewed. - The risks and benefits of the procedure and the sedation options and risks were discussed with the patient. All questions were answered and informed consent was obtained. - Patient identification and proposed procedure were verified prior to the procedure by the physician, the nurse and the change management facilitator. The procedure was verified in the procedure room. - Pre-procedure physical examination revealed no contraindications to sedation. - ASA Grade Assessment: III - A patient with severe systemic disease. - After reviewing the risks and benefits, the patient was deemed in satisfactory condition to undergo the procedure. - The anesthesia plan was to use monitored anesthesia care (MAC). - Immediately prior to administration of medications, the patient was re-assessed for adequacy to receive sedatives. - The heart rate, respiratory rate, oxygen saturations, blood pressure, adequacy of pulmonary ventilation, and response to care were monitored throughout the procedure. - The physical status of the patient was re-assessed after the procedure. After obtaining informed consent, the endoscope was passed under direct vision. Throughout the procedure, the patient's blood pressure, pulse, and oxygen saturations were monitored continuously. The Endoscope was introduced through the mouth, and advanced to the third part of duodenum. The upper GI endoscopy was accomplished without difficulty. The patient tolerated the procedure well. Findings: The examined esophagus was normal. The Z-line was regular and was found 40 cm from the incisors. Multiple 4 to 8 mm semi-sessile polyps with no bleeding and no stigmata of recent bleeding were found in the gastric fundus and in the gastric body. The incisura and gastric antrum were normal. The examined duodenum was normal. Impression: - Normal esophagus. - Z-line regular, 40 cm from the incisors. - Multiple gastric polyps, biopsies not done due to recent hematemesis. - Normal incisura and antrum. - Normal examined duodenum. - No specimens collected. Recommendation: - Return patient to [facility] for ongoing care. - No evidence of active bleeding from the upper digestive tract, perhaps hematemesis was related to Natalie-Man tear - Would suggest low-dose omeprazole 40 mg/day for 4 to 6 weeks - Repeat upper endoscopy in 3 months for surveillance, biopsy of suspected fundic polyps. Erika Armando D.O. Erika Armando, DO 04/27/2020 12:33:22 PM This report has been signed electronically. Note Initiated On: 04/27/2020 12:14 PM Number of Addenda: 0 I attest to the content of the Intraoperative Record and orders documented therein, exceptions below Ordered Studies 04/26/20 13:56 CT abd pelvis wo con Stat COMPARISON STUDY: July 2019 TECHNIQUE: CT scan of the abdomen and pelvis was performed from the lung bases to the proximal femurs. Images are reviewed in the axial, sagittal, and coronal planes. IV contrast was not administered for this examination. A dose lowering technique was utilized adhering to the principles of ALARA. CT DOSE: 1720.36 mGy.cm FINDINGS: Lower chest: The heart is normal in size and configuration, without pericardial effusion. The lung bases and pleural spaces are clear. Liver: The unenhanced liver is normal in size, contour, and attenuation. There is no intrahepatic biliary ductal dilatation. Gallbladder: Surgically absent Spleen: The spleen is mildly elongated. Pancreas: Unremarkable. Adrenal glands: There is a stable 13 mm right adrenal nodule likely representing an adenoma Kidneys: The unenhanced kidneys are normal in size without hydronephrosis. There is no contour deforming renal mass lesion. No renal calculi are identified. Bowel: There are no transition zones indicate bowel obstruction. There is colonic diverticulosis. There are very minimal peridiverticular inflammatory changes within the sigmoid suggesting minimal diverticulitis. There are no fluid collections to indicate an abscess. There is no extraluminal gas. Peritoneum: There is no intraperitoneal free air or abdominal ascites. Vasculature: The abdominal aorta is normal in course and caliber. Adenopathy: None. Pelvic viscera: There are prostatic calcifications present. Skeletal structures: There is a total right hip arthroplasty. No destructive skeletal lesions are visualized. IMPRESSION: 1. Very subtle acute sigmoid diverticulitis. No evidence of peridiverticular abscess 2. No evidence of bowel obstruction. No evidence of free air. ACT 112: Negative or not required by law. Hospital Course (1) Bloody stool: (2) Hematemesis: Multiple Gastric Polyps Possible Natalie Julia Tear per admitting [facility] notes: -patient presenting from home with reports of hematemesis and BRBPR -history of recurrent similar symptoms in the past; gastric ulcer s/p clipping in 2018 -EGD 11/2018: gastritis, colonoscopy 11/2009: internal hemorrhoids -start PPI IV BID due to reports of hematemesis -hgb and vitals stable GI consulted s/p EGD Impression: - Normal esophagus. - Z-line regular, 40 cm from the incisors. - Multiple gastric polyps, biopsies not done due to recent hematemesis. - Normal incisura and antrum. - Normal examined duodenum. - No specimens collected. Recommendation: - Return patient to [facility] for ongoing care. - No evidence of active bleeding from the upper digestive tract, perhaps hematemesis was related to Natalie-Man tear - Would suggest low-dose omeprazole 40 mg/day for 4 to 6 weeks - Repeat upper endoscopy in 3 months for surveillance, biopsy of suspected fundic polyps. Hg stable 12-13 repeat CBC on ff up with PCP (3) Diverticulitis: -CT abd/pelvis shows mild acute sigmoid diverticulitis -history of recurrent diverticulitis - afebrile significantly improved given IV Cipro + Flagyl discharge on PO Cipro + Flagyl PO to complete 10 days course (4) HTN (hypertension): -BP controlled - Atenolol reduced from 50 to 25mg po daily - continue Lisinopril (5) Adrenal adenoma: seen on CT Abd/pelvis Adrenal glands: There is a stable 13 mm right adrenal nodule likely representing an adenoma Further work up, management, and ff up as outpatient (6) DVT prophylaxis: -SCDs due to GI bleeding Disposition d/c home ff up with PCP in 1 week repeat EGD and Colonoscopy as outpatient Total Time Total Time Spent Total Time Spent (In Minutes): > 30 minutes Discharge Plan Discharge Items Patient Disposition: Home - Self-Care Reason For Visit: DIVERTICULITIS Discharge Diagnosis: ACUTE DIVERTICULITIS Condition on Discharge: Good Activity: Resume your previous activity Driving/Machine Use: NO DRIVING IF WITH SIGNIFICANT ABDOMINAL PAIN. Non-emergency contact: Primary Care Provider Call non-emergency contact if: you have any medication questions, your symptoms worsen, your pain is not controlled, your pain is worsening, your pain is unusual for you, your pain is concerning for you and you have a fever Follow-up/Referrals: Erika Armando DO [Physician] - PCP,NO [Primary Care Provider] - Diet: Heart Healthy Addtl Attending Provider Instructions: PLEASE REVIEW YOUR NEW MEDICATION LIST AND FOLLOW INSTRUCTIONS CAREFULLY. CIPROFLOXACIN AND FLAGYL- ANTIBIOTICS FOR DIVERTICULITIS INCREASE OMEPRAZOLE TO 40MG DAILY X 4-6 WEEKS. REDUCE ATENOLOL TO 25MG PO DAILY TAKE A PROBIOTIC DAILY FOR AT LEAST 2 WEEKS. DRINK PLENTY OF FLUIDS. CALL PRIMARY CARE PHYSICIAN OR RETURN TO THE ER IMMEDIATELY IF WITH WORSENING OF SYMPTOMS. FOLLOW UP WITH YOUR PRIMARY CARE PHYSICIAN IN [address]LLOW UP WITH DR. ARMANDO- [facility] [employer] [facility]- IN 4-6 WEEKS FOR COLONOSCOPY AND 3 MONTHS FOR REPEAT UPPER GI ENDOSCOPY- FOR SURVEILLANE AND BIOPSY OF STOMACH POLYPS. Pending Studies at Discharge: Yes Studies:: REPEAT BLOOD WORK - COMPLETE BLOOD COUNT- ON FOLLOW UP VISIT WITH PRIMARY CARE PHYSICIAN Stand-Alone Forms: My [employer], Opioid Pain Management, Work/School Release (Inpt), Smoking Cessation Medications and DC Order Prescriptions: New ciprofloxacin HCl [Cipro] 500 mg tablet 500 mg PO Q12H Qty: 14 RF: 0 metronidazole [Flagyl] 500 mg tablet 500 mg PO Q8H Qty: 21 RF: 0 omeprazole 40 mg capsule,delayed release(DR/EC) 40 mg PO DAILY Qty: 30 RF: 1 Continued lisinopril 20 mg Tablet 20 mg PO QAM RF: 0 simvastatin 10 mg Tablet 10 mg PO HS RF: 0 Changed atenolol 50 mg Tablet 25 mg PO QAM Qty: 0 RF: 0 Discontinued omeprazole 20 mg Capsule,Delayed Release(Dr/Ec) 20 mg PO DAILYBB RF: 0 Discharge Orders: Discharge Order (Routine); Ordered 04/29/20 Ordered By: Carlos A Palmer/Other Patient Handouts: Diverticulosis Diverticulitis Admission Data Admit Date/Time: 04/26/20 16:53 Attending Provider: Carlos A Ybarra Admit Provider: Kenisha Abad Primary Care Provider: PCP,NO Other Providers: Kenisha Abad ; Maco Guerrero Other Interventions: Discharge Summary Assessment (RN) Last Done: 04/29/20 12:54
== END 2020-04-29 13:56 | disposition home or self-care (01) | DRG 379 ==
LOC: ED 12:07 → 3W 16:53 → SUATTDRO 16:53 → 3W 18:08

== ENCOUNTER 2020-10-11 15:22 | Inpatient (IN) ==
[2020-10-11 16:12] LABS: Appearance Urine Clear (Clear); Bacteria Urine Automated Negative (Negative); Bilirubin Urine Negative (Negative); Blood Urine Negative (Negative); Cast Urine Automated 0 /lpf (0-5); Color Urine Yellow; Epithelial Cell Urine Auto 0-5 /lpf (0-5); Glucose Urine UA Negative (Negative); Ketones Urine Negative (Negative); Leukocyte Esterase Urine Trace (Negative); Nitrite Urine Negative (Negative); Protein Urine Negative (Negative); RBC Urine Automated 0-4 /hpf (0-4); Specific Gravity Urine 1.006 (1.000-1.030); Urobilinogen Urine Negative (Negative); pH Urine 6.5 (4.5-7.5)
[2020-10-11 16:14] LABS: Basophils # (auto) 0.02 K/uL (0-0.2); Basophils % (auto) 0.4 %; Eosinophils # (auto) 0.18 K/uL (0-0.5); Eosinophils % (auto) 3.2 %; Hematocrit (blood only) 42.1 % (42-52); Hemoglobin 14.8 g/dL (14.0-18.0); Immature Granulocytes # (auto) 0.01 K/uL (0.00-0.02); Immature Granulocytes % (auto) 0.2 %; Lymphocytes # (auto) 1.12 K/uL (1.2-3.4); Lymphocytes % (auto) 20.1 %; Mean Corpuscular Hemoglobin 30.4 pg (25-34); Mean Corpuscular Hgb Conc 35.2 g/dL (32-36); Mean Corpuscular Volume 86.4 fL (80-100); Mean Platelet Volume 9.3 fL (7.4-10.4); Monocytes # (auto) 0.49 K/uL (0.11-0.59); Monocytes % (auto) 8.8 %; Neutrophils # (auto) 3.75 K/uL (1.4-6.5); Neutrophils % (auto) 67.3 %; Platelet Count 187 K/uL (130-400); RDW Coefficient of Variation 12.4 % (11.5-14.5); RDW Standard Deviation 39.7 fL (36.4-46.3); Red Blood Count 4.87 M/uL (4.7-6.1); White Blood Count 5.57 K/uL (4.8-10.8)
--- NOTE | 2020-10-11 16:22 | XRay Report ---
XR chest 1V portable HISTORY: 60 years-old Male Chest Pain acute atypical chest pain COMPARISON: Chest radiograph 04/26/2020 TECHNIQUE: Portable AP view of the chest FINDINGS: Cardiac mediastinal and hilar silhouettes are within normal limits. No pneumothorax, pleural effusion , airspace consolidation or overt pulmonary edema. Bones of the chest appear grossly intact. IMPRESSION: No acute process. ACT 112: Negative or not required by law. The above report was generated using voice recognition software. It may contain grammatical, syntax o r spelling errors. Electronically signed by: Yoandy Batres M.D. 10/11/2020 4:21 PM
[2020-10-11 16:25] LABS: INR 1.1 (0.9-1.1); Partial Thromboplastin Time 25.4 Seconds (21.0-31.0); Prothrombin Time 11.4 Seconds (9.0-12.0)
--- NOTE | 2020-10-11 16:25 | Electrocardiogram Report ---
Test Reason : Blood Pressure : / mmHG Vent. Rate : 092 BPM Atrial Rate : 092 BPM P-R Int : 146 ms QRS Dur : 106 ms QT Int : 360 ms P-R-T Axes : 039 -34 062 degrees QTc Int : 445 ms Normal sinus rhythm Left axis deviation Abnormal ECG When compared with ECG of 26-APR-2020 12:16, No significant change was found Confirmed by Bryan Sotelo ([id number]) on 10/11/2020 4:24:27 PM Referred By: Confirmed By:Bryan Sotelo
[2020-10-11 16:35] LABS: Alanine Aminotransferase 36 U/L (12-78); Albumin Level 4.4 gm/dl (3.4-5.0); Aspartate Aminotransferase 10 U/L (15-37); Blood Urea Nitrogen 13 mg/dl (7-18); Calcium 8.9 mg/dl (8.5-10.1); Carbon Dioxide 25 mmol/L (21-32); Chloride 114 mmol/L (98-107); Creatinine Clr Calc Pharmacy 102.3 ml/min; Est GFR (African American) 97.4 ml/min; Est GFR (Non-African American) 84.1 ml/min; Glucose 71 mg/dl (70-99); Potassium 3.8 mmol/L (3.5-5.1); Sodium 142 mmol/L (136-145)
[2020-10-11 16:39] LABS: Albumin Globulin Ratio 1.4 (0.9-2); Alkaline Phosphatase 72 U/L (45-117); Bilirubin,Total 0.4 mg/dl (0.2-1); Globulin 3.1 gm/dl (2.5-4.0); Total Protein 7.5 gm/dl (6.4-8.2); Troponin I < 0.015 ng/ml (0-0.045)
[2020-10-11] MEDS ORDERED: ONDANSETRON INJ 2 MG/ML 2 ML VIAL IV STA (16:54)
--- NOTE | 2020-10-11 16:54 | Emergency Department Note ---
Impression & Plan Chest pain, Generalized abdominal pain ED Provider Note INFORMANT: Patient ED PROVIDER(S): René Barbosa MD CHIEF COMPLAINT: Chest and abdominal pain PLAN: Disposition: Admitted Condition: Good Outpatient prescription management: none Referral: None patient presented complaining of chest pain and abdominal pain. MEDICAL DECISION MAKING: His ECG revealed a normal sinus rhythm without acute ischemic change. The patient's blood work showed an unremarkable CBC, coags, chemistry panel, LFTs and troponin. The patient urinalysis was negative. Chest x-ray was negative. The patient underwent CT imaging of the chest abdomen pelvis to evaluate for dissection and other pathology. No dissection was noted. He was found to have diverticulosis without diverticulitis. He was treated with IV Dilaudid and Zofran for his symptoms. The patient has a concerning family cardiac history. He and I discussed a rule out in the hospital. The patient was in agreement. [facility] The patient was evaluated in the ER for further management. Triage Nursing notes reviewed and agree them. Vital Signs: reviewed and remarkable for no significant abnormalities Differential diagnosis: Cardiac ischemia, aortic dissection, pulmonary embolism, pneumothorax, pneumonia, pericarditis, myocarditis, esophageal rupture, GERD, cholecystitis, pancreatitis, musculoskeletal, as well as other pathologies. Diagnostics interpreted by me: ECG: Rate: 92 Rhythm:Normal sinus [place]:Normal QRS:Normal ST segements:No elevation or depression Other:No PACs or PVCs Cardiac Monitoring: Cardiac monitoring ordered by me: The patient was placed on continuous cardiac monitoring and observed. It revealed a normal sinus rhythm at 87 beats per minute without ectopy or evidence of dysrhythmia. Imaging studies: Chest x-ray. Findings: A chest x-ray was performed and revealed no pneumothorax, effusion, infiltrate, pulmonary edema, free air under the diaphragm, or wide mediastinum. Impression: No acute disease. CT scans of the chest abdomen pelvis for dissection did not reveal any evidence of acute intra-abdominal pathology. I refer you to the EMR for further details. HPI: The patient is a 60 year old male who presents to the Emergency Room with complaints of chest pain. This started today and is pressure, mid chest. The patient also notes the following associated symptoms, left arm pain, jaw pain, sweating, sob, abdominal pain, headache, blurry vision, blood in stool, blood in urine. The patient has found no relieving factors. Current pain is rated as 9/10. Family hx of CAD. Hx of diverticulitis. Pt denies LOC, headache, fevers, chills, neck pain, chest pain, breathing difficulties, vomiting, back pain, melena, urinary symptoms, numbness, weakness, lymphadenopathy, rash, or other complaints. ROS: See above HPI for pertinent positives & negatives. A total of 10 systems reviewed and were otherwise negative. PAST MEDICAL HISTORY:See Below , diverticulitis PAST SURGICAL HISTORY:See Below, FAMILY HISTORY:See Below, CAD SOCIAL HISTORY:See Below, no tobacco HOME MEDICATIONS:See Below ALLERGIES:See Below VITALS:See Below PHYSICAL EXAMINATION: GENERAL: Awake, alert, well-appearing, in no distress HENT: Normocephalic, atraumatic. Oropharynx unremarkable. EYES: Normal conjunctiva. Sclera non-icteric. NECK: Inspection normal. Non-tender. Supple. No nuchal rigidity. FROM. No masses. RESPIRATORY: Clear to auscultation. No wheezes. No rales. Normal respiratory effort. CARDIAC: Normal rate. Normal rhythm. No murmurs. No rubs. Extremities warm and well perfused. Pulses equal. No JVD. GI: Soft, non-distended. No tenderness to palpation. No rebound or guarding. No masses. RECTAL: Deferred. MUSCULOSKELETAL: Atraumatic. Chest examination reveals no tenderness. The back i s symmetrical on inspection without obvious abnormality. There is left CVA tenderness to palpation. No joint edema. LOWER EXTREMITIES: Calves are equal size bilaterally and non-tender. No edema. No discoloration. NEURO: Normal sensorium. No sensory or motor deficits noted. SKIN: No rash or jaundice noted. René Barbosa MD Past Med/Surg History Medical History Acute GI bleeding Avascular necrosis of bone of right hip s/p recent replacement at [facility] CAD (coronary artery disease) Diverticulitis GERD (gastroesophageal reflux disease) HTN (hypertension) Osteoarthritis PUD (peptic ulcer disease) 2018 - gastric ulcer that required clipping Surgical History H/O vasectomy History of total right knee replacement S/P appendectomy S/P cholecystectomy S/P knee replacement S/P tonsillectomy Family History Father Coronary heart disease T2DM (type 2 diabetes mellitus) Mother Pancreatic cancer Hypertension Social History Smoking Status: Never smoker Second Hand Exposure: Yes; Hx Alcohol Use: No Hx Substance Use: No Preferred Language: Australian Communication Ability: Effective Real Property Appraiser Required: No Beliefs That Will Affect Care: None marital status: Current Living Situation: Significant Other Current Living Situation Comment: Girl friend Feels Safe at Home: Yes Assistive Devices: None and Glasses Allergies Allergies Allergy/AdvReac Type Severity Reaction Status Date / Time ketorolac Allergy Severe SHORTNESS Verified 10/11/20 17:32 OF BREATH,RASH Home Meds Home Medications Medication Instructions Recorded Confirmed lisinopril 20 mg tablet 20 mg PO QAM 03/16/18 10/11/20 simvastatin 10 mg tablet 10 mg PO HS 04/26/20 10/11/20 aspirin 81 mg tablet,delayed 81 mg PO DAILY 10/11/20 10/11/20 release omeprazole 40 mg capsule,delayed 40 mg PO DAILYBB 10/11/20 10/11/20 release oxycodone 5 mg tablet 5 mg PO Q6H PRN 10/11/20 10/11/20 Results & Data (ED) Vital Signs Vital Signs - 24 hr 10/11/20 15:42 10/11/20 16:44 10/11/20 17:28 Temperature 36.8 C Temperature Source Oral Pulse Rate 89 78 Pulse Rate [Apical] Pulse Rate from SpO2 Sensor Respiratory Rate 18 16 Respiratory Effort / Characteristics Respiratory Depth Blood Pressure 139/88 145/86 H Blood Pressure [Left Arm] Blood Pressure Mean 105 105 Blood Pressure Mean [Left Arm] Blood Pressure Position [Left Arm] Pulse Oximetry 99 98 Oxygen Delivery Method Room Air Room Air Room Air Sepsis Recent Fever Within 48 Hours No Sepsis New/Unexplained Change in Mental Status No Sepsis Action Taken by Nursing No Action Required 10/11/20 17:30 10/11/20 19:00 Temperature Temperature Source Pulse Rate 87 Pulse Rate [Apical] 87 Pulse Rate from SpO2 Sensor 88 Respiratory Rate 19 20 Respiratory Effort / Characteristics Non-Labored Spontaneous Respiratory Depth Normal Blood Pressure 153/91 H Blood Pressure [Left Arm] 155/90 H Blood Pressure Mean 111 Blood Pressure Mean [Left Arm] 111 Blood Pressure Position [Left Arm] Sitting Pulse Oximetry 98 98 Oxygen Delivery Method Room Air Room Air Sepsis Recent Fever Within 48 Hours Sepsis New/Unexplained Change in Mental Status Sepsis Action Taken by Nursing Laboratory Data Result diagrams: 10/11/20 15:52 10/11/20 15:52 Lab Results 10/11/20 10/11/20 10/11/20 Range/Units 15:52 15:52 15:52 WBC 5.57 (4.8-10.8) K/uL RBC 4.87 (4.7-6.1) M/uL Hgb 14.8 (14.0-18.0) g/dL Hct 42.1 (42-52) % MCV 86.4 (80-100) fL MCH 30.4 (25-34) pg MCHC 35.2 (32-36) g/dL RDW Std Deviation 39.7 (36.4-46.3) fL RDW Coeff of Kim 12.4 (11.5-14.5) % Plt Count 187 (130-400) K/uL MPV 9.3 (7.4-10.4) fL Immature Gran % (Auto) 0.2 % Neut % (Auto) 67.3 % Lymph % (Auto) 20.1 % [place] % (Auto) 8.8 % Eos % (Auto) 3.2 % Baso % (Auto) 0.4 % Neut # (Auto) 3.75 (1.4-6.5) K/uL Lymph # (Auto) 1.12 L (1.2-3.4) K/uL [place] # (Auto) 0.49 (0.11-0.59) K/uL Eos # (Auto) 0.18 (0-0.5) K/uL Baso # (Auto) 0.02 (0-0.2) K/uL Immature Gran # (Auto) 0.01 (0.00-0.02) K/uL PT 11.4 (9.0-12.0) Seconds INR 1.1 (0.9-1.1) APTT 25.4 (21.0-31.0) Seconds PTT Ratio 1.0 Sodium 142 (136-145) mmol/L Potassium 3.8 (3.5-5.1) mmol/L Chloride 114 H (98-107) mmol/L Carbon Dioxide 25 (21-32) mmol/L Anion Gap 3.0 (3-11) BUN 13 (7-18) mg/dl Creatinine 0.98 (0.6-1.4) mg/dl Est Cr Clr Drug Dosing 102.3 ml/min Est GFR ( Amer) 97.4 ml/min Est GFR (Non-Af Amer) 84.1 ml/min BUN/Creatinine Ratio 13.0 (10-20) Glucose 71 (70-99) mg/dl Calcium 8.9 (8.5-10.1) mg/dl Total Bilirubin 0.4 (0.2-1) mg/dl AST 10 L (15-37) U/L ALT 36 (12-78) U/L Alkaline Phosphatase 72 (45-117) U/L Troponin I < 0.015 (0-0.045) ng/ml Total Protein 7.5 (6.4-8.2) gm/dl Albumin 4.4 (3.4-5.0) gm/dl Globulin 3.1 (2.5-4.0) gm/dl Albumin/Globulin Ratio 1.4 (0.9-2) Urine Color Urine Appearance (Clear) Urine pH (4.5-7.5) Ur Specific [place] (1.000-1.030) Urine Protein (Negative) Urine Glucose (UA) (Negative) Urine Ketones (Negative) Urine Blood (Negative) Urine Nitrite (Negative) Urine Bilirubin (Negative) Urine Urobilinogen (Negative) Ur Leukocyte Esterase (Negative) Urine WBC (Auto) (0-5) /hpf Urine RBC (Auto) (0-4) /hpf U Hyaline Cast (Auto) (0-5) /lpf U Epithel Cells (Auto) (0-5) /lpf Urine Bacteria (Auto) (Negative) COVID-19 Eval Order 10/11/20 10/11/20 Range/Units 16:00 19:10 WBC (4.8-10.8) K/uL RBC (4.7-6.1) M/uL Hgb (14.0-18.0) g/dL Hct (42-52) % MCV (80-100) fL MCH (25-34) pg MCHC (32-36) g/dL RDW Std Deviation (36.4-46.3) fL RDW Coeff of Kim (11.5-14.5) % Plt Count (130-400) K/uL MPV (7.4-10.4) fL Immature Gran % (Auto) % Neut % (Auto) % Lymph % (Auto) % [place] % (Auto) % Eos % (Auto) % Baso % (Auto) % Neut # (Auto) (1.4-6.5) K/uL Lymph # (Auto) (1.2-3.4) K/uL [place] # (Auto) (0.11-0.59) K/uL Eos # (Auto) (0-0.5) K/uL Baso # (Auto) (0-0.2) K/uL Immature Gran # (Auto) (0.00-0.02) K/uL PT (9.0-12.0) Seconds INR (0.9-1.1) APTT (21.0-31.0) Seconds PTT Ratio Sodium (136-145) mmol/L Potassium (3.5-5.1) mmol/L Chloride (98-107) mmol/L Carbon Dioxide (21-32) mmol/L Anion Gap (3-11) BUN (7-18) mg/dl Creatinine (0.6-1.4) mg/dl Est Cr Clr Drug Dosing ml/min Est GFR ( Amer) ml/min Est GFR (Non-Af Amer) ml/min BUN/Creatinine Ratio (10-20) Glucose (70-99) mg/dl Calcium (8.5-10.1) mg/dl Total Bilirubin (0.2-1) mg/dl AST (15-37) U/L ALT (12-78) U/L Alkaline Phosphatase (45-117) U/L Troponin I (0-0.045) ng/ml Total Protein (6.4-8.2) gm/dl Albumin (3.4-5.0) gm/dl Globulin (2.5-4.0) gm/dl Albumin/Globulin Ratio (0.9-2) Urine Color Yellow Urine Appearance Clear (Clear) Urine pH 6.5 (4.5-7.5) Ur Specific [place] 1.006 (1.000-1.030) Urine Protein Negative (Negative) Urine Glucose (UA) Negative (Negative) Urine Ketones Negative (Negative) Urine Blood Negative (Negative) Urine Nitrite Negative (Negative) Urine Bilirubin Negative (Negative) Urine Urobilinogen Negative (Negative) Ur Leukocyte Esterase Trace H (Negative) Urine WBC (Auto) 1-5 (0-5) /hpf Urine RBC (Auto) 0-4 (0-4) /hpf U Hyaline Cast (Auto) 0 (0-5) /lpf U Epithel Cells (Auto) 0-5 (0-5) /lpf Urine Bacteria (Auto) Negative (Negative) COVID-19 Eval Order Covid19 at [facility] Administered Medications Hydromorphone HCl (Hydromorphone Inj 0.5 Mg/0.5 Ml Syr) 0.5 mg IV Q15M PRN PRN Reason: Pain Stop: 10/25/20 16:53 Last Admin: 10/11/20 19:51 Dose: 0.5 mg Documented by: [id number] Admin: 10/11/20 19:06 Dose: 0.5 mg Documented by: [id number] Admin: 10/11/20 18:20 Dose: 0.5 mg Documented by: [id number] Admin: 10/11/20 17:27 Dose: 0.5 mg Documented by: [id number] Discontinued Medications Ioversol (Optiray 320 125ml) 118 ml IV ONCE ONE Stop: 10/11/20 17:53 Last Admin: 10/11/20 17:52 Dose: 118 ml Documented by: [id number] Ondansetron HCl (Ondansetron Inj 2 Mg/Ml 2 Ml Vial) 4 mg IV NOW STA Stop: 10/11/20 16:55 Last Admin: 10/11/20 17:26 Dose: 4 mg Documented by: [id number] Imaging Data Radiologist's Impression: Chest X-Ray 10/11/20 15:47 XR chest 1V portable HISTORY: 60 years-old Male Chest Pain acute atypical chest pain COMPARISON: Chest radiograph 04/26/2020 TECHNIQUE: Portable AP view of the chest FINDINGS: Cardiac mediastinal and hilar silhouettes are within normal limits. No pneumothorax, pleural effusion, airspace consolidation or overt pulmonary edema. Bones of the chest appear grossly intact. IMPRESSION: No acute process. ACT 112: Negative or not required by law. The above report was generated using voice recognition software. It may contain grammatical, syntax or spelling errors. Electronically signed by: Yoandy Batres M.D. 10/11/2020 4:21 PM Chest CTA 10/11/20 16:54 CT ANGIOGRAPHY OF THE CHEST DISSECTION PROTOCOL CLINICAL HISTORY: Chest and abdominal pain. Evaluate for dissection. COMPARISON STUDY: Chest radiograph performed earlier today. Chest CT July 13, 2018. TECHNIQUE: Before and following the IV administration of 118 mL of Optiray, helical axial images of the chest were obtained. Maximal intensity projections and sagittal and coronal reformats were viewed on an independent 3D workstation. IV contrast was administered without complication. Automated exposure control was utilized for the study. A dose lowering technique was utilized adhering to the principles of ALARA. FINDINGS: The caliber of the thoracic aorta is normal. There is no thoracic aortic dissection or intramural hematoma. The size of the heart is normal. There is no pericardial effusion. No pulmonary emboli identified. There is no thoracic lymphadenopathy. There is no consolidation to suggest pneumonia. No pneumothorax or pleural effusion is noted. IMPRESSION: 1. No thoracic aortic dissection. 2. No acute process within the chest. ACT 112: Negative or not required by law. Electronically signed by: Lonnie Rubio M.D. 10/11/2020 6:17 PM Abdomen/Pelvis CTA 10/11/20 16:57 CT ANGIOGRAPHY OF THE ABDOMEN AND PELVIS CLINICAL HISTORY: Abdominal and chest pain. COMPARISON STUDY: CT of the abdomen and pelvis April 26, 2020. CTA of the abdomen and pelvis August 05, 2017. TECHNIQUE: Helical axial images of the abdomen and pelvis were obtained during arterial phase following intravenous injection 118 cc Optiray 320 IV. Sagittal and coronal reconstructed reviewed as well as maximal intensity projections on an independent 3-D workstation. Automated exposure control was utilized for the study. A dose lowering technique was utilized adhering to the principles of ALARA. FINDINGS: No pneumatosis, free air or portal venous gas is present. Arterial phase images of liver, spleen, adrenal glands and kidneys are unremarkable with exception of stable mild splenomegaly. The pancreas is unremarkable. Mild dieudonne iary ductal dilatation status likely related to cholecystectomy. There is no evidence for a bowel obstruction. There is colonic diverticulosis without evidence for acute diverticulitis. The appendix is surgically absent. Right hip arthroplasty is noted. There is a suspected endoscopic clip within the stomach. There is no hydronephrosis. The caliber of the abdominal aorta is normal. The branch vessels are patent. There is no dissection or aneurysm within the abdomen. IMPRESSION: 1. No acute process within the abdomen or pelvis. 2. Unremarkable CTA of the abdomen and pelvis. No dissection or aneurysm. 3. Colonic diverticulosis without evidence for acute diverticulitis. ACT 112: Negative or not required by law. Electronically signed by: Lonnie Rubio M.D. 10/11/2020 6:28 PM Discharge Plan Forms Stand Alone Forms: My [facility] Prescriptions Prescriptions: No Action lisinopril 20 mg Tablet 20 mg PO QAM RF: 0 simvastatin 10 mg Tablet 10 mg PO HS RF: 0 aspirin 81 mg Tablet,Delayed Release (Dr/Ec) 81 mg PO DAILY RF: 0 oxycodone 5 mg tablet 5 mg PO Q6H PRN (Reason: Pain) RF: 0 omeprazole 40 mg capsule,delayed release(DR/EC) 40 mg PO DAILYBB RF: 0 Referrals Referrals: PCP,NO [Physician] - Resident Activity Tracking Resident Involvement: Resident Care Provided Care Provided: Adult ED Date of Service: October 11, 2020 I have seen the patient, discussed the case with the attending physician, and agree with the documentation above. PGY2 resident Leighton Casas
[2020-10-11] MEDS: HYDROmorphone INJ 0.5 MG/0.5 ML SYR IV PRN ×4 (17:27→19:51)
[2020-10-11] MEDS ORDERED: OPTIRAY 320 125ml IV ONE (17:52)
--- NOTE | 2020-10-11 18:19 | CT Scan Report ---
CT ANGIOGRAPHY OF THE CHEST DISSECTION PROTOCOL CLINICAL HISTORY: Chest and abdominal pain. Evaluate for dissection. COMPARISON STUDY: Chest radiograph performed earlier today. Chest CT July 13, 2018. TECHNIQUE: Before and following the IV administration of 118 mL of Optiray, helical axial images of t he chest were obtained. Maximal intensity projections and sagittal and coronal reformats were viewed on an independent 3D workstation. IV contrast was administered without complication. Automated exp osure control was utilized for the study. A dose lowering technique was utilized adhering to the glenny Carlos. FINDINGS: The caliber of the thoracic aorta is normal. There is no thoracic aortic dissection or int ramural hematoma. The size of the heart is normal. There is no pericardial effusion. No pulmonary emb keon identified. There is no thoracic lymphadenopathy. There is no consolidation to suggest pneumonia. No pneumothorax or pleural effusion is noted. IMPRESSION: 1. No thoracic aortic dissection. 2. No acute process within the chest. ACT 112: Negative or not required by law. Electronically signed by: Lonnie Rubio M.D. 10/11/2020 6:17 PM
--- NOTE | 2020-10-11 18:29 | CT Scan Report ---
CT ANGIOGRAPHY OF THE ABDOMEN AND PELVIS CLINICAL HISTORY: Abdominal and chest pain. COMPARISON STUDY: CT of the abdomen and pelvis April 26, 2020. CTA of the abdomen and pelvis August 05, 2017. TECHNIQUE: Helical axial images of the abdomen and pelvis were obtained during arterial phase followi ng intravenous injection 118 cc Optiray 320 IV. Sagittal and coronal reconstructed reviewed as well a s maximal intensity projections on an independent 3-D workstation. Automated exposure control was uti lized for the study. A dose lowering technique was utilized adhering to the principles of ALARA. FINDINGS: No pneumatosis, free air or portal venous gas is present. Arterial phase images of liver, s pleen, adrenal glands and kidneys are unremarkable with exception of stable mild splenomegaly. The pa ncreas is unremarkable. Mild biliary ductal dilatation status likely related to cholecystectomy. Ther e is no evidence for a bowel obstruction. There is colonic diverticulosis without evidence for acute diverticulitis. The appendix is surgically absent. Right hip arthroplasty is noted. There is a suspec anitha endoscopic clip within the stomach. There is no hydronephrosis. The caliber of the abdominal aort a is normal. The branch vessels are patent. There is no dissection or aneurysm within the abdomen. IMPRESSION: 1. No acute process within the abdomen or pelvis. 2. Unremarkable CTA of the abdomen and pelvis. No dissection or aneurysm. 3. Colonic diverticulosis without evidence for acute diverticulitis. ACT 112: Negative or not required by law. Electronically signed by: Lonnie Rubio M.D. 10/11/2020 6:28 PM
[2020-10-11] MEDS: MoRPHine SULFATE 4 MG/ML 1 ML CARP\\VIAL IV PRN ×2 (20:39→23:08)
--- NOTE | 2020-10-11 20:54 | History & Physical Report ---
Date of Service October 11, 2020 Assessment & Plan (1) Chest pain: Plan: -Admit to telemetry -Patient presenting from home with reports of left-sided chest pain and GI bleeding symptoms -Risk factors: HTN, HLD, + family history -In the ED, CTA chest/ABD/pelvis unremarkable for acute findings -Initial troponin negative, EKG without acute ST changes -Chest pain somewhat reproducible on exam -Also question some GI component -Trend troponins, resting echo -Cardiology consult, input appreciated -Noted cardiac cath 07/2018 showed widely patent coronary arteries (2) GI bleeding: Plan: -Patient reporting coffee-ground emesis and bright red bleeding per rectum -Longstanding history of recurrent diverticulitis and GI bleeding issues -History of gastric ulcer 2017 that required clipping, EGD 04/2020 showed multiple gastric polyps, patient reports colonoscopy at [facility] in [place] 07/2020 showed polyps -Hgb 14.8 -continue to trend -IV PPI twice daily -GI consult, input appreciated (3) HTN (hypertension): Plan: -BP controlled, continue lisinopril (4) DVT prophylaxis: Plan: -SCDs due to GI bleeding History of Present Illness Chief Complaint: Chest pain, GI bleeding Primary Care Provider: Anup Al PA-C 60-year-old male with PMH HTN, recurrent diverticulitis, PUD, chronic pain, and other problems listed below who presents to the ED for evaluation of chest pain, abdominal pain, GI bleeding. Patient reports that for the past 3 days, he has been having coffee-ground emesis and bright red bleeding per rectum. He also reports left-sided abdominal pain that is very similar to his diverticulitis episodes in the past. Today, while resting and watching TV, he developed left arm pain and numbness that radiated into his left shoulder, jaw, and left side of his chest. Patient reports he got up to go the bathroom reports he felt lightheaded and dizzy. Symptoms were worse with exertion. Patient then p resented to the ED for further evaluation. Patient denies fevers and chills. No urinary symptoms. In the ED, CTA chest/ABD/pelvis are all unremarkable for acute findings. Initial troponin is negative, EKG does not show any acute ST changes. Patient received Dilaudid 0.5 mg IV x 4 doses, morphine 4 mg IV, and IV Zofran. Allergies Allergy/AdvReac Type Severity Reaction Status Date / Time ketorolac Allergy Severe SHORTNESS Verified 10/11/20 17:32 OF BREATH,RASH Home Medications Medication Instructions Recorded Confirmed Type lisinopril 20 mg tablet 20 mg PO QAM 03/16/18 10/11/20 History simvastatin 10 mg tablet 10 mg PO HS 04/26/20 10/11/20 History aspirin 81 mg tablet,delayed 81 mg PO DAILY 10/11/20 10/11/20 History release omeprazole 40 mg capsule,delayed 40 mg PO DAILYBB 10/11/20 10/11/20 History release oxycodone 5 mg tablet 5 mg PO Q6H PRN 10/11/20 10/11/20 History Past Med/Surg History Medical History Acute GI bleeding Avascular necrosis of bone of right hip s/p recent replacement at [facility] CAD (coronary artery disease) Diverticulitis GERD (gastroesophageal reflux disease) HTN (hypertension) Osteoarthritis PUD (peptic ulcer disease) 2018 - gastric ulcer that required clipping Surgical History H/O vasectomy History of total right knee replacement S/P appendectomy S/P cholecystectomy S/P knee replacement S/P tonsillectomy Family History Father Coronary heart disease T2DM (type 2 diabetes mellitus) Mother Pancreatic cancer Hypertension Social History Smoking Status: Never smoker Second Hand Exposure: Yes; Do You Dip or Chew Tobacco: No; Hx Alcohol Use: No Hx Substance Use: No Preferred Language: Latvian Communication Ability: Effective Emergency Department Aide Required: No Beliefs That Will Affect Care: None marital status: Current Living Situation: Significant Other Current Living Situation Comment: Girl friend Other Information That Helps Us Care for You: No Feels Safe at Home: Yes Safety Concerns: Feels Safe At This Time Assistive Devices: Glasses Review of Systems Review of Systems: ROS per HPI, all other systems reviewed and negative Physical Exam Constitutional: WD/WN, vitals as above Eyes: PERRL, conjunctivae normal, anicteric sclerae ENMT: external ear and nose normal, oropharynx normal Respiratory: normal respiratory effort, lungs clear to auscultation Cardiovascular: Rate/Rhythm: regular rate and regular rhythm Vessels: normal peripheral pulses Extremities: no edema Chest (Breasts): Additional Comments: Left chest wall tender Gastrointestinal (Abdomen): Inspection/Auscultation: normal bowel sounds Percussion/Palpation: + abdomen tender (Mild, left abdomen) and abdomen soft; no hepatosplenomegaly Musculoskeletal: no cyanosis or clubbing, extremities motor strength 5/5 Skin: no rashes, warm and dry Neurologic: PERRL, EOMI, accommodation nl, no face palsy, no dysarthria Psychiatric: A+Ox3, euthymic affect Results & Data Results & Data ([facility]) Vital Signs (Past 12 Hours) Vital Signs Temp Pulse Pulse Resp BP BP Pulse Ox 10/11/20 19:00 87 20 155/90 H 98 10/11/20 17:30 87 19 153/91 H 98 10/11/20 17:28 78 16 145/86 H 98 10/11/20 15:42 36.8 C 89 18 139/88 99 Laboratory Results Short CBC 10/11/20 Range/Units 15:52 WBC 5.57 (4.8-10.8) K/uL Hgb 14.8 (14.0-18.0) g/dL Hct 42.1 (42-52) % Plt Count 187 (130-400) K/uL BMP 10/11/20 15:52 Sodium 142 Potassium 3.8 Chloride 114 H Carbon Dioxide 25 BUN 13 Creatinine 0.98 Glucose 71 Calcium 8.9 Cardiac Enzymes 10/11/20 Range/Units 15:52 Troponin I < 0.015 (0-0.045) ng/ml Liver Function 10/11/20 Range/Units 15:52 Total Bilirubin 0.4 (0.2-1) mg/dl AST 10 L (15-37) U/L ALT 36 (12-78) U/L Alkaline Phosphatase 72 (45-117) U/L Albumin 4.4 (3.4-5.0) gm/dl Urine 10/11/20 Range/Units 16:00 Urine Color Yellow Urine Appearance Clear (Clear) Urine pH 6.5 (4.5-7.5) Ur Specific [place] 1.006 (1.000-1.030) Urine Protein Negative (Negative) Urine Glucose (UA) Negative (Negative) Diagnostic Findings Chest X-Ray 10/11/20 15:47 XR chest 1V portable HISTORY: 60 years-old Male Chest Pain acute atypical chest pain COMPARISON: Chest radiograph 04/26/2020 TECHNIQUE: Portable AP view of the chest FINDINGS: Cardiac mediastinal and hilar silhouettes are within normal limits. No pneumothorax, pleural effusion, airspace consolidation or overt pulmonary edema. Bones of the chest appear grossly intact. IMPRESSION: No acute process. ACT 112: Negative or not required by law. The above report was generated using voice recognition software. It may contain grammatical, syntax or spelling errors. Electronically signed by: Yoandy Batres M.D. 10/11/2020 4:21 PM Chest CTA 10/11/20 16:54 CT ANGIOGRAPHY OF THE CHEST DISSECTION PROTOCOL CLINICAL HISTORY: Chest and abdominal pain. Evaluate for dissection. COMPARISON STUDY: Chest radiograph performed earlier today. Chest CT July 13, 2018. TECHNIQUE: Before and following the IV administration of 118 mL of Optiray, helical axial images of the chest were obtained. Maximal intensity projections and sagittal and coronal reformats were viewed on an independent 3D workstation. IV contrast was administered without complication. Automated exposure control was utilized for the study. A dose lowering technique was utilized adhering to the principles of ALARA. FINDINGS: The caliber of the thoracic aorta is normal. There is no thoracic aortic dissection or intramural hematoma. The size of the heart is normal. There is no pericardial effusion. No pulmonary emboli identified. There is no thoracic lymphadenopathy. There is no consolidation to suggest pneumonia. No pneumothorax or pleural effusion is noted. IMPRESSION: 1. No thoracic aortic dissection. 2. No acute process within the chest. ACT 112: Negative or not required by law. Electronically signed by: Lonnie Rubio M.D. 10/11/2020 6:17 PM Abdomen/Pelvis CTA 10/11/20 16:57 CT ANGIOGRAPHY OF THE ABDOMEN AND PELVIS CLINICAL HISTORY: Abdominal and chest pain. COMPARISON STUDY: CT of the abdomen and pelvis April 26, 2020. CTA of the abdomen and pelvis August 05, 2017. TECHNIQUE: Helical axial images of the abdomen and pelvis were obtained during arterial phase following intravenous injection 118 cc Optiray 320 IV. Sagittal and coronal reconstructed reviewed as well as maximal intensity projections on an independent 3-D workstation. Automated exposure control was utilized for the study. A dose lowering technique was utilized adhering to the principles of ALARA. FINDINGS: No pneumatosis, free air or portal venous gas is present. Arterial phase images of liver, spleen, adrenal glands and kidneys are unremarkable with exception of stable mild splenomegaly. The pancreas is unremarkable. Mild biliary ductal dilatation status likely related to cholecystectomy. There is no evidence for a bowel obstruction. There is colonic diverticulosis without evidence for acute diverticulitis. The appendix is surgically absent. Right hip arthroplasty is noted. There is a suspected endoscopic clip within the stomach. There is no hydronephrosis. The caliber of the abdominal aorta is normal. The branch vessels are patent. There is no dissection or aneurysm within the abdomen. IMPRESSION: 1. No acute process within the abdomen or pelvis. 2. Unremarkable CTA of the abdomen and pelvis. No dissection or aneurysm. 3. Colonic diverticulosis without evidence for acute diverticulitis. ACT 112: Negative or not required by law. Electronically signed by: Lonnie Rubio M.D. 10/11/2020 6:28 PM Code Status & VTE Plan VTE Prophylaxis Plan VTE Prophylaxis will be ordered: Yes Supervising Physician Co-Signing Physician Notes I saw this patient with the Nurse Practitioner, I participated in the history, physical, review of systems, and physical exam. I reviewed the medications with the patient and the Nurse Practitioner and helped reconcile the medications. I helped take a detailed family and social history as well. I formulated the assessment and plan personally with the Nurse Practitioner went over it with the patient. ROS-No Headache, No Visual Changes, +Nausea, +Vomiting, No Fever, No Chills, No Neck Pain or Stiffness, +Chest Pain, No Palpitations, No SOB, No [place], No Cough, No Sputum, No Wheezing, + Abdominal Pain, No Diarrhea, No Hematemesis, No Hemoptysis, No Unexpected Weight Loss, No Flank pain, Occas Melena, + Hematochezia, No Frequency, No Urgency, No Burning, No Hematuria, No Rashes, No Diaphoresis. Appetite is Normal Physical Exam Gen-AAO x 3, NAD, Afebrile, Obese, Reproducible CP Head-NCAT, EOMI, PERRLA, Anicteric Sclera, No Posterior Pharyngeal Erythema Neck-Supple, No JVD, No Thyromegaly, No Masses, No LAD, No Bruits Lungs-Clear to Auscultation Bilaterally, No Rales, No Rhonchi, No Wheezing, No Crepitus Chest-No S4, +S1, +S2, No S3, No Murmurs, No Rubs, No Gallops, No Ectopy Abdomen-Soft, Bowel Sounds Present, Obese, L abd Tender, Non Distended, No Hepatomegaly, No Splenomegaly, No Palpable Masses, No Rebound, No Rigidity, No Guarding Musculoskeletal-Full Range of Motion Bilaterally, No CVAT Extremities-No Cyanosis, No Clubbing, No Edema Nuero-Cranial Nerves II-XII grossly intact, Motor WNL, DTRs WNL, Strength WNL, Non Focal Psych-Normal Mood (1) HTN (hypertension) Hypertension type: unspecified Qualified Code(s): I10 - Essential (primary) hypertension
[2020-10-11 21:19] LABS: Hematocrit (blood only) 41.1 % (42-52); Hemoglobin 14.5 g/dL (14.0-18.0)
[2020-10-11] MEDS ORDERED: ACETAMINOPHEN 325 MG TAB PO PRN (22:24)
[2020-10-11] MEDS ORDERED: NITROGLYCERIN SL 0.4 MG/TAB TAB SL PRN (22:24)
[2020-10-11] MEDS: SIMVASTATIN 10 MG TAB PO SCH (23:03)
[2020-10-11] MEDS: ONDANSETRON INJ 2 MG/ML 2 ML VIAL IV PRN (23:05)
[2020-10-11] MEDS: PANTOprazole 40 MG in SYRINGE 0 ML IV SCH (23:33)
[2020-10-12] MEDS: MoRPHine SULFATE 4 MG/ML 1 ML CARP\\VIAL IV PRN ×4 (03:17→21:43)
[2020-10-12 03:42] LABS: Hematocrit (blood only) 41.7 % (42-52); Hemoglobin 14.3 g/dL (14.0-18.0); Mean Corpuscular Hgb Conc 34.3 g/dL (32-36); Mean Corpuscular Volume 87.6 fL (80-100); Mean Platelet Volume 9.6 fL (7.4-10.4); Platelet Count 212 K/uL (130-400); RDW Coefficient of Variation 12.8 % (11.5-14.5); Red Blood Count 4.76 M/uL (4.7-6.1); White Blood Count 6.83 K/uL (4.8-10.8)
[2020-10-12 04:07] LABS: BUN Creatinine Ratio 12.8 (10-20); Blood Urea Nitrogen 12 mg/dl (7-18); Calcium 8.7 mg/dl (8.5-10.1); Carbon Dioxide 28 mmol/L (21-32); Chloride 113 mmol/L (98-107); Creatinine Clr Calc Pharmacy 107.4 ml/min; Est GFR (African American) 103.8 ml/min; Est GFR (Non-African American) 89.5 ml/min; Glucose 83 mg/dl (70-99); Sodium 143 mmol/L (136-145)
[2020-10-12 04:12] LABS: Troponin I < 0.015 ng/ml (0-0.045)
[2020-10-12] MEDS: ONDANSETRON INJ 2 MG/ML 2 ML VIAL IV PRN (08:11)
[2020-10-12] MEDS: lisinopril 20 MG TAB PO SCH (08:11)
[2020-10-12] MEDS: PANTOprazole 40 MG in SYRINGE 0 ML IV SCH ×2 (08:12→20:00)
--- NOTE | 2020-10-12 08:33 | Gastrointestinal Consultation ---
Date of Consultation October 12, 2020 Assessment & Plan (1) GI bleeding: This is a 60-year-old male with recurrent episodes of hematemesis, rectal bleeding, without abnormal hemoglobin or BUN, and no further gross bleeding since arrival. GI imaging is unremarkable for abnormalities including signs of obstruction, perforation, ischemia, infection or inflammation. Abdomen is soft. - He has had multiple endoscopies for the same over the last several years, most recently had EGD, colonoscopy within the last 3 months for similar symptoms, without significant findings. Would avoid repeating endoscopy at this time. - Would continue to monitor and document GI output - Trend H&H, transfuse as needed - He is complaining of abdominal discomfort which is chronic and intermittent for him, could consider trial of Bentyl as needed - Would monitor clinically and if signs of overt active GI bleed, or instability, would reassess for potential benefit of endoscopy - Will defer management of his co-morbidities to his primary team Thank you for allowing us to participate in the care of this patient. Please call with any acute changes, questions or concerns. Please see addendum below with additional recommendation from my supervising physician. Supervising Physician Co-Signing Physician Notes I have personally seen and examined the patient with Radha Macias PA-C. Her note reflects my exam and findings. I agree with her impression and plan. Repeat endoscopy would not add to patient's care and may put him at risk for associated procedural complications. Agree with Bentyl trial. Alphonse Rivero M.D. History of Present Illness Reason for Consultation: GI bleed Requesting Physician: HUEY Puri Attending Physician: Radha Serrato DO History of Present Illness Mr. Patrice Cr is a 60 yr old male with a hx of HTN, diverticular disease, PUD 2018, GERD, on narcotics for chronic pain who presented to the ED with reports of chest pain, hematemesis, coffee ground emesis, dark stool, hematochezia. GI consulted for GI bleed. Pt states beginning Thursday he had several bouts of vomiting with hematemesis and dark/coffee ground material, and several bouts of dark stools/hematochezia. CTA chest/abd without significant findings. Hb on arrival was 14.8, 14.3 today, BUN 12. I spoke with his nurse who reports no gross GI bleeding since arrival and pt denies any further GI output. He's on PPI gtt. VSS. He has undergone numerous evaluations for the same for the last several years, having undergone many endoscopies, most recently had EGD/EUS in August (benign gastric fundic gland polyps), gastritis, and colonoscopy in June (diverticulosis, internal hemorrhoids). He had small bowel imaging in 2017 with no significant findings. He mentions these symptoms tend to happen several times a year. He states at times he has coughed up blood in the past but not recently. He has chronic intermittent abd pain which is generalized and without specific predictable elements; sometimes feels right before a BM but not always. Has this abd pain currently. Denies EtOH, tobacco or alcohol use. He takes a daily PPI. Denies heartburn, dysphagia, odynophagia, change in appetite. Last EGD 08/29/20: - Normal esophagus. - Z-line regular, 38 cm from the incisors. - Gastritis, likely related to medications (biopsied in past). - Multiple gastric polyps, fundic polyps based on prior biopsies. - An endoclip was found in the stomach. - Normal examined duodenum. - Non-bleeding duodenal diverticulum. - No specimens collected. EUS 08/29/20: Evidence of a cholecystectomy. - There was no sign of significant pathology in the common bile duct. - There was no evidence of significant pathology in the visualized portion of the liver. - There was no sign of significant pathology in the entire pancreas. - Endosonographic images of the left adrenal gland were unremarkable. - Retained endoscopic clip in the gastric body (stomach otherwise normal) Colonoscopy 06/2020: - The examined portion of the ileum was normal. - Moderate diverticulosis in the sigmoid colon, in the descending colon and in the ascending colon. - Internal hemorrhoids. - The examination was otherwise normal. - No specimens collected. Repeat 10 years Allergies Allergy/AdvReac Type Severity Reaction Status Date / Time ketorolac Allergy Severe SHORTNESS Verified 10/11/20 17:32 OF BREATH,RASH Home Medications Medication Instructions Recorded Confirmed Type lisinopril 20 mg tablet 20 mg PO QAM 03/16/18 10/11/20 History simvastatin 10 mg tablet 10 mg PO HS 04/26/20 10/11/20 History aspirin 81 mg tablet,delayed 81 mg PO DAILY 10/11/20 10/11/20 History release omeprazole 40 mg capsule,delayed 40 mg PO DAILYBB 10/11/20 10/11/20 History release oxycodone 5 mg tablet 5 mg PO Q6H PRN 10/11/20 10/11/20 History Patient History Medical History Acute GI bleeding Avascular necrosis of bone of right hip s/p recent replacement at [facility] CAD (coronary artery disease) Diverticulitis GERD (gastroesophageal reflux disease) HTN (hypertension) Osteoarthritis PUD (peptic ulcer disease) 2018 - gastric ulcer that required clipping Surgical History H/O vasectomy History of total right knee replacement S/P appendectomy S/P cholecystectomy S/P knee replacement S/P tonsillectomy Family History Father Coronary heart disease T2DM (type 2 diabetes mellitus) Mother Pancreatic cancer Hypertension Social History Smoking Status: Never smoker Second Hand Exposure: Yes; Do You Dip or Chew Tobacco: No; Hx Alcohol Use: No Hx Substance Use: No Preferred Language: Haitian Communication Ability: Effective Vice President 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 Required: No Beliefs That Will Affect Care: None marital status: Current Living Situation: Significant Other Current Living Situation Comment: Girl friend Other Information That Helps Us Care for You: No Feels Safe at Home: Yes Safety Concerns: Feels Safe At This Time Assistive Devices: Glasses Review of Systems Review of Systems: All systems reviewed & are unremarkable except as noted in Subjective Physical Exam Constitutional: WD/WN, vitals as above Eyes: Anicteric sclerae Respiratory: normal respiratory effort, lungs clear to auscultation Cardiovascular: RRR, no murmur, no edema Gastrointestinal (Abdomen): Inspection/Auscultation: abdomen normal to inspection and normal bowel sounds; abdomen not distended Percussion/Palpation: abdomen soft Mild generalized tenderness, without rebound or guarding Skin: no rashes, warm and dry Psychiatric: A+Ox3, euthymic affect Results & Data ([facility]) Vital Signs (Past 12 Hours) Vital Signs Temp Pulse Pulse Resp BP Pulse Ox 10/12/20 05:22 60 10/12/20 03:47 36.6 C 71 20 112/73 98 10/11/20 22:15 36.9 C 79 20 155/91 H 98 10/11/20 21:30 83 18 123/80 96 10/11/20 21:01 76 20 142/83 H 98 Laboratory Results 10/12/20 10/12/20 10/11/20 Range/Units 03:07 03:07 21:06 WBC 6.83 (4.8-10.8) K/uL RBC 4.76 (4.7-6.1) M/uL Hgb 14.3 14.5 (14.0-18.0) g/dL Hct 41.7 L 41.1 L (42-52) % MCV 87.6 (80-100) fL MCH 30.0 (25-34) pg MCHC 34.3 (32-36) g/dL RDW Std Deviation 41.0 (36.4-46.3) fL RDW Coeff of Kim 12.8 (11.5-14.5) % Plt Count 212 (130-400) K/uL MPV 9.6 (7.4-10.4) fL Immature Gran % (Auto) % Neut % (Auto) % Lymph % (Auto) % Carter % (Auto) % Eos % (Auto) % Baso % (Auto) % Neut # (Auto) (1.4-6.5) K/uL Lymph # (Auto) (1.2-3.4) K/uL Carter # (Auto) (0.11-0.59) K/uL Eos # (Auto) (0-0.5) K/uL Baso # (Auto) (0-0.2) K/uL Immature Gran # (Auto) (0.00-0.02) K/uL PT (9.0-12.0) Seconds INR (0.9-1.1) APTT (21.0-31.0) Seconds PTT Ratio Sodium 143 (136-145) mmol/L Potassium 4.0 (3.5-5.1) mmol/L Chloride 113 H (98-107) mmol/L Carbon Dioxide 28 (21-32) mmol/L Anion Gap 2.0 L (3-11) BUN 12 (7-18) mg/dl Creatinine 0.93 (0.6-1.4) mg/dl Est Cr Clr Drug Dosing 107.4 ml/min Est GFR ( Amer) 103.8 ml/min Est GFR (Non-Af Amer) 89.5 ml/min BUN/Creatinine Ratio 12.8 (10-20) Glucose 83 (70-99) mg/dl Calcium 8.7 (8.5-10.1) mg/dl Total Bilirubin (0.2-1) mg/dl AST (15-37) U/L ALT (12-78) U/L Alkaline Phosphatase (45-117) U/L Troponin I < 0.015 (0-0.045) ng/ml Total Protein (6.4-8.2) gm/dl Albumin (3.4-5.0) gm/dl Globulin (2.5-4.0) gm/dl Albumin/Globulin Ratio (0.9-2) Urine Color Urine Appearance (Clear) Urine pH (4.5-7.5) Ur Specific Mulhall (1.000-1.030) Urine Protein (Negative) Urine Glucose (UA) (Negative) Urine Ketones (Negative) Urine Blood (Negative) Urine Nitrite (Negative) Urine Bilirubin (Negative) Urine Urobilinogen (Negative) Ur Leukocyte Esterase (Negative) Urine WBC (Auto) (0-5) /hpf Urine RBC (Auto) (0-4) /hpf U Hyaline Cast (Auto) (0-5) /lpf U Epithel Cells (Auto) (0-5) /lpf Urine Bacteria (Auto) (Negative) COVID-19 Eval Order SARS-CoV-2 (PCR) (Negative) 10/11/20 10/11/20 10/11/20 Range/Units 21:06 19:10 19:10 WBC (4.8-10.8) K/uL RBC (4.7-6.1) M/uL Hgb (14.0-18.0) g/dL Hct (42-52) % MCV (80-100) fL MCH (25-34) pg MCHC (32-36) g/dL RDW Std Deviation (36.4-46.3) fL RDW Coeff of Kim (11.5-14.5) % Plt Count (130-400) K/uL MPV (7.4-10.4) fL Immature Gran % (Auto) % Neut % (Auto) % Lymph % (Auto) % Carter % (Auto) % Eos % (Auto) % Baso % (Auto) % Neut # (Auto) (1.4-6.5) K/uL Lymph # (Auto) (1.2-3.4) K/uL Carter # (Auto) (0.11-0.59) K/uL Eos # (Auto) (0-0.5) K/uL Baso # (Auto) (0-0.2) K/uL Immature Gran # (Auto) (0.00-0.02) K/uL PT (9.0-12.0) Seconds INR (0.9-1.1) APTT (21.0-31.0) Seconds PTT Ratio Sodium (136-145) mmol/L Potassium (3.5-5.1) mmol/L Chloride (98-107) mmol/L Carbon Dioxide (21-32) mmol/L Anion Gap (3-11) BUN (7-18) mg/dl Creatinine (0.6-1.4) mg/dl Est Cr Clr Drug Dosing ml/min Est GFR ( Amer) ml/min Est GFR (Non-Af Amer) ml/min BUN/Creatinine Ratio (10-20) Glucose (70-99) mg/dl Calcium (8.5-10.1) mg/dl Total Bilirubin (0.2-1) mg/dl AST (15-37) U/L ALT (12-78) U/L Alkaline Phosphatase (45-117) U/L Troponin I < 0.015 (0-0.045) ng/ml Total Protein (6.4-8.2) gm/dl Albumin (3.4-5.0) gm/dl Globulin (2.5-4.0) gm/dl Albumin/Globulin Ratio (0.9-2) Urine Color Urine Appearance (Clear) Urine pH (4.5-7.5) Ur Specific [place] (1.000-1.030) Urine Protein (Negative) Urine Glucose (UA) (Negative) Urine Ketones (Negative) Urine Blood (Negative) Urine Nitrite (Negative) Urine Bilirubin (Negative) Urine Urobilinogen (Negative) Ur Leukocyte Esterase (Negative) Urine WBC (Auto) (0-5) /hpf Urine RBC (Auto) (0-4) /hpf U Hyaline Cast (Auto) (0-5) /lpf U Epithel Cells (Auto) (0-5) /lpf Urine Bacteria (Auto) (Negative) COVID-19 Eval Order Covid19 at [facility] SARS-CoV-2 (PCR) NEGATIVE (Negative) 10/11/20 10/11/20 10/11/20 Range/Units 16:00 15:52 15:52 WBC (4.8-10.8) K/uL RBC (4.7-6.1) M/uL Hgb (14.0-18.0) g/dL Hct (42-52) % MCV (80-100) fL MCH (25-34) pg MCHC (32-36) g/dL RDW Std Deviation (36.4-46.3) fL RDW Coeff of Kim (11.5-14.5) % Plt Count (130-400) K/uL MPV (7.4-10.4) fL Immature Gran % (Auto) % Neut % (Auto) % Lymph % (Auto) % Carter % (Auto) % Eos % (Auto) % Baso % (Auto) % Neut # (Auto) (1.4-6.5) K/uL Lymph # (Auto) (1.2-3.4) K/uL Carter # (Auto) (0.11-0.59) K/uL Eos # (Auto) (0-0.5) K/uL Baso # (Auto) (0-0.2) K/uL Immature Gran # (Auto) (0.00-0.02) K/uL PT 11.4 (9.0-12.0) Seconds INR 1.1 (0.9-1.1) APTT 25.4 (21.0-31.0) Seconds PTT Ratio 1.0 Sodium 142 (136-145) mmol/L Potassium 3.8 (3.5-5.1) mmol/L Chloride 114 H (98-107) mmol/L Carbon Dioxide 25 (21-32) mmol/L Anion Gap 3.0 (3-11) BUN 13 (7-18) mg/dl Creatinine 0.98 (0.6-1.4) mg/dl Est Cr Clr Drug Dosing 102.3 ml/min Est GFR ( Amer) 97.4 ml/min Est GFR (Non-Af Amer) 84.1 ml/min BUN/Creatinine Ratio 13.0 (10-20) Glucose 71 (70-99) mg/dl Calcium 8.9 (8.5-10.1) mg/dl Total Bilirubin 0.4 (0.2-1) mg/dl AST 10 L (15-37) U/L ALT 36 (12-78) U/L Alkaline Phosphatase 72 (45-117) U/L Troponin I < 0.015 (0-0.045) ng/ml Total Protein 7.5 (6.4-8.2) gm/dl Albumin 4.4 (3.4-5.0) gm/dl Globulin 3.1 (2.5-4.0) gm/dl Albumin/Globulin Ratio 1.4 (0.9-2) Urine Color Yellow Urine Appearance Clear (Clear) Urine pH 6.5 (4.5-7.5) Ur Specific Mulhall 1.006 (1.000-1.030) Urine Protein Negative (Negative) Urine Glucose (UA) Negative (Negative) Urine Ketones Negative (Negative) Urine Blood Negative (Negative) Urine Nitrite Negative (Negative) Urine Bilirubin Negative (Negative) Urine Urobilinogen Negative (Negative) Ur Leukocyte Esterase Trace H (Negative) Urine WBC (Auto) 1-5 (0-5) /hpf Urine RBC (Auto) 0-4 (0-4) /hpf U Hyaline Cast (Auto) 0 (0-5) /lpf U Epithel Cells (Auto) 0-5 (0-5) /lpf Urine Bacteria (Auto) Negative (Negative) COVID-19 Eval Order SARS-CoV-2 (PCR) (Negative) 10/11/20 Range/Units 15:52 WBC 5.57 (4.8-10.8) K/uL RBC 4.87 (4.7-6.1) M/uL Hgb 14.8 (14.0-18.0) g/dL Hct 42.1 (42-52) % MCV 86.4 (80-100) fL MCH 30.4 (25-34) pg MCHC 35.2 (32-36) g/dL RDW Std Deviation 39.7 (36.4-46.3) fL RDW Coeff of Kim 12.4 (11.5-14.5) % Plt Count 187 (130-400) K/uL MPV 9.3 (7.4-10.4) fL Immature Gran % (Auto) 0.2 % Neut % (Auto) 67.3 % Lymph % (Auto) 20.1 % Carter % (Auto) 8.8 % Eos % (Auto) 3.2 % Baso % (Auto) 0.4 % Neut # (Auto) 3.75 (1.4-6.5) K/uL Lymph # (Auto) 1.12 L (1.2-3.4) K/uL Carter # (Auto) 0.49 (0.11-0.59) K/uL Eos # (Auto) 0.18 (0-0.5) K/uL Baso # (Auto) 0.02 (0-0.2) K/uL Immature Gran # (Auto) 0.01 (0.00-0.02) K/uL PT (9.0-12.0) Seconds INR (0.9-1.1) APTT (21.0-31.0) Seconds PTT Ratio Sodium (136-145) mmol/L Potassium (3.5-5.1) mmol/L Chloride (98-107) mmol/L Carbon Dioxide (21-32) mmol/L Anion Gap (3-11) BUN (7-18) mg/dl Creatinine (0.6-1.4) mg/dl Est Cr Clr Drug Dosing ml/min Est GFR ( Amer) ml/min Est GFR (Non-Af Amer) ml/min BUN/Creatinine Ratio (10-20) Glucose (70-99) mg/dl Calcium (8.5-10.1) mg/dl Total Bilirubin (0.2-1) mg/dl AST (15-37) U/L ALT (12-78) U/L Alkaline Phosphatase (45-117) U/L Troponin I (0-0.045) ng/ml Total Protein (6.4-8.2) gm/dl Albumin (3.4-5.0) gm/dl Globulin (2.5-4.0) gm/dl Albumin/Globulin Ratio (0.9-2) Urine Color Urine Appearance (Clear) Urine pH (4.5-7.5) Ur Specific [place]hall (1.000-1.030) Urine Protein (Negative) Urine Glucose (UA) (Negative) Urine Ketones (Negative) Urine Blood (Negative) Urine Nitrite (Negative) Urine Bilirubin (Negative) Urine Urobilinogen (Negative) Ur Leukocyte Esterase (Negative) Urine WBC (Auto) (0-5) /hpf Urine RBC (Auto) (0-4) /hpf U Hyaline Cast (Auto) (0-5) /lpf U Epithel Cells (Auto) (0-5) /lpf Urine Bacteria (Auto) (Negative) COVID-19 Eval Order SARS-CoV-2 (PCR) (Negative) Diagnostic Findings CXR: IMPRESSION: No acute process. CTA chest: 1. No thoracic aortic dissection. 2. No acute process within the chest. CTA abd/pelvis: FINDINGS: No pneumatosis, free air or portal venous gas is present. Arterial phase images of liver, spleen, adrenal glands and kidneys are unremarkable with exception of stable mild splenomegaly. The pancreas is unremarkable. Mild biliary ductal dilatation status likely related to cholecystectomy. There is no evidence for a bowel obstruction. There is colonic diverticulosis without evidence for acute diverticulitis. The appendix is surgically absent. Right hip arthroplasty is noted. There is a suspected endoscopic clip within the stomach. There is no hydronephrosis. The caliber of the abdominal aorta is normal. The branch vessels are patent. There is no dissection or aneurysm within the abdomen. IMPRESSION: 1. No acute process within the abdomen or pelvis. 2. Unremarkable CTA of the abdomen and pelvis. No dissection or aneurysm. 3. Colonic diverticulosis without evidence for acute diverticulitis.
--- NOTE | 2020-10-12 09:53 | Electrocardiogram Report ---
Test Reason : Blood Pressure : / mmHG Vent. Rate : 075 BPM Atrial Rate : 075 BPM P-R Int : 188 ms QRS Dur : 090 ms QT Int : 394 ms P-R-T Axes : 051 -14 024 degrees QTc Int : 439 ms Normal sinus rhythm Normal ECG When compared with ECG of 11-OCT-2020 15:38, No significant change was found Confirmed by Bryan Sotelo ([id number]) on 10/12/2020 9:53:01 AM Referred By: REFERRED SELF Confirmed By:Bryan Sotelo
--- NOTE | 2020-10-12 10:21 | Cardiology Consultation ---
Date of Consultation October 12, 2020 Assessment & Plan (1) Chest pain: (2) GI [age]-year-old patient presents to the emergency department with hematemesis and hematochezia. Reports associated abdominal and chest discomfort. Discomfort ongoing for more than 18 hours without evidence of acute coronary syndrome. Baseline cardiac test including ECG, troponins, and echocardiogram are unremarkable. Cardiac etiology of symptoms is unlikely. He also underwent cardiac catheterization in 2016 which demonstrated normal coronary anatomy. With acute hematemesis/hematochezia, patient is not a candidate for antiplatelet or anticoagulation currently. Family history of premature coronary artery disease noted. Continue statin therapy and optimize medically in the outpatient setting. Risk factor modification including optimal blood pressure control, lipid management, weight loss, and participation in a regular aerobic exercise program when able recommended. Further assessment and management as per gastroenterology. No cardiac contraindication to endoscopy. History of Present Illness Reason for Consultation: chest pain Requesting Physician: Dr. Serrato Attending Physician: Radha Serrato, History of Present Illness 60-year-old patient presented to the emergency department with hematemesis and hematochezia. Patient describes onset of abdominal discomfort radiating to his left upper and right upper quadrants. This discomfort then radiated to his chest, left shoulder, neck, and left arm. Due to concerns regarding his family history he came to the ER for further evaluation and treatment. ECG without ischemic changes. Cardiac enzymes undetectable since admission. A bedside 2D transthoracic echocardiogram was performed demonstrating normal wall motion, no pericardial effusion. Patient continues to note diffuse abdominal as well as chest discomfort. No recurrent hematemesis or hematochezia. Denies coffee-ground emesis. Followed closely by GI for similar symptoms in the past. He was previously evaluated by cardiology in 2016 with a similar presentation. A cardiac catheterization was performed demonstrating normal coronary arteries. Pain somewhat positional and reproducible on exam. He is n.p.o. at this time. Offers no other concerns/complaints. Allergies Allergy/AdvReac Type Severity Reaction Status Date / Time ketorolac Allergy Severe SHORTNESS Verified 10/11/20 17:32 OF BREATH,RASH Home Medications Medication Instructions Recorded Confirmed Type lisinopril 20 mg tablet 20 mg PO QAM 03/16/18 10/11/20 History simvastatin 10 mg tablet 10 mg PO HS 04/26/20 10/11/20 History aspirin 81 mg tablet,delayed 81 mg PO DAILY 10/11/20 10/11/20 History release omeprazole 40 mg capsule,delayed 40 mg PO DAILYBB 10/11/20 10/11/20 History release oxycodone 5 mg tablet 5 mg PO Q6H PRN 10/11/20 10/11/20 History Patient History Medical History Acute GI bleeding Avascular necrosis of bone of right hip s/p recent replacement at [facility] CAD (coronary artery disease) Diverticulitis GERD (gastroesophageal reflux disease) HTN (hypertension) Osteoarthritis PUD (peptic ulcer disease) 2018 - gastric ulcer that required clipping Surgical History H/O vasectomy History of total right knee replacement S/P appendectomy S/P cholecystectomy S/P knee replacement S/P tonsillectomy Family History Father Coronary heart disease T2DM (type 2 diabetes mellitus) Mother Pancreatic cancer Hypertension Social History Smoking Status: Never smoker Second Hand Exposure: Yes; Do You Dip or Chew Tobacco: No; Hx Alcohol Use: No Hx Substance Use: No Preferred Language: [place] Communication Ability: Effective 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 Beliefs That Will Affect Care: None marital status: Current Living Situation: Significant Other Current Living Situation Comment: Girl friend Other Information That Helps Us Care for You: No Feels Safe at Home: Yes Safety Concerns: Feels Safe At This Time Assistive Devices: Glasses Review of Systems Review of Systems: All systems reviewed & are unremarkable except as noted in Subjective Physical Exam Constitutional: well nourished and + obese; no acute distress and not ill appearing Respiratory: normal respiratory effort; no respiratory distress and no labored breathing Auscultation: lungs clear to auscultation bilaterally; no crackles, no rales, no rhonchi and no wheezes Cardiovascular: Rate/Rhythm: regular rate and regular rhythm Heart Sounds: normal S1 and normal S2; no murmur Vessels: radial pulses present; no JVD and no carotid bruit Extremities: no edema Gastrointestinal (Abdomen): Inspection/Auscultation: abdomen normal to inspection and normal bowel sounds; abdomen not distended Percussion/P alpation: + abdomen tender (Diffuse abdominal tenderness) and abdomen soft; no guarding and abdomen not rigid Neurologic: CN's II-XI intact bilaterally and moves all extremities; no focal motor deficits Motor/Sensory: no tremor Psychiatric: A+Ox3, euthymic affect Results & Data ([facility]) Vital Signs (Past 12 Hours) Vital Signs Temp Pulse Pulse Resp BP Pulse Ox 10/12/20 09:19 37.0 C 76 18 130/77 98 10/12/20 05:22 60 10/12/20 03:47 36.6 C 71 20 112/73 98 Laboratory Results Troponins are undetectable. Serum hemoglobin stable and unchanged. ECG Additional Comments: ECG 10/12/2020 demonstrating normal sinus rhythm, normal ECG. Echocardiogram demonstrates preserved LV systolic function, no regional wall motion abnormalities, no significant valvular pathology. Telemetry reveals sinus rhythm in the 60s. No dysrhythmias.
[2020-10-12] MEDS ORDERED: HYDROmorphone INJ 0.5 MG/0.5 ML SYR IV PRN (16:59)
[2020-10-12] MEDS ORDERED: HYDROmorphone INJ 0.5 MG/0.5 ML SYR IV STA (16:59)
[2020-10-12] MEDS ORDERED: ONDANSETRON INJ 2 MG/ML 2 ML VIAL IV STA (16:59)
[2020-10-12] MEDS: oxyCODONE HCL IR 5 MG TAB (IMMEDIATE RELEASE) PO PRN (19:59)
[2020-10-12] MEDS: SIMVASTATIN 10 MG TAB PO SCH (20:00)
--- NOTE | 2020-10-12 20:23 | Hospitalist Progress Note ---
Date of Service October 12, 2020 Assessment & Plan (1) Chest pain: Plan: 60-year-old man with history of recurrent diverticulitis peptic ulcer disease and chronic pain presented for evaluation of chest and abdominal pain with GI bleeding. Per cardiology his discomfort was going on for more than 18 hours without evidence of acute coronary syndrome. Baseline testing including EKG troponins and echocardiogram were unremarkable. Therefore, symptoms are less likely related to a cardiac etiology. Furthermore he underwent a cardiac catheterization in 2016 demonstrating normal anatomy. With ongoing hematochezia and hematemesis he is not a candidate for antiplatelet or anticoagulation therapy. He was also seen by gastroenterology who is continuing observation as he has had multiple endoscopies for the same issues over the last few years. He most recently had an EGD and colonoscopy within the last 3 months for similar symptoms without significant findings. We will continue to trend H&H and transfuse as needed. Trial of Bentyl considered. Currently, patient is responding best to Dilaudid per his report (2) GI bleeding: Plan: He continues on Protonix 40 mg IV twice daily. Baby aspirin has been held. He reports an additional bout of hematochezia this afternoon. H&H remained stable at 14/42. Continue to monitor per GI. (3) Chronic pain: Plan: Chronic pain with narcotic dependence. Typically takes oxycodone 5 mg 4 times daily. GI considering Bentyl trial. (4) HTN (hypertension): Plan: -BP controlled, continue lisinopril (5) DVT prophylaxis: Plan: -SCDs due to GI bleeding Full code Disposition-to home when medically stable. Radha Serrato DO [facility] Hospitalist Admission and Anticipated Discharge Date Admission Date: October 11, 2020 Subjective 60 yo M presented with acute centralized abdominal pain with radiation into his chest and through to his back Still reports this pain ongoing now and states it is an 8 out of 10. Intermittent hematochezia with one episode of hematochezia this afternoon. Abd pain is sharp in the middle of abd, radiating to his back. He denies hunger but reports feeling thirsty. Denies lightheadedness or dizziness Review of Systems Review of Systems: All systems were reviewed and negative except as indicated in HPI above. Physical Exam Physical Exam: CONSTITUTIONAL: WNWD, vitals as above, generally well- appearing, not in distress EYES: normal conjunctivae, no scleral icterus ENT: external ear and nose normal, MMM RESPIRATORY: clear to auscultation bilaterally, no crackles, rales or wheezes, normal respiratory effort CARDIOVASCULAR: regular rate and rhythm, S1 and 2 heard without murmurs, gallops or rubs, no JVD, no peripheral edema GASTROINTESTINAL: soft, TTP generally across abdomen. MUSCULOSKELETAL: strength 5/5 throughout, head is normocephalic and atraumatic SKIN: warm and dry NEUROLOGIC: CN 2-12 grossly intact, normal cognition, normal speech, no tremor PSYCHIATRIC: alert cooperative and oriented to person, place and time. Results & Data Results & Data ([facility]) Vital Signs (Past 12 Hours) Vital Signs Temp Pulse Pulse Resp BP Pulse Ox 10/12/20 19:09 36.9 C 42 L 18 136/79 96 10/12/20 18:11 142/80 H 10/12/20 16:29 71 10/12/20 15:08 36.7 C 71 18 114/63 97 10/12/20 11:48 36.7 C 72 20 128/67 97 10/12/20 09:19 37.0 C 76 18 130/77 98 Laboratory Results Short CBC 10/11/20 10/12/20 Range/Units 21:06 03:07 WBC 6.83 (4.8-10.8) K/uL Hgb 14.5 14.3 (14.0-18.0) g/dL Hct 41.1 L 41.7 L (42-52) % Plt Count 212 (130-400) K/uL BMP 10/12/20 03:07 Sodium 143 Potassium 4.0 Chloride 113 H Carbon Dioxide 28 BUN 12 Creatinine 0.93 Glucose 83 Calcium 8.7 Cardiac Enzymes 10/11/20 10/12/20 Range/Units 21:06 03:07 Troponin I < 0.015 < 0.015 (0-0.045) ng/ml Medications Administered Current Inpatient Medications Acetaminophen (Acetaminophen 325 Mg Tab) 650 mg PO Q4H PRN PRN Reason: Pain or Fever Stop: 11/10/20 22:23 Hydromorphone HCl (Hydromorphone Inj 0.5 Mg/0.5 Ml Syr) 0.5 mg IV Q6H PRN PRN Reason: Pain Stop: 10/26/20 16:58 Pantoprazole Sodium 40 mg/ (Syringe) 10 mls @ 5 mls/min IV BID VELIA Stop: 11/10/20 22:23 Last Admin: 10/12/20 20:00 Dose: 5 mls/min Documented by: Lisinopril (Lisinopril 20 Mg Tab) 20 mg PO QAM VELIA Stop: 11/11/20 08:59 Last Admin: 10/12/20 08:11 Dose: 20 mg Documented by: Morphine Sulfate (Morphine Sulfate 4 Mg/Ml 1 Ml Carp\Vial) 4 mg IV Q4H PRN PRN Reason: pain Stop: 10/25/20 20:31 Last Admin: 10/12/20 12:45 Dose: 4 mg Documented by: Nitroglycerin (Nitroglycerin Sl 0.4 Mg/Tab Tab) 0.4 mg SL UD PRN PRN Reason: Chest Pain Stop: 11/10/20 22:23 Ondansetron HCl (Ondansetron Inj 2 Mg/Ml 2 Ml Vial) 4 mg IV Q6H PRN PRN Reason: Nausea Stop: 11/10/20 22:23 Last Admin: 10/12/20 08:11 Dose: 4 mg Documented by: Oxycodone HCl (Oxycodone Hcl Ir 5 Mg Tab (Immediate Release)) 5 mg PO Q6H PRN PRN Reason: severe pain Stop: 10/26/20 16:59 Last Admin: 10/12/20 19:59 Dose: 5 mg Documented by: Simvastatin (Simvastatin 10 Mg Tab) 10 mg PO HS VELIA Stop: 11/10/20 22:23 Last Admin: 10/12/20 20:00 Dose: 10 mg Documented by: (1) HTN (hypertension) Hypertension type: unspecified Qualified Code(s): I10 - Essential (primary) hypertension
[2020-10-13] MEDS: MoRPHine SULFATE 4 MG/ML 1 ML CARP\\VIAL IV PRN ×3 (03:18→11:58)
[2020-10-13] MEDS: PANTOprazole 40 MG in SYRINGE 0 ML IV SCH ×2 (07:36→20:52)
[2020-10-13] MEDS: lisinopril 20 MG TAB PO SCH (07:36)
[2020-10-13] MEDS: ONDANSETRON INJ 2 MG/ML 2 ML VIAL IV PRN (07:37)
[2020-10-13 09:09] LABS: Hematocrit (blood only) 41.8 % (42-52); Hemoglobin 14.7 g/dL (14.0-18.0)
[2020-10-13] MEDS: oxyCODONE HCL IR 5 MG TAB (IMMEDIATE RELEASE) PO PRN ×2 (14:03→20:51)
[2020-10-13] MEDS ORDERED: DICYCLOMINE HCL 10 MG CAP PO ONE (17:22)
--- NOTE | 2020-10-13 17:24 | Hospitalist Progress Note ---
Date of Service October 13, 2020 Assessment & Plan (1) Chest pain: Plan: 60-year-old man with history of recurrent diverticulitis peptic ulcer disease and chronic pain presented for evaluation of chest and abdominal pain with GI bleeding. Per cardiology his discomfort was going on for more than 18 hours without evidence of acute coronary syndrome. Baseline testing including EKG troponins and echocardiogram were unremarkable. Therefore, symptoms are less likely related to a cardiac etiology. Furthermore he underwent a cardiac catheterization in 2016 demonstrating normal anatomy. With ongoing hematochezia and hematemesis he is not a candidate for antiplatelet or anticoagulation therapy. He was also seen by gastroenterology who is continuing observation as he has had multiple endoscopies for the same issues over the last few years. He most recently had an EGD and colonoscopy within the last 3 months for similar symptoms without significant findings. Trend CBC in am-H/H stable so far. Bentyl scheduled. (2) GI bleeding: Plan: He continues on Protonix 40 mg IV twice daily. Baby aspirin has been held. H/H stable, cont per GI as outpatient. ([facility]) (3) Chronic pain: Plan: Chronic pain with narcotic dependence. Typically takes oxycodone 5 mg 4 times daily. Bentyl trial (4) HTN (hypertension): Plan: -BP controlled, continue lisinopril (5) DVT prophylaxis: Plan: -SCDs due to GI bleeding Full code Disposition-to home when medically stable. Radha Serrato DO [facility] Hospitalist Admission and Anticipated Discharge Date Admission Date: October 12, 2020 Subjective 60 yo M presented with acute centralized abdominal pain with radiation into his chest and through to his back Still reports this pain ongoing now and describes it to be more in his abdomen. Intermittent hematochezia overnight. Abd pain is sharp in the middle of abd, radiating to his back. He denies hunger but reports feeling thirsty. Denies lightheadedness or dizziness Review of Systems Review of Systems: All systems were reviewed and negative except as indicated in HPI above. Physical Exam Physical Exam: CONSTITUTIONAL: WNWD, vitals as above, generally well- appearing, not in distress EYES: normal conjunctivae, no scleral icterus ENT: external ear and nose normal, MMM RESPIRATORY: clear to auscultation bilaterally, no crackles, rales or wheezes, normal respiratory effort CARDIOVASCULAR: regular rate and rhythm, S1 and 2 heard without murmurs, gallops or rubs, no JVD, no peripheral edema GASTROINTESTINAL: soft, TTP generally across abdomen. MUSCULOSKELETAL: strength 5/5 throughout, head is normocephalic and atraumatic SKIN: warm and dry NEUROLOGIC: CN 2-12 grossly intact, normal cognition, normal speech, no tremor PSYCHIATRIC: alert cooperative and oriented to person, place and time. Results & Data Results & Data ([facility]) Vital Signs (Past 12 Hours) Vital Signs Temp Pulse Pulse Pulse Resp BP Pulse Ox 10/13/20 15:46 36.8 C 79 20 146/86 H 96 10/13/20 11:15 71 10/13/20 07:06 36.9 C 78 20 161/78 H 98 10/13/20 05:38 36.6 C 66 18 148/62 H 95 Laboratory Results Short CBC 10/13/20 Range/Units 08:26 Hgb 14.7 (14.0-18.0) g/dL Hct 41.8 L (42-52) % Medications Administered Current Inpatient Medications Acetaminophen (Acetaminophen 325 Mg Tab) 650 mg PO Q4H PRN PRN Reason: Pain or Fever Stop: 11/10/20 22:23 Dicyclomine HCl (Dicyclomine Hcl 10 Mg Cap) 10 mg PO NOW ONE Stop: 10/13/20 17:23 Dicyclomine HCl (Dicyclomine Hcl 10 Mg Cap) 10 mg PO TID [facility] Stop: 11/12/20 20:59 Pantoprazole Sodium 40 mg/ (Syringe) 10 mls @ 5 mls/min IV BID [facility] Stop: 11/10/20 22:23 Last Admin: 10/13/20 07:36 Dose: 5 mls/min Documented by: Lisinopril (Lisinopril 20 Mg Tab) 20 mg PO QAM VELIA Stop: 11/11/20 08:59 Last Admin: 10/13/20 07:36 Dose: 20 mg Documented by: Nitroglycerin (Nitroglycerin Sl 0.4 Mg/Tab Tab) 0.4 mg SL UD PRN PRN Reason: Chest Pain Stop: 11/10/20 22:23 Ondansetron HCl (Ondansetron Inj 2 Mg/Ml 2 Ml Vial) 4 mg IV Q6H PRN PRN Reason: Nausea Stop: 11/10/20 22:23 Last Admin: 10/13/20 07:37 Dose: 4 mg Documented by: Oxycodone HCl (Oxycodone Hcl Ir 5 Mg Tab (Immediate Release)) 5 mg PO Q6H PRN PRN Reason: severe pain Stop: 10/26/20 16:59 Last Admin: 10/13/20 14:03 Dose: 5 mg Documented by: Simvastatin (Simvastatin 10 Mg Tab) [address] [facility] Stop: 11/10/20 22:23 Last Admin: 10/12/20 20:00 Dose: 10 mg Documented by: (1) HTN (hypertension) Hypertension type: unspecified Qualified Code(s): I10 - Essential (primary) hypertension
[2020-10-13] MEDS: DICYCLOMINE HCL 10 MG CAP PO SCH (20:51)
[2020-10-13] MEDS: SIMVASTATIN 10 MG TAB PO SCH (22:55)
[2020-10-14] MEDS: oxyCODONE HCL IR 5 MG TAB (IMMEDIATE RELEASE) PO PRN ×4 (03:02→21:40)
--- NOTE | 2020-10-14 08:04 | Electrocardiogram Report ---
Test Reason : Blood Pressure : / mmHG Vent. Rate : 074 BPM Atrial Rate : 074 BPM P-R Int : 194 ms QRS Dur : 094 ms QT Int : 396 ms P-R-T Axes : 056 -24 030 degrees QTc Int : 439 ms Normal sinus rhythm Normal ECG When compared with ECG of 12-OCT-2020 06:06, No significant change was found Confirmed by Bryan Sotelo ([id number]) on 10/14/2020 8:03:57 AM Referred By: REFERRED SELF Confirmed By:Bryan Sotelo
[2020-10-14 08:39] LABS: Hematocrit (blood only) 41.9 % (42-52); Hemoglobin 14.3 g/dL (14.0-18.0); Mean Corpuscular Hemoglobin 29.5 pg (25-34); Mean Corpuscular Hgb Conc 34.1 g/dL (32-36); Mean Corpuscular Volume 86.4 fL (80-100); Mean Platelet Volume 9.3 fL (7.4-10.4); Platelet Count 186 K/uL (130-400); RDW Coefficient of Variation 12.3 % (11.5-14.5); RDW Standard Deviation 39.1 fL (36.4-46.3); Red Blood Count 4.85 M/uL (4.7-6.1); White Blood Count 5.38 K/uL (4.8-10.8)
[2020-10-14 08:57] LABS: BUN Creatinine Ratio 15.2 (10-20); Calcium 8.9 mg/dl (8.5-10.1); Creatinine Clr Calc Pharmacy 98.9 ml/min; Est GFR (African American) 93.9 ml/min; Potassium 3.9 mmol/L (3.5-5.1)
[2020-10-14] MEDS: lisinopril 20 MG TAB PO SCH (09:34)
[2020-10-14] MEDS: DICYCLOMINE HCL 10 MG CAP PO SCH ×3 (09:35→20:48)
[2020-10-14] MEDS: PANTOprazole 40 MG in SYRINGE 0 ML IV SCH ×2 (09:35→20:48)
[2020-10-14] MEDS: SIMVASTATIN 10 MG TAB PO SCH (20:47)
--- NOTE | 2020-10-14 21:47 | Hospitalist Progress Note ---
Date of Service October 14, 2020 Assessment & Plan (1) Chest pain: Plan: 60-year-old man with history of recurrent diverticulitis peptic ulcer disease and chronic pain presented for evaluation of chest and abdominal pain with GI bleeding. Per cardiology his discomfort was going on for more than 18 hours without evidence of acute coronary syndrome. Baseline testing including EKG troponins and echocardiogram were unremarkable. Therefore, symptoms are less likely related to a cardiac etiology. Furthermore he underwent a cardiac catheterization in 2016 demonstrating normal anatomy. He was also seen by gastroenterology who is continuing observation as he has had multiple endoscopies for the same issues over the last few years. He most recently had an EGD and colonoscopy within the last 3 months for similar symptoms without significant findings. No further workup this hospitalization wtih stable H/H and tolerating PO. Normal BM today. Patient still reporting severe pain. Bentyl trial not effective because he continues to take oxycodone along with t his. Appears to be drug-seeking. (2) GI bleeding: Plan: Hematochezia has resolved, cont PPI. Restart aspirin. H/H stable, cont per GI as outpatient. ([facility]) (3) Chronic pain: Plan: Chronic pain with narcotic dependence. Typically takes oxycodone 5 mg 4 times daily. Cont encouraging him to try Bentyl for pain. He is requesting higher doses of narcotics and was upset about the dilaudid IV being stopped yesterday. Would avoid intravenous narcotics. (4) HTN (hypertension): Plan: -BP controlled, continue lisinopril (5) DVT prophylaxis: Plan: -SCDs due to GI bleeding Full code Disposition-to home in am if pain better controlled. Patient reports [facility]. Radha Serrato DO [facility] Hospitalist Admission and Anticipated Discharge Date Admission Date: October 12, 2020 Subjective 60 yo M presented with acute centralized abdominal pain with radiation into his chest and through to his back Ongoing abdominal pain per his report that is sharp and now on the right side of his abdomen. My exam reveals no evidence of guarding, distention or any concern. Patient has a questionable history of drug-seeking behavior and multiple times during the interview said he was concerned about asking for more pain medicines because he did not want to seen drug-seeking. Review of Systems Review of Systems: All systems were reviewed and negative except as indicated in HPI above. Physical Exam Physical Exam: CONSTITUTIONAL: WNWD, vitals as above, generally well- appearing, not in distress EYES: normal conjunctivae, no scleral icterus ENT: external ear and nose normal, MMM RESPIRATORY: clear to auscultation bilaterally, no crackles, rales or wheezes, normal respiratory effort CARDIOVASCULAR: regular rate and rhythm, S1 and 2 heard without murmurs, gallops or rubs, no JVD, no peripheral edema GASTROINTESTINAL: soft, TTP generally across abdomen. While he was distracted he was not guarding or tender MUSCULOSKELETAL: strength 5/5 throughout, head is normocephalic and atraumatic SKIN: warm and dry NEUROLOGIC: CN 2-12 grossly intact, normal cognition, normal speech, no tremor PSYCHIATRIC: alert cooperative and oriented to person, place and time. Results & Data Results & Data ([facility]) Vital Signs (Past 12 Hours) Vital Signs Temp Pulse Resp BP Pulse Ox 10/14/20 15:58 36.9 C 70 18 117/76 96 Laboratory Results Short CBC 10/14/20 Range/Units 08:11 WBC 5.38 (4.8-10.8) K/uL Hgb 14.3 (14.0-18.0) g/dL Hct 41.9 L (42-52) % Plt Count 186 (130-400) K/uL BMP 10/14/20 08:11 Sodium 139 Potassium 3.9 Chloride 106 Carbon Dioxide 30 BUN 15 Creatinine 1.01 Glucose 125 H Calcium 8.9 Medications Administered Current Inpatient Medications Acetaminophen (Acetaminophen 325 Mg Tab) 650 mg PO Q4H PRN PRN Reason: Pain or Fever Stop: 11/10/20 22:23 Dicyclomine HCl (Dicyclomine Hcl 10 Mg Cap) 10 mg PO TID VELIA Stop: 11/12/20 20:59 Last Admin: 10/14/20 20:48 Dose: 10 mg Documented by: Pantoprazole Sodium 40 mg/ (Syringe) 10 mls @ 5 mls/min IV BID VELIA Stop: 11/10/20 22:23 Last Admin: 10/14/20 20:48 Dose: 5 mls/min Documented by: Lisinopril (Lisinopril 20 Mg Tab) 20 mg PO QAM VELIA Stop: 11/11/20 08:59 Last Admin: 10/14/20 09:34 Dose: 20 mg Documented by: Nitroglycerin (Nitroglycerin Sl 0.4 Mg/Tab Tab) 0.4 mg SL UD PRN PRN Reason: Chest Pain Stop: 11/10/20 22:23 Ondansetron HCl (Ondansetron Inj 2 Mg/Ml 2 Ml Vial) 4 mg IV Q6H PRN PRN Reason: Nausea Stop: 11/10/20 22:23 Last Admin: 10/13/20 07:37 Dose: 4 mg Documented by: Oxycodone HCl (Oxycodone Hcl Ir 5 Mg Tab (Immediate Release)) 5 - 10 mg PO Q6H PRN PRN Reason: severe pain Stop: 10/26/20 16:59 Last Admin: 10/14/20 21:40 Dose: 10 mg Documented by: Simvastatin (Simvastatin 10 Mg Tab) 10 mg PO HS VELIA Stop: 11/10/20 22:23 Last Admin: 10/14/20 20:47 Dose: 10 mg Documented by: (1) HTN (hypertension) Hypertension type: unspecified Qualified Code(s): I10 - Essential (primary) hypertension
[2020-10-15] MEDS: oxyCODONE HCL IR 5 MG TAB (IMMEDIATE RELEASE) PO PRN ×2 (03:45→09:46)
[2020-10-15] MEDS: PANTOprazole 40 MG in SYRINGE 0 ML IV SCH (08:34)
[2020-10-15] MEDS: lisinopril 20 MG TAB PO SCH (08:34)
[2020-10-15] MEDS: DICYCLOMINE HCL 10 MG CAP PO SCH ×2 (08:34→13:19)
[2020-10-15] MEDS ORDERED: ASPIRIN 81 MG ECTAB PO SCH (09:00)
--- NOTE | 2020-10-15 12:25 | Discharge Summary ---
Date of Service October 15, 2020 Admission HPI Per Admitting Provider 60-year-old male with PMH HTN, recurrent diverticulitis, PUD, chronic pain, and other problems listed below who presents to the ED for evaluation of chest pain, abdominal pain, GI bleeding. Patient reports that for the past 3 days, he has been having coffee-ground emesis and bright red bleeding per rectum. He also reports left-sided abdominal pain that is very similar to his diverticulitis episodes in the past. Today, while resting and watching TV, he developed left arm pain and numbness that radiated into his left shoulder, jaw, and left side of his chest. Patient reports he got up to go the bathroom reports he felt lightheaded and dizzy. Symptoms were worse with exertion. Patient then presented to the ED for further evaluation. Patient denies fevers and chills. No urinary symptoms. In the ED, CTA chest/ABD/pelvis are all unremarkable for acute findings. Initial troponin is negative, EKG does not show any acute ST changes. Patient received Dilaudid 0.5 mg IV x 4 doses, morphine 4 mg IV, and I V Zofran. Admission Exam Per Admitting Provider Constitutional: WD/WN, vitals as above Eyes: PERRL, conjunctivae normal, anicteric sclerae ENMT: external ear and nose normal, oropharynx normal Respiratory: normal respiratory effort, lungs clear to auscultation Cardiovascular: Rate/Rhythm: regular rate and regular rhythm Vessels: normal peripheral pulses Extremities: no edema Chest (Breasts): Additional Comments: Left chest wall tender Gastrointestinal (Abdomen): Inspection/Auscultation: normal bowel sounds Percussion/Palpation: + abdomen tender (Mild, left abdomen) and abdomen soft; no hepatosplenomegaly Musculoskeletal: no cyanosis or clubbing, extremities motor strength 5/5 Skin: no rashes, warm and dry Neurologic: PERRL, EOMI, accommodation nl, no face palsy, no dysarthria Psychiatric: A+Ox3, euthymic affect Principal Diagnosis Acute on chronic abdominal pain Discharge Exam General: A&Ox3 HENT: NCAT, MMM, EOMI Eyes: PERRLA Neck: Supple, normal range of motion CVS: normal rate and rhythm Resp: b/l good breath sounds Abdomen: Soft, ND/NT Extremities: No c/c/e Neuro: face symmetric, no focal deficit Skin: warm and dry, no rashes/lesions/errythema MSK: normal ROM, no joint swelling/erythema Discharge Data Allergies Allergy/AdvReac Type Severity Reaction Status Date / Time ketorolac Allergy Severe SHORTNESS Verified 10/11/20 17:32 OF BREATH,RASH Consultations 10/11/20 19:15 ED Decision to Admit Routine 10/11/20 22:24 Consult Cardiology Routine Consult Gastroenterology Routine Ordered Studies 10/11/20 16:54 CT angio chest dissec wo/w con Stat 10/11/20 16:57 CT angio abdomen pelvis w con Stat Hospital Course (1) Chest pain: 60-year-old man with history of recurrent diverticulitis peptic ulcer disease and chronic pain presented for evaluation of chest and abdominal pain with GI bleeding. Per cardiology his discomfort was going on for more than 18 hours without evidence of acute coronary syndrome. Baseline testing including EKG troponins and echocardiogram were unremarkable. Therefore, symptoms are less likely related to a cardiac etiology. Furthermore he underwent a cardiac catheterization in 2016 demonstrating normal anatomy. He was also seen by gastroenterology who is continuing observation as he has had multiple endoscopies for the same issues over the last few years. He most recently had an EGD and colonoscopy within the last 3 months for similar symptoms without significant findings. On the day of discharge patient was doing okay. Ports his abdominal pain improved. He stated that Benadryl is seems to be helping him. Patient did not have any major complaints. He was tolerating diet. Patient was discharged in stable condition. (2) GI bleeding: Resolved prior to discharge. Hemoglobin remained stable. Patient will need to follow-up with gastroenterology as an outpatient. (3) Chronic pain: Chronic pain with narcotic dependence. Typically takes oxycodone 5 mg 4 times daily. Cont encouraging him to try Bentyl for pain. (4) HTN (hypertension): -BP controlled, continue lisinopril Total Time Total Time Spent Total Time Spent (In Minutes): 25 Discharge Plan Discharge Items Patient Disposition: Home - Self-Care Reason For Visit: CHEST PAIN Discharge Diagnosis: acute on chronic abdominal pain Activity: Resume your previous activity Non-emergency contact: Primary Care Provider Call non-emergency contact if: your symptoms worsen Follow-up/Referrals: Anup Al PA-C [Primary Care Provider] - Diet: Heart Healthy Addtl Attending Provider Instructions: Follow-up with your primary care physician within 1 week. I strongly advised not to drive yourself under the influence of oxycodone. Please have someone drive you home. Pending Studies at Discharge: No Stand-Alone Forms: [facility], Smoking Cessation Medications and DC Order Prescriptions: New dicyclomine 10 mg Capsule 10 mg PO TID Qty: 30 RF: 0 Continued lisinopril 20 mg Tablet 20 mg PO QAM RF: 0 simvastatin 10 mg Tablet 10 mg PO HS RF: 0 aspirin 81 mg Tablet,Delayed Release (Dr/Ec) 81 mg PO DAILY RF: 0 oxycodone 5 mg tablet 5 mg PO Q6H PRN (Reason: Pain) RF: 0 omeprazole 40 mg capsule,delayed release(DR/EC) 40 mg PO DAILYBB RF: 0 Discharge Orders: Discharge Order (Routine); Ordered 10/15/20 Ordered By: Renetta Matson Admission Data Admit Date/Time: 10/12/20 16:58 Attending Provider: Renetta Matson Admit Provider: Hugh Conner Primary Care Provider: Anup Al Other Providers: Prem Ureña Donald S. Other Interventions: Discharge Summary Assessment (RN) Last Done: 10/15/20 13:04
== END 2020-10-15 16:03 | disposition home or self-care (01) | DRG 379 ==
LOC: ED 15:22 → 2S 15:22 → SUATTDRO 19:57 → 2S 21:49 → SUATTDRO 10-12 16:58 → 2W 10-13 12:16

== ENCOUNTER 2021-05-27 19:54 | Observation (INO) ==
[2021-05-27 20:37] LABS: Basophils # (auto) 0.03 K/uL (0-0.2); Basophils % (auto) 0.4 %; Eosinophils # (auto) 0.26 K/uL (0-0.5); Eosinophils % (auto) 3.1 %; Hematocrit (blood only) 41.3 % (42-52); Hemoglobin 14.5 g/dL (14.0-18.0); Immature Granulocytes # (auto) 0.02 K/uL (0.00-0.02); Immature Granulocytes % (auto) 0.2 %; Lymphocytes # (auto) 1.86 K/uL (1.2-3.4); Lymphocytes % (auto) 22.4 %; Mean Corpuscular Hemoglobin 30.3 pg (25-34); Mean Corpuscular Hgb Conc 35.1 g/dL (32-36); Mean Corpuscular Volume 86.2 fL (80-100); Mean Platelet Volume 9.9 fL (7.4-10.4); Monocytes # (auto) 0.87 K/uL (0.11-0.59); Monocytes % (auto) 10.5 %; Neutrophils # (auto) 5.28 K/uL (1.4-6.5); Neutrophils % (auto) 63.4 %; Platelet Count 215 K/uL (130-400); RDW Coefficient of Variation 12.8 % (11.5-14.5); RDW Standard Deviation 40.3 fL (36.4-46.3); Red Blood Count 4.79 M/uL (4.7-6.1); White Blood Count 8.32 K/uL (4.8-10.8)
[2021-05-27] MEDS ORDERED: NITROGLYCERIN SL 0.4 MG/TAB TAB SL STA ×2 (20:45→23:55)
[2021-05-27] MEDS ORDERED: PANTOprazole 80 MG in DEXTROSE 5% 100 ML IV STA (20:45)
[2021-05-27] MEDS ORDERED: GI COCKTAIL ED USE PO ONE (20:45)
[2021-05-27] MEDS ORDERED: MoRPHine SULFATE 4 MG/ML 1 ML CARP\\VIAL IV STA ×2 (20:47→21:43)
[2021-05-27] MEDS ORDERED: ASPIRIN 81 MG CHEW PO STA (20:48)
--- NOTE | 2021-05-27 20:48 | Emergency Department Note ---
Impression & Plan Chest pain, HTN (hypertension), Nausea & vomiting ED Provider Note Provider: Javi Izaguirre MD DATE OF SERVICE: 05/27/2021 CHIEF COMPLAINT: Chest pain, sweating, vomiting HISTORY OF PRESENT ILLNESS: Patient is a 60-year-old gentleman history of ulcer disease, GERD, hypertension, diverticulitis presenting here today reporting onset about 2 and half hours prior to arrival of significant left-sided chest pain with some radiation to the back left neck and left arm. No trauma reported. No pleuritic component. Describes as a pressure with some occasional radiation to the shoulder blades. States he got up warm and sweaty and felt nauseous from a chair sent as this started around 5:30 PM. Vomited once and he thinks there was a trace amount of blood in this. States little bit of minimal epigastric discomfort as well. States he has had some intermittent diarrhea but denies blood to his knowledge in this. Denies significant lower abdominal pain. Patient states occasionally had a bit intermittent leg swelling but not too much at the moment. Again here for further evaluation. Reports significant family history of cardiac disease. REVIEW OF SYSTEMS: A total of 10 review of systems was obtained and negative except as stated above in the HPI. PAST MEDICAL HISTORY: As noted above MEDICATIONS: Reviewed home medications includes a daily aspirin as well as omeprazole. 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 NECK: Trachea midline. Supple. ENT: Mucous membranes pink and moist. LUNGS: Airway patent. No retractions. Breath sounds clear with good air entry bilaterally. HEART: Regular rate and rhythm. No chest wall tenderness ABDOMEN: Soft and non-tender, without guarding or rebound. SKIN: Acyanotic, warm, dry, without rashes EXTREMITIES: Without swelling, tenderness or deformity NEUROLOGICAL: No focal deficits. No aphasia. No facial droop or slurred speech. EK bpm normal sinus rhythm with a left axis. No PVC or PAC. No acute ST segment elevation or depression. QTC 430. CONTINUOUS CARDIAC MONITORING: was ordered and showed a heart rate of 80s-90s bpm in normal sinus rhythm Patient's laboratory studies and imaging reviewed. Differential includes Cardiac ischemia, aortic dissection, pulmonary embolism, pneumothorax, pneumonia, pericarditis, myocarditis, esophageal rupture, GERD, cholecystitis, pancreatitis, musculoskeletal, as well as other pathologies. IMPRESSION/MEDICAL DECISION MAKING: Prior records reviewed with some similar episodes today's events on his last visit/admission. Cath in 2019 with widely patent coronaries it has been assessed here several times including last in September of this year with similar episode. Trace amount of blood reported in the vomiting or the bleed is likely from retching. Given some Protonix but doubt this represents acute GI bleed at this time. Not significantly hypoxic on arrival but is somewhat hypertensive. Given a nitro, aspirin, morphine, GI cocktail and Protonix as well as some Zofran for symptom control. Benign abdomen on exam. Doubt acute intra-abdominal surgical process. CTA the chest to be completed exclude dissection. Lower suspicion this represents PE. CBC reassuring without anemia or leukocytosis. No severe electrolyte abnormality noted. No finding concern for hepatitis or pancreatitis. Negative initial troponin. Patient symptoms improved he said to about 5 out of 10 his nausea resolved on reassessment. Patient given some additional morphine he states the pain started to worsen some. CTA of the chest per radiology report without significant pathology or aortic pathology noted. Doubt this is a significant upper GI bleed but again he did receive some IV Protonix here. Hemoglobin is stable. No further episodes here of vomiting. Patient still with discomfort on reexamination after second dose of morphine. Discussed with him given significant family history and risk factors options of possible further observation versus delta troponin. Patient wished for further observation given his continued pain and additional earlier presentation symptoms. Hospitalist was contacted. Covid test was ordered. DIAGNOSIS: Chest pain, hypertension, nausea and vomiting DISPOSITION: Hospitalist will evaluate Patient was agreeable with this plan. Past Med/Surg History Medical History Acute GI bleeding Avascular necrosis of bone of right hip s/p recent replacement at [facility] CAD (coronary artery disease) Diverticulitis GERD (gastroesophageal reflux disease) HTN (hypertension) Osteoarthritis PUD (peptic ulcer disease) 2018 - gastric ulcer that required clipping Surgical History H/O vasectomy History of total right knee replacement S/P appendectomy S/P cholecystectomy S/P knee replacement S/P tonsillectomy Family History Father Coronary heart disease T2DM (type 2 diabetes mellitus) Mother Pancreatic cancer Hypertension Social History Smoking Status: Never smoker Second Hand Exposure: Yes; Hx Alcohol Use: No Hx Substance Use: No Preferred Language: American Communication Ability: Effective Shoe Lining Fitter Required: No Beliefs That Will Affect Care: None marital status: Current Living Situation: Significant Other Current Living Situation Comment: Girl friend Feels Safe at Home: Yes Assistive Devices: None Allergies Allergies Allergy/AdvReac Type Severity Reaction Status Date / Time ketorolac Allergy Severe SHORTNESS Verified 10/11/20 17:32 OF BREATH,RASH Home Meds Home Medications Medication Instructions Recorded Confirmed lisinopril 20 mg tablet 20 mg PO QAM 03/16/18 10/11/20 simvastatin 10 mg tablet 10 mg PO HS 04/26/20 10/11/20 aspirin 81 mg tablet,delayed 81 mg PO DAILY 10/11/20 10/11/20 release omeprazole 40 mg capsule,delayed 40 mg PO DAILYBB 10/11/20 10/11/20 release oxycodone 5 mg tablet 5 mg PO Q6H PRN 10/11/20 10/11/20 Previous Rx's Medication Instructions Recorded dicyclomine 10 mg capsule 10 mg PO TID #30 cap 10/15/20 Results & Data (ED) Vital Signs Vital Signs - 24 hr 05/27/21 20:02 Temperature 36.3 C L Temperature Source Oral Pulse Rate 90 Respiratory Rate 22 Respiratory Effort / Characteristics Non-Labored Respiratory Depth Normal Respiratory Pattern Regular Blood Pressure 172/85 H Blood Pressure Mean 114 Blood Pressure Position Sitting Pulse Oximetry 98 Oxygen Delivery Method Room Air Sepsis Recent Fever Within 48 Hours No Sepsis New/Unexplained Change in Mental Status N/A Sepsis Action Taken by Nursing No Action Required Laboratory Data Result diagrams: 05/27/21 20:18 05/27/21 21:08 Lab Results 05/27/21 05/27/21 05/27/21 Range/Units 20:18 20:18 20:18 WBC 8.32 (4.8-10.8) K/uL RBC 4.79 (4.7-6.1) M/uL Hgb 14.5 (14.0-18.0) g/dL Hct 41.3 L (42-52) % MCV 86.2 (80-100) fL MCH 30.3 (25-34) pg MCHC 35.1 (32-36) g/dL RDW Std Deviation 40.3 (36.4-46.3) fL RDW Coeff of Kim 12.8 (11.5-14.5) % Plt Count 215 (130-400) K/uL MPV 9.9 (7.4-10.4) fL Immature Gran % (Auto) 0.2 % Neut % (Auto) 63.4 % Lymph % (Auto) 22.4 % Walton % (Auto) 10.5 % Eos % (Auto) 3.1 % Baso % (Auto) 0.4 % Neut # (Auto) 5.28 (1.4-6.5) K/uL Lymph # (Auto) 1.86 (1.2-3.4) K/uL Walton # (Auto) 0.87 H (0.11-0.59) K/uL Eos # (Auto) 0.26 (0-0.5) K/uL Baso # (Auto) 0.03 (0-0.2) K/uL Immature Gran # (Auto) 0.02 (0.00-0.02) K/uL PT 12.1 H (9.0-12.0) Seconds INR 1.1 (0.9-1.1) APTT 26.1 (21.0-31.0) Seconds PTT Ratio 0.9 Sodium 142 (136-145) mmol/L Potassium (3.5-5.1) mmol/L Chloride 110 H (98-107) mmol/L Carbon Dioxide 23 (21-32) mmol/L Anion Gap 9 (3-11) BUN 20 (6-23) mg/dl Creatinine 1.04 (0.6-1.4) mg/dl Est Cr Clr Drug Dosing Not Reportable Est GFR ( Amer) 90.7 ml/min Est GFR (Non-Af Amer) 78.2 ml/min BUN/Creatinine Ratio 19.2 (10-20) Glucose 82 (70-99(Fasting)) mg/dl Calcium 8.6 (8.5-10.1) mg/dl Total Bilirubin 0.4 (0.2-1.0) mg/dl AST (13-39) U/L ALT 23 (7-52) U/L Alkaline Phosphatase 80 (34-104) U/L Troponin I < 0.03 (0-0.04) ng/ml Total Protein 7.0 (6.0-8.3) gm/dl Albumin 4.6 (3.4-5.0) gm/dl Globulin 2.4 L (2.5-4.0) gm/dl Albumin/Globulin Ratio 1.9 (0.9-2) Lipase (11-82) U/L 05/27/21 05/27/21 Range/Units 20:18 21:08 WBC (4.8-10.8) K/uL RBC (4.7-6.1) M/uL Hgb (14.0-18.0) g/dL Hct (42-52) % MCV (80-100) fL MCH (25-34) pg MCHC (32-36) g/dL RDW Std Deviation (36.4-46.3) fL RDW Coeff of Kim (11.5-14.5) % Plt Count (130-400) K/uL MPV (7.4-10.4) fL Immature Gran % (Auto) % Neut % (Auto) % Lymph % (Auto) % Walton % (Auto) % Eos % (Auto) % Baso % (Auto) % Neut # (Auto) (1.4-6.5) K/uL Lymph # (Auto) (1.2-3.4) K/uL Walton # (Auto) (0.11-0.59) K/uL Eos # (Auto) (0-0.5) K/uL Baso # (Auto) (0-0.2) K/uL Immature Gran # (Auto) (0.00-0.02) K/uL PT (9.0-12.0) Seconds INR (0.9-1.1) APTT (21.0-31.0) Seconds PTT Ratio Sodium (136-145) mmol/L Potassium 3.8 (3.5-5.1) mmol/L Chloride (98-107) mmol/L Carbon Dioxide (21-32) mmol/L Anion Gap (3-11) BUN (6-23) mg/dl Creatinine (0.6-1.4) mg/dl Est Cr Clr Drug Dosing Est GFR ( Amer) ml/min Est GFR (Non-Af Amer) ml/min BUN/Creatinine Ratio (10-20) Glucose (70-99(Fasting)) mg/dl Calcium (8.5-10.1) mg/dl Total Bilirubin (0.2-1.0) mg/dl AST 15 (13-39) U/L ALT (7-52) U/L Alkaline Phosphatase (34-104) U/L Troponin I (0-0.04) ng/ml Total Protein (6.0-8.3) gm/dl Albumin (3.4-5.0) gm/dl Globulin (2.5-4.0) gm/dl Albumin/Globulin Ratio (0.9-2) Lipase 31 (11-82) U/L Administered Medications Discontinued Medications Al Hydrox/Mg Hydrox/Simethicone (Gi Cocktail Ed Use) 1 dose PO ONE ONE Stop: 05/27/21 20:46 Last Admin: 05/27/21 20:59 Dose: 1 dose Documented by: [id number] Aspirin (Aspirin 81 Mg Chew) 243 mg PO NOW STA Stop: 05/27/21 20:49 Last Admin: 05/27/21 20:57 Dose: 243 mg Documented by: [id number] Pantoprazole Sodium 80 mg/ (Dextrose) 100 mls @ 400 mls/hr IV ONE STA Stop: 05/27/21 20:59 Last Infusion: 05/27/21 21:57 Dose: 0 mls/hr Documented by: [id number] Admin: 05/27/21 21:24 Dose: 400 mls/hr Documented by: [id number] Ioversol (Optiray 320 125ml) 120 ml IV ONCE ONE Stop: 05/27/21 22:12 Last Admin: 05/27/21 22:14 Dose: 120 ml Documented by: [id number] Morphine Sulfate (Morphine Sulfate 4 Mg/Ml 1 Ml Carp\Vial) 4 mg IV NOW STA Stop: 05/27/21 20:48 Last Admin: 05/27/21 20:52 Dose: 4 mg Documented by: [id number] Morphine Sulfate (Morphine Sulfate 4 Mg/Ml 1 Ml Carp\Vial) 4 mg IV NOW STA Stop: 05/27/21 21:44 Last Admin: 05/27/21 21:54 Dose: 4 mg Documented by: [id number] Nitroglycerin (Nitroglycerin Sl 0.4 Mg/Tab Tab) 0.4 mg SL NOW STA Stop: 05/27/21 20:46 Last Admin: 05/27/21 20:53 Dose: 0.4 mg Documented by: [id number] Ondansetron HCl (Ondansetron Inj 2 Mg/Ml 2 Ml Vial) 4 mg IV NOW STA Stop: 05/27/21 20:52 Last Admin: 05/27/21 20:57 Dose: 4 mg Documented by: [id number] Imaging Data Radiologist's Impression: Chest X-Ray 05/27/21 20:24 SINGLE VIEW CHEST CLINICAL HISTORY: Atypical chest pain. FINDINGS: An AP, portable, upright chest radiograph is compared to chest x-ray and chest CT dated 10/11/2020. The cardiomediastinal silhouette is unremarkable. The lungs and pleural spaces are clear. No pneumothorax is seen. The bony thorax is grossly intact. IMPRESSION: No active disease in the chest. ACT 112: Negative or not required by law. Electronically signed by: Sedrick Francis M.D. 05/27/2021 9:06 PM Discharge Plan Visit Data Chief Complaint: Chest Pain Stated Complaint: chest pain, vomiting blood ED Provider: Javi Izaguirre Discharge Problem: Chest pain, HTN (hypertension), Nausea & vomiting Forms Stand Alone Forms: [facility] [place] Prescriptions Prescriptions: No Action lisinopril 20 mg Tablet 20 mg PO QAM RF: 0 simvastatin 10 mg Tablet 10 mg PO HS RF: 0 aspirin 81 mg Tablet,Delayed Release (Dr/Ec) 81 mg PO DAILY RF: 0 oxycodone 5 mg tablet 5 mg PO Q6H PRN (Reason: Pain) RF: 0 omeprazole 40 mg capsule,delayed release(DR/EC) 40 mg PO DAILYBB RF: 0 dicyclomine 10 mg Capsule 10 mg PO TID Qty: 30 RF: 0 Referrals Referrals: Anup Al PA-C [Primary Care Provider] - Discharge Problem: Chest pain Qualifiers: Chest pain type: unspecified Qualified Code(s): R07.9 - Chest pain, unspecified HTN (hypertension) Qualifiers: Hypertension type: unspecified Qualified Code(s): I10 - Essential (primary) hypertension Nausea & vomiting Qualifiers: Vomiting type: unspecified Qualified Code(s): R11.2 - Nausea with vomiting, unspecified
[2021-05-27 20:49] LABS: INR 1.1 (0.9-1.1); Partial Thromboplastin Ratio 0.9; Partial Thromboplastin Time 26.1 Seconds (21.0-31.0); Prothrombin Time 12.1 Seconds (9.0-12.0)
[2021-05-27] MEDS ORDERED: ONDANSETRON INJ 2 MG/ML 2 ML VIAL IV STA (20:51)
[2021-05-27 20:59] LABS: Troponin I < 0.03 ng/ml (0-0.04)
[2021-05-27 21:06] LABS: Alanine Aminotransferase 23 U/L (7-52); Albumin Globulin Ratio 1.9 (0.9-2); Albumin Level 4.6 gm/dl (3.4-5.0); Alkaline Phosphatase 80 U/L (34-104); Anion Gap 9 (3-11); BUN Creatinine Ratio 19.2 (10-20); Bilirubin,Total 0.4 mg/dl (0.2-1.0); Blood Urea Nitrogen 20 mg/dl (6-23); Calcium 8.6 mg/dl (8.5-10.1); Carbon Dioxide 23 mmol/L (21-32); Chloride 110 mmol/L (98-107); Est GFR (African American) 90.7 ml/min; Est GFR (Non-African American) 78.2 ml/min; Globulin 2.4 gm/dl (2.5-4.0); Glucose 82 mg/dl (70-99(Fasting)); Sodium 142 mmol/L (136-145)
--- NOTE | 2021-05-27 21:07 | XRay Report ---
SINGLE VIEW CHEST CLINICAL HISTORY: Atypical chest pain. FINDINGS: An AP, portable, upright chest radiograph is compared to chest x-ray and chest CT dated 09/14. The cardiomediastinal silhouette is unremarkable. The lungs and pleural spaces are clear. No pneumothorax is seen. The bony thorax is grossly intact. IMPRESSION: No active disease in the chest. ACT 112: Negative or not required by law. Electronically signed by: Sedrick Francis M.D. 05/27/2021 9:06 PM
[2021-05-27 21:41] LABS: Potassium 3.8 mmol/L (3.5-5.1)
[2021-05-27] MEDS ORDERED: OPTIRAY 320 125ml IV ONE (22:11)
--- NOTE | 2021-05-27 22:28 | CT Scan Report ---
CT angio chest dissec wo/w con CLINICAL HISTORY: cp to back, htn TECHNIQUE: Multidetector row helical CT of the chest was performed before and after injection of IV c ontrast. Coronal and sagittal reformations were obtained. Automated dose lowering techniques and/or a djustment according to patient size were utilized for this exam. Comparison: Comparison is made to CTA chest 10/11/2020 FINDINGS: Lungs and pleura: There is a 3 mm nodule in the right lower lobe (series 4 image 151). Heart and pericardium: Heart size is normal. No pericardial effusion. Vessels: No aortic dissection is seen. No pulmonary embolus is seen. Mediastinum and asael: Unremarkable. Chest wall and lower neck: Unremarkable. Abdomen: Unremarkable. Bones: Unremarkable. IMPRESSION: No acute abnormality and in particular no evidence of acute aortic injury. ACT 112: Negative or not required by law. Electronically signed by: Paras Henderson M.D. 05/27/2021 10:27 PM
[2021-05-27] MEDS ORDERED: METOPROLOL TARTRATE 1 MG/ML VIAL IV STA (22:34)
[2021-05-27 23:03] LABS: Hematocrit (blood only) 40.1 % (42-52); Hemoglobin 14.1 g/dL (14.0-18.0)
[2021-05-27 23:13] LABS: Partial Thromboplastin Time 26.8 Seconds (21.0-31.0)
[2021-05-27 23:29] LABS: Troponin I < 0.03 ng/ml (0-0.04)
[2021-05-27 23:37] LABS: Magnesium 1.9 mg/dl (1.7-2.4)
[2021-05-28] MEDS ORDERED: oxyCODONE HCL IR 5 MG TAB (IMMEDIATE RELEASE) PO PRN (00:30)
--- NOTE | 2021-05-28 00:30 | History & Physical Report ---
Date of Service May 28, 2021 Assessment & Plan (1) Chest pain: Plan: Possibly from uncontrolled hypertension Rule out ACS given nitro relief and CAD risk factors Recurrent UGI B History PUD as per records Patient currently hemodynamically stable hyperlipidemia on statin Rx Old CVA on CAT scan initial read chronic pain past tobacco abuse OBS PCU Add amlodipine to lisinopril Follow troponin Cardiology consult Re: Chest pain IV PPI for UGI B GI consult Re: Recurrent UGIB Follow H&H, transfuse PRBC if hemoglobin less than 8 and or for symptomatic anemia N.p.o. until patient seen by cardiology and GI services in anticipation of procedure DVT prophylaxis. SCDs Re: GI bleed Full code Text document was generated using [email or web address] voice recognition software. It may contain grammatical or spelling errors. Kindly contact undersigned for clarification of any documentation item in question. History of Present Illness Chief Complaint: Chest pain, hematemesis Primary Care Provider: Anup Al PA-C History obtained from patient and records. Medical history significant for hypertension, hyperlipidemia, PUD, recurrent diverticulitis, chronic pain, past tobacco abuse. Last confinement September 2020 for chest pain associated with GI bleed. No ACS as per cardiology. No GI endoscopy during confinement. Last week, patient noted dark stools without abdominal pain complaints. Yesterday afternoon, patient noted achy left-sided chest pain going to his neck and left arm with shortness of breath and diaphoresis. No unusual cough symptoms. No headache complaints. Patient subsequently had hematemesis with specks of blood with achy upper abdominal pain. Chest pain partially relieved by nitroglycerin at the ER. 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 Allergies Allergy/AdvReac Type Severity Reaction Status Date / Time ketorolac Allergy Severe SHORTNESS Verified 05/27/21 22:59 OF BREATH,RASH Home Medications Medication Instructions Recorded Confirmed Type lisinopril 20 mg tablet 20 mg PO QAM 03/16/18 05/27/21 History simvastatin 10 mg tablet 10 mg PO HS 04/26/20 05/27/21 History aspirin 81 mg tablet,delayed 81 mg PO DAILY 10/11/20 05/27/21 History release omeprazole 40 mg capsule,delayed 40 mg PO DAILYBB 10/11/20 05/27/21 History release oxycodone 5 mg tablet 5 mg PO Q6H PRN 10/11/20 05/27/21 History Past Med/Surg History Medical History Acute GI bleeding Avascular necrosis of bone of right hip s/p recent replacement at [facility] CAD (coronary artery disease) Diverticulitis GERD (gastroesophageal reflux disease) HTN (hypertension) Osteoarthritis PUD (peptic ulcer disease) 2018 - gastric ulcer that required clipping Surgical History H/O vasectomy History of total right knee replacement S/P appendectomy S/P cholecystectomy S/P knee replacement S/P tonsillectomy Family History Father Coronary heart disease T2DM (type 2 diabetes mellitus) Mother Pancreatic cancer Hypertension Social History Smoking Status: Never smoker Second Hand Exposure: Yes; Hx Alcohol Use: Yes Hx Substance Use: No Preferred Language: Armenian Communication Ability: Effective Cloth Shearer Required: No Beliefs That Will Affect Care: None marital status: Current Living Situation: Significant Other Current Living Situation Comment: Girl friend Feels Safe at Home: Yes Safety Concerns: Feels Safe At This Time Assistive Devices: None Review of Systems Review of Systems: As per HPI, all 10 systems reviewed, all other ROS negative Physical Exam Physical Exam: GENERAL: Comfortable, pleasant, obese, no respiratory distress SKIN: Normal color, warm HEENT: Alopecia, [place] palpebral conjunctivae, no ptosis, lip asymmetry (unknown duration), moist buccal mucosa NECK : Supple, short neck, no tenderness CHEST : CTA, no tenderness HEART : RRR, no obvious murmurs ABDOMEN: Some distention, nontender EXTREMITIES : No LE swelling/tenderness, no other conspicuous deformities noted NEUROLOGIC : Coherent, no facial asymmetry, no other gross focality Results & Data Results & Data ([facility]) Vital Signs (Past 12 Hours) Vital Signs Temp Pulse Pulse Resp BP BP Pulse Ox 05/28/21 00:10 79 16 128/84 96 05/27/21 23:14 74 16 133/89 95 05/27/21 23:13 74 133/89 05/27/21 20:02 36.3 C L 90 22 172/85 H 98 Laboratory Results Laboratory Results WBC 8.32 K/uL (4.8-10.8) 05/27/21 20:18 RBC 4.79 M/uL (4.7-6.1) 05/27/21 20:18 Hgb 14.1 g/dL (14.0-18.0) 05/27/21 22:51 Hct 40.1 % (42-52) L 05/27/21 22:51 MCV 86.2 fL (80-100) 05/27/21 20:18 MCH 30.3 pg (25-34) 05/27/21 20:18 MCHC 35.1 g/dL (32-36) 05/27/21 20:18 RDW Std Deviation 40.3 fL (36.4-46.3) 05/27/21 20:18 RDW Coeff of Kim 12.8 % (11.5-14.5) 05/27/21 20:18 Plt Count 215 K/uL (130-400) 05/27/21 20:18 MPV 9.9 fL (7.4-10.4) 05/27/21 20:18 Immature Gran % (Auto) 0.2 % 05/27/21 20:18 Neut % (Auto) 63.4 % 05/27/21 20:18 Lymph % (Auto) 22.4 % 05/27/21 20:18 [place] % (Auto) 10.5 % 05/27/21 20:18 Eos % (Auto) 3.1 % 05/27/21 20:18 Baso % (Auto) 0.4 % 05/27/21 20:18 Neut # (Auto) 5.28 K/uL (1.4-6.5) 05/27/21 20:18 Lymph # (Auto) 1.86 K/uL (1.2-3.4) 05/27/21 20:18 Harlan # (Auto) 0.87 K/uL (0.11-0.59) H 05/27/21 20:18 Eos # (Auto) 0.26 K/uL (0-0.5) 05/27/21 20:18 Baso # (Auto) 0.03 K/uL (0-0.2) 05/27/21 20:18 Immature Gran # (Auto) 0.02 K/uL (0.00-0.02) 05/27/21 20:18 PT 12.1 Seconds (9.0-12.0) H 05/27/21 20:18 INR 1.1 (0.9-1.1) 05/27/21 20:18 APTT 26.8 Seconds (21.0-31.0) 05/27/21 22:51 PTT Ratio 1.0 05/27/21 22:51 Sodium 142 mmol/L (136-145) 05/27/21 20:18 Potassium 3.8 mmol/L (3.5-5.1) 05/27/21 21:08 Chloride 110 mmol/L (98-107) H 05/27/21 20:18 Carbon Dioxide 23 mmol/L (21-32) 05/27/21 20:18 Anion Gap 9 (3-11) 05/27/21 20:18 BUN 20 mg/dl (6-23) 05/27/21 20:18 Creatinine 1.04 mg/dl (0.6-1.4) 05/27/21 20:18 Est Cr Clr Drug Dosing Not Reportable 05/27/21 20:18 Est GFR ( Amer) 90.7 ml/min 05/27/21 20:18 Est GFR (Non-Af Amer) 78.2 ml/min 05/27/21 20:18 BUN/Creatinine Ratio 19.2 (10-20) 05/27/21 20:18 Glucose 82 mg/dl (70-99(Fasting)) 05/27/21 20:18 Calcium 8.6 mg/dl (8.5-10.1) 05/27/21 20:18 Magnesium 1.9 mg/dl (1.7-2.4) 05/27/21 22:51 Total Bilirubin 0.4 mg/dl (0.2-1.0) 05/27/21 20:18 AST 15 U/L (13-39) 05/27/21 21:08 ALT 23 U/L (7-52) 05/27/21 20:18 Alkaline Phosphatase 80 U/L (34-104) 05/27/21 20:18 Troponin I < 0.03 ng/ml (0-0.04) 05/27/21 22:51 Total Protein 7.0 gm/dl (6.0-8.3) 05/27/21 20:18 Albumin 4.6 gm/dl (3.4-5.0) 05/27/21 20:18 Globulin 2.4 gm/dl (2.5-4.0) L 05/27/21 20:18 Albumin/Globulin Ratio 1.9 (0.9-2) 05/27/21 20:18 Lipase 31 U/L (11-82) 05/27/21 20:18 SARS-CoV-2, RNA, NAAT NEGATIVE (NEGATIVE) 05/27/21 22:38 Blood Type O Negative 05/27/21 22:51 Antibody Screen NEGATIVE 05/27/21 22:51 Impressions Chest X-Ray 05/27/21 20:24 SINGLE VIEW CHEST CLINICAL HISTORY: Atypical chest pain. FINDINGS: An AP, portable, upright chest radiograph is compared to chest x-ray and chest CT dated 10/11/2020. The cardiomediastinal silhouette is unremarkable. The lungs and pleural spaces are clear. No pneumothorax is seen. The bony thorax is grossly intact. IMPRESSION: No active disease in the chest. ACT 112: Negative or not required by law. Electronically signed by: Sedrick Francis M.D. 05/27/2021 9:06 PM Chest CTA 05/27/21 20:46 CT angio chest dissec wo/w con CLINICAL HISTORY: cp to back, htn TECHNIQUE: Multidetector row helical CT of the chest was performed before and after injection of IV contrast. Coronal and sagittal reformations were obtained. Automated dose lowering techniques and/or adjustment according to patient size were utilized for this exam. Comparison: Comparison is made to CTA chest 10/11/2020 FINDINGS: Lungs and pleura: There is a 3 mm nodule in the right lower lobe (series 4 image 151). Heart and pericardium: Heart size is normal. No pericardial effusion. Vessels: No aortic dissection is seen. No pulmonary embolus is seen. Mediastinum and asael: Unremarkable. Chest wall and lower neck: Unremarkable. Abdomen: Unremarkable. Bones: Unremarkable. IMPRESSION: No acute abnormality and in particular no evidence of acute aortic injury. ACT 112: Negative or not required by law. Electronically signed by: Paras Henderson M.D. 05/27/2021 10:[address] head initial read: No acute intracranial hemorrhage, extra-axial fluid collection or mass-effect. No CT evidence of acute territorial infarct. Small focus of hypoattenuation of the left basal ganglia mayrepresent sequela of a remote lacunar infarct. If there is clinical concern for an acute lacunar infarct an MRI of the brain maybe obtained to better evaluate. CT abdomen pelvis initial read: No acute findings in the abdomen or pelvis. No hydronephrosis. Pancreas, liver and kidneys are unremarkable. Incidental findings: 14 mmright adrenal adenoma. Status post cholecystectomy. Splenomegaly. Diverticulosis most pronounced involving the ascending and sigmoid colon without evidence of acute diverticulitis. Status post appendectomy. EKG as per my interpretation: Rate 90, NSR, LAD, LAFB, no ischemia (1) Chest pain Chest pain type: unspecified Qualified Code(s): R07.9 - Chest pain, unspecified
[2021-05-28] MEDS ORDERED: ACETAMINOPHEN 325 MG TAB PO PRN (02:08)
[2021-05-28] MEDS: MoRPHine SULFATE 4 MG/ML 1 ML CARP\\VIAL IV PRN ×7 (02:30→22:23)
[2021-05-28] MEDS: D5W AND LACTATED RINGERS 1,000 ML IV SCH ×2 (02:35→22:28)
[2021-05-28] MEDS: lisinopril 40 MG TAB PO SCH (05:43)
[2021-05-28 05:53] LABS: Basophils # (auto) 0.01 K/uL (0-0.2); Basophils % (auto) 0.2 %; Eosinophils % (auto) 3.4 %; Hematocrit (blood only) 37.7 % (42-52); Hemoglobin 13.3 g/dL (14.0-18.0); Immature Granulocytes # (auto) 0.01 K/uL (0.00-0.02); Immature Granulocytes % (auto) 0.2 %; Lymphocytes # (auto) 1.49 K/uL (1.2-3.4); Lymphocytes % (auto) 25.3 %; Mean Corpuscular Hemoglobin 30.4 pg (25-34); Mean Corpuscular Hgb Conc 35.3 g/dL (32-36); Mean Corpuscular Volume 86.3 fL (80-100); Mean Platelet Volume 9.5 fL (7.4-10.4); Monocytes # (auto) 0.56 K/uL (0.11-0.59); Monocytes % (auto) 9.5 %; Neutrophils # (auto) 3.62 K/uL (1.4-6.5); Neutrophils % (auto) 61.4 %; Platelet Count 183 K/uL (130-400); RDW Standard Deviation 41.4 fL (36.4-46.3); Red Blood Count 4.37 M/uL (4.7-6.1); White Blood Count 5.89 K/uL (4.8-10.8)
[2021-05-28 06:14] LABS: Partial Thromboplastin Time 27.6 Seconds (21.0-31.0)
[2021-05-28 06:22] LABS: Anion Gap 3 (3-11); BUN Creatinine Ratio 22.1 (10-20); Blood Urea Nitrogen 19 mg/dl (6-23); Calcium 8.8 mg/dl (8.5-10.1); Carbon Dioxide 28 mmol/L (21-32); Chloride 109 mmol/L (98-107); Chol HDL Ratio 2.7 (0-5); Cholesterol 95 mg/dl (0-200); Est GFR (Non-African American) 94.9 ml/min; Glucose 93 mg/dl (70-99(Fasting)); HDL Cholesterol 35 mg/dl; LDL Cholesterol Calculated 45 mg/dl; Potassium 4.5 mmol/L (3.5-5.1); Sodium 140 mmol/L (136-145); Triglycerides 77 mg/dl (0-150); VLDL Cholesterol 15 mg/dl (0-30)
--- NOTE | 2021-05-28 07:13 | CT Scan Report ---
ABDOMEN AND PELVIS CT WITHOUT CONTRAST CT DOSE: 2357.05 mGy.cm HISTORY: Acute generalized abdominal pain and distention. Prior appendectomy. abd pain TECHNIQUE: Multiaxial CT images of the abdomen and pelvis were performed without contrast. A dose lo wering technique was utilized adhering to the principles of ALARA. COMPARISON STUDY: CTA chest of same day, CTA of the abdomen and pelvis 10/11/2020 FINDINGS: The imaged inferior cardiac chambers are unremarkable with coronary artery calcifications. Clear lung bases. No pneumatosis or pneumoperitoneum. The spleen is enlarged, 14.3 cm. The pancreas, adrenal glands and liver appear unremarkable. Cholecystectomy. Contrast is present within the renal collecting systems and decompressed urinary bladder lumen second ml to the CTA of the chest performed a few hours earlier. There are a few small presumed cysts withi n the left kidney measuring up to 8 mm. No hydronephrosis. No filling defects identified within the c ollecting systems or ureters. Mild prostamegaly. No abdominal aortic aneurysm or lymphadenopathy. Unchanged linear metallic density structure within the mid stomach may be on a postoperative basis. C olonic diverticulosis without acute diverticulitis. No bowel obstruction or bowel wall thickening. Ap pendectomy. No ascites or mesenteric inflammation. Unremarkable soft tissues. Right hip arthroplasty. No acute fracture. IMPRESSION: 1. No acute intra-abdominal or intrapelvic abnormality. 2. No bowel obstruction or bowel wall thickening. 3. Prior cholecystectomy and appendectomy. ACT 112: Negative or not required by law. The above report was generated using voice recognition software. It may contain grammatical, syntax o r spelling errors. Electronically signed by: Yoandy Batres M.D. 05/28/2021 7:11 AM
--- NOTE | 2021-05-28 07:21 | CT Scan Report ---
CT OF THE HEAD WITHOUT CONTRAST CLINICAL HISTORY: lip asymmetry COMPARISON STUDY: No previous studies for comparison. TECHNIQUE: Helical axial images of the head were obtained without IV contrast. Automated exposure con trol was utilized for the study. A dose lowering technique was utilized adhering to the principles o f ALARA. FINDINGS: Note is made of intravascular contrast from recent contrast-enhanced chest CT. No acute int racranial hemorrhage, midline shift or mass effect is present. Mild ventricular dilatation is likely due to central atrophy. The basal cisterns are patent. No extra-axial collections are present. There are no findings to suggest acute dural sinus thrombosis or acute territorial infarct. No significant calvarial abnormalities are present. Visualized portions of the sinuses and mastoid air cells are krish ar. IMPRESSION: No acute intracranial findings. ACT 112: Negative or not required by law. Electronically signed by: Lonnie Rubio M.D. 05/28/2021 7:19 AM
[2021-05-28] MEDS: NITROGLYCERIN SL 0.4 MG/TAB TAB SL PRN ×2 (07:24→07:30)
[2021-05-28] MEDS: amLODIPine BESYLATE 5 MG TAB PO SCH (07:29)
[2021-05-28] MEDS: PANTOprazole 40 MG in SYRINGE 0 ML IV SCH ×2 (07:29→20:14)
[2021-05-28] MEDS ORDERED: lisinopril 20 MG TAB PO SCH (09:00)
--- NOTE | 2021-05-28 09:06 | Gastrointestinal Consultation ---
Date of Consultation May 28, 2021 Assessment & Plan (1) Nausea & vomitin60 year old male admitted w/ abdominal pain, nausea/vomiting, hematemesis x 2 without any change in bowel habits. He has chronic abd pain, vomiting. He does not recall having a GES in the past HGB stable VSS stable IV PPI BID x 48 hours Then PO PPI Trend HGB Document output No plan for EGD unless acute change clinically Can arrange GES Thank you for allowing us to participate in the care of this patient. Please call with any acute changes, questions or concerns. Please see addendum below with additional recommendation from my supervising physician. (2) Generalized abdominal pain: Supervising Physician Co-Signing Physician Notes Consult for nausea/vomiting in the setting of known gastroparesis. ? recent diarrhea- PE - well nourished male in nad, HEENT - perrla, abd - obese soft nt nd Labs reviewed GES tomorrow, small frequent meals, stool culture and c diff if diarrhea. History of Present Illness Reason for Consultation: abd pain Requesting Physician: Melissa Attending Physician: Kash Torres MD History of Present Illness 60 year old male with history of HTN, diverticular disease, PUD 2018, GERD, on narcotics for chronic painadmitted through the ED with upper abd pain, bandlike, onset 48 hours okay. Associated with nausea/vomiting and hematemesis x 2 occurences, bright red blood. Notes no vomiting today but ongoing discomfort. No change in bowel habits. No fever, chills, CP, SOB. CTAP 2021: No acute intra-abdominal or intrapelvic abnormality. No bowel obstruction or bowel wall thickening.. Prior cholecystectomy and appendectomy. Last EGD 08/29/20: - Normal esophagus. - Z-line regular, 38 cm from the incisors. - Gastritis, likely related to medications (biopsied in past). - Multiple gastric polyps, fundic polyps based on prior biopsies. - An endoclip was found in the stomach. - Normal examined duodenum. - Non-bleeding duodenal diverticulum. - No specimens collected. EUS 08/29/20: Evidence of a cholecystectomy. - There was no sign of significant pathology in the common bile duct. - There was no evidence of significant pathology in the visualized portion of the liver. - There was no sign of significant pathology in the entire pancreas. - Endosonographic images of the left adrenal gland were unremarkable. - Retained endoscopic clip in the gastric body (stomach otherwise normal) Colonoscopy 06/2020: - The examined portion of the ileum was normal. - Moderate diverticulosis in the sigmoid colon, in the descending colon and in the ascending colon. - Internal hemorrhoids. - The examination was otherwise normal. - No specimens collected. Repeat 10 years Allergies Allergy/AdvReac Type Severity Reaction Status Date / Time ketorolac Allergy Severe SHORTNESS Verified 05/27/21 22:59 OF BREATH,RASH Home Medications Medication Instructions Recorded Confirmed Type lisinopril 20 mg tablet 20 mg PO QAM 03/16/18 05/27/21 History simvastatin 10 mg tablet 10 mg PO HS 04/26/20 05/27/21 History aspirin 81 mg tablet,delayed 81 mg PO DAILY 10/11/20 05/27/21 History release omeprazole 40 mg capsule,delayed 40 mg PO DAILYBB 10/11/20 05/27/21 History release oxycodone 5 mg tablet 5 mg PO Q6H PRN 10/11/20 05/27/21 History Patient History Medical History Acute GI bleeding Avascular necrosis of bone of right hip s/p recent replacement at [facility] CAD (coronary artery disease) Diverticulitis GERD (gastroesophageal reflux disease) HTN (hypertension) Osteoarthritis PUD (peptic ulcer disease) 2018 - gastric ulcer that required clipping Surgical History H/O vasectomy History of total right knee replacement S/P appendectomy S/P cholecystectomy S/P knee replacement S/P tonsillectomy Family History Father Coronary heart disease T2DM (type 2 diabetes mellitus) Mother Pancreatic cancer Hypertension Social History Smoking Status: Never smoker Second Hand Exposure: Yes; Hx Alcohol Use: Yes Hx Substance Use: No Preferred Language: Lao Communication Ability: Effective 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 Required: No Beliefs That Will Affect Care: None marital status: Current Living Situation: Significant Other Current Living Situation Comment: Girl friend Feels Safe at Home: Yes Safety Concerns: Feels Safe At This Time Assistive Devices: None Review of Systems Review of Systems: All systems reviewed & are unremarkable except as noted in HPI & below Physical Exam Constitutional: WD/WN, vitals as above Neck: trachea midline, no thyromegaly Respiratory: normal respiratory effort, lungs clear to auscultation Cardiovascular: Rate/Rhythm: regular rate and regular rhythm Gastrointestinal (Abdomen): normal bowel sounds, soft, nontender, no hep atosplenomegaly Results & Data ([facility]) Vital Signs (Past 12 Hours) Vital Signs Temp Pulse Pulse Resp BP BP BP 05/28/21 07:53 36.5 C 75 18 141/88 H 05/28/21 07:34 77 18 126/75 05/28/21 07:20 36.5 C 75 18 141/88 H 05/28/21 02:54 88 05/28/21 02:08 36.5 C 74 20 181/96 H 05/28/21 01:49 87 16 123/85 05/28/21 00:10 79 16 128/84 05/27/21 23:14 74 16 133/89 05/27/21 23:13 74 133/89 Pulse Ox 05/28/21 07:53 99 05/28/21 07:34 05/28/21 07:20 99 05/28/21 02:54 05/28/21 02:08 99 05/28/21 01:49 97 05/28/21 00:10 96 05/27/21 23:14 95 05/27/21 23:13 Laboratory Results 05/28/21 05/28/21 05/28/21 Range/Units 05:33 05:33 05:33 WBC 5.89 (4.8-10.8) K/uL RBC 4.37 L (4.7-6.1) M/uL Hgb 13.3 L (14.0-18.0) g/dL Hct 37.7 L (42-52) % MCV 86.3 (80-100) fL MCH 30.4 (25-34) pg MCHC 35.3 (32-36) g/dL RDW Std Deviation 41.4 (36.4-46.3) fL RDW Coeff of Kim 13.0 (11.5-14.5) % Plt Count 183 (130-400) K/uL MPV 9.5 (7.4-10.4) fL Immature Gran % (Auto) 0.2 % Neut % (Auto) 61.4 % Lymph % (Auto) 25.3 % [place] % (Auto) 9.5 % Eos % (Auto) 3.4 % Baso % (Auto) 0.2 % Neut # (Auto) 3.62 (1.4-6.5) K/uL Lymph # (Auto) 1.49 (1.2-3.4) K/uL [place] # (Auto) 0.56 (0.11-0.59) K/uL Eos # (Auto) 0.20 (0-0.5) K/uL Baso # (Auto) 0.01 (0-0.2) K/uL Immature Gran # (Auto) 0.01 (0.00-0.02) K/uL PT (9.0-12.0) Seconds INR (0.9-1.1) APTT 27.6 (21.0-31.0) Seconds PTT Ratio 1.0 Sodium 140 (136-145) mmol/L Potassium 4.5 (3.5-5.1) mmol/L Chloride 109 H (98-107) mmol/L Carbon Dioxide 28 (21-32) mmol/L Anion Gap 3 (3-11) BUN 19 (6-23) mg/dl Creatinine 0.86 (0.6-1.4) mg/dl Est Cr Clr Drug Dosing Not Reportable Est GFR ( Amer) 110.0 ml/min Est GFR (Non-Af Amer) 94.9 ml/min BUN/Creatinine Ratio 22.1 H (10-20) Glucose 93 (70-99(Fasting)) mg/dl Calcium 8.8 (8.5-10.1) mg/dl Magnesium (1.7-2.4) mg/dl Total Bilirubin (0.2-1.0) mg/dl AST (13-39) U/L ALT (7-52) U/L Alkaline Phosphatase (34-104) U/L Troponin I (0-0.04) ng/ml Total Protein (6.0-8.3) gm/dl Albumin (3.4-5.0) gm/dl Globulin (2.5-4.0) gm/dl Albumin/Globulin Ratio (0.9-2) Triglycerides 77 (0-150) mg/dl Cholesterol 95 (0-200) mg/dl LDL Cholesterol, Calc 45 mg/dl VLDL Cholesterol, Calc 15 (0-30) mg/dl HDL Cholesterol 35 mg/dl Cholesterol/HDL Ratio 2.7 (0-5) Lipase (11-82) U/L SARS-CoV-2, RNA, NAAT (NEGATIVE) Blood Type Antibody Screen 05/27/21 05/27/21 05/27/21 Range/Units 22:51 22:51 22:51 WBC (4.8-10.8) K/uL RBC (4.7-6.1) M/uL Hgb 14.1 (14.0-18.0) g/dL Hct 40.1 L (42-52) % MCV (80-100) fL MCH (25-34) pg MCHC (32-36) g/dL RDW Std Deviation (36.4-46.3) fL RDW Coeff of Kim (11.5-14.5) % Plt Count (130-400) K/uL MPV (7.4-10.4) fL Immature Gran % (Auto) % Neut % (Auto) % Lymph % (Auto) % [place] % (Auto) % Eos % (Auto) % Baso % (Auto) % Neut # (Auto) (1.4-6.5) K/uL Lymph # (Auto) (1.2-3.4) K/uL [place] # (Auto) (0.11-0.59) K/uL Eos # (Auto) (0-0.5) K/uL Baso # (Auto) (0-0.2) K/uL Immature Gran # (Auto) (0.00-0.02) K/uL PT (9.0-12.0) Seconds INR (0.9-1.1) APTT 26.8 (21.0-31.0) Seconds PTT Ratio 1.0 Sodium (136-145) mmol/L Potassium (3.5-5.1) mmol/L Chloride (98-107) mmol/L Carbon Dioxide (21-32) mmol/L Anion Gap (3-11) BUN (6-23) mg/dl Creatinine (0.6-1.4) mg/dl Est Cr Clr Drug Dosing Est GFR ( Amer) ml/min Est GFR (Non-Af Amer) ml/min BUN/Creatinine Ratio (10-20) Glucose (70-99(Fasting)) mg/dl Calcium (8.5-10.1) mg/dl Magnesium (1.7-2.4) mg/dl Total Bilirubin (0.2-1.0) mg/dl AST (13-39) U/L ALT (7-52) U/L Alkaline Phosphatase (34-104) U/L Troponin I (0-0.04) ng/ml Total Protein (6.0-8.3) gm/dl Albumin (3.4-5.0) gm/dl Globulin (2.5-4.0) gm/dl Albumin/Globulin Ratio (0.9-2) Triglycerides (0-150) mg/dl Cholesterol (0-200) mg/dl LDL Cholesterol, Calc mg/dl VLDL Cholesterol, Calc (0-30) mg/dl HDL Cholesterol mg/dl Cholesterol/HDL Ratio (0-5) Lipase (11-82) U/L SARS-CoV-2, RNA, NAAT (NEGATIVE) Blood Type O Negative Antibody Screen NEGATIVE 05/27/21 05/27/21 05/27/21 Range/Units 22:51 22:38 21:08 WBC (4.8-10.8) K/uL RBC (4.7-6.1) M/uL Hgb (14.0-18.0) g/dL Hct (42-52) % MCV (80-100) fL MCH (25-34) pg MCHC (32-36) g/dL RDW Std Deviation (36.4-46.3) fL RDW Coeff of Kim (11.5-14.5) % Plt Count (130-400) K/uL MPV (7.4-10.4) fL Immature Gran % (Auto) % Neut % (Auto) % Lymph % (Auto) % [place] % (Auto) % Eos % (Auto) % Baso % (Auto) % Neut # (Auto) (1.4-6.5) K/uL Lymph # (Auto) (1.2-3.4) K/uL [place] # (Auto) (0.11-0.59) K/uL Eos # (Auto) (0-0.5) K/uL Baso # (Auto) (0-0.2) K/uL Immature Gran # (Auto) (0.00-0.02) K/uL PT (9.0-12.0) Seconds INR (0.9-1.1) APTT (21.0-31.0) Seconds PTT Ratio Sodium (136-145) mmol/L Potassium 3.8 (3.5-5.1) mmol/L Chloride (98-107) mmol/L Carbon Dioxide (21-32) mmol/L Anion Gap (3-11) BUN (6-23) mg/dl Creatinine (0.6-1.4) mg/dl Est Cr Clr Drug Dosing Est GFR ( Amer) ml/min Est GFR (Non-Af Amer) ml/min BUN/Creatinine Ratio (10-20) Glucose (70-99(Fasting)) mg/dl Calcium (8.5-10.1) mg/dl Magnesium 1.9 (1.7-2.4) mg/dl Total Bilirubin (0.2-1.0) mg/dl AST 15 (13-39) U/L ALT (7-52) U/L Alkaline Phosphatase (34-104) U/L Troponin I < 0.03 (0-0.04) ng/ml Total Protein (6.0-8.3) gm/dl Albumin (3.4-5.0) gm/dl Globulin (2.5-4.0) gm/dl Albumin/Globulin Ratio (0.9-2) Triglycerides (0-150) mg/dl Cholesterol (0-200) mg/dl LDL Cholesterol, Calc mg/dl VLDL Cholesterol, Calc (0-30) mg/dl HDL Cholesterol mg/dl Cholesterol/HDL Ratio (0-5) Lipase (11-82) U/L SARS-CoV-2, RNA, NAAT NEGATIVE (NEGATIVE) Blood Type Antibody Screen 05/27/21 05/27/21 05/27/21 Range/Units 20:18 20:18 20:18 WBC (4.8-10.8) K/uL RBC (4.7-6.1) M/uL Hgb (14.0-18.0) g/dL Hct (42-52) % MCV (80-100) fL MCH (25-34) pg MCHC (32-36) g/dL RDW Std Deviation (36.4-46.3) fL RDW Coeff of Kim (11.5-14.5) % Plt Count (130-400) K/uL MPV (7.4-10.4) fL Immature Gran % (Auto) % Neut % (Auto) % Lymph % (Auto) % [place] % (Auto) % Eos % (Auto) % Baso % (Auto) % Neut # (Auto) (1.4-6.5) K/uL Lymph # (Auto) (1.2-3.4) K/uL [place] # (Auto) (0.11-0.59) K/uL Eos # (Auto) (0-0.5) K/uL Baso # (Auto) (0-0.2) K/uL Immature Gran # (Auto) (0.00-0.02) K/uL PT 12.1 H (9.0-12.0) Seconds INR 1.1 (0.9-1.1) APTT 26.1 (21.0-31.0) Seconds PTT Ratio 0.9 Sodium 142 (136-145) mmol/L Potassium (3.5-5.1) mmol/L Chloride 110 H (98-107) mmol/L Carbon Dioxide 23 (21-32) mmol/L Anion Gap 9 (3-11) BUN 20 (6-23) mg/dl Creatinine 1.04 (0.6-1.4) mg/dl Est Cr Clr Drug Dosing Not Reportable Est GFR ( Amer) 90.7 ml/min Est GFR (Non-Af Amer) 78.2 ml/min BUN/Creatinine Ratio 19.2 (10-20) Glucose 82 (70-99(Fasting)) mg/dl Calcium 8.6 (8.5-10.1) mg/dl Magnesium (1.7-2.4) mg/dl Total Bilirubin 0.4 (0.2-1.0) mg/dl AST (13-39) U/L ALT 23 (7-52) U/L Alkaline Phosphatase 80 (34-104) U/L Troponin I < 0.03 (0-0.04) ng/ml Total Protein 7.0 (6.0-8.3) gm/dl Albumin 4.6 (3.4-5.0) gm/dl Globulin 2.4 L (2.5-4.0) gm/dl Albumin/Globulin Ratio 1.9 (0.9-2) Triglycerides (0-150) mg/dl Cholesterol (0-200) mg/dl LDL Cholesterol, Calc mg/dl VLDL Cholesterol, Calc (0-30) mg/dl HDL Cholesterol mg/dl Cholesterol/HDL Ratio (0-5) Lipase 31 (11-82) U/L SARS-CoV-2, RNA, NAAT (NEGATIVE) Blood Type Antibody Screen 05/27/21 Range/Units 20:18 WBC 8.32 (4.8-10.8) K/uL RBC 4.79 (4.7-6.1) M/uL Hgb 14.5 (14.0-18.0) g/dL Hct 41.3 L (42-52) % MCV 86.2 (80-100) fL MCH 30.3 (25-34) pg MCHC 35.1 (32-36) g/dL RDW Std Deviation 40.3 (36.4-46.3) fL RDW Coeff of Kim 12.8 (11.5-14.5) % Plt Count 215 (130-400) K/uL MPV 9.9 (7.4-10.4) fL Immature Gran % (Auto) 0.2 % Neut % (Auto) 63.4 % Lymph % (Auto) 22.4 % [place] % (Auto) 10.5 % Eos % (Auto) 3.1 % Baso % (Auto) 0.4 % Neut # (Auto) 5.28 (1.4-6.5) K/uL Lymph # (Auto) 1.86 (1.2-3.4) K/uL [place] # (Auto) 0.87 H (0.11-0.59) K/uL Eos # (Auto) 0.26 (0-0.5) K/uL Baso # (Auto) 0.03 (0-0.2) K/uL Immature Gran # (Auto) 0.02 (0.00-0.02) K/uL PT (9.0-12.0) Seconds INR (0.9-1.1) APTT (21.0-31.0) Seconds PTT Ratio Sodium (136-145) mmol/L Potassium (3.5-5.1) mmol/L Chloride (98-107) mmol/L Carbon Dioxide (21-32) mmol/L Anion Gap (3-11) BUN (6-23) mg/dl Creatinine (0.6-1.4) mg/dl Est Cr Clr Drug Dosing Est GFR ( Amer) ml/min Est GFR (Non-Af Amer) ml/min BUN/Creatinine Ratio (10-20) Glucose (70-99(Fasting)) mg/dl Calcium (8.5-10.1) mg/dl Magnesium (1.7-2.4) mg/dl Total Bilirubin (0.2-1.0) mg/dl AST (13-39) U/L ALT (7-52) U/L Alkaline Phosphatase (34-104) U/L Troponin I (0-0.04) ng/ml Total Protein (6.0-8.3) gm/dl Albumin (3.4-5.0) gm/dl Globulin (2.5-4.0) gm/dl Albumin/Globulin Ratio (0.9-2) Triglycerides (0-150) mg/dl Cholesterol (0-200) mg/dl LDL Cholesterol, Calc mg/dl VLDL Cholesterol, Calc (0-30) mg/dl HDL Cholesterol mg/dl Cholesterol/HDL Ratio (0-5) Lipase (11-82) U/L SARS-CoV-2, RNA, NAAT (NEGATIVE) Blood Type Antibody Screen (1) Nausea & vomiting Vomiting type: unspecified Qualified Code(s): R11.2 - Nausea with vomiting, unspecified
[2021-05-28] MEDS ORDERED: ATROPINE SULFATE 0.1 MG/ML 10ML SYR IV ONE (10:29)
[2021-05-28] MEDS ORDERED: METOPROLOL TARTRATE 1 MG/ML VIAL IV ONE (10:29)
[2021-05-28] MEDS ORDERED: DOBUTamine HCL 12.5 MG/ML 20 ML VIAL IV ONE (10:29)
[2021-05-28] MEDS ORDERED: ONDANSETRON INJ 2 MG/ML 2 ML VIAL ONE (10:54)
--- NOTE | 2021-05-28 11:32 | Cardiology Consultation ---
Date of Consultation May 28, 2021 Assessment & Plan (1) Generalized abdominal pain: (2) Chest pain: 60-year-old male with a strong family history of coronary heart disease personal history of hypertension and dyslipidemia presents with vague symptoms of waxing and waning chest discomfort and nauseousness. Time my assessment, he had received a dose of morphine about an hour prior, and was still having significant discomfort but at this point, has lasted well over 12 hours. Troponin undetectable x3 measurements, EKG negative x2. Reports vague hematemesis, and blood per rectum recently, hemoglobin is stable, blood pressure stable. The patient underwent cardiac catheterization in 2019 with widely patent coronary anatomy. For further assessment today, patient underwent dobutamine stress echocardiogram. At baseline, he described 8/10 chest, epigastric, left arm discomfort with paresthesias. Normal EKG and normal resting echocardiographic findings. With the administration of dobutamine, his symptoms of chest discomfort, was worse, but still somewhat atypical in character for angina, with negative EKG response, and normal echocardiographic response to stress. Although the stress test results were somewhat equivocal given the patient's provocation of symptoms, I see no objective evidence of ischemia with negative resting/EKG, negative cardiac enzymes, normal echocardiographic response, and normal cardiac catheterization in 2019. Shared concerns with gastroenterology given the patient's chronic use of oxycodone, he would be at risk for gastroparesis, and a gastric emptying study is tentatively planned for tomorrow. For now I recommend that we keep the patient n.p.o. if he feels better later this afternoon, could advance his diet to clear liquids and proceed with a gastric emptying study is tentatively planned. History of Present Illness Attending Physician: Kash Torres MD History of Present Illness Mr Cr is a 60 year old male seen in cardiology consultation per the request of Dr Toledo for the evaluation of chest and epigastric discomfort. Patient states he was in his normal state of health yesterday when he returned home from work, and while resting in a chair, had abrupt onset of symptoms including heavy perspiration, chest discomfort that radiated down his left arm. He subsequently felt nauseous, and vomited, and noted findings of dark [id number] emesis with some traces of red concerning for blood. He was brought to the emergency room by his daughter. He received a dose of sublingual nitroglycerin which he states partially palliated his symptoms. His symptoms were resolved with IV morphine, and has had several doses in the interim time, with recurrent discomfort afterward. He also notes that for the last 2 weeks, he has had no blood in his stool and characterizes his stools being dark, with tinges of red color in the stool and toilet bowl water. The patient's cardiac history is notable for presentation in 2019, shortly after hip replacement at which time he underwent cardiac catheterization with angiographically normal coronary arteries. In 2018 , he was found to have a gastric ulcer on EGD with gastric clipping. As well summarized in the GI consultation today, patient has had recurrent symptoms with several unrevealing studies in the interim and was hospitalized with similiar symptoms as what he describes today in September,. Family History: Father, myocardial infarction in his 50s. 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 Allergies Allergy/AdvReac Type Severity Reaction Status Date / Time ketorolac Allergy Severe SHORTNESS Verified 05/27/21 22:59 OF BREATH,RASH Home Medications Medication Instructions Recorded Confirmed Type lisinopril 20 mg tablet 20 mg PO QAM 03/16/18 05/27/21 History simvastatin 10 mg tablet 10 mg PO HS 04/26/20 05/27/21 History aspirin 81 mg tablet,delayed 81 mg PO DAILY 10/11/20 05/27/21 History release omeprazole 40 mg capsule,delayed 40 mg PO DAILYBB 10/11/20 05/27/21 History release oxycodone 5 mg tablet 5 mg PO Q6H PRN 10/11/20 05/27/21 History Patient History Medical History Acute GI bleeding Avascular necrosis of bone of right hip s/p recent replacement at [facility] CAD (coronary artery disease) Diverticulitis GERD (gastroesophageal reflux disease) HTN (hypertension) Osteoarthritis PUD (peptic ulcer disease) 2018 - gastric ulcer that required clipping Surgical History H/O vasectomy History of total right knee replacement S/P appendectomy S/P cholecystectomy S/P knee replacement S/P tonsillectomy Family History Father Coronary heart disease T2DM (type 2 diabetes mellitus) Mother Pancreatic cancer Hypertension Social History Smoking Status: Never smoker Second Hand Exposure: Yes; Hx Alcohol Use: Yes Hx Substance Use: No Preferred Language: Nigerian Communication Ability: Effective Assistant Professor Of Theater Required: No Beliefs That Will Affect Care: None marital status: Current Living Situation: Significant Other Current Living Situation Comment: Girl friend Feels Safe at Home: Yes Safety Concerns: Feels Safe At This Time Assistive Devices: None Review of Systems Review of Systems: All systems reviewed & are unremarkable except as noted in HPI & below Physical Exam Physical Exam: Temp Pulse Resp BP Pulse Ox 36.5 C 75 18 141/88 H 99 05/28/21 07:53 05/28/21 07:53 05/28/21 07:53 05/28/21 07:53 05/28/21 07:53 Constitutional: WD/WN, vitals as above Respiratory: normal respiratory effort, lungs clear to auscultation Cardiovascular: RRR, no murmur, no edema Gastrointestinal (Abdomen): Vague epigastric tenderness Neurologic: PERRL, EOMI, accommodation nl, no face palsy, no dysarthria Results & Data ([facility]) Vital Signs (Past 12 Hours) Vital Signs Temp Pulse Pulse Resp BP BP BP 05/28/21 07:53 36.5 C 75 18 141/88 H 05/28/21 07:34 77 18 126/75 05/28/21 07:20 36.5 C 75 18 141/88 H 05/28/21 06:30 66 05/28/21 02:54 88 05/28/21 02:08 36.5 C 74 20 181/96 H 05/28/21 01:49 87 16 123/85 05/28/21 00:10 79 16 128/84 Pulse Ox 05/28/21 07:53 99 05/28/21 07:34 05/28/21 07:20 99 05/28/21 06:30 05/28/21 02:54 05/28/21 02:08 99 05/28/21 01:49 97 05/28/21 00:10 96 Laboratory Results Cardiac Enzymes 05/27/21 05/27/21 05/27/21 Range/Units 20:18 21:08 22:51 AST 15 (13-39) U/L Troponin I < 0.03 < 0.03 (0-0.04) ng/ml 05/28/21 Range/Units 05:33 AST (13-39) U/L Troponin I < 0.03 (0-0.04) ng/ml Coagulation 05/27/21 05/27/21 05/28/21 Range/Units 20:18 22:51 05:33 PT 12.1 H (9.0-12.0) Seconds APTT 26.1 26.8 27.6 (21.0-31.0) Seconds Lipids 05/28/21 Range/Units 05:33 Triglycerides 77 (0-150) mg/dl Cholesterol 95 (0-200) mg/dl HDL Cholesterol 35 mg/dl Cholesterol/HDL Ratio 2.7 (0-5) CBC 05/27/21 05/27/21 05/28/21 Range/Units 20:18 22:51 05:33 WBC 8.32 5.89 (4.8-10.8) K/uL RBC 4.79 4.37 L (4.7-6.1) M/uL Hgb 14.5 14.1 13.3 L (14.0-18.0) g/dL Hct 41.3 L 40.1 L 37.7 L (42-52) % Plt Count 215 183 (130-400) K/uL Neut # (Auto) 5.28 3.62 (1.4-6.5) K/uL Lymph # (Auto) 1.86 1.49 (1.2-3.4) K/uL [place] # (Auto) 0.87 H 0.56 (0.11-0.59) K/uL Eos # (Auto) 0.26 0.20 (0-0.5) K/uL Baso # (Auto) 0.03 0.01 (0-0.2) K/uL Comprehensive Metabolic Panel 05/27/21 05/27/21 05/28/21 Range/Units 20:18 21:08 05:33 Sodium 142 140 (136-145) mmol/L Potassium 3.8 4.5 (3.5-5.1) mmol/L Chloride 110 H 109 H (98-107) mmol/L Carbon Dioxide 23 28 (21-32) mmol/L BUN 20 19 (6-23) mg/dl Creatinine 1.04 0.86 (0.6-1.4) mg/dl Glucose 82 93 (70-99(Fasting)) mg/dl Calcium 8.6 8.8 (8.5-10.1) mg/dl AST 15 (13-39) U/L ALT 23 (7-52) U/L Alkaline Phosphatase 80 (34-104) U/L Total Protein 7.0 (6.0-8.3) gm/dl Albumin 4.6 (3.4-5.0) gm/dl Intake and Output 05/27/21 05/28/21 05/28/21 22:59 06:59 14:59 Intake Total 100 / 300 200 / 300 395 / 395 Balance 100 / 300 200 / 300 395 / 395 Intake: IV 100 / 100 395 / 395 D5w and Lactated Ringers 1,000 395 / 395 ml @ 50 mls/hr IV .Q20H [facility] Rx# :[id number] PANTOprazole 80 mg In Dextrose 100 / 100 5% 100 ml @ 400 mls/hr IV [facility] Rx#:[id number] Oral 200 / 200 Other: Weight 105.9 kg 112.8 kg Weight Measurement Method Standing Scale Diagnostic Findings EKG performed this morning reveals sinus rhythm at 71 bpm, normal EKG, unchanged compared to presentation last evening.
[2021-05-28] MEDS ORDERED: FAMOTIDINE 20 MG in SYRINGE 3 ML IV ONE (14:00)
--- NOTE | 2021-05-28 15:29 | Hospitalist Progress Note ---
Date of Service May 28, 2021 Assessment & Plan Plan: Chest pain History of PUD History of normal [facility] 2018 Strong family history of CV disease -Seems most likely to be GI related -repeat EKG today while having active chest pain shows NSR with no dynamic ischemic changes -Nuclear stress test today also unremarkable with the exception of worsening symptoms during exam -CTA chest and CT abd/pelvis unremarkable -troponin neg x 3 -Appreciate GI and Cardiology input -Plan for gastric emptying study tomorrow -continue PPI -will give 1 dose IV pepcid now for ongoing pain -change morphine to 2mg IV Q 2 PRN Chronic pain -continue home oxycodone as ordered History of PUD -already on PPI -defer to GI whether patient needs repeat EGD HTN -continue lisinopril 20mg daily with hold parameters HLD -statin DVT ppx -start SQ lovenox Admission and Anticipated Discharge Date Admission Date: May 28, 2021 Subjective Went for stress test today and during test developed 10/10 chest pain with radiation down arm and up jaw. Physical Exam Physical Exam: No acute distress, non toxic, pleasant Respiratory: breathing comfortably on room air, no wheezing/rhonchi Cardiovascular: regular rate and rhythm, no murmurs/rubs/gallops Gastrointestinal (Abdomen): soft, non tender Musculoskeletal: no chest wall tenderness to palpation Neurologic: awake, alert, spontaneously moving extremities Results & Data Results & Data ([facility]) Vital Signs (Past 12 Hours) Vital Signs Temp Pulse Pulse Resp BP BP Pulse Ox 05/28/21 12:06 36.7 C 67 18 141/83 H 98 05/28/21 07:53 36.5 C 75 18 141/88 H 99 05/28/21 07:34 77 18 126/75 05/28/21 07:20 36.5 C 75 18 141/88 H 99 05/28/21 06:30 66 Laboratory Results Short CBC 05/27/21 05/27/21 05/28/21 Range/Units 20:18 22:51 05:33 WBC 8.32 5.89 (4.8-10.8) K/uL Hgb 14.5 14.1 13.3 L (14.0-18.0) g/dL Hct 41.3 L 40.1 L 37.7 L (42-52) % Plt Count 215 183 (130-400) K/uL BMP 05/27/21 05/27/21 05/28/21 20:18 21:08 05:33 Sodium 142 140 Potassium 3.8 4.5 Chloride 110 H 109 H Carbon Dioxide 23 28 BUN 20 19 Creatinine 1.04 0.86 Glucose 82 93 Calcium 8.6 8.8 Cardiac Enzymes 05/27/21 05/27/21 05/28/21 Range/Units 20:18 22:51 05:33 Troponin I < 0.03 < 0.03 < 0.03 (0-0.04) ng/ml Liver Function 05/27/21 05/27/21 Range/Units 20:18 21:08 Total Bilirubin 0.4 (0.2-1.0) mg/dl AST 15 (13-39) U/L ALT 23 (7-52) U/L Alkaline Phosphatase 80 (34-104) U/L Albumin 4.6 (3.4-5.0) gm/dl Medications Administered Current Inpatient Medications Acetaminophen (Acetaminophen 325 Mg Tab) 650 mg PO Q4H PRN PRN Reason: Pain or Fever Stop: 06/27/21 02:07 Amlodipine Besylate (Amlodipine Besylate 5 Mg Tab) [facility] Stop: 06/27/21 08:59 Last Admin: 05/28/21 07:29 Dose: 2.5 mg Documented by: Dextrose/Lactated Ringer's (D5w And Lactated Ringers) 1,000 mls @ 50 mls/hr IV .Q20H [facility] Stop: 06/27/21 00:44 Last Infusion: 05/28/21 11:57 Dose: 50 mls/hr Documented by: Pantoprazole Sodium 40 mg/ (Syringe) 10 mls @ 5 mls/min IV BID [facility] Stop: 06/27/21 08:59 Last Admin: 05/28/21 07:29 Dose: 5 mls/min Documented by: Promethazine HCl 12.5 mg/ (Sodium Chloride) 50.5 mls @ 202 mls/hr IV Q6H PRN PRN Reason: Nausea And Vomiting Stop: 06/27/21 02:07 Lisinopril (Lisinopril 40 Mg Tab) 40 mg PO QAM [facility] Stop: 06/27/21 05:14 Last Admin: 05/28/21 05:43 Dose: 40 mg Documented by: Morphine Sulfate (Morphine Sulfate 4 Mg/Ml 1 Ml Carp\Vial) 2 mg IV Q2HWA PRN PRN Reason: Pain Stop: 06/11/21 02:07 Last Admin: 05/28/21 13:47 Dose: 2 mg Documented by: Nitroglycerin (Nitroglycerin Sl 0.4 Mg/Tab Tab) 0.4 mg SL UD PRN PRN Reason: Chest Pain Stop: 06/27/21 02:07 Last Admin: 05/28/21 07:30 Dose: 0.4 mg Documented by: Oxycodone HCl (Oxycodone Hcl Ir 5 Mg Tab (Immediate Release)) 5 mg PO Q4H PRN PRN Reason: Pain Stop: 06/11/21 00:29 Last Admin: 05/28/21 09:23 Dose: 5 mg Documented by: Simvastatin (Simvastatin 10 Mg Tab) 10 mg PO HS [facility] Stop: 06/27/21 20:59
--- NOTE | 2021-05-28 18:22 | Hospitalist Progress Note ---
Date of Service May 28, 2021 Assessment & Plan Admission and Anticipated Discharge Date Admission Date: May 28, 2021 Subjective Hold off on starting SQ lovenox. Patient with blood streaked emesis prior to admission Results & Data Results & Data ([facility]) Vital Signs (Past 12 Hours) Vital Signs Temp Pulse Pulse Resp BP BP Pulse Ox 05/28/21 17:25 69 05/28/21 16:00 36.4 C L 73 14 105/65 97 05/28/21 12:06 36.7 C 67 18 141/83 H 98 05/28/21 07:53 36.5 C 75 18 141/88 H 99 05/28/21 07:34 77 18 126/75 05/28/21 07:20 36.5 C 75 18 141/88 H 99 05/28/21 06:30 66
[2021-05-28] MEDS: SIMVASTATIN 10 MG TAB PO SCH (20:14)
[2021-05-29] MEDS: MoRPHine SULFATE 4 MG/ML 1 ML CARP\\VIAL IV PRN ×9 (00:33→23:04)
[2021-05-29] MEDS: PROMETHAZINE HCL 12.5 MG in SODIUM CHLORIDE 0.9% 50 ML IV PRN ×2 (02:31→14:08)
--- NOTE | 2021-05-29 06:02 | Electrocardiogram Report ---
Test Reason : Blood Pressure : / mmHG Vent. Rate : 092 BPM Atrial Rate : 092 BPM P-R Int : 188 ms QRS Dur : 092 ms QT Int : 348 ms P-R-T Axes : 056 -30 052 degrees QTc Int : 430 ms Normal sinus rhythm Left axis deviation Abnormal ECG When compared with ECG of 13-OCT-2020 05:04, No significant change was found Confirmed by Ramiro Wiggins ([id number]) on 05/29/2021 6:02:07 AM Referred By: REFERRED SELF Confirmed By:Ramiro Wiggins
--- NOTE | 2021-05-29 06:18 | Electrocardiogram Report ---
Test Reason : Blood Pressure : / mmHG Vent. Rate : 071 BPM Atrial Rate : 071 BPM P-R Int : 178 ms QRS Dur : 090 ms QT Int : 408 ms P-R-T Axes : 050 -18 036 degrees QTc Int : 443 ms Normal sinus rhythm with sinus arrhythmia Normal ECG When compared with ECG of 27-MAY-2021 20:10, No significant change was found Confirmed by Ramiro Wiggins ([id number]) on 05/29/2021 6:17:34 AM Referred By: REFERRED SELF Confirmed By:Ramiro Wiggins
--- NOTE | 2021-05-29 06:37 | Electrocardiogram Report ---
Test Reason : Blood Pressure : / mmHG Vent. Rate : 071 BPM Atrial Rate : 071 BPM P-R Int : 194 ms QRS Dur : 090 ms QT Int : 400 ms P-R-T Axes : 061 -18 046 degrees QTc Int : 434 ms Normal sinus rhythm Normal ECG When compared with ECG of 28-MAY-2021 07:24, No significant change was found Confirmed by Ramiro Wiggins ([id number]) on 05/29/2021 6:36:22 AM Referred By: REFERRED SELF Confirmed By:Ramiro Wiggins
[2021-05-29] MEDS ORDERED: ENOXAPARIN INJ 40 MG/0.4 ML SYR SQ SCH (09:00)
--- NOTE | 2021-05-29 09:17 | Communication Note ---
Date of Service: May 29, 2021 Attempted to see patient x 2 on floor, unable to find in nuclear medicine. Chart reviewed. Persistent GI symptoms reported. At [facility]ES now. Will await results of GES and re-evaluate tomorrow. Thank you for allowing us to participate in the care of this patient. Please call with any acute changes, questions or concerns. Please see addendum below with additional recommendation from my supervising physician.
--- NOTE | 2021-05-29 10:28 | Cardiology Progress Note ---
Date of Service May 29, 2021 Assessment & Plan (1) Chest pain: (2) Abdominal pain: (3) Nausea & vomiting: Plan: 60-year-old male presents with constellation of resting chest and epigastric discomfort, blood per rectum per his report, hematemesis. Hemoglobin unchanged on serial measurements with 2 measurements obtained on 05/27/2021, and a.m. of 05/28/2021, no additional hemoglobin/hematocrit obtained today 05/29/2021. BP stable. Serial troponin I measurements undetectable x3. Serial EKG tracings performed without evidence of ischemia. Equivocal symptoms noted at the time of dobutamine stress testing with baseline at 7/10 intensity chest and epigastric discomfort prior to test, that became more severe with administration dobutamine, however EKG, echocardiogram performed at same time were normal. Cardiac catheterization films dating back to 2019 reviewed, angiographically normal coronaries at that time. Patient describes ongoing 7/10 discomfort. He is in no distress at the time of my assessment. Reviewed the [facility] aware data base, patient has been receiving monthly prescriptions for his reported oxycodone 5 mg on a [facility] basis [facility] over the last year, with no other prescriptions noted. Review of his outside record in the [facility] Chart includes an additional evaluation within the [facility] health system during which time he underwent an EGD on 01/17/2020 for complaint of hematemesis at that time, with normal findings. Ongoing PPI therapy recommended at that time. Test results to date discussed with patient in detail, rationale for gastric emptying study discussed with regards to evaluation of gastroparesis. Given the nature of his symptoms, clinically seems unlikely to be angina and anginal equivalent. Admission and Anticipated Discharge Date Admission Date: May 28, 2021 Subjective Patient seen in follow-up of chest discomfort, abdominal discomfort. He was examined in wheelchair, in between images and the nuclear medicine department. He has received morphine and promethazine overnight for ongoing symptoms. He has not had any more bowel movements. Does note slight tinge of red in one episode of vomitus. Telemetry overnight revealed sinus rhythm in the 50s to 60s. Review of Systems Review of Systems: All systems reviewed & are unremarkable except as noted in HPI & below Physical Exam Physical Exam: As noted exam limited as it took place in the hallway of nuclear medicine in between his study images for gastric emptying study Constitutional: WD/WN, vitals as above Respiratory: normal respiratory effort, lungs clear to auscultation Cardiovascular: RRR, no murmur, no edema Neurologic: PERRL, EOMI, accommodation nl, no face palsy, no dysarthria Results & Data ([facility]) Vital Signs (Past 12 Hours) Vital Signs Temp Pulse Resp BP Pulse Ox Pulse Ox 05/29/21 04:00 96 05/29/21 03:52 36.5 C 59 L 18 105/61 96 05/28/21 23:53 36.6 C 63 20 103/63 97 Laboratory Results Intake and Output 05/28/21 05/29/21 05/29/21 22:59 06:59 14:59 Intake Total 1425.833 / 1871.333 50.5 / 1871.333 Balance 1425.833 / 1871.333 50.5 / 1871.333 Intake: IV 525.833 / 971.333 50.5 / 971.333 D5w and Lactated Ringers 1,000 525.833 / 920.833 ml @ 50 mls/hr IV .Q20H [facility] Rx# :[id number] Promethazine HCl 12.5 mg In 50.5 / 50.5 Sodium Chloride 0.9% 50 ml @ 202 mls/hr IV Q6H PRN Rx#: [id number] Oral 900 / 900 Other: # Unmeasured Voids 1 1 Weight 114 kg Weight Measurement Method Built in [facility] Diagnostic Findings LDL cholesterol is obtained on 05/28/2021 45 mg/dL. Repeat EKG performed this morning 05/29/2021, 6:08 AM, and reviewed independently reveals normal sinus rhythm at 64 bpm, borderline first-degree AV block, normal ST segments. The preliminary computer interpretation raises concerns of age- indeterminate septal infarct pattern, provide personal interpretation, this is likely due to lead malposition of lead V2 which is similar appearance to lead V1, I do not believe this finding is pathologic. Of note, septal wall motion normal time of echocardiogram yesterday. (1) Chest pain Chest pain type: unspecified Qualified Code(s): R07.9 - Chest pain, unspecified (2) Abdominal pain Abdominal location: epigastric Qualified Code(s): R10.13 - Epigastric pain (3) Nausea & vomiting Vomiting type: unspecified Qualified Code(s): R11.2 - Nausea with vomiting, unspecified
[2021-05-29] MEDS: PANTOprazole 40 MG in SYRINGE 0 ML IV SCH ×2 (11:40→20:28)
[2021-05-29] MEDS: lisinopril 40 MG TAB PO SCH (13:02)
[2021-05-29] MEDS: amLODIPine BESYLATE 5 MG TAB PO SCH (13:03)
--- NOTE | 2021-05-29 13:10 | Nuclear Medicine Report ---
NUCLEAR GASTRIC EMPTYING STUDY CLINICAL HISTORY: Chronic abdominal pain. Nausea and vomiting. COMPARISON STUDY: Abdominal CT dated 05/28/2021 TECHNIQUE: Following the oral administration of 1.1 mCi of technetium 99m sulfur colloid in egg sandw ich and 8 ounces of water, static abdominal images are obtained anteriorly and posteriorly at 0 minut es, 1 hour, 2 hour, and 4 hour time intervals. Gastric emptying was calculated utilizing the geometri c mean method. FINDINGS: There is approximately 81% activity remaining at the 1 hour time interval, 53% remaining at the 2 hour time interval (normal is less than 60%), and 3% activity remaining at the 4 hour time int erval (normal is less than 10%). IMPRESSION: Findings are consistent with normal gastric emptying for solids. ACT 112: Negative or not required by law. Electronically signed by: Sedrick Francis M.D. 05/29/2021 1:09 PM
[2021-05-29] MEDS: D5W AND LACTATED RINGERS 1,000 ML IV SCH (16:16)
--- NOTE | 2021-05-29 18:10 | Hospitalist Progress Note ---
Date of Service May 29, 2021 Assessment & Plan (1) Chest pain: Plan: Epigastric/retrosternal pain with h/o bleeding PUD requiring clipping -Seems most likely to be GI related. Denies any NSAIDs use. Never smoker, denies alcohol use. -repeat EKG while having active chest pain shows NSR with no dynamic ischemic changes. Trop x3 negative -Nuclear stress test unremarkable with the exception of worsening symptoms during exam -CTA chest and CT abd/pelvis unremarkable - Gastric emptying study normal - Per patient, patient had bleeding gastric ulcer in 2019 and required clipping and this pain feels similar to that. States he has bad GERD symptoms despite PPI. Recent EGD about 6 months ago showed gastritis. It is likely he has worsening gastritis symptoms and peptic ulcer, hence would benefit from repeat EGD. Will ask GI for considering EGD inhouse given persistent symptoms and negative cardiac work up. Will continue IV PPI for now. Will keep npo overnight. -continue iv morphine PRN Chronic pain -continue home oxycodone as ordered HTN- stable, continue lisinopril 20mg daily with hold parameters HLD- continue statin DVT ppx- SQ heparin Admission and Anticipated Discharge Date Admission Date: May 28, 2021 Subjective Still have some abdominal discomfort 7/10 and intermittent nausea. Discussed that he has normal gastric emptying study. he states he had multiple episodes of similar pain over the past 2 years. States last time he had similar severe symptoms were in 2019 when he was found to have bleeding peptic ulcer and required clipping. He would like to eat. Physical Exam Physical Exam: General: Lying comfortably in bed, not in distress, on room air HEENT: EOMI, MARIA TERESA, MMM Chest: Clear breath sounds bilaterally, no wheezes or crackles CVS: Regular rate and rhythm, normal heart sounds, no murmur Abdomen: Soft, non tender, not distended, normal bowel sounds Neuro: Awake, alert, oriented, conversing well, non focal Extremities: No cyanosis, clubbing or edema Results & Data Results & Data ([facility]) Vital Signs (Past 12 Hours) Vital Signs Temp Pulse Pulse Resp BP Pulse Ox 05/29/21 15:15 36.7 C 66 17 118/69 97 05/29/21 14:53 66 05/29/21 11:23 36.7 C 66 16 141/82 H 95 Medications Administered Current Inpatient Medications Acetaminophen (Acetaminophen 325 Mg Tab) 650 mg PO Q4H PRN PRN Reason: Pain or Fever Stop: 06/27/21 02:07 Amlodipine Besylate (Amlodipine Besylate 5 Mg Tab) [facility] [place] Stop: 06/27/21 08:59 Last Admin: 05/29/21 13:03 Dose: 2.5 mg Documented by: Dextrose/Lactated Ringer's (D5w And Lactated Ringers) 1,000 mls @ 50 mls/hr IV .Q20H VELIA Stop: 06/27/21 00:44 Last Admin: 05/29/21 16:16 Dose: 50 mls/hr Documented by: Pantoprazole Sodium 40 mg/ (Syringe) 10 mls @ 5 mls/min IV BID [facility] Stop: 06/27/21 08:59 Last Admin: 05/29/21 11:40 Dose: 5 mls/min Documented by: Promethazine HCl 12.5 mg/ (Sodium Chloride) 50.5 mls @ 202 mls/hr IV Q6H PRN PRN Reason: Nausea And Vomiting Stop: 06/27/21 02:07 Last Infusion: 05/29/21 14:25 Dose: Infused Documented by: Lisinopril (Lisinopril 40 Mg Tab) 40 mg PO [facility] Stop: 06/27/21 05:14 Last Admin: 05/29/21 13:02 Dose: 40 mg Documented by: Morphine Sulfate (Morphine Sulfate 4 Mg/Ml 1 Ml Carp\Vial) 2 mg IV Q2HWA PRN PRN Reason: Pain Stop: 06/11/21 02:07 Last Admin: 05/29/21 15:33 Dose: 2 mg Documented by: Nitroglycerin (Nitroglycerin Sl 0.4 Mg/Tab Tab) 0.4 mg SL UD PRN PRN Reason: Chest Pain Stop: 06/27/21 02:07 Last Admin: 05/28/21 07:30 Dose: 0.4 mg Documented by: Oxycodone HCl (Oxycodone Hcl Ir 5 Mg Tab (Immediate Release)) 5 mg PO Q4H PRN PRN Reason: Pain Stop: 06/11/21 00:29 Last Admin: 05/28/21 09:23 Dose: 5 mg Documented by: Simvastatin (Simvastatin 10 Mg Tab) 10 mg PO [facility] Stop: 06/27/21 20:59 Last Admin: 05/28/21 20:14 Dose: 10 mg Documented by: (1) Chest pain Chest pain type: unspecified Qualified Code(s): R07.9 - Chest pain, unspecified
[2021-05-29] MEDS: SIMVASTATIN 10 MG TAB PO SCH (20:26)
[2021-05-29] MEDS: HEPARIN SOD 5,000 UNIT/0.5 ML VIAL SQ SCH (20:51)
--- NOTE | 2021-05-29 22:04 | Electrocardiogram Report ---
Test Reason : Blood Pressure : / mmHG Vent. Rate : 064 BPM Atrial Rate : 064 BPM P-R Int : 200 ms QRS Dur : 092 ms QT Int : 424 ms P-R-T Axes : 054 -10 046 degrees QTc Int : 437 ms Normal sinus rhythm Septal infarct , age undetermined Abnormal ECG When compared with ECG of 28-MAY-2021 12:17, Septal infarct is now Present Confirmed by Ramiro Wiggins ([id number]) on 05/29/2021 10:04:18 PM Referred By: REFERRED SELF Confirmed By:Ramiro Wiggins
[2021-05-30] MEDS: MoRPHine SULFATE 4 MG/ML 1 ML CARP\\VIAL IV PRN ×4 (01:42→07:57)
[2021-05-30] MEDS: PROMETHAZINE HCL 12.5 MG in SODIUM CHLORIDE 0.9% 50 ML IV PRN (04:46)
[2021-05-30 07:28] LABS: Basophils # (auto) 0.02 K/uL (0-0.2); Basophils % (auto) 0.4 %; Eosinophils # (auto) 0.24 K/uL (0-0.5); Eosinophils % (auto) 5.3 %; Hematocrit (blood only) 37.3 % (42-52); Hemoglobin 13.1 g/dL (14.0-18.0); Immature Granulocytes # (auto) 0.01 K/uL (0.00-0.02); Immature Granulocytes % (auto) 0.2 %; Lymphocytes # (auto) 1.14 K/uL (1.2-3.4); Mean Corpuscular Hemoglobin 30.5 pg (25-34); Mean Corpuscular Hgb Conc 35.1 g/dL (32-36); Mean Corpuscular Volume 86.7 fL (80-100); Mean Platelet Volume 9.6 fL (7.4-10.4); Monocytes # (auto) 0.52 K/uL (0.11-0.59); Monocytes % (auto) 11.4 %; Neutrophils # (auto) 2.63 K/uL (1.4-6.5); Neutrophils % (auto) 57.7 %; Platelet Count 164 K/uL (130-400); RDW Coefficient of Variation 12.8 % (11.5-14.5); RDW Standard Deviation 41.1 fL (36.4-46.3); White Blood Count 4.56 K/uL (4.8-10.8)
[2021-05-30 08:04] LABS: Anion Gap 3 (3-11); BUN Creatinine Ratio 15.1 (10-20); Blood Urea Nitrogen 14 mg/dl (6-23); Calcium 8.8 mg/dl (8.5-10.1); Carbon Dioxide 29 mmol/L (21-32); Chloride 108 mmol/L (98-107); Est GFR (African American) 103.8 ml/min; Est GFR (Non-African American) 89.5 ml/min; Glucose 100 mg/dl (70-99(Fasting)); Magnesium 2.1 mg/dl (1.7-2.4); Sodium 140 mmol/L (136-145)
[2021-05-30] MEDS: PANTOprazole 40 MG in SYRINGE 0 ML IV SCH (08:04)
[2021-05-30] MEDS: HEPARIN SOD 5,000 UNIT/0.5 ML VIAL SQ SCH (08:04)
--- NOTE | 2021-05-30 09:31 | Gastroenterology Progress Note ---
Date of Service May 30, 2021 Assessment & Plan (1) Nausea & vomiting: Plan: 60 year old male admitted w/ abdominal pain, nausea/vomiting, hematemesis x 2 without any change in bowel habits. He has chronic abd pain, vomiting. GES negative HGB stable VSS stable Please transition to PO PPI BID Will arrange outpatient EGD GI to sign off No contraindication to diet or discharge Thank you for allowing us to participate in the care of this patient. Please call with any acute changes, questions or concerns. Please see addendum below with additional recommendation from my supervising physician. (2) Generalized abdominal pain: Admission and Anticipated Discharge Date Admission Date: May 28, 2021 Supervising Physician Co-Signing Physician Notes Seen by cardiology, ges normal PE unchanged Agree with further plan of care. Subjective Pt was seen and evaluated, chart reviewed. GES reviewed and negative He notes he did have some pain with the empting scan but is hungry He has vomitted x 2 since admission, trace hematemesis No emesis reported in over 24 hours No black or bloody stools HGB has remained stable since admission at 13 No BUN elevation EUS 2020: Evidence of a cholecystectomy. - There was no sign of significant pathology in the common bile duct. - There was no evidence of significant pathology in the visualized portion of the liver. - There was no sign of significant pathology in the entire pancreas. - Endosonographic images of the left adrenal gland were unremarkable. EGD 2020: - Normal esophagus. - Z-line regular, 38 cm from the incisors. - Gastritis, likely related to medications (biopsied in past). - Multiple gastric polyps, fundic polyps based on prior biopsies. - An endoclip was found in the stomach. - Normal examined duodenum. - Non-bleeding duodenal diverticulum. - No specimens collected. Colonoscopy 2020: The examined portion of the ileum was normal. - Moderate diverticulosis in the sigmoid colon, in the descending colon and in the ascending colon. - Internal hemorrhoids. - The examination was otherwise normal. - No specimens collected. Review of Systems Review of Systems: All systems reviewed & are unremarkable except as noted in HPI & below Physical Exam 2 Constitutional: WD/WN, vitals as above Respiratory: normal respiratory effort; no respiratory distress, no labored breathing and no retractions Cardiovascular: Rate/Rhythm: regular rate Gastrointestinal (Abdomen): normal bowel sounds, soft, nontender, no he patosplenomegaly Skin: no rashes, warm and dry Results & Data ([facility]) Vital Signs (Past 12 Hours) Vital Signs Temp Pulse Pulse Resp BP Pulse Ox Pulse Ox 05/30/21 07:26 36.7 C 63 17 146/86 H 99 05/30/21 04:16 63 05/30/21 04:00 95 05/30/21 03:46 36.4 C L 68 18 149/91 H 96 05/29/21 23:34 36.5 C 71 18 125/74 95 Laboratory Results 05/30/21 05/30/21 Range/Units 06:53 06:53 WBC 4.56 L (4.8-10.8) K/uL RBC 4.30 L (4.7-6.1) M/uL Hgb 13.1 L (14.0-18.0) g/dL Hct 37.3 L (42-52) % MCV 86.7 (80-100) fL MCH 30.5 (25-34) pg MCHC 35.1 (32-36) g/dL RDW Std Deviation 41.1 (36.4-46.3) fL RDW Coeff of Kim 12.8 (11.5-14.5) % Plt Count 164 (130-400) K/uL MPV 9.6 (7.4-10.4) fL Immature Gran % (Auto) 0.2 % Neut % (Auto) 57.7 % Lymph % (Auto) 25.0 % Bureau % (Auto) 11.4 % Eos % (Auto) 5.3 % Baso % (Auto) 0.4 % Neut # (Auto) 2.63 (1.4-6.5) K/uL Lymph # (Auto) 1.14 L (1.2-3.4) K/uL Bureau # (Auto) 0.52 (0.11-0.59) K/uL Eos # (Auto) 0.24 (0-0.5) K/uL Baso # (Auto) 0.02 (0-0.2) K/uL Immature Gran # (Auto) 0.01 (0.00-0.02) K/uL Sodium 140 (136-145) mmol/L Potassium 4.0 (3.5-5.1) mmol/L Chloride 108 H (98-107) mmol/L Carbon Dioxide 29 (21-32) mmol/L Anion Gap 3 (3-11) BUN 14 (6-23) mg/dl Creatinine 0.93 (0.6-1.4) mg/dl Est Cr Clr Drug Dosing Not Reportable Est GFR ( Amer) 103.8 ml/min Est GFR (Non-Af Amer) 89.5 ml/min BUN/Creatinine Ratio 15.1 (10-20) Glucose 100 H (70-99(Fasting)) mg/dl Calcium 8.8 (8.5-10.1) mg/dl Phosphorus 3.0 (2.5-4.9) mg/dl Magnesium 2.1 (1.7-2.4) mg/dl (1) Nausea & vomiting Vomiting type: unspecified Qualified Code(s): R11.2 - Nausea with vomiting, unspecified
[2021-05-30] MEDS: D5W AND LACTATED RINGERS 1,000 ML IV SCH (10:09)
--- NOTE | 2021-05-30 10:42 | Cardiology Progress Note ---
Date of Service May 30, 2021 Assessment & Plan (1) Chest pain: (2) Abdominal pain: (3) Nausea & vomiting: Plan: 60-year-old male presents with constellation of resting chest and epigastric discomfort, blood per rectum per his report, hematemesis. Hemoglobin unchanged on serial measurements , most recent measurement of 13.1 this morning 05/30/2021 2. BP stable. Although patient describes ongoing 7/10 intensity chest and abdominal discomfort, he appears to be in no acute distress. Serial troponin I measurements undetectable x3. Serial EKG tracings performed without evidence of ischemia. Equivocal symptoms noted at the time of dobutamine stress testing with baseline at 7/10 intensity chest and epigastric discomfort prior to test, that became more severe with administration dobutamine, however EKG, echocardiogram performed at same time were normal. Given the nature of his symptoms, clinically seems unlikely to be angina and anginal equivalent. Gastric emptying study was normal. Defer further evaluation and treatment to the hospitalist and GI services. No indication for further cardiac testing at this time. Prior to hospital treatment with aspirin on hold. Admission and Anticipated Discharge Date Admission Date: May 28, 2021 Subjective Patient seen in cardiology follow-up. Tolerated evening meal last night, with mild nauseousness a few hours later. Currently n.p.o. again. Telemetry reveals sinus rhythm in the 70s. Physical Exam Constitutional: WD/WN, vitals as above Respiratory: normal respiratory effort, lungs clear to auscultation Cardiovascular: RRR, no murmur, no edema Neurologic: PERRL, EOMI, accommodation nl, no face palsy, no dysarthria Results & Data ([facility]) Vital Signs (Past 12 Hours) Vital Signs Temp Pulse Pulse Resp BP Pulse Ox Pulse Ox 05/30/21 09:36 60 05/30/21 07:26 36.7 C 63 17 146/86 H 99 05/30/21 04:16 63 05/30/21 04:00 95 05/30/21 03:46 36.4 C L 68 18 149/91 H 96 05/29/21 23:34 36.5 C 71 18 125/74 95 (1) Chest pain Chest pain type: unspecified Qualified Code(s): R07.9 - Chest pain, unspecified (2) Abdominal pain Abdominal location: epigastric Qualified Code(s): R10.13 - Epigastric pain (3) Nausea & vomiting Vomiting type: unspecified Qualified Code(s): R11.2 - Nausea with vomiting, unspecified
[2021-05-30] MEDS: lisinopril 40 MG TAB PO SCH (12:16)
[2021-05-30] MEDS: amLODIPine BESYLATE 5 MG TAB PO SCH (12:16)
--- NOTE | 2021-05-30 17:49 | Discharge Summary ---
Date of Service May 30, 2021 Admission HPI Per Admitting Provider History obtained from patient and records. Medical history significant for hypertension, hyperlipidemia, PUD, recurrent diverticulitis, chronic pain, past tobacco abuse. Last confinement September 2020 for chest pain associated with GI bleed. No ACS as per cardiology. No GI endoscopy during confinement. Last week, patient noted dark stools without abdominal pain complaints. Yesterday afternoon, patient noted achy left-sided chest pain going to his neck and left arm with shortness of breath and diaphoresis. No unusual cough symptoms. No headache complaints. Patient subsequently had hematemesis with specks of blood with achy upper abdominal pain. Chest pain partially relieved by nitroglycerin at the ER. 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, [employer] employee Admission Exam Per Admitting Provider GENERAL: Comfortable, pleasant, obese, no respiratory distress SKIN: Normal color, warm HEENT: Alopecia, Rinard palpebral conjunctivae, no ptosis, lip asymmetry (unknown duration), moist buccal mucosa NECK : Supple, short neck, no tenderness CHEST : CTA, no tenderness HEART : RRR, no obvious murmurs ABDOMEN: Some distention, nontender EXTREMITIES : No LE swelling/tenderness, no other conspicuous deformities noted NEUROLOGIC : Coherent, no facial asymmetry, no other gross focality Principal Diagnosis Abdominal pain. Nausea/vomiting of unspecified etiology Discharge Exam General: Patient already dressed up and ready to leave when I got a message from RN that patient wanted to leave as he is upset that EGD is not being done inhouse to figure out his problem. During my encounter, he was sitting comfortably in bed, not in distress, on room air HEENT: EOMI, MARIA TERESA, MMM Chest: Clear breath sounds bilaterally, no wheezes or crackles CVS: Regular rate and rhythm, normal heart sounds, no murmur Abdomen: Soft, mild generalized tenderness, not distended, normal bowel sounds Neuro: Awake, alert, oriented, conversing well, non focal Extremities: No cyanosis, clubbing or edema Discharge Data Allergies Allergy/AdvReac Type Severity Reaction Status Date / Time ketorolac Allergy Severe SHORTNESS Verified 05/27/21 22:59 OF BREATH,RASH Consultations 05/27/21 22:34 ED Decision to Admit Stat 05/28/21 02:08 Consult Cardiology Routine Consult Gastroenterology Routine Ordered Studies 05/27/21 20:46 CT angio chest dissec wo/w con Stat 05/28/21 00:30 CT abd pelvis wo con Urgent CT head/brain wo con Urgent Hospital Course (1) Chest pain: Generalized abdominal pain with nausea/vomiting of unspecified etiology H/o chronic pain H/o bleeding PUD requiring clipping - Denies any NSAIDs use. Never smoker, denies alcohol use. Takes oxycodone at home as needed for pain - Cardiac etiology was ruled out with negative serial trop, unremarkable EKG and stress test. Seen by cardiology - CTA chest and CT abd/pelvis with no acute abnormality - Gastric emptying study normal - Per patient, patient had bleeding gastric ulcer in 2019 and required clipping and this pain feels similar to that. States he has bad GERD symptoms despite PPI. Recent EGD about 6 months ago showed gastritis. It is likely he has worsening gastritis symptoms and peptic ulcer, hence would benefit from repeat EGD. I communicated with GI with mine and patient concerns, however they are not convinced and recommended no further in house work up and signed off. GI recommended OP endoscopy. Patient was visibly upset and did not want to stay for symptomatic management. He was already dressed up and ready to leave when I got a message from RN that patient wanted to leave. He states he has some roxicodone at home along with PPI and zofran and states he should be able to manage at home. He states he would come back if worsening symptoms. - PPI increased to bid. F/u GI as OP for EGD Chronic pain -continue home oxycodone as ordered HTN- BP elevated, lisinopril increased to 40 mg daily HLD- continue statin Total Time Total Time Spent Total Time Spent (In Minutes): 40 Discharge Plan Discharge Items Patient Disposition: Home - Self-Care Reason For Visit: CHEST PAIN, UGIB Discharge Diagnosis: Abdominal pain, nausea/vomiting of unspecified etiology Activity: Resume your previous activity Non-emergency contact: Primary Care Provider and [employer] Call non-emergency contact if: you have any medication questions, your symptoms worsen and your pain is concerning for you Follow-up/Referrals: Anup Al PA-C [Primary Care Provider] - Diet: Regular Addtl Attending Provider Instructions: We recommended you stay for further symptomatic management but you wanted to leave. Please see Gastroenterology for outpatient endoscopy. Please come to emergency immediately for any worsening symptoms Pending Studies at Discharge: No Stand-Alone Forms: My [facility], Smoking Cessation Medications and DC Order Prescriptions: Continued simvastatin 10 mg Tablet 10 mg PO HS RF: 0 aspirin 81 mg Tablet,Delayed Release (Dr/Ec) 81 mg PO DAILY RF: 0 oxycodone 5 mg tablet 5 mg PO Q6H PRN (Reason: Pain) RF: 0 Changed lisinopril 20 mg Tablet 40 mg PO QAM Qty: 0 RF: 0 omeprazole 40 mg capsule,delayed release(DR/EC) 40 mg PO BID Qty: 0 RF: 0 Discharge Orders: Discharge Order (Routine); Ordered 05/30/21 Ordered By: Luis Alberto Cabral Admission Data Admit Date/Time: 05/28/21 00:33 Attending Provider: Luis Alberto Cabral Admit Provider: Richard Toledo Primary Care Provider: Anup Al Other Providers: Richard Toledo ; Saravanan Mccormick ; Luis Cintron ; Bakari George ; Prem Ureña ; Anup Garcia ; Joe Garzon ; Philomena [place] ; Nimco Meraz ; Rae Pedersen ; Aashish Vaughan ; Tabatha Amaro ; Radha Macias ; Alia Waterman ; Monica Ohara ; Jesus Jarrett ; Erika Armando ; Maco Guerrero ; Alphonse Cruz ; Carmel Johnson ; Christine García ; Aneta Oliveira ; Karen Field ; Vanessa Redding ; [facility] Other Interventions: Discharge Summary Assessment (RN) Last Done: 05/30/21 12:17
== END 2021-05-30 14:05 | disposition home or self-care (01) ==
LOC: 2S 19:54 → ED 19:54 → SUATTDRO 05-28 00:33 → 2S 05-28 01:49